=== PATIENT | male | born 1965 | race Caucasian/White ===

== ENCOUNTER 2018-10-17 11:41 | Inpatient (IN) | payer OTHER ==
[~2018-10-17] VITALS: Ht 185.4 cm; Wt 163.4 kg
[2018-10-17] VITALS (21 sets, daily range): BP systolic 96–132; BP diastolic 58–83; PULSE 70–87; RESP 13–27
[2018-10-17] MEDS ORDERED: ETOMIDATE 20 MG INJ IV STA (12:44)
[2018-10-17] MEDS ORDERED: SUCCINYLCHOLINE CHLORIDE 100 MG/5 ML SYG IV STA (12:44)
[2018-10-17] MEDS ORDERED: PROPOFOL 100 ML IV STA (12:44)
[2018-10-17] MEDS ORDERED: IPRATROPIUM (NEB) 0.5 MG/2.5 ML AMP INH STA (13:08)
[2018-10-17] MEDS ORDERED: ALBUTEROL 0.5% (NEB) 2.5 MG/0.5 ML AMP INH STA (13:08)
[2018-10-17] MEDS ORDERED: LISI-471 PO (13:10)
[2018-10-17] MEDS ORDERED: HYDR25TA6 PO (13:10)
--- NOTE | 2018-10-17 13:29 | ERD ---
ER Documentation Chief Complaint Chief Complaint sob, rash, bilat foot pain, bodyaches x 5 days HPI This is a 52-year-old male with a past medical history of hypertension. The patient lives in a group home house. EMS indicated that his sister had been visiting him and noticed the patient appeared very disheveled and was having some difficulty breathing with shortness of breath. Therefore she phoned 911. When EMS arrived they stated that the patient was alert and awake answering questions and mild dyspnea. The patient smokes tobacco. Indicates he does not have any underlying pulmonary disease. Indicates he has had a rash in the groin region and over his feet for the past 5 days. He had a productive cough with whitish sputum. The patient is morbidly obese and states he is able to ambulate with assistance. He denies any recent hospitalizations. He denies a headache. His sister arrived to the emergency department indicated that 7 years ago the patient was at all of the hospital and indicated he was a prediabetic. Since that time she indicates the patient goes to a free clinic to receive care but indicates the patient is noncompliant with all his medications. She also indicates that the patient takes Lasix. They have a family history as his father had congestive heart failure with a pacemaker ROS All systems reviewed and are negative except as per history of present illness. Medications Home Meds Reported Medications Hydrochlorothiazide* (Hydrochlorothiazide*) 25 Mg Tab, 25 MG PO DAILY, #30 TAB 10/17/18 Lisinopril* (Lisinopril*) 20 Mg Tablet, 20 MG PO DAILY, #30 TAB 10/17/18 Allergies Allergies: Coded Allergies: No Known Allergy (Unverified , 10/17/18) PMhx/Soc Medical and Surgical Hx: pt denies Medical Hx Hx Cardiac Disorders: Yes (htn) Hx Psychiatric Problems: No Hx Miscellaneous Medical Probl: Yes (dm, obese) Hx Alcohol Use: Yes Hx Substance Use: Yes Hx Tobacco Use: Yes Smoking Status: Current every day smoker Physical Exam Vitals Vital Signs Date Temp Pulse Resp B/P (MAP) Pulse Ox O2 O2 Flow FiO2 Time Delivery Rate 10/17/18 83 22 96 100 13:57 10/17/18 82 24 142/81 95 BIPAP 13:45 (101) 10/17/18 97 21 89 21 13:20 10/17/18 Nasal 4 13:14 Cannula 10/17/18 Nasal 3.0 11:55 Cannula 10/17/18 97.7 102 30 146/90 77 11:51 (108) 10/17/18 89 90 100 11:45 Physical Exam Constitutional:Well-developed. Well-nourished. Patient in severe respiratory distress HEENT:Normocephalic. Atraumatic.Pupils were equal round reactive to light. Moist mucous membranes.No tonsillar exudates. Neck: No nuchal rigidity. No lymphadenopathy. No posterior cervical spine tenderness or step-offs. Respiratory: Patient using accessory muscles of respiration. Unable to speak more than 2 or to the time before becoming short of breath. Wheezing on end auscultation bilaterally. With rhonchi heard in the bilateral lung bases. Cardiovascular: Regular rate regular rhythm.No murmurs. No rubs were appreciated.S1, S2 normal. Distal pulses are palpable 2+ bilaterally. GI: Abdomen was obese exam is limited due to body habitus. Nontender. Non Distended. No pulsatile abdominal masses or bruits. No rebound. No guarding. Bowel sounds were present and normal. Muscle skeletal: Full range of motion of both the upper and lower extremities bilaterally.Normal muscle tone.excoriation the bilateral lower extremities with loss of hair the bilateral lower extremities, unable to lift the bilateral lower extremities against gravity. 1+ pitting edema of the lower extremities : Significant scrotal edema. No evidence of Ozzy's gangrene as there is no necrosis, no pain out of proportion to physical exam and no fluctuance or induration Skin: No petechia, no purpura. No lesions on the palms or the soles of the feet. No maculopapular rash. Diffuse anasarca. Erythremia redness over the pannus of the abdomen and anterior third of the bilateral thighs. Pain not out of proportion to physical exam and no subcutaneous emphysema. NEURO: Patient was alert, awake, orientated x3.No facial droop. Gait not observed as patient is unable to ambulate without assistance. Patient followed verbal command. Result Diagram: 10/18/18 0430 10/18/18 7216 Results 24 hrs Laboratory Tests Test 10/17/18 11:47 10/17/18 11:52 10/17/18 12:44 10/17/18 13:28 Bedside Glucose 278 mg/dL White Blood 7.3 10^3/ul Count Red Blood Count 5.27 10^6/ul Hemoglobin 14.9 g/dl Hematocrit 49.2 % Mean 93.4 fl Corpuscular Volume Mean 28.3 pg Corpuscular Hemoglobin Mean 30.3 g/dl Corpuscular Hemoglobin Conc ent Red Cell 15.4 % Distribution Width Platelet Count 288 10^3/UL Mean Platelet 9.6 fl Volume Immature 1.200 % Granulocytes % Neutrophils % 67.1 % Lymphocytes % 15.5 % Monocytes % 13.7 % Eosinophils % 1.4 % Basophils % 1.1 % Nucleated Red 0.3 /100WBC Blood Cells % Immature 0.090 10^3/ul Granulocytes # Neutrophils # 4.9 10^3/ul Lymphocytes # 1.1 10^3/ul Monocytes # 1.0 10^3/ul Eosinophils # 0.1 10^3/ul Basophils # 0.1 10^3/ul Nucleated Red 0.0 10^3/ul Blood Cells # Prothrombin 15.3 Sec Time Prothrombin 1.2 Time Ratio INR 1.20 International Normalized Rati o Activated 31.9 Sec Partial Thrombo plast Time Sodium Level 134 mmol/L Potassium Level 4.3 mmol/L Chloride Level 90 mmol/L Carbon Dioxide 36 mmol/L Level Anion Gap 8 Blood Urea 16 mg/dl Nitrogen Creatinine 0.92 mg/dl Est Glomerular > 60 mL/min Filtrat Rate mL/min Glucose Level 301 mg/dl Hemoglobin A1c 10.4 % Calcium Level 8.8 mg/dl Total Bilirubin 0.6 mg/dl Direct 0.00 mg/dl Bilirubin Indirect 0.6 mg/dl Bilirubin Aspartate Amino 113 IU/L Transf (AST/SGO T) Alanine 52 IU/L Aminotransferas e (ALT/SGPT) Alkaline 143 IU/L Phosphatase Creatine Kinase 107 IU/L Creatine Kinase 3.2 Index Creatinine 3.43 ng/ml Kinase MB (Mass) Troponin I 0.013 ng/ml B-Type 1770 PG/ML Natriuretic Peptide Total Protein 6.9 g/dl Albumin 3.4 g/dl Globulin 3.50 g/dl Albumin/Globuli 0.97 n Ratio Free Thyroxine 2.46 ug/ml Index Thyroxine (T4) 6.2 ug/dl Triiodothyronin 39.7 % e (T3) Uptake Salicylates < 1.0 mg/dl Level Acetaminophen < 10.0 ug/ml Level Ethyl Alcohol < 10.0 mg/dl Level Blood Gas Blood arterial Specimen Source Arterial Blood 10/17/2018 1:37: Date Drawn 54 PM Arterial Blood 7.093 pH (Temp corrected ) Arterial Blood 126.3 mmhg pCO2 (Temp correct) Arterial Blood 87.5 mmHG pO2 (Temp corrected ) Arterial Blood 37.7 mmol/L HCO3 Arterial Blood 2.5 mmol/L Base Excess Arterial Blood 93.4 mmHG Oxygen Saturati on Danilo Test ACCEPTAB Arterial Blood Right Radial Gas Puncture Site Arterial 3.8 % Blood Carboxyhe moglobin Arterial Blood 0.4 % Methemoglobin Blood Gas A-a 499.2 mmHg O2 Differential Oxyhemoglobin 89.5 % Percent Blood Gas 37.0 C Temperature Blood Gas 18.0 Respiration Rate Blood Gas 21 Actual Respiration Rat e Blood Gas MASK - BIPAP Modality FiO2 100.0 % Blood Gas 12 Pressure Support Blood Gas 18/6 IPAP/EPAP Ratio Blood Gas CHERIE Peterson Critical Value Read Back Blood Gas MDA Notified Whom Blood Gas 10/17/2018 1:41: Notified Time 34 PM POC Venous 1.8 mmol/L Lactate Test 10/17/18 13:50 Urine Color NEELA Urine Clarity CLEAR Urine pH 5.0 Urine Specific 1.022 [place] Urine Ketones NEGATIVE mg/dL Urine Nitrite NEGATIVE mg/dL Urine Bilirubin NEGATIVE mg/dL Urine 2+ mg/dL Urobilinogen Urine Leukocyte NEGATIVE Aubrey/ul Esterase Urine 9 /HPF Microscopic RBC Urine 4 /HPF Microscopic WBC Urine NEGATIVE mg/dL Hemoglobin Urine Glucose 2+ mg/dL Urine Total 3+ mg/dl Protein Urine Opiates Negative Screen Urine Negative Barbiturates Urine Negative Amphetamines Screen Urine Negative Benzodiazepines Screen Urine Cocaine Negative Screen Urine Positive Cannabinoids Current Medications Medications Dose Sig/Efrain Start Time Status Last (Trade) Ordered Route PRN Stop Time Admin Dose Reason Admin 100 mg ONCE STAT 10/17/18 DC 10/17/18 Succinylcholi IV 12:44 12:44 ne Chloride 10/17/18 13:19 (Anectine Syringe) Etomidate 20 mg ONCE STAT 10/17/18 DC 10/17/18 (Amidate) IV 12:44 12:44 10/17/18 13:19 Propofol 100 ml @ ONCE STAT 10/17/18 DC 10/17/18 7.909 mls/ IV 12:44 14:18 hr 10/18/18 01:22 Furosemide 40 mg ONCE ONCE 10/17/18 DC 10/17/18 (Lasix) IV 13:30 13:16 10/17/18 13:31 Albuterol 10 mg ONCE STAT 10/17/18 DC 10/17/18 (Proventil INH 13:08 13:19 0.5% (Neb)) 10/17/18 13:09 Ipratropium 1 mg ONCE STAT 10/17/18 DC 10/17/18 Antonito INH 13:08 13:19 (Atrovent 10/17/18 13:09 0.02% (Neb)) Piperacillin 100 ml @ ONCE ONCE 10/17/18 DC 10/17/18 Sod/ 200 mls/hr IVPB 13:30 14:20 Tazobactam 10/17/18 13:59 Sod Vancomycin 250 ml @ ONCE ONCE 10/17/18 DC 10/17/18 HCl 125 mls/hr IVPB 13:30 16:26 10/17/18 15:29 125 mg ONCE ONCE 10/17/18 DC 10/17/18 Methylprednis IV 13:30 14:20 olone Sodium 10/17/18 13:51 Succinate (Solu-Medrol) Furosemide 40 mg ONCE ONCE 10/17/18 DC 10/17/18 (Lasix) IV 14:00 14:20 10/17/18 14:01 Procedures/MDM The patient presented to the emergency department with dyspnea. My differential diagnosis included but was not limited to upper airway obstruction, CHF, pulmonary embolism, cardiac ischemia, pneumonia, pneumothorax, anemia, drug overdose, pulmonary edema, COPD or asthma. Patient was immediately placed on a bus driver/monitor continuous pulse oximetry and IV access was established by nursing staff. Given that the patient was in severe respiratory distress with a heavy tobacco use history I could not rule out the possibility of new onset emphysematous disease or obstructive pulmonary disease. He was placed on noninvasive mechanical ventilation continuous nebulizer treatments of albuterol Atrovent given 125 mg of Solu-Medrol. 12 Lead EKG tracing ordered and reviewed by myself showed: Sinus tachycardia 103 bpm and no arrhythmia. IN interval normal. QRS duration normal. No ST segment elevation No ST segment depression. No changes consistent with acute ischemia. I obtained a 1 view chest radiograph were reviewed by myself which indicated the following : mild cardiomegaly with pulmonary vascular congestion. Slightly more focal right lower lobe consolidation, may represent associated pneumonia. The patient was high risk of aspiration pneumonia. Therefore blood cultures and urine culture was obtained. Placed a [place] catheter given that the patient is unable to ambulate he will be undergoing diuresis due to suspected new onset congestive heart failure. The patient hyperglycemic without ketosis. He states he has no history of underlying diabetes and therefore hemoglobin A1c will be obtained. Gentle IV fluids was given to the patient in order to prevent further respiratory distress. Arterial blood gas have been ordered and reviewed by myself patient the patient had severe respiratory acidosis. PH was 7.0. Patient's PCO2 was 126. The patient became more altered and therefore at this time I did feel the patient r equired emergent intubation due to impending airway failure. RSI was performed. The patient was given 10 mg of etomidate for sedation followed by 100 mg of succinylcholine. The patient is a very difficult intubation due to his morbid obesity and swelling of his anterior airway. The patient had very poor oral dentition, missing multiple teeth with avulsion of the frontal incisor. An 8 oh endotracheal tube is seen in past going to the cords by myself. The tube was confirmed to be in good placement with equal symmetrical breath sounds are bilaterally, condensation seen within the tube and good capnometry change x6. The tube was secured to the lip line of 26 cm. Repeat chest radiograph after intubation reviewed by myself and the radiologist indicated the followin. Interval intubation with the tube tip 3.5 cm superior to the viviana. 2. Persistent moderate cardiomegaly with pulmonary vascular congestion. 3. Streaky infiltrate or subsegmental atelectasis extends from the perihilar regions in the lower lung zones bilaterally, slightly worsened, and a small left pleural fluid accumulation cannot be excluded. No pneumothorax is evident. The patient had been placed on propofol for sedation. He will be going to the intensive care unit and admitted under the care of the hospitalist Dr. Villarreal. Critical Care: Time: 90 minutes Treatments/Evaluations: Close monitoring and treatment of unstable vital signs, cardiorespiratory, and neurologic status, while maintaining tight balance of fluid, respiratory, and cardiac interventions. Time does not include performing any of the above billable procedures. Departure Diagnosis: Primary Impression: CHF (congestive heart failure) Heart failure type: unspecified Heart failure chronicity: acute Qualified Codes: I50.9 - Heart failure, unspecified Additional Impressions: Aspiration pneumonia Aspiration pneumonia type: unspecified Laterality: right Lung location: lower lobe of lung Qualified Codes: J69.0 - Pneumonitis due to inhalation of food and vomit Hyperglycemia without ketosis Acute respiratory acidosis CO2 narcosis Condition: Serious TAVO CRESPO MD Oct 17, 2018 13:29
[2018-10-17] MEDS ORDERED: PIPER-TAZO 3.375 GM IV (PMX) 100 ML IVPB ONE (13:30)
[2018-10-17] MEDS ORDERED: VANCOMYCIN 1 GM (PMX) 250 ML IVPB ONE (13:30)
[2018-10-17] MEDS ORDERED: METHYLPREDNISOLONE 125 MG INJ IV ONE (13:30)
[2018-10-17] MEDS ORDERED: FUROSEMIDE 40 MG INJ IV ONE ×2 (13:30→14:00)
[2018-10-17] MEDS ORDERED: ONDANSETRON 4 MG INJ IV PRN (14:30)
[2018-10-17] MEDS ORDERED: ACETAMINOPHEN 325 MG TAB PO PRN (14:30)
[2018-10-17] MEDS ORDERED: NACL 0.9% 3 ML SYG IV SCH (15:30)
--- NOTE | 2018-10-17 15:56 | HP ---
Date/Time of Note Date/Time of Note DATE: 10/17/18 TIME: 15:41 Assessment/Plan VTE Prophylaxis SCD applied (from Nsg): Yes Pharmacological prophylaxis: heparin Lines/Catheters IV Catheter Type (from Nrsg): Saline Lock Urinary Cath still in place: Yes Reason Cath still needed: urinary retention Assessment/Plan Hospital Course 52 yo male with h/o morbid obesity, DMII who presents with acute hypercapneic and hypoxic respiratory failure PULM: Respiratory failure: - likely OHS, CHF both contributing. May have some COPD as well - Mechancal ventilation per pulmonary - Bronchodilators - no clear pneumonia but will treat with levaquin for now CV: CHF: - Lasix to euvolemia - TTE pending ENDO: DMII: - insulin drip To ICU Result Diagram: 10/17/18 1152 10/17/18 1152 Results 24hrs Laboratory Tests Test 10/17/18 11:47 10/17/18 11:52 10/17/18 12:44 10/17/18 13:28 Bedside Glucose 278 H White Blood Count 7.3 Red Blood Count 5.27 Hemoglobin 14.9 Hematocrit 49.2 Mean Corpuscular 93.4 Volume Mean Corpuscular 28.3 L Hemoglobin Mean Corpuscular 30.3 L Hemoglobin Concen t Red Cell 15.4 H Distribution Width Platelet Count 288 Mean Platelet 9.6 Volume Immature 1.200 H Granulocytes % Neutrophils % 67.1 Lymphocytes % 15.5 Monocytes % 13.7 H Eosinophils % 1.4 Basophils % 1.1 Nucleated Red 0.3 H Blood Cells % Immature 0.090 H Granulocytes # Neutrophils # 4.9 Lymphocytes # 1.1 Monocytes # 1.0 H Eosinophils # 0.1 Basophils # 0.1 Nucleated Red 0.0 Blood Cells # Prothrombin Time 15.3 H Prothrombin Time 1.2 Ratio INR International 1.20 Normalized Ratio Activated 31.9 Partial Thrombopl ast Time Sodium Level 134 L Potassium Level 4.3 Chloride Level 90 L Carbon Dioxide 36 H Level Anion Gap 8 Blood Urea 16 Nitrogen Creatinine 0.92 Est Glomerular > 60 Filtrat Rate mL/min Glucose Level 301 H Hemoglobin A1c 10.4 H Calcium Level 8.8 Total Bilirubin 0.6 Direct Bilirubin 0.00 Indirect 0.6 Bilirubin Aspartate Amino 113 H Transf (AST/SGOT) Alanine 52 Aminotransferase (ALT/SGPT) Alkaline 143 H Phosphatase Creatine Kinase 107 Creatine Kinase 3.2 Index Creatinine Kinase 3.43 H MB (Mass) Troponin I 0.013 B-Type 1770 H Natriuretic Peptide Total Protein 6.9 Albumin 3.4 Globulin 3.50 H Albumin/Globulin 0.97 Ratio Free Thyroxine 2.46 Index Thyroxine (T4) 6.2 Triiodothyronine 39.7 (T3) Uptake Salicylates Level < 1.0 L Acetaminophen < 10.0 L Level Ethyl Alcohol < 10.0 H Level Blood Gas Blood arterial Specimen Source Arterial Blood 10/17/2018 1:37:5 Date Drawn 4 PM Arterial Blood pH 7.093 *L (Temp corrected) Arterial Blood 126.3 *H pCO2 (Temp correct) Arterial Blood 87.5 pO2 (Temp corrected) Arterial Blood 37.7 H HCO3 Arterial Blood 2.5 Base Excess Arterial Blood 93.4 L Oxygen Saturation Danilo Test ACCEPTAB Arterial Blood Right Radial Gas Puncture Site Arterial 3.8 H Blood Carboxyhemo globin Arterial Blood 0.4 Methemoglobin Blood Gas A-a O2 499.2 H Differential Oxyhemoglobin 89.5 L Percent Blood Gas 37.0 Temperature Blood Gas 18.0 Respiration Rate Blood Gas Actual 21 Respiration Rate Blood Gas MASK - BIPAP Modality FiO2 100.0 Blood Gas 12 Pressure Support Blood Gas 18/6 IPAP/EPAP Ratio Blood Gas CHERIE Peterson Critical Value Read Back Blood Gas MDA Notified Whom Blood Gas 10/17/2018 1:41:3 Notified Time 4 PM POC Venous 1.8 Lactate Test 10/17/18 13:50 Urine Color NEELA Urine Clarity CLEAR Urine pH 5.0 Urine Specific 1.022 [place] Urine Ketones NEGATIVE Urine Nitrite NEGATIVE Urine Bilirubin NEGATIVE Urine 2+ H Urobilinogen Urine Leukocyte NEGATIVE Esterase Urine Microscopic 9 H RBC Urine Microscopic 4 WBC Urine Hemoglobin NEGATIVE Urine Glucose 2+ H Urine Total 3+ H Protein Urine Opiates Negative Screen Urine Negative Barbiturates Urine Negative Amphetamines Screen Urine Negative Benzodiazepines Screen Urine Cocaine Negative Screen Urine Positive Cannabinoids HPI/ROS Admit Date/Time Admit Date/Time Hx of Present Illness 52 yo male with h/o morbid obesity, DMII presented with respiratory distress Patient currently intubated and unable to provide a history. Sister at bedside. Says he does not care for himself at all. Drinks heavily. Smokes heavily. Doesn't see doctors. She has been checking in on him at home. Has been combative over previous weeks. Over past days has developed SOB. Sister went by today and found him in severe respiratory distress so called 911. Here found to be in marked hypercapneic respiratory failure. Urgently intubated. Appears comfortable now PMH/Family/Social Past Medical History Morbid obesity Medications Current Medications Propofol 100 ml @ 7.909 mls/ hr ONCE STAT IV Last administered on 10/17/18at 14:18; Admin Dose 15.818 MLS/HR; Start 10/17/18 at 12:44; Stop 10/18/18 at 01:22 Ondansetron HCl (Zofran Inj) 4 mg ER BRIDGE PRN IV NAUSEA AND/OR VOMITING; Start 10/17/18 at 14:30; Stop 10/18/18 at 14:29 Acetaminophen (Tylenol Tab) 650 mg ER BRIDGE PRN PO MILD PAIN(1-3)OR ELEVATED TEMP; Start 10/17/18 at 14:30; Stop 10/18/18 at 14:29 Furosemide (Lasix) 20 mg BID DIURETICS IV ; Start 10/17/18 at 18:00 IV Flush (NS 3 ml) 3 ml PER PROTOCOL IV ; Start 10/17/18 at 15:30 Hydromorphone HCl (Dilaudid) 0.5 mg Q4H PRN IV SEVERE PAIN LEVEL 7-10; Start 10/17/18 at 15:30 Famotidine (Pepcid Iv) 20 mg Q12 IV ; Start 10/17/18 at 21:00 Enoxaparin Sodium (Lovenox) 30 mg DAILY SC ; Start 10/18/18 at 09:00 Coded Allergies: No Known Allergy (Unverified , 10/17/18) Social History Smoking Status: Current every day smoker Exam/Review of Systems Vital Signs Vitals Vital Signs Date Temp Pulse Resp B/P (MAP) Pulse Ox O2 O2 Flow FiO2 Time Delivery Rate 10/17/18 97.7 81 24 107/75 96 15:06 (86) 10/17/18 Mechanical 14:38 Ventilator 10/17/18 21 13:20 10/17/18 4 13:14 Exam Exam Morbid obesity Unkept Sedated Intubated Distant heart sounds Clear lungs anteriorly Morbidly obese belly with signs of ansarca, some panniculitis present Legs with venous stasis changes, mild pitting edema MILGROM,LUCIE K MD Oct 17, 2018 15:53
[2018-10-17] MEDS ORDERED: DEXTROSE 50% 50 ML SYRINGE IV PRN (16:00)
[2018-10-17] MEDS: ACCU-CHEK XX SCH ×6 (18:12→23:00)
[2018-10-17] MEDS: FUROSEMIDE 20 MG INJ IV SCH (18:15)
[2018-10-17] MEDS: LEVOFLOXACIN 750MG/D5W (PMX) 150 ML IVPB SCH (18:39)
[2018-10-17] MEDS: INSULIN HUMAN REGULAR 100 UNIT in SOD CHLORIDE 0.9% 99 ML IV SCH ×4 (18:48→23:07)
[2018-10-17] MEDS ORDERED: PROPOFOL 100 ML IV SCH (19:45)
[2018-10-17] MEDS: PROPOFOL 100 ML IV SCH ×2 (20:19→22:16)
[2018-10-17] MEDS: ALBUTEROL/IPRATROPIUM (NEB) 3 ML AMP HHN SCH (22:01)
[2018-10-17] MEDS: FAMOTIDINE 20 MG INJ IV SCH (22:03)
[2018-10-18] VITALS (84 sets, daily range): BP systolic 102–141; BP diastolic 63–96; PULSE 65–83; RESP 0–26; Ht 185.4 cm; Wt 163.4 kg
[2018-10-18] MEDS: INSULIN HUMAN REGULAR 100 UNIT in SOD CHLORIDE 0.9% 99 ML IV SCH ×6 (00:11→23:07)
[2018-10-18] MEDS: PROPOFOL 100 ML IV SCH ×9 (00:50→23:04)
[2018-10-18] MEDS: ACCU-CHEK XX SCH ×23 (01:12→23:08)
[2018-10-18] MEDS: ALBUTEROL/IPRATROPIUM (NEB) 3 ML AMP HHN SCH ×3 (01:52→09:06)
[2018-10-18] MEDS: FUROSEMIDE 20 MG INJ IV SCH ×2 (06:01→18:25)
--- NOTE | 2018-10-18 09:19 | CONS ---
Date/Time of Note Date/Time of Note DATE: 10/18/18 TIME: 09:14 Assessment/Plan Assessment/Plan Assessment/Plan Chest x-ray showing cardiomegaly with bibasilar infiltrates likely due to CHF however difficult to rule out superimposed pneumonia. Ventilator setting; AC of 22, tidal volume 550, PEEP of 10, 100% FiO2. Assessment recommendations; 1. Patient with history of underlying morbid obesity and chronic type II re spiratory failure admitted for CHF exacerbation with pulmonary edema and severe hypercapnia. 2. Likely superimposed pneumonia as well. 3. History of diabetes and hypertension. Continue current supportive care. Wean down FiO2 as tolerated. Obtain follow- up chest x-ray 24 hours. I did have a detailed discussion with the patient's sister at bedside and answered all questions. 40 minutes of critical care time was spent evaluating the patient. Result Diagram: 10/18/18 0430 10/18/18 0425 Results 24hrs Laboratory Tests Test 10/17/18 11:47 10/17/18 11:52 10/17/18 12:44 10/17/18 13:28 Bedside Glucose 278 H White Blood 7.3 Count Red Blood Count 5.27 Hemoglobin 14.9 Hematocrit 49.2 Mean 93.4 Corpuscular Volume Mean 28.3 L Corpuscular Hemoglobin Mean 30.3 L Corpuscular Hemoglobin Conc ent Red Cell 15.4 H Distribution Width Platelet Count 288 Mean Platelet 9.6 Volume Immature 1.200 H Granulocytes % Neutrophils % 67.1 Lymphocytes % 15.5 Monocytes % 13.7 H Eosinophils % 1.4 Basophils % 1.1 Nucleated Red 0.3 H Blood Cells % Immature 0.090 H Granulocytes # Neutrophils # 4.9 Lymphocytes # 1.1 Monocytes # 1.0 H Eosinophils # 0.1 Basophils # 0.1 Nucleated Red 0.0 Blood Cells # Prothrombin 15.3 H Time Prothrombin 1.2 Time Ratio INR 1.20 International Normalized Rati o Activated 31.9 Partial Thrombo plast Time Sodium Level 134 L Potassium Level 4.3 Chloride Level 90 L Carbon Dioxide 36 H Level Anion Gap 8 Blood Urea 16 Nitrogen Creatinine 0.92 Est Glomerular > 60 Filtrat Rate mL/min Glucose Level 301 H Hemoglobin A1c 10.4 H Calcium Level 8.8 Total Bilirubin 0.6 Direct 0.00 Bilirubin Indirect 0.6 Bilirubin Aspartate Amino 113 H Transf (AST/SGO T) Alanine 52 Aminotransferas e (ALT/SGPT) Alkaline 143 H Phosphatase Creatine Kinase 107 Creatine Kinase 3.2 Index Creatinine 3.43 H Kinase MB (Mass) Troponin I 0.013 B-Type 1770 H Natriuretic Peptide Total Protein 6.9 Albumin 3.4 Globulin 3.50 H Albumin/Globuli 0.97 n Ratio Free Thyroxine 2.46 Index Thyroxine (T4) 6.2 Triiodothyronin 39.7 e (T3) Uptake Salicylates < 1.0 L Level Acetaminophen < 10.0 L Level Ethyl Alcohol < 10.0 H Level Blood Gas Blood Specimen arterial Source Arterial Blood 10/17/2018 1:37 Date Drawn :54 PM Arterial Blood 7.093 *L pH (Temp corrected ) Arterial Blood 126.3 *H pCO2 (Temp correct) Arterial Blood 87.5 pO2 (Temp corrected ) Arterial Blood 37.7 H HCO3 Arterial Blood 2.5 Base Excess Arterial Blood 93.4 L Oxygen Saturati on Danilo Test ACCEPTAB Arterial Blood Right Radial Gas Puncture Site Arterial 3.8 H Blood Carboxyhe moglobin Arterial Blood 0.4 Methemoglobin Blood Gas A-a 499.2 H O2 Differential Oxyhemoglobin 89.5 L Percent Blood Gas 37.0 Temperature Blood Gas 18.0 Respiration Rate Blood Gas 21 Actual Respiration Rat e Blood Gas MASK - BIPAP Modality FiO2 100.0 Blood Gas 12 Pressure Support Blood Gas 18/6 IPAP/EPAP Ratio Blood Gas CHERIE Peterson Critical Value Read Back Blood Gas MDA Notified Whom Blood Gas 10/17/2018 1:41 Notified Time :34 PM POC Venous 1.8 Lactate Test 10/17/18 13:50 10/17/18 15:03 10/17/18 16:13 10/17/18 16:41 Urine Color NEELA Urine Clarity CLEAR Urine pH 5.0 Urine Specific 1.022 [place] Urine Ketones NEGATIVE Urine Nitrite NEGATIVE Urine Bilirubin NEGATIVE Urine 2+ H Urobilinogen Urine Leukocyte NEGATIVE Esterase Urine 9 H Microscopic RBC Urine 4 Microscopic WBC Urine NEGATIVE Hemoglobin Urine Glucose 2+ H Urine Total 3+ H Protein Urine Opiates Negative Screen Urine Negative Barbiturates Urine Negative Amphetamines Screen Urine Negative Benzodiazepines Screen Urine Cocaine Negative Screen Urine Positive Cannabinoids Blood Gas Blood arterial Specimen Source Arterial Blood 10/17/2018 8:25: Date Drawn 39 PM Arterial Blood 7.336 L pH (Temp corrected ) Arterial Blood 61.3 H pCO2 (Temp correct) Arterial Blood 67.5 L pO2 (Temp corrected ) Arterial Blood 32.0 H HCO3 Arterial Blood 4.1 H Base Excess Arterial Blood 92.0 L Oxygen Saturati on Danilo Test ACCEPTAB Arterial Blood Right Radial Gas Puncture Site Arterial 2.1 Blood Carboxyhe moglobin Arterial Blood 0.3 Methemoglobin Blood Gas A-a 584.2 H O2 Differential Oxyhemoglobin 89.8 L Percent Blood Gas 37.0 Temperature Blood Gas 22.0 Respiration Rate Blood Gas 22 Actual Respiration Rat e Blood Gas VENT - AC Modality FiO2 100.0 Blood Gas Tidal 550.0 Volume Blood Gas Low 5.0 PEEP Setting Blood Gas 31.0 Inspiratory Pressure Blood Gas UP Notified Whom Blood Gas 10/17/2018 8:36: Notified Time 42 PM POC Venous 2.3 *H Lactate Bedside Glucose 233 H Test 10/17/18 18:11 10/17/18 19:01 10/17/18 20:01 10/17/18 21:01 Bedside Glucose 235 H 240 H 221 H 217 Test 10/17/18 22:02 10/17/18 22:58 10/17/18 23:59 10/18/18 00:53 Bedside Glucose 220 209 209 184 Test 10/18/18 02:05 10/18/18 03:34 10/18/18 04:25 10/18/18 04:30 Bedside Glucose 175 148 Sodium Level 136 Potassium Level 4.5 Chloride Level 92 L Carbon Dioxide 35 H Level Anion Gap 9 Blood Urea 20 Nitrogen Creatinine 0.90 Est Glomerular > 60 Filtrat Rate mL/min Glucose Level 174 # Calcium Level 8.5 Total Bilirubin 0.2 Direct 0.00 Bilirubin Indirect 0.2 Bilirubin Aspartate Amino 107 H Transf (AST/SGO T) Alanine 52 Aminotransferas e (ALT/SGPT) Alkaline 103 Phosphatase Total Protein 6.2 Albumin 3.0 L Globulin 3.20 Albumin/Globuli 0.93 n Ratio White Blood 7.1 Count Red Blood Count 4.95 Hemoglobin 14.0 Hematocrit 44.5 Mean 89.9 Corpuscular Volume Mean 28.3 L Corpuscular Hemoglobin Mean 31.5 L Corpuscular Hemoglobin Conc ent Red Cell 16.1 H Distribution Width Platelet Count 270 Mean Platelet 9.8 Volume Immature 0.700 H Granulocytes % Neutrophils % 71.8 Lymphocytes % 15.0 Monocytes % 12.4 H Eosinophils % 0.0 Basophils % 0.1 Nucleated Red 0.4 H Blood Cells % Immature 0.050 H Granulocytes # Neutrophils # 5.1 Lymphocytes # 1.1 Monocytes # 0.9 Eosinophils # 0.0 Basophils # 0.0 Nucleated Red 0.0 Blood Cells # Hemoglobin A1c 10.5 H Test 10/18/18 04:58 10/18/18 05:00 10/18/18 06:04 10/18/18 06:44 Bedside Glucose 147 154 154 Blood Gas Blood arterial Specimen Source Arterial Blood 10/18/2018 4:45: Date Drawn 04 AM Arterial Blood 7.369 pH (Temp corrected ) Arterial Blood 59.4 H pCO2 (Temp correct) Arterial Blood 77.9 L pO2 (Temp corrected ) Arterial Blood 33.5 H HCO3 Arterial Blood 6.1 H Base Excess Arterial Blood 95.1 Oxygen Saturati on Danilo Test ACCEPTAB Arterial Blood Right Radial Gas Puncture Site Arterial 1.0 Blood Carboxyhe moglobin Arterial Blood 0.4 Methemoglobin Blood Gas A-a 575.7 H O2 Differential Oxyhemoglobin 93.8 Percent Blood Gas 37.0 Temperature Blood Gas 22.0 Respiration Rate Blood Gas 22 Actual Respiration Rat e Blood Gas VENT - AC Modality FiO2 100.0 Blood Gas Tidal 550.0 Volume Blood Gas Low 10.0 PEEP Setting Blood Gas UP Notified Whom Blood Gas 10/18/2018 5:05: Notified Time 25 AM Test 10/18/18 07:00 Blood Gas Blood arterial Specimen Source Arterial Blood 10/18/2018 8:30: Date Drawn 12 AM Arterial Blood 7.409 pH (Temp corrected ) Arterial Blood 55.5 H pCO2 (Temp correct) Arterial Blood 73.8 L pO2 (Temp corrected ) Arterial Blood 34.3 H HCO3 Arterial Blood 7.7 H Base Excess Arterial Blood 94.5 L Oxygen Saturati on Danilo Test ACCEPTAB Arterial Blood Right Radial Gas Puncture Site Arterial 0.9 Blood Carboxyhe moglobin Arterial Blood 0.3 Methemoglobin Blood Gas A-a 583.7 H O2 Differential Oxyhemoglobin 93.4 Percent Blood Gas 37.0 Temperature Blood Gas 22.0 Respiration Rate Blood Gas 22 Actual Respiration Rat e Blood Gas VENT - AC Modality FiO2 100.0 Blood Gas Tidal 550.0 Volume Blood Gas Low 10.0 PEEP Setting Blood Gas DT Notified Whom Blood Gas 10/18/2018 8:48: Notified Time 56 AM Consultation Date/Type/Reason Admit Date/Time Date of Consultation: Oct 18, 2018 Type of Consult Pulmonary/critical care Patient is a 52-year-old male who was brought into the hospital because of shortness of breath. Patient was in respiratory failure and required intubation. ABG was done which showed severe hypercapnia. By the time I saw the patient, patient is orally intubated and sedated. History was obtained from medical record as well as from patient's sister who was present in the room. Past medical history; 1. Chronic renal insufficiency. 2. Morbid obesity. Likely underlying sleep apnea syndrome. 3. Diabetes. 4. Hypertension. Medications; reviewed. Patient is currently on insulin drip at 7 units/h, propofol 20 mics per kilogram per minute. Other medications were reviewed as well. Allergies; none. Social history; positive for alcohol abuse and smoking. Family history; he is single, has 3 children. Patient is with his sisters who take care of him. Occupational history; patient is on medical leave. Review of system; unable to be obtained. General exam; middle-aged male, morbidly obese, orally intubated, sedated, currently in no distress. Past Medical History Medications Current Medications Furosemide (Lasix) 20 mg BID DIURETICS IV Last administered on 10/18/18at 06:01; Admin Dose 20 MG; Start 10/17/18 at 18:00 IV Flush (NS 3 ml) 3 ml PER PROTOCOL IV ; Start 10/17/18 at 15:30 Hydromorphone HCl (Dilaudid) 0.5 mg Q4H PRN IV SEVERE PAIN LEVEL 7-10; Start 10/17/18 at 15:30 Famotidine (Pepcid Iv) 20 mg Q12 IV Last administered on 10/17/18at 22:03; Admin Dose 20 MG; Start 10/17/18 at 21:00 Enoxaparin Sodium (Lovenox) 30 mg DAILY SC ; Start 10/18/18 at 09:00 Diagnostic Test (Pha) (Accu-Chek) 1 ea Q1H XX Last administered on 10/18/18at 08:56; Admin Dose 1 EA; Start 10/17/18 at 18:00 Insulin Human Regular 100 unit/ Sodium Chloride 100 ml @ 0 mls/hr PER PROTOCOL IV Last administered on 10/18/18at 09:08; Admin Dose 5 MLS/HR; Start 10/17/18 at 18:00 Miscellaneous Information (* Miscellaneous Pharmacy Order) Treatment of Hypoglycemia: 1.BG 51... Per protocol XX ; Start 10/17/18 at 16:00 Dextrose (D50w Syringe) 25 ml Q15M PRN IV DECREASED GLUCOSE; Start 10/17/18 at 16:00 Levofloxacin/ Dextrose 150 ml @ 100 mls/hr Q24H IVPB Last administered on 10/17/18at 18:39; Admin Dose 100 MLS/HR; Start 10/17/18 at 18:00 Albuterol/ Ipratropium (Duoneb) 3 ml Q4H RESP THERAPY HHN Last administered on 10/18/18at 09:06; Admin Dose 3 ML; Start 10/17/18 at 21:00 Propofol 100 ml @ 7.909 mls/ hr Q12H IV Last administered on 10/18/18at 09:01; Admin Dose 31.637 MLS/HR; Start 10/17/18 at 20:00; Stop 10/24/18 at 19:59 Allergies: Coded Allergies: No Known Allergy (Unverified , 10/17/18) Social History Smoking Status: Current every day smoker Exam/Review of Systems Vital Signs Vitals Vital Signs Date Temp Pulse Resp B/P (MAP) Pulse Ox O2 O2 Flow FiO2 Time Delivery Rate 10/18/18 71 08:00 10/18/18 22 126/79 95 06:15 (95) 10/18/18 100 05:53 10/18/18 98.0 Mechanical 03:45 Ventilator 10/17/18 4 13:14 Intake and Output 10/17/18 10/17/18 10/18/18 1515:00 23:00 07:00 IntakeIntake Total 590 ml 160 ml OutputOutput Total 250 ml 500 ml BalanceBalance 340 ml -340 ml Exam H HEENT exam; supple neck, JVD difficult to see because of short neck. Patient has fair dentition. No neck masses. Orally intubated. Pupils are small bilaterally. Chest exam; diminished breath sounds throughout. S1-S2 audible, no murmurs. Regular rhythm. Abdomen exam; grossly protuberant. Organomegaly difficult to assess. Bowel sounds are sluggish. Extremity exam; chronic appearing lower extremity skin changes. With trace edema. [employer] exam; patient is sedated. Medications Medications Current Medications Furosemide (Lasix) 20 mg BID DIURETICS IV Last administered on 10/18/18at 06:01; Admin Dose 20 MG; Start 10/17/18 at 18:00 IV Flush (NS 3 ml) 3 ml PER PROTOCOL IV ; Start 10/17/18 at 15:30 Hydromorphone HCl (Dilaudid) 0.5 mg Q4H PRN IV SEVERE PAIN LEVEL 7-10; Start 10/17/18 at 15:30 Famotidine (Pepcid Iv) 20 mg Q12 IV Last administered on 10/17/18at 22:03; Admin Dose 20 MG; Start 10/17/18 at 21:00 Enoxaparin Sodium (Lovenox) 30 mg DAILY SC ; Start 10/18/18 at 09:00 Diagnostic Test (Pha) (Accu-Chek) 1 ea Q1H XX Last administered on 10/18/18at 08:56; Admin Dose 1 EA; Start 10/17/18 at 18:00 Insulin Human Regular 100 unit/ Sodium Chloride 100 ml @ 0 mls/hr PER PROTOCOL IV Last administered on 10/18/18 09:08; Admin Dose 5 MLS/HR; Start 10/17/18 at 18:00 Miscellaneous Information (* Miscellaneous Pharmacy Order) Treatment of Hypoglycemia: 1.BG 51... Per protocol XX ; Start 10/17/18 at 16:00 Dextrose (D50w Syringe) 25 ml Q15M PRN IV DECREASED GLUCOSE; Start 10/17/18 at 16:00 Levofloxacin/ Dextrose 150 ml @ 100 mls/hr Q24H IVPB Last administered on 10/17/18at 18:39; Admin Dose 100 MLS/HR; Start 10/17/18 at 18:00 Albuterol/ Ipratropium (Duoneb) 3 ml Q4H RESP THERAPY HHN Last administered on 10/18/18at 09:06; Admin Dose 3 ML; Start 10/17/18 at 21:00 Propofol 100 ml @ 7.909 mls/ hr Q12H IV Last administered on 10/18/18at 09:01; Admin Dose 31.637 MLS/HR; Start 10/17/18 at 20:00; Stop 10/24/18 at 19:59 ETTA BRANTLEY Oct 18, 2018 09:19
[2018-10-18] MEDS: FAMOTIDINE 20 MG INJ IV SCH ×2 (09:57→21:24)
[2018-10-18] MEDS: ENOXAPARIN 30 MG/0.3 ML SYG SC SCH (10:07)
[2018-10-18] MEDS: ALBUTEROL HFA 8 GM INHALER INH SCH ×3 (14:05→20:07)
[2018-10-18] MEDS: IPRATROPIUM (HFA) 12.9 GM INHALER INH SCH ×3 (14:05→20:08)
--- NOTE | 2018-10-18 16:32 | PN ---
Date/Time of Note Date/Time of Note DATE: 10/18/18 TIME: 16:31 Assessment/Plan VTE Prophylaxis Risk score (from Ns)>0 risk: 7 SCD applied (from Ns): No SCD contraindicated: low risk/ambulating Pharmacological prophylaxis: heparin Lines/Catheters IV Catheter Type (from Nrs): Peripheral IV Central line still needed: Yes Urinary Cath still in place: Yes Reason Cath still needed: urinary retention Assessment/Plan Hospital Course 52 yo male with h/o morbid obesity, DMII who presents with acute hypercapneic and hypoxic respiratory failure PULM: Respiratory failure: - likely OHS, CHF both contributing. May have some COPD as well - Mechancal ventilation per pulmonary - Bronchodilators - no clear pneumonia but will treat with levaquin for now CV: CHF: - Lasix to euvolemia - TTE pending ENDO: DMII: - insulin drip To ICU Result Diagram: 10/18/18 0430 10/18/18 0425 Results 24hrs Laboratory Tests Test 10/17/18 16:41 10/17/18 18:11 10/17/18 19:01 10/17/18 20:01 Bedside Glucose 233 H 235 H 240 H 221 H Test 10/17/18 21:01 10/17/18 22:02 10/17/18 22:58 10/17/18 23:59 Bedside Glucose 217 220 209 209 Test 10/18/18 00:53 10/18/18 02:05 10/18/18 03:34 10/18/18 04:25 Bedside Glucose 184 175 148 Sodium Level 136 Potassium Level 4.5 Chloride Level 92 L Carbon Dioxide 35 H Level Anion Gap 9 Blood Urea 20 Nitrogen Creatinine 0.90 Est Glomerular > 60 Filtrat Rate mL/min Glucose Level 174 # Calcium Level 8.5 Total Bilirubin 0.2 Direct Bilirubin 0.00 Indirect 0.2 Bilirubin Aspartate Amino 107 H Transf (AST/SGOT ) Alanine 52 Aminotransferase (ALT/SGPT) Alkaline 103 Phosphatase Total Protein 6.2 Albumin 3.0 L Globulin 3.20 Albumin/Globulin 0.93 Ratio Test 10/18/18 04:30 10/18/18 04:58 10/18/18 05:00 10/18/18 06:04 White Blood 7.1 Count Red Blood Count 4.95 Hemoglobin 14.0 Hematocrit 44.5 Mean Corpuscular 89.9 Volume Mean Corpuscular 28.3 L Hemoglobin Mean Corpuscular 31.5 L Hemoglobin Danni nt Red Cell 16.1 H Distribution Width Platelet Count 270 Mean Platelet 9.8 Volume Immature 0.700 H Granulocytes % Neutrophils % 71.8 Lymphocytes % 15.0 Monocytes % 12.4 H Eosinophils % 0.0 Basophils % 0.1 Nucleated Red 0.4 H Blood Cells % Immature 0.050 H Granulocytes # Neutrophils # 5.1 Lymphocytes # 1.1 Monocytes # 0.9 Eosinophils # 0.0 Basophils # 0.0 Nucleated Red 0.0 Blood Cells # Hemoglobin A1c 10.5 H Bedside Glucose 147 154 Blood Gas Blood arterial Specimen Source Arterial Blood 10/18/2018 4:45: Date Drawn 04 AM Arterial Blood 7.369 pH (Temp corrected) Arterial Blood 59.4 H pCO2 (Temp correct) Arterial Blood 77.9 L pO2 (Temp corrected) Arterial Blood 33.5 H HCO3 Arterial Blood 6.1 H Base Excess Arterial Blood 95.1 Oxygen Saturatio n Danilo Test ACCEPTAB Arterial Blood Right Radial Gas Puncture Site Arterial 1.0 Blood Carboxyhem oglobin Arterial Blood 0.4 Methemoglobin Blood Gas A-a O2 575.7 H Differential Oxyhemoglobin 93.8 Percent Blood Gas 37.0 Temperature Blood Gas 22.0 Respiration Rate Blood Gas Actual 22 Respiration Rate Blood Gas VENT - AC Modality FiO2 100.0 Blood Gas Tidal 550.0 Volume Blood Gas Low 10.0 PEEP Setting Blood Gas UP Notified Whom Blood Gas 10/18/2018 5:05: Notified Time 25 AM Test 10/18/18 06:44 10/18/18 07:00 10/18/18 08:59 10/18/18 10:13 Bedside Glucose 154 132 133 Blood Gas Blood arterial Specimen Source Arterial Blood 10/18/2018 8:30: Date Drawn 12 AM Arterial Blood 7.409 pH (Temp corrected) Arterial Blood 55.5 H pCO2 (Temp correct) Arterial Blood 73.8 L pO2 (Temp corrected) Arterial Blood 34.3 H HCO3 Arterial Blood 7.7 H Base Excess Arterial Blood 94.5 L Oxygen Saturatio n Danilo Test ACCEPTAB Arterial Blood Right Radial Gas Puncture Site Arterial 0.9 Blood Carboxyhem oglobin Arterial Blood 0.3 Methemoglobin Blood Gas A-a O2 583.7 H Differential Oxyhemoglobin 93.4 Percent Blood Gas 37.0 Temperature Blood Gas 22.0 Respiration Rate Blood Gas Actual 22 Respiration Rate Blood Gas VENT - AC Modality FiO2 100.0 Blood Gas Tidal 550.0 Volume Blood Gas Low 10.0 PEEP Setting Blood Gas DT Notified Whom Blood Gas 10/18/2018 8:48: Notified Time 56 AM Test 10/18/18 11:48 10/18/18 14:27 Bedside Glucose 136 134 Subjective 24 Hr Interval Summary Free Text/Dictation Requiring high FiO2 to 90% Remains intubated, sedated Exam/Review of Systems Vital Signs Vitals Vital Signs Date Temp Pulse Resp B/P (MAP) Pulse Ox O2 O2 Flow FiO2 Time Delivery Rate 10/18/18 69 16:00 10/18/18 23 96 12:45 10/18/18 134/96 Mechanical 12:30 (109) Ventilator 10/18/18 98.5 12:00 10/18/18 100 05:53 10/17/18 4 13:14 Intake and Output 10/17/18 10/17/18 10/18/18 1414:59 22:59 06:59 IntakeIntake Total 590 ml 160 ml OutputOutput Total 250 ml 500 ml BalanceBalance 340 ml -340 ml Exam Inbutaed Comfortable on sedation Lungs clear anteriorly without wheeze Morbid obesity Pannus of belly Legs iwth trace edema, venous stasis changes Medications Medications Current Medications Furosemide (Lasix) 20 mg BID DIURETICS IV Last administered on 10/18/18at 06:01; Admin Dose 20 MG; Start 10/17/18 at 18:00 IV Flush (NS 3 ml) 3 ml PER PROTOCOL IV ; Start 10/17/18 at 15:30 Hydromorphone HCl (Dilaudid) 0.5 mg Q4H PRN IV SEVERE PAIN LEVEL 7-10; Start 10/17/18 at 15:30 Famotidine (Pepcid Iv) 20 mg Q12 IV Last administered on 10/18/18at 09:57; Admin Dose 20 MG; Start 10/17/18 at 21:00 Enoxaparin Sodium (Lovenox) 30 mg DAILY SC Last administered on 10/18/18at 10:07; Admin Dose 30 MG; Start 10/18/18 at 09:00 Diagnostic Test (Pha) (Accu-Chek) 1 ea Q1H XX Last administered on 10/18/18at 14:31; Admin Dose 1 EA; Start 10/17/18 at 18:00 Insulin Human Regular 100 unit/ Sodium Chloride 100 ml @ 0 mls/hr PER PROTOCOL IV Last administered on 10/18/18at 09:08; Admin Dose 5 MLS/HR; Start 10/17/18 at 18:00 Miscellaneous Information (* Miscellaneous Pharmacy Order) Treatment of Hypoglycemia: 1.BG 51... Per protocol XX ; Start 10/17/18 at 16:00 Dextrose (D50w Syringe) 25 ml Q15M PRN IV DECREASED GLUCOSE; Start 10/17/18 at 16:00 Levofloxacin/ Dextrose 150 ml @ 100 mls/hr Q24H IVPB Last administered on 10/17/18at 18:39; Admin Dose 100 MLS/HR; Start 10/17/18 at 18:00 Propofol 100 ml @ 7.909 mls/ hr Q12H IV Last administered on 10/18/18at 14:28; Admin Dose 41.128 MLS/HR; Start 10/17/18 at 20:00; Stop 10/24/18 at 19:59 Albuterol (Ventolin Hfa) 4 puff Q4H RESP THERAPY INH Last administered on 10/18/18at 14:05; Admin Dose 4 PUFF; Start 10/18/18 at 13:00 Ipratropium Hortense (Atrovent Hfa) 4 puff Q4H RESP THERAPY INH Last administered on 10/18/18at 14:05; Admin Dose 4 PUFF; Start 10/18/18 at 13:00 LUCIE ELIZABETH MD Oct 18, 2018 16:32
--- NOTE | 2018-10-18 17:12 | RADRPT ---
Echocardiogram Report Patient Name: DUNIA TALLEY Gender: Male Date: 1965 Study Date: 18-Oct-2018 [place] Typist: Merari Melendez RDCS Location: [address] Physician: LUCIE ELIZABETH Quality: Adequate Procedures: Transthoracic echocardiogram with complete 2D, M-Mode, and doppler examination. Indications: Congestive Heart Failure. 2D/M Mode Doppler Measurement Value Normal Ranges Measurement Value Normal Ranges LVIDd 2D 4.6 3.5 - 5.6 cm AV Peak Enrike 1.3 m/sec LVIDs 2D 3.2 2.1 - 4.1 cm AV Peak PG 7.0 mmHg FS 2D 31.3 % LVOT Peak Enrike 0.8 m/sec LVPWd 2D 1.3 0.6 - 1.1 cm LVOT Peak PG 3.0 mmHg IVSd 2D 1.2 0.6 - 1.1 cm MV E Peak Enrike 0.7 m/sec IVS/LVPW 2D 0.9 MV A Peak Enrike 0.5 m/sec AoR Diam 2D 3.7 2.0 - 3.7 cm MV E/A 1.3 LA/Ao 2D 1 0 - 1 MV Decel Time 239 msec EDV 2D 99.3 cm3 MV E/A 1.3 ESV 2D 32.2 cm3 TR Peak Enrike 2.4 m/sec LA Dimen 2D 4.2 2.3 - 4.0 cm TR Peak PG 23.0 mmHg Findings Left Ventricle: Normal left ventricular systolic function. Normal left ventricular cavity size. Normal left ventricular wall thickness. Ejection fraction is visually estimated at 55 %. Right Ventricle: Normal right ventricular size. Normal right ventricular systolic function. Left Atrium: The left atrium is normal in size. Right Atrium: The right atrium is normal in size. Mitral Valve: Normal appearance of the mitral valve. Aortic Valve: Normal appearance of the aortic valve. No aortic regurgitation. Tricuspid Valve: Normal appearance of the tricuspid valve. Unable to obtain RVSP due to minimal presence of tricuspid regurgitation. No evidence of tricuspid regurgitation. Pericardium: Normal pericardium with no significant pericardial effusion. Aorta: Normal aortic root. IVC: The IVC is not well visualized. Conclusions Technically very difficult study with poor endocardial visualization and limited views. Normal left ventricular systolic function. Normal left ventricular cavity size. Normal left ventricular wall thickness. Ejection fraction is visually estimated at 55 %. No significant valvular stenosis or regurgitation seen. Unable to obtain RVSP due to minimal presence of tricuspid regurgitation. Electronically Signed By: Luis Porras 18-Oct-2018 17:11:01 -0800 Patient Name: DUNIA TALLEY Study Date: 18-Oct-2018 [id number]
[2018-10-18] MEDS: LEVOFLOXACIN 750MG/D5W (PMX) 150 ML IVPB SCH (18:24)
[2018-10-18] MEDS: HYDROmorphONE 0.5 MG/0.5 ML SYG IV PRN (20:50)
[2018-10-19] VITALS (49 sets, daily range): BP systolic 109–170; BP diastolic 71–126; PULSE 67–79; RESP 3–27
[2018-10-19] MEDS: ALBUTEROL HFA 8 GM INHALER INH SCH ×6 (00:17→20:00)
[2018-10-19] MEDS: IPRATROPIUM (HFA) 12.9 GM INHALER INH SCH ×6 (00:17→20:00)
[2018-10-19] MEDS: ACCU-CHEK XX SCH ×24 (00:55→23:00)
[2018-10-19] MEDS: PROPOFOL 100 ML IV SCH ×9 (01:31→21:53)
[2018-10-19] MEDS: HYDROmorphONE 0.5 MG/0.5 ML SYG IV PRN ×2 (01:31→12:53)
[2018-10-19] MEDS: INSULIN HUMAN REGULAR 100 UNIT in SOD CHLORIDE 0.9% 99 ML IV SCH ×2 (05:44→07:04)
[2018-10-19] MEDS: FUROSEMIDE 20 MG INJ IV SCH (06:43)
[2018-10-19] MEDS: FAMOTIDINE 20 MG INJ IV SCH ×2 (08:40→20:16)
[2018-10-19] MEDS: ENOXAPARIN 30 MG/0.3 ML SYG SC SCH (08:41)
--- NOTE | 2018-10-19 10:40 | CONS ---
Date/Time of Note Date/Time of Note DATE: 10/19/18 TIME: 10:37 Assessment/Plan Assessment/Plan Assessment/Plan Chest x-ray showing cardiomegaly with bilateral pulmonary edema. Rule out superimposed pneumonia. Ventilator setting; AC of 22, tidal volume 550, PEEP of 10, 100% FiO2. Patient is currently on propofol 25 mics per minute, insulin 1 unit/h. Assessment recommendations; 1. Patient admitted for acute on chronic severe hypercapnic respiratory failure requiring intubation. 2. CHF with possibly superimposed pneumonia. 3. History of diabetes and hypertension. Add cefepime 1 g every 12 hours. Lasix dose has been increased to 40 mg twice daily. Obtain follow-up chest x-ray 24 hours. Start tube feeding. Prognosis is guarded. I did have a detailed discussion with the patient's sister at bedside and an swered all questions. 35 minutes of critical care time was spent evaluating patient. Result Diagram: 10/19/18 0804 10/19/18 0804 Results 24hrs Laboratory Tests Test 10/18/18 11:48 10/18/18 14:27 10/18/18 16:41 10/18/18 18:34 Bedside Glucose 136 134 107 101 Test 10/18/18 20:25 10/18/18 22:59 10/19/18 00:54 10/19/18 03:24 Bedside Glucose 108 109 144 120 Test 10/19/18 05:03 10/19/18 06:41 10/19/18 08:03 10/19/18 08:04 Bedside Glucose 115 113 113 White Blood Count 9.2 # Red Blood Count 5.07 Hemoglobin 14.4 Hematocrit 45.7 Mean Corpuscular 90.1 Volume Mean Corpuscular 28.4 L Hemoglobin Mean Corpuscular 31.5 L Hemoglobin Concen t Red Cell 16.0 H Distribution Width Platelet Count 262 Mean Platelet 9.2 Volume Immature 0.400 Granulocytes % Neutrophils % 56.2 Lymphocytes % 32.0 Monocytes % 10.0 Eosinophils % 0.9 Basophils % 0.5 Nucleated Red 0.0 Blood Cells % Immature 0.040 H Granulocytes # Neutrophils # 5.2 Lymphocytes # 2.9 Monocytes # 0.9 Eosinophils # 0.1 Basophils # 0.1 Nucleated Red 0.0 Blood Cells # Sodium Level 138 Potassium Level 4.1 Chloride Level 92 L Carbon Dioxide 38 H Level Anion Gap 8 Blood Urea 22 H Nitrogen Creatinine 0.83 Est Glomerular > 60 Filtrat Rate mL/min Glucose Level 120 # Calcium Level 8.3 L Test 10/19/18 09:56 10/19/18 10:04 Blood Gas Blood arterial Specimen Source Arterial Blood 10/19/2018 10:20: Date Drawn 14 AM Arterial Blood pH 7.383 (Temp corrected) Arterial Blood 56.5 H pCO2 (Temp correct) Arterial Blood 85.6 pO2 (Temp corrected) Arterial Blood 32.9 H HCO3 Arterial Blood 6.0 H Base Excess Arterial Blood 95.9 Oxygen Saturation Danilo Test ACCEPTAB Arterial Blood Right Radial Gas Puncture Site Arterial 0.6 Blood Carboxyhemo globin Arterial Blood 0.3 Methemoglobin Blood Gas A-a O2 570.9 H Differential Oxyhemoglobin 95.0 Percent Blood Gas 37.0 Temperature Blood Gas 22.0 Respiration Rate Blood Gas Actual 22 Respiration Rate Blood Gas VENT - AC Modality FiO2 100.0 Blood Gas Tidal 550.0 Volume Blood Gas Low 10.0 PEEP Setting Blood Gas DT Notified Whom Blood Gas 10/19/2018 10:32: Notified Time 09 AM Bedside Glucose 125 Consultation Date/Type/Reason Admit Date/Time Oct 17, 2018 at 14:17 Initial Consult Date 10/18/18 Type of Consult Pulmonary/critical care Patient is a 52-year-old male who was brought into the hospital because of shortness of breath. Patient was in respiratory failure and required intubation. ABG was done which showed severe hypercapnia. By the time I saw the patient, patient is orally intubated and sedated. History was obtained from medical record as well as from patient's sister who was present in the room. Past medical history; 1. Chronic renal insufficiency. 2. Morbid obesity. Likely underlying sleep apnea syndrome. 3. Diabetes. 4. Hypertension. Medications; reviewed. Patient is currently on insulin drip at 7 units/h, prop ofol 20 mics per kilogram per minute. Other medications were reviewed as well. Allergies; none. Social history; positive for alcohol abuse and smoking. Family history; he is single, has 3 children. Patient is with his sisters who take care of him. Occupational history; patient is on medical leave. Review of system; unable to be obtained. General exam; middle-aged male, morbidly obese, orally intubated, sedated, currently in no distress. 24 HR Interval Summary Free Text/Dictation Patient's condition remains critical. Still requiring 100% FiO2 for hypoxemia. Patient however has remained hemodynamically stable. General exam; middle-aged male, morbidly obese, orally intubated and sedated. Currently no distress. Exam/Review of Systems Vital Signs Vitals Vital Signs Date Temp Pulse Resp B/P (MAP) Pulse Ox O2 O2 Flow FiO2 Time Delivery Rate 10/19/18 74 22 96 100 08:26 10/19/18 145/88 06:30 (107) 10/19/18 98.0 Mechanical 04:00 Ventilator 10/17/18 4 13:14 Intake and Output 10/18/18 10/18/18 10/19/18 1515:00 23:00 07:00 IntakeIntake Total 300.137 ml 447.284 ml 44.128 ml OutputOutput Total 870 ml 230 ml 675 ml BalanceBalance -569.863 ml 217.284 ml -630.872 ml Exam HEENT exam; supple neck, JVD difficult to see because of short neck. Patient has fair dentition. Orally intubated. Pupils are small bilaterally. No neck masses. Chest exam; diminished breath sounds throughout. S1-S2 audible, no murmurs. Regular rhythm. Abdomen exam; grossly protuberant. Organomegaly difficult to assess. Bowel sounds audible. Extremity exam; chronic appearing lower extremity skin changes with trace edema. 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 Medications Medications Current Medications IV Flush (NS 3 ml) 3 ml PER PROTOCOL IV ; Start 10/17/18 at 15:30 Hydromorphone HCl (Dilaudid) 0.5 mg Q4H PRN IV SEVERE PAIN LEVEL 7-10 Last administered on 10/19/18at 01:31; Admin Dose 0.5 MG; Start 10/17/18 at 15:30 Famotidine (Pepcid Iv) 20 mg Q12 IV Last administered on 10/19/18at 08:40; Admin Dose 20 MG; Start 10/17/18 at 21:00 Enoxaparin Sodium (Lovenox) 30 mg DAILY SC Last administered on 10/19/18at 08:41; Admin Dose 30 MG; Start 10/18/18 at 09:00 Diagnostic Test (Pha) (Accu-Chek) 1 ea Q1H XX Last administered on 10/19/18at 10:05; Admin Dose 1 EA; Start 10/17/18 at 18:00 Insulin Human Regular 100 unit/ Sodium Chloride 100 ml @ 0 mls/hr PER PROTOCOL IV Last administered on 10/19/18 07:04; Admin Dose 1 MLS/HR; Start 10/17/18 at 18:00 Miscellaneous Information (* Miscellaneous Pharmacy Order) Treatment of Hypoglycemia: 1.BG 51... Per protocol XX ; Start 10/17/18 at 16:00 Dextrose (D50w Syringe) 25 ml Q15M PRN IV DECREASED GLUCOSE; Start 10/17/18 at 16:00 Levofloxacin/ Dextrose 150 ml @ 100 mls/hr Q24H IVPB Last administered on 10/18/18 18:24; Admin Dose 100 MLS/HR; Start 10/17/18 at 18:00 Propofol 100 ml @ 7.909 mls/ hr Q12H IV Last administered on 10/19/18 10:00; Admin Dose 39.546 MLS/HR; Start 10/17/18 at 20:00; Stop 10/24/18 at 19:59 Albuterol (Ventolin Hfa) 4 puff Q4H RESP THERAPY INH Last administered on 10/19/18 08:26; Admin Dose 4 PUFF; Start 10/18/18 at 13:00 Ipratropium [place] (Atrovent Hfa) 4 puff Q4H RESP THERAPY INH Last admin istered on 10/19/18 08:26; Admin Dose 4 PUFF; Start 10/18/18 at 13:00 Furosemide (Lasix) 40 mg BID DIURETICS IV ; Start 10/19/18 at 10:30 ETTA BRANTLEY Oct 19, 2018 10:40
[2018-10-19] MEDS: FUROSEMIDE 40 MG INJ IV SCH ×2 (11:32→18:12)
[2018-10-19] MEDS: CEFEPIME 1GM/50 ML (PMX) 50 ML IVPB SCH ×2 (11:32→20:16)
--- NOTE | 2018-10-19 11:40 | PN ---
Date/Time of Note Date/Time of Note DATE: 10/19/18 TIME: 11:38 Assessment/Plan VTE Prophylaxis Risk score (from Ns)>0 risk: 6 SCD applied (from Ns): Yes Pharmacological prophylaxis: heparin Lines/Catheters IV Catheter Type (from Nrs): Peripheral IV Central line still needed: Yes Urinary Cath still in place: Yes Reason Cath still needed: urinary retention Assessment/Plan Hospital Course 52 yo male with h/o morbid obesity, DMII who presents with acute hypercapneic and hypoxic respiratory failure PULM: Respiratory failure: Very large A-a gradient and high FiO2 requiriement. Either CHF or pneumonia leading to hypoxia with OHS leading to hypercapnea - Mechancal ventilation per pulmonary - Bronchodilators - Empiric abx for pneumoina - Increase lasix to 40 BID CV: CHF: - Lasix to euvolemia - TTE wiht normal EF ENDO: DMII: - insulin drip Result Diagram: 10/19/18 0804 10/19/18 0804 Results 24hrs Laboratory Tests Test 10/18/18 11:48 10/18/18 14:27 10/18/18 16:41 10/18/18 18:34 Bedside Glucose 136 134 107 101 Test 10/18/18 20:25 10/18/18 22:59 10/19/18 00:54 10/19/18 03:24 Bedside Glucose 108 109 144 120 Test 10/19/18 05:03 10/19/18 06:41 10/19/18 08:03 10/19/18 08:04 Bedside Glucose 115 113 113 White Blood Count 9.2 # Red Blood Count 5.07 Hemoglobin 14.4 Hematocrit 45.7 Mean Corpuscular 90.1 Volume Mean Corpuscular 28.4 L Hemoglobin Mean Corpuscular 31.5 L Hemoglobin Concen t Red Cell 16.0 H Distribution Width Platelet Count 262 Mean Platelet 9.2 Volume Immature 0.400 Granulocytes % Neutrophils % 56.2 Lymphocytes % 32.0 Monocytes % 10.0 Eosinophils % 0.9 Basophils % 0.5 Nucleated Red 0.0 Blood Cells % Immature 0.040 H Granulocytes # Neutrophils # 5.2 Lymphocytes # 2.9 Monocytes # 0.9 Eosinophils # 0.1 Basophils # 0.1 Nucleated Red 0.0 Blood Cells # Sodium Level 138 Potassium Level 4.1 Chloride Level 92 L Carbon Dioxide 38 H Level Anion Gap 8 Blood Urea 22 H Nitrogen Creatinine 0.83 Est Glomerular > 60 Filtrat Rate mL/min Glucose Level 120 # Calcium Level 8.3 L Test 10/19/18 09:56 10/19/18 10:04 Blood Gas Blood arterial Specimen Source Arterial Blood 10/19/2018 10:20: Date Drawn 14 AM Arterial Blood pH 7.383 (Temp corrected) Arterial Blood 56.5 H pCO2 (Temp correct) Arterial Blood 85.6 pO2 (Temp corrected) Arterial Blood 32.9 H HCO3 Arterial Blood 6.0 H Base Excess Arterial Blood 95.9 Oxygen Saturation Danilo Test ACCEPTAB Arterial Blood Right Radial Gas Puncture Site Arterial 0.6 Blood Carboxyhemo globin Arterial Blood 0.3 Methemoglobin Blood Gas A-a O2 570.9 H Differential Oxyhemoglobin 95.0 Percent Blood Gas 37.0 Temperature Blood Gas 22.0 Respiration Rate Blood Gas Actual 22 Respiration Rate Blood Gas VENT - AC Modality FiO2 100.0 Blood Gas Tidal 550.0 Volume Blood Gas Low 10.0 PEEP Setting Blood Gas DT Notified Whom Blood Gas 10/19/2018 10:32: Notified Time 09 AM Bedside Glucose 125 Subjective 24 Hr Interval Summary Free Text/Dictation TTE with normal EF Remains intubated, sedated. Still requiring 100%FiO2 Exam/Review of Systems Vital Signs Vitals Vital Signs Date Temp Pulse Resp B/P (MAP) Pulse Ox O2 O2 Flow FiO2 Time Delivery Rate 10/19/18 77 22 146/93 93 Mechanical 11:00 (110) Ventilator 10/19/18 100 08:26 10/19/18 98.5 08:00 10/17/18 4 13:14 Intake and Output 10/18/18 10/18/18 10/19/18 1515:00 23:00 07:00 IntakeIntake Total 300.137 ml 447.284 ml 44.128 ml OutputOutput Total 870 ml 230 ml 675 ml BalanceBalance -569.863 ml 217.284 ml -630.872 ml Exam Intubated, sedated Comfortable Lungs clear anteriorly Morbid obesity Medications Medications Current Medications IV Flush (NS 3 ml) 3 ml PER PROTOCOL IV ; Start 10/17/18 at 15:30 Hydromorphone HCl (Dilaudid) 0.5 mg Q4H PRN IV SEVERE PAIN LEVEL 7-10 Last administered on 1/13/19at 01:31; Admin Dose 0.5 MG; Start 10/17/18 at 15:30 Famotidine (Pepcid Iv) 20 mg Q12 IV Last administered on 10/19/18 08:40; Admin Dose 20 MG; Start 10/17/18 at 21:00 Enoxaparin Sodium (Lovenox) 30 mg DAILY SC Last administered on 10/19/18 08:41; Admin Dose 30 MG; Start 10/18/18 at 09:00 Diagnostic Test (Pha) (Accu-Chek) 1 ea Q1H XX Last administered on 10/19/18 11:27; Admin Dose 1 EA; Start 10/17/18 at 18:00 Insulin Human Regular 100 unit/ Sodium Chloride 100 ml @ 0 mls/hr PER PROTOCOL IV Last administered on 10/19/18 07:04; Admin Dose 1 MLS/HR; Start 10/17/18 at 18:00 Miscellaneous Information (* Miscellaneous Pharmacy Order) Treatment of Hypoglycemia: 1.BG 51... Per protocol XX ; Start 10/17/18 at 16:00 Dextrose (D50w Syringe) 25 ml Q15M PRN IV DECREASED GLUCOSE; Start 10/17/18 at 16:00 Levofloxacin/ Dextrose 150 ml @ 100 mls/hr Q24H IVPB Last administered on 10/18/18 18:24; Admin Dose 100 MLS/HR; Start 10/17/18 at 18:00 Propofol 100 ml @ 7.909 mls/ hr Q12H IV Last administered on 10/19/18 10:00; Admin Dose 39.546 MLS/HR; Start 10/17/18 at 20:00; Stop 10/24/18 at 19:59 Albuterol (Ventolin Hfa) 4 puff Q4H RESP THERAPY INH Last administered on 10/19/18 08:26; Admin Dose 4 PUFF; Start 10/18/18 at 13:00 Ipratropium [place] (Atrovent Hfa) 4 puff Q4H RESP THERAPY INH Last administered on 10/19/18 08:26; Admin Dose 4 PUFF; Start 10/18/18 at 13:00 Furosemide (Lasix) 40 mg BID DIURETICS IV Last administered on 10/19/18 11:32; Admin Dose 40 MG; Start 10/19/18 at 10:30 Cefepime HCl 50 ml @ 100 mls/hr Q12 IVPB Last administered on 10/19/18at 11:32; Admin Dose 100 MLS/HR; Start 10/19/18 at 11:00 LUCIE ELIZABETH MD Oct 19, 2018 11:40
[2018-10-19] MEDS ORDERED: NYSTATIN 30 GM POWDER BTL TOP ONE (18:00)
[2018-10-19] MEDS: LEVOFLOXACIN 750MG/D5W (PMX) 150 ML IVPB SCH (18:12)
[2018-10-19] MEDS: NYSTATIN 30 GM POWDER BTL TOP SCH (21:23)
[2018-10-20] VITALS (47 sets, daily range): BP systolic 119–166; BP diastolic 67–107; PULSE 73–108; RESP 18–24
[2018-10-20] MEDS: IPRATROPIUM (HFA) 12.9 GM INHALER INH SCH ×5 (00:04→19:40)
[2018-10-20] MEDS: ALBUTEROL HFA 8 GM INHALER INH SCH ×5 (00:04→19:40)
[2018-10-20] MEDS: PROPOFOL 100 ML IV SCH ×12 (00:19→23:58)
[2018-10-20] MEDS: ACCU-CHEK XX SCH ×15 (01:00→14:53)
[2018-10-20] MEDS: FUROSEMIDE 40 MG INJ IV SCH ×2 (05:49→18:07)
[2018-10-20] MEDS: INSULIN HUMAN REGULAR 100 UNIT in SOD CHLORIDE 0.9% 99 ML IV SCH (05:55)
[2018-10-20] MEDS: CEFEPIME 1GM/50 ML (PMX) 50 ML IVPB SCH (08:23)
[2018-10-20] MEDS: FAMOTIDINE 20 MG INJ IV SCH ×2 (08:23→20:00)
[2018-10-20] MEDS: NYSTATIN 30 GM POWDER BTL TOP SCH ×2 (08:24→20:06)
[2018-10-20] MEDS: ENOXAPARIN 30 MG/0.3 ML SYG SC SCH (08:46)
--- NOTE | 2018-10-20 09:51 | CONS ---
Date/Time of Note Date/Time of Note DATE: 10/20/18 TIME: 09:48 Assessment/Plan Assessment/Plan Assessment/Plan Chest x-ray was reviewed from today which is showing cardiomegaly with changes of pulmonary edema Ventilator setting; AC of 22, tidal volume 550, PEEP of 10, 90% FiO2. Patient is currently on insulin 2.2 units/h, propofol 35 mics per kilogram per minute. Assessment and recommendations; 1. Patient admitted with respiratory failure due to underlying severe hypercapnia likely chronic type II respiratory failure with superimposed pulmonary edema as well as likely superimposed pneumonia as well. 2. Underlying morbid obesity. 3. History of diabetes. 4. History of hypertension. Continue current supportive care. Start tube feeding. Obtain follow-up chest x-ray 24 hours. I did have a detailed discussion with the patient's sisters at bedside and answered all their questions. Prognosis is guarded. Patient likely will need to have a tracheostomy performed. 35 minutes of critical care time was spent evaluating the patient. Result Diagram: 10/20/18 0510 10/20/18 0510 Results 24hrs Laboratory Tests Test 10/19/18 09:56 10/19/18 10:04 10/19/18 11:46 10/19/18 14:48 Blood Gas Blood arterial Specimen Source Arterial Blood 10/19/2018 10:20 Date Drawn :14 AM Arterial Blood 7.383 pH (Temp corrected) Arterial Blood 56.5 H pCO2 (Temp correct) Arterial Blood 85.6 pO2 (Temp corrected) Arterial Blood 32.9 H HCO3 Arterial Blood 6.0 H Base Excess Arterial Blood 95.9 Oxygen Saturatio n Danilo Test ACCEPTAB Arterial Blood Right Radial Gas Puncture Site Arterial 0.6 Blood Carboxyhem oglobin Arterial Blood 0.3 Methemoglobin Blood Gas A-a O2 570.9 H Differential Oxyhemoglobin 95.0 Percent Blood Gas 37.0 Temperature Blood Gas 22.0 Respiration Rate Blood Gas Actual 22 Respiration Rate Blood Gas VENT - AC Modality FiO2 100.0 Blood Gas Tidal 550.0 Volume Blood Gas Low 10.0 PEEP Setting Blood Gas DT Notified Whom Blood Gas 10/19/2018 10:32 Notified Time :09 AM Bedside Glucose 125 117 103 Test 10/19/18 16:46 10/19/18 18:17 10/19/18 19:56 10/19/18 21:26 Bedside Glucose 104 95 106 108 Test 10/19/18 23:31 10/20/18 01:58 10/20/18 04:12 10/20/18 05:10 Bedside Glucose 112 105 121 White Blood 7.5 Count Red Blood Count 5.06 Hemoglobin 14.2 Hematocrit 45.0 Mean Corpuscular 88.9 Volume Mean Corpuscular 28.1 L Hemoglobin Mean Corpuscular 31.6 L Hemoglobin Danni nt Red Cell 16.2 H Distribution Width Platelet Count 234 Mean Platelet 10.3 Volume Immature 0.400 Granulocytes % Neutrophils % 64.5 Lymphocytes % 23.1 Monocytes % 10.7 Eosinophils % 0.9 Basophils % 0.4 Nucleated Red 0.0 Blood Cells % Immature 0.030 Granulocytes # Neutrophils # 4.8 Lymphocytes # 1.7 Monocytes # 0.8 Eosinophils # 0.1 Basophils # 0.0 Nucleated Red 0.0 Blood Cells # Sodium Level 139 Potassium Level 4.4 Chloride Level 95 L Carbon Dioxide 37 H Level Anion Gap 7 Blood Urea 17 Nitrogen Creatinine 0.56 L Est Glomerular > 60 Filtrat Rate mL/min Glucose Level 111 Calcium Level 7.7 L Total Bilirubin 0.5 Direct Bilirubin 0.00 Indirect 0.5 Bilirubin Aspartate Amino 50 H Transf (AST/SGOT ) Alanine 32 Aminotransferase (ALT/SGPT) Alkaline 61 Phosphatase Total Protein 5.6 L Albumin 2.5 L Globulin 3.10 Albumin/Globulin 0.80 Ratio Test 10/20/18 05:51 10/20/18 07:00 10/20/18 08:22 Bedside Glucose 104 109 Blood Gas Blood arterial Specimen Source Arterial Blood 10/20/2018 7:15: Date Drawn 39 AM Arterial Blood 7.405 pH (Temp corrected) Arterial Blood 66.2 H pCO2 (Temp correct) Arterial Blood 77.4 L pO2 (Temp corrected) Arterial Blood 40.6 *H HCO3 Arterial Blood 12.5 H Base Excess Arterial Blood 94.6 L Oxygen Saturatio n Danilo Test ACCEPTAB Arterial Blood Right Radial Gas Puncture Site Arterial 0.6 Blood Carboxyhem oglobin Arterial Blood 0.3 Methemoglobin Blood Gas A-a O2 496.5 H Differential Oxyhemoglobin 93.7 Percent Blood Gas 37.0 Temperature Blood Gas 22.0 Respiration Rate Blood Gas Actual 22 Respiration Rate Blood Gas VENT - AC Modality FiO2 90.0 Blood Gas Tidal 550.0 Volume Blood Gas Low 10.0 PEEP Setting Blood Gas ASHISH CAMEJO Critical Value Read Back Blood Gas TM Notified Whom Blood Gas 10/20/2018 7:25: Notified Time 16 AM Consultation Date/Type/Reason Admit Date/Time Oct 17, 2018 at 14:17 Initial Consult Date 10/18/18 Type of Consult Pulmonary/critical care Patient is a 52-year-old male who was brought into the hospital because of shortness of breath. Patient was in respiratory failure and required intubation. ABG was done which showed severe hypercapnia. By the time I saw the patient, patient is orally intubated and sedated. History was obtained from medical record as well as from patient's sister who was present in the room. Past medical history; 1. Chronic renal insufficiency. 2. Morbid obesity. Likely underlying sleep apnea syndrome. 3. Diabetes. 4. Hypertension. Medications; reviewed. Patient is currently on insulin drip at 7 units/h, propofol 20 mics per kilogram per minute. Other medications were reviewed as well. Allergies; none. Social history; positive for alcohol abuse and smoking. Family history; he is single, has 3 children. Patient is with his sisters who take care of him. Occupational history; patient is on medical leave. Review of system; unable to be obtained. General exam; middle-aged male, morbidly obese, orally intubated, sedated, currently in no distress. 24 HR Interval Summary Free Text/Dictation Patient's condition remains very critical. Still requiring high FiO2 for hypoxemia. General exam; middle-aged male, morbidly obese. Orally intubated. Sedated. Currently in no distress. Exam/Review of Systems Vital Signs Vitals Vital Signs Date Temp Pulse Resp B/P (MAP) Pulse Ox O2 O2 Flow FiO2 Time Delivery Rate 10/20/18 86 08:00 10/20/18 22 128/81 98 Mechanical 06:00 (97) Ventilator 10/20/18 90 04:45 10/20/18 98.4 04:00 10/17/18 4 13:14 Intake and Output 10/19/18 10/19/18 10/20/18 1414:59 22:59 06:59 IntakeIntake Total 345.5 ml 550.210 ml 406.404 ml OutputOutput Total 4000 ml 1900 ml 1125 ml BalanceBalance -3654.5 ml -1349.790 ml -718.596 ml Exam H EENT exam; supple neck, JVD difficult to see because of short neck. Orally intubated. No neck masses. Pupils are small bilaterally. Chest exam; diminished breath sounds throughout. S1-S2 audible, no murmurs. Regular rhythm. Abdomen exam; grossly protuberant. Soft. Bowel sounds audible. Extremity exam; chronic appearing lower extremity skin changes with trace edema. 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 Medications Medications Current Medications IV Flush (NS 3 ml) 3 ml PER PROTOCOL IV ; Start 10/17/18 at 15:30 Hydromorphone HCl (Dilaudid) 0.5 mg Q4H PRN IV SEVERE PAIN LEVEL 7-10 Last administered on 10/19/18 12:53; Admin Dose 0.5 MG; Start 10/17/18 at 15:30 Famotidine (Pepcid Iv) 20 mg Q12 IV Last administered on 10/20/18 08:23; Admin Dose 20 MG; Start 10/17/18 at 21:00 Enoxaparin Sodium (Lovenox) 30 mg DAILY SC Last administered on 10/20/18 08:46; Admin Dose 30 MG; Start 10/18/18 at 09:00 Diagnostic Test (Pha) (Accu-Chek) 1 ea Q1H XX Last administered on 10/20/18 08:47; Admin Dose 1 EA; Start 10/17/18 at 18:00 Insulin Human Regular 100 unit/ Sodium Chloride 100 ml @ 0 mls/hr PER PROTOCOL IV Last administered on 10/20/18 05:55; Admin Dose 0.2 MLS/HR; Start 10/17/18 at 18:00 Miscellaneous Information (* Miscellaneous Pharmacy Order) Treatment of Hypoglycemia: 1.BG 51... Per protocol XX ; Start 10/17/18 at 16:00 Dextrose (D50w Syringe) 25 ml Q15M PRN IV DECREASED GLUCOSE; Start 10/17/18 at 16:00 Levofloxacin/ Dextrose 150 ml @ 100 mls/hr Q24H IVPB Last administered on 10/19/18 18:12; Admin Dose 100 MLS/HR; Start 10/17/18 at 18:00 Propofol 100 ml @ 7.909 mls/ hr Q12H IV Last administered on 10/20/18 08:24; Admin Dose 63.274 MLS/HR; Start 10/17/18 at 20:00; Stop 10/24/18 at 19:59 Albuterol (Ventolin Hfa) 4 puff Q4H RESP THERAPY INH Last administered on 10/20/18 07:37; Admin Dose 4 PUFF; Start 10/18/18 at 13:00 Ipratropium [place] (Atrovent Hfa) 4 puff Q4H RESP THERAPY INH Last administered on 10/20/18 07:38; Admin Dose 4 PUFF; Start 10/18/18 at 13:00 Furosemide (Lasix) 40 mg BID DIURETICS IV Last administered on 10/20/18 05:49; Admin Dose 40 MG; Start 10/19/18 at 10:30 Cefepime HCl 50 ml @ 100 mls/hr Q12 IVPB Last administered on 10/20/18 08:23; Admin Dose 100 MLS/HR; Start 10/19/18 at 11:00 Nystatin (Nystatin Powder) 1 applic BID TOP Last administered on 10/20/18 08:24; Admin Dose 1 APPLIC; Start 10/19/18 at 21:00 ETTA BRANTLEY Oct 20, 2018 09:51
[2018-10-20] MEDS ORDERED: ENOXAPARIN 30 MG/0.3 ML SYG SC SCH (11:10)
[2018-10-20] MEDS ORDERED: LIDOCAINE 1% (MPF) 5 ML VIAL SC ONE (13:30)
[2018-10-20] MEDS: HYDROmorphONE 0.5 MG/0.5 ML SYG IV PRN (15:29)
--- NOTE | 2018-10-20 16:15 | PN ---
Date/Time of Note Date/Time of Note DATE: 10/20/18 TIME: 16:10 Assessment/Plan VTE Prophylaxis Risk score (from Nsg)>0 risk: 7 Pharmacological prophylaxis: LMWH Lines/Catheters IV Catheter Type (from Nrsg): Peripheral IV Assessment/Plan Hospital Course 52 yo male with h/o morbid obesity, DMII who presents with acute hypercapnic and hypoxic respiratory failure 1. Acute hypercapnic and hypoxemic respiratory failure secondary to diastolic CHF and/or pneumonia with underlying OHS and hypercapnia Continue vent support Continue Lasix Continue Levaquin, DC cefepime Pulmonology managing mechanical ventilation Of note echo shows normal EF 2. Diabetes DC insulin drip and start subcu regimen 3. Super morbid obesity Lifestyle changes Prophylaxis: Lovenox Result Diagram: 10/20/18 0510 10/20/18 0510 Results 24hrs Laboratory Tests Test 10/19/18 16:46 10/19/18 18:17 10/19/18 19:56 10/19/18 21:26 Bedside Glucose 104 95 106 108 Test 10/19/18 23:31 10/20/18 01:58 10/20/18 04:12 10/20/18 05:10 Bedside Glucose 112 105 121 White Blood Count 7.5 Red Blood Count 5.06 Hemoglobin 14.2 Hematocrit 45.0 Mean Corpuscular 88.9 Volume Mean Corpuscular 28.1 L Hemoglobin Mean Corpuscular 31.6 L Hemoglobin Concen t Red Cell 16.2 H Distribution Width Platelet Count 234 Mean Platelet 10.3 Volume Immature 0.400 Granulocytes % Neutrophils % 64.5 Lymphocytes % 23.1 Monocytes % 10.7 Eosinophils % 0.9 Basophils % 0.4 Nucleated Red 0.0 Blood Cells % Immature 0.030 Granulocytes # Neutrophils # 4.8 Lymphocytes # 1.7 Monocytes # 0.8 Eosinophils # 0.1 Basophils # 0.0 Nucleated Red 0.0 Blood Cells # Sodium Level 139 Potassium Level 4.4 Chloride Level 95 L Carbon Dioxide 37 H Level Anion Gap 7 Blood Urea 17 Nitrogen Creatinine 0.56 L Est Glomerular > 60 Filtrat Rate mL/min Glucose Level 111 Calcium Level 7.7 L Total Bilirubin 0.5 Direct Bilirubin 0.00 Indirect 0.5 Bilirubin Aspartate Amino 50 H Transf (AST/SGOT) Alanine 32 Aminotransferase (ALT/SGPT) Alkaline 61 Phosphatase Total Protein 5.6 L Albumin 2.5 L Globulin 3.10 Albumin/Globulin 0.80 Ratio Test 10/20/18 05:51 10/20/18 07:00 10/20/18 08:22 10/20/18 09:56 Bedside Glucose 104 109 114 Blood Gas Blood arterial Specimen Source Arterial Blood 10/20/2018 7:15:3 Date Drawn 9 AM Arterial Blood pH 7.405 (Temp corrected) Arterial Blood 66.2 H pCO2 (Temp correct) Arterial Blood 77.4 L pO2 (Temp corrected) Arterial Blood 40.6 *H HCO3 Arterial Blood 12.5 H Base Excess Arterial Blood 94.6 L Oxygen Saturation Danilo Test ACCEPTAB Arterial Blood Right Radial Gas Puncture Site Arterial 0.6 Blood Carboxyhemo globin Arterial Blood 0.3 Methemoglobin Blood Gas A-a O2 496.5 H Differential Oxyhemoglobin 93.7 Percent Blood Gas 37.0 Temperature Blood Gas 22.0 Respiration Rate Blood Gas Actual 22 Respiration Rate Blood Gas VENT - AC Modality FiO2 90.0 Blood Gas Tidal 550.0 Volume Blood Gas Low 10.0 PEEP Setting Blood Gas M.TIM RN Critical Value Read Back Blood Gas TM Notified Whom Blood Gas 10/20/2018 7:25:1 Notified Time 6 AM Test 10/20/18 12:23 10/20/18 14:39 Bedside Glucose 98 107 Subjective 24 Hr Interval Summary Subjective hx not possible: pt non-verbal Exam/Review of Systems Vital Signs Vitals Vital Signs Date Temp Pulse Resp B/P (MAP) Pulse Ox O2 O2 Flow FiO2 Time Delivery Rate 10/20/18 93 22 92 80 15:40 10/20/18 132/84 Mechanical 14:30 (100) Ventilator 10/20/18 98.9 12:00 10/17/18 4 13:14 Intake and Output 10/19/18 10/19/18 10/20/18 1515:00 23:00 07:00 IntakeIntake Total 351.0 ml 592.365 ml 418.949 ml OutputOutput Total 4000 ml 1620 ml 1405 ml BalanceBalance -3649.0 ml -1027.635 ml -986.051 ml Exam Constitutional: non-verbal ENMT: intubated Respiratory: clear to auscultation Cardiovascular: regular rate and rhythm Gastrointestinal: soft; No distended Musculoskeletal: nl extremities to inspection Medications Medications Current Medications IV Flush (NS 3 ml) 3 ml PER PROTOCOL IV ; Start 10/17/18 at 15:30 Hydromorphone HCl (Dilaudid) 0.5 mg Q4H PRN IV SEVERE PAIN LEVEL 7-10 Last administered on 10/20/18at 15:29; Admin Dose 0.5 MG; Start 10/17/18 at 15:30 Famotidine (Pepcid Iv) 20 mg Q12 IV Last administered on 10/20/18 08:23; Admin Dose 20 MG; Start 10/17/18 at 21:00 Diagnostic Test (Pha) (Accu-Chek) 1 ea Q1H XX Last administered on 10/20/18 14:53; Admin Dose 1 EA; Start 10/17/18 at 18:00 Insulin Human Regular 100 unit/ Sodium Chloride 100 ml @ 0 mls/hr PER PROTOCOL IV Last administered on 10/20/18 05:55; Admin Dose 0.2 MLS/HR; Start 10/17/18 at 18:00 Miscellaneous Information (* Miscellaneous Pharmacy Order) Treatment of Hypoglycemia: 1.BG 51... Per protocol XX ; Start 10/17/18 at 16:00 Dextrose (D50w Syringe) 25 ml Q15M PRN IV DECREASED GLUCOSE; Start 10/17/18 at 16:00 Levofloxacin/ Dextrose 150 ml @ 100 mls/hr Q24H IVPB Last administered on 10/19/18at 18:12; Admin Dose 100 MLS/HR; Start 10/17/18 at 18:00 Propofol 100 ml @ 7.909 mls/ hr Q12H IV Last administered on 10/20/18at 15:08; Admin Dose 63.274 MLS/HR; Start 10/17/18 at 20:00; Stop 10/24/18 at 19:59 Furosemide (Lasix) 40 mg BID DIURETICS IV Last administered on 10/20/18 05:49; Admin Dose 40 MG; Start 10/19/18 at 10:30 Nystatin (Nystatin Powder) 1 applic BID TOP Last administered on 10/20/18at 08:24; Admin Dose 1 APPLIC; Start 10/19/18 at 21:00 Enoxaparin Sodium (Lovenox) 60 mg DAILY SC ; Start 10/21/18 at 09:00 Enoxaparin Sodium (Lovenox) 30 mg NOW SC Last administered on 10/20/18at 12:39; Admin Dose 30 MG; Start 10/20/18 at 11:10; Stop 10/20/18 at 19:00 Ipratropium [place] (Atrovent Hfa) 4 puff Q6H RESP THERAPY INH ; Start 10/20/18 at 20:00 Cefepime HCl 50 ml @ 100 mls/hr Q12 IVPB ; Start 10/20/18 at 21:00 Albuterol (Ventolin Hfa) 4 puff Q6H RESP THERAPY INH ; Start 10/20/18 at 20:[address] [place] Oct 20, 2018 16:15
[2018-10-20] MEDS ORDERED: DEXTROSE 50% 50 ML SYRINGE IV PRN ×2 (16:30)
[2018-10-20] MEDS ORDERED: GLUCOSE GEL 15 GRAM TUBE BUCCAL PRN (16:30)
[2018-10-20] MEDS ORDERED: GLUCOSE GEL 15 GRAM TUBE PO PRN ×2 (16:30)
[2018-10-20] MEDS ORDERED: GLUCAGON 1 MG INJ IM PRN (16:30)
[2018-10-20] MEDS: INSULIN ASPART [NOVOLOG] 3 ML PEN SC SCH ×2 (17:00→20:02)
[2018-10-20] MEDS ORDERED: ALBUTEROL HFA 8 GM INHALER INH SCH (18:00)
[2018-10-20] MEDS: LEVOFLOXACIN 750MG/D5W (PMX) 150 ML IVPB SCH (18:07)
[2018-10-20] MEDS: INSULIN GLARGINE [LANTus] (100 UNITS/ML) SYG SC SCH (20:03)
[2018-10-20] MEDS ORDERED: CEFEPIME 2GM/50 ML (PMX) 50 ML IVPB SCH (21:00)
[2018-10-21] VITALS (54 sets, daily range): BP systolic 98–156; BP diastolic 54–96; PULSE 77–87; RESP 9–29
[2018-10-21] MEDS: INSULIN ASPART [NOVOLOG] 3 ML PEN SC SCH ×6 (01:00→20:41)
[2018-10-21] MEDS: PROPOFOL 100 ML IV SCH ×13 (01:26→23:47)
[2018-10-21] MEDS: IPRATROPIUM (HFA) 12.9 GM INHALER INH SCH ×4 (01:27→19:22)
[2018-10-21] MEDS: ALBUTEROL HFA 8 GM INHALER INH SCH ×4 (01:27→19:22)
[2018-10-21] MEDS: ACCU-CHEK XX SCH (02:00)
[2018-10-21] MEDS: FUROSEMIDE 40 MG INJ IV SCH ×2 (04:49→17:08)
[2018-10-21] MEDS ORDERED: POTASSIUM CHLORIDE (SR) 20 MEQ TAB PO STA (08:34)
[2018-10-21] MEDS: ENOXAPARIN 60 MG/0.6 ML SYG SC SCH (08:58)
[2018-10-21] MEDS: FAMOTIDINE 20 MG INJ IV SCH ×2 (09:00→20:42)
[2018-10-21] MEDS ORDERED: POTASSIUM CHLORIDE 20 MEQ POWDER FOR ORAL SOLN PO ONE (09:00)
[2018-10-21] MEDS: NYSTATIN 30 GM POWDER BTL TOP SCH ×2 (09:00→20:57)
--- NOTE | 2018-10-21 09:06 | CONS ---
Date/Time of Note Date/Time of Note DATE: 10/21/18 TIME: 09:04 Assessment/Plan Assessment/Plan Assessment/Plan Ventilator setting; AC of 22, tidal volume 550, PEEP of 10, 85% FiO2. Patient is currently on propofol at 45 mics per kilogram per minute. Assessment and recommendations; 1. Patient with history of morbid obesity and apparent chronic type II respiratory failure admitted for hypercapnic respiratory failure requiring intubation. 2. Superimposed congestive heart failure with possibility of some element of pneumonia. 3. History of diabetes and hypertension. Continue current supportive care. Wean down FiO2 as tolerated. Prognosis is guarded. Patient possibly will require to have a tracheostomy performed. Result Diagram: 10/21/18 0330 10/21/18 0330 Results 24hrs Laboratory Tests Test 10/20/18 09:56 10/20/18 12:23 10/20/18 14:39 10/20/18 18:08 Bedside Glucose 114 98 107 108 Test 10/20/18 20:02 10/21/18 02:05 10/21/18 03:30 10/21/18 04:50 Bedside Glucose 115 107 114 White Blood Count 8.0 Red Blood Count 4.98 Hemoglobin 13.9 L Hematocrit 44.3 Mean Corpuscular 89.0 Volume Mean Corpuscular 27.9 L Hemoglobin Mean Corpuscular 31.4 L Hemoglobin Concent Red Cell 16.2 H Distribution Width Platelet Count 235 Mean Platelet Volume 9.5 Immature 0.400 Granulocytes % Neutrophils % 57.1 Lymphocytes % 27.6 Monocytes % 13.1 H Eosinophils % 1.2 Basophils % 0.6 Nucleated Red Blood 0.0 Cells % Immature 0.030 Granulocytes # Neutrophils # 4.6 Lymphocytes # 2.2 Monocytes # 1.1 H Eosinophils # 0.1 Basophils # 0.1 Nucleated Red Blood 0.0 Cells # Sodium Level 138 Potassium Level 3.3 L Chloride Level 92 L Carbon Dioxide Level 39 H Anion Gap 7 Blood Urea Nitrogen 13 Creatinine 0.63 Est Glomerular > 60 Filtrat Rate mL/min Glucose Level 114 Calcium Level 8.1 L Consultation Date/Type/Reason Admit Date/Time Oct 17, 2018 at 14:17 Initial Consult Date 10/18/18 Type of Consult Pulmonary/critical care Patient is a 52-year-old male who was brought into the hospital because of shortness of breath. Patient was in respiratory failure and required intubation. ABG was done which showed severe hypercapnia. By the time I saw the patient, patient is orally intubated and sedated. History was obtained from medical record as well as from patient's sister who was present in the room. Past medical history; 1. Chronic renal insufficiency. 2. Morbid obesity. Likely underlying sleep apnea syndrome. 3. Diabetes. 4. Hypertension. Medications; reviewed. Patient is currently on insulin drip at 7 units/h, propofol 20 mics per kilogram per minute. Other medications were reviewed as well. Allergies; none. Social history; positive for alcohol abuse and smoking. Family history; he is single, has 3 children. Patient is with his sisters who take care of him. Occupational history; patient is on medical leave. Review of system; unable to be obtained. General exam; middle-aged male, morbidly obese, orally intubated, sedated, currently in no distress. 24 HR Interval Summary Free Text/Dictation Patient's condition remains critical. Still requiring high FiO2 for hypoxemia. Patient however has remained hemodynamically stable. General exam; middle-aged male, morbidly obese, orally intubated and sedated. Currently no distress. Exam/Review of Systems Vital Signs Vitals Vital Signs Date Temp Pulse Resp B/P (MAP) Pulse Ox O2 O2 Flow FiO2 Time Delivery Rate 10/21/18 84 08:00 10/21/18 22 118/70 93 06:30 (86) 10/21/18 85 05:00 10/21/18 99.1 Mechanical 04:00 Ventilator 10/17/18 4 13:14 Intake and Output 10/20/18 10/20/18 10/21/18 1515:00 23:00 07:00 IntakeIntake Total 392.2 ml 786.096 ml 856.370 ml OutputOutput Total 2400 ml 2985 ml 395 ml BalanceBalance -2007.8 ml -2198.904 ml 461.370 ml Exam HEENT exam; supple neck, JVD difficult to see because of short neck. No neck masses. Orally intubated. Patient has fair dentition. Pupils are midsize. Chest exam; diminished breath sounds throughout. S1-S2 audible, no murmurs. Regular rhythm. Abdomen exam; soft, organomegaly difficult to assess. Bowel sounds audible. Extremity exam; trace edema with chronic appearing lower extremity skin changes. AUTO WINDER exam; patient is sedated. Medications Medications Current Medications IV Flush (NS 3 ml) 3 ml PER PROTOCOL IV ; Start 10/17/18 at 15:30 Hydromorphone HCl (Dilaudid) 0.5 mg Q4H PRN IV SEVERE PAIN LEVEL 7-10 Last administered on 10/20/18 15:29; Admin Dose 0.5 MG; Start 10/17/18 at 15:30 Famotidine (Pepcid Iv) 20 mg Q12 IV Last administered on 10/21/18 09:00; Admin Dose 20 MG; Start 10/17/18 at 21:00 Levofloxacin/ Dextrose 150 ml @ 100 mls/hr Q24H IVPB Last administered on 10/20/18 18:07; Admin Dose 100 MLS/HR; Start 10/17/18 at 18:00 Propofol 100 ml @ 7.909 mls/ hr Q12H IV Last administered on 10/21/18 08:55; Admin Dose 71.183 MLS/HR; Start 10/17/18 at 20:00; Stop 10/24/18 at 19:59 Furosemide (Lasix) 40 mg BID DIURETICS IV Last administered on 10/21/18 04:49 ; Admin Dose 40 MG; Start 10/19/18 at 10:30 Nystatin (Nystatin Powder) 1 applic BID TOP Last administered on 10/21/18 09:00; Admin Dose 1 APPLIC; Start 10/19/18 at 21:00 Enoxaparin Sodium (Lovenox) 60 mg DAILY SC Last administered on 10/21/18 08:58; Admin Dose 60 MG; Start 10/21/18 at 09:00 Ipratropium [place] (Atrovent Hfa) 4 puff Q6H RESP THERAPY INH Last administered on 10/21/18 08:14; Admin Dose 4 PUFF; Start 10/20/18 at 20:00 Albuterol (Ventolin Hfa) 4 puff Q6H RESP THERAPY INH Last administered on 10/21/18 08:14; Admin Dose 4 PUFF; Start 10/20/18 at 20:00 Diagnostic Test (Pha) (Accu-Chek) 1 ea 02 XX ; Start 10/21/18 at 02:00 Insulin Glargine (Lantus) 40 units DAILY@2000 SC Last administered on 10/20/18at 20:03; Admin Dose 40 UNITS; Start 10/20/18 at 20:00 Insulin Aspart (Novolog Insulin Pen) NOVOLOG *MILD* ALGORI... Q4 SC ; Start 10/20/18 at 17:00 Miscellaneous Information 1 ea NOTE XX ; Start 10/20/18 at 16:30 Glucose (Glutose) 15 gm Q15M PRN PO DECREASED GLUCOSE; Start 10/20/18 at 16:30 Glucose (Glutose) 22.5 gm Q15M PRN PO DECREASED GLUCOSE; Start 10/20/18 at 16: 30 Dextrose (D50w Syringe) 25 ml Q15M PRN IV DECREASED GLUCOSE; Start 10/20/18 at 16:30 Dextrose (D50w Syringe) 50 ml Q15M PRN IV DECREASED GLUCOSE; Start 10/20/18 at 16:30 Glucagon (Glucagen) 1 mg Q15M PRN IM DECREASED GLUCOSE; Start 10/20/18 at 16:30 Glucose (Glutose) 15 gm Q15M PRN BUCCAL DECREASED GLUCOSE; Start 10/20/18 at 16:30 IV Flush (NS 10 ml) 10 ml PRN PRN IV IV PROTOCOL; Start 10/20/18 at 16:30 ETTA BRANTLEY Oct 21, 2018 09:06
--- NOTE | 2018-10-21 14:41 | PN ---
Date/Time of Note Date/Time of Note DATE: 10/21/18 TIME: 14:32 Assessment/Plan VTE Prophylaxis Risk score (from Ns)>0 risk: 10 Pharmacological prophylaxis: LMWH Assessment/Plan Hospital Course 52 yo male with h/o morbid obesity, DMII who presents with acute hypercapnic and hypoxic respiratory failure 1. Acute hypercapnic and hypoxemic respiratory failure secondary to diastolic CHF and/or pneumonia with underlying OHS and hypercapnia Continue vent support Continue Lasix Continue Levaquin Pulmonology managing mechanical ventilation Of note echo shows normal EF 2. Diabetes Status post insulin drip, continue subcu regimen 3. Super morbid obesity Lifestyle changes Prophylaxis: Lovenox DC planning: Patient now requiring 100% FiO2, spoke to family and they want the patient to remain a full code and are agreeable to tracheostomy if need be Result Diagram: 10/21/18 0330 10/21/18 0330 Results 24hrs Laboratory Tests Test 10/20/18 14:39 10/20/18 18:08 10/20/18 20:02 10/21/18 02:05 Bedside Glucose 107 108 115 107 Test 10/21/18 03:30 10/21/18 04:50 10/21/18 08:53 10/21/18 14:09 White Blood Count 8.0 Red Blood Count 4.98 Hemoglobin 13.9 L Hematocrit 44.3 Mean Corpuscular 89.0 Volume Mean Corpuscular 27.9 L Hemoglobin Mean Corpuscular 31.4 L Hemoglobin Concent Red Cell 16.2 H Distribution Width Platelet Count 235 Mean Platelet Volume 9.5 Immature 0.400 Granulocytes % Neutrophils % 57.1 Lymphocytes % 27.6 Monocytes % 13.1 H Eosinophils % 1.2 Basophils % 0.6 Nucleated Red Blood 0.0 Cells % Immature 0.030 Granulocytes # Neutrophils # 4.6 Lymphocytes # 2.2 Monocytes # 1.1 H Eosinophils # 0.1 Basophils # 0.1 Nucleated Red Blood 0.0 Cells # Sodium Level 138 Potassium Level 3.3 L Chloride Level 92 L Carbon Dioxide Level 39 H Anion Gap 7 Blood Urea Nitrogen 13 Creatinine 0.63 Est Glomerular > 60 Filtrat Rate mL/min Glucose Level 114 Calcium Level 8.1 L Bedside Glucose 114 133 131 Subjective 24 Hr Interval Summary Subjective hx not possible: pt non-verbal Exam/Review of Systems Vital Signs Vitals Vital Signs Date Temp Pulse Resp B/P (MAP) Pulse Ox O2 O2 Flow FiO2 Time Delivery Rate 10/21/18 82 12:00 10/21/18 22 107/74 92 11:30 (85) 10/21/18 Mechanical 11:00 Ventilator 10/21/18 85 08:00 10/21/18 99.3 08:00 10/17/18 4 13:14 Intake and Output 10/20/18 10/20/18 10/21/18 1515:00 23:00 07:00 IntakeIntake Total 392.2 ml 786.096 ml 949.640 ml OutputOutput Total 2400 ml 2985 ml 435 ml BalanceBalance -2007.8 ml -2198.904 ml 514.640 ml Exam Constitutional: non-verbal ENMT: intubated Respiratory: clear to auscultation Cardiovascular: regular rate and rhythm Gastrointestinal: soft; No distended Musculoskeletal: nl extremities to inspection Medications Medications Current Medications IV Flush (NS 3 ml) 3 ml PER PROTOCOL IV ; Start 10/17/18 at 15:30 Hydromorphone HCl (Dilaudid) 0.5 mg Q4H PRN IV SEVERE PAIN LEVEL 7-10 Last administered on 10/20/18at 15:29; Admin Dose 0.5 MG; Start 10/17/18 at 15:30 Famotidine (Pepcid Iv) 20 mg Q12 IV Last administered on 10/21/18at 09:00; Admin Dose 20 MG; Start 10/17/18 at 21:00 Levofloxacin/ Dextrose 150 ml @ 100 mls/hr Q24H IVPB Last administered on 10/20/18at 18:07; Admin Dose 100 MLS/HR; Start 10/17/18 at 18:00 Propofol 100 ml @ 7.909 mls/ hr Q12H IV Last administered on 10/21/18at 13:35; Admin Dose 63.274 MLS/HR; Start 10/17/18 at 20:00; Stop 10/24/18 at 19:59 Furosemide (Lasix) 40 mg BID DIURETICS IV Last administered on 10/21/18at 04:49; Admin Dose 40 MG; Start 10/19/18 at 10:30 Nystatin (Nystatin Powder) 1 applic BID TOP Last administered on 10/21/18at 09:00; Admin Dose 1 APPLIC; Start 10/19/18 at 21:00 Enoxaparin Sodium (Lovenox) 60 mg DAILY SC Last administered on 10/21/18at 08:58; Admin Dose 60 MG; Start 10/21/18 at 09:00 Ipratropium [place] (Atrovent Hfa) 4 puff Q6H RESP THERAPY INH Last administered on 10/21/18at 13:19; Admin Dose 4 PUFF; Start 10/20/18 at 20:00 Albuterol (Ventolin Hfa) 4 puff Q6H RESP THERAPY INH Last administered on 10/21/18at 13:19; Admin Dose 4 PUFF; Start 10/20/18 at 20:00 Diagnostic Test (Pha) (Accu-Chek) 1 ea 02 XX ; Start 10/21/18 at 02:00 Insulin Glargine (Lantus) 40 units DAILY@2000 SC Last administered on 10/20/18at 20:03; Admin Dose 40 UNITS; Start 10/20/18 at 20:00 Insulin Aspart (Novolog Insulin Pen) NOVOLOG *MILD* ALGORI... Q4 SC ; Start 10/20/18 at 17:00 Miscellaneous Information 1 ea NOTE XX ; Start 10/20/18 at 16:30 Glucose (Glutose) 15 gm Q15M PRN PO DECREASED GLUCOSE; Start 10/20/18 at 16:30 Glucose (Glutose) 22.5 gm Q15M PRN PO DECREASED GLUCOSE; Start 10/20/18 at 16:30 Dextrose (D50w Syringe) 25 ml Q15M PRN IV DECREASED GLUCOSE; Start 10/20/18 at 16:30 Dextrose (D50w Syringe) 50 ml Q15M PRN IV DECREASED GLUCOSE; Start 10/20/18 at 16:30 Glucagon (Glucagen) 1 mg Q15M PRN IM DECREASED GLUCOSE; Start 10/20/18 at 16:30 Glucose (Glutose) 15 gm Q15M PRN BUCCAL DECREASED GLUCOSE; Start 10/20/18 at 16:30 IV Flush (NS 10 ml) 10 ml PRN PRN IV IV PROTOCOL; Start 10/20/18 at 16:30 [address] E[place] Oct 21, 2018 14:41
[2018-10-21] MEDS: LEVOFLOXACIN 750MG/D5W (PMX) 150 ML IVPB SCH (18:32)
[2018-10-21] MEDS: INSULIN GLARGINE [LANTus] (100 UNITS/ML) SYG SC SCH (20:48)
[2018-10-22] VITALS (56 sets, daily range): BP systolic 90–128; BP diastolic 56–82; PULSE 76–90; RESP 16–28
[2018-10-22] MEDS ORDERED: LORAZEPAM 4 MG/ML VIAL IV ONE
[2018-10-22] MEDS: INSULIN ASPART [NOVOLOG] 3 ML PEN SC SCH ×6 (00:59→21:00)
[2018-10-22] MEDS: PROPOFOL 100 ML IV SCH ×5 (01:27→10:48)
[2018-10-22] MEDS: ALBUTEROL HFA 8 GM INHALER INH SCH ×4 (01:56→19:47)
[2018-10-22] MEDS: IPRATROPIUM (HFA) 12.9 GM INHALER INH SCH ×4 (01:56→19:47)
[2018-10-22] MEDS: ACCU-CHEK XX SCH (02:15)
[2018-10-22] MEDS: MIDAZOLAM (DRIP) 50 mg/50 mL 50 ML IV SCH ×2 (03:24→11:15)
[2018-10-22] MEDS: FUROSEMIDE 40 MG INJ IV SCH ×2 (05:13→17:48)
[2018-10-22] MEDS ORDERED: POTASSIUM CHLORIDE 100 ML IVPB ONE (06:30)
[2018-10-22] MEDS ORDERED: MAGNESIUM SULFATE 4 GM/100 ML 100 ML IVPB ONE (07:30)
[2018-10-22] MEDS: NYSTATIN 30 GM POWDER BTL TOP SCH ×2 (08:40→20:54)
[2018-10-22] MEDS: FAMOTIDINE 20 MG INJ IV SCH ×2 (08:40→20:53)
[2018-10-22] MEDS: ENOXAPARIN 60 MG/0.6 ML SYG SC SCH (08:52)
--- NOTE | 2018-10-22 09:37 | CONS ---
Date/Time of Note Date/Time of Note DATE: 10/22/18 TIME: 09:34 Assessment/Plan Assessment/Plan Assessment/Plan Chest x-ray was reviewed from today which is again showing pulmonary vascular congestion with cardiomegaly. Ventilator setting; AC of 22, tidal volume 550, PEEP of 10, 100% FiO2. Patient is currently on propofol 25 mics per kilogram per minute, Versed 5 mg/h. Assessment and recommendations; 1. Patient with history of morbid obesity admitted for severe hypercapnic and hypoxemic respiratory failure compounded by underlying congestive heart failure. 2. Persistent hypoxemia and hypercapnia, requiring 100% FiO2. 3. History of diabetes. 4. Difficult to rule out some element of pneumonia. 5. Likely underlying sleep apnea. H cefepime 1 g every 12 hours. Continue other supportive measures. Obtain fo llow-up chest x-ray 24 hours. Patient likely will need to have a tracheostomy once FiO2 has been weaned down to an acceptable level. Prognosis is guarded. 35 minutes of critical care time was spent evaluating patient. Result Diagram: 10/22/18 0500 10/22/18 0500 Results 24hrs Laboratory Tests Test 10/21/18 14:09 10/21/18 17:24 10/21/18 20:39 10/22/18 00:59 Bedside Glucose 131 131 123 123 Test 10/22/18 01:13 10/22/18 05:00 10/22/18 05:13 10/22/18 07:00 Urine Color NEELA Urine Clarity SLIGHTLY CLOUDY A Urine pH 5.0 Urine Specific 1.031 H [place] Urine Ketones NEGATIVE Urine Nitrite NEGATIVE Urine Bilirubin NEGATIVE Urine 2+ H Urobilinogen Urine Leukocyte NEGATIVE Esterase Urine > 182 H Microscopic RBC Urine 9 H Microscopic WBC Urine Hemoglobin 1+ H Urine Glucose NEGATIVE Urine Total 1+ H Protein White Blood 9.1 Count Red Blood Count 5.02 Hemoglobin 13.9 L Hematocrit 44.8 Mean Corpuscular 89.2 Volume Mean Corpuscular 27.7 L Hemoglobin Mean Corpuscular 31.0 L Hemoglobin Danni nt Red Cell 16.4 H Distribution Width Platelet Count 230 Mean Platelet 9.4 Volume Immature 0.600 H Granulocytes % Neutrophils % 57.9 Lymphocytes % 24.5 Monocytes % 14.5 H Eosinophils % 2.1 Basophils % 0.4 Nucleated Red 0.0 Blood Cells % Immature 0.050 H Granulocytes # Neutrophils # 5.3 Lymphocytes # 2.2 Monocytes # 1.3 H Eosinophils # 0.2 Basophils # 0.0 Nucleated Red 0.0 Blood Cells # Sodium Level 141 Potassium Level 3.3 L Chloride Level 90 L Carbon Dioxide 40 H Level Anion Gap 11 Blood Urea 12 Nitrogen Creatinine 0.55 L Est Glomerular > 60 Filtrat Rate mL/min Glucose Level 127 Calcium Level 8.0 L Phosphorus Level 4.0 Magnesium Level 1.2 L Bedside Glucose 121 Blood Gas Blood arterial Specimen Source Arterial Blood 10/22/2018 8:30: Date Drawn 48 AM Arterial Blood 7.448 pH (Temp corrected) Arterial Blood 61.3 H pCO2 (Temp correct) Arterial Blood 64.4 L pO2 (Temp corrected) Arterial Blood 41.5 *H HCO3 Arterial Blood 14.3 H Base Excess Arterial Blood 91.8 L Oxygen Saturatio n Danilo Test ACCEPTAB Arterial Blood Right Radial Gas Puncture Site Arterial 1.0 Blood Carboxyhem oglobin Arterial Blood 0.3 Methemoglobin Blood Gas A-a O2 587.3 H Differential Oxyhemoglobin 90.6 L Percent Blood Gas 37.0 Temperature Blood Gas 22.0 Respiration Rate Blood Gas Actual 22 Respiration Rate Blood Gas VENT - AC Modality FiO2 100.0 Blood Gas Tidal 550.0 Volume Blood Gas Low 10.0 PEEP Setting Blood Gas Lashae MARTIN RN Critical Value Read Back Blood Gas Mahsa KOHLER Notified Whom Blood Gas 10/22/2018 8:52: Notified Time 55 AM Test 10/22/18 08:42 Bedside Glucose 129 Consultation Date/Type/Reason Admit Date/Time Oct 17, 2018 at 14:17 Initial Consult Date 10/18/18 Type of Consult Pulmonary/critical care Patient is a 52-year-old male who was brought into the hospital because of shortness of breath. Patient was in respiratory failure and required intubation. ABG was done which showed severe hypercapnia. By the time I saw the patient, patient is orally intubated and sedated. History was obtained from medical record as well as from patient's sister who was present in the room. Past medical history; 1. Chronic renal insufficiency. 2. Morbid obesity. Likely underlying sleep apnea syndrome. 3. Diabetes. 4. Hypertension. Medications; reviewed. Patient is currently on insulin drip at 7 units/h, propofol 20 mics per kilogram per minute. Other medications were reviewed as well. Allergies; none. Social history; positive for alcohol abuse and smoking. Family history; he is single, has 3 children. Patient is with his sisters who take care of him. Occupational history; patient is on medical leave. Review of system; unable to be obtained. General exam; middle-aged male, morbidly obese, orally intubated, sedated, currently in no distress. 24 HR Interval Summary Free Text/Dictation Patient's condition remains critical. Requiring 100% FiO2 for O2 saturation. General exam; Middle-aged male, morbidly obese, sedated, orally intubated. Currently in no distress. Exam/Review of Systems Vital Signs Vitals Vital Signs Date Temp Pulse Resp B/P (MAP) Pulse Ox O2 O2 Flow FiO2 Time Delivery Rate 10/22/18 80 22 105/70 92 08:30 (82) 10/22/18 99.7 Mechanical 08:00 Ventilator 10/22/18 100 05:30 Intake and Output 10/21/18 10/21/18 10/22/18 1515:00 23:00 07:00 IntakeIntake Total 910.82 ml 885.010 ml 1079.095 ml OutputOutput Total 405 ml 1690 ml 1130 ml BalanceBalance 505.82 ml -804.990 ml -50.905 ml Exam HEENT exam; supple neck, JVD difficult to see because of short neck. Patient has fair dentition. Orally intubated. No neck masses. Pupils are small bilaterally. Chest exam; diminished breath sounds throughout. S1-S2 audible, no murmurs. Regular rhythm. Abdomen exam; soft, grossly protuberant. Bowel sounds audible. Organomegaly difficult to assess. Extremity exam; trace edema with chronic appearing lower extremity skin changes bilaterally. POWER DISTRIBUTION ENGINEER exam; patient is sedated. Medications Medications Current Medications IV Flush (NS 3 ml) 3 ml PER PROTOCOL IV ; Start 10/17/18 at 15:30 Hydromorphone HCl (Dilaudid) 0.5 mg Q4H PRN IV SEVERE PAIN LEVEL 7-10 Last administered on 10/20/18at 15:29; Admin Dose 0.5 MG; Start 10/17/18 at 15:30 Famotidine (Pepcid Iv) 20 mg Q12 IV Last administered on 10/22/18at 08:40; Admin Dose 20 MG; Start 10/17/18 at 21:00 Levofloxacin/ Dextrose 150 ml @ 100 mls/hr Q24H IVPB Last administered on 10/21/18at 18:32; Admin Dose 100 MLS/HR; Start 10/17/18 at 18:00 Propofol 100 ml @ 7.909 mls/ hr Q12H IV Last administered on 10/22/18at 07:51; Admin Dose 39.546 MLS/HR; Start 10/17/18 at 20:00; Stop 10/24/18 at 19:59 Furosemide (Lasix) 40 mg BID DIURETICS IV Last administered on 10/22/18at 05:13; Admin Dose 40 MG; Start 10/19/18 at 10:30 Nystatin (Nystatin Powder) 1 applic BID TOP Last administered on 10/22/18at 08:40; Admin Dose 1 APPLIC; Start 10/19/18 at 21:00 Enoxaparin Sodium (Lovenox) 60 mg DAILY SC Last administered on 10/22/18at 08:52; Admin Dose 60 MG; Start 10/21/18 at 09:00 Ipratropium [place] (Atrovent Hfa) 4 puff Q6H RESP THERAPY INH Last administered on 10/22/18at 01:56; Admin Dose 4 PUFF; Start 10/20/18 at 20:00 Albuterol (Ventolin Hfa) 4 puff Q6H RESP THERAPY INH Last administered on 10/22/18at 01:56; Admin Dose 4 PUFF; Start 10/20/18 at 20:00 Diagnostic Test (Pha) (Accu-Chek) 1 ea 02 XX Last administered on 10/22/18at 02 :15; Admin Dose 1 EA; Start 10/21/18 at 02:00 Insulin Glargine (Lantus) 40 units DAILY@2000 SC Last administered on 10/21/18at 20:48; Admin Dose 40 UNITS; Start 10/20/18 at 20:00 Insulin Aspart (Novolog Insulin Pen) NOVOLOG *MILD* ALGORI... Q4 SC ; Start 10/20/18 at 17:00 Miscellaneous Information 1 ea NOTE XX ; Start 10/20/18 at 16:30 Glucose (Glutose) 15 gm Q15M PRN PO DECREASED GLUCOSE; Start 10/20/18 at 16:30 Glucose (Glutose) 22.5 gm Q15M PRN PO DECREASED GLUCOSE; Start 10/20/18 at 16:30 Dextrose (D50w Syringe) 25 ml Q15M PRN IV DECREASED GLUCOSE; Start 10/20/18 at 16:30 Dextrose (D50w Syringe) 50 ml Q15M PRN IV DECREASED GLUCOSE; Start 10/20/18 at 16:30 Glucagon (Glucagen) 1 mg Q15M PRN IM DECREASED GLUCOSE; Start 10/20/18 at 16:30 Glucose (Glutose) 15 gm Q15M PRN BUCCAL DECREASED GLUCOSE; Start 10/20/18 at 16:30 IV Flush (NS 10 ml) 10 ml PRN PRN IV IV PROTOCOL; Start 10/20/18 at 16:30 Midazolam HCl 50 ml @ 1 mls/hr TITRATE IV Last administered on 10/22/18at 03:24; Admin Dose 2 MLS/HR; Start 10/22/18 at 02:30 Magnesium Sulfate 100 ml @ 25 mls/hr ONCE ONCE IVPB Last administered on 10/22/18at 07:50; Admin Dose 25 MLS/HR; Start 10/22/18 at 07:30; Stop 10/22/18 at 11:29 ETTA BRANTLEY Oct 22, 2018 09:37
[2018-10-22] MEDS: FENTAnyl 1,000 MCG in SOD CHLORIDE 0.9% 80 ML IV SCH (11:30)
[2018-10-22] MEDS: CEFEPIME 2GM/50 ML (PMX) 50 ML IVPB SCH ×2 (12:45→21:06)
--- NOTE | 2018-10-22 14:08 | PN ---
Date/Time of Note Date/Time of Note DATE: 10/22/18 TIME: 14:08 Assessment/Plan VTE Prophylaxis Risk score (from Ns)>0 risk: 10 Pharmacological prophylaxis: LMWH Assessment/Plan Hospital Course 52 yo male with h/o morbid obesity, DMII who presents with acute hypercapnic and hypoxic respiratory failure 1. Acute hypercapnic and hypoxemic respiratory failure secondary to diastolic CHF and/or pneumonia with underlying OHS and hypercapnia Continue vent support Continue Lasix Continue Levaquin Pulmonology managing mechanical ventilation Of note echo shows normal EF 2. Diabetes Status post insulin drip, continue subcu regimen 3. Super morbid obesity Lifestyle changes Prophylaxis: Lovenox DC planning: Patient now requiring elevated FiO2, spoke to family and they want the patient to remain a full code and are agreeable to tracheostomy if need be Result Diagram: 10/22/18 0500 10/22/18 0500 Results 24hrs Laboratory Tests Test 10/21/18 14:09 10/21/18 17:24 10/21/18 20:39 10/22/18 00:59 Bedside Glucose 131 131 123 123 Test 10/22/18 01:13 10/22/18 05:00 10/22/18 05:13 10/22/18 07:00 Urine Color NEELA Urine Clarity SLIGHTLY CLOUDY A Urine pH 5.0 Urine Specific 1.031 H [place] Urine Ketones NEGATIVE Urine Nitrite NEGATIVE Urine Bilirubin NEGATIVE Urine 2+ H Urobilinogen Urine Leukocyte NEGATIVE Esterase Urine > 182 H Microscopic RBC Urine 9 H Microscopic WBC Urine Hemoglobin 1+ H Urine Glucose NEGATIVE Urine Total 1+ H Protein White Blood 9.1 Count Red Blood Count 5.02 Hemoglobin 13.9 L Hematocrit 44.8 Mean Corpuscular 89.2 Volume Mean Corpuscular 27.7 L Hemoglobin Mean Corpuscular 31.0 L Hemoglobin Danni nt Red Cell 16.4 H Distribution Width Platelet Count 230 Mean Platelet 9.4 Volume Immature 0.600 H Granulocytes % Neutrophils % 57.9 Lymphocytes % 24.5 Monocytes % 14.5 H Eosinophils % 2.1 Basophils % 0.4 Nucleated Red 0.0 Blood Cells % Immature 0.050 H Granulocytes # Neutrophils # 5.3 Lymphocytes # 2.2 Monocytes # 1.3 H Eosinophils # 0.2 Basophils # 0.0 Nucleated Red 0.0 Blood Cells # Sodium Level 141 Potassium Level 3.3 L Chloride Level 90 L Carbon Dioxide 40 H Level Anion Gap 11 Blood Urea 12 Nitrogen Creatinine 0.55 L Est Glomerular > 60 Filtrat Rate mL/min Glucose Level 127 Calcium Level 8.0 L Phosphorus Level 4.0 Magnesium Level 1.2 L Bedside Glucose 121 Blood Gas Blood arterial Specimen Source Arterial Blood 10/22/2018 8:30: Date Drawn 48 AM Arterial Blood 7.448 pH (Temp corrected) Arterial Blood 61.3 H pCO2 (Temp correct) Arterial Blood 64.4 L pO2 (Temp corrected) Arterial Blood 41.5 *H HCO3 Arterial Blood 14.3 H Base Excess Arterial Blood 91.8 L Oxygen Saturatio n Danilo Test ACCEPTAB Arterial Blood Right Radial Gas Puncture Site Arterial 1.0 Blood Carboxyhem oglobin Arterial Blood 0.3 Methemoglobin Blood Gas A-a O2 587.3 H Differential Oxyhemoglobin 90.6 L Percent Blood Gas 37.0 Temperature Blood Gas 22.0 Respiration Rate Blood Gas Actual 22 Respiration Rate Blood Gas VENT - AC Modality FiO2 100.0 Blood Gas Tidal 550.0 Volume Blood Gas Low 10.0 PEEP Setting Blood Gas Lashae MARTIN RN Critical Value Read Back Blood Gas Mahsa KOHLER Notified Whom Blood Gas 10/22/2018 8:52: Notified Time 55 AM Test 10/22/18 08:42 Bedside Glucose 129 Subjective 24 Hr Interval Summary Subjective hx not possible: pt non-verbal Exam/Review of Systems Vital Signs Vitals Vital Signs Date Temp Pulse Resp B/P (MAP) Pulse Ox O2 O2 Flow FiO2 Time Delivery Rate 10/22/18 79 22 117/75 91 Mechanical 10:00 (89) Ventilator 10/22/18 100 08:00 10/22/18 99.7 08:00 Intake and Output 10/21/18 10/21/18 10/22/18 1515:00 23:00 07:00 IntakeIntake Total 910.82 ml 885.010 ml 1079.095 ml OutputOutput Total 405 ml 1690 ml 1130 ml BalanceBalance 505.82 ml -804.990 ml -50.905 ml Exam Constitutional: non-verbal ENMT: intubated Respiratory: clear to auscultation Cardiovascular: regular rate and rhythm Gastrointestinal: soft; No distended Musculoskeletal: nl extremities to inspection Medications Medications Current Medications IV Flush (NS 3 ml) 3 ml PER PROTOCOL IV ; Start 10/17/18 at 15:30 Hydromorphone HCl (Dilaudid) 0.5 mg Q4H PRN IV SEVERE PAIN LEVEL 7-10 Last administered on 10/20/18 15:29; Admin Dose 0.5 MG; Start 10/17/18 at 15:30 Famotidine (Pepcid Iv) 20 mg Q12 IV Last administered on 10/22/18 08:40; Admin Dose 20 MG; Start 10/17/18 at 21:00 Levofloxacin/ Dextrose 150 ml @ 100 mls/hr Q24H IVPB Last administered on 10/21/18 18:32; Admin Dose 100 MLS/HR; Start 10/17/18 at 18:00 Propofol 100 ml @ 7.909 mls/ hr Q12H IV Last administered on 10/22/18 10:48; Admin Dose 31.637 MLS/HR; Start 10/17/18 at 20:00; Stop 10/24/18 at 19:59 Furosemide (Lasix) 40 mg BID DIURETICS IV Last administered on 10/22/18 05:13; Admin Dose 40 MG; Start 10/19/18 at 10:30 Nystatin (Nystatin Powder) 1 applic BID TOP Last administered on 10/22/18 08:40; Admin Dose 1 APPLIC; Start 10/19/18 at 21:00 Enoxaparin Sodium (Lovenox) 60 mg DAILY SC Last administered on 10/22/18 08:52; Admin Dose 60 MG; Start 10/21/18 at 09:00 Ipratropium [place] (Atrovent Hfa) 4 puff Q6H RESP THERAPY INH Last administered on 10/22/18 13:57; Admin Dose 4 PUFF; Start 10/20/18 at 20:00 Albuterol (Ventolin Hfa) 4 puff Q6H RESP THERAPY INH Last administered on 10/22/18 13:57; Admin Dose 4 PUFF; Start 10/20/18 at 20:00 Diagnostic Test (Pha) (Accu-Chek) 1 ea 02 XX Last administered on 10/22/18 02:15; Admin Dose 1 EA; Start 10/21/18 at 02:00 Insulin Glargine (Lantus) 40 units DAILY@2000 SC Last administered on 10/21/18 20:48; Admin Dose 40 UNITS; Start 10/20/18 at 20:00 Insulin Aspart (Novolog Insulin Pen) NOVOLOG *MILD* ALGORI... Q4 SC ; Start 10/20/18 at 17:00 Miscellaneous Information 1 ea NOTE XX ; Start 10/20/18 at 16:30 Glucose (Glutose) 15 gm Q15M PRN PO DECREASED GLUCOSE; Start 10/20/18 at 16:30 Glucose (Glutose) 22.5 gm Q15M PRN PO DECREASED GLUCOSE; Start 10/20/18 at 16:30 Dextrose (D50w Syringe) 25 ml Q15M PRN IV DECREASED GLUCOSE; Start 10/20/18 at 16:30 Dextrose (D50w Syringe) 50 ml Q15M PRN IV DECREASED GLUCOSE; Start 10/20/18 at 16:30 Glucagon (Glucagen) 1 mg Q15M PRN IM DECREASED GLUCOSE; Start 10/20/18 at 16:30 Glucose (Glutose) 15 gm Q15M PRN BUCCAL DECREASED GLUCOSE; Start 10/20/18 at 16:30 IV Flush (NS 10 ml) 10 ml PRN PRN IV IV PROTOCOL; Start 10/20/18 at 16:30 Midazolam HCl 50 ml @ 1 mls/hr TITRATE IV Last administered on 10/22/18at 11:15; Admin Dose 5 MLS/HR; Start 10/22/18 at 02:30 Cefepime HCl 50 ml @ 100 mls/hr Q12 IVPB Last administered on 10/22/18at 12:45; Admin Dose 100 MLS/HR; Start 10/22/18 at 11:00 Fentanyl 1000 mcg/ Sodium Chloride 100 ml @ 2.5 mls/hr TITRATE IV Last administered on 10/22/18at 11:30; Admin Dose 2.5 MLS/HR; Start 10/22/18 at 11:[address] [place] Oct 22, 2018 14:08
[2018-10-22] MEDS: LEVOFLOXACIN 750MG/D5W (PMX) 150 ML IVPB SCH (18:31)
[2018-10-22] MEDS: DOCUSATE SODIUM 10 MG/ML (10ML CUP) GTB SCH ×2 (20:53→21:00)
[2018-10-22] MEDS: INSULIN GLARGINE [LANTus] (100 UNITS/ML) SYG SC SCH (21:02)
[2018-10-23] VITALS (44 sets, daily range): BP systolic 97–124; BP diastolic 51–74; PULSE 84–102; RESP 12–32
[2018-10-23] MEDS: INSULIN ASPART [NOVOLOG] 3 ML PEN SC SCH ×6 (00:47→20:47)
[2018-10-23] MEDS: ALBUTEROL HFA 8 GM INHALER INH SCH ×4 (01:28→19:54)
[2018-10-23] MEDS: IPRATROPIUM (HFA) 12.9 GM INHALER INH SCH ×4 (01:28→19:54)
[2018-10-23] MEDS: ACCU-CHEK XX SCH (01:46)
[2018-10-23] MEDS: FENTAnyl 1,000 MCG in SOD CHLORIDE 0.9% 80 ML IV SCH ×2 (03:44→16:39)
[2018-10-23] MEDS: FUROSEMIDE 40 MG INJ IV SCH ×2 (05:11→18:04)
[2018-10-23] MEDS: MIDAZOLAM (DRIP) 50 mg/50 mL 50 ML IV SCH ×2 (05:18→16:25)
[2018-10-23] MEDS ORDERED: MAGNESIUM SULFATE 1 GM/D5W 100 ML IVPB ONE (08:00)
--- NOTE | 2018-10-23 08:16 | CONS ---
Date/Time of Note Date/Time of Note DATE: 10/23/18 TIME: 08:14 Assessment/Plan Assessment/Plan Assessment/Plan Chest x-ray showing bilateral pulmonary edema with patchy alveolar infiltrates. Ventilator setting; AC of 22, tidal volume 550, PEEP of 10, 100% FiO2. Patient is currently on fentanyl drip 75 mics per hour, Versed 5 mg/h. Assessment and recommendations; 1. Patient with history of morbid obesity and chronic type II respiratory failure admitted for severe acute decompensation with marked hypercapnic resp iratory failure. 2. Superimposed CHF. 3. Possibly some element of pneumonia as well. 4. History of diabetes. Continue current supportive care. Patient will need to have a tracheostomy performed. However currently the patient is too unstable for the procedure. Prognosis is guarded. Result Diagram: 10/23/18 0430 10/23/18 0437 Results 24hrs Laboratory Tests Test 10/22/18 08:42 10/22/18 14:29 10/22/18 16:45 10/22/18 20:59 Bedside Glucose 129 151 153 121 Test 10/23/18 00:46 10/23/18 04:21 10/23/18 04:30 10/23/18 04:37 Bedside Glucose 114 129 White Blood Count 10.4 Red Blood Count 4.93 Hemoglobin 13.6 L Hematocrit 44.5 Mean Corpuscular 90.3 Volume Mean Corpuscular 27.6 L Hemoglobin Mean Corpuscular 30.6 L Hemoglobin Concent Red Cell 16.6 H Distribution Width Platelet Count 236 Mean Platelet Volume 10.3 Immature 0.900 H Granulocytes % Neutrophils % 63.6 Lymphocytes % 17.1 Monocytes % 14.7 H Eosinophils % 3.2 Basophils % 0.5 Nucleated Red Blood 0.0 Cells % Immature 0.090 H Granulocytes # Neutrophils # 6.6 Lymphocytes # 1.8 Monocytes # 1.5 H Eosinophils # 0.3 Basophils # 0.1 Nucleated Red Blood 0.0 Cells # Sodium Level 139 Potassium Level 3.3 L Chloride Level 91 L Carbon Dioxide Level 40 H Anion Gap 8 Blood Urea Nitrogen 14 Creatinine 0.62 Est Glomerular > 60 Filtrat Rate mL/min Glucose Level 120 Calcium Level 8.1 L Magnesium Level 1.7 Consultation Date/Type/Reason Admit Date/Time Oct 17, 2018 at 14:17 Initial Consult Date 10/18/18 Type of Consult Pulmonary/critical care Patient is a 52-year-old male who was brought into the hospital because of shortness of breath. Patient was in respiratory failure and required intubation. ABG was done which showed severe hypercapnia. By the time I saw the patient, patient is orally intubated and sedated. History was obtained from medical record as well as from patient's sister who was present in the room. Past medical history; 1. Chronic renal insufficiency. 2. Morbid obesity. Likely underlying sleep apnea syndrome. 3. Diabetes. 4. Hypertension. Medications; reviewed. Patient is currently on insulin drip at 7 units/h, propofol 20 mics per kilogram per minute. Other medications were reviewed as well. Allergies; none. Social history; positive for alcohol abuse and smoking. Family history; he is single, has 3 children. Patient is with his sisters who take care of him. Occupational history; patient is on medical leave. Review of system; unable to be obtained. General exam; middle-aged male, morbidly obese, orally intubated, sedated, currently in no distress. 24 HR Interval Summary Free Text/Dictation Patient's condition remains critical. Still requiring 100% FiO2. Patient however has remained hemodynamically stable. General exam; middle-aged male, morbidly obese, orally intubated, sedated, cur rently in no distress. Exam/Review of Systems Vital Signs Vitals Vital Signs Date Temp Pulse Resp B/P (MAP) Pulse Ox O2 O2 Flow FiO2 Time Delivery Rate 10/23/18 86 23 111/60 91 06:30 (77) 10/23/18 Mechanical 06:00 Ventilator 10/23/18 100 05:33 10/23/18 99.8 04:00 Intake and Output 10/22/18 10/22/18 10/23/18 1515:00 23:00 07:00 IntakeIntake Total 1011.75 ml 307.5 ml 80.5 ml OutputOutput Total 360 ml 950 ml 740 ml BalanceBalance 651.75 ml -642.5 ml -659.5 ml Exam HEENT exam; supple neck, JVD difficult to see because of shortening. Orally intubated. Patient has fair dentition. No neck masses. Pupils are small bilaterally. Chest exam; diminished breath sounds throughout. S1-S2 audible, no murmurs. Regular rhythm. Abdomen exam; soft, protuberant. Bowel sounds audible. Organomegaly difficult to assess. Extremity exam; chronic appearing lower extremity skin changes with trace edema. PATTERN MAKER exam; patient is sedated. Medications Medications Current Medications IV Flush (NS 3 ml) 3 ml PER PROTOCOL IV ; Start 10/17/18 at 15:30 Hydromorphone HCl (Dilaudid) 0.5 mg Q4H PRN IV SEVERE PAIN LEVEL 7-10 Last administered on 10/20/18 15:29; Admin Dose 0.5 MG; Start 10/17/18 at 15:30 Famotidine (Pepcid Iv) 20 mg Q12 IV Last administered on 10/22/18 20:53; Admin Dose 20 MG; Start 10/17/18 at 21:00 Levofloxacin/ Dextrose 150 ml @ 100 mls/hr Q24H IVPB Last administered on 10/22/18 18:31; Admin Dose 100 MLS/HR; Start 10/17/18 at 18:00 Propofol 100 ml @ 7.909 mls/ hr Q12H IV Last administered on 10/22/18 10:48; Admin Dose 31.637 MLS/HR; Start 10/17/18 at 20:00; Stop 10/24/18 at 19:59 Furosemide (Lasix) 40 mg BID DIURETICS IV Last administered on 10/23/18 05:11; Admin Dose 40 MG; Start 10/19/18 at 10:30 Nystatin (Nystatin Powder) 1 applic BID TOP Last administered on 10/22/18 20:54; Admin Dose 1 APPLIC; Start 10/19/18 at 21:00 Enoxaparin Sodium (Lovenox) 60 mg DAILY SC Last administered on 10/22/18 08:52; Admin Dose 60 MG; Start 10/21/18 at 09:00 Ipratropium [place] (Atrovent Hfa) 4 puff Q6H RESP THERAPY INH Last administered on 10/23/18 01:28; Admin Dose 4 PUFF; Start 10/20/18 at 20:00 Albuterol (Ventolin Hfa) 4 puff Q6H RESP THERAPY INH Last administered on 10/23/18 01:28; Admin Dose 4 PUFF; Start 10/20/18 at 20:00 Diagnostic Test (Pha) (Accu-Chek) 1 ea 02 XX Last administered on 10/23/18at 01:46; Admin Dose 1 EA; Start 10/21/18 at 02:00 Insulin Glargine (Lantus) 40 units DAILY@2000 SC Last administered on 10/22/18at 21:02; Admin Dose 40 UNITS; Start 10/20/18 at 20:00 Insulin Aspart (Novolog Insulin Pen) NOVOLOG *MILD* ALGORI... Q4 SC Last administered on 10/22/18at 16:47; Admin Dose 1 UNIT; Start 10/20/18 at 17:00 Miscellaneous Information 1 ea NOTE XX ; Start 10/20/18 at 16:30 Glucose (Glutose) 15 gm Q15M PRN PO DECREASED GLUCOSE; Start 10/20/18 at 16:30 Glucose (Glutose) 22.5 gm Q15M PRN PO DECREASED GLUCOSE; Start 10/20/18 at 16:30 Dextrose (D50w Syringe) 25 ml Q15M PRN IV DECREASED GLUCOSE; Start 10/20/18 at 16:30 Dextrose (D50w Syringe) 50 ml Q15M PRN IV DECREASED GLUCOSE; Start 10/20/18 at 16:30 Glucagon (Glucagen) 1 mg Q15M PRN IM DECREASED GLUCOSE; Start 10/20/18 at 16:30 Glucose (Glutose) 15 gm Q15M PRN BUCCAL DECREASED GLUCOSE; Start 10/20/18 at 16:30 IV Flush (NS 10 ml) 10 ml PRN PRN IV IV PROTOCOL; Start 10/20/18 at 16:30 Midazolam HCl 50 ml @ 1 mls/hr TITRATE IV Last administered on 10/23/18at 05:18; Admin Dose 5 MLS/HR; Start 10/22/18 at 02:30 Cefepime HCl 50 ml @ 100 mls/hr Q12 IVPB Last administered on 10/22/18at 21:06; Admin Dose 100 MLS/HR; Start 10/22/18 at 11:00 Fentanyl 1000 mcg/ Sodium Chloride 100 ml @ 2.5 mls/hr TITRATE IV Last administered on 10/23/18at 03:44; Admin Dose 7.5 MLS/HR; Start 10/22/18 at 11:30 Docusate Sodium (Colace Liquid Cup) 100 mg BID GTB ; Start 10/22/18 at 21:00 Magnesium Sulfate/ Dextrose 100 ml @ 100 mls/hr ONCE ONCE IVPB ; Start 10/23/18 at 08:00; Stop 10/23/18 at 08:59 Potassium Chloride (Potassium Chloride Pwd/Soln) 40 meq ONCE ONCE NGT ; Start 10/23/18 at 08:30; Stop 10/23/18 at 08:31 ETTA BRANTLEY Oct 23, 2018 08:16
[2018-10-23] MEDS ORDERED: POTASSIUM CHLORIDE 20 MEQ POWDER FOR ORAL SOLN NGT ONE (08:30)
[2018-10-23] MEDS: DOCUSATE SODIUM 10 MG/ML (10ML CUP) GTB SCH ×2 (08:50→20:52)
[2018-10-23] MEDS: FAMOTIDINE 20 MG INJ IV SCH ×2 (08:50→20:52)
[2018-10-23] MEDS: NYSTATIN 30 GM POWDER BTL TOP SCH ×2 (08:51→20:53)
[2018-10-23] MEDS: ENOXAPARIN 60 MG/0.6 ML SYG SC SCH (09:10)
[2018-10-23] MEDS: CEFEPIME 2GM/50 ML (PMX) 50 ML IVPB SCH ×2 (09:28→20:52)
--- NOTE | 2018-10-23 14:48 | PN ---
Date/Time of Note Date/Time of Note DATE: 10/23/18 TIME: 14:47 Assessment/Plan VTE Prophylaxis Risk score (from Nsg)>0 risk: 7 Pharmacological prophylaxis: LMWH Assessment/Plan Hospital Course 52 yo male with h/o morbid obesity, DMII who presents with acute hypercapnic and hypoxic respiratory failure 1. Acute hypercapnic and hypoxemic respiratory failure secondary to diastolic CHF and/or pneumonia with underlying OHS and hypercapnia Continue vent support Continue Lasix Continue Levaquin Pulmonology managing mechanical ventilation Of note echo shows normal EF 2. Diabetes Status post insulin drip, continue subcu regimen 3. Super morbid obesity Lifestyle changes Prophylaxis: Lovenox DC planning: Patient now requiring elevated FiO2, spoke to family and they want the patient to remain a full code and are agreeable to tracheostomy if need be Result Diagram: 10/23/18 0430 10/23/18 0437 Results 24hrs Laboratory Tests Test 10/22/18 16:45 10/22/18 20:59 10/23/18 00:46 10/23/18 04:21 Bedside Glucose 153 121 114 129 Test 10/23/18 04:30 10/23/18 04:37 10/23/18 07:00 10/23/18 08:13 White Blood Count 10.4 Red Blood Count 4.93 Hemoglobin 13.6 L Hematocrit 44.5 Mean Corpuscular 90.3 Volume Mean Corpuscular 27.6 L Hemoglobin Mean Corpuscular 30.6 L Hemoglobin Concen t Red Cell 16.6 H Distribution Width Platelet Count 236 Mean Platelet 10.3 Volume Immature 0.900 H Granulocytes % Neutrophils % 63.6 Lymphocytes % 17.1 Monocytes % 14.7 H Eosinophils % 3.2 Basophils % 0.5 Nucleated Red 0.0 Blood Cells % Immature 0.090 H Granulocytes # Neutrophils # 6.6 Lymphocytes # 1.8 Monocytes # 1.5 H Eosinophils # 0.3 Basophils # 0.1 Nucleated Red 0.0 Blood Cells # Sodium Level 139 Potassium Level 3.3 L Chloride Level 91 L Carbon Dioxide 40 H Level Anion Gap 8 Blood Urea 14 Nitrogen Creatinine 0.62 Est Glomerular > 60 Filtrat Rate mL/min Glucose Level 120 Calcium Level 8.1 L Magnesium Level 1.7 Blood Gas Blood arterial Specimen Source Arterial Blood 10/23/2018 8:25:0 Date Drawn 1 AM Arterial Blood pH 7.418 (Temp corrected) Arterial Blood 70.6 H pCO2 (Temp correct) Arterial Blood 59.8 L pO2 (Temp corrected) Arterial Blood 44.6 *H HCO3 Arterial Blood 16.1 H Base Excess Arterial Blood 89.4 L Oxygen Saturation Danilo Test ACCEPTAB Arterial Blood Right Radial Gas Puncture Site Arterial 1.0 Blood Carboxyhemo globin Arterial Blood 0.2 Methemoglobin Blood Gas A-a O2 582.6 H Differential Oxyhemoglobin 88.3 L Percent Blood Gas 37.0 Temperature Blood Gas 22.0 Respiration Rate Blood Gas Actual 23 Respiration Rate Blood Gas VENT - AC Modality FiO2 100.0 Blood Gas Tidal 550.0 Volume Blood Gas Low 10.0 PEEP Setting Blood Gas DIOMEDES CAMEJO Critical Value Read Back Blood Gas TM Notified Whom Blood Gas 10/23/2018 8:32:4 Notified Time 5 AM Bedside Glucose 104 Subjective 24 Hr Interval Summary Subjective hx not possible: pt non-verbal Exam/Review of Systems Vital Signs Vitals Vital Signs Date Temp Pulse Resp B/P (MAP) Pulse Ox O2 O2 Flow FiO2 Time Delivery Rate 10/23/18 92 12:00 10/23/18 25 89 100 11:30 10/23/18 114/66 [place] 09:00 (82) l Ventilato r 10/23/18 100.0 08:00 Intake and Output 10/22/18 10/22/18 10/23/18 1515:00 23:00 07:00 IntakeIntake Total 1011.75 ml 307.5 ml 80.5 ml OutputOutput Total 360 ml 950 ml 740 ml BalanceBalance 651.75 ml -642.5 ml -659.5 ml Exam Constitutional: non-verbal Respiratory: clear to auscultation Cardiovascular: regular rate and rhythm Gastrointestinal: soft; No distended Musculoskeletal: nl extremities to inspection Medications Medications Current Medications IV Flush (NS 3 ml) 3 ml PER PROTOCOL IV ; Start 10/17/18 at 15:30 Hydromorphone HCl (Dilaudid) 0.5 mg Q4H PRN IV SEVERE PAIN LEVEL 7-10 Last administered on 10/20/18at 15:29; Admin Dose 0.5 MG; Start 10/17/18 at 15:30 Famotidine (Pepcid Iv) 20 mg Q12 IV Last administered on 10/23/18at 08:50; Admin Dose 20 MG; Start 10/17/18 at 21:00 Levofloxacin/ Dextrose 150 ml @ 100 mls/hr Q24H IVPB Last administered on 10/22/18at 18:31; Admin Dose 100 MLS/HR; Start 10/17/18 at 18:00 Propofol 100 ml @ 7.909 mls/ hr Q12H IV Last administered on 10/22/18at 10:48; Admin Dose 31.637 MLS/HR; Start 10/17/18 at 20:00; Stop 10/24/18 at 19:59 Furosemide (Lasix) 40 mg BID DIURETICS IV Last administered on 10/23/18at 05:11 ; Admin Dose 40 MG; Start 10/19/18 at 10:30 Nystatin (Nystatin Powder) 1 applic BID TOP Last administered on 10/23/18at 08:51; Admin Dose 1 APPLIC; Start 10/19/18 at 21:00 Enoxaparin Sodium (Lovenox) 60 mg DAILY SC Last administered on 10/23/18at 09:10; Admin Dose 60 MG; Start 10/21/18 at 09:00 Ipratropium [place] (Atrovent Hfa) 4 puff Q6H RESP THERAPY INH Last administered on 10/23/18 08:44; Admin Dose 4 PUFF; Start 10/20/18 at 20:00 Albuterol (Ventolin Hfa) 4 puff Q6H RESP THERAPY INH Last administered on 10/23/18at 08:44; Admin Dose 4 PUFF; Start 10/20/18 at 20:00 Diagnostic Test (Pha) (Accu-Chek) 1 ea 02 XX Last administered on 10/23/18at 01:46; Admin Dose 1 EA; Start 10/21/18 at 02:00 Insulin Glargine (Lantus) 40 units DAILY@2000 SC Last administered on 10/22/18at 21:02; Admin Dose 40 UNITS; Start 10/20/18 at 20:00 Insulin Aspart (Novolog Insulin Pen) NOVOLOG *MILD* ALGORI... Q4 SC Last administered on 10/22/18at 16:47; Admin Dose 1 UNIT; Start 10/20/18 at 17:00 Miscellaneous Information 1 ea NOTE XX ; Start 10/20/18 at 16:30 Glucose (Glutose) 15 gm Q15M PRN PO DECREASED GLUCOSE; Start 10/20/18 at 16:30 Glucose (Glutose) 22.5 gm Q15M PRN PO DECREASED GLUCOSE; Start 10/20/18 at 16:30 Dextrose (D50w Syringe) 25 ml Q15M PRN IV DECREASED GLUCOSE; Start 10/20/18 at 16:30 Dextrose (D50w Syringe) 50 ml Q15M PRN IV DECREASED GLUCOSE; Start 10/20/18 at 16:30 Glucagon (Glucagen) 1 mg Q15M PRN IM DECREASED GLUCOSE; Start 10/20/18 at 16:30 Glucose (Glutose) 15 gm Q15M PRN BUCCAL DECREASED GLUCOSE; Start 10/20/18 at 16:30 IV Flush (NS 10 ml) 10 ml PRN PRN IV IV PROTOCOL; Start 10/20/18 at 16:30 Midazolam HCl 50 ml @ 1 mls/hr TITRATE IV Last administered on 10/23/18at 05:18; Admin Dose 5 MLS/HR; Start 10/22/18 at 02:30 Cefepime HCl 50 ml @ 100 mls/hr Q12 IVPB Last administered on 10/23/18at 09:28; Admin Dose 100 MLS/HR; Start 10/22/18 at 11:00 Fentanyl 1000 mcg/ Sodium Chloride 100 ml @ 2.5 mls/hr TITRATE IV Last administered on 10/23/18at 03:44; Admin Dose 7.5 MLS/HR; Start 10/22/18 at 11:30 Docusate Sodium (Colace Liquid Cup) 100 mg BID GTB Last administered on 10/23/18at 08:50; Admin Dose 100 MG; Start 10/22/18 at 21:[address] [place] Oct 23, 2018 14:48
[2018-10-23] MEDS: LEVOFLOXACIN 750MG/D5W (PMX) 150 ML IVPB SCH (18:04)
[2018-10-23] MEDS: PROPOFOL 100 ML IV SCH (20:00)
[2018-10-23] MEDS ORDERED: VANCOMYCIN IV PER PHARMACY XX SCH (20:30)
[2018-10-23] MEDS: INSULIN GLARGINE [LANTus] (100 UNITS/ML) SYG SC SCH (20:54)
[2018-10-23] MEDS: ACETAMINOPHEN 325 MG TAB PO PRN (20:59)
[2018-10-23] MEDS: VANCOMYCIN HCL 2 GM in SOD CHLORIDE 0.9% 500 ML IVPB SCH (23:25)
[2018-10-24] VITALS (36 sets, daily range): BP systolic 108–130; BP diastolic 61–81; PULSE 91–104; RESP 13–26
[2018-10-24] MEDS: INSULIN ASPART [NOVOLOG] 3 ML PEN SC SCH ×6 (01:08→20:37)
[2018-10-24] MEDS: IPRATROPIUM (HFA) 12.9 GM INHALER INH SCH ×4 (01:18→19:32)
[2018-10-24] MEDS: ALBUTEROL HFA 8 GM INHALER INH SCH ×4 (01:18→19:32)
[2018-10-24] MEDS: ACCU-CHEK XX SCH (02:06)
[2018-10-24] MEDS: MIDAZOLAM (DRIP) 50 mg/50 mL 50 ML IV SCH ×3 (03:18→23:55)
[2018-10-24] MEDS: FUROSEMIDE 40 MG INJ IV SCH ×2 (06:39→17:59)
[2018-10-24] MEDS: FENTAnyl 1,000 MCG in SOD CHLORIDE 0.9% 80 ML IV SCH ×2 (06:40→20:40)
[2018-10-24] MEDS: PROPOFOL 100 ML IV SCH (08:00)
[2018-10-24] MEDS: CEFEPIME 2GM/50 ML (PMX) 50 ML IVPB SCH ×2 (08:29→20:35)
[2018-10-24] MEDS: VANCOMYCIN HCL 2 GM in SOD CHLORIDE 0.9% 500 ML IVPB SCH ×3 (08:32→22:49)
[2018-10-24] MEDS: FAMOTIDINE 20 MG INJ IV SCH ×2 (08:33→20:35)
[2018-10-24] MEDS: DOCUSATE SODIUM 10 MG/ML (10ML CUP) GTB SCH ×2 (08:33→20:35)
[2018-10-24] MEDS: NYSTATIN 30 GM POWDER BTL TOP SCH ×2 (08:33→20:36)
[2018-10-24] MEDS: ENOXAPARIN 60 MG/0.6 ML SYG SC SCH (08:45)
--- NOTE | 2018-10-24 09:48 | CONS ---
Date/Time of Note Date/Time of Note DATE: 10/24/18 TIME: 09:47 Assessment/Plan Assessment/Plan Assessment/Plan Ventilator setting; AC of 22, tidal volume 550, PEEP of 10, 100% FiO2. Patient is currently on fentanyl drip 75 mics per hour, Versed 5 mg/h. Assessment and recommendations; 1. Patient with history of morbid obesity admitted for hypoxemic and hypercapnic respiratory failure due to combination of CHF as well as possibly superimposed pneumonia. Still requiring 100% FiO2. 2. History of diabetes. Continue current supportive care. Obtain follow-up chest x-ray and ABG. Prognosis is poor. Once FiO2 is down to an acceptable level patient likely will need to have a tracheostomy performed. Result Diagram: 10/24/18 0430 10/24/18 0430 Results 24hrs Laboratory Tests Test 10/23/18 14:59 10/23/18 18:02 10/23/18 20:41 10/24/18 01:05 Bedside Glucose 109 130 130 153 Test 10/24/18 04:30 10/24/18 05:25 10/24/18 08:35 White Blood Count 10.7 Red Blood Count 4.78 Hemoglobin 13.1 L Hematocrit 43.3 Mean Corpuscular 90.6 Volume Mean Corpuscular 27.4 L Hemoglobin Mean Corpuscular 30.3 L Hemoglobin Concent Red Cell 16.7 H Distribution Width Platelet Count 231 Mean Platelet Volume 10.1 Immature 0.700 H Granulocytes % Neutrophils % 61.2 Lymphocytes % 18.4 Monocytes % 14.9 H Eosinophils % 4.0 Basophils % 0.8 Nucleated Red Blood 0.0 Cells % Immature 0.080 H Granulocytes # Neutrophils # 6.6 Lymphocytes # 2.0 Monocytes # 1.6 H Eosinophils # 0.4 Basophils # 0.1 Nucleated Red Blood 0.0 Cells # Sodium Level 139 Potassium Level 3.7 Chloride Level 91 L Carbon Dioxide Level 40 H Anion Gap 8 Blood Urea Nitrogen 20 Creatinine 0.66 Est Glomerular > 60 Filtrat Rate mL/min Glucose Level 152 Calcium Level 8.3 L Bedside Glucose 136 151 Consultation Date/Type/Reason Admit Date/Time Oct 17, 2018 at 14:17 Initial Consult Date 10/18/18 Type of Consult Pulmonary/critical care Patient is a 52-year-old male who was brought into the hospital because of shortness of breath. Patient was in respiratory failure and required intubation. ABG was done which showed severe hypercapnia. By the time I saw the patient, patient is orally intubated and sedated. History was obtained from medical record as well as from patient's sister who was present in the room. Past medical history; 1. Chronic renal insufficiency. 2. Morbid obesity. Likely underlying sleep apnea syndrome. 3. Diabetes. 4. Hypertension. Medications; reviewed. Patient is currently on insulin drip at 7 units/h, propofol 20 mics per kilogram per minute. Other medications were reviewed as well. Allergies; none. Social history; positive for alcohol abuse and smoking. Family history; he is single, has 3 children. Patient is with his sisters who take care of him. Occupational history; patient is on medical leave. Review of system; unable to be obtained. General exam; middle-aged male, morbidly obese, orally intubated, sedated, currently in no distress. 24 HR Interval Summary Free Text/Dictation Patient's condition remains critical. Still requiring 100% FiO2. Patient however has remained hemodynamically stable. General exam; middle-aged male, morbidly obese, orally intubated and sedated. Currently in no distress. Exam/Review of Systems Vital Signs Vitals Vital Signs Date Temp Pulse Resp B/P (MAP) Pulse Ox O2 O2 Flow FiO2 Time Delivery Rate 10/24/18 95 20 118/61 90 Mechanical 09:00 (80) Ventilator 10/24/18 99.5 08:00 10/24/18 100 05:34 Intake and Output 10/23/18 10/23/18 10/24/18 1414:59 22:59 06:59 IntakeIntake Total 500.0 ml 1005.0 ml 1478.0 ml OutputOutput Total 400 ml 790 ml 390 ml BalanceBalance 100.0 ml 215.0 ml 1088.0 ml Exam H EENT exam; supple neck, JVD difficult to see because of short neck. Patient has fair dentition. Orally intubated. No neck masses. Pupils are small bilaterally. Chest exam; diminished breath sounds throughout. S1-S2 audible, no murmurs. Regular rhythm. Abdomen exam; soft, grossly protuberant. Organomegaly difficult to assess. Bowel sounds audible. Extremity exam; trace edema lower extremities with chronic skin changes in lower extremities bilaterally. SANITARY INSPECTOR exam; patient is sedated. Medications Medications Current Medications IV Flush (NS 3 ml) 3 ml PER PROTOCOL IV ; Start 10/17/18 at 15:30 Hydromorphone HCl (Dilaudid) 0.5 mg Q4H PRN IV SEVERE PAIN LEVEL 7-10 Last administered on 10/20/18 15:29; Admin Dose 0.5 MG; Start 10/17/18 at 15:30 Famotidine (Pepcid Iv) 20 mg Q12 IV Last administered on 10/24/18 08:33; Admin Dose 20 MG; Start 10/17/18 at 21:00 Propofol 100 ml @ 7.909 mls/ hr Q12H IV Last administered on 10/22/18 10:48; Admin Dose 31.637 MLS/HR; Start 10/17/18 at 20:00; Stop 10/24/18 at 19:59 Furosemide (Lasix) 40 mg BID DIURETICS IV Last administered on 10/24/18 06:39; Admin Dose 40 MG; Start 10/19/18 at 10:30 Nystatin (Nystatin Powder) 1 applic BID TOP Last administered on 10/24/18 08:33; Admin Dose 1 APPLIC; Start 10/19/18 at 21:00 Enoxaparin Sodium (Lovenox) 60 mg DAILY SC Last administered on 10/24/18 08:45; Admin Dose 60 MG; Start 10/21/18 at 09:00 Ipratropium [place] (Atrovent Hfa) 4 puff Q6H RESP THERAPY INH Last administered on 10/24/18 08:56; Admin Dose 4 PUFF; Start 10/20/18 at 20:00 Albuterol (Ventolin Hfa) 4 puff Q6H RESP THERAPY INH Last administered on 10/24/18 08:56; Admin Dose 4 PUFF; Start 10/20/18 at 20:00 Diagnostic Test (Pha) (Accu-Chek) 1 ea 02 XX Last administered on 10/24/18 02:06; Admin Dose 1 EA; Start 10/21/18 at 02:00 Insulin Glargine (Lantus) 40 units DAILY@2000 SC Last administered on 10/23/18 20:54; Admin Dose 40 UNITS; Start 10/20/18 at 20:00 Insulin Aspart (Novolog Insulin Pen) NOVOLOG *MILD* ALGORI... Q4 SC Last administered on 10/24/18at 08:46; Admin Dose 1 UNIT; Start 10/20/18 at 17:00 Miscellaneous Information 1 ea NOTE XX ; Start 10/20/18 at 16:30 Glucose (Glutose) 15 gm Q15M PRN PO DECREASED GLUCOSE; Start 10/20/18 at 16:30 Glucose (Glutose) 22.5 gm Q15M PRN PO DECREASED GLUCOSE; Start 10/20/18 at 16:30 Dextrose (D50w Syringe) 25 ml Q15M PRN IV DECREASED GLUCOSE; Start 10/20/18 at 16:30 Dextrose (D50w Syringe) 50 ml Q15M PRN IV DECREASED GLUCOSE; Start 10/20/18 at 16:30 Glucagon (Glucagen) 1 mg Q15M PRN IM DECREASED GLUCOSE; Start 10/20/18 at 16:30 Glucose (Glutose) 15 gm Q15M PRN BUCCAL DECREASED GLUCOSE; Start 10/20/18 at 16:30 IV Flush (NS 10 ml) 10 ml PRN PRN IV IV PROTOCOL; Start 10/20/18 at 16:30 Midazolam HCl 50 ml @ 1 mls/hr TITRATE IV Last administered on 10/24/18at 03:18; Admin Dose 5 MLS/HR; Start 10/22/18 at 02:30 Cefepime HCl 50 ml @ 100 mls/hr Q12 IVPB Last administered on 10/24/18at 08:29; Admin Dose 100 MLS/HR; Start 10/22/18 at 11:00 Fentanyl 1000 mcg/ Sodium Chloride 100 ml @ 2.5 mls/hr TITRATE IV Last administered on 10/24/18at 06:40; Admin Dose 7.5 MLS/HR; Start 10/22/18 at 11:30 Docusate Sodium (Colace Liquid Cup) 100 mg BID GTB Last administered on 10/24/18at 08:33; Admin Dose 100 MG; Start 10/22/18 at 21:00 Vancomycin HCl (Vanco Iv Per Pharmacy) VANCOMYCIN PER PHARMACY PER PROTOCOL XX ; Start 10/23/18 at 20:30 Acetaminophen (Tylenol Tab) 650 mg Q6H PRN PO MILD PAIN(1-3)OR ELEVATED TEMP Last administered on 10/23/18at 20:59; Admin Dose 650 MG; Start 10/23/18 at 20:30 Vancomycin HCl 2 gm/Sodium Chloride 500 ml @ 125 mls/hr Q8H IVPB Last administered on 10/24/18at 08:32; Admin Dose 125 MLS/HR; Start 10/23/18 at 23:00 ETTA BRANTLEY Oct 24, 2018 09:48
[2018-10-24] MEDS ORDERED: LIDOCAINE 1% (MDV) 20 ML INJ SC STA (12:32)
--- NOTE | 2018-10-24 17:37 | PN ---
Date/Time of Note Date/Time of Note DATE: 10/24/18 TIME: 17:36 Assessment/Plan VTE Prophylaxis Risk score (from Ns)>0 risk: 12 Pharmacological prophylaxis: LMWH Assessment/Plan Hospital Course 52 yo male with h/o morbid obesity, DMII who presents with acute hypercapnic and hypoxic respiratory failure 1. Acute hypercapnic and hypoxemic respiratory failure secondary to diastolic CHF and/or pneumonia with underlying OHS and hypercapnia Continue vent support Continue Lasix Continue Levaquin Pulmonology managing mechanical ventilation Of note echo shows normal EF 2. Diabetes Status post insulin drip, continue subcu regimen 3. Super morbid obesity Lifestyle changes Prophylaxis: Lovenox DC planning: Patient now requiring elevated FiO2, spoke to family and they want the patient to remain a full code and are agreeable to tracheostomy if need be Result Diagram: 10/24/18 0430 10/24/18 0430 Results 24hrs Laboratory Tests Test 10/23/18 18:02 10/23/18 20:41 10/24/18 01:05 10/24/18 04:30 Bedside Glucose 130 130 153 White Blood Count 10.7 Red Blood Count 4.78 Hemoglobin 13.1 L Hematocrit 43.3 Mean Corpuscular 90.6 Volume Mean Corpuscular 27.4 L Hemoglobin Mean Corpuscular 30.3 L Hemoglobin Concent Red Cell 16.7 H Distribution Width Platelet Count 231 Mean Platelet Volume 10.1 Immature 0.700 H Granulocytes % Neutrophils % 61.2 Lymphocytes % 18.4 Monocytes % 14.9 H Eosinophils % 4.0 Basophils % 0.8 Nucleated Red Blood 0.0 Cells % Immature 0.080 H Granulocytes # Neutrophils # 6.6 Lymphocytes # 2.0 Monocytes # 1.6 H Eosinophils # 0.4 Basophils # 0.1 Nucleated Red Blood 0.0 Cells # Sodium Level 139 Potassium Level 3.7 Chloride Level 91 L Carbon Dioxide Level 40 H Anion Gap 8 Blood Urea Nitrogen 20 Creatinine 0.66 Est Glomerular > 60 Filtrat Rate mL/min Glucose Level 152 Calcium Level 8.3 L Test 10/24/18 05:25 10/24/18 08:35 10/24/18 13:53 10/24/18 17:17 Bedside Glucose 136 151 144 129 Subjective 24 Hr Interval Summary Subjective hx not possible: pt non-verbal Exam/Review of Systems Vital Signs Vitals Vital Signs Date Temp Pulse Resp B/P (MAP) Pulse Ox O2 O2 Flow FiO2 Time Delivery Rate 10/24/18 99 16:00 10/24/18 16 110/68 90 Mechanical 14:00 (82) Ventilator 10/24/18 100 13:40 10/24/18 98.5 12:00 Intake and Output 10/23/18 10/23/18 10/24/18 1515:00 23:00 07:00 IntakeIntake Total 560.0 ml 1030.0 ml 1478.0 ml OutputOutput Total 450 ml 780 ml 475 ml BalanceBalance 110.0 ml 250.0 ml 1003.0 ml Exam Constitutional: non-verbal ENMT: intubated Respiratory: clear to auscultation Cardiovascular: regular rate and rhythm Gastrointestinal: soft; No distended Musculoskeletal: nl extremities to inspection Medications Medications Current Medications IV Flush (NS 3 ml) 3 ml PER PROTOCOL IV ; Start 10/17/18 at 15:30 Hydromorphone HCl (Dilaudid) 0.5 mg Q4H PRN IV SEVERE PAIN LEVEL 7-10 Last administered on 10/20/18at 15:29; Admin Dose 0.5 MG; Start 10/17/18 at 15:30 Famotidine (Pepcid Iv) 20 mg Q12 IV Last administered on 10/24/18at 08:33; Admin Dose 20 MG; Start 10/17/18 at 21:00 Propofol 100 ml @ 7.909 mls/ hr Q12H IV Last administered on 10/22/18at 10:48; Admin Dose 31.637 MLS/HR; Start 10/17/18 at 20:00; Stop 10/24/18 at 19:59 Furosemide (Lasix) 40 mg BID DIURETICS IV Last administered on 10/24/18at 06:39; Admin Dose 40 MG; Start 10/19/18 at 10:30 Nystatin (Nystatin Powder) 1 applic BID TOP Last administered on 10/24/18at 08:33; Admin Dose 1 APPLIC; Start 10/19/18 at 21:00 Enoxaparin Sodium (Lovenox) 60 mg DAILY SC Last administered on 10/24/18at 08:45; Admin Dose 60 MG; Start 10/21/18 at 09:00 Ipratropium [place] (Atrovent Hfa) 4 puff Q6H RESP THERAPY INH Last administered on 10/24/18at 14:28; Admin Dose 4 PUFF; Start 10/20/18 at 20:00 Albuterol (Ventolin Hfa) 4 puff Q6H RESP THERAPY INH Last administered on 10/24/18at 14:28; Admin Dose 4 PUFF; Start 10/20/18 at 20:00 Diagnostic Test (Pha) (Accu-Chek) 1 ea 02 XX Last administered on 10/24/18at 02:06; Admin Dose 1 EA; Start 10/21/18 at 02:00 Insulin Glargine (Lantus) 40 units DAILY@2000 SC Last administered on 10/23/18at 20:54; Admin Dose 40 UNITS; Start 10/20/18 at 20:00 Insulin Aspart (Novolog Insulin Pen) NOVOLOG *MILD* ALGORI... Q4 SC Last administered on 10/24/18at 13:57; Admin Dose 1 UNIT; Start 10/20/18 at 17:00 Miscellaneous Information 1 ea NOTE XX ; Start 10/20/18 at 16:30 Glucose (Glutose) 15 gm Q15M PRN PO DECREASED GLUCOSE; Start 10/20/18 at 16:30 Glucose (Glutose) 22.5 gm Q15M PRN PO DECREASED GLUCOSE; Start 10/20/18 at 16:30 Dextrose (D50w Syringe) 25 ml Q15M PRN IV DECREASED GLUCOSE; Start 10/20/18 at 16:30 Dextrose (D50w Syringe) 50 ml Q15M PRN IV DECREASED GLUCOSE; Start 10/20/18 at 16:30 Glucagon (Glucagen) 1 mg Q15M PRN IM DECREASED GLUCOSE; Start 10/20/18 at 16:30 Glucose (Glutose) 15 gm Q15M PRN BUCCAL DECREASED GLUCOSE; Start 10/20/18 at 16:30 IV Flush (NS 10 ml) 10 ml PRN PRN IV IV PROTOCOL; Start 10/20/18 at 16:30 Midazolam HCl 50 ml @ 1 mls/hr TITRATE IV Last administered on 10/24/18at 13:55; Admin Dose 5 MLS/HR; Start 10/22/18 at 02:30 Cefepime HCl 50 ml @ 100 mls/hr Q12 IVPB Last administered on 10/24/18at 08:29; Admin Dose 100 MLS/HR; Start 10/22/18 at 11:00 Fentanyl 1000 mcg/ Sodium Chloride 100 ml @ 2.5 mls/hr TITRATE IV Last adm inistered on 10/24/18at 06:40; Admin Dose 7.5 MLS/HR; Start 10/22/18 at 11:30 Docusate Sodium (Colace Liquid Cup) 100 mg BID GTB Last administered on 10/24/18at 08:33; Admin Dose 100 MG; Start 10/22/18 at 21:00 Vancomycin HCl (Vanco Iv Per Pharmacy) VANCOMYCIN PER PHARMACY PER PROTOCOL XX ; Start 10/23/18 at 20:30 Acetaminophen (Tylenol Tab) 650 mg Q6H PRN PO MILD PAIN(1-3)OR ELEVATED TEMP Last administered on 10/23/18at 20:59; Admin Dose 650 MG; Start 10/23/18 at 20:30 Vancomycin HCl 2 gm/Sodium Chloride 500 ml @ 125 mls/hr Q8H IVPB Last administered on 10/24/18at 15:46; Admin Dose 125 MLS/HR; Start 10/23/18 at 23:00 Miscellaneous Information (*Rx Drug Level Order Reminder*) VANCO TROUGH @ 0,600 ONCE ONCE XX ; Start 10/25/18 at 06:00; Stop 10/25/18 at 06:[address] [place] Oct 24, 2018 17:37
[2018-10-24] MEDS: INSULIN GLARGINE [LANTus] (100 UNITS/ML) SYG SC SCH (20:37)
[2018-10-25] VITALS (47 sets, daily range): BP systolic 102–132; BP diastolic 59–85; PULSE 79–140; RESP 0–28
[2018-10-25] MEDS: INSULIN ASPART [NOVOLOG] 3 ML PEN SC SCH ×6 (01:00→20:19)
[2018-10-25] MEDS: ALBUTEROL HFA 8 GM INHALER INH SCH ×4 (02:48→19:51)
[2018-10-25] MEDS: IPRATROPIUM (HFA) 12.9 GM INHALER INH SCH ×4 (02:48→19:51)
[2018-10-25] MEDS: ACCU-CHEK XX SCH (02:51)
[2018-10-25] MEDS: FUROSEMIDE 40 MG INJ IV SCH ×2 (06:32→17:17)
[2018-10-25] MEDS: MIDAZOLAM (DRIP) 50 mg/50 mL 50 ML IV SCH ×2 (06:33→16:19)
[2018-10-25] MEDS: ACETAMINOPHEN 325 MG TAB PO PRN (06:33)
[2018-10-25] MEDS: DOCUSATE SODIUM 10 MG/ML (10ML CUP) GTB SCH ×2 (08:12→20:15)
[2018-10-25] MEDS: FAMOTIDINE 20 MG INJ IV SCH ×2 (08:12→20:15)
[2018-10-25] MEDS: FENTAnyl 1,000 MCG in SOD CHLORIDE 0.9% 80 ML IV SCH ×2 (08:14→17:20)
[2018-10-25] MEDS: ENOXAPARIN 60 MG/0.6 ML SYG SC SCH (08:14)
[2018-10-25] MEDS: CEFEPIME 2GM/50 ML (PMX) 50 ML IVPB SCH ×2 (08:52→20:15)
[2018-10-25] MEDS: NYSTATIN 30 GM POWDER BTL TOP SCH ×2 (08:55→20:19)
--- NOTE | 2018-10-25 11:14 | CONS ---
Date/Time of Note Date/Time of Note DATE: 10/25/18 TIME: 11:02 Consult Date/Type/Reason Admit Date/Time Oct 17, 2018 at 14:17 Initial Consult Date 10/18/18 Type of Consultation: Pulm/CCM Subjective On 100% FiO2 and PAC with high peak pressures. Sedated on the vent. Objective Vital Signs Date Temp Pulse Resp B/P (MAP) Pulse Ox O2 O2 Flow FiO2 Time Delivery Rate 10/25/18 101 08:00 10/25/18 100.3 07:30 10/25/18 28 129/85 91 [place] 06:00 (100) l Ventilato r 10/25/18 100 05:25 Intake and Output 10/24/18 10/24/18 10/25/18 1414:59 22:59 06:59 IntakeIntake Total 1247.0 ml 1205.0 ml 1483.5 ml OutputOutput Total 780 ml 745 ml 415 ml BalanceBalance 467.0 ml 460.0 ml 1068.5 ml Exam HEENT: Neck supple; no JVD; no LAD; + Et tube CVS: RRR, S1 and S2 CHEST: Distant ABD: Obese, NT, + BS EXT: No c/c: + edema NEURO: Sedated on the vent Results/Medications Result Diagram: 10/25/1842710/25/18427 Results 24 hrs Laboratory Tests Test 10/24/18 13:53 10/24/18 17:17 10/24/18 17:58 10/24/18 20:15 Bedside Glucose 144 129 125 143 Test 10/25/18 01:26 10/25/18 02:30 10/25/18 04:06 10/25/18 04:28 Bedside Glucose 129 179 Blood Gas Blood arterial Specimen Source Arterial Blood 10/25/2018 2:30:2 Date Drawn 7 AM Arterial Blood pH 7.391 (Temp corrected) Arterial Blood 74.6 H pCO2 (Temp correct) Arterial Blood 70.4 L pO2 (Temp corrected) Arterial Blood 44.2 *H HCO3 Arterial Blood 15.4 H Base Excess Arterial Blood 93.3 L Oxygen Saturation Danilo Test ACCEPTAB Arterial Blood Right Radial Gas Puncture Site Arterial 0.8 Blood Carboxyhemo globin Arterial Blood 0.4 Methemoglobin Blood Gas A-a O2 568.0 H Differential Oxyhemoglobin 92.2 L Percent Blood Gas 37.0 Temperature Blood Gas 28.0 Respiration Rate Blood Gas Actual 28 Respiration Rate Blood Gas VENT - PC Modality FiO2 100.0 Blood Gas 1 Inspiratory Time Blood Gas Low 10.0 PEEP Setting Blood Gas 45.0 Inspiratory Pressure Blood Gas A IZABEL CAMEJO Critical Value Read Back Blood Gas UP Notified Whom Blood Gas 10/25/2018 2:42:0 Notified Time 2 AM White Blood Count 10.7 Red Blood Count 4.68 L Hemoglobin 12.7 L Hematocrit 42.4 Mean Corpuscular 90.6 Volume Mean Corpuscular 27.1 L Hemoglobin Mean Corpuscular 30.0 L Hemoglobin Concen t Red Cell 17.0 H Distribution Width Platelet Count 266 Mean Platelet 10.5 H Volume Immature 0.800 H Granulocytes % Neutrophils % 62.7 Lymphocytes % 17.8 Monocytes % 13.3 H Eosinophils % 4.9 Basophils % 0.5 Nucleated Red 0.0 Blood Cells % Immature 0.090 H Granulocytes # Neutrophils # 6.7 Lymphocytes # 1.9 Monocytes # 1.4 H Eosinophils # 0.5 Basophils # 0.1 Nucleated Red 0.0 Blood Cells # Sodium Level 139 Potassium Level 3.8 Chloride Level 93 L Carbon Dioxide 39 H Level Anion Gap 7 Blood Urea 26 H Nitrogen Creatinine 0.70 Est Glomerular > 60 Filtrat Rate mL/min Glucose Level 180 Calcium Level 8.8 Vancomycin Level 24.8 *H Trough Test 10/25/18 08:06 Bedside Glucose 181 Medications Current Medications IV Flush (NS 3 ml) 3 ml PER PROTOCOL IV ; Start 10/17/18 at 15:30 Hydromorphone HCl (Dilaudid) 0.5 mg Q4H PRN IV SEVERE PAIN LEVEL 7-10 Last administered on 10/20/18at 15:29; Admin Dose 0.5 MG; Start 10/17/18 at 15:30 Famotidine (Pepcid Iv) 20 mg Q12 IV Last administered on 10/25/18at 08:12; Admin Dose 20 MG; Start 10/17/18 at 21:00 Furosemide (Lasix) 40 mg BID DIURETICS IV Last administered on 10/25/18at 06:32; Admin Dose 40 MG; Start 10/19/18 at 10:30 Nystatin (Nystatin Powder) 1 applic BID TOP Last administered on 10/25/18at 08:55; Admin Dose 1 APPLIC; Start 10/19/18 at 21:00 Enoxaparin Sodium (Lovenox) 60 mg DAILY SC Last administered on 10/25/18at 08:14; Admin Dose 60 MG; Start 10/21/18 at 09:00 Ipratropium [place] (Atrovent Hfa) 4 puff Q6H RESP THERAPY INH Last administe red on 10/25/18at 02:48; Admin Dose 4 PUFF; Start 10/20/18 at 20:00 Albuterol (Ventolin Hfa) 4 puff Q6H RESP THERAPY INH Last administered on 10/25/18at 02:48; Admin Dose 4 PUFF; Start 10/20/18 at 20:00 Diagnostic Test (Pha) (Accu-Chek) 1 ea 02 XX Last administered on 10/25/18at 02:51; Admin Dose 1 EA; Start 10/21/18 at 02:00 Insulin Glargine (Lantus) 40 units DAILY@2000 SC Last administered on 10/24/18at 20:37; Admin Dose 40 UNITS; Start 10/20/18 at 20:00 Insulin Aspart (Novolog Insulin Pen) NOVOLOG *MILD* ALGORI... Q4 SC Last administered on 10/25/18at 08:19; Admin Dose 1 UNIT; Start 10/20/18 at 17:00 Miscellaneous Information 1 ea NOTE XX ; Start 10/20/18 at 16:30 Glucose (Glutose) 15 gm Q15M PRN PO DECREASED GLUCOSE; Start 10/20/18 at 16:30 Glucose (Glutose) 22.5 gm Q15M PRN PO DECREASED GLUCOSE; Start 10/20/18 at 16:30 Dextrose (D50w Syringe) 25 ml Q15M PRN IV DECREASED GLUCOSE; Start 10/20/18 at 16:30 Dextrose (D50w Syringe) 50 ml Q15M PRN IV DECREASED GLUCOSE; Start 10/20/18 at 16:30 Glucagon (Glucagen) 1 mg Q15M PRN IM DECREASED GLUCOSE; Start 10/20/18 at 16:30 Glucose (Glutose) 15 gm Q15M PRN BUCCAL DECREASED GLUCOSE; Start 10/20/18 at 16:30 IV Flush (NS 10 ml) 10 ml PRN PRN IV IV PROTOCOL; Start 10/20/18 at 16:30 Midazolam HCl 50 ml @ 1 mls/hr TITRATE IV Last administered on 10/25/18 06:33; Admin Dose 6 MLS/HR; Start 10/22/18 at 02:30 Cefepime HCl 50 ml @ 100 mls/hr Q12 IVPB Last administered on 10/25/18 08:52; Admin Dose 100 MLS/HR; Start 10/22/18 at 11:00 Fentanyl 1000 mcg/ Sodium Chloride 100 ml @ 2.5 mls/hr TITRATE IV Last administered on 10/25/18 08:14; Admin Dose 10 MLS/HR; Start 10/22/18 at 11:30 Docusate Sodium (Colace Liquid Cup) 100 mg BID GTB Last administered on 10/25/18 08:12; Admin Dose 100 MG; Start 10/22/18 at 21:00 Vancomycin HCl (Vanco Iv Per Pharmacy) VANCOMYCIN PER PHARMACY PER PROTOCOL XX ; Start 10/23/18 at 20:30 Acetaminophen (Tylenol Tab) 650 mg Q6H PRN PO MILD PAIN(1-3)OR ELEVATED TEMP Last administered on 10/25/18 06:33; Admin Dose 650 MG; Start 10/23/18 at 20:30 Vancomycin HCl 2 gm/Sodium Chloride 500 ml @ 125 mls/hr Q8H IVPB Last administered on 10/24/18 22:49; Admin Dose 125 MLS/HR; Start 10/23/18 at 23:00; Status Hold Assessment/Plan Additional Assessment/Plan IMP: 1. Severe Hypoxemic Resp Failure--findings consistent with ARDS 2. Acute on chronic Resp Failure 3. Morbid obesity 4. DM 5. FEN RECS: 1. Vent support--> change to V-AC +; targ Vt 450; PEEP 18 cm H20 2. Titrate FiO2; follow ARDSnet guidelines with PEEP titration 3. Continue lasix 4. Follow I/O's 5. Not a good candidate for proning given morbid obesity 40 min cc time Case D/W ANGEL PANDYA MD Oct 25, 2018 11:14
--- NOTE | 2018-10-25 11:37 | PN ---
Date/Time of Note Date/Time of Note DATE: 10/25/18 TIME: 11:36 Assessment/Plan VTE Prophylaxis Risk score (from Ns)>0 risk: 10 Pharmacological prophylaxis: LMWH Assessment/Plan Hospital Course 52 yo male with h/o morbid obesity, DMII who presents with acute hypercapnic and hypoxic respiratory failure 1. Acute hypercapnic and hypoxemic respiratory failure secondary to diastolic CHF and/or pneumonia with underlying OHS and hypercapnia Continue vent support Continue Lasix Continue Levaquin Pulmonology managing mechanical ventilation Of note echo shows normal EF 2. Diabetes Status post insulin drip, continue subcu regimen 3. Super morbid obesity Lifestyle changes Prophylaxis: Lovenox DC planning: Patient continues to require 100% FiO2, patient has poor prognosis and have spoken to family and they want the patient to remain a full code and continue aggressive care and would like tracheostomy if need be, continue to discuss goals of care Result Diagram: 10/25/18 0428 10/25/18 0428 Results 24hrs Laboratory Tests Test 10/24/18 13:53 10/24/18 17:17 10/24/18 17:58 10/24/18 20:15 Bedside Glucose 144 129 125 143 Test 10/25/18 01:26 10/25/18 02:30 10/25/18 04:06 10/25/18 04:28 Bedside Glucose 129 179 Blood Gas Blood arterial Specimen Source Arterial Blood 10/25/2018 2:30:2 Date Drawn 7 AM Arterial Blood pH 7.391 (Temp corrected) Arterial Blood 74.6 H pCO2 (Temp correct) Arterial Blood 70.4 L pO2 (Temp corrected) Arterial Blood 44.2 *H HCO3 Arterial Blood 15.4 H Base Excess Arterial Blood 93.3 L Oxygen Saturation Danilo Test ACCEPTAB Arterial Blood Right Radial Gas Puncture Site Arterial 0.8 Blood Carboxyhemo globin Arterial Blood 0.4 Methemoglobin Blood Gas A-a O2 568.0 H Differential Oxyhemoglobin 92.2 L Percent Blood Gas 37.0 Temperature Blood Gas 28.0 Respiration Rate Blood Gas Actual 28 Respiration Rate Blood Gas VENT - PC Modality FiO2 100.0 Blood Gas 1 Inspiratory Time Blood Gas Low 10.0 PEEP Setting Blood Gas 45.0 Inspiratory Pressure Blood Gas Jose PAIZ RN Critical Value Read Back Blood Gas UP Notified Whom Blood Gas 10/25/2018 2:42:0 Notified Time 2 AM White Blood Count 10.7 Red Blood Count 4.68 L Hemoglobin 12.7 L Hematocrit 42.4 Mean Corpuscular 90.6 Volume Mean Corpuscular 27.1 L Hemoglobin Mean Corpuscular 30.0 L Hemoglobin Concen t Red Cell 17.0 H Distribution Width Platelet Count 266 Mean Platelet 10.5 H Volume Immature 0.800 H Granulocytes % Neutrophils % 62.7 Lymphocytes % 17.8 Monocytes % 13.3 H Eosinophils % 4.9 Basophils % 0.5 Nucleated Red 0.0 Blood Cells % Immature 0.090 H Granulocytes # Neutrophils # 6.7 Lymphocytes # 1.9 Monocytes # 1.4 H Eosinophils # 0.5 Basophils # 0.1 Nucleated Red 0.0 Blood Cells # Sodium Level 139 Potassium Level 3.8 Chloride Level 93 L Carbon Dioxide 39 H Level Anion Gap 7 Blood Urea 26 H Nitrogen Creatinine 0.70 Est Glomerular > 60 Filtrat Rate mL/min Glucose Level 180 Calcium Level 8.8 Vancomycin Level 24.8 *H Trough Test 10/25/18 08:06 Bedside Glucose 181 Subjective 24 Hr Interval Summary Subjective hx not possible: pt non-verbal Exam/Review of Systems Vital Signs Vitals Vital Signs Date Temp Pulse Resp B/P (MAP) Pulse Ox O2 O2 Flow FiO2 Time Delivery Rate 10/25/18 81 9 112/69 93 [place] 11:00 (83) l Ventilato r 10/25/18 100.3 08:00 10/25/18 100 05:25 Intake and Output 10/24/18 10/24/18 10/25/18 1515:00 23:00 07:00 IntakeIntake Total 1162.0 ml 1790.0 ml 886.0 ml OutputOutput Total 710 ml 765 ml 340 ml BalanceBalance 452.0 ml 1025.0 ml 546.0 ml Exam Constitutional: non-verbal ENMT: intubated Respiratory: clear to auscultation Cardiovascular: regular rate and rhythm Gastrointestinal: soft; No distended Musculoskeletal: nl extremities to inspection Medications Medications Current Medications IV Flush (NS 3 ml) 3 ml PER PROTOCOL IV ; Start 10/17/18 at 15:30 Hydromorphone HCl (Dilaudid) 0.5 mg Q4H PRN IV SEVERE PAIN LEVEL 7-10 Last administered on 10/20/18at 15:29; Admin Dose 0.5 MG; Start 10/17/18 at 15:30 Famotidine (Pepcid Iv) 20 mg Q12 IV Last administered on 10/25/18 08:12; Admin Dose 20 MG; Start 10/17/18 at 21:00 Furosemide (Lasix) 40 mg BID DIURETICS IV Last administered on 10/25/18 06:32; Admin Dose 40 MG; Start 10/19/18 at 10:30 Nystatin (Nystatin Powder) 1 applic BID TOP Last administered on 10/25/18at 08:55; Admin Dose 1 APPLIC; Start 10/19/18 at 21:00 Enoxaparin Sodium (Lovenox) 60 mg DAILY SC Last administered on 10/25/18 08:14; Admin Dose 60 MG; Start 10/21/18 at 09:00 Ipratropium [place] (Atrovent Hfa) 4 puff Q6H RESP THERAPY INH Last a dministered on 10/25/18 02:48; Admin Dose 4 PUFF; Start 10/20/18 at 20:00 Albuterol (Ventolin Hfa) 4 puff Q6H RESP THERAPY INH Last administered on 10/25/18 02:48; Admin Dose 4 PUFF; Start 10/20/18 at 20:00 Diagnostic Test (Pha) (Accu-Chek) 1 ea 02 XX Last administered on 10/25/18at 02:51; Admin Dose 1 EA; Start 10/21/18 at 02:00 Insulin Glargine (Lantus) 40 units DAILY@2000 SC Last administered on 10/24/18at 20:37; Admin Dose 40 UNITS; Start 10/20/18 at 20:00 Insulin Aspart (Novolog Insulin Pen) NOVOLOG *MILD* ALGORI... Q4 SC Last administered on 10/25/18 08:19; Admin Dose 1 UNIT; Start 10/20/18 at 17:00 Miscellaneous Information 1 ea NOTE XX ; Start 10/20/18 at 16:30 Glucose (Glutose) 15 gm Q15M PRN PO DECREASED GLUCOSE; Start 10/20/18 at 16:30 Glucose (Glutose) 22.5 gm Q15M PRN PO DECREASED GLUCOSE; Start 10/20/18 at 16:30 Dextrose (D50w Syringe) 25 ml Q15M PRN IV DECREASED GLUCOSE; Start 10/20/18 at 16:30 Dextrose (D50w Syringe) 50 ml Q15M PRN IV DECREASED GLUCOSE; Start 10/20/18 at 16:30 Glucagon (Glucagen) 1 mg Q15M PRN IM DECREASED GLUCOSE; Start 10/20/18 at 16:30 Glucose (Glutose) 15 gm Q15M PRN BUCCAL DECREASED GLUCOSE; Start 10/20/18 at 16:30 IV Flush (NS 10 ml) 10 ml PRN PRN IV IV PROTOCOL; Start 10/20/18 at 16:30 Midazolam HCl 50 ml @ 1 mls/hr TITRATE IV Last administered on 10/25/18 06:33; Admin Dose 6 MLS/HR; Start 10/22/18 at 02:30 Cefepime HCl 50 ml @ 100 mls/hr Q12 IVPB Last administered on 10/25/18at 08:52; Admin Dose 100 MLS/HR; Start 10/22/18 at 11:00 Fentanyl 1000 mcg/ Sodium Chloride 100 ml @ 2.5 mls/hr TITRATE IV Last administered on 10/25/18at 08:14; Admin Dose 10 MLS/HR; Start 10/22/18 at 11:30 Docusate Sodium (Colace Liquid Cup) 100 mg BID GTB Last administered on 10/25/18 08:12; Admin Dose 100 MG; Start 10/22/18 at 21:00 Vancomycin HCl (Vanco Iv Per Pharmacy) VANCOMYCIN PER PHARMACY PER PROTOCOL XX ; Start 10/23/18 at 20:30 Acetaminophen (Tylenol Tab) 650 mg Q6H PRN PO MILD PAIN(1-3)OR ELEVATED TEMP Last administered on 10/25/18at 06:33; Admin Dose 650 MG; Start 10/23/18 at 20:30 Vancomycin HCl 2 gm/Sodium Chloride 500 ml @ 125 mls/hr Q8H IVPB Last administered on 10/24/18at 22:49; Admin Dose 125 MLS/HR; Start 10/23/18 at 23:00; Status Hold COURT E[place] Oct 25, 2018 11:37
[2018-10-25] MEDS: VANCOMYCIN HCL 2 GM in SOD CHLORIDE 0.9% 500 ML IVPB SCH (16:20)
[2018-10-25] MEDS: INSULIN GLARGINE [LANTus] (100 UNITS/ML) SYG SC SCH (20:16)
[2018-10-26] VITALS (35 sets, daily range): BP systolic 104–122; BP diastolic 58–90; PULSE 85–101; RESP 28
[2018-10-26] MEDS: MIDAZOLAM (DRIP) 50 mg/50 mL 50 ML IV SCH ×3 (00:55→18:44)
[2018-10-26] MEDS: INSULIN ASPART [NOVOLOG] 3 ML PEN SC SCH ×6 (00:55→20:48)
[2018-10-26] MEDS: IPRATROPIUM (HFA) 12.9 GM INHALER INH SCH ×4 (02:08→20:25)
[2018-10-26] MEDS: ALBUTEROL HFA 8 GM INHALER INH SCH ×4 (02:08→20:25)
[2018-10-26] MEDS: ACCU-CHEK XX SCH (02:31)
[2018-10-26] MEDS: FENTAnyl 1,000 MCG in SOD CHLORIDE 0.9% 80 ML IV SCH ×2 (03:24→14:06)
[2018-10-26] MEDS: VANCOMYCIN HCL 2 GM in SOD CHLORIDE 0.9% 500 ML IVPB SCH ×2 (04:27→16:31)
[2018-10-26] MEDS: FUROSEMIDE 40 MG INJ IV SCH ×2 (05:40→17:41)
[2018-10-26] MEDS: DOCUSATE SODIUM 10 MG/ML (10ML CUP) GTB SCH ×2 (09:37→20:46)
[2018-10-26] MEDS: FAMOTIDINE 20 MG INJ IV SCH ×2 (09:37→20:46)
[2018-10-26] MEDS: CEFEPIME 2GM/50 ML (PMX) 50 ML IVPB SCH ×2 (09:37→20:47)
[2018-10-26] MEDS: ENOXAPARIN 60 MG/0.6 ML SYG SC SCH (09:40)
[2018-10-26] MEDS: NYSTATIN 30 GM POWDER BTL TOP SCH ×2 (09:54→20:46)
--- NOTE | 2018-10-26 11:52 | CONS ---
Date/Time of Note Date/Time of Note DATE: 10/26/18 TIME: 11:48 Consult Date/Type/Reason Admit Date/Time Oct 17, 2018 at 14:17 Initial Consult Date 10/18/18 Type of Consultation: Pulm/CCM Subjective Mildly improved gas exchange on new vent settings. Remains sedated on vent. Objective Vital Signs Date Temp Pulse Resp B/P (MAP) Pulse Ox O2 O2 Flow FiO2 Time Delivery Rate 10/26/18 93 28 116/70 96 Mechanical 11:00 (85) Ventilator 10/26/18 98.9 08:00 10/26/18 90 05:38 Intake and Output 10/25/18 10/25/18 10/26/18 1414:59 22:59 06:59 IntakeIntake Total 1892 ml 1333 ml 1500.0 ml OutputOutput Total 380 ml 425 ml 830 ml BalanceBalance 1512 ml 908 ml 670.0 ml Exam HEENT: Neck supple; no JVD; no LAD; + Et tube CVS: RRR, S1 and S2 CHEST: Distant breath sounds. ABD: Obese, NT, + BS EXT: No c/c: + edema NEURO: Sedated on the vent Results/Medications Result Diagram: 10/26/18 0430 10/26/18 0430 Results 24 hrs Laboratory Tests Test 10/25/18 13:23 10/25/18 14:09 10/25/18 17:13 10/25/18 19:57 Bedside Glucose 151 129 144 Blood Gas Blood arterial Specimen Source Arterial Blood 10/25/2018 2:15: Date Drawn 59 PM Arterial Blood 7.391 pH (Temp corrected) Arterial Blood 74.0 H pCO2 (Temp correct) Arterial Blood 89.7 pO2 (Temp corrected) Arterial Blood 43.9 *H HCO3 Arterial Blood 15.1 H Base Excess Arterial Blood 96.3 Oxygen Saturatio n Danilo Test ACCEPTAB Arterial Blood Left Radial Gas Puncture Site Arterial 0.8 Blood Carboxyhem oglobin Arterial Blood 0.3 Methemoglobin Blood Gas A-a O2 549.3 H Differential Oxyhemoglobin 95.2 Percent Blood Gas 37.0 Temperature Blood Gas 28.0 Respiration Rate Blood Gas Actual 28 Respiration Rate Blood Gas VENT - AC Modality FiO2 100.0 Blood Gas Tidal 450.0 Volume Blood Gas Low 18.0 PEEP Setting Blood Gas NELL MENA Critical Value Read Back Blood Gas ROSEMARY QUINONEZ Notified Whom Blood Gas 10/25/2018 2:27: Notified Time 05 PM Test 10/26/18 00:41 10/26/18 04:27 10/26/18 04:30 10/26/18 05:00 Bedside Glucose 138 143 White Blood 10.7 Count Red Blood Count 4.67 L Hemoglobin 12.7 L Hematocrit 43.0 Mean Corpuscular 92.1 Volume Mean Corpuscular 27.2 L Hemoglobin Mean Corpuscular 29.5 L Hemoglobin Danni nt Red Cell 17.2 H Distribution Width Platelet Count 274 Mean Platelet 10.7 H Volume Immature 0.600 H Granulocytes % Neutrophils % 56.2 Segmented 63 Neutrophils % (Manual) Band Neutrophils 2 % (Manual) Lymphocytes % 18.2 Lymphocytes % 11 L (Manual) Monocytes % 17.0 H Monocytes % 13 H (Manual) Eosinophils % 7.2 H Eosinophils % 11 H (Manual) Basophils % 0.8 Nucleated Red 0.0 Blood Cells % Immature 0.060 H Granulocytes # Neutrophils # 6.0 Neutrophils # 6.8 (Manual) Band Neutrophils 0.2 # Lymphocytes 1.1 (Manual) Lymphocytes # 1.9 Monocytes # 1.8 H Monocytes # 1.3 H (Manual) Eosinophils # 0.8 H Basophils # 0.1 Nucleated Red 0.0 Blood Cells # Platelet NORMAL Estimate Giant Platelets 3 H Polychromasia 3+ Poikilocytosis 1+ Anisocytosis 1+ Target Cells 1+ Sodium Level 141 Potassium Level 4.1 Chloride Level 93 L Carbon Dioxide 39 H Level Anion Gap 9 Blood Urea 32 H Nitrogen Creatinine 0.65 Est Glomerular > 60 Filtrat Rate mL/min Glucose Level 156 Lactic Acid 1.4 Level Calcium Level 9.1 Blood Gas Blood arterial Specimen Source Arterial Blood 10/26/2018 4:42: Date Drawn 31 AM Arterial Blood 7.350 pH (Temp corrected) Arterial Blood 82.9 *H pCO2 (Temp correct) Arterial Blood 88.8 pO2 (Temp corrected) Arterial Blood 44.7 *H HCO3 Arterial Blood 14.9 H Base Excess Arterial Blood 96.2 Oxygen Saturatio n Danilo Test ACCEPTAB Arterial Blood Right Radial Gas Puncture Site Arterial 1.3 Blood Carboxyhem oglobin Arterial Blood 0.4 Methemoglobin Blood Gas A-a O2 467.9 H Differential Oxyhemoglobin 94.6 Percent Blood Gas 37.0 Temperature Blood Gas 28.0 Respiration Rate Blood Gas Actual 28 Respiration Rate Blood Gas VENT - AC Modality FiO2 90.0 Blood Gas Tidal 450.0 Volume Blood Gas Low 18.0 PEEP Setting Blood Gas 45.0 Inspiratory Pressure Blood Gas Jose PAIZ RN Critical Value Read Back Blood Gas KM Notified Whom Blood Gas 10/26/2018 4:56: Notified Time 10 AM Test 10/26/18 09:51 Bedside Glucose 161 Medications Current Medications IV Flush (NS 3 ml) 3 ml PER PROTOCOL IV ; Start 10/17/18 at 15:30 Hydromorphone HCl (Dilaudid) 0.5 mg Q4H PRN IV SEVERE PAIN LEVEL 7-10 Last administered on 10/20/18 15:29; Admin Dose 0.5 MG; Start 10/17/18 at 15:30 Famotidine (Pepcid Iv) 20 mg Q12 IV Last administered on 10/26/18 09:37; Admin Dose 20 MG; Start 10/17/18 at 21:00 Furosemide (Lasix) 40 mg BID DIURETICS IV Last administered on 10/26/18 05:40; Admin Dose 40 MG; Start 10/19/18 at 10:30 Nystatin (Nystatin Powder) 1 applic BID TOP Last administered on 10/26/18 09:54; Admin Dose 1 APPLIC; Start 10/19/18 at 21:00 Enoxaparin Sodium (Lovenox) 60 mg DAILY SC Last administered on 10/26/18 09:40; Admin Dose 60 MG; Start 10/21/18 at 09:00 Ipratropium [place] (Atrovent Hfa) 4 puff Q6H RESP THERAPY INH Last administered on 10/26/18 08:08; Admin Dose 4 PUFF; Start 10/20/18 at 20:00 Albuterol (Ventolin Hfa) 4 puff Q6H RESP THERAPY INH Last administered on 10/26/18 08:07; Admin Dose 4 PUFF; Start 10/20/18 at 20:00 Diagnostic Test (Pha) (Accu-Chek) 1 ea 02 XX Last administered on 10/26/18 02:31; Admin Dose 1 EA; Start 10/21/18 at 02:00 Insulin Glargine (Lantus) 40 units DAILY@2000 SC Last administered on 1/19/19at 20:16; Admin Dose 40 UNITS; Start 10/20/18 at 20:00 Insulin Aspart (Novolog Insulin Pen) NOVOLOG *MILD* ALGORI... Q4 SC Last administered on 10/26/18at 09:58; Admin Dose 1 UNIT; Start 10/20/18 at 17:00 Miscellaneous Information 1 ea NOTE XX ; Start 10/20/18 at 16:30 Glucose (Glutose) 15 gm Q15M PRN PO DECREASED GLUCOSE; Start 10/20/18 at 16:30 Glucose (Glutose) 22.5 gm Q15M PRN PO DECREASED GLUCOSE; Start 10/20/18 at 16:30 Dextrose (D50w Syringe) 25 ml Q15M PRN IV DECREASED GLUCOSE; Start 10/20/18 at 16:30 Dextrose (D50w Syringe) 50 ml Q15M PRN IV DECREASED GLUCOSE; Start 10/20/18 at 16:30 Glucagon (Glucagen) 1 mg Q15M PRN IM DECREASED GLUCOSE; Start 10/20/18 at 16:30 Glucose (Glutose) 15 gm Q15M PRN BUCCAL DECREASED GLUCOSE; Start 10/20/18 at 16:30 IV Flush (NS 10 ml) 10 ml PRN PRN IV IV PROTOCOL; Start 10/20/18 at 16:30 Midazolam HCl 50 ml @ 1 mls/hr TITRATE IV Last administered on 10/26/18at 09:41; Admin Dose 6 MLS/HR; Start 10/22/18 at 02:30 Cefepime HCl 50 ml @ 100 mls/hr Q12 IVPB Last administered on 10/26/18at 09:37; Admin Dose 100 MLS/HR; Start 10/22/18 at 11:00 Fentanyl 1000 mcg/ Sodium Chloride 100 ml @ 2.5 mls/hr TITRATE IV Last administered on 10/26/18at 03:24; Admin Dose 10 MLS/HR; Start 10/22/18 at 11:30 Docusate Sodium (Colace Liquid Cup) 100 mg BID GTB Last administered on 10/26/18at 09:37; Admin Dose 100 MG; Start 10/22/18 at 21:00 Vancomycin HCl (Vanco Iv Per Pharmacy) VANCOMYCIN PER PHARMACY PER PROTOCOL XX ; Start 10/23/18 at 20:30 Acetaminophen (Tylenol Tab) 650 mg Q6H PRN PO MILD PAIN(1-3)OR ELEVATED TEMP Last administered on 10/25/18at 06:33; Admin Dose 650 MG; Start 10/23/18 at 20:30 Vancomycin HCl 2 gm/Sodium Chloride 500 ml @ 125 mls/hr Q12H IVPB Last administered on 10/26/18at 04:27; Admin Dose 125 MLS/HR; Start 10/25/18 at 16:00 Assessment/Plan Additional Assessment/Plan IMP: 1. Severe Hypoxemic Resp Failure--findings consistent with ARDS 2. Acute on chronic Hypoxemic and Hypercapnic Resp Failure 3. Morbid obesity with OHS 4. DM 5. FEN RECS: 1. Continue lung protective/open lung strategy with PEEP 18; lower FiO2 2. Follow ARDSnet guidelines with PEEP titration 3. Continue lasix IV 4. Follow I/O's 5. Daily sedation lowering 40 min cc time Case D/W ANGEL PANDYA MD Oct 26, 2018 11:52
--- NOTE | 2018-10-26 18:24 | PN ---
Date/Time of Note Date/Time of Note DATE: 10/26/18 TIME: 18:17 Assessment/Plan VTE Prophylaxis Risk score (from Ns)>0 risk: 10 Pharmacological prophylaxis: LMWH Assessment/Plan Hospital Course 52 yo male with h/o morbid obesity, DMII who presents with acute hypercapnic and hypoxic respiratory failure 1. Acute hypercapnic and hypoxemic respiratory failure secondary to diastolic CHF and/or pneumonia with underlying OHS and hypercapnia Continue vent support, pulmonology has been able to wean down FiO2 to 90% by increasing the PEEP Continue cefepime, DC vancomycin Continue Lasix Pulmonology managing mechanical ventilation Of note echo shows normal EF 2. Sepsis with fevers and tachycardia likely secondary to pneumonia Continue cefepime, DC Vanco Single blood culture is positive for coag negative staph but is likely a contaminant 3. Super morbid obesity Lifestyle changes 4. Diabetes Status post insulin drip, continue subcu regimen Prophylaxis: Lovenox DC planning: Continues to require aggressive vent support but FiO2 was titrated down today, patient has poor prognosis and have spoken to family and they want the patient to remain a full code and continue aggressive care and would like tracheostomy if need be, continue to discuss goals of care Result Diagram: 10/26/18 0430 10/26/18 0430 Results 24hrs Laboratory Tests Test 10/25/18 19:57 10/26/18 00:41 10/26/18 04:27 10/26/18 04:30 Bedside Glucose 144 138 143 White Blood Count 10.7 Red Blood Count 4.67 L Hemoglobin 12.7 L Hematocrit 43.0 Mean Corpuscular 92.1 Volume Mean Corpuscular 27.2 L Hemoglobin Mean Corpuscular 29.5 L Hemoglobin Concen t Red Cell 17.2 H Distribution Width Platelet Count 274 Mean Platelet 10.7 H Volume Immature 0.600 H Granulocytes % Neutrophils % 56.2 Segmented 63 Neutrophils % (Manual) Band Neutrophils 2 % (Manual) Lymphocytes % 18.2 Lymphocytes % 11 L (Manual) Monocytes % 17.0 H Monocytes % 13 H (Manual) Eosinophils % 7.2 H Eosinophils % 11 H (Manual) Basophils % 0.8 Nucleated Red 0.0 Blood Cells % Immature 0.060 H Granulocytes # Neutrophils # 6.0 Neutrophils # 6.8 (Manual) Band Neutrophils 0.2 # Lymphocytes 1.1 (Manual) Lymphocytes # 1.9 Monocytes # 1.8 H Monocytes # 1.3 H (Manual) Eosinophils # 0.8 H Basophils # 0.1 Nucleated Red 0.0 Blood Cells # Platelet Estimate NORMAL Giant Platelets 3 H Polychromasia 3+ Poikilocytosis 1+ Anisocytosis 1+ Target Cells 1+ Sodium Level 141 Potassium Level 4.1 Chloride Level 93 L Carbon Dioxide 39 H Level Anion Gap 9 Blood Urea 32 H Nitrogen Creatinine 0.65 Est Glomerular > 60 Filtrat Rate mL/min Glucose Level 156 Lactic Acid Level 1.4 Calcium Level 9.1 Test 10/26/18 05:00 10/26/18 09:51 10/26/18 13:43 10/26/18 16:37 Blood Gas Blood arterial Specimen Source Arterial Blood 10/26/2018 4:42:3 Date Drawn 1 AM Arterial Blood pH 7.350 (Temp corrected) Arterial Blood 82.9 *H pCO2 (Temp correct) Arterial Blood 88.8 pO2 (Temp corrected) Arterial Blood 44.7 *H HCO3 Arterial Blood 14.9 H Base Excess Arterial Blood 96.2 Oxygen Saturation Danilo Test ACCEPTAB Arterial Blood Right Radial Gas Puncture Site Arterial 1.3 Blood Carboxyhemo globin Arterial Blood 0.4 Methemoglobin Blood Gas A-a O2 467.9 H Differential Oxyhemoglobin 94.6 Percent Blood Gas 37.0 Temperature Blood Gas 28.0 Respiration Rate Blood Gas Actual 28 Respiration Rate Blood Gas VENT - AC Modality FiO2 90.0 Blood Gas Tidal 450.0 Volume Blood Gas Low 18.0 PEEP Setting Blood Gas 45.0 Inspiratory Pressure Blood Gas Jose PAIZ RN Critical Value Read Back Blood Gas Notified Whom Blood Gas 10/26/2018 4:56:1 Notified Time 0 AM Bedside Glucose 161 163 150 Subjective 24 Hr Interval Summary Subjective hx not possible: pt non-verbal Exam/Review of Systems Vital Signs Vitals Vital Signs Date Temp Pulse Resp B/P (MAP) Pulse Ox O2 O2 Flow FiO2 Time Delivery Rate 10/26/18 101 28 122/78 95 Mechanical 18:00 (93) Ventilator 10/26/18 80 17:05 10/26/18 99.0 16:00 Intake and Output 10/25/18 10/25/18 10/26/18 1515:00 23:00 07:00 IntakeIntake Total 1908 ml 1333 ml 1500.0 ml OutputOutput Total 390 ml 460 ml 850 ml BalanceBalance 1518 ml 873 ml 650.0 ml Exam Constitutional: non-verbal Respiratory: clear to auscultation Cardiovascular: regular rate and rhythm Gastrointestinal: soft; No distended Musculoskeletal: nl extremities to inspection Medications Medications Current Medications IV Flush (NS 3 ml) 3 ml PER PROTOCOL IV ; Start 10/17/18 at 15:30 Hydromorphone HCl (Dilaudid) 0.5 mg Q4H PRN IV SEVERE PAIN LEVEL 7-10 Last administered on 10/20/18 15:29; Admin Dose 0.5 MG; Start 10/17/18 at 15:30 Famotidine (Pepcid Iv) 20 mg Q12 IV Last administered on 10/26/18 09:37; Admin Dose 20 MG; Start 10/17/18 at 21:00 Furosemide (Lasix) 40 mg BID DIURETICS IV Last administered on 10/26/18 17: 41; Admin Dose 40 MG; Start 10/19/18 at 10:30 Nystatin (Nystatin Powder) 1 applic BID TOP Last administered on 10/26/18 09:54; Admin Dose 1 APPLIC; Start 10/19/18 at 21:00 Enoxaparin Sodium (Lovenox) 60 mg DAILY SC Last administered on 10/26/18 09:40; Admin Dose 60 MG; Start 10/21/18 at 09:00 Ipratropium [place] (Atrovent Hfa) 4 puff Q6H RESP THERAPY INH Last administered on 10/26/18 13:27; Admin Dose 4 PUFF; Start 10/20/18 at 20:00 Albuterol (Ventolin Hfa) 4 puff Q6H RESP THERAPY INH Last administered on 10/26/18 13:27; Admin Dose 4 PUFF; Start 10/20/18 at 20:00 Diagnostic Test (Pha) (Accu-Chek) 1 ea 02 XX Last administered on 10/26/18 02:31; Admin Dose 1 EA; Start 10/21/18 at 02:00 Insulin Glargine (Lantus) 40 units DAILY@2000 SC Last administered on 10/25/18 20:16; Admin Dose 40 UNITS; Start 10/20/18 at 20:00 Insulin Aspart (Novolog Insulin Pen) NOVOLOG *MILD* ALGORI... Q4 SC Last administered on 10/26/18at 16:43; Admin Dose 1 UNIT; Start 10/20/18 at 17:00 Miscellaneous Information 1 ea NOTE XX ; Start 10/20/18 at 16:30 Glucose (Glutose) 15 gm Q15M PRN PO DECREASED GLUCOSE; Start 10/20/18 at 16:30 Glucose (Glutose) 22.5 gm Q15M PRN PO DECREASED GLUCOSE; Start 10/20/18 at 16:30 Dextrose (D50w Syringe) 25 ml Q15M PRN IV DECREASED GLUCOSE; Start 10/20/18 at 16:30 Dextrose (D50w Syringe) 50 ml Q15M PRN IV DECREASED GLUCOSE; Start 10/20/18 at 16:30 Glucagon (Glucagen) 1 mg Q15M PRN IM DECREASED GLUCOSE; Start 10/20/18 at 16:30 Glucose (Glutose) 15 gm Q15M PRN BUCCAL DECREASED GLUCOSE; Start 10/20/18 at 16:30 IV Flush (NS 10 ml) 10 ml PRN PRN IV IV PROTOCOL; Start 10/20/18 at 16:30 Midazolam HCl 50 ml @ 1 mls/hr TITRATE IV Last administered on 10/26/18at 09:41; Admin Dose 6 MLS/HR; Start 10/22/18 at 02:30 Cefepime HCl 50 ml @ 100 mls/hr Q12 IVPB Last administered on 10/26/18at 09:37; Admin Dose 100 MLS/HR; Start 10/22/18 at 11:00 Fentanyl 1000 mcg/ Sodium Chloride 100 ml @ 2.5 mls/hr TITRATE IV Last administered on 10/26/18at 14:06; Admin Dose 10 MLS/HR; Start 10/22/18 at 11:30 Docusate Sodium (Colace Liquid Cup) 100 mg BID GTB Last administered on 10/26/18at 09:37; Admin Dose 100 MG; Start 10/22/18 at 21:00 Vancomycin HCl (Vanco Iv Per Pharmacy) VANCOMYCIN PER PHARMACY PER PROTOCOL XX ; Start 10/23/18 at 20:30 Acetaminophen (Tylenol Tab) 650 mg Q6H PRN PO MILD PAIN(1-3)OR ELEVATED TEMP Last administered on 10/25/18at 06:33; Admin Dose 650 MG; Start 10/23/18 at 20:30 Vancomycin HCl 2 gm/Sodium Chloride 500 ml @ 125 mls/hr Q12H IVPB Last administered on 10/26/18at 16:31; Admin Dose 125 MLS/HR; Start 10/25/18 at 16:00 Miscellaneous Information (*Rx Drug Level Order Reminder*) VANCO TROUGH @ 0,300 ON... ONCE ONCE XX ; Start 10/27/18 at 03:00; Stop 10/27/18 at 03:[address] [place] Oct 26, 2018 18:24
[2018-10-26] MEDS: INSULIN GLARGINE [LANTus] (100 UNITS/ML) SYG SC SCH (20:47)
[2018-10-27] VITALS (36 sets, daily range): BP systolic 106–137; BP diastolic 65–90; PULSE 86–117; RESP 12–31
[2018-10-27] MEDS: INSULIN ASPART [NOVOLOG] 3 ML PEN SC SCH ×6 (00:48→20:38)
[2018-10-27] MEDS: FENTAnyl 1,000 MCG in SOD CHLORIDE 0.9% 80 ML IV SCH ×3 (01:08→20:46)
[2018-10-27] MEDS: ALBUTEROL HFA 8 GM INHALER INH SCH ×4 (01:39→19:20)
[2018-10-27] MEDS: IPRATROPIUM (HFA) 12.9 GM INHALER INH SCH ×4 (01:39→19:20)
[2018-10-27] MEDS: ACCU-CHEK XX SCH (02:22)
[2018-10-27] MEDS: MIDAZOLAM (DRIP) 50 mg/50 mL 50 ML IV SCH ×3 (03:27→20:46)
[2018-10-27] MEDS: FUROSEMIDE 40 MG INJ IV SCH ×2 (05:46→18:10)
--- NOTE | 2018-10-27 08:58 | PN ---
Date/Time of Note Date/Time of Note DATE: 10/27/18 TIME: 08:58 Assessment/Plan VTE Prophylaxis Risk score (from Ns)>0 risk: 12 SCD applied (from [facility]): No SCD contraindicated: other Pharmacological prophylaxis: LMWH Lines/Catheters IV Catheter Type (from Nrsg): PICC Line Central line still needed: Yes Urinary Cath still in place: Yes Reason Cath still needed: skin wounds contaminated by urine Assessment/Plan Assessment/Plan 1. Acute hypercapnic and hypoxemic respiratory failure secondary to diastolic CHF and/or pneumonia with underlying OHS and hypercapnia - Pulmonology on board and appreciate consultation. Continue vent support with ARDS protocol - ABG noted with elevated in PCO2 levels - Continue on Cefepime - Continue Lasix 2. Sepsis with fevers and tachycardia likely secondary to pneumonia - Continue cefepime, DC Vanco - Single blood culture is positive for coag negative staph but is likely a con taminant 3. Severe morbid obesity - Lifestyle changes 4. Diabetes - Will continue Lantus and ISS. Adjust as needed for glucose control 5. Disposition - Continue current management of vent settings per Pulmonology recommendations. Discussed with sister need to trach in the near future >35 minutes of critical care time spent with patient and family at bedside Result Diagram: 10/27/18 0436 10/27/18 0436 Results 24hrs Laboratory Tests Test 10/26/18 09:51 10/26/18 13:43 10/26/18 16:37 10/26/18 20:43 Bedside Glucose 161 163 150 152 Test 10/27/18 00:46 10/27/18 04:36 10/27/18 04:40 10/27/18 05:00 Bedside Glucose 140 White Blood Count 10.8 Red Blood Count 4.63 L Hemoglobin 12.6 L Hematocrit 42.8 Mean Corpuscular 92.4 Volume Mean Corpuscular 27.2 L Hemoglobin Mean Corpuscular 29.4 L Hemoglobin Concen t Red Cell 17.4 H Distribution Width Platelet Count 296 Mean Platelet 11.0 H Volume Immature 0.400 Granulocytes % Neutrophils % 58.3 Lymphocytes % 17.8 Monocytes % 15.8 H Eosinophils % 6.8 Basophils % 0.9 Nucleated Red 0.0 Blood Cells % Immature 0.040 H Granulocytes # Neutrophils # 6.3 Lymphocytes # 1.9 Monocytes # 1.7 H Eosinophils # 0.7 H Basophils # 0.1 Nucleated Red 0.0 Blood Cells # Sodium Level 141 Potassium Level 4.5 Chloride Level 94 L Carbon Dioxide 41 *H Level Anion Gap 6 Blood Urea 30 H Nitrogen Creatinine 0.57 L Est Glomerular > 60 Filtrat Rate mL/min Glucose Level 150 Calcium Level 9.2 Lactic Acid Level 1.4 Blood Gas Blood arterial Specimen Source Arterial Blood 10/27/2018 4:30:0 Date Drawn 0 AM Arterial Blood pH 7.350 (Temp corrected) Arterial Blood 85.0 *H pCO2 (Temp correct) Arterial Blood 79.8 L pO2 (Temp corrected) Arterial Blood 45.9 *H HCO3 Arterial Blood 15.8 H Base Excess Arterial Blood 94.9 L Oxygen Saturation Danilo Test ACCEPTAB Arterial Blood Right Radial Gas Puncture Site Arterial 0.6 Blood Carboxyhemo globin Arterial Blood 0.3 Methemoglobin Blood Gas A-a O2 401.4 H Differential Oxyhemoglobin 94.0 Percent Blood Gas 37.0 Temperature Blood Gas 28.0 Respiration Rate Blood Gas Actual 28 Respiration Rate Blood Gas VENT - AC Modality FiO2 80.0 Blood Gas Tidal 450.0 Volume Blood Gas Low 18.0 PEEP Setting Blood Gas 52.0 Inspiratory Pressure Blood Gas GAVINO CAMEJO Critical Value Read Back Blood Gas MR Notified Whom Blood Gas 10/27/2018 4:42:0 Notified Time 0 AM Test 10/27/18 05:14 Bedside Glucose 144 Subjective 24 Hr Interval Summary Free Text/Dictation Patient remains intubated and on fentanyl. Sister at bedside and states patient does follow commands at time. no acute overnight events. Exam/Review of Systems Vital Signs Vitals Vital Signs Date Temp Pulse Resp B/P (MAP) Pulse Ox O2 O2 Flow FiO2 Time Delivery Rate 10/27/18 97 28 128/88 96 Mechanical 06:00 (101) Ventilator 10/27/18 80 05:53 10/27/18 98.4 04:00 Intake and Output 10/26/18 10/26/18 10/27/18 1515:00 23:00 07:00 IntakeIntake Total 1018 ml 954 ml 903 ml OutputOutput Total 640 ml 895 ml 735 ml BalanceBalance 378 ml 59 ml 168 ml Exam General: Remains intubated and sedated. no acute distress. trying to open eyes to commands Head: Normocephalic atraumatic Eyes: EOMI, pupils reactive to light Neck: Supple, nontender, midline Respiratory: Clear to auscultation bilaterally. diminished air entry. no wheezing or rhonchi Cardiovascular: regular rate and rhythm. no obvious murmurs Gastrointestinal: soft, non-tender to palpation, obese, bowel sounds heard. Medications Medications Current Medications IV Flush (NS 3 ml) 3 ml PER PROTOCOL IV ; Start 10/17/18 at 15:30 Hydromorphone HCl (Dilaudid) 0.5 mg Q4H PRN IV SEVERE PAIN LEVEL 7-10 Last administered on 10/20/18 15:29; Admin Dose 0.5 MG; Start 10/17/18 at 15:30 Famotidine (Pepcid Iv) 20 mg Q12 IV Last administered on 10/26/18 20:46; Admin Dose 20 MG; Start 10/17/18 at 21:00 Furosemide (Lasix) 40 mg BID DIURETICS IV Last administered on 10/27/18 05:46; Admin Dose 40 MG; Start 10/19/18 at 10:30 Nystatin (Nystatin Powder) 1 applic BID TOP Last administered on 10/26/18 20:46; Admin Dose 1 APPLIC; Start 10/19/18 at 21:00 Enoxaparin Sodium (Lovenox) 60 mg DAILY SC Last administered on 10/26/18 09:40; Admin Dose 60 MG; Start 10/21/18 at 09:00 Ipratropium [place] (Atrovent Hfa) 4 puff Q6H RESP THERAPY INH Last admini stered on 10/27/18 01:39; Admin Dose 4 PUFF; Start 10/20/18 at 20:00 Albuterol (Ventolin Hfa) 4 puff Q6H RESP THERAPY INH Last administered on 10/27/18 01:39; Admin Dose 4 PUFF; Start 10/20/18 at 20:00 Diagnostic Test (Pha) (Accu-Chek) 1 ea 02 XX Last administered on 10/27/18 02:22; Admin Dose 1 EA; Start 10/21/18 at 02:00 Insulin Glargine (Lantus) 40 units DAILY@2000 SC Last administered on 10/26/18 20:47; Admin Dose 40 UNITS; Start 10/20/18 at 20:00 Insulin Aspart (Novolog Insulin Pen) NOVOLOG *MILD* ALGORI... Q4 SC Last administered on 10/27/18at 05:50; Admin Dose 1 UNIT; Start 10/20/18 at 17:00 Miscellaneous Information 1 ea NOTE XX ; Start 10/20/18 at 16:30 Glucose (Glutose) 15 gm Q15M PRN PO DECREASED GLUCOSE; Start 10/20/18 at 16:30 Glucose (Glutose) 22.5 gm Q15M PRN PO DECREASED GLUCOSE; Start 10/20/18 at 16:30 Dextrose (D50w Syringe) 25 ml Q15M PRN IV DECREASED GLUCOSE; Start 10/20/18 at 16:30 Dextrose (D50w Syringe) 50 ml Q15M PRN IV DECREASED GLUCOSE; Start 10/20/18 at 16:30 Glucagon (Glucagen) 1 mg Q15M PRN IM DECREASED GLUCOSE; Start 10/20/18 at 16:30 Glucose (Glutose) 15 gm Q15M PRN BUCCAL DECREASED GLUCOSE; Start 10/20/18 at 16:30 IV Flush (NS 10 ml) 10 ml PRN PRN IV IV PROTOCOL; Start 10/20/18 at 16:30 Midazolam HCl 50 ml @ 1 mls/hr TITRATE IV Last administered on 10/27/18at 03:27; Admin Dose 6 MLS/HR; Start 10/22/18 at 02:30 Cefepime HCl 50 ml @ 100 mls/hr Q12 IVPB Last administered on 10/26/18at 20:47; Admin Dose 100 MLS/HR; Start 10/22/18 at 11:00 Fentanyl 1000 mcg/ Sodium Chloride 100 ml @ 2.5 mls/hr TITRATE IV Last administered on 10/27/18at 01:08; Admin Dose 10 MLS/HR; Start 10/22/18 at 11:30 Docusate Sodium (Colace Liquid Cup) 100 mg BID GTB Last administered on 10/26/18at 20:46; Admin Dose 100 MG; Start 10/22/18 at 21:00 Acetaminophen (Tylenol Tab) 650 mg Q6H PRN PO MILD PAIN(1-3)OR ELEVATED TEMP Last administered on 10/25/18at 06:33; Admin Dose 650 MG; Start 10/23/18 at 20:30 CLAUDIA TIDWELL MD Oct 27, 2018 08:58
[2018-10-27] MEDS: NYSTATIN 30 GM POWDER BTL TOP SCH ×2 (09:00→20:35)
--- NOTE | 2018-10-27 09:54 | CONS ---
Date/Time of Note Date/Time of Note DATE: 10/27/18 TIME: 09:52 Consult Date/Type/Reason Admit Date/Time Oct 17, 2018 at 14:17 Initial Consult Date 10/18/18 Type of Consultation: Pulm/CCM Subjective Patient remains on mechanical ventilation FiO2 of 80% PEEP of 18. Currently intubated sedated tube feeding as tolerated. Family at bedside. Chest x-ray shows ongoing ARDS/pulmonary edema. Objective Vital Signs Date Temp Pulse Resp B/P (MAP) Pulse Ox O2 O2 Flow FiO2 Time Delivery Rate 10/27/18 93 08:00 10/27/18 28 128/88 96 Mechanical 06:00 (101) Ventilator 10/27/18 80 05:53 10/27/18 98.4 04:00 Intake and Output 10/26/18 10/26/18 10/27/18 1515:00 23:00 07:00 IntakeIntake Total 1018 ml 954 ml 903 ml OutputOutput Total 640 ml 895 ml 735 ml BalanceBalance 378 ml 59 ml 168 ml Exam GENERAL: Morbidly obese gentleman orally intubated on mechanical ventilation. VITAL SIGNS: per chart NECK: Supple. No JVD or lymphadenopathy. CARDIAC EXAM: S1, S2. No added sounds or murmurs. CHEST: diminished air entry bilaterally ABDOMEN: Soft, nontender. No guarding or rebound. EXTREMITIES: No cyanosis, clubbing, edema +1 NEUROLOGIC: Generalized weakness. Results/Medications Result Diagram: 10/27/18 0436 10/27/18 0436 Results 24 hrs Laboratory Tests Test 10/26/18 13:43 10/26/18 16:37 10/26/18 20:43 10/27/18 00:46 Bedside Glucose 163 150 152 140 Test 10/27/18 04:36 10/27/18 04:40 10/27/18 05:00 10/27/18 05:14 White Blood Count 10.8 Red Blood Count 4.63 L Hemoglobin 12.6 L Hematocrit 42.8 Mean Corpuscular 92.4 Volume Mean Corpuscular 27.2 L Hemoglobin Mean Corpuscular 29.4 L Hemoglobin Concen t Red Cell 17.4 H Distribution Width Platelet Count 296 Mean Platelet 11.0 H Volume Immature 0.400 Granulocytes % Neutrophils % 58.3 Lymphocytes % 17.8 Monocytes % 15.8 H Eosinophils % 6.8 Basophils % 0.9 Nucleated Red 0.0 Blood Cells % Immature 0.040 H Granulocytes # Neutrophils # 6.3 Lymphocytes # 1.9 Monocytes # 1.7 H Eosinophils # 0.7 H Basophils # 0.1 Nucleated Red 0.0 Blood Cells # Sodium Level 141 Potassium Level 4.5 Chloride Level 94 L Carbon Dioxide 41 *H Level Anion Gap 6 Blood Urea 30 H Nitrogen Creatinine 0.57 L Est Glomerular > 60 Filtrat Rate mL/min Glucose Level 150 Calcium Level 9.2 Lactic Acid Level 1.4 Blood Gas Blood arterial Specimen Source Arterial Blood 10/27/2018 4:30:0 Date Drawn 0 AM Arterial Blood pH 7.350 (Temp corrected) Arterial Blood 85.0 *H pCO2 (Temp correct) Arterial Blood 79.8 L pO2 (Temp corrected) Arterial Blood 45.9 *H HCO3 Arterial Blood 15.8 H Base Excess Arterial Blood 94.9 L Oxygen Saturation Danilo Test ACCEPTAB Arterial Blood Right Radial Gas Puncture Site Arterial 0.6 Blood Carboxyhemo globin Arterial Blood 0.3 Methemoglobin Blood Gas A-a O2 401.4 H Differential Oxyhemoglobin 94.0 Percent Blood Gas 37.0 Temperature Blood Gas 28.0 Respiration Rate Blood Gas Actual 28 Respiration Rate Blood Gas VENT - AC Modality FiO2 80.0 Blood Gas Tidal 450.0 Volume Blood Gas Low 18.0 PEEP Setting Blood Gas 52.0 Inspiratory Pressure Blood Gas GAVINO CAMEJO Critical Value Read Back Blood Gas MR Notified Whom Blood Gas 10/27/2018 4:42:0 Notified Time 0 AM Bedside Glucose 144 Medications Current Medications IV Flush (NS 3 ml) 3 ml PER PROTOCOL IV ; Start 10/17/18 at 15:30 Hydromorphone HCl (Dilaudid) 0.5 mg Q4H PRN IV SEVERE PAIN LEVEL 7-10 Last administered on 10/20/18at 15:29; Admin Dose 0.5 MG; Start 10/17/18 at 15:30 Famotidine (Pepcid Iv) 20 mg Q12 IV Last administered on 10/26/18at 20:46; Admin Dose 20 MG; Start 10/17/18 at 21:00 Furosemide (Lasix) 40 mg BID DIURETICS IV Last administered on 10/27/18at 05:46; Admin Dose 40 MG; Start 10/19/18 at 10:30 Nystatin (Nystatin Powder) 1 applic BID TOP Last administered on 10/26/18at 20:46; Admin Dose 1 APPLIC; Start 10/19/18 at 21:00 Enoxaparin Sodium (Lovenox) 60 mg DAILY SC Last administered on 10/26/18at 09:40; Admin Dose 60 MG; Start 10/21/18 at 09:00 Ipratropium [place] (Atrovent Hfa) 4 puff Q6H RESP THERAPY INH Last administered on 10/27/18at 01:39; Admin Dose 4 PUFF; Start 10/20/18 at 20:00 Albuterol (Ventolin Hfa) 4 puff Q6H RESP THERAPY INH Last administered on at 01:39; Admin Dose 4 PUFF; Start 10/20/18 at 20:00 Diagnostic Test (Pha) (Accu-Chek) 1 ea 02 XX Last administered on 10/27/18at 02:22; Admin Dose 1 EA; Start 10/21/18 at 02:00 Insulin Glargine (Lantus) 40 units DAILY@2000 SC Last administered on 10/26/18at 20:47; Admin Dose 40 UNITS; Start 10/20/18 at 20:00 Insulin Aspart (Novolog Insulin Pen) NOVOLOG *MILD* ALGORI... Q4 SC Last administered on 10/27/18at 05:50; Admin Dose 1 UNIT; Start 10/20/18 at 17:00 Miscellaneous Information 1 ea NOTE XX ; Start 10/20/18 at 16:30 Glucose (Glutose) 15 gm Q15M PRN PO DECREASED GLUCOSE; Start 10/20/18 at 16:30 Glucose (Glutose) 22.5 gm Q15M PRN PO DECREASED GLUCOSE; Start 10/20/18 at 16:30 Dextrose (D50w Syringe) 25 ml Q15M PRN IV DECREASED GLUCOSE; Start 10/20/18 at 16:30 Dextrose (D50w Syringe) 50 ml Q15M PRN IV DECREASED GLUCOSE; Start 10/20/18 at 16:30 Glucagon (Glucagen) 1 mg Q15M PRN IM DECREASED GLUCOSE; Start 10/20/18 at 16:30 Glucose (Glutose) 15 gm Q15M PRN BUCCAL DECREASED GLUCOSE; Start 10/20/18 at 16:30 IV Flush (NS 10 ml) 10 ml PRN PRN IV IV PROTOCOL; Start 10/20/18 at 16:30 Midazolam HCl 50 ml @ 1 mls/hr TITRATE IV Last administered on 10/27/18at 03:27; Admin Dose 6 MLS/HR; Start 10/22/18 at 02:30 Cefepime HCl 50 ml @ 100 mls/hr Q12 IVPB Last administered on 10/26/18at 20:47; Admin Dose 100 MLS/HR; Start 10/22/18 at 11:00 Fentanyl 1000 mcg/ Sodium Chloride 100 ml @ 2.5 mls/hr TITRATE IV Last administered on 10/27/18at 01:08; Admin Dose 10 MLS/HR; Start 10/22/18 at 11:30 Docusate Sodium (Colace Liquid Cup) 100 mg BID GTB Last administered on 10/26/18at 20:46; Admin Dose 100 MG; Start 10/22/18 at 21:00 Acetaminophen (Tylenol Tab) 650 mg Q6H PRN PO MILD PAIN(1-3)OR ELEVATED TEMP Last administered on 10/25/18at 06:33; Admin Dose 650 MG; Start 10/23/18 at 20:30 Assessment/Plan Chief Complaint/Hosp Course Additional Assessment/Plan IMP: 1. Severe Hypoxemic Resp Failure--findings consistent with ARDS 2. Acute on chronic Hypoxemic and Hypercapnic Resp Failure 3. Morbid obesity with OHS 4. DM 5. FEN RECS: 1. Continue lung protective/open lung strategy with PEEP 18; lower FiO2 2. Follow ARDSnet guidelines with PEEP titration 3. Continue lasix IV 4. Follow I/O's 5. Daily sedation lowering 6. Steroid trial. 40 min cc time Case D/W RENAT[facility] BROWNING [facility] Oct 27, 2018 09:54
[2018-10-27] MEDS: DOCUSATE SODIUM 10 MG/ML (10ML CUP) GTB SCH ×2 (09:56→20:34)
[2018-10-27] MEDS: FAMOTIDINE 20 MG INJ IV SCH ×2 (09:56→20:34)
[2018-10-27] MEDS: CEFEPIME 2GM/50 ML (PMX) 50 ML IVPB SCH ×2 (09:57→20:35)
[2018-10-27] MEDS: ENOXAPARIN 60 MG/0.6 ML SYG SC SCH (10:14)
[2018-10-27] MEDS: METHYLPREDNISOLONE 40 MG INJ IV SCH ×2 (12:58→18:10)
[2018-10-27] MEDS ORDERED: INSULIN GLARGINE [LANTus] (100 UNITS/ML) SYG SC SCH (20:00)
[2018-10-28] VITALS (34 sets, daily range): BP systolic 113–140; BP diastolic 65–90; PULSE 77–105; RESP 0–33
[2018-10-28] MEDS: METHYLPREDNISOLONE 40 MG INJ IV SCH ×4 (01:07→17:26)
[2018-10-28] MEDS: INSULIN ASPART [NOVOLOG] 3 ML PEN SC SCH ×6 (01:09→20:38)
[2018-10-28] MEDS: IPRATROPIUM (HFA) 12.9 GM INHALER INH SCH ×4 (01:29→19:43)
[2018-10-28] MEDS: ALBUTEROL HFA 8 GM INHALER INH SCH ×4 (01:29→19:43)
[2018-10-28] MEDS: ACCU-CHEK XX SCH (01:57)
[2018-10-28] MEDS: MIDAZOLAM (DRIP) 50 mg/50 mL 50 ML IV SCH ×3 (04:09→18:28)
[2018-10-28] MEDS: FUROSEMIDE 40 MG INJ IV SCH ×2 (05:59→17:25)
[2018-10-28] MEDS: FENTAnyl 1,000 MCG in SOD CHLORIDE 0.9% 80 ML IV SCH ×2 (06:02→18:27)
[2018-10-28] MEDS: DOCUSATE SODIUM 10 MG/ML (10ML CUP) GTB SCH ×2 (08:50→20:37)
[2018-10-28] MEDS: CEFEPIME 2GM/50 ML (PMX) 50 ML IVPB SCH ×2 (08:50→20:36)
[2018-10-28] MEDS: ENOXAPARIN 60 MG/0.6 ML SYG SC SCH (08:54)
[2018-10-28] MEDS: NYSTATIN 30 GM POWDER BTL TOP SCH ×2 (08:55→20:37)
--- NOTE | 2018-10-28 09:03 | CONS ---
Date/Time of Note Date/Time of Note DATE: 10/28/18 TIME: 09:00 Assessment/Plan Assessment/Plan Assessment/Plan Ventilator setting; AC of 28, tidal volume 450, PEEP of 18, 70% FiO2. Patient is currently on fentanyl 100 mics per hour, Versed 6 mg/h. Chest x-ray showing bilateral pulmonary vascular congestion with cardiomegaly. Assessment and recommendations; 1 patient with history of morbid obesity admitted for respiratory failure with severe hypercapnia as well as CHF and bilateral pneumonia. Currently on appropr iate antimicrobial regimen as well as diuretic regimen. 2. Persistent hypoxemia, however FiO2 has been lowered to 70% with high PEEP requirement. 3. Likely chronic type II respiratory failure due to underlying obesity/hypoventilation syndrome. 4. History of diabetes. Decrease PEEP to 16. Obtain follow-up chest x-ray as well as ABG in 24 hours. Continue with supportive care. Prognosis is guarded. Once FiO2 has been down to an acceptable range, patient will require to have a tracheostomy performed. 35 minutes of critical care time was spent evaluating the patient. Result Diagram: 10/28/18 0400 10/28/18 0400 Results 24hrs Laboratory Tests Test 10/27/18 10:18 10/27/18 13:57 10/27/18 18:16 10/27/18 20:30 Bedside Glucose 142 237 H 210 233 H Test 10/27/18 23:51 10/28/18 04:00 10/28/18 04:09 10/28/18 07:00 Bedside Glucose 254 H 261 H White Blood Count 9.2 Red Blood Count 4.90 Hemoglobin 13.1 L Hematocrit 44.9 Mean Corpuscular 91.6 Volume Mean Corpuscular 26.7 L Hemoglobin Mean Corpuscular 29.2 L Hemoglobin Concen t Red Cell 17.5 H Distribution Width Platelet Count 333 Mean Platelet 11.2 H Volume Immature 0.500 H Granulocytes % Neutrophils % 76.2 Lymphocytes % 13.0 L Monocytes % 9.1 Eosinophils % 0.1 Basophils % 1.1 Nucleated Red 0.0 Blood Cells % Immature 0.050 H Granulocytes # Neutrophils # 7.0 Lymphocytes # 1.2 Monocytes # 0.8 Eosinophils # 0.0 Basophils # 0.1 Nucleated Red 0.0 Blood Cells # Sodium Level 143 Potassium Level 4.8 Chloride Level 94 L Carbon Dioxide 41 *H Level Anion Gap 8 Blood Urea 33 H Nitrogen Creatinine 0.63 Est Glomerular > 60 Filtrat Rate mL/min Glucose Level 292 #H Calcium Level 9.6 Phosphorus Level 4.7 Magnesium Level 2.3 Blood Gas Blood arterial Specimen Source Arterial Blood 10/28/2018 7:58:2 Date Drawn 1 AM Arterial Blood pH 7.347 L (Temp corrected) Arterial Blood 55.4 H pCO2 (Temp correct) Arterial Blood 69.9 L pO2 (Temp corrected) Arterial Blood 29.7 H HCO3 Arterial Blood 2.7 Base Excess Arterial Blood 92.0 L Oxygen Saturation Danilo Test ACCEPTAB Arterial Blood Right Radial Gas Puncture Site Arterial 0.9 Blood Carboxyhemo globin Arterial Blood 0.3 Methemoglobin Blood Gas A-a O2 369.7 H Differential Oxyhemoglobin 90.9 L Percent Blood Gas 37.0 Temperature Blood Gas 28.0 Respiration Rate Blood Gas Actual 28 Respiration Rate Blood Gas VENT - AC Modality FiO2 70.0 Blood Gas Tidal 450.0 Volume Blood Gas Low 18.0 PEEP Setting Blood Gas TM Notified Whom Blood Gas 10/28/2018 8:06:5 Notified Time 6 AM Test 10/28/18 08:56 Bedside Glucose 278 H Consultation Date/Type/Reason Admit Date/Time Oct 17, 2018 at 14:17 Initial Consult Date 10/18/18 Type of Consult Pulmonary/critical care Patient is a 52-year-old male who was brought into the hospital because of shor tness of breath. Patient was in respiratory failure and required intubation. ABG was done which showed severe hypercapnia. By the time I saw the patient, patient is orally intubated and sedated. History was obtained from medical record as well as from patient's sister who was present in the room. Past medical history; 1. Chronic renal insufficiency. 2. Morbid obesity. Likely underlying sleep apnea syndrome. 3. Diabetes. 4. Hypertension. Medications; reviewed. Patient is currently on insulin drip at 7 units/h, propofol 20 mics per kilogram per minute. Other medications were reviewed as well. Allergies; none. Social history; positive for alcohol abuse and smoking. Family history; he is single, has 3 children. Patient is with his sisters who take care of him. Occupational history; patient is on medical leave. Review of system; unable to be obtained. General exam; middle-aged male, morbidly obese, orally intubated, sedated, currently in no distress. 24 HR Interval Summary Free Text/Dictation Patient's condition remains critical. Still requiring high FiO2 for hypoxemia. Patient however has remained hemodynamically stable. General exam; middle-aged male, morbidly obese, orally intubated, sedated, currently in no distress. Exam/Review of Systems Vital Signs Vitals Vital Signs Date Temp Pulse Resp B/P (MAP) Pulse Ox O2 O2 Flow FiO2 Time Delivery Rate 10/28/18 89 0 128/81 83 Mechanical 08:00 (97) Ventilator 10/28/18 70 07:30 10/28/18 98.9 07:00 Intake and Output 10/27/18 10/27/18 10/28/18 1515:00 23:00 07:00 IntakeIntake Total 958 ml 871.0 ml 1015 ml OutputOutput Total 1050 ml 1310 ml 1020 ml BalanceBalance -92 ml -439.0 ml -5 ml Exam H EENT exam; supple neck, JVD difficult to see because of short neck. Orally intubated. Patient has fair dentition. No neck masses. Pupils are small michelle aterally. Chest exam; diminished breath sounds throughout. S1-S2 audible, no murmurs. Regular rhythm. Abdomen exam; soft, protuberant. Bowel sounds audible. Organomegaly difficult to assess. Extremity exam; chronic lower extremity changes bilaterally. Trace edema. COMBINATION MAN exam; patient is sedated. Medications Medications Current Medications IV Flush (NS 3 ml) 3 ml PER PROTOCOL IV ; Start 10/17/18 at 15:30 Hydromorphone HCl (Dilaudid) 0.5 mg Q4H PRN IV SEVERE PAIN LEVEL 7-10 Last administered on 10/20/18at 15:29; Admin Dose 0.5 MG; Start 10/17/18 at 15:30 Famotidine (Pepcid Iv) 20 mg Q12 IV Last administered on 10/27/18at 20:34; Admin Dose 20 MG; Start 10/17/18 at 21:00 Furosemide (Lasix) 40 mg BID DIURETICS IV Last administered on 10/28/18at 05:59; Admin Dose 40 MG; Start 10/19/18 at 10:30 Nystatin (Nystatin Powder) 1 applic BID TOP Last administered on 10/27/18at 20:35; Admin Dose 1 APPLIC; Start 10/19/18 at 21:00 Enoxaparin Sodium (Lovenox) 60 mg DAILY SC Last administered on 10/27/18at 10:14; Admin Dose 60 MG; Start 10/21/18 at 09:00 Ipratropium [place] (Atrovent Hfa) 4 puff Q6H RESP THERAPY INH Last administered on 10/28/18at 08:15; Admin Dose 4 PUFF; Start 10/20/18 at 20:00 Albuterol (Ventolin Hfa) 4 puff Q6H RESP THERAPY INH Last administered on 10/28/18at 08:15; Admin Dose 4 PUFF; Start 10/20/18 at 20:00 Diagnostic Test (Pha) (Accu-Chek) 1 ea 02 XX Last administered on 10/28/18at 01:57; Admin Dose 1 EA; Start 10/21/18 at 02:00 Miscellaneous Information 1 ea NOTE XX ; Start 10/20/18 at 16:30 Glucose (Glutose) 15 gm Q15M PRN PO DECREASED GLUCOSE; Start 10/20/18 at 16:30 Glucose (Glutose) 22.5 gm Q15M PRN PO DECREASED GLUCOSE; Start 10/20/18 at 16:30 Dextrose (D50w Syringe) 25 ml Q15M PRN IV DECREASED GLUCOSE; Start 10/20/18 at 16:30 Dextrose (D50w Syringe) 50 ml Q15M PRN IV DECREASED GLUCOSE; Start 10/20/18 at 16:30 Glucagon (Glucagen) 1 mg Q15M PRN IM DECREASED GLUCOSE; Start 10/20/18 at 16:30 Glucose (Glutose) 15 gm Q15M PRN BUCCAL DECREASED GLUCOSE; Start 10/20/18 at 16:30 IV Flush (NS 10 ml) 10 ml PRN PRN IV IV PROTOCOL; Start 10/20/18 at 16:30 Midazolam HCl 50 ml @ 1 mls/hr TITRATE IV Last administered on 10/28/18at 04:09; Admin Dose 6 MLS/HR; Start 10/22/18 at 02:30 Cefepime HCl 50 ml @ 100 mls/hr Q12 IVPB Last administered on 10/27/18at 20:35; Admin Dose 100 MLS/HR; Start 10/22/18 at 11:00 Fentanyl 1000 mcg/ Sodium Chloride 100 ml @ 2.5 mls/hr TITRATE IV Last administered on 10/28/18 06:02; Admin Dose 10 MLS/HR; Start 10/22/18 at 11:30 Docusate Sodium (Colace Liquid Cup) 100 mg BID GTB Last administered on 10/27/18at 20:34; Admin Dose 100 MG; Start 10/22/18 at 21:00 Acetaminophen (Tylenol Tab) 650 mg Q6H PRN PO MILD PAIN(1-3)OR ELEVATED TEMP Last administered on 10/25/18at 06:33; Admin Dose 650 MG; Start 10/23/18 at 20:30 Methylprednisolone Sodium Succinate (Solu-Medrol) 40 mg Q6 IV Last administered on 10/28/18at 05:59; Admin Dose 40 MG; Start 10/27/18 at 12:00 Insulin Glargine (Lantus) 43 units DAILY@2000 SC Last administered on 10/27/18at 20:36; Admin Dose 43 UNITS; Start 10/27/18 at 20:00 Insulin Aspart (Novolog Insulin Pen) NOVOLOG *MODERATE* ALGORI... Q4 SC Last administered on 10/28/18at 04:13; Admin Dose 8 UNIT; Start 10/27/18 at 21:00 ETTA BRANTLEY Oct 28, 2018 09:03
--- NOTE | 2018-10-28 09:14 | PN ---
Date/Time of Note Date/Time of Note DATE: 10/28/18 TIME: 09:14 Assessment/Plan VTE Prophylaxis Risk score (from Ns)>0 risk: 11 [place] [facility] [place] SCD contraindicated: other Pharmacological prophylaxis: LMWH Lines/Catheters IV Catheter Type (from Nrs): PICC Line Central line still needed: Yes Urinary Cath still in place: Yes Reason Cath still needed: skin wounds contaminated by urine Assessment/Plan Assessment/Plan 1. Acute hypercapnic and hypoxemic respiratory failure secondary to diastolic CHF and/or pneumonia with underlying OHS and hypercapnia - Pulmonology on board and appreciate consultation. Continue vent support with ARDS protocol. Weaning down PEEP and FIO2. Still with high FIO2 requirement and when more optimal, will proceed with trach placement - ABG noted with improvement in CO2 level - Continue on Cefepime - Continue Lasix 2. Sepsis with fevers and tachycardia likely secondary to pneumonia - Continue cefepime - Single blood culture is positive for coag negative staph but is likely a contaminant 3. Severe morbid obesity - Lifestyle changes 4. Diabetes - Will continue Lantus and ISS. Adjust as needed for glucose control 5. Disposition - Continue current management of vent settings per Pulmonology recommendations When FIO2 more optimal, will need trach placement Result Diagram: 10/28/18 0400 10/28/18 0400 Results 24hrs Laboratory Tests Test 10/27/18 10:18 10/27/18 13:57 10/27/18 18:16 10/27/18 20:30 Bedside Glucose 142 237 H 210 233 H Test 10/27/18 23:51 10/28/18 04:00 10/28/18 04:09 10/28/18 07:00 Bedside Glucose 254 H 261 H White Blood Count 9.2 Red Blood Count 4.90 Hemoglobin 13.1 L Hematocrit 44.9 Mean Corpuscular 91.6 Volume Mean Corpuscular 26.7 L Hemoglobin Mean Corpuscular 29.2 L Hemoglobin Concen t Red Cell 17.5 H Distribution Width Platelet Count 333 Mean Platelet 11.2 H Volume Immature 0.500 H Granulocytes % Neutrophils % 76.2 Lymphocytes % 13.0 L Monocytes % 9.1 Eosinophils % 0.1 Basophils % 1.1 Nucleated Red 0.0 Blood Cells % Immature 0.050 H Granulocytes # Neutrophils # 7.0 Lymphocytes # 1.2 Monocytes # 0.8 Eosinophils # 0.0 Basophils # 0.1 Nucleated Red 0.0 Blood Cells # Sodium Level 143 Potassium Level 4.8 Chloride Level 94 L Carbon Dioxide 41 *H Level Anion Gap 8 Blood Urea 33 H Nitrogen Creatinine 0.63 Est Glomerular > 60 Filtrat Rate mL/min Glucose Level 292 #H Calcium Level 9.6 Phosphorus Level 4.7 Magnesium Level 2.3 Blood Gas Blood arterial Specimen Source Arterial Blood 10/28/2018 7:58:2 Date Drawn 1 AM Arterial Blood pH 7.347 L (Temp corrected) Arterial Blood 55.4 H pCO2 (Temp correct) Arterial Blood 69.9 L pO2 (Temp corrected) Arterial Blood 29.7 H HCO3 Arterial Blood 2.7 Base Excess Arterial Blood 92.0 L Oxygen Saturation Danilo Test ACCEPTAB Arterial Blood Right Radial Gas Puncture Site Arterial 0.9 Blood Carboxyhemo globin Arterial Blood 0.3 Methemoglobin Blood Gas A-a O2 369.7 H Differential Oxyhemoglobin 90.9 L Percent Blood Gas 37.0 Temperature Blood Gas 28.0 Respiration Rate Blood Gas Actual 28 Respiration Rate Blood Gas VENT - AC Modality FiO2 70.0 Blood Gas Tidal 450.0 Volume Blood Gas Low 18.0 PEEP Setting Blood Gas TM Notified Whom Blood Gas 10/28/2018 8:06:5 Notified Time 6 AM Test 10/28/18 08:56 Bedside Glucose 278 H Subjective 24 Hr Interval Summary Free Text/Dictation Patient remains intubated and sedated. No acute overnight events. PEEP decreased this am. still with high FIO2 requirement Exam/Review of Systems Vital Signs Vitals Vital Signs Date Temp Pulse Resp B/P (MAP) Pulse Ox O2 O2 Flow FiO2 Time Delivery Rate 10/28/18 86 0 134/81 76 Mechanical 09:00 (98) Ventilator 10/28/18 70 07:30 10/28/18 98.9 07:00 Intake and Output 10/27/18 10/27/18 10/28/18 1515:00 23:00 07:00 IntakeIntake Total 958 ml 871.0 ml 1015 ml OutputOutput Total 1050 ml 1310 ml 1020 ml BalanceBalance -92 ml -439.0 ml -5 ml Exam General: Remains intubated and sedated. no acute distress Head: Normocephalic atraumatic Eyes: EOMI, pupils reactive to light Neck: Supple, nontender, midline Respiratory: Clear to auscultation bilaterally. diminished air entry. no wheezing or rhonchi Cardiovascular: regular rate and rhythm. no obvious murmurs Gastrointestinal: soft, non-tender to palpation, obese, bowel sounds heard. Skin: dryness to LE bilaterally with chronic skin changes Medications Medications Current Medications IV Flush (NS 3 ml) 3 ml PER PROTOCOL IV ; Start 10/17/18 at 15:30 Hydromorphone HCl (Dilaudid) 0.5 mg Q4H PRN IV SEVERE PAIN LEVEL 7-10 Last administered on 10/20/18 15:29; Admin Dose 0.5 MG; Start 10/17/18 at 15:30 Famotidine (Pepcid Iv) 20 mg Q12 IV Last administered on 10/27/18 20:34; Admin Dose 20 MG; Start 10/17/18 at 21:00 Furosemide (Lasix) 40 mg BID DIURETICS IV Last administered on 10/28/18 05:59; Admin Dose 40 MG; Start 10/19/18 at 10:30 Nystatin (Nystatin Powder) 1 applic BID TOP Last administered on 10/28/18 08:55; Admin Dose 1 APPLIC; Start 10/19/18 at 21:00 Enoxaparin Sodium (Lovenox) 60 mg DAILY SC Last administered on 10/28/18 08:54; Admin Dose 60 MG; Start 10/21/18 at 09:00 Ipratropium [place] (Atrovent Hfa) 4 puff Q6H RESP THERAPY INH Last administered on 10/28/18 08:15; Admin Dose 4 PUFF; Start 10/20/18 at 20:00 Albuterol (Ventolin Hfa) 4 puff Q6H RESP THERAPY INH Last administered on 10/28/18 08:15; Admin Dose 4 PUFF; Start 10/20/18 at 20:00 Diagnostic Test (Pha) (Accu-Chek) 1 ea 02 XX Last administered on 10/28/18 01:57; Admin Dose 1 EA; Start 10/21/18 at 02:00 Miscellaneous Information 1 ea NOTE XX ; Start 10/20/18 at 16:30 Glucose (Glutose) 15 gm Q15M PRN PO DECREASED GLUCOSE; Start 10/20/18 at 16:30 Glucose (Glutose) 22.5 gm Q15M PRN PO DECREASED GLUCOSE; Start 10/20/18 at 16:30 Dextrose (D50w Syringe) 25 ml Q15M PRN IV DECREASED GLUCOSE; Start 10/20/18 at 16:30 Dextrose (D50w Syringe) 50 ml Q15M PRN IV DECREASED GLUCOSE; Start 10/20/18 at 16:30 Glucagon (Glucagen) 1 mg Q15M PRN IM DECREASED GLUCOSE; Start 10/20/18 at 16:30 Glucose (Glutose) 15 gm Q15M PRN BUCCAL DECREASED GLUCOSE; Start 10/20/18 at 16:30 IV Flush (NS 10 ml) 10 ml PRN PRN IV IV PROTOCOL; Start 10/20/18 at 16:30 Midazolam HCl 50 ml @ 1 mls/hr TITRATE IV Last administered on 10/28/18at 04:09; Admin Dose 6 MLS/HR; Start 10/22/18 at 02:30 Cefepime HCl 50 ml @ 100 mls/hr Q12 IVPB Last administered on 10/28/18at 08:50; Admin Dose 100 MLS/HR; Start 10/22/18 at 11:00 Fentanyl 1000 mcg/ Sodium Chloride 100 ml @ 2.5 mls/hr TITRATE IV Last administered on 10/28/18at 06:02; Admin Dose 10 MLS/HR; Start 10/22/18 at 11:30 Docusate Sodium (Colace Liquid Cup) 100 mg BID GTB Last administered on 10/28/18at 08:50; Admin Dose 100 MG; Start 10/22/18 at 21:00 Acetaminophen (Tylenol Tab) 650 mg Q6H PRN PO MILD PAIN(1-3)OR ELEVATED TEMP Last administered on 10/25/18at 06:33; Admin Dose 650 MG; Start 10/23/18 at 20:30 Methylprednisolone Sodium Succinate (Solu-Medrol) 40 mg Q6 IV Last administered on 10/28/18at 05:59; Admin Dose 40 MG; Start 10/27/18 at 12:00 Insulin Glargine (Lantus) 43 units DAILY@2000 SC Last administered on 10/27/18at 20:36; Admin Dose 43 UNITS; Start 10/27/18 at 20:00 Insulin Aspart (Novolog Insulin Pen) NOVOLOG *MODERATE* ALGORI... Q4 SC Last administered on 10/28/18at 08:57; Admin Dose 8 UNIT; Start 10/27/18 at 21:00 CLAUDIA TIDWELL MD Oct 28, 2018 09:14
[2018-10-28] MEDS: FAMOTIDINE 20 MG INJ IV SCH ×2 (13:28→20:37)
[2018-10-28] MEDS ORDERED: INSULIN GLARGINE [LANTus] (100 UNITS/ML) SYG SC SCH (20:00)
[2018-10-28] MEDS ORDERED: METOCLOPRAMIDE 10 MG INJ IV ONE (22:00)
[2018-10-28] MEDS ORDERED: LORAZEPAM 2 MG INJ IV STA (23:21)
[2018-10-29] VITALS (39 sets, daily range): BP systolic 125–151; BP diastolic 74–100; PULSE 61–174; RESP 0–28
[2018-10-29] MEDS: METHYLPREDNISOLONE 40 MG INJ IV SCH ×5 (00:05→23:50)
[2018-10-29] MEDS: MIDAZOLAM (DRIP) 50 mg/50 mL 50 ML IV SCH ×5 (00:05→20:57)
[2018-10-29] MEDS: INSULIN ASPART [NOVOLOG] 3 ML PEN SC SCH ×6 (00:09→21:42)
[2018-10-29] MEDS ORDERED: LORAZEPAM 2 MG INJ IV STA (00:22)
[2018-10-29] MEDS: ACCU-CHEK XX SCH (02:54)
[2018-10-29] MEDS: IPRATROPIUM (HFA) 12.9 GM INHALER INH SCH ×4 (03:12→19:45)
[2018-10-29] MEDS: ALBUTEROL HFA 8 GM INHALER INH SCH ×4 (03:12→19:44)
[2018-10-29] MEDS: FENTAnyl 1,000 MCG in SOD CHLORIDE 0.9% 80 ML IV SCH ×2 (04:27→17:14)
[2018-10-29] MEDS: FUROSEMIDE 40 MG INJ IV SCH ×2 (05:24→18:07)
[2018-10-29] MEDS: DOCUSATE SODIUM 10 MG/ML (10ML CUP) GTB SCH ×2 (09:25→21:39)
[2018-10-29] MEDS: FAMOTIDINE 20 MG INJ IV SCH ×2 (09:25→21:40)
[2018-10-29] MEDS: CEFEPIME 2GM/50 ML (PMX) 50 ML IVPB SCH ×2 (09:25→21:40)
[2018-10-29] MEDS: ENOXAPARIN 60 MG/0.6 ML SYG SC SCH (09:30)
[2018-10-29] MEDS: NYSTATIN 30 GM POWDER BTL TOP SCH ×2 (09:32→21:39)
--- NOTE | 2018-10-29 09:42 | CONS ---
Assessment/Plan Assessment/Plan Assessment/Plan Chest x-ray was reviewed from today which again showing bilateral infiltrative changes with pulmonary edema. Difficult to rule out superimposed pneumonia. Ventilator setting; AC of 28, tidal volume 450, PEEP of 14, 70% FiO2. Patient is currently on fentanyl at 100 mics per hour, Versed 10 mg/h. Assessment and recommendations; 1. Patient admitted with acute on chronic hypoxemic and hypercapnic respiratory failure due to underlying morbid obesity with likely underlying sleep apnea. 2. CHF with superimposed pneumonia. Still requiring fairly high FiO2 and high PEEP. PEEP however has been weaned down from 18-14. 3. History of diabetes. 4. Persistent hypercapnia despite maximal ventilation. Continue current supportive care. Resume tube feeding at a lower rate. Patient will need to have a tracheostomy performed once clinically stable, currently on high PEEP and high FiO2 to facilitate tracheostomy. Overall prognosis though is still guarded. 35 minutes of critical care time was spent evaluating the patient. Result Diagram: 10/28/18 0400 10/28/18 0400 Results 24hrs Laboratory Tests Test 10/28/18 14:24 10/28/18 17:14 10/28/18 20:32 10/28/18 23:49 Bedside Glucose 273 H 262 H 289 H 307 H Test 10/29/18 02:00 10/29/18 04:23 10/29/18 07:00 10/29/18 09:29 Blood Gas Blood arterial Blood arterial Specimen Source Arterial Blood 10/29/2018 2:10: 10/29/2018 7:05: Date Drawn 51 AM 00 AM Arterial Blood 7.276 *L 7.406 pH (Temp corrected) Arterial Blood 101.2 *H 72.7 H pCO2 (Temp correct) Arterial Blood 173.7 H 73.7 L pO2 (Temp corrected) Arterial Blood 46.1 *H 44.6 *H HCO3 Arterial Blood 14.0 H 16.0 H Base Excess Arterial Blood 98.9 H 94.3 L Oxygen Saturatio n Danilo Test ACCEPTAB ACCEPTAB Arterial Blood Right Radial Left Radial Gas Puncture Site Arterial 0.6 0.5 Blood Carboxyhem oglobin Arterial Blood 0.4 0.2 Methemoglobin Blood Gas A-a O2 438.1 H 347.3 H Differential Oxyhemoglobin 97.9 93.6 Percent Blood Gas 37.0 37.0 Temperature Blood Gas 28.0 28.0 Respiration Rate Blood Gas Actual 28 28 Respiration Rate Blood Gas VENT - PC VENT - AC Modality FiO2 100.0 70.0 Blood Gas 1.0 Inspiratory Time Blood Gas Low 14.0 14.0 PEEP Setting Blood Gas 49.0 Inspiratory Pressure Blood Gas Jose PAIZ RN, RN Critical Value Read Back Blood Gas D ROB RILEY TM Notified Whom Blood Gas 10/29/2018 2:21: 10/29/2018 7:33: Notified Time 45 AM 00 AM Bedside Glucose 240 H 217 Blood Gas Tidal 450.0 Volume Consultation Date/Type/Reason Admit Date/Time Oct 17, 2018 at 14:17 Initial Consult Date 10/18/18 Type of Consult Pulmonary/critical care Patient is a 52-year-old male who was brought into the hospital because of shortness of breath. Patient was in respiratory failure and required intubation. ABG was done which showed severe hypercapnia. By the time I saw the patient, patient is orally intubated and sedated. History was obtained from medical record as well as from patient's sister who was present in the room. Past medical history; 1. Chronic renal insufficiency. 2. Morbid obesity. Likely underlying sleep apnea syndrome. 3. Diabetes. 4. Hypertension. Medications; reviewed. Patient is currently on insulin drip at 7 units/h, pro pofol 20 mics per kilogram per minute. Other medications were reviewed as well. Allergies; none. Social history; positive for alcohol abuse and smoking. Family history; he is single, has 3 children. Patient is with his sisters who take care of him. Occupational history; patient is on medical leave. Review of system; unable to be obtained. General exam; middle-aged male, morbidly obese, orally intubated, sedated, currently in no distress. 24 HR Interval Summary Free Text/Dictation Patient's condition remains critical. Still requiring high FiO2 at 70%. Patien t however has remained hemodynamically stable. General exam; middle-aged male, morbidly obese, orally intubated, sedated, currently in no distress. Exam/Review of Systems Vital Signs Vitals Vital Signs Date Temp Pulse Resp B/P (MAP) Pulse Ox O2 O2 Flow FiO2 Time Delivery Rate 10/29/18 76 08:00 10/29/18 0 131/83 90 Mechanical 06:00 (99) Ventilator 10/29/18 70 05:40 10/29/18 98.7 04:00 Intake and Output 10/28/18 10/28/18 10/29/18 1515:00 23:00 07:00 IntakeIntake Total 910 ml 666.5 ml 129 ml OutputOutput Total 1025 ml 870 ml 1180 ml BalanceBalance -115 ml -203.5 ml -1051 ml Exam HEENT exam; supple neck, JVD difficult to see because of short neck. Patient has fair dentition. Orally intubated. No neck masses. Pupils are small bilaterally. Chest exam; diminished breath sounds throughout. S1-S2 audible, no murmurs. Regular rhythm. Abdomen exam; soft, protuberant. No organomegaly. Bowel sounds audible. Extremity exam; chronic lower extremity skin changes with trace edema. DEPUTY SHERIFF CHIEF exam; patient is sedated. Medications Medications Current Medications IV Flush (NS 3 ml) 3 ml PER PROTOCOL IV ; Start 10/17/18 at 15:30 Hydromorphone HCl (Dilaudid) 0.5 mg Q4H PRN IV SEVERE PAIN LEVEL 7-10 Last administered on 10/20/18at 15:29; Admin Dose 0.5 MG; Start 10/17/18 at 15:30 Famotidine (Pepcid Iv) 20 mg Q12 IV Last administered on 10/29/18at 09:25; Admin Dose 20 MG; Start 10/17/18 at 21:00 Furosemide (Lasix) 40 mg BID DIURETICS IV Last administered on 10/29/18at 05:24; Admin Dose 40 MG; Start 10/19/18 at 10:30 Nystatin (Nystatin Powder) 1 applic BID TOP Last administered on 10/29/18at 0 9:32; Admin Dose 1 APPLIC; Start 10/19/18 at 21:00 Enoxaparin Sodium (Lovenox) 60 mg DAILY SC Last administered on 10/29/18 09:30; Admin Dose 60 MG; Start 10/21/18 at 09:00 Ipratropium [place] (Atrovent Hfa) 4 puff Q6H RESP THERAPY INH Last administered on 10/29/18 08:18; Admin Dose 4 PUFF; Start 10/20/18 at 20:00 Albuterol (Ventolin Hfa) 4 puff Q6H RESP THERAPY INH Last administered on 10/08 08:18; Admin Dose 4 PUFF; Start 10/20/18 at 20:00 Diagnostic Test (Pha) (Accu-Chek) 1 ea 02 XX Last administered on 10/29/18at 02:54; Admin Dose 1 EA; Start 10/21/18 at 02:00 Miscellaneous Information 1 ea NOTE XX ; Start 10/20/18 at 16:30 Glucose (Glutose) 15 gm Q15M PRN PO DECREASED GLUCOSE; Start 10/20/18 at 16:30 Glucose (Glutose) 22.5 gm Q15M PRN PO DECREASED GLUCOSE; Start 10/20/18 at 16:30 Dextrose (D50w Syringe) 25 ml Q15M PRN IV DECREASED GLUCOSE; Start 10/20/18 at 16:30 Dextrose (D50w Syringe) 50 ml Q15M PRN IV DECREASED GLUCOSE; Start 10/20/18 at 16:30 Glucagon (Glucagen) 1 mg Q15M PRN IM DECREASED GLUCOSE; Start 10/20/18 at 16:30 Glucose (Glutose) 15 gm Q15M PRN BUCCAL DECREASED GLUCOSE; Start 10/20/18 at 16:30 IV Flush (NS 10 ml) 10 ml PRN PRN IV IV PROTOCOL; Start 10/20/18 at 16:30 Midazolam HCl 50 ml @ 1 mls/hr TITRATE IV Last administered on 10/29/18at 05:24; Admin Dose 10 MLS/HR; Start 10/22/18 at 02:30 Cefepime HCl 50 ml @ 100 mls/hr Q12 IVPB Last administered on 10/29/18 09:25; Admin Dose 100 MLS/HR; Start 10/22/18 at 11:00 Fentanyl 1000 mcg/ Sodium Chloride 100 ml @ 2.5 mls/hr TITRATE IV Last administered on 10/29/18 04:27; Admin Dose 10 MLS/HR; Start 10/22/18 at 11:30 Docusate Sodium (Colace Liquid Cup) 100 mg BID GTB Last administered on 10/29/18at 09:25; Admin Dose 100 MG; Start 10/22/18 at 21:00 Acetaminophen (Tylenol Tab) 650 mg Q6H PRN PO MILD PAIN(1-3)OR ELEVATED TEMP Last administered on 10/25/18at 06:33; Admin Dose 650 MG; Start 10/23/18 at 20:30 Methylprednisolone Sodium Succinate (Solu-Medrol) 40 mg Q6 IV Last administered on 10/29/18at 05:24; Admin Dose 40 MG; Start 10/27/18 at 12:00 Insulin Aspart (Novolog Insulin Pen) NOVOLOG *MODERATE* ALGORI... Q4 SC Last administered on 10/29/18at 09:31; Admin Dose 4 UNIT; Start 10/27/18 at 21:00 Insulin Glargine (Lantus) 60 units DAILY@2000 SC ; Start 10/29/18 at 20:00 Date/Time of Note Date/Time of Note DATE: 10/29/18 TIME: 09:39 ETTA BRANTLEY Oct 29, 2018 09:42
--- NOTE | 2018-10-29 15:06 | PN ---
Date/Time of Note Date/Time of Note DATE: 10/29/18 TIME: 15:01 Assessment/Plan VTE Prophylaxis Risk score (from Nsg)>0 risk: 12 SCD applied (from Nsg): Yes Pharmacological prophylaxis: LMWH Lines/Catheters IV Catheter Type (from Nrsg): PICC Line Central line still needed: Yes Urinary Cath still in place: Yes Reason Cath still needed: skin wounds contaminated by urine Assessment/Plan Assessment/Plan 1. Acute hypercapnic and hypoxemic respiratory failure secondary to diastolic CHF and/or pneumonia with underlying OHS and hypercapnia - Patient still on too high PEEP and O2 requirement for transition to trach - Pulmonology on board and appreciate consultation. Continue vent support with ARDS protocol. Weaning down PEEP and FIO2 - ABG noted - Continue on Cefepime - Continue Lasix 2. Sepsis with fevers and tachycardia likely secondary to pneumonia - Continue cefepime - Single blood culture is positive for coag negative staph but is likely a contaminant 3. Severe morbid obesity - Lifestyle changes 4. Diabetes - Adjusted Lantus for better control 5. Disposition - Continue current management of vent settings per Pulmonology recommendations When FIO2 more optimal, will need trach/PEG placement Result Diagram: 10/28/18 0400 10/28/18 0400 Results 24hrs Laboratory Tests Test 10/28/18 17:14 10/28/18 20:32 10/28/18 23:49 10/29/18 02:00 Bedside Glucose 262 H 289 H 307 H Blood Gas Blood arterial Specimen Source Arterial Blood 10/29/2018 2:10: Date Drawn 51 AM Arterial Blood 7.276 *L pH (Temp corrected) Arterial Blood 101.2 *H pCO2 (Temp correct) Arterial Blood 173.7 H pO2 (Temp corrected) Arterial Blood 46.1 *H HCO3 Arterial Blood 14.0 H Base Excess Arterial Blood 98.9 H Oxygen Saturatio n Danilo Test ACCEPTAB Arterial Blood Right Radial Gas Puncture Site Arterial 0.6 Blood Carboxyhem oglobin Arterial Blood 0.4 Methemoglobin Blood Gas A-a O2 438.1 H Differential Oxyhemoglobin 97.9 Percent Blood Gas 37.0 Temperature Blood Gas 28.0 Respiration Rate Blood Gas Actual 28 Respiration Rate Blood Gas VENT - PC Modality FiO2 100.0 Blood Gas 1.0 Inspiratory Time Blood Gas Low 14.0 PEEP Setting Blood Gas 49.0 Inspiratory Pressure Blood Gas Jose PAIZ RN Critical Value Read Back Blood Gas D 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 Whom Blood Gas 10/29/2018 2:21: Notified Time 45 AM Test 10/29/18 04:23 10/29/18 07:00 10/29/18 09:29 Bedside Glucose 240 H 217 Blood Gas Blood arterial Specimen Source Arterial Blood 10/29/2018 7:05: Date Drawn 00 AM Arterial Blood 7.406 pH (Temp corrected) Arterial Blood 72.7 H pCO2 (Temp correct) Arterial Blood 73.7 L pO2 (Temp corrected) Arterial Blood 44.6 *H HCO3 Arterial Blood 16.0 H Base Excess Arterial Blood 94.3 L Oxygen Saturatio n Danilo Test ACCEPTAB Arterial Blood Left Radial Gas Puncture Site Arterial 0.5 Blood Carboxyhem oglobin Arterial Blood 0.2 Methemoglobin Blood Gas A-a O2 347.3 H Differential Oxyhemoglobin 93.6 Percent Blood Gas 37.0 Temperature Blood Gas 28.0 Respiration Rate Blood Gas Actual 28 Respiration Rate Blood Gas VENT - AC Modality FiO2 70.0 Blood Gas Tidal 450.0 Volume Blood Gas Low 14.0 PEEP Setting Blood Gas KAT CAMEJO Critical Value Read Back Blood Gas TM Notified Whom Blood Gas 10/29/2018 7:33: Notified Time 00 AM Subjective 24 Hr Interval Summary Free Text/Dictation Patient still remains intubated and sedated with high PEEP and O2 requirements. Consent already obtained for PEG/Trach when vent setting more optimal. Exam/Review of Systems Vital Signs Vitals Vital Signs Date Temp Pulse Resp B/P (MAP) Pulse Ox O2 O2 Flow FiO2 Time Delivery Rate 10/29/18 99.2 75 27 139/89 90 Mechanical 12:00 (106) Ventilator 10/29/18 70 11:20 Intake and Output 10/28/18 10/28/18 10/29/18 1515:00 23:00 07:00 IntakeIntake Total 910 ml 666.5 ml 144 ml OutputOutput Total 1025 ml 870 ml 1305 ml BalanceBalance -115 ml -203.5 ml -1161 ml Exam General: Remains intubated and sedated. no acute distress Eyes: EOMI, pupils reactive to light Neck: Supple Respiratory: Clear to auscultation bilaterally. diminished air entry. no wheezing or rhonchi Cardiovascular: regular rate and rhythm. no obvious murmurs Gastrointestinal: soft, non-tender to palpation, morbdily obese, bowel sounds heard. Skin: dryness to LE bilaterally with chronic skin changes Medications Medications Current Medications IV Flush (NS 3 ml) 3 ml PER PROTOCOL IV ; Start 10/17/18 at 15:30 Hydromorphone HCl (Dilaudid) 0.5 mg Q4H PRN IV SEVERE PAIN LEVEL 7-10 Last administered on 10/20/18at 15:29; Admin Dose 0.5 MG; Start 10/17/18 at 15:30 Famotidine (Pepcid Iv) 20 mg Q12 IV Last administered on 10/29/18 09:25; Admin Dose 20 MG; Start 10/17/18 at 21:00 Furosemide (Lasix) 40 mg BID DIURETICS IV Last administered on 10/29/18 05:24; Admin Dose 40 MG; Start 10/19/18 at 10:30 Nystatin (Nystatin Powder) 1 applic BID TOP Last administered on 10/29/18 09:32; Admin Dose 1 APPLIC; Start 10/19/18 at 21:00 Enoxaparin Sodium (Lovenox) 60 mg DAILY SC Last administered on 10/29/18at 0 9:30; Admin Dose 60 MG; Start 10/21/18 at 09:00 Ipratropium [place] (Atrovent Hfa) 4 puff Q6H RESP THERAPY INH Last administered on 10/29/18at 14:59; Admin Dose 4 PUFF; Start 10/20/18 at 20:00 Albuterol (Ventolin Hfa) 4 puff Q6H RESP THERAPY INH Last administered on 10/29/18at 15:00; Admin Dose 4 PUFF; Start 10/20/18 at 20:00 Diagnostic Test (Pha) (Accu-Chek) 1 ea 02 XX Last administered on 10/29/18at 02:54; Admin Dose 1 EA; Start 10/21/18 at 02:00 Miscellaneous Information 1 ea NOTE XX ; Start 10/20/18 at 16:30 Glucose (Glutose) 15 gm Q15M PRN PO DECREASED GLUCOSE; Start 10/20/18 at 16:30 Glucose (Glutose) 22.5 gm Q15M PRN PO DECREASED GLUCOSE; Start 10/20/18 at 16:30 Dextrose (D50w Syringe) 25 ml Q15M PRN IV DECREASED GLUCOSE; Start 10/20/18 at 16:30 Dextrose (D50w Syringe) 50 ml Q15M PRN IV DECREASED GLUCOSE; Start 10/20/18 at 16:30 Glucagon (Glucagen) 1 mg Q15M PRN IM DECREASED GLUCOSE; Start 10/20/18 at 16:30 Glucose (Glutose) 15 gm Q15M PRN BUCCAL DECREASED GLUCOSE; Start 10/20/18 at 16:30 IV Flush (NS 10 ml) 10 ml PRN PRN IV IV PROTOCOL; Start 10/20/18 at 16:30 Midazolam HCl 50 ml @ 1 mls/hr TITRATE IV Last administered on 10/29/18 11:29; Admin Dose 10 MLS/HR; Start 10/22/18 at 02:30 Cefepime HCl 50 ml @ 100 mls/hr Q12 IVPB Last administered on 10/29/18 09:25; Admin Dose 100 MLS/HR; Start 10/22/18 at 11:00 Fentanyl 1000 mcg/ Sodium Chloride 100 ml @ 2.5 mls/hr TITRATE IV Last administered on 10/29/18 04:27; Admin Dose 10 MLS/HR; Start 10/22/18 at 11:30 Docusate Sodium (Colace Liquid Cup) 100 mg BID GTB Last administered on 10/29/18 09:25; Admin Dose 100 MG; Start 10/22/18 at 21:00 Acetaminophen (Tylenol Tab) 650 mg Q6H PRN PO MILD PAIN(1-3)OR ELEVATED TEMP Last administered on 10/25/18 06:33; Admin Dose 650 MG; Start 10/23/18 at 20:30 Methylprednisolone Sodium Succinate (Solu-Medrol) 40 mg Q6 IV Last administered on 10/29/18 11:37; Admin Dose 40 MG; Start 10/27/18 at 12:00 Insulin Aspart (Novolog Insulin Pen) NOVOLOG *MODERATE* ALGORI... Q4 SC Last administered on 10/29/18 09:31; Admin Dose 4 UNIT; Start 10/27/18 at 21:00 Insulin Glargine (Lantus) 60 units DAILY@2000 SC ; Start 10/29/18 at 20:00 CLAUDIA TIDWELL MD Oct 29, 2018 15:06
[2018-10-29] MEDS: INSULIN GLARGINE [LANTus] (100 UNITS/ML) SYG SC SCH (20:28)
[2018-10-30] VITALS (33 sets, daily range): BP systolic 115–163; BP diastolic 66–98; PULSE 59–110; RESP 0–28
[2018-10-30] MEDS: FENTAnyl 1,000 MCG in SOD CHLORIDE 0.9% 80 ML IV SCH ×3 (00:47→21:22)
[2018-10-30] MEDS: INSULIN ASPART [NOVOLOG] 3 ML PEN SC SCH ×6 (01:10→21:21)
[2018-10-30] MEDS: IPRATROPIUM (HFA) 12.9 GM INHALER INH SCH ×5 (01:27→20:45)
[2018-10-30] MEDS: ALBUTEROL HFA 8 GM INHALER INH SCH ×5 (01:27→20:45)
[2018-10-30] MEDS: MIDAZOLAM (DRIP) 50 mg/50 mL 50 ML IV SCH ×5 (01:44→23:03)
[2018-10-30] MEDS: ACCU-CHEK XX SCH (02:00)
[2018-10-30] MEDS: METHYLPREDNISOLONE 40 MG INJ IV SCH ×4 (05:59→23:46)
[2018-10-30] MEDS: FUROSEMIDE 40 MG INJ IV SCH ×2 (05:59→17:08)
[2018-10-30] MEDS: DOCUSATE SODIUM 10 MG/ML (10ML CUP) GTB SCH ×2 (08:01→21:18)
[2018-10-30] MEDS: NYSTATIN 30 GM POWDER BTL TOP SCH ×2 (08:04→21:20)
[2018-10-30] MEDS: FAMOTIDINE 20 MG INJ IV SCH ×2 (08:04→21:18)
[2018-10-30] MEDS: ENOXAPARIN 60 MG/0.6 ML SYG SC SCH (08:06)
[2018-10-30] MEDS: CEFEPIME 2GM/50 ML (PMX) 50 ML IVPB SCH ×2 (08:07→21:18)
--- NOTE | 2018-10-30 08:46 | CONS ---
Assessment/Plan Assessment/Plan Assessment/Plan Ventilator setting; AC of 28, tidal volume 450, PEEP of 14, 70% FiO2. Chest x-ray showing chronic appearing interstitial changes. With very minimal pulmonary vascular congestion. Patient is currently on Versed 10 mg/h. Fentanyl 100 mics per hour. Assessment and recommendations; 1. Patient admitted with recurrent hypoxemic and hypercapnic respiratory failure due to underlying morbid obesity with likely underlying sleep apnea/obesity hypoventilation syndrome. 2. CHF with likely superimposed pneumonia. 3. History of diabetes. Continue current supportive care. Patient will need to have a tracheostomy performed once FiO2 is down to an acceptable range. Obtain follow-up chest x- ray 24 hours. Prognosis is guarded. Result Diagram: 10/30/18 0459 10/30/18 0459 Results 24hrs Laboratory Tests Test 10/29/18 09:29 10/29/18 15:20 10/29/18 17:18 10/29/18 18:03 Bedside Glucose 217 216 227 H Sodium Level 144 Potassium Level 4.6 Chloride Level 94 L Carbon Dioxide Level 44 *H Anion Gap 6 Blood Urea Nitrogen 40 H Creatinine 0.63 Est Glomerular > 60 Filtrat Rate mL/min Glucose Level 233 H Calcium Level 9.9 Magnesium Level 2.2 Test 10/29/18 20:26 10/29/18 21:38 10/30/18 01:07 10/30/18 04:53 Bedside Glucose 196 214 232 H 207 Test 10/30/18 04:59 10/30/18 08:03 White Blood Count 10.6 Red Blood Count 5.13 Hemoglobin 13.9 L Hematocrit 45.7 Mean Corpuscular 89.1 Volume Mean Corpuscular 27.1 L Hemoglobin Mean Corpuscular 30.4 L Hemoglobin Concent Red Cell 17.5 H Distribution Width Platelet Count 261 # Mean Platelet Volume 12.3 H Immature 0.700 H Granulocytes % Neutrophils % 77.6 H Lymphocytes % 12.7 L Monocytes % 8.3 Eosinophils % 0.2 Basophils % 0.5 Nucleated Red Blood 0.0 Cells % Immature 0.070 H Granulocytes # Neutrophils # 8.2 H Lymphocytes # 1.3 Monocytes # 0.9 Eosinophils # 0.0 Basophils # 0.1 Nucleated Red Blood 0.0 Cells # Sodium Level 146 H Potassium Level 4.7 Chloride Level 95 L Carbon Dioxide Level 39 H Anion Gap 12 Blood Urea Nitrogen 43 H Creatinine 0.57 L Glucose Level 236 H Calcium Level 9.9 Phosphorus Level 5.9 H Magnesium Level 2.2 Albumin 3.3 Bedside Glucose 238 H Consultation Date/Type/Reason Admit Date/Time Oct 17, 2018 at 14:17 Initial Consult Date 10/18/18 Type of Consult Pulmonary/critical care Patient is a 52-year-old male who was brought into the hospital because of shortness of breath. Patient was in respiratory failure and required intubation. ABG was done which showed severe hypercapnia. By the time I saw the patient, patient is orally intubated and sedated. History was obtained from medical record as well as from patient's sister who was present in the room. Past medical history; 1. Chronic renal insufficiency. 2. Morbid obesity. Likely underlying sleep apnea syndrome. 3. Diabetes. 4. Hypertension. Medications; reviewed. Patient is currently on insulin drip at 7 units/h, propofol 20 mics per kilogram per minute. Other medications were reviewed as well. Allergies; none. Social history; positive for alcohol abuse and smoking. Family history; he is single, has 3 children. Patient is with his sisters who take care of him. Occupational history; patient is on medical leave. Review of system; unable to be obtained. General exam; middle-aged male, morbidly obese, orally intubated, sedated, currently in no distress. 24 HR Interval Summary Free Text/Dictation Patient's condition remains critical. Still requiring fairly high FiO2. Pat ient however has remained hemodynamically stable. General exam; middle-aged male, morbidly obese, orally intubated, sedated, currently in no distress. Exam/Review of Systems Vital Signs Vitals Vital Signs Date Temp Pulse Resp B/P (MAP) Pulse Ox O2 O2 Flow FiO2 Time Delivery Rate 10/30/18 99.2 62 28 163/98 93 Mechanical 08:00 (119) Ventilator 10/30/18 70 05:04 Intake and Output 10/29/18 10/29/18 10/30/18 1515:00 23:00 07:00 IntakeIntake Total 150 ml 210 ml 200 ml OutputOutput Total 825 ml 2315 ml 625 ml BalanceBalance -675 ml -2105 ml -425 ml Exam H EENT exam; supple neck, JVD difficult to see because of short neck. Orally intubated. Patient has fair dentition. No neck masses. Pupils are small bilaterally. Chest exam; diminished breath sounds throughout. S1-S2 audible, no murmurs. Regular rhythm. Abdomen exam; soft, no organomegaly. Bowel sounds audible. Organomegaly difficult to assess. Extremity exam; neck lower extremity skin changes. No peripheral edema. Pulses 1+. PUFFER TENDER exam; patient is sedated. Medications Medications Current Medications IV Flush (NS 3 ml) 3 ml PER PROTOCOL IV ; Start 10/17/18 at 15:30 Hydromorphone HCl (Dilaudid) 0.5 mg Q4H PRN IV SEVERE PAIN LEVEL 7-10 Last admi nistered on 10/20/18at 15:29; Admin Dose 0.5 MG; Start 10/17/18 at 15:30 Famotidine (Pepcid Iv) 20 mg Q12 IV Last administered on 10/30/18 08:04; Admin Dose 20 MG; Start 10/17/18 at 21:00 Furosemide (Lasix) 40 mg BID DIURETICS IV Last administered on 10/30/18 05:59; Admin Dose 40 MG; Start 10/19/18 at 10:30 Nystatin (Nystatin Powder) 1 applic BID TOP Last administered on 10/30/18 08:04; Admin Dose 1 APPLIC; Start 10/19/18 at 21:00 Enoxaparin Sodium (Lovenox) 60 mg DAILY SC Last administered on 10/30/18 08:06; Admin Dose 60 MG; Start 10/21/18 at 09:00 Ipratropium [place] (Atrovent Hfa) 4 puff Q6H RESP THERAPY INH Last administered on 10/30/18 01:27; Admin Dose 4 PUFF; Start 10/20/18 at 20:00 Albuterol (Ventolin Hfa) 4 puff Q6H RESP THERAPY INH Last administered on 10/30/18 01:27; Admin Dose 4 PUFF; Start 10/20/18 at 20:00 Diagnostic Test (Pha) (Accu-Chek) 1 ea 02 XX Last administered on 10/29/18at 02:54; Admin Dose 1 EA; Start 10/21/18 at 02:00 Miscellaneous Information 1 ea NOTE XX ; Start 10/20/18 at 16:30 Glucose (Glutose) 15 gm Q15M PRN PO DECREASED GLUCOSE; Start 10/20/18 at 16:30 Glucose (Glutose) 22.5 gm Q15M PRN PO DECREASED GLUCOSE; Start 10/20/18 at 16:30 Dextrose (D50w Syringe) 25 ml Q15M PRN IV DECREASED GLUCOSE; Start 10/20/18 at 16:30 Dextrose (D50w Syringe) 50 ml Q15M PRN IV DECREASED GLUCOSE; Start 10/20/18 at 16:30 Glucagon (Glucagen) 1 mg Q15M PRN IM DECREASED GLUCOSE; Start 10/20/18 at 16:30 Glucose (Glutose) 15 gm Q15M PRN BUCCAL DECREASED GLUCOSE; Start 10/20/18 at 16:30 IV Flush (NS 10 ml) 10 ml PRN PRN IV IV PROTOCOL; Start 10/20/18 at 16:30 Midazolam HCl 50 ml @ 1 mls/hr TITRATE IV Last administered on 10/30/18 06:58; Admin Dose 10 MLS/HR; Start 10/22/18 at 02:30 Cefepime HCl 50 ml @ 100 mls/hr Q12 IVPB Last administered on 10/30/18 08:07; Admin Dose 100 MLS/HR; Start 10/22/18 at 11:00 Fentanyl 1000 mcg/ Sodium Chloride 100 ml @ 2.5 mls/hr TITRATE IV Last administered on 10/30/18 00:47; Admin Dose 10 MLS/HR; Start 10/22/18 at 11:30 Docusate Sodium (Colace Liquid Cup) 100 mg BID GTB Last administered on 10/30/18 08:01; Admin Dose 100 MG; Start 10/22/18 at 21:00 Acetaminophen (Tylenol Tab) 650 mg Q6H PRN PO MILD PAIN(1-3)OR ELEVATED TEMP Last administered on 10/25/18 06:33; Admin Dose 650 MG; Start 10/23/18 at 20:30 Methylprednisolone Sodium Succinate (Solu-Medrol) 40 mg Q6 IV Last administered on 10/30/18 05:59; Admin Dose 40 MG; Start 10/27/18 at 12:00 Insulin Aspart (Novolog Insulin Pen) NOVOLOG *MODERATE* ALGORI... Q4 SC Last administered on 10/30/18 08:07; Admin Dose 6 UNIT; Start 10/27/18 at 21:00 Insulin Glargine (Lantus) 60 units DAILY@2000 SC Last administered on 10/29/18at 20:28; Admin Dose 60 UNITS; Start 10/29/18 at 20:00 Date/Time of Note Date/Time of Note DATE: 10/30/18 TIME: 08:44 ETTA BRANTLEY Oct 30, 2018 08:46
--- NOTE | 2018-10-30 09:10 | PN ---
Date/Time of Note Date/Time of Note DATE: 10/30/18 TIME: 09:10 Assessment/Plan VTE Prophylaxis Risk score (from Ns)>0 risk: 9 SCD applied (from Ns): No SCD contraindicated: other Pharmacological prophylaxis: LMWH Lines/Catheters IV Catheter Type (from Nrsg): PICC Line Central line still needed: Yes Urinary Cath still in place: Yes Reason Cath still needed: skin wounds contaminated by urine Assessment/Plan Assessment/Plan 1. Acute hypercapnic and hypoxemic respiratory failure secondary to diastolic CHF and/or pneumonia with underlying OHS and hypercapnia - Continue weaning PEEP and O2. Currently PEEP at 14 and O2 at 70% this am - Pulmonology on board and appreciate consultation. Continue vent support with ARDS protocol. Weaning down PEEP and FIO2 - ABG noted - Continue on Cefepime - Continue Lasix 2. Sepsis with fevers and tachycardia likely secondary to pneumonia - Continue cefepime - Single blood culture is positive for coag negative staph but is likely a contaminant 3. Severe morbid obesity - Lifestyle changes 4. Diabetes - Adjusted Lantus for better control - will change tube feeds to diabetic for better glucose control 5. Disposition - Continue current management of vent settings per Pulmonology recommendations When FIO2 more optimal, will need trach/PEG and SNF placement Result Diagram: 10/30/18 0459 10/30/18 0459 Results 24hrs Laboratory Tests Test 10/29/18 09:29 10/29/18 15:20 10/29/18 17:18 10/29/18 18:03 Bedside Glucose 217 216 227 H Sodium Level 144 Potassium Level 4.6 Chloride Level 94 L Carbon Dioxide Level 44 *H Anion Gap 6 Blood Urea Nitrogen 40 H Creatinine 0.63 Est Glomerular > 60 Filtrat Rate mL/min Glucose Level 233 H Calcium Level 9.9 Magnesium Level 2.2 Test 10/29/18 20:26 10/29/18 21:38 10/30/18 01:07 10/30/18 04:53 Bedside Glucose 196 214 232 H 207 Test 10/30/18 04:59 10/30/18 08:03 White Blood Count 10.6 Red Blood Count 5.13 Hemoglobin 13.9 L Hematocrit 45.7 Mean Corpuscular 89.1 Volume Mean Corpuscular 27.1 L Hemoglobin Mean Corpuscular 30.4 L Hemoglobin Concent Red Cell 17.5 H Distribution Width Platelet Count 261 # Mean Platelet Volume 12.3 H Immature 0.700 H Granulocytes % Neutrophils % 77.6 H Lymphocytes % 12.7 L Monocytes % 8.3 Eosinophils % 0.2 Basophils % 0.5 Nucleated Red Blood 0.0 Cells % Immature 0.070 H Granulocytes # Neutrophils # 8.2 H Lymphocytes # 1.3 Monocytes # 0.9 Eosinophils # 0.0 Basophils # 0.1 Nucleated Red Blood 0.0 Cells # Sodium Level 146 H Potassium Level 4.7 Chloride Level 95 L Carbon Dioxide Level 39 H Anion Gap 12 Blood Urea Nitrogen 43 H Creatinine 0.57 L Glucose Level 236 H Calcium Level 9.9 Phosphorus Level 5.9 H Magnesium Level 2.2 Albumin 3.3 Bedside Glucose 238 H Subjective 24 Hr Interval Summary Free Text/Dictation Patient remains intubated and sedated. BP slightly elevated but no acute distress appreciated. Glucose still running high as well. Exam/Review of Systems Vital Signs Vitals Vital Signs Date Temp Pulse Resp B/P (MAP) Pulse Ox O2 O2 Flow FiO2 Time Delivery Rate 10/30/18 99.2 62 28 163/98 93 Mechanical 08:00 (119) Ventilator 10/30/18 70 08:00 Intake and Output 10/29/18 10/29/18 10/30/18 1515:00 23:00 07:00 IntakeIntake Total 150 ml 210 ml 220 ml OutputOutput Total 825 ml 2315 ml 625 ml BalanceBalance -675 ml -2105 ml -405 ml Exam General: Remains intubated and sedated. no acute distress Eyes: EOMI, pupils reactive to light Neck: Supple Respiratory: Clear to auscultation bilaterally. diminished air entry. no wheezing or rhonchi Cardiovascular: regular rate and rhythm. no obvious murmurs Gastrointestinal: soft, non-tender to palpation, morbidly obese, bowel sounds heard but diminished. Skin: dryness to LE bilaterally with chronic skin changes Medications Medications Current Medications IV Flush (NS 3 ml) 3 ml PER PROTOCOL IV ; Start 10/17/18 at 15:30 Hydromorphone HCl (Dilaudid) 0.5 mg Q4H PRN IV SEVERE PAIN LEVEL 7-10 Last administered on 10/20/18at 15:29; Admin Dose 0.5 MG; Start 10/17/18 at 15:30 Famotidine (Pepcid Iv) 20 mg Q12 IV Last administered on 10/30/18 08:04; Admin Dose 20 MG; Start 10/17/18 at 21:00 Furosemide (Lasix) 40 mg BID DIURETICS IV Last administered on 10/30/18at 05:59; Admin Dose 40 MG; Start 10/19/18 at 10:30 Nystatin (Nystatin Powder) 1 applic BID TOP Last administered on 10/30/18 08:04; Admin Dose 1 APPLIC; Start 10/19/18 at 21:00 Enoxaparin Sodium (Lovenox) 60 mg DAILY SC Last administered on 10/30/18 08:06; Admin Dose 60 MG; Start 10/21/18 at 09:00 Ipratropium [place] (Atrovent Hfa) 4 puff Q6H RESP THERAPY INH Last administered on 10/30/18 09:03; Admin Dose 4 PUFF; Start 10/20/18 at 20:00 Albuterol (Ventolin Hfa) 4 puff Q6H RESP THERAPY INH Last administered on 10/30/18at 09:02; Admin Dose 4 PUFF; Start 10/20/18 at 20:00 Diagnostic Test (Pha) (Accu-Chek) 1 ea 02 XX Last administered on 10/29/18at 02:54; Admin Dose 1 EA; Start 10/21/18 at 02:00 Miscellaneous Information 1 ea NOTE XX ; Start 10/20/18 at 16:30 Glucose (Glutose) 15 gm Q15M PRN PO DECREASED GLUCOSE; Start 10/20/18 at 16:30 Glucose (Glutose) 22.5 gm Q15M PRN PO DECREASED GLUCOSE; Start 10/20/18 at 16:30 Dextrose (D50w Syringe) 25 ml Q15M PRN IV DECREASED GLUCOSE; Start 10/20/18 at 16:30 Dextrose (D50w Syringe) 50 ml Q15M PRN IV DECREASED GLUCOSE; Start 10/20/18 at 16:30 Glucagon (Glucagen) 1 mg Q15M PRN IM DECREASED GLUCOSE; Start 10/20/18 at 16:30 Glucose (Glutose) 15 gm Q15M PRN BUCCAL DECREASED GLUCOSE; Start 10/20/18 at 16:30 IV Flush (NS 10 ml) 10 ml PRN PRN IV IV PROTOCOL; Start 10/20/18 at 16:30 Midazolam HCl 50 ml @ 1 mls/hr TITRATE IV Last administered on 10/30/18 06:58; Admin Dose 10 MLS/HR; Start 10/22/18 at 02:30 Cefepime HCl 50 ml @ 100 mls/hr Q12 IVPB Last administered on 10/30/18 08:07; Admin Dose 100 MLS/HR; Start 10/22/18 at 11:00 Fentanyl 1000 mcg/ Sodium Chloride 100 ml @ 2.5 mls/hr TITRATE IV Last administered on 10/30/18 00:47; Admin Dose 10 MLS/HR; Start 10/22/18 at 11:30 Docusate Sodium (Colace Liquid Cup) 100 mg BID GTB Last administered on 10/30/18 08:01; Admin Dose 100 MG; Start 10/22/18 at 21:00 Acetaminophen (Tylenol Tab) 650 mg Q6H PRN PO MILD PAIN(1-3)OR ELEVATED TEMP Last administered on 10/25/18 06:33; Admin Dose 650 MG; Start 10/23/18 at 20:30 Methylprednisolone Sodium Succinate (Solu-Medrol) 40 mg Q6 IV Last administered on 10/30/18 05:59; Admin Dose 40 MG; Start 10/27/18 at 12:00 Insulin Aspart (Novolog Insulin Pen) NOVOLOG *MODERATE* ALGORI... Q4 SC Last administered on 10/30/18 08:07; Admin Dose 6 UNIT; Start 10/27/18 at 21:00 Insulin Glargine (Lantus) 60 units DAILY@2000 SC Last administered on 10/29/18 20:28; Admin Dose 60 UNITS; Start 10/29/18 at 20:00 CLAUDIA TIDWELL MD Oct 30, 2018 09:10
[2018-10-30] MEDS: LISINOPRIL 20 MG TAB NGT SCH (10:21)
[2018-10-30] MEDS: HYDROmorphONE 0.5 MG/0.5 ML SYG IV PRN (15:27)
[2018-10-30] MEDS: INSULIN GLARGINE [LANTus] (100 UNITS/ML) SYG SC SCH (20:20)
[2018-10-30] MEDS: LORAZEPAM 2 MG INJ IV PRN (23:46)
[2018-10-31] VITALS (40 sets, daily range): BP systolic 112–162; BP diastolic 68–106; PULSE 62–124; RESP 9–28
[2018-10-31] MEDS: INSULIN ASPART [NOVOLOG] 3 ML PEN SC SCH ×6 (01:28→21:08)
[2018-10-31] MEDS: ACCU-CHEK XX SCH (02:00)
[2018-10-31] MEDS: IPRATROPIUM (HFA) 12.9 GM INHALER INH SCH ×4 (02:23→20:21)
[2018-10-31] MEDS: ALBUTEROL HFA 8 GM INHALER INH SCH ×4 (02:23→20:20)
[2018-10-31] MEDS: LORAZEPAM 2 MG INJ IV PRN (03:53)
[2018-10-31] MEDS: MIDAZOLAM (DRIP) 50 mg/50 mL 50 ML IV SCH ×4 (04:19→21:56)
[2018-10-31] MEDS: FUROSEMIDE 40 MG INJ IV SCH ×2 (05:30→17:57)
[2018-10-31] MEDS: METHYLPREDNISOLONE 40 MG INJ IV SCH ×3 (05:30→17:56)
[2018-10-31] MEDS: FENTAnyl 1,000 MCG in SOD CHLORIDE 0.9% 80 ML IV SCH ×2 (09:01→20:48)
[2018-10-31] MEDS: CEFEPIME 2GM/50 ML (PMX) 50 ML IVPB SCH ×2 (09:07→20:59)
[2018-10-31] MEDS: DOCUSATE SODIUM 10 MG/ML (10ML CUP) GTB SCH ×2 (09:07→20:58)
[2018-10-31] MEDS: FAMOTIDINE 20 MG INJ IV SCH (09:07)
[2018-10-31] MEDS: NYSTATIN 30 GM POWDER BTL TOP SCH ×2 (09:08→21:06)
[2018-10-31] MEDS: LISINOPRIL 20 MG TAB NGT SCH (09:08)
[2018-10-31] MEDS: ENOXAPARIN 60 MG/0.6 ML SYG SC SCH (09:09)
--- NOTE | 2018-10-31 09:27 | CONS ---
Consult Date/Type/Reason Admit Date/Time Oct 17, 2018 at 14:17 Initial Consult Date 10/18/18 Type of Consultation: Pulm/CCM Date/Time of Note DATE: 10/31/18 TIME: 09:25 Subjective Patient remains on mechanical ventilation 75% with a PEEP of 14. Continues fentanyl and Versed. Tube feedings are tolerated however only 20 cc an hour. Objective Vitals Vital Signs Date Temp Pulse Resp B/P (MAP) Pulse Ox O2 O2 Flow FiO2 Time Delivery Rate 10/31/18 68 08:00 10/31/18 28 125/75 94 Mechanical 07:00 (92) Ventilator 10/31/18 70 05:22 10/31/18 98.8 04:00 Intake and Output 10/30/18 10/30/18 10/31/18 1515:00 23:00 07:00 IntakeIntake Total 780 ml 520 ml 680 ml OutputOutput Total 1850 ml 2500 ml 2250 ml BalanceBalance -1070 ml -1980 ml -1570 ml Exam GENERAL: Morbidly obese gentleman orally intubated on mechanical ventilation VITAL SIGNS: per chart NECK: Supple. No JVD or lymphadenopathy. CARDIAC EXAM: S1, S2. No added sounds or murmurs. CHEST: Diminished air entry bilaterally ABDOMEN: Soft, nontender. No guarding or rebound. EXTREMITIES: No cyanosis, clubbing or edema. NEUROLOGIC: Generalized weakness. No focal deficits. Results/Medications Result Diagram: 10/30/18 0459 10/31/18 0430 Results 24 hrs Laboratory Tests Test 10/30/18 12:06 10/30/18 17:08 10/30/18 20:17 10/30/18 21:20 Bedside Glucose 199 204 204 232 H Test 10/31/18 01:27 10/31/18 04:30 10/31/18 05:14 Bedside Glucose 223 H 190 Sodium Level 146 H Potassium Level 4.2 Chloride Level 96 L Carbon Dioxide Level 43 *H Anion Gap 7 Blood Urea Nitrogen 39 H Creatinine 0.61 Glucose Level 234 H Calcium Level 9.6 Phosphorus Level 4.7 Magnesium Level 2.3 Albumin 3.1 L Home Meds Reported Medications Hydrochlorothiazide* (Hydrochlorothiazide*) 25 Mg Tab, 25 MG PO DAILY, #30 TAB 10/17/18 Lisinopril* (Lisinopril*) 20 Mg Tablet, 20 MG PO DAILY, #30 TAB 10/17/18 Medications Current Medications IV Flush (NS 3 ml) 3 ml PER PROTOCOL IV ; Start 10/17/18 at 15:30 Hydromorphone HCl (Dilaudid) 0.5 mg Q4H PRN IV SEVERE PAIN LEVEL 7-10 Last administered on 10/30/18 15:27; Admin Dose 0.5 MG; Start 10/17/18 at 15:30 Famotidine (Pepcid Iv) 20 mg Q12 IV Last administered on 10/31/18 09:07; Admin Dose 20 MG; Start 10/17/18 at 21:00 Furosemide (Lasix) 40 mg BID DIURETICS IV Last administered on 10/31/18 05:30; Admin Dose 40 MG; Start 10/19/18 at 10:30 Nystatin (Nystatin Powder) 1 applic BID TOP Last administered on 10/31/18 09:08; Admin Dose 1 APPLIC; Start 10/19/18 at 21:00 Enoxaparin Sodium (Lovenox) 60 mg DAILY SC Last administered on 10/31/18 09:09; Admin Dose 60 MG; Start 10/21/18 at 09:00 Ipratropium [place] (Atrovent Hfa) 4 puff Q6H RESP THERAPY INH Last administered on 10/31/18 07:36; Admin Dose 4 PUFF; Start 10/20/18 at 20:00 Albuterol (Ventolin Hfa) 4 puff Q6H RESP THERAPY INH Last administered on 10/31/18 07:37; Admin Dose 4 PUFF; Start 10/20/18 at 20:00 Diagnostic Test (Pha) (Accu-Chek) 1 ea 02 XX Last administered on 10/29/18at 02:54; Admin Dose 1 EA; Start 10/21/18 at 02:00 Miscellaneous Information 1 ea NOTE XX ; Start 10/20/18 at 16:30 Glucose (Glutose) 15 gm Q15M PRN PO DECREASED GLUCOSE; Start 10/20/18 at 16:30 Glucose (Glutose) 22.5 gm Q15M PRN PO DECREASED GLUCOSE; Start 10/20/18 at 16:30 Dextrose (D50w Syringe) 25 ml Q15M PRN IV DECREASED GLUCOSE; Start 10/20/18 at 16:30 Dextrose (D50w Syringe) 50 ml Q15M PRN IV DECREASED GLUCOSE; Start 10/20/18 at 16:30 Glucagon (Glucagen) 1 mg Q15M PRN IM DECREASED GLUCOSE; Start 10/20/18 at 16:30 Glucose (Glutose) 15 gm Q15M PRN BUCCAL DECREASED GLUCOSE; Start 10/20/18 at 16:30 IV Flush (NS 10 ml) 10 ml PRN PRN IV IV PROTOCOL; Start 10/20/18 at 16:30 Midazolam HCl 50 ml @ 1 mls/hr TITRATE IV Last administered on 10/31/18 04:19; Admin Dose 10 MLS/HR; Start 10/22/18 at 02:30 Cefepime HCl 50 ml @ 100 mls/hr Q12 IVPB Last administered on 10/31/18 09:07; Admin Dose 100 MLS/HR; Start 10/22/18 at 11:00 Fentanyl 1000 mcg/ Sodium Chloride 100 ml @ 2.5 mls/hr TITRATE IV Last administered on 10/31/18 09:01; Admin Dose 10 MLS/HR; Start 10/22/18 at 11:30 Docusate Sodium (Colace Liquid Cup) 100 mg BID GTB Last administered on 10/31/18 09:07; Admin Dose 100 MG; Start 10/22/18 at 21:00 Acetaminophen (Tylenol Tab) 650 mg Q6H PRN PO MILD PAIN(1-3)OR ELEVATED TEMP Last administered on 10/25/18 06:33; Admin Dose 650 MG; Start 10/23/18 at 20:30 Methylprednisolone Sodium Succinate (Solu-Medrol) 40 mg Q6 IV Last administered on 10/31/18 05:30; Admin Dose 40 MG; Start 10/27/18 at 12:00 Insulin Aspart (Novolog Insulin Pen) NOVOLOG *MODERATE* ALGORI... Q4 SC Last administered on 10/31/18 05:17; Admin Dose 4 UNIT; Start 10/27/18 at 21:00 Insulin Glargine (Lantus) 60 units DAILY@2000 SC Last administered on 10/30/18 20:20; Admin Dose 60 UNITS; Start 10/29/18 at 20:00 Lisinopril (Zestril) 20 mg DAILY NGT Last administered on 1/25/19at 09:08; Admin Dose 20 MG; Start 10/30/18 at 10:00 Lorazepam (Ativan) 2 mg Q4 PRN IV ANXIETY Last administered on 10/31/18at 03:53; Admin Dose 2 MG; Start 10/30/18 at 23:30 Assessment/Plan Hospital Course (Demo Recall) Assessment 1. Acute hypoxemic respiratory failure possible component of ARDS. 2. Likely component of pulmonary edema with diastolic dysfunction 3. Obesity hypoventilation syndrome with chronic hypercapnia 4. Dysphagia currently with nasogastric tube feeding Plan 1. Decrease FiO2 and PEEP as tolerated once stable patient can proceed for tracheostomy and PEG tube placement as discussed with family 2. Continue tube feeding as tolerated 3. Consider increasing free water 4. DVT and GI prophylaxis Overall prognosis remains guarded Critical care time 40 minutes RENATO JAVIER MD, [facility] Oct 31, 2018 09:27
--- NOTE | 2018-10-31 09:33 | PN ---
Date/Time of Note Date/Time of Note DATE: 10/31/18 TIME: 09:33 Assessment/Plan VTE Prophylaxis Risk score (from Ns)>0 risk: 9 SCD applied (from Ns): No SCD contraindicated: other Pharmacological prophylaxis: LMWH Lines/Catheters IV Catheter Type (from Nrsg): PICC Line Central line still needed: Yes Urinary Cath still in place: Yes Reason Cath still needed: skin wounds contaminated by urine Assessment/Plan Assessment/Plan 1. Acute hypercapnic and hypoxemic respiratory failure secondary to diastolic CHF and/or pneumonia with underlying OHS and hypercapnia - Continue weaning PEEP and O2. PEEP at 14 and O2 at 70% - Pulmonology on board and appreciate consultation. Continue vent support with ARDS protocol. Weaning down PEEP and FIO2 as tolerated - ABG noted - Continue on Cefepime - Continue Lasix 2. Sepsis with fevers and tachycardia likely secondary to pneumonia - Continue cefepime - Single blood culture is positive for coag negative staph but is likely a contaminant 3. Severe morbid obesity - Lifestyle changes 4. Diabetes - Adjusted Lantus for better control 5. Disposition - Continue current management of vent settings per Pulmonology recommendations When FIO2 more optimal, will need trach/PEG and SNF placement Result Diagram: 10/30/18 0459 10/31/18 0430 Results 24hrs Laboratory Tests Test 10/30/18 12:06 10/30/18 17:08 10/30/18 20:17 10/30/18 21:20 Bedside Glucose 199 204 204 232 H Test 10/31/18 01:27 10/31/18 04:30 10/31/18 05:14 10/31/18 09:27 Bedside Glucose 223 H 190 190 Sodium Level 146 H Potassium Level 4.2 Chloride Level 96 L Carbon Dioxide Level 43 *H Anion Gap 7 Blood Urea Nitrogen 39 H Creatinine 0.61 Glucose Level 234 H Calcium Level 9.6 Phosphorus Level 4.7 Magnesium Level 2.3 Albumin 3.1 L Subjective 24 Hr Interval Summary Free Text/Dictation Patient awake and following commands this am. Denies any issues but does appear restless. No acute overnight events. Exam/Review of Systems Exam Vitals Vital Signs Date Temp Pulse Resp B/P (MAP) Pulse Ox O2 O2 Flow FiO2 Time Delivery Rate 10/31/18 68 08:00 10/31/18 28 125/75 94 Mechanical 07:00 (92) Ventilator 10/31/18 70 05:22 10/31/18 98.8 04:00 Intake and Output 10/30/18 10/30/18 10/31/18 1515:00 23:00 07:00 IntakeIntake Total 780 ml 520 ml 680 ml OutputOutput Total 1850 ml 2500 ml 2250 ml BalanceBalance -1070 ml -1980 ml -1570 ml physical exam General: Remains intubated and sedated. no acute distress Eyes: EOMI, pupils reactive to light Neck: Supple Respiratory: Clear to auscultation bilaterally. diminished air entry. no wheezing or rhonchi Cardiovascular: regular rate and rhythm. no obvious murmurs Gastrointestinal: soft, non-tender to palpation, morbidly obese, bowel sounds heard but diminished. Skin: dryness to LE bilaterally with chronic skin changes Results Results 24hrs Laboratory Tests Test 10/30/18 12:06 10/30/18 17:08 10/30/18 20:17 10/30/18 21:20 Bedside Glucose 199 204 204 232 H Test 10/31/18 01:27 10/31/18 04:30 10/31/18 05:14 10/31/18 09:27 Bedside Glucose 223 H 190 190 Sodium Level 146 H Potassium Level 4.2 Chloride Level 96 L Carbon Dioxide Level 43 *H Anion Gap 7 Blood Urea Nitrogen 39 H Creatinine 0.61 Glucose Level 234 H Calcium Level 9.6 Phosphorus Level 4.7 Magnesium Level 2.3 Albumin 3.1 L CLAUDIA TIDWELL MD Oct 31, 2018 09:33
[2018-10-31] MEDS ORDERED: NA PHOSPHATE/BIPHOS 133 ML ENEMA PR PRN (11:30)
[2018-10-31] MEDS: INSULIN GLARGINE [LANTus] (100 UNITS/ML) SYG SC SCH ×2 (13:38→22:25)
[2018-10-31] MEDS: BISACODYL 10 MG SUPP PR PRN (13:52)
[2018-10-31] MEDS: LORAZEPAM 1 MG TAB GTB PRN (14:52)
[2018-10-31] MEDS: HYDROmorphONE 0.5 MG/0.5 ML SYG IV PRN ×2 (15:07→21:14)
[2018-10-31] MEDS: FAMOTIDINE 20 MG TAB GTB SCH (20:58)
[2018-11-01] VITALS (47 sets, daily range): BP systolic 111–179; BP diastolic 71–132; PULSE 54–124; RESP 10–38
[2018-11-01] MEDS: METHYLPREDNISOLONE 40 MG INJ IV SCH ×4 (00:37→17:25)
[2018-11-01] MEDS: HYDROmorphONE 0.5 MG/0.5 ML SYG IV PRN (01:27)
[2018-11-01] MEDS: INSULIN ASPART [NOVOLOG] 3 ML PEN SC SCH ×6 (01:56→19:59)
[2018-11-01] MEDS: ALBUTEROL HFA 8 GM INHALER INH SCH ×4 (02:19→19:38)
[2018-11-01] MEDS: IPRATROPIUM (HFA) 12.9 GM INHALER INH SCH ×4 (02:19→19:38)
[2018-11-01] MEDS: ACCU-CHEK XX SCH (02:49)
[2018-11-01] MEDS: MIDAZOLAM (DRIP) 50 mg/50 mL 50 ML IV SCH ×4 (03:00→20:01)
[2018-11-01] MEDS: FUROSEMIDE 40 MG INJ IV SCH ×2 (05:37→17:25)
[2018-11-01] MEDS: FENTAnyl 1,000 MCG in SOD CHLORIDE 0.9% 80 ML IV SCH ×2 (07:22→23:49)
[2018-11-01] MEDS: LISINOPRIL 20 MG TAB NGT SCH (08:54)
[2018-11-01] MEDS: INSULIN GLARGINE [LANTus] (100 UNITS/ML) SYG SC SCH ×2 (08:54→20:00)
[2018-11-01] MEDS: FAMOTIDINE 20 MG TAB GTB SCH ×2 (08:54→20:54)
[2018-11-01] MEDS: CEFEPIME 2GM/50 ML (PMX) 50 ML IVPB SCH ×2 (08:54→21:52)
[2018-11-01] MEDS: ENOXAPARIN 60 MG/0.6 ML SYG SC SCH (08:55)
[2018-11-01] MEDS: NYSTATIN 30 GM POWDER BTL TOP SCH ×2 (08:55→21:02)
[2018-11-01] MEDS: DOCUSATE SODIUM 10 MG/ML (10ML CUP) GTB SCH ×2 (08:55→20:54)
[2018-11-01] MEDS: PROPOFOL 100 ML IV SCH ×3 (08:57→20:57)
--- NOTE | 2018-11-01 09:18 | PN ---
Date/Time of Note Date/Time of Note DATE: 11/01/18 TIME: 09:18 Assessment/Plan VTE Prophylaxis Risk score (from Ns)>0 risk: 10 SCD applied (from Ns): No SCD contraindicated: other Pharmacological prophylaxis: LMWH Lines/Catheters IV Catheter Type (from Nrsg): PICC Line Central line still needed: Yes Urinary Cath still in place: Yes Reason Cath still needed: skin wounds contaminated by urine Assessment/Plan Assessment/Plan 1. Acute hypercapnic and hypoxemic respiratory failure secondary to diastolic CHF and/or pneumonia with underlying OHS and hypercapnia - Patient very agitated this am and had to add propofol to help calm him down. Was on fentanyl and versed but still thrashing around room - Continue weaning PEEP and O2. PEEP at 14 and O2 at 60% - Pulmonology on board and appreciate consultation. Continue vent support with ARDS protocol. Weaning down PEEP and FIO2 as tolerated - ABG noted - Continue on Cefepime - Continue Lasix 2. Sepsis with fevers and tachycardia likely secondary to pneumonia - Continue cefepime - Single blood culture is positive for coag negative staph but is likely a contaminant 3. Severe morbid obesity - Lifestyle changes 4. Diabetes - Adjusted Lantus for better control 5. Disposition - Continue current management of vent settings per Pulmonology recommendations When FIO2 more optimal, will need trach/PEG and SNF placement Result Diagram: 11/01/18 0410 11/01/18 0410 Results 24hrs Laboratory Tests Test 10/31/18 09:27 10/31/18 11:49 10/31/18 17:55 10/31/18 20:53 Bedside Glucose 190 179 200 182 Test 11/01/18 01:46 11/01/18 04:10 11/01/18 05:30 11/01/18 07:00 Bedside Glucose 174 187 White Blood Count 10.4 Red Blood Count 5.07 Hemoglobin 13.6 L Hematocrit 44.8 Mean Corpuscular 88.4 Volume Mean Corpuscular 26.8 L Hemoglobin Mean Corpuscular 30.4 L Hemoglobin Concen t Red Cell 18.1 H Distribution Width Platelet Count 357 # Mean Platelet 11.8 H Volume Immature 0.600 H Granulocytes % Neutrophils % 77.5 H Lymphocytes % 13.1 L Monocytes % 8.1 Eosinophils % 0.5 Basophils % 0.2 Nucleated Red 0.0 Blood Cells % Immature 0.060 H Granulocytes # Neutrophils # 8.1 H Lymphocytes # 1.4 Monocytes # 0.8 Eosinophils # 0.1 Basophils # 0.0 Nucleated Red 0.0 Blood Cells # Sodium Level 145 H Potassium Level 3.9 Chloride Level 93 L Carbon Dioxide 41 *H Level Anion Gap 11 Blood Urea 35 H Nitrogen Creatinine 0.66 Est Glomerular > 60 Filtrat Rate mL/min Glucose Level 206 Calcium Level 9.5 Phosphorus Level 4.3 Magnesium Level 2.3 Blood Gas Blood arterial Specimen Source Arterial Blood 11/01/2018 8:10:0 Date Drawn 0 AM Arterial Blood pH 7.468 H (Temp corrected) Arterial Blood 64.2 H pCO2 (Temp correct) Arterial Blood 68.0 L pO2 (Temp corrected) Arterial Blood 45.5 *H HCO3 Arterial Blood 17.8 H Base Excess Arterial Blood 93.0 L Oxygen Saturation Danilo Test ACCEPTAB Arterial Blood Right Radial Gas Puncture Site Arterial 1.3 Blood Carboxyhemo globin Arterial Blood 0.1 Methemoglobin Blood Gas A-a O2 289.2 H Differential Oxyhemoglobin 91.7 L Percent Blood Gas 37.0 Temperature Blood Gas 28.0 Respiration Rate Blood Gas Actual 28 Respiration Rate Blood Gas VENT - AC Modality FiO2 60.0 Blood Gas Tidal 450.0 Volume Blood Gas Low 14.0 PEEP Setting Blood Gas L CAPRI RN Critical Value Read Back Blood Gas DT Notified Whom Blood Gas 11/01/2018 8:21:0 Notified Time 0 AM Test 11/01/18 08:26 Bedside Glucose 217 Subjective 24 Hr Interval Summary Free Text/Dictation Patient was very agitated this am despite high dose of fentanyl and versed. Unstable for trach placement. Exam/Review of Systems Exam Vitals Vital Signs Date Temp Pulse Resp B/P (MAP) Pulse Ox O2 O2 Flow FiO2 Time Delivery Rate 11/01/18 68 08:00 11/01/18 28 164/94 06:30 (117) 11/01/18 95 06:00 11/01/18 60 05:19 10/31/18 98.8 Mechanical 20:00 Ventilator Intake and Output 10/31/18 10/31/18 11/01/18 1515:00 23:00 07:00 IntakeIntake Total 530 ml 650 ml 240 ml OutputOutput Total 1175 ml 2775 ml 1400 ml BalanceBalance -645 ml -2125 ml -1160 ml Exam General: Remains intubated and sedated. no acute distress Eyes: EOMI, pupils reactive to light Neck: Supple Respiratory: Clear to auscultation bilaterally. diminished air entry. no wheezing or rhonchi Cardiovascular: regular rate and rhythm. no obvious murmurs Gastrointestinal: soft, non-tender to palpation, morbidly obese, bowel sounds heard but diminished. Skin: dryness to LE bilaterally with chronic skin changes Results Results 24hrs Laboratory Tests Test 10/31/18 09:27 10/31/18 11:49 10/31/18 17:55 10/31/18 20:53 Bedside Glucose 190 179 200 182 Test 11/01/18 01:46 11/01/18 04:10 11/01/18 05:30 11/01/18 07:00 Bedside Glucose 174 187 White Blood Count 10.4 Red Blood Count 5.07 Hemoglobin 13.6 L Hematocrit 44.8 Mean Corpuscular 88.4 Volume Mean Corpuscular 26.8 L Hemoglobin Mean Corpuscular 30.4 L Hemoglobin Concen t Red Cell 18.1 H Distribution Width Platelet Count 357 # Mean Platelet 11.8 H Volume Immature 0.600 H Granulocytes % Neutrophils % 77.5 H Lymphocytes % 13.1 L Monocytes % 8.1 Eosinophils % 0.5 Basophils % 0.2 Nucleated Red 0.0 Blood Cells % Immature 0.060 H Granulocytes # Neutrophils # 8.1 H Lymphocytes # 1.4 Monocytes # 0.8 Eosinophils # 0.1 Basophils # 0.0 Nucleated Red 0.0 Blood Cells # Sodium Level 145 H Potassium Level 3.9 Chloride Level 93 L Carbon Dioxide 41 *H Level Anion Gap 11 Blood Urea 35 H Nitrogen Creatinine 0.66 Est Glomerular > 60 Filtrat Rate mL/min Glucose Level 206 Calcium Level 9.5 Phosphorus Level 4.3 Magnesium Level 2.3 Blood Gas Blood arterial Specimen Source Arterial Blood 11/01/2018 8:10:0 Date Drawn 0 AM Arterial Blood pH 7.468 H (Temp corrected) Arterial Blood 64.2 H pCO2 (Temp correct) Arterial Blood 68.0 L pO2 (Temp corrected) Arterial Blood 45.5 *H HCO3 Arterial Blood 17.8 H Base Excess Arterial Blood 93.0 L Oxygen Saturation Danilo Test ACCEPTAB Arterial Blood Right Radial Gas Puncture Site Arterial 1.3 Blood Carboxyhemo globin Arterial Blood 0.1 Methemoglobin Blood Gas A-a O2 289.2 H Differential Oxyhemoglobin 91.7 L Percent Blood Gas 37.0 Temperature Blood Gas 28.0 Respiration Rate Blood Gas Actual 28 Respiration Rate Blood Gas VENT - AC Modality FiO2 60.0 Blood Gas Tidal 450.0 Volume Blood Gas Low 14.0 PEEP Setting Blood Gas L CAPRI RN Critical Value Read Back Blood Gas DT Notified Whom Blood Gas 11/01/2018 8:21:0 Notified Time 0 AM Test 11/01/18 08:26 Bedside Glucose 217 Medications Medication Current Medications IV Flush (NS 3 ml) 3 ml PER PROTOCOL IV ; Start 10/17/18 at 15:30 Hydromorphone HCl (Dilaudid) 0.5 mg Q4H PRN IV SEVERE PAIN LEVEL 7-10 Last administered on 11/01/18 01:27; Admin Dose 0.5 MG; Start 10/17/18 at 15:30 Furosemide (Lasix) 40 mg BID DIURETICS IV Last administered on 11/01/18 05:37; Admin Dose 40 MG; Start 10/19/18 at 10:30 Nystatin (Nystatin Powder) 1 applic BID TOP Last administered on 11/01/18at 0 8:55; Admin Dose 1 APPLIC; Start 10/19/18 at 21:00 Enoxaparin Sodium (Lovenox) 60 mg DAILY SC Last administered on 11/01/18 08:55; Admin Dose 60 MG; Start 10/21/18 at 09:00 Ipratropium [place] (Atrovent Hfa) 4 puff Q6H RESP THERAPY INH Last administered on 11/01/18 08:25; Admin Dose 4 PUFF; Start 10/20/18 at 20:00 Albuterol (Ventolin Hfa) 4 puff Q6H RESP THERAPY INH Last administered on 10/08 08:25; Admin Dose 4 PUFF; Start 10/20/18 at 20:00 Diagnostic Test (Pha) (Accu-Chek) 1 ea 02 XX Last administered on 11/01/18at 02:49; Admin Dose 1 EA; Start 10/21/18 at 02:00 Miscellaneous Information 1 ea NOTE XX ; Start 10/20/18 at 16:30 Glucose (Glutose) 15 gm Q15M PRN PO DECREASED GLUCOSE; Start 10/20/18 at 16:30 Glucose (Glutose) 22.5 gm Q15M PRN PO DECREASED GLUCOSE; Start 10/20/18 at 16:30 Dextrose (D50w Syringe) 25 ml Q15M PRN IV DECREASED GLUCOSE; Start 10/20/18 at 16:30 Dextrose (D50w Syringe) 50 ml Q15M PRN IV DECREASED GLUCOSE; Start 10/20/18 at 16:30 Glucagon (Glucagen) 1 mg Q15M PRN IM DECREASED GLUCOSE; Start 10/20/18 at 16:30 Glucose (Glutose) 15 gm Q15M PRN BUCCAL DECREASED GLUCOSE; Start 10/20/18 at 16:30 IV Flush (NS 10 ml) 10 ml PRN PRN IV IV PROTOCOL; Start 10/20/18 at 16:30 Midazolam HCl 50 ml @ 1 mls/hr TITRATE IV Last administered on 11/01/18at 08:57; Admin Dose 10 MLS/HR; Start 10/22/18 at 02:30 Cefepime HCl 50 ml @ 100 mls/hr Q12 IVPB Last administered on 11/01/18at 08:54; Admin Dose 100 MLS/HR; Start 10/22/18 at 11:00 Fentanyl 1000 mcg/ Sodium Chloride 100 ml @ 2.5 mls/hr TITRATE IV Last administered on 11/01/18at 07:22; Admin Dose 10 MLS/HR; Start 10/22/18 at 11:30 Docusate Sodium (Colace Liquid Cup) 100 mg BID GTB Last administered on 11/01/18at 08:55; Admin Dose 100 MG; Start 10/22/18 at 21:00 Acetaminophen (Tylenol Tab) 650 mg Q6H PRN PO MILD PAIN(1-3)OR ELEVATED TEMP Last administered on 10/25/18at 06:33; Admin Dose 650 MG; Start 10/23/18 at 20:30 Methylprednisolone Sodium Succinate (Solu-Medrol) 40 mg Q6 IV Last administered on 11/01/18at 05:37; Admin Dose 40 MG; Start 10/27/18 at 12:00 Insulin Aspart (Novolog Insulin Pen) NOVOLOG *MODERATE* ALGORI... Q4 SC Last administered on 11/01/18at 08:56; Admin Dose 4 UNIT; Start 10/27/18 at 21:00 Lisinopril (Zestril) 20 mg DAILY NGT Last administered on 11/01/18 08:54; Admin Dose 20 MG; Start 10/30/18 at 10:00 Famotidine (Pepcid) 20 mg Q12 GTB Last administered on 11/01/18 08:54; Admin Dose 20 MG; Start 10/31/18 at 21:00 Bisacodyl (Dulcolax Supp) 10 mg Q24H PRN [place] CONSTIPATION Last administered on 10/31/18 13:52; Admin Dose 10 MG; Start 10/31/18 at 11:30 Sodium Biphosphate/ Sodium Phosphate (Fleet Enema) 133 ml Q24H PRN [place] CONSTIPATION; Start 10/31/18 at 11:30 Lorazepam (Ativan) 2 mg Q4H PRN GTB ANXIETY Last administered on 10/31/18 14:52; Admin Dose 2 MG; Start 10/31/18 at 12:00 Insulin Glargine (Lantus) 30 units BID@0800,2000 SC Last administered on 08:54; Admin Dose 30 UNITS; Start 10/31/18 at 13:00 Propofol 100 ml @ 7.909 mls/ hr Q12H IV Last administered on 11/01/18 08:57; Admin Dose 23.728 MLS/HR; Start 11/01/18 at 09:00 CLAUDIA TIDWELL MD Nov 01, 2018 09:18
--- NOTE | 2018-11-01 09:21 | CONS ---
Assessment/Plan Assessment/Plan Assessment/Plan (Daily) Ventilator setting; AC of 28, tidal volume 450, PEEP of 14, 60% FiO2. Chest x-ray showing bilateral pulmonary edema. Patient is currently on fentanyl 100 mics per hour, propofol 20 mics per kilogram per minute. Assessment and recommendations; 1. Patient with history of chronic type II respiratory. Readmitted because of pulmonary edema and pneumonia. Patient exhibiting persistent hypoxemia with some interval improvement. FiO2 now weaned down to 60%. 2. Chronic type II respiratory failure due to obesity/hypoventilation syndrome. 3. Diabetes and hypertension. Continue current supportive care. Wean down FiO2 as tolerated. Patient currently is too unstable for tracheostomy placement. Consultation Date/Type/Reason Admit Date/Time Oct 17, 2018 at 14:17 Initial Consult Date 10/18/18 Type of Consult Pulmonary/critical care Patient is a 52-year-old male who was brought into the hospital because of shortness of breath. Patient was in respiratory failure and required intubation. ABG was done which showed severe hypercapnia. By the time I saw the patient, patient is orally intubated and sedated. History was obtained from medical record as well as from patient's sister who was present in the room. Past medical history; 1. Chronic renal insufficiency. 2. Morbid obesity. Likely underlying sleep apnea syndrome. 3. Diabetes. 4. Hypertension. Medications; reviewed. Patient is currently on insulin drip at 7 units/h, propofol 20 mics per kilogram per minute. Other medications were reviewed as we ll. Allergies; none. Social history; positive for alcohol abuse and smoking. Family history; he is single, has 3 children. Patient is with his sisters who take care of him. Occupational history; patient is on medical leave. Review of system; unable to be obtained. General exam; middle-aged male, morbidly obese, orally intubated, sedated, currently in no distress. Date/Time of Note DATE: 11/01/18 TIME: 09:18 24 HR Interval Summary Free Text/Dictation Patient's condition remains critical. Still requiring fairly high FiO2 although it is much lower concentration. Patient has remained hemodynamically stable. General exam; middle-aged male, morbidly obese, orally intubated, sedated, currently in no distress. Exam/Review of Systems Exam Vitals Vital Signs Date Temp Pulse Resp B/P (MAP) Pulse Ox O2 O2 Flow FiO2 Time Delivery Rate 11/01/18 68 08:00 11/01/18 28 164/94 06:30 (117) 11/01/18 95 06:00 11/01/18 60 05:19 10/31/18 98.8 Mechanical 20:00 Ventilator Intake and Output 10/31/18 10/31/18 11/01/18 1515:00 23:00 07:00 IntakeIntake Total 530 ml 650 ml 240 ml OutputOutput Total 1175 ml 2775 ml 1400 ml BalanceBalance -645 ml -2125 ml -1160 ml Exam H EENT exam; supple neck, JVD difficult to see because of short neck. No thyromegaly. Orally intubated. Patient has fair dentition. Pupils are small bilaterally. Orogastric tube in place. Chest exam; diminished breath sounds bilaterally. S1-S2 audible, no murmurs. Regular rhythm. Abdomen exam; soft, protuberant. Organomegaly difficult to assess. Bowel sounds audible. Extremity exam; trace edema with chronic appearing lower extremity skin changes bilaterally. [employer]ISH[employer] exam; patient is sedated. Results Result Diagram: 11/01/18 0410 11/01/18 0410 Results 24hrs Laboratory Tests Test 10/31/18 09:27 10/31/18 11:49 10/31/18 17:55 10/31/18 20:53 Bedside Glucose 190 179 200 182 Test 11/01/18 01:46 11/01/18 04:10 11/01/18 05:30 11/01/18 07:00 Bedside Glucose 174 187 White Blood Count 10.4 Red Blood Count 5.07 Hemoglobin 13.6 L Hematocrit 44.8 Mean Corpuscular 88.4 Volume Mean Corpuscular 26.8 L Hemoglobin Mean Corpuscular 30.4 L Hemoglobin Concen t Red Cell 18.1 H Distribution Width Platelet Count 357 # Mean Platelet 11.8 H Volume Immature 0.600 H Granulocytes % Neutrophils % 77.5 H Lymphocytes % 13.1 L Monocytes % 8.1 Eosinophils % 0.5 Basophils % 0.2 Nucleated Red 0.0 Blood Cells % Immature 0.060 H Granulocytes # Neutrophils # 8.1 H Lymphocytes # 1.4 Monocytes # 0.8 Eosinophils # 0.1 Basophils # 0.0 Nucleated Red 0.0 Blood Cells # Sodium Level 145 H Potassium Level 3.9 Chloride Level 93 L Carbon Dioxide 41 *H Level Anion Gap 11 Blood Urea 35 H Nitrogen Creatinine 0.66 Est Glomerular > 60 Filtrat Rate mL/min Glucose Level 206 Calcium Level 9.5 Phosphorus Level 4.3 Magnesium Level 2.3 Blood Gas Blood arterial Specimen Source Arterial Blood 11/01/2018 8:10:0 Date Drawn 0 AM Arterial Blood pH 7.468 H (Temp corrected) Arterial Blood 64.2 H pCO2 (Temp correct) Arterial Blood 68.0 L pO2 (Temp corrected) Arterial Blood 45.5 *H HCO3 Arterial Blood 17.8 H Base Excess Arterial Blood 93.0 L Oxygen Saturation Danilo Test ACCEPTAB Arterial Blood Right Radial Gas Puncture Site Arterial 1.3 Blood Carboxyhemo globin Arterial Blood 0.1 Methemoglobin Blood Gas A-a O2 289.2 H Differential Oxyhemoglobin 91.7 L Percent Blood Gas 37.0 Temperature Blood Gas 28.0 Respiration Rate Blood Gas Actual 28 Respiration Rate Blood Gas VENT - AC Modality FiO2 60.0 Blood Gas Tidal 450.0 Volume Blood Gas Low 14.0 PEEP Setting Blood Gas L CAPRI RN Critical Value Read Back Blood Gas DT Notified Whom Blood Gas 11/01/2018 8:21:0 Notified Time 0 AM Test 11/01/18 08:26 Bedside Glucose 217 Medications Medication Current Medications IV Flush (NS 3 ml) 3 ml PER PROTOCOL IV ; Start 10/17/18 at 15:30 Hydromorphone HCl (Dilaudid) 0.5 mg Q4H PRN IV SEVERE PAIN LEVEL 7-10 Last administered on 11/01/18at 01:27; Admin Dose 0.5 MG; Start 10/17/18 at 15:30 Furosemide (Lasix) 40 mg BID DIURETICS IV Last administered on 11/01/18at 05:37; Admin Dose 40 MG; Start 10/19/18 at 10:30 Nystatin (Nystatin Powder) 1 applic BID TOP Last administered on 11/01/18at 0 8:55; Admin Dose 1 APPLIC; Start 10/19/18 at 21:00 Enoxaparin Sodium (Lovenox) 60 mg DAILY SC Last administered on 11/01/18 08:55; Admin Dose 60 MG; Start 10/21/18 at 09:00 Ipratropium Russell (Atrovent Hfa) 4 puff Q6H RESP THERAPY INH Last administered on 11/01/18 08:25; Admin Dose 4 PUFF; Start 10/20/18 at 20:00 Albuterol (Ventolin Hfa) 4 puff Q6H RESP THERAPY INH Last administered on 10/08 08:25; Admin Dose 4 PUFF; Start 10/20/18 at 20:00 Diagnostic Test (Pha) (Accu-Chek) 1 ea 02 XX Last administered on 11/01/18at 02:49; Admin Dose 1 EA; Start 10/21/18 at 02:00 Miscellaneous Information 1 ea NOTE XX ; Start 10/20/18 at 16:30 Glucose (Glutose) 15 gm Q15M PRN PO DECREASED GLUCOSE; Start 10/20/18 at 16:30 Glucose (Glutose) 22.5 gm Q15M PRN PO DECREASED GLUCOSE; Start 10/20/18 at 16:30 Dextrose (D50w Syringe) 25 ml Q15M PRN IV DECREASED GLUCOSE; Start 10/20/18 at 16:30 Dextrose (D50w Syringe) 50 ml Q15M PRN IV DECREASED GLUCOSE; Start 10/20/18 at 16:30 Glucagon (Glucagen) 1 mg Q15M PRN IM DECREASED GLUCOSE; Start 10/20/18 at 16:30 Glucose (Glutose) 15 gm Q15M PRN BUCCAL DECREASED GLUCOSE; Start 10/20/18 at 16:30 IV Flush (NS 10 ml) 10 ml PRN PRN IV IV PROTOCOL; Start 10/20/18 at 16:30 Midazolam HCl 50 ml @ 1 mls/hr TITRATE IV Last administered on 11/01/18at 08:57; Admin Dose 10 MLS/HR; Start 10/22/18 at 02:30 Cefepime HCl 50 ml @ 100 mls/hr Q12 IVPB Last administered on 11/01/18 08:54; Admin Dose 100 MLS/HR; Start 10/22/18 at 11:00 Fentanyl 1000 mcg/ Sodium Chloride 100 ml @ 2.5 mls/hr TITRATE IV Last administered on 11/01/18at 07:22; Admin Dose 10 MLS/HR; Start 10/22/18 at 11:30 Docusate Sodium (Colace Liquid Cup) 100 mg BID GTB Last administered on 11/01/18 08:55; Admin Dose 100 MG; Start 10/22/18 at 21:00 Acetaminophen (Tylenol Tab) 650 mg Q6H PRN PO MILD PAIN(1-3)OR ELEVATED TEMP Last administered on 10/25/18 06:33; Admin Dose 650 MG; Start 10/23/18 at 20:30 Methylprednisolone Sodium Succinate (Solu-Medrol) 40 mg Q6 IV Last administered on 11/01/18 05:37; Admin Dose 40 MG; Start 10/27/18 at 12:00 Insulin Aspart (Novolog Insulin Pen) NOVOLOG *MODERATE* ALGORI... Q4 SC Last administered on 11/01/18 08:56; Admin Dose 4 UNIT; Start 10/27/18 at 21:00 Lisinopril (Zestril) 20 mg DAILY NGT Last administered on 11/01/18 08:54; Admin Dose 20 MG; Start 10/30/18 at 10:00 Famotidine (Pepcid) 20 mg Q12 GTB Last administered on 11/01/18 08:54; Admin Dose 20 MG; Start 10/31/18 at 21:00 Bisacodyl (Dulcolax Supp) 10 mg Q24H PRN [place] CONSTIPATION Last administered on 10/31/18 13:52; Admin Dose 10 MG; Start 10/31/18 at 11:30 Sodium Biphosphate/ Sodium Phosphate (Fleet Enema) 133 ml Q24H PRN IN CONSTIPATION; Start 10/31/18 at 11:30 Lorazepam (Ativan) 2 mg Q4H PRN GTB ANXIETY Last administered on 10/31/18 14:52; Admin Dose 2 MG; Start 10/31/18 at 12:00 Insulin Glargine (Lantus) 30 units BID@0800,2000 SC Last administered on 08:54; Admin Dose 30 UNITS; Start 10/31/18 at 13:00 Propofol 100 ml @ 7.909 mls/ hr Q12H IV Last administered on 11/01/18 08:57; Admin Dose 23.728 MLS/HR; Start 11/01/18 at 09:00 ETTA BRANTLEY Nov 01, 2018 09:21
[2018-11-02] VITALS (72 sets, daily range): BP systolic 109–181; BP diastolic 67–116; PULSE 43–100; RESP 8–30
[2018-11-02] MEDS: METHYLPREDNISOLONE 40 MG INJ IV SCH ×4 (00:19→18:17)
[2018-11-02] MEDS: PROPOFOL 100 ML IV SCH ×5 (00:20→22:13)
[2018-11-02] MEDS: hydrALAzine 20 MG INJ IV PRN ×2 (00:21→13:30)
[2018-11-02] MEDS: INSULIN ASPART [NOVOLOG] 3 ML PEN SC SCH ×6 (00:26→20:23)
[2018-11-02] MEDS: ALBUTEROL HFA 8 GM INHALER INH SCH ×4 (01:07→19:39)
[2018-11-02] MEDS: IPRATROPIUM (HFA) 12.9 GM INHALER INH SCH ×4 (01:07→19:38)
[2018-11-02] MEDS: ACCU-CHEK XX SCH (02:00)
[2018-11-02] MEDS: ACETYLCYSTEINE 20% 4 ML VIAL NEB PRN (02:43)
[2018-11-02] MEDS: FUROSEMIDE 40 MG INJ IV SCH ×2 (05:08→18:17)
[2018-11-02] MEDS: MIDAZOLAM (DRIP) 50 mg/50 mL 50 ML IV SCH ×2 (05:19→14:00)
--- NOTE | 2018-11-02 08:26 | PN ---
Date/Time of Note Date/Time of Note DATE: 11/02/18 TIME: 08:26 Assessment/Plan VTE Prophylaxis Risk score (from Ns)>0 risk: 9 [place] [facility] [place] No SCD contraindicated: other Pharmacological prophylaxis: LMWH Lines/Catheters IV Catheter Type (from Nrsg): PICC Line Central line still needed: Yes Urinary Cath still in place: Yes Reason Cath still needed: skin wounds contaminated by urine Assessment/Plan Assessment/Plan 1. Bradycardia - most likely sedation induced. Will wean propofol and transition to Precedex if needed. Will continue versed and fentanyl as BP/HR tolerate 2. Acute hypercapnic and hypoxemic respiratory failure secondary to diastolic CHF and/or pneumonia with underlying OHS and hypercapnia - Continue weaning PEEP and O2. PEEP at 14 and O2 at 70% - Pulmonology on board and appreciate consultation. Continue vent support with ARDS protocol. Weaning down PEEP and FIO2 as tolerated - ABG noted - Continue on Cefepime - Continue Lasix 3. Sepsis with fevers and tachycardia likely secondary to pneumonia - Continue cefepime - Single blood culture is positive for coag negative staph but is likely a contaminant 4. Severe morbid obesity - Lifestyle changes 5. Diabetes - Adjusted Lantus for better control 6. Disposition - Continue vent management per Pulm recommendations. Not safe for trach placement at time given high requirement PEEP and FIO2 Result Diagram: 11/01/18 0410 11/02/18 0315 Results 24hrs Laboratory Tests Test 11/01/18 12:23 11/01/18 17:24 11/01/18 19:57 11/01/18 20:42 Bedside Glucose 191 173 188 Blood Gas Blood arterial Specimen Source Arterial Blood 11/01/2018 9:55:1 Date Drawn 5 PM Arterial Blood pH 7.367 (Temp corrected) Arterial Blood 82.8 *H pCO2 (Temp correct) Arterial Blood 83.0 pO2 (Temp corrected) Arterial Blood 46.5 *H HCO3 Arterial Blood 16.4 H Base Excess Arterial Blood 95.2 Oxygen Saturation Danilo Test ACCEPTAB Arterial Blood Right Radial Gas Puncture Site Arterial 0.8 Blood Carboxyhemo globin Arterial Blood 0.2 Methemoglobin Blood Gas A-a O2 180.4 H Differential Oxyhemoglobin 94.2 Percent Blood Gas 37.0 Temperature Blood Gas 28.0 Respiration Rate Blood Gas Actual 29 Respiration Rate Blood Gas VENT - PC Modality FiO2 50.0 Blood Gas 0.8 Inspiratory Time Blood Gas Low 14.0 PEEP Setting Blood Gas N SERINA RN Critical Value Read Back Blood Gas D ROB [facility] Notified Whom Blood Gas 11/01/2018 10:06: Notified Time 47 PM Test 11/02/18 00:22 11/02/18 01:49 11/02/18 03:15 11/02/18 05:10 Bedside Glucose 186 236 H 183 Sodium Level 147 H Potassium Level 3.7 Chloride Level 93 L Carbon Dioxide 42 *H Level Anion Gap 12 Blood Urea 30 H Nitrogen Creatinine 0.51 L Est Glomerular > 60 Filtrat Rate mL/min Glucose Level 217 Calcium Level 9.7 Subjective 24 Hr Interval Summary Free Text/Dictation Patient more comfortable this am but bradycardic. Per nursing patient following commands and will wean sedation as tolerated. Exam/Review of Systems Exam Vitals Vital Signs Date Temp Pulse Resp B/P (MAP) Pulse Ox O2 O2 Flow FiO2 Time Delivery Rate 11/02/18 56 28 109/70 94 Mechanical 07:30 (83) Ventilator 11/02/18 70 05:06 11/02/18 98.2 04:00 Intake and Output 11/01/18 11/01/18 11/02/18 1515:00 23:00 07:00 IntakeIntake Total 622.528 ml 656.820 ml 719.185 ml OutputOutput Total 655 ml 1970 ml 1590 ml BalanceBalance -32.472 ml -1313.180 ml -870.815 ml Exam General: Remains intubated and sedated. no acute distress Eyes: EOMI, pupils reactive to light Neck: Supple Respiratory: Clear to auscultation bilaterally. diminished air entry. no wheezing or rhonchi Cardiovascular: regular rate and rhythm. no obvious murmurs Gastrointestinal: soft, non-tender to palpation, morbidly obese, bowel sounds heard but diminished. Skin: dryness to LE bilaterally with chronic skin changes Results Results 24hrs Laboratory Tests Test 11/01/18 08:26 11/01/18 12:23 11/01/18 17:24 11/01/18 19:57 Bedside Glucose 217 191 173 188 Test 11/01/18 20:42 11/02/18 00:22 11/02/18 01:49 11/02/18 03:15 Blood Gas Blood arterial Specimen Source Arterial Blood 11/01/2018 9:55:1 Date Drawn 5 PM Arterial Blood pH 7.367 (Temp corrected) Arterial Blood 82.8 *H pCO2 (Temp correct) Arterial Blood 83.0 pO2 (Temp corrected) Arterial Blood 46.5 *H HCO3 Arterial Blood 16.4 H Base Excess Arterial Blood 95.2 Oxygen Saturation Danilo Test ACCEPTAB Arterial Blood Right Radial Gas Puncture Site Arterial 0.8 Blood Carboxyhemo globin Arterial Blood 0.2 Methemoglobin Blood Gas A-a O2 180.4 H Differential Oxyhemoglobin 94.2 Percent Blood Gas 37.0 Temperature Blood Gas 28.0 Respiration Rate Blood Gas Actual 29 Respiration Rate Blood Gas VENT - PC Modality FiO2 50.0 Blood Gas 0.8 Inspiratory Time Blood Gas Low 14.0 PEEP Setting Blood Gas Jerod SMALLS RN Critical Value Read Back Blood Gas Clari [employer] Notified Whom Blood Gas 11/01/2018 10:06: Notified Time 47 PM Bedside Glucose 186 236 H Sodium Level 147 H Potassium Level 3.7 Chloride Level 93 L Carbon Dioxide 42 *H Level Anion Gap 12 Blood Urea 30 H Nitrogen Creatinine 0.51 L Est Glomerular > 60 Filtrat Rate mL/min Glucose Level 217 Calcium Level 9.7 Test 11/02/18 05:10 Bedside Glucose 183 Medications Medication Current Medications IV Flush (NS 3 ml) 3 ml PER PROTOCOL IV ; Start 10/17/18 at 15:30 Hydromorphone HCl (Dilaudid) 0.5 mg Q4H PRN IV SEVERE PAIN LEVEL 7-10 Last adm inistered on 11/01/18 01:27; Admin Dose 0.5 MG; Start 10/17/18 at 15:30 Furosemide (Lasix) 40 mg BID DIURETICS IV Last administered on 11/02/18 05:08; Admin Dose 40 MG; Start 10/19/18 at 10:30 Nystatin (Nystatin Powder) 1 applic BID TOP Last administered on 11/01/18 21:02; Admin Dose 1 APPLIC; Start 10/19/18 at 21:00 Enoxaparin Sodium (Lovenox) 60 mg DAILY SC Last administered on 11/01/18 08:55; Admin Dose 60 MG; Start 10/21/18 at 09:00 Ipratropium Carpenter (Atrovent Hfa) 4 puff Q6H RESP THERAPY INH Last administered on 1/27/19at 01:07; Admin Dose 4 PUFF; Start 10/20/18 at 20:00 Albuterol (Ventolin Hfa) 4 puff Q6H RESP THERAPY INH Last administered on 11/02/18at 01:07; Admin Dose 4 PUFF; Start 10/20/18 at 20:00 Diagnostic Test (Pha) (Accu-Chek) 1 ea 02 XX Last administered on 11/02/18at 02:00; Admin Dose 1 EA; Start 10/21/18 at 02:00 Miscellaneous Information 1 ea NOTE XX ; Start 10/20/18 at 16:30 Glucose (Glutose) 15 gm Q15M PRN PO DECREASED GLUCOSE; Start 10/20/18 at 16:30 Glucose (Glutose) 22.5 gm Q15M PRN PO DECREASED GLUCOSE; Start 10/20/18 at 16:30 Dextrose (D50w Syringe) 25 ml Q15M PRN IV DECREASED GLUCOSE; Start 10/20/18 at 16:30 Dextrose (D50w Syringe) 50 ml Q15M PRN IV DECREASED GLUCOSE; Start 10/20/18 at 16:30 Glucagon (Glucagen) 1 mg Q15M PRN IM DECREASED GLUCOSE; Start 10/20/18 at 16:30 Glucose (Glutose) 15 gm Q15M PRN BUCCAL DECREASED GLUCOSE; Start 10/20/18 at 16:30 IV Flush (NS 10 ml) 10 ml PRN PRN IV IV PROTOCOL; Start 10/20/18 at 16:30 Midazolam HCl 50 ml @ 1 mls/hr TITRATE IV Last administered on 11/02/18at 05:19; Admin Dose 4 MLS/HR; Start 10/22/18 at 02:30 Cefepime HCl 50 ml @ 100 mls/hr Q12 IVPB Last administered on 11/01/18at 21:52; Admin Dose 100 MLS/HR; Start 10/22/18 at 11:00 Fentanyl 1000 mcg/ Sodium Chloride 100 ml @ 2.5 mls/hr TITRATE IV Last administered on 11/01/18at 23:49; Admin Dose 5 MLS/HR; Start 10/22/18 at 11:30 Docusate Sodium (Colace Liquid Cup) 100 mg BID GTB Last administered on 11/01/18at 20:54; Admin Dose 100 MG; Start 10/22/18 at 21:00 Acetaminophen (Tylenol Tab) 650 mg Q6H PRN PO MILD PAIN(1-3)OR ELEVATED TEMP Last administered on 10/25/18 06:33; Admin Dose 650 MG; Start 10/23/18 at 20:30 Methylprednisolone Sodium Succinate (Solu-Medrol) 40 mg Q6 IV Last administered on 11/02/18 05:08; Admin Dose 40 MG; Start 10/27/18 at 12:00 Insulin Aspart (Novolog Insulin Pen) NOVOLOG *MODERATE* ALGORI... Q4 SC Last administered on 11/02/18 05:12; Admin Dose 4 UNIT; Start 10/27/18 at 21:00 Lisinopril (Zestril) 20 mg DAILY NGT Last administered on 11/01/18 08:54; Admin Dose 20 MG; Start 10/30/18 at 10:00 Famotidine (Pepcid) 20 mg Q12 GTB Last administered on 11/01/18 20:54; Admin Dose 20 MG; Start 10/31/18 at 21:00 Bisacodyl (Dulcolax Supp) 10 mg Q24H PRN [place] CONSTIPATION Last administered on 10/31/18 13:52; Admin Dose 10 MG; Start 10/31/18 at 11:30 Sodium Biphosphate/ Sodium Phosphate (Fleet Enema) 133 ml Q24H PRN [place] CONSTIPATION; Start 10/31/18 at 11:30 Lorazepam (Ativan) 2 mg Q4H PRN GTB ANXIETY Last administered on 10/31/18 14:52; Admin Dose 2 MG; Start 10/31/18 at 12:00 Insulin Glargine (Lantus) 30 units BID@0800,2000 SC Last administered on 11/01/18 20:00; Admin Dose 30 UNITS; Start 10/31/18 at 13:00 Propofol 100 ml @ 7.909 mls/ hr Q12H IV Last administered on 11/02/18 05:08; Admin Dose 15.818 MLS/HR; Start 11/01/18 at 09:00 Acetylcysteine (Mucomyst) 3 ml Q6H RESP THERAPY PRN NEB WHEEZING AND RESP DISTRESS Last administered on 11/02/18 02:43; Admin Dose 3 ML; Start 11/01/18 at 23:00 Hydralazine HCl (Apresoline) 10 mg Q4H PRN IV ELEVATED SYSTOLIC BP Last admin istered on 11/02/18at 00:21; Admin Dose 10 MG; Start 11/02/18 at 00:30 Acetylcysteine (Mucomyst) 1 ml Q6H RESP THERAPY NEB ; Start 11/02/18 at 08:00 CLAUDIA TIDWELL MD Nov 02, 2018 08:26
[2018-11-02] MEDS: DOCUSATE SODIUM 10 MG/ML (10ML CUP) GTB SCH ×2 (09:20→20:24)
[2018-11-02] MEDS: ENOXAPARIN 60 MG/0.6 ML SYG SC SCH (09:21)
[2018-11-02] MEDS: LISINOPRIL 20 MG TAB NGT SCH (09:22)
[2018-11-02] MEDS: FAMOTIDINE 20 MG TAB GTB SCH ×2 (09:22→20:24)
[2018-11-02] MEDS: BISACODYL 10 MG SUPP PR PRN (09:28)
[2018-11-02] MEDS: CEFEPIME 2GM/50 ML (PMX) 50 ML IVPB SCH ×2 (09:28→20:28)
[2018-11-02] MEDS: NYSTATIN 30 GM POWDER BTL TOP SCH ×2 (09:30→20:28)
[2018-11-02] MEDS: INSULIN GLARGINE [LANTus] (100 UNITS/ML) SYG SC SCH ×2 (09:30→20:21)
--- NOTE | 2018-11-02 09:46 | CONS ---
Assessment/Plan Assessment/Plan Assessment/Plan (Daily) Chest x-ray showing improving bilateral pulmonary edema as well as pneumonia. Ventilator setting; AC of 28, pressure control mode of ventilation. 70% FiO2 14 of PEEP. Patient is currently on propofol 20 mics per kilogram per minute, Versed 5 mg/h. Assessment and recommendations; 1. Patient admitted for recurrent hypoxemic and hypercapnic respiratory failure from pneumonia as well as CHF. Chest x-ray from today showing significant improvement. Patient's oxygenation also has improved. 2. Underlying morbid obesity with obesity/hypoventilation syndrome. 3. History of diabetes and hypertension. Continue on supportive care. Obtain ABG. Further recommendations once ABG is performed. Once FiO2 is safely wean down to 50% then patient can undergo tracheostomy. Overall prognosis remains guarded though. 35 minutes of critical care time was spent evaluating the patient. Consultation Date/Type/Reason Admit Date/Time Oct 17, 2018 at 14:17 Initial Consult Date 10/18/18 Type of Consult Pulmonary/critical care Patient is a 52-year-old male who was brought into the hospital because of shortness of breath. Patient was in respiratory failure and required intubation. ABG was done which showed severe hypercapnia. By the time I saw the patient, patient is orally intubated and sedated. History was obtained from medical record as well as from patient's sister who was present in the room. Past medical history; 1. Chronic renal insufficiency. 2. Morbid obesity. Likely underlying sleep apnea syndrome. 3. Diabetes. 4. Hypertension. Medications; reviewed. Patient is currently on insulin drip at 7 units/h, propofol 20 mics per kilogram per minute. Other medications were reviewed as well. Allergies; none. Social history; positive for alcohol abuse and smoking. Family history; he is single, has 3 children. Patient is with his sisters who take care of him. Occupational history; patient is on medical leave. Review of system; unable to be obtained. General exam; middle-aged male, morbidly obese, orally intubated, sedated, currently in no distress. Date/Time of Note DATE: 11/02/18 TIME: 09:44 24 HR Interval Summary Free Text/Dictation Patient's condition is critical. Currently on pressure control mode of ventilation because of high airway pressures. Patient however has remained hemodynamically stable. General exam; middle-aged male, morbidly obese, on ventilator via endotracheal tube. Sedated. Currently in no distress. Exam/Review of Systems Exam Vitals Vital Signs Date Temp Pulse Resp B/P (MAP) Pulse Ox O2 O2 Flow FiO2 Time Delivery Rate 11/02/18 46 28 139/96 96 Mechanical 08:30 (110) Ventilator 11/02/18 98.0 08:00 11/02/18 70 05:06 Intake and Output 11/01/18 11/01/18 11/02/18 1515:00 23:00 07:00 IntakeIntake Total 622.528 ml 656.820 ml 719.185 ml OutputOutput Total 655 ml 1970 ml 1590 ml BalanceBalance -32.472 ml -1313.180 ml -870.815 ml Exam HEENT exam; supple neck, orally intubated. Patient has fair dentition. No neck masses. JVD difficult to see because of short neck. Pupils are small bilaterally. Chest exam; diminished breath sounds bilaterally. S1-S2 audible, no murmurs. Regular rhythm. Abdomen exam; soft, protuberant. Organomegaly difficult to assess. Bowel sounds audible. Extremity exam; trace edema with chronic lower extremity skin changes. CUPOLA PATCHER exam; patient is sedated. Results Result Diagram: 11/01/18 0410 11/02/18 0315 Results 24hrs Laboratory Tests Test 11/01/18 12:23 11/01/18 17:24 11/01/18 19:57 11/01/18 20:42 Bedside Glucose 191 173 188 Blood Gas Blood arterial Specimen Source Arterial Blood 11/01/2018 9:55:1 Date Drawn 5 PM Arterial Blood pH 7.367 (Temp corrected) Arterial Blood 82.8 *H pCO2 (Temp correct) Arterial Blood 83.0 pO2 (Temp corrected) Arterial Blood 46.5 *H HCO3 Arterial Blood 16.4 H Base Excess Arterial Blood 95.2 Oxygen Saturation Danilo Test ACCEPTAB Arterial Blood Right Radial Gas Puncture Site Arterial 0.8 Blood Carboxyhemo globin Arterial Blood 0.2 Methemoglobin Blood Gas A-a O2 180.4 H Differential Oxyhemoglobin 94.2 Percent Blood Gas 37.0 Temperature Blood Gas 28.0 Respiration Rate Blood Gas Actual 29 Respiration Rate Blood Gas VENT - PC Modality FiO2 50.0 Blood Gas 0.8 Inspiratory Time Blood Gas Low 14.0 PEEP Setting Blood Gas N WEST RN Critical Value Read Back Blood Gas D ROB FISHING ACCESSORIES MAKER Notified Whom Blood Gas 11/01/2018 10:06: Notified Time 47 PM Test 11/02/18 00:22 11/02/18 01:49 11/02/18 03:15 11/02/18 05:10 Bedside Glucose 186 236 H 183 Sodium Level 147 H Potassium Level 3.7 Chloride Level 93 L Carbon Dioxide 42 *H Level Anion Gap 12 Blood Urea 30 H Nitrogen Creatinine 0.51 L Est Glomerular > 60 Filtrat Rate mL/min Glucose Level 217 Calcium Level 9.7 Medications Medication Current Medications IV Flush (NS 3 ml) 3 ml PER PROTOCOL IV ; Start 10/17/18 at 15:30 Hydromorphone HCl (Dilaudid) 0.5 mg Q4H PRN IV SEVERE PAIN LEVEL 7-10 Last administered on 11/01/18at 01:27; Admin Dose 0.5 MG; Start 10/17/18 at 15:30 Furosemide (Lasix) 40 mg BID DIURETICS IV Last administered on 11/02/18 05:08; Admin Dose 40 MG; Start 10/19/18 at 10:30 Nystatin (Nystatin Powder) 1 applic BID TOP Last administered on 11/02/18at 0 9:30; Admin Dose 1 APPLIC; Start 10/19/18 at 21:00 Enoxaparin Sodium (Lovenox) 60 mg DAILY SC Last administered on 11/02/18at 09:21; Admin Dose 60 MG; Start 10/21/18 at 09:00 Ipratropium [place] (Atrovent Hfa) 4 puff Q6H RESP THERAPY INH Last administered on 11/02/18 01:07; Admin Dose 4 PUFF; Start 10/20/18 at 20:00 Albuterol (Ventolin Hfa) 4 puff Q6H RESP THERAPY INH Last administered on 10/08 01:07; Admin Dose 4 PUFF; Start 10/20/18 at 20:00 Diagnostic Test (Pha) (Accu-Chek) 1 ea 02 XX Last administered on 11/02/18at 02:00; Admin Dose 1 EA; Start 10/21/18 at 02:00 Miscellaneous Information 1 ea NOTE XX ; Start 10/20/18 at 16:30 Glucose (Glutose) 15 gm Q15M PRN PO DECREASED GLUCOSE; Start 10/20/18 at 16:30 Glucose (Glutose) 22.5 gm Q15M PRN PO DECREASED GLUCOSE; Start 10/20/18 at 16:30 Dextrose (D50w Syringe) 25 ml Q15M PRN IV DECREASED GLUCOSE; Start 10/20/18 at 16:30 Dextrose (D50w Syringe) 50 ml Q15M PRN IV DECREASED GLUCOSE; Start 10/20/18 at 16:30 Glucagon (Glucagen) 1 mg Q15M PRN IM DECREASED GLUCOSE; Start 10/20/18 at 16:30 Glucose (Glutose) 15 gm Q15M PRN BUCCAL DECREASED GLUCOSE; Start 10/20/18 at 16:30 IV Flush (NS 10 ml) 10 ml PRN PRN IV IV PROTOCOL; Start 10/20/18 at 16:30 Midazolam HCl 50 ml @ 1 mls/hr TITRATE IV Last administered on 11/02/18 05:19; Admin Dose 4 MLS/HR; Start 10/22/18 at 02:30 Cefepime HCl 50 ml @ 100 mls/hr Q12 IVPB Last administered on 11/02/18at 09:28; Admin Dose 100 MLS/HR; Start 10/22/18 at 11:00 Fentanyl 1000 mcg/ Sodium Chloride 100 ml @ 2.5 mls/hr TITRATE IV Last administered on 11/01/18at 23:49; Admin Dose 5 MLS/HR; Start 10/22/18 at 11:30 Docusate Sodium (Colace Liquid Cup) 100 mg BID GTB Last administered on at 09:20; Admin Dose 100 MG; Start 10/22/18 at 21:00 Acetaminophen (Tylenol Tab) 650 mg Q6H PRN PO MILD PAIN(1-3)OR ELEVATED TEMP Last administered on 10/25/18 06:33; Admin Dose 650 MG; Start 10/23/18 at 20:30 Methylprednisolone Sodium Succinate (Solu-Medrol) 40 mg Q6 IV Last administered on 11/02/18at 05:08; Admin Dose 40 MG; Start 10/27/18 at 12:00 Insulin Aspart (Novolog Insulin Pen) NOVOLOG *MODERATE* ALGORI... Q4 SC Last administered on 11/02/18at 09:33; Admin Dose 2 UNIT; Start 10/27/18 at 21:00 Lisinopril (Zestril) 20 mg DAILY NGT Last administered on 11/02/18 09:22; Admin Dose 20 MG; Start 10/30/18 at 10:00 Famotidine (Pepcid) 20 mg Q12 GTB Last administered on 11/02/18 09:22; Admin Dose 20 MG; Start 10/31/18 at 21:00 Bisacodyl (Dulcolax Supp) 10 mg Q24H PRN [place] CONSTIPATION Last administered on 11/02/18 09:28; Admin Dose 10 MG; Start 10/31/18 at 11:30 Sodium Biphosphate/ Sodium Phosphate (Fleet Enema) 133 ml Q24H PRN [place] CONSTIPATION Last administered on 11/02/18 09:28; Admin Dose 133 ML; Start 10/31/18 at 11:30 Lorazepam (Ativan) 2 mg Q4H PRN GTB ANXIETY Last administered on 10/31/18 14:52; Admin Dose 2 MG; Start 10/31/18 at 12:00 Insulin Glargine (Lantus) 30 units BID@0800,2000 SC Last administered on 11/02/18 09:30; Admin Dose 30 UNITS; Start 10/31/18 at 13:00 Propofol 100 ml @ 7.909 mls/ hr Q12H IV Last administered on 11/02/18 05:08; Admin Dose 15.818 MLS/HR; Start 11/01/18 at 09:00 Acetylcysteine (Mucomyst) 3 ml Q6H RESP THERAPY PRN NEB WHEEZING AND RESP DISTRESS Last administered on 11/02/18 02:43; Admin Dose 3 ML; Start 11/01/18 at 23:00 Hydralazine HCl (Apresoline) 10 mg Q4H PRN IV ELEVATED SYSTOLIC BP Last administered on 11/02/18 00:21; Admin Dose 10 MG; Start 11/02/18 at 00:30 Acetylcysteine (Mucomyst) 1 ml Q6H RESP THERAPY NEB ; Start 11/02/18 at 08:00 Dexmedetomidine HCl 200 mcg/ Sodium Chloride 50 ml @ 13.18 mls/ hr TITRATE IV ; Start 11/02/18 at 10:00 ETTA BRANTLEY Nov 02, 2018 09:46
[2018-11-02] MEDS ORDERED: DEXMEDETOMIDINE HCL 200 MCG in SOD CHLORIDE 0.9% 48 ML IV SCH (10:00)
[2018-11-02] MEDS: ACETYLCYSTEINE 20% 4 ML VIAL NEB SCH ×3 (12:00→19:39)
[2018-11-02] MEDS: LORAZEPAM 1 MG TAB GTB PRN ×2 (13:00→20:26)
[2018-11-02] MEDS: FENTAnyl 1,000 MCG in SOD CHLORIDE 0.9% 80 ML IV SCH ×2 (14:00→23:25)
[2018-11-03] VITALS (44 sets, daily range): BP systolic 104–168; BP diastolic 65–103; PULSE 49–110; RESP 0–33
[2018-11-03] MEDS: PROPOFOL 100 ML IV SCH ×13 (00:46→23:41)
[2018-11-03] MEDS: METHYLPREDNISOLONE 40 MG INJ IV SCH ×5 (00:46→23:40)
[2018-11-03] MEDS: INSULIN ASPART [NOVOLOG] 3 ML PEN SC SCH ×6 (01:21→20:15)
[2018-11-03] MEDS: ACETYLCYSTEINE 20% 4 ML VIAL NEB SCH ×4 (01:27→19:23)
[2018-11-03] MEDS: IPRATROPIUM (HFA) 12.9 GM INHALER INH SCH ×4 (01:27→19:23)
[2018-11-03] MEDS: ALBUTEROL HFA 8 GM INHALER INH SCH ×4 (01:27→19:23)
[2018-11-03] MEDS: ACCU-CHEK XX SCH (02:00)
[2018-11-03] MEDS: FUROSEMIDE 40 MG INJ IV SCH ×2 (05:15→17:41)
--- NOTE | 2018-11-03 07:46 | CONS ---
Assessment/Plan Assessment/Plan Assessment/Plan (Daily) Chest x-ray from today is pending. Ventilator setting; assist control of 28, pressure-controlled. PEEP of 14, 70% FiO2. Patient is currently on fentanyl 100 mics per hour. Propofol 40 mics per kilogram per minute. Assessment and recommendations; 1. Patient admitted for recurrent respiratory failure because underlying chronic hypercapnic respiratory failure due to obesity/hypoventilation syndrome. 2. Possibly pneumonia with interval improvement. 3. CHF. With interval improvement as well. 4. History of diabetes and hypertension. Discontinue cefepime. Obtain ABG. Obtain CBC and CMP panel as well. Further recommendations once ABG is performed. Patient likely will need to have a trac heostomy performed. Currently on fairly high PEEP and FiO2 to facilitate safe tracheostomy procedure. Consultation Date/Type/Reason Admit Date/Time Oct 17, 2018 at 14:17 Initial Consult Date 10/18/18 Type of Consult Pulmonary/critical care Patient is a 52-year-old male who was brought into the hospital because of shortness of breath. Patient was in respiratory failure and required intubation. ABG was done which showed severe hypercapnia. By the time I saw the patient, patient is orally intubated and sedated. History was obtained from medical record as well as from patient's sister who was present in the room. Past medical history; 1. Chronic renal insufficiency. 2. Morbid obesity. Likely underlying sleep apnea syndrome. 3. Diabetes. 4. Hypertension. Medications; reviewed. Patient is currently on insulin drip at 7 units/h, propofol 20 mics per kilogram per minute. Other medications were reviewed as well. Allergies; none. Social history; positive for alcohol abuse and smoking. Family history; he is single, has 3 children. Patient is with his sisters who take care of him. Occupational history; patient is on medical leave. Review of system; unable to be obtained. General exam; middle-aged male, morbidly obese, orally intubated, sedated, currently in no distress. Date/Time of Note DATE: 11/03/18 TIME: 07:42 24 HR Interval Summary Free Text/Dictation Patient's condition remains critical. However oxygenation is improving. Patient has remained hemodynamically stable. Also exhibiting stable mental status off sedation. General exam; middle-aged male, morbidly obese, orally intubated and sedated. Currently in no distress. Exam/Review of Systems Exam Vitals Vital Signs Date Temp Pulse Resp B/P (MAP) Pulse Ox O2 O2 Flow FiO2 Time Delivery Rate 11/03/18 63 28 141/90 100 06:00 (107) 11/03/18 70 05:16 11/03/18 Mechanical 05:00 Ventilator 11/03/18 98.5 04:00 Intake and Output 11/02/18 11/02/18 11/03/18 1515:00 23:00 07:00 IntakeIntake Total 587.5 ml 792.866 ml 732.094 ml OutputOutput Total 1110 ml 1160 ml 580 ml BalanceBalance -522.5 ml -367.134 ml 152.094 ml Exam HEENT exam; supple neck, JVD difficult to see because of short neck. Patient has fair dentition. Orally intubated. Pupils are small bilaterally. No neck masses. Chest exam; diminished but clear breath sounds. S1-S2 audible, no murmurs. Regular rhythm. Abdomen exam; protuberant. Bowel sounds audible. Organomegaly difficult to assess because of body habitus. Extremity exam; no peripheral edema. Chronic lower extremity skin changes. 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 Results Result Diagram: 11/01/18 0410 11/02/18 0315 Results 24hrs Laboratory Tests Test 11/02/18 09:26 11/02/18 09:42 11/02/18 13:21 11/02/18 18:17 Bedside Glucose 158 149 173 Blood Gas Blood arterial Specimen Source Arterial Blood 11/02/2018 10:30: Date Drawn 00 AM Arterial Blood pH 7.447 (Temp corrected) Arterial Blood 63.6 H pCO2 (Temp correct) Arterial Blood 87.8 pO2 (Temp corrected) Arterial Blood 42.9 *H HCO3 Arterial Blood 15.3 H Base Excess Arterial Blood 96.7 Oxygen Saturation Danilo Test ACCEPTAB Arterial Blood Right Radial Gas Puncture Site Arterial 0.8 Blood Carboxyhemo globin Arterial Blood 0.2 Methemoglobin Blood Gas A-a O2 342.9 H Differential Oxyhemoglobin 95.7 Percent Blood Gas 37.0 Temperature Blood Gas 28.0 Respiration Rate Blood Gas Actual 28 Respiration Rate Blood Gas VENT - PC Modality FiO2 70.0 Blood Gas 0.80 Inspiratory Time Blood Gas Low 14.0 PEEP Setting Blood Gas 45.0 Inspiratory Pressure Blood Gas Y GARY RN Critical Value Read Back Blood Gas DT Notified Whom Blood Gas 11/02/2018 10:53: Notified Time 00 AM Test 11/02/18 20:18 11/03/18 01:17 11/03/18 04:35 Bedside Glucose 165 152 145 Medications Medication Current Medications IV Flush (NS 3 ml) 3 ml PER PROTOCOL IV ; Start 10/17/18 at 15:30 Hydromorphone HCl (Dilaudid) 0.5 mg Q4H PRN IV SEVERE PAIN LEVEL 7-10 Last administered on 11/01/18at 01:27; Admin Dose 0.5 MG; Start 10/17/18 at 15:30 Furosemide (Lasix) 40 mg BID DIURETICS IV Last administered on 11/03/18 05:15; Admin Dose 40 MG; Start 10/19/18 at 10:30 Nystatin (Nystatin Powder) 1 applic BID TOP Last administered on 11/02/18at 20:28; Admin Dose 1 APPLIC; Start 10/19/18 at 21:00 Enoxaparin Sodium (Lovenox) 60 mg DAILY SC Last administered on 11/02/18at 09:21; Admin Dose 60 MG; Start 10/21/18 at 09:00 Ipratropium [place] (Atrovent Hfa) 4 puff Q6H RESP THERAPY INH Last administered on 11/03/18 01:27; Admin Dose 4 PUFF; Start 10/20/18 at 20:00 Albuterol (Ventolin Hfa) 4 puff Q6H RESP THERAPY INH Last administered on 11/03/18 01:27; Admin Dose 4 PUFF; Start 10/20/18 at 20:00 Diagnostic Test (Pha) (Accu-Chek) 1 ea 02 XX Last administered on 11/02/18at 02:00; Admin Dose 1 EA; Start 10/21/18 at 02:00 Miscellaneous Information 1 ea NOTE XX ; Start 10/20/18 at 16:30 Glucose (Glutose) 15 gm Q15M PRN PO DECREASED GLUCOSE; Start 10/20/18 at 16:30 Glucose (Glutose) 22.5 gm Q15M PRN PO DECREASED GLUCOSE; Start 10/20/18 at 16:30 Dextrose (D50w Syringe) 25 ml Q15M PRN IV DECREASED GLUCOSE; Start 10/20/18 at 16:30 Dextrose (D50w Syringe) 50 ml Q15M PRN IV DECREASED GLUCOSE; Start 10/20/18 at 16:30 Glucagon (Glucagen) 1 mg Q15M PRN IM DECREASED GLUCOSE; Start 10/20/18 at 16:30 Glucose (Glutose) 15 gm Q15M PRN BUCCAL DECREASED GLUCOSE; Start 10/20/18 at 16:30 IV Flush (NS 10 ml) 10 ml PRN PRN IV IV PROTOCOL; Start 10/20/18 at 16:30 Midazolam HCl 50 ml @ 1 mls/hr TITRATE IV Last administered on 11/02/18at 14:00; Admin Dose 5 MLS/HR; Start 10/22/18 at 02:30 Cefepime HCl 50 ml @ 100 mls/hr Q12 IVPB Last administered on 11/02/18at 20:28; Admin Dose 100 MLS/HR; Start 10/22/18 at 11:00 Fentanyl 1000 mcg/ Sodium Chloride 100 ml @ 2.5 mls/hr TITRATE IV Last administered on 11/02/18at 23:25; Admin Dose 10 MLS/HR; Start 10/22/18 at 11:30 Docusate Sodium (Colace Liquid Cup) 100 mg BID GTB Last administered on 11/02/18at 20:24; Admin Dose 100 MG; Start 10/22/18 at 21:00 Acetaminophen (Tylenol Tab) 650 mg Q6H PRN PO MILD PAIN(1-3)OR ELEVATED TEMP Last administered on 10/25/18at 06:33; Admin Dose 650 MG; Start 10/23/18 at 20:30 Methylprednisolone Sodium Succinate (Solu-Medrol) 40 mg Q6 IV Last administered on 11/03/18at 05:15; Admin Dose 40 MG; Start 10/27/18 at 12:00 Insulin Aspart (Novolog Insulin Pen) NOVOLOG *MODERATE* [place]GORI... Q4 SC Last administered on 11/03/18at 04:52; Admin Dose 2 UNIT; Start 10/27/18 at 21:00 Lisinopril (Zestril) 20 mg DAILY NGT Last administered on 11/02/18at 09:22; Admin Dose 20 MG; Start 10/30/18 at 10:00 Famotidine (Pepcid) 20 mg Q12 GTB Last administered on 11/02/18 20:24; Admin Dose 20 MG; Start 10/31/18 at 21:00 Bisacodyl (Dulcolax Supp) 10 mg Q24H PRN [place] CONSTIPATION Last administered on 11/02/18 09:28; Admin Dose 10 MG; Start 10/31/18 at 11:30 Sodium Biphosphate/ Sodium Phosphate (Fleet Enema) 133 ml Q24H PRN [place] CONSTIPATION Last administered on 11/02/18 09:28; Admin Dose 133 ML; Start 10/31/18 at 11:30 Lorazepam (Ativan) 2 mg Q4H PRN GTB ANXIETY Last administered on 11/02/18 20:26; Admin Dose 2 MG; Start 10/31/18 at 12:00 Insulin Glargine (Lantus) 30 units BID@0800,2000 SC Last administered on 11/02/18 20:21; Admin Dose 30 UNITS; Start 10/31/18 at 13:00 Propofol 100 ml @ 7.909 mls/ hr Q12H IV Last administered on 11/03/18 06:49; Admin Dose 63.274 MLS/HR; Start 11/01/18 at 09:00 Acetylcysteine (Mucomyst) 3 ml Q6H RESP THERAPY PRN NEB WHEEZING AND RESP DIS TRESS Last administered on 11/02/18 02:43; Admin Dose 3 ML; Start 11/01/18 at 23:00 Hydralazine HCl (Apresoline) 10 mg Q4H PRN IV ELEVATED SYSTOLIC BP Last administered on 11/02/18 13:30; Admin Dose 10 MG; Start 11/02/18 at 00:30 Acetylcysteine (Mucomyst) 1 ml Q6H RESP THERAPY NEB Last administered on 11/03/18 01:27; Admin Dose 1 ML; Start 11/02/18 at 08:00 Dexmedetomidine HCl 200 mcg/ Sodium Chloride 50 ml @ 13.18 mls/ hr TITRATE IV ; Start 11/02/18 at 10:00 ETTA BRANTLEY Nov 03, 2018 07:46
[2018-11-03] MEDS: DOCUSATE SODIUM 10 MG/ML (10ML CUP) GTB SCH ×2 (08:22→20:13)
[2018-11-03] MEDS: FAMOTIDINE 20 MG TAB GTB SCH ×2 (08:22→20:13)
[2018-11-03] MEDS: LISINOPRIL 20 MG TAB NGT SCH (08:22)
[2018-11-03] MEDS: NYSTATIN 30 GM POWDER BTL TOP SCH ×2 (08:23→20:13)
[2018-11-03] MEDS: INSULIN GLARGINE [LANTus] (100 UNITS/ML) SYG SC SCH ×2 (08:25→20:15)
[2018-11-03] MEDS: ENOXAPARIN 60 MG/0.6 ML SYG SC SCH (08:27)
[2018-11-03] MEDS: FENTAnyl 1,000 MCG in SOD CHLORIDE 0.9% 80 ML IV SCH ×2 (09:10→19:13)
--- NOTE | 2018-11-03 16:06 | PN ---
Date/Time of Note Date/Time of Note DATE: 11/03/18 TIME: 16:04 Assessment/Plan VTE Prophylaxis Risk score (from Ns)>0 risk: 11 Pharmacological prophylaxis: LMWH Assessment/Plan Hospital Course 1. Bradycardia - most likely sedation induced. Will wean propofol and transition to Precedex if needed. Will continue versed and fentanyl as BP/HR tolerate 2. Acute hypercapnic and hypoxemic respiratory failure secondary to diastolic CHF and/or pneumonia with underlying OHS and hypercapnia - Continue weaning PEEP and O2 - Pulmonology on board and appreciate consultation. Continue vent support with ARDS protocol. Weaning down PEEP and FIO2 as tolerated - ABG noted - Continue on Cefepime - Continue Lasix 3. Sepsis with fevers and tachycardia likely secondary to pneumonia - Continue cefepime - Single blood culture is positive for coag negative staph but is likely a contaminant 4. Severe morbid obesity - Lifestyle changes 5. Diabetes - Adjusted Lantus for better control Prophylaxis: Lovenox Disposition - Continue vent management per Pulm recommendations. Not safe for trach placement at time given high requirement PEEP and FIO2 Result Diagram: 11/03/18 0809 11/03/18 0808 Results 24hrs Laboratory Tests Test 11/02/18 18:17 11/02/18 20:18 11/03/18 01:17 11/03/18 04:35 Bedside Glucose 173 165 152 145 Test 11/03/18 07:39 11/03/18 08:08 11/03/18 08:09 11/03/18 08:24 Blood Gas Blood arterial Specimen Source Arterial Blood 11/03/2018 8:02:0 Date Drawn 0 AM Arterial Blood pH 7.433 (Temp corrected) Arterial Blood 66.6 H pCO2 (Temp correct) Arterial Blood 143.7 H pO2 (Temp corrected) Arterial Blood 43.5 *H HCO3 Arterial Blood 15.5 H Base Excess Arterial Blood 98.4 H Oxygen Saturation Danilo Test ACCEPTAB Arterial Blood Left Radial Gas Puncture Site Arterial 0.9 Blood Carboxyhemo globin Arterial Blood 0.1 Methemoglobin Blood Gas A-a O2 283.8 H Differential Oxyhemoglobin 97.4 Percent Blood Gas 37.0 Temperature Blood Gas 28.0 Respiration Rate Blood Gas Actual 28 Respiration Rate Blood Gas VENT - PC Modality FiO2 70.0 Blood Gas Low 14.0 PEEP Setting Blood Gas ANDREW CAMEJO Critical Value Read Back Blood Gas TM Notified Whom Blood Gas 11/03/2018 8:18:0 Notified Time 0 AM Sodium Level 143 Potassium Level 3.8 Chloride Level 93 L Carbon Dioxide 43 *H Level Anion Gap 7 Blood Urea 26 H Nitrogen Creatinine 0.50 L Est Glomerular > 60 Filtrat Rate mL/min Glucose Level 179 Calcium Level 9.2 Total Bilirubin 0.5 Direct Bilirubin 0.00 Indirect 0.5 Bilirubin Aspartate Amino 18 Transf (AST/SGOT) Alanine 26 Aminotransferase (ALT/SGPT) Alkaline 96 Phosphatase Total Protein 6.5 Albumin 3.2 L Globulin 3.30 H Albumin/Globulin 0.96 Ratio White Blood Count 11.3 H Red Blood Count 5.15 Hemoglobin 13.6 L Hematocrit 45.8 Mean Corpuscular 88.9 Volume Mean Corpuscular 26.4 L Hemoglobin Mean Corpuscular 29.7 L Hemoglobin Concen t Red Cell 17.8 H Distribution Width Platelet Count 356 Mean Platelet 11.7 H Volume Immature 0.500 H Granulocytes % Neutrophils % 85.9 H Lymphocytes % 8.4 L Monocytes % 5.0 Eosinophils % 0.1 Basophils % 0.1 Nucleated Red 0.0 Blood Cells % Immature 0.060 H Granulocytes # Neutrophils # 9.7 H Lymphocytes # 1.0 Monocytes # 0.6 Eosinophils # 0.0 Basophils # 0.0 Nucleated Red 0.0 Blood Cells # Bedside Glucose 153 Test 11/03/18 12:45 Bedside Glucose 174 Subjective 24 Hr Interval Summary Subjective hx not possible: pt non-verbal Exam/Review of Systems Exam Vitals Vital Signs Date Temp Pulse Resp B/P (MAP) Pulse Ox O2 O2 Flow FiO2 Time Delivery Rate 11/03/18 101 28 97 60 15:00 11/03/18 137/88 Mechanical 13:00 (104) Ventilator 11/03/18 98.5 12:00 Intake and Output 11/02/18 11/02/18 11/03/18 1515:00 23:00 07:00 IntakeIntake Total 587.5 ml 792.866 ml 832.694 ml OutputOutput Total 1110 ml 1160 ml 1180 ml BalanceBalance -522.5 ml -367.134 ml -347.306 ml Constitutional: non-verbal ENMT: intubated Respiratory: clear to auscultation Cardiovascular: regular rate and rhythm Gastrointestinal: soft; No distended Musculoskeletal: nl extremities to inspection Results Results 24hrs Laboratory Tests Test 11/02/18 18:17 11/02/18 20:18 11/03/18 01:17 11/03/18 04:35 Bedside Glucose 173 165 152 145 Test 11/03/18 07:39 11/03/18 08:08 11/03/18 08:09 11/03/18 08:24 Blood Gas Blood arterial Specimen Source Arterial Blood 11/03/2018 8:02:0 Date Drawn 0 AM Arterial Blood pH 7.433 (Temp corrected) Arterial Blood 66.6 H pCO2 (Temp correct) Arterial Blood 143.7 H pO2 (Temp corrected) Arterial Blood 43.5 *H HCO3 Arterial Blood 15.5 H Base Excess Arterial Blood 98.4 H Oxygen Saturation Danilo Test ACCEPTAB Arterial Blood Left Radial Gas Puncture Site Arterial 0.9 Blood Carboxyhemo globin Arterial Blood 0.1 Methemoglobin Blood Gas A-a O2 283.8 H Differential Oxyhemoglobin 97.4 Percent Blood Gas 37.0 Temperature Blood Gas 28.0 Respiration Rate Blood Gas Actual 28 Respiration Rate Blood Gas VENT - PC Modality FiO2 70.0 Blood Gas Low 14.0 PEEP Setting Blood Gas ANDREW CAMEJO Critical Value Read Back Blood Gas TM Notified Whom Blood Gas 11/03/2018 8:18:0 Notified Time 0 AM Sodium Level 143 Potassium Level 3.8 Chloride Level 93 L Carbon Dioxide 43 *H Level Anion Gap 7 Blood Urea 26 H Nitrogen Creatinine 0.50 L Est Glomerular > 60 Filtrat Rate mL/min Glucose Level 179 Calcium Level 9.2 Total Bilirubin 0.5 Direct Bilirubin 0.00 Indirect 0.5 Bilirubin Aspartate Amino 18 Transf (AST/SGOT) Alanine 26 Aminotransferase (ALT/SGPT) Alkaline 96 Phosphatase Total Protein 6.5 Albumin 3.2 L Globulin 3.30 H Albumin/Globulin 0.96 Ratio White Blood Count 11.3 H Red Blood Count 5.15 Hemoglobin 13.6 L Hematocrit 45.8 Mean Corpuscular 88.9 Volume Mean Corpuscular 26.4 L Hemoglobin Mean Corpuscular 29.7 L Hemoglobin Concen t Red Cell 17.8 H Distribution Width Platelet Count 356 Mean Platelet 11.7 H Volume Immature 0.500 H Granulocytes % Neutrophils % 85.9 H Lymphocytes % 8.4 L Monocytes % 5.0 Eosinophils % 0.1 Basophils % 0.1 Nucleated Red 0.0 Blood Cells % Immature 0.060 H Granulocytes # Neutrophils # 9.7 H Lymphocytes # 1.0 Monocytes # 0.6 Eosinophils # 0.0 Basophils # 0.0 Nucleated Red 0.0 Blood Cells # Bedside Glucose 153 Test 11/03/18 12:45 Bedside Glucose 174 Medications Medication Current Medications IV Flush (NS 3 ml) 3 ml PER PROTOCOL IV ; Start 10/17/18 at 15:30 Hydromorphone HCl (Dilaudid) 0.5 mg Q4H PRN IV SEVERE PAIN LEVEL 7-10 Last administered on 11/01/18at 01:27; Admin Dose 0.5 MG; Start 10/17/18 at 15:30 Furosemide (Lasix) 40 mg BID DIURETICS IV Last administered on 11/03/18at 05:15; Admin Dose 40 MG; Start 10/19/18 at 10:30 Nystatin (Nystatin Powder) 1 applic BID TOP Last administered on 11/03/18 08 :23; Admin Dose 1 APPLIC; Start 10/19/18 at 21:00 Enoxaparin Sodium (Lovenox) 60 mg DAILY SC Last administered on 11/03/18at 08:27; Admin Dose 60 MG; Start 10/21/18 at 09:00 Ipratropium [place] (Atrovent Hfa) 4 puff Q6H RESP THERAPY INH Last administered on 11/03/18at 14:08; Admin Dose 4 PUFF; Start 10/20/18 at 20:00 Albuterol (Ventolin Hfa) 4 puff Q6H RESP THERAPY INH Last administered on 11/03at 14:08; Admin Dose 4 PUFF; Start 10/20/18 at 20:00 Diagnostic Test (Pha) (Accu-Chek) 1 ea 02 XX Last administered on 11/02/18at 02:00; Admin Dose 1 EA; Start 10/21/18 at 02:00 Miscellaneous Information 1 ea NOTE XX ; Start 10/20/18 at 16:30 Glucose (Glutose) 15 gm Q15M PRN PO DECREASED GLUCOSE; Start 10/20/18 at 16:30 Glucose (Glutose) 22.5 gm Q15M PRN PO DECREASED GLUCOSE; Start 10/20/18 at 16:30 Dextrose (D50w Syringe) 25 ml Q15M PRN IV DECREASED GLUCOSE; Start 10/20/18 at 16:30 Dextrose (D50w Syringe) 50 ml Q15M PRN IV DECREASED GLUCOSE; Start 10/20/18 at 16:30 Glucagon (Glucagen) 1 mg Q15M PRN IM DECREASED GLUCOSE; Start 10/20/18 at 16:30 Glucose (Glutose) 15 gm Q15M PRN BUCCAL DECREASED GLUCOSE; Start 10/20/18 at 16:30 IV Flush (NS 10 ml) 10 ml PRN PRN IV IV PROTOCOL; Start 10/20/18 at 16:30 Midazolam HCl 50 ml @ 1 mls/hr TITRATE IV Last administered on 11/02/18at 14:00; Admin Dose 5 MLS/HR; Start 10/22/18 at 02:30 Fentanyl 1000 mcg/ Sodium Chloride 100 ml @ 2.5 mls/hr TITRATE IV Last administered on 11/03/18at 09:10; Admin Dose 2.5 MLS/HR; Start 10/22/18 at 11:30 Docusate Sodium (Colace Liquid Cup) 100 mg BID GTB Last administered on 11/03/18 08:22; Admin Dose 100 MG; Start 10/22/18 at 21:00 Acetaminophen (Tylenol Tab) 650 mg Q6H PRN PO MILD PAIN(1-3)OR ELEVATED TEMP Last administered on 10/25/18 06:33; Admin Dose 650 MG; Start 10/23/18 at 20:30 Methylprednisolone Sodium Succinate (Solu-Medrol) 40 mg Q6 IV Last administered on 11/03/18 12:37; Admin Dose 40 MG; Start 10/27/18 at 12:00 Insulin Aspart (Novolog Insulin Pen) NOVOLOG *MODERATE* ALGORI... Q4 SC Last administered on 11/03/18 12:47; Admin Dose 2 UNIT; Start 10/27/18 at 21:00 Lisinopril (Zestril) 20 mg DAILY NGT Last administered on 11/03/18 08:22; Admin Dose 20 MG; Start 10/30/18 at 10:00 Famotidine (Pepcid) 20 mg Q12 GTB Last administered on 11/03/18 08:22; Admin Dose 20 MG; Start 10/31/18 at 21:00 Bisacodyl (Dulcolax Supp) 10 mg Q24H PRN NM CONSTIPATION Last administered on 11/02/18 09:28; Admin Dose 10 MG; Start 10/31/18 at 11:30 Sodium Biphosphate/ Sodium Phosphate (Fleet Enema) 133 ml Q24H PRN NM CONSTIPATION Last administered on 11/02/18 09:28; Admin Dose 133 ML; Start 10/31/18 at 11:30 Lorazepam (Ativan) 2 mg Q4H PRN GTB ANXIETY Last administered on 11/02/18 20:26; Admin Dose 2 MG; Start 10/31/18 at 12:00 Insulin Glargine (Lantus) 30 units BID@0800,2000 SC Last administered on 11/03/18 08:25; Admin Dose 30 UNITS; Start 10/31/18 at 13:00 Propofol 100 ml @ 7.909 mls/ hr Q12H IV Last administered on 11/03/18 14:52; Admin Dose 63.274 MLS/HR; Start 11/01/18 at 09:00 Acetylcysteine (Mucomyst) 3 ml Q6H RESP THERAPY PRN NEB WHEEZING AND RESP DISTRESS Last administered on 11/02/18 02:43; Admin Dose 3 ML; Start 11/01/18 at 23:00 Hydralazine HCl (Apresoline) 10 mg Q4H PRN IV ELEVATED SYSTOLIC BP Last administered on 11/02/18 13:30; Admin Dose 10 MG; Start 11/02/18 at 00:30 Acetylcysteine (Mucomyst) 1 ml Q6H RESP THERAPY NEB Last administered on 11/03/18 14:09; Admin Dose 1 ML; Start 11/02/18 at 08:00 Dexmedetomidine HCl 200 mcg/ Sodium Chloride 50 ml @ 13.18 mls/ hr TITRATE IV ; Start 11/02/18 at 10:[address] [place] Nov 03, 2018 16:05
[2018-11-04] VITALS (35 sets, daily range): BP systolic 101–172; BP diastolic 58–105; PULSE 47–125; RESP 19–34
[2018-11-04] MEDS: INSULIN ASPART [NOVOLOG] 3 ML PEN SC SCH ×6 (00:18→20:36)
[2018-11-04] MEDS: IPRATROPIUM (HFA) 12.9 GM INHALER INH SCH ×4 (01:20→19:32)
[2018-11-04] MEDS: ALBUTEROL HFA 8 GM INHALER INH SCH ×4 (01:20→19:32)
[2018-11-04] MEDS: ACETYLCYSTEINE 20% 4 ML VIAL NEB SCH ×4 (01:20→19:32)
[2018-11-04] MEDS: ACCU-CHEK XX SCH (02:00)
[2018-11-04] MEDS: PROPOFOL 100 ML IV SCH ×9 (02:57→22:15)
[2018-11-04] MEDS: hydrALAzine 20 MG INJ IV PRN (04:22)
[2018-11-04] MEDS: METHYLPREDNISOLONE 40 MG INJ IV SCH ×4 (05:19→23:37)
[2018-11-04] MEDS: FUROSEMIDE 40 MG INJ IV SCH ×2 (05:21→17:59)
--- NOTE | 2018-11-04 08:31 | CONS ---
Assessment/Plan Assessment/Plan Assessment/Plan (Daily) Ventilator setting; AC of 28, pressure control. 60% FiO2. PEEP of 10. Patient is currently on propofol 30 mics per kilogram per minute, Versed 6 mg/h, fentanyl 100 mics per hour. Assessment recommendations; 1. Patient with history of chronic type II respiratory failure admitted for recurrent respiratory failure requiring intubation with persistent hypercapnia, however hypoxemia has markedly improved with significant reduction in PEEP. 2. Chest x-ray showing persistent pulmonary edema though improved in the interval. 3. History of diabetes and hypertension. 4. Status post treatment for presumed pneumonia. Patient now off antibiotics. Obtain follow-up ABG. Further recommendation once ABG is performed. Patient currently is now cleared to have a tracheostomy performed. Overall prognosis remains guarded. Consultation Date/Type/Reason Admit Date/Time Oct 17, 2018 at 14:17 Initial Consult Date 10/18/18 Type of Consult Pulmonary/critical care Patient is a 52-year-old male who was brought into the hospital because of shortness of breath. Patient was in respiratory failure and required intubation. ABG was done which showed severe hypercapnia. By the time I saw the patient, patient is orally intubated and sedated. History was obtained from medical record as well as from patient's sister who was present in the room. Past medical history; 1. Chronic renal insufficiency. 2. Morbid obesity. Likely underlying sleep apnea syndrome. 3. Diabetes. 4. Hypertension. Medications; reviewed. Patient is currently on insulin drip at 7 units/h, propofol 20 mics per kilogram per minute. Other medications were reviewed as well. Allergies; none. Social history; positive for alcohol abuse and smoking. Family history; he is single, has 3 children. Patient is with his sisters who take care of him. Occupational history; patient is on medical leave. Review of system; unable to be obtained. General exam; middle-aged male, morbidly obese, orally intubated, sedated, currently in no distress. Date/Time of Note DATE: 11/04/18 TIME: 08:28 24 HR Interval Summary Free Text/Dictation Patient's condition is critical. Oxygenation is continually improving. Patient has remained hemodynamically stable. General exam; middle-aged male, morbidly obese, orally intubated, sedated, currently in no distress. Exam/Review of Systems Exam Vitals Vital Signs Date Temp Pulse Resp B/P (MAP) Pulse Ox O2 O2 Flow FiO2 Time Delivery Rate 11/04/18 117 08:00 11/04/18 24 129/82 100 Mechanical 06:00 (98) Ventilator 11/04/18 60 05:31 11/04/18 98.3 04:00 Intake and Output 11/03/18 11/03/18 11/04/18 1515:00 23:00 07:00 IntakeIntake Total 1091.295 ml 1080.479 ml 779.237 ml OutputOutput Total 1600 ml 1900 ml 595 ml BalanceBalance -508.705 ml -819.521 ml 184.237 ml Exam HEENT exam; supple neck, JVD difficult to see because of short neck. Patient has fair dentition. Orally intubated. Pupils are small bilaterally. No neck masses. Chest exam; diminished breath sounds throughout. S1-S2 audible, no murmurs. Regular rhythm. Abdomen exam; protuberant. Bowel sounds audible. Organomegaly difficult to assess. Extremity exam; no peripheral edema. Patient does have chronic lower extremity skin changes. MACHINE SHORTHAND REPORTER exam; patient is sedated. Results Result Diagram: 11/04/18 0441 11/04/18 0441 Results 24hrs Laboratory Tests Test 11/03/18 12:45 11/03/18 17:39 11/03/18 20:11 11/04/18 00:15 Bedside Glucose 174 196 194 214 Test 11/04/18 04:21 11/04/18 04:41 Bedside Glucose 171 White Blood Count 13.6 #H Red Blood Count 5.46 Hemoglobin 14.4 Hematocrit 48.7 Mean Corpuscular 89.2 Volume Mean Corpuscular 26.4 L Hemoglobin Mean Corpuscular 29.6 L Hemoglobin Concent Red Cell 17.5 H Distribution Width Platelet Count 398 Mean Platelet Volume 12.0 H Immature 0.600 H Granulocytes % Neutrophils % 75.3 Lymphocytes % 15.6 Monocytes % 8.3 Eosinophils % 0.1 Basophils % 0.1 Nucleated Red Blood 0.0 Cells % Immature 0.080 H Granulocytes # Neutrophils # 10.3 H Lymphocytes # 2.1 Monocytes # 1.1 H Eosinophils # 0.0 Basophils # 0.0 Nucleated Red Blood 0.0 Cells # Sodium Level 144 Potassium Level 3.6 Chloride Level 90 L Carbon Dioxide Level 45 *H Anion Gap 9 Blood Urea Nitrogen 23 H Creatinine 0.49 L Est Glomerular > 60 Filtrat Rate mL/min Glucose Level 184 Calcium Level 9.2 Medications Medication Current Medications IV Flush (NS 3 ml) 3 ml PER PROTOCOL IV ; Start 10/17/18 at 15:30 Hydromorphone HCl (Dilaudid) 0.5 mg Q4H PRN IV SEVERE PAIN LEVEL 7-10 Last ad ministered on 11/01/18at 01:27; Admin Dose 0.5 MG; Start 10/17/18 at 15:30 Furosemide (Lasix) 40 mg BID DIURETICS IV Last administered on 11/04/18 05:21; Admin Dose 40 MG; Start 10/19/18 at 10:30 Nystatin (Nystatin Powder) 1 applic BID TOP Last administered on 11/03/18at 20:13; Admin Dose 1 APPLIC; Start 10/19/18 at 21:00 Enoxaparin Sodium (Lovenox) 60 mg DAILY SC Last administered on 11/03/18at 08:27; Admin Dose 60 MG; Start 10/21/18 at 09:00 Ipratropium [place] (Atrovent Hfa) 4 puff Q6H RESP THERAPY INH Last administered on 11/04/18 01:20; Admin Dose 4 PUFF; Start 10/20/18 at 20:00 Albuterol (Ventolin Hfa) 4 puff Q6H RESP THERAPY INH Last administered on 11/04/18 01:20; Admin Dose 4 PUFF; Start 10/20/18 at 20:00 Diagnostic Test (Pha) (Accu-Chek) 1 ea 02 XX Last administered on 11/02/18at 02:00; Admin Dose 1 EA; Start 10/21/18 at 02:00 Miscellaneous Information 1 ea NOTE XX ; Start 10/20/18 at 16:30 Glucose (Glutose) 15 gm Q15M PRN PO DECREASED GLUCOSE; Start 10/20/18 at 16:30 Glucose (Glutose) 22.5 gm Q15M PRN PO DECREASED GLUCOSE; Start 10/20/18 at 16:30 Dextrose (D50w Syringe) 25 ml Q15M PRN IV DECREASED GLUCOSE; Start 10/20/18 at 16:30 Dextrose (D50w Syringe) 50 ml Q15M PRN IV DECREASED GLUCOSE; Start 10/20/18 at 16:30 Glucagon (Glucagen) 1 mg Q15M PRN IM DECREASED GLUCOSE; Start 10/20/18 at 16:30 Glucose (Glutose) 15 gm Q15M PRN BUCCAL DECREASED GLUCOSE; Start 10/20/18 at 16:30 IV Flush (NS 10 ml) 10 ml PRN PRN IV IV PROTOCOL; Start 10/20/18 at 16:30 Midazolam HCl 50 ml @ 1 mls/hr TITRATE IV Last administered on 11/02/18at 14:00; Admin Dose 5 MLS/HR; Start 10/22/18 at 02:30 Fentanyl 1000 mcg/ Sodium Chloride 100 ml @ 2.5 mls/hr TITRATE IV Last admin istered on 11/03/18 19:13; Admin Dose 10 MLS/HR; Start 10/22/18 at 11:30 Docusate Sodium (Colace Liquid Cup) 100 mg BID GTB Last administered on 11/03/18 20:13; Admin Dose 100 MG; Start 10/22/18 at 21:00 Acetaminophen (Tylenol Tab) 650 mg Q6H PRN PO MILD PAIN(1-3)OR ELEVATED TEMP Last administered on 10/25/18at 06:33; Admin Dose 650 MG; Start 10/23/18 at 20:30 Methylprednisolone Sodium Succinate (Solu-Medrol) 40 mg Q6 IV Last administered on 11/04/18 05:19; Admin Dose 40 MG; Start 10/27/18 at 12:00 Insulin Aspart (Novolog Insulin Pen) NOVOLOG *MODERATE* ALGORI... Q4 SC Last administered on 11/04/18 04:26; Admin Dose 2 UNIT; Start 10/27/18 at 21:00 Lisinopril (Zestril) 20 mg DAILY NGT Last administered on 11/03/18 08:22; Admin Dose 20 MG; Start 10/30/18 at 10:00 Famotidine (Pepcid) 20 mg Q12 GTB Last administered on 11/03/18 20:13; Admin Dose 20 MG; Start 10/31/18 at 21:00 Bisacodyl (Dulcolax Supp) 10 mg Q24H PRN IN CONSTIPATION Last administered on 11/02/18at 09:28; Admin Dose 10 MG; Start 10/31/18 at 11:30 Sodium Biphosphate/ Sodium Phosphate (Fleet Enema) 133 ml Q24H PRN IN CONSTIPATION Last administered on 11/02/18 09:28; Admin Dose 133 ML; Start 10/31/18 at 11:30 Lorazepam (Ativan) 2 mg Q4H PRN GTB ANXIETY Last administered on 11/02/18 20:26; Admin Dose 2 MG; Start 10/31/18 at 12:00 Insulin Glargine (Lantus) 30 units BID@0800,2000 SC Last administered on 10/08 20:15; Admin Dose 30 UNITS; Start 10/31/18 at 13:00 Propofol 100 ml @ 7.909 mls/ hr Q12H IV Last administered on 11/04/18 05:45; Admin Dose 47.455 MLS/HR; Start 11/01/18 at 09:00 Acetylcysteine (Mucomyst) 3 ml Q6H RESP THERAPY PRN NEB WHEEZING AND RESP DISTRESS Last administered on 11/02/18 02:43; Admin Dose 3 ML; Start 11/01/18 at 23:00 Hydralazine HCl (Apresoline) 10 mg Q4H PRN IV ELEVATED SYSTOLIC BP Last administered on 11/04/18 04:22; Admin Dose 10 MG; Start 11/02/18 at 00:30 Acetylcysteine (Mucomyst) 1 ml Q6H RESP THERAPY NEB Last administered on 11/04/18 01:20; Admin Dose 1 ML; Start 11/02/18 at 08:00 Dexmedetomidine HCl 200 mcg/ Sodium Chloride 50 ml @ 13.18 mls/ hr TITRATE IV ; Start 11/02/18 at 10:00 ETTA BRANTLEY Nov 04, 2018 08:31
[2018-11-04] MEDS: DOCUSATE SODIUM 10 MG/ML (10ML CUP) GTB SCH ×2 (08:48→20:37)
[2018-11-04] MEDS: LISINOPRIL 20 MG TAB NGT SCH (08:49)
[2018-11-04] MEDS: MIDAZOLAM (DRIP) 50 mg/50 mL 50 ML IV SCH ×3 (08:49→20:13)
[2018-11-04] MEDS: FAMOTIDINE 20 MG TAB GTB SCH ×2 (08:49→20:38)
[2018-11-04] MEDS: NYSTATIN 30 GM POWDER BTL TOP SCH ×2 (08:50→20:38)
[2018-11-04] MEDS: ENOXAPARIN 60 MG/0.6 ML SYG SC SCH (08:53)
[2018-11-04] MEDS: FENTAnyl 1,000 MCG in SOD CHLORIDE 0.9% 80 ML IV SCH ×2 (08:53→20:59)
[2018-11-04] MEDS: INSULIN GLARGINE [LANTus] (100 UNITS/ML) SYG SC SCH ×2 (08:54→20:35)
[2018-11-04] MEDS ORDERED: LIDOCAINE 1% (MDV) 20 ML INJ SC STA (10:21)
--- NOTE | 2018-11-04 10:37 | OPR ---
Date/Time of Note Date/Time of Note DATE: 11/04/18 TIME: 10:34 Operative Report Procedure Date: Nov 04, 2018 Preoperative Diagnosis Possible right or left mainstem mucous plugging Postoperative Diagnosis Essentially normal bronchoscopy Operation/Procedure Performed Bronchoscopy Surgeon see signature line Sizing Machine Tender RN as well as respiratory therapist. Anesthesia Type: moderate sedation Estimated Blood Loss: none Transfusion none Specimen None Grafts/Implants none Complications none Indications Patient with high peak airway pressure copy is to rule out mucous plugging. Procedure Description Patient already was on ventilator. Patient was on propofol for sedation. Informed consent was obtained earlier over the phone with the patient's next of kin. Patient was given 5 mL of 1% lidocaine through the endotracheal tube for topical anesthesia. Bronchoscope was introduced via endotracheal tube. Distal trachea was normal. Nasima was sharp and well defined. The scope was then introduced into the right mainstem bronchus with evaluation of the right upper lobe, bronchus intermedius, middle lobe, superior segment of the lower lobe as well as lower lobes there were all normal. The scope was introduced into the left mainstem bronchus with evaluation of left upper lobe, lingula, superior segment of the lower lobe and lower lobes there were all patent with very minimal mucus which was suctioned out readily. The scope was then withdrawn. Start time was 10:30 AM, finish time was 10:34 AM. Patient maintained stable vital signs, O2 saturation as well as airway pressures. ETTA BRANTLEY Nov 04, 2018 10:37
[2018-11-04] MEDS: LACTULOSE 30ML CUP PO SCH ×2 (13:36→20:37)
--- NOTE | 2018-11-04 15:49 | PN ---
Date/Time of Note Date/Time of Note DATE: 11/04/18 TIME: 15:47 Assessment/Plan VTE Prophylaxis Risk score (from Ns)>0 risk: 10 Pharmacological prophylaxis: LMWH Assessment/Plan Hospital Course 1. Bradycardia - most likely sedation induced. Will wean propofol and transition to Precedex if needed. Will continue versed and fentanyl as BP/HR tolerate 2. Acute hypercapnic and hypoxemic respiratory failure secondary to diastolic CHF and/or pneumonia with underlying OHS and hypercapnia - Continue weaning PEEP and O2 - Pulmonology on board and appreciate consultation. Continue vent support with ARDS protocol. Weaning down PEEP and FIO2 as tolerated - ABG noted - Continue on Cefepime - Continue Lasix 3. Sepsis with fevers and tachycardia likely secondary to pneumonia - Continue cefepime - Single blood culture is positive for coag negative staph but is likely a contaminant 4. Severe morbid obesity - Lifestyle changes 5. Diabetes - Adjusted Lantus for better control Prophylaxis: Lovenox Disposition - Continue vent management per Pulm recommendations. Not safe for trach placement at time given high requirement PEEP and FIO2 Result Diagram: 11/04/18 0441 11/04/18 0441 Results 24hrs Laboratory Tests Test 11/03/18 17:39 11/03/18 20:11 11/04/18 00:15 11/04/18 04:21 Bedside Glucose 196 194 214 171 Test 11/04/18 04:41 11/04/18 07:58 11/04/18 08:29 11/04/18 13:35 White Blood Count 13.6 #H Red Blood Count 5.46 Hemoglobin 14.4 Hematocrit 48.7 Mean Corpuscular 89.2 Volume Mean Corpuscular 26.4 L Hemoglobin Mean Corpuscular 29.6 L Hemoglobin Concen t Red Cell 17.5 H Distribution Width Platelet Count 398 Mean Platelet 12.0 H Volume Immature 0.600 H Granulocytes % Neutrophils % 75.3 Lymphocytes % 15.6 Monocytes % 8.3 Eosinophils % 0.1 Basophils % 0.1 Nucleated Red 0.0 Blood Cells % Immature 0.080 H Granulocytes # Neutrophils # 10.3 H Lymphocytes # 2.1 Monocytes # 1.1 H Eosinophils # 0.0 Basophils # 0.0 Nucleated Red 0.0 Blood Cells # Sodium Level 144 Potassium Level 3.6 Chloride Level 90 L Carbon Dioxide 45 *H Level Anion Gap 9 Blood Urea 23 H Nitrogen Creatinine 0.49 L Est Glomerular > 60 Filtrat Rate mL/min Glucose Level 184 Calcium Level 9.2 Blood Gas Blood arterial Specimen Source Arterial Blood 11/04/2018 8:35:5 Date Drawn 4 AM Arterial Blood pH 7.341 L (Temp corrected) Arterial Blood 85.4 *H pCO2 (Temp correct) Arterial Blood 99.9 pO2 (Temp corrected) Arterial Blood 45.1 *H HCO3 Arterial Blood 14.4 H Base Excess Arterial Blood 97.0 Oxygen Saturation Danilo Test ACCEPTAB Arterial Blood Left Radial Gas Puncture Site Arterial 0.8 Blood Carboxyhemo globin Arterial Blood 0.3 Methemoglobin Blood Gas A-a O2 234.0 H Differential Oxyhemoglobin 95.9 Percent Blood Gas 37.0 Temperature Blood Gas 42.0 Respiration Rate Blood Gas VENT - PC Modality FiO2 60.0 Blood Gas Low 10.0 PEEP Setting Blood Gas 28.0 Inspiratory Pressure Blood Gas ASHISH RN Critical Value Read Back Blood Gas TM Notified Whom Blood Gas 11/04/2018 8:51:1 Notified Time 5 AM Bedside Glucose 172 165 Subjective 24 Hr Interval Summary Subjective hx not possible: pt non-verbal Exam/Review of Systems Exam Vitals Vital Signs Date Temp Pulse Resp B/P (MAP) Pulse Ox O2 O2 Flow FiO2 Time Delivery Rate 11/04/18 52 28 136/87 91 Mechanical 15:00 (103) Ventilator 11/04/18 98.5 12:00 11/04/18 100 10:00 Intake and Output 11/03/18 11/03/18 11/04/18 1515:00 23:00 07:00 IntakeIntake Total 1091.295 ml 1080.479 ml 829.237 ml OutputOutput Total 1600 ml 1900 ml 795 ml BalanceBalance -508.705 ml -819.521 ml 34.237 ml Constitutional: non-verbal Respiratory: clear to auscultation Cardiovascular: regular rate and rhythm Gastrointestinal: soft; No distended Musculoskeletal: nl extremities to inspection Results Results 24hrs Laboratory Tests Test 11/03/18 17:39 11/03/18 20:11 11/04/18 00:15 11/04/18 04:21 Bedside Glucose 196 194 214 171 Test 11/04/18 04:41 11/04/18 07:58 11/04/18 08:29 11/04/18 13:35 White Blood Count 13.6 #H Red Blood Count 5.46 Hemoglobin 14.4 Hematocrit 48.7 Mean Corpuscular 89.2 Volume Mean Corpuscular 26.4 L Hemoglobin Mean Corpuscular 29.6 L Hemoglobin Concen t Red Cell 17.5 H Distribution Width Platelet Count 398 Mean Platelet 12.0 H Volume Immature 0.600 H Granulocytes % Neutrophils % 75.3 Lymphocytes % 15.6 Monocytes % 8.3 Eosinophils % 0.1 Basophils % 0.1 Nucleated Red 0.0 Blood Cells % Immature 0.080 H Granulocytes # Neutrophils # 10.3 H Lymphocytes # 2.1 Monocytes # 1.1 H Eosinophils # 0.0 Basophils # 0.0 Nucleated Red 0.0 Blood Cells # Sodium Level 144 Potassium Level 3.6 Chloride Level 90 L Carbon Dioxide 45 *H Level Anion Gap 9 Blood Urea 23 H Nitrogen Creatinine 0.49 L Est Glomerular > 60 Filtrat Rate mL/min Glucose Level 184 Calcium Level 9.2 Blood Gas Blood arterial Specimen Source Arterial Blood 11/04/2018 8:35:5 Date Drawn 4 AM Arterial Blood pH 7.341 L (Temp corrected) Arterial Blood 85.4 *H pCO2 (Temp correct) Arterial Blood 99.9 pO2 (Temp corrected) Arterial Blood 45.1 *H HCO3 Arterial Blood 14.4 H Base Excess Arterial Blood 97.0 Oxygen Saturation Danilo Test ACCEPTAB Arterial Blood Left Radial Gas Puncture Site Arterial 0.8 Blood Carboxyhemo globin Arterial Blood 0.3 Methemoglobin Blood Gas A-a O2 234.0 H Differential Oxyhemoglobin 95.9 Percent Blood Gas 37.0 Temperature Blood Gas 42.0 Respiration Rate Blood Gas VENT - PC Modality FiO2 60.0 Blood Gas Low 10.0 PEEP Setting Blood Gas 28.0 Inspiratory Pressure Blood Gas M.TIM RN Critical Value Read Back Blood Gas TM Notified Whom Blood Gas 11/04/2018 8:51:1 Notified Time 5 AM Bedside Glucose 172 165 Medications Medication Current Medications IV Flush (NS 3 ml) 3 ml PER PROTOCOL IV ; Start 10/17/18 at 15:30 Hydromorphone HCl (Dilaudid) 0.5 mg Q4H PRN IV SEVERE PAIN LEVEL 7-10 Last administered on 11/01/18at 01:27; Admin Dose 0.5 MG; Start 10/17/18 at 15:30 Furosemide (Lasix) 40 mg BID DIURETICS IV Last administered on 11/04/18at 05:21; Admin Dose 40 MG; Start 10/19/18 at 10:30 Nystatin (Nystatin Powder) 1 applic BID TOP Last administered on 11/04/18at 08:50; Admin Dose 1 APPLIC; Start 10/19/18 at 21:00 Enoxaparin Sodium (Lovenox) 60 mg DAILY SC Last administered on 11/04/18at 08:53; Admin Dose 60 MG; Start 10/21/18 at 09:00 Ipratropium [place] (Atrovent Hfa) 4 puff Q6H RESP THERAPY INH Last administered on 11/04/18at 13:27; Admin Dose 4 PUFF; Start 10/20/18 at 20:00 Albuterol (Ventolin Hfa) 4 puff Q6H RESP THERAPY INH Last administered on 11/04/18at 13:27; Admin Dose 4 PUFF; Start 10/20/18 at 20:00 Diagnostic Test (Pha) (Accu-Chek) 1 ea 02 XX Last administered on 11/02/18at 02:00; Admin Dose 1 EA; Start 10/21/18 at 02:00 Miscellaneous Information 1 ea NOTE XX ; Start 10/20/18 at 16:30 Glucose (Glutose) 15 gm Q15M PRN PO DECREASED GLUCOSE; Start 10/20/18 at 16:30 Glucose (Glutose) 22.5 gm Q15M PRN PO DECREASED GLUCOSE; Start 10/20/18 at 16:30 Dextrose (D50w Syringe) 25 ml Q15M PRN IV DECREASED GLUCOSE; Start 10/20/18 at 16:30 Dextrose (D50w Syringe) 50 ml Q15M PRN IV DECREASED GLUCOSE; Start 10/20/18 at 16:30 Glucagon (Glucagen) 1 mg Q15M PRN IM DECREASED GLUCOSE; Start 10/20/18 at 16:30 Glucose (Glutose) 15 gm Q15M PRN BUCCAL DECREASED GLUCOSE; Start 10/20/18 at 16:30 IV Flush (NS 10 ml) 10 ml PRN PRN IV IV PROTOCOL; Start 10/20/18 at 16:30 Midazolam HCl 50 ml @ 1 mls/hr TITRATE IV Last administered on 11/04/18at 15:25; Admin Dose 6 MLS/HR; Start 10/22/18 at 02:30 Fentanyl 1000 mcg/ Sodium Chloride 100 ml @ 2.5 mls/hr TITRATE IV Last administered on 11/04/18 08:53; Admin Dose 2.5 MLS/HR; Start 10/22/18 at 11:30 Docusate Sodium (Colace Liquid Cup) 100 mg BID GTB Last administered on 11/04/18 08:48; Admin Dose 100 MG; Start 10/22/18 at 21:00 Acetaminophen (Tylenol Tab) 650 mg Q6H PRN PO MILD PAIN(1-3)OR ELEVATED TEMP Last administered on 10/25/18 06:33; Admin Dose 650 MG; Start 10/23/18 at 20:30 Methylprednisolone Sodium Succinate (Solu-Medrol) 40 mg Q6 IV Last administered on 11/04/18 13:36; Admin Dose 40 MG; Start 10/27/18 at 12:00 Insulin Aspart (Novolog Insulin Pen) NOVOLOG *MODERATE* ALGORI... Q4 SC Last administered on 11/04/18 14:10; Admin Dose 2 UNIT; Start 10/27/18 at 21:00 Lisinopril (Zestril) 20 mg DAILY NGT Last administered on 11/04/18 08:49; Admin Dose 20 MG; Start 10/30/18 at 10:00 Famotidine (Pepcid) 20 mg Q12 GTB Last administered on 11/04/18 08:49; Admin Dose 20 MG; Start 10/31/18 at 21:00 Bisacodyl (Dulcolax Supp) 10 mg Q24H PRN [place]ATION Last administered on 11/02/18 09:28; Admin Dose 10 MG; Start 10/31/18 at 11:30 Sodium Biphosphate/ Sodium Phosphate (Fleet Enema) 133 ml Q24H PRN [place] Last administered on 11/02/18 09:28; Admin Dose 133 ML; Start 10/31/18 at 11:30 Lorazepam (Ativan) 2 mg Q4H PRN GTB ANXIETY Last administered on 11/02/18 20:26; Admin Dose 2 MG; Start 10/31/18 at 12:00 Insulin Glargine (Lantus) 30 units BID@0800,2000 SC Last administered on 11/04/18 08:54; Admin Dose 30 UNITS; Start 10/31/18 at 13:00 Propofol 100 ml @ 7.909 mls/ hr Q12H IV Last administered on 11/04/18 13:36; Admin Dose 47.455 MLS/HR; Start 11/01/18 at 09:00 Acetylcysteine (Mucomyst) 3 ml Q6H RESP THERAPY PRN NEB WHEEZING AND RESP DISTRESS Last administered on 11/02/18 02:43; Admin Dose 3 ML; Start 11/01/18 at 23:00 Hydralazine HCl (Apresoline) 10 mg Q4H PRN IV ELEVATED SYSTOLIC BP Last administered on 11/04/18 04:22; Admin Dose 10 MG; Start 11/02/18 at 00:30 Acetylcysteine (Mucomyst) 1 ml Q6H RESP THERAPY NEB Last administered on 11/04/18 13:27; Admin Dose 1 ML; Start 11/02/18 at 08:00 Dexmedetomidine HCl 200 mcg/ Sodium Chloride 50 ml @ 13.18 mls/ hr TITRATE IV ; Start 11/02/18 at 10:00 Lactulose (Enulose) 30 gm BID PO Last administered on 11/04/18 13:36; Admin Dose 30 GM; Start 11/04/18 at 13:[address] E[place] Nov 04, 2018 15:49
[2018-11-05] VITALS (35 sets, daily range): BP systolic 99–169; BP diastolic 53–122; PULSE 49–115; RESP 15–31
[2018-11-05] MEDS: INSULIN ASPART [NOVOLOG] 3 ML PEN SC SCH ×6 (01:01→20:57)
[2018-11-05] MEDS: ACCU-CHEK XX SCH (01:03)
[2018-11-05] MEDS: ALBUTEROL HFA 8 GM INHALER INH SCH ×4 (01:21→20:34)
[2018-11-05] MEDS: ACETYLCYSTEINE 20% 4 ML VIAL NEB SCH ×4 (01:21→20:34)
[2018-11-05] MEDS: IPRATROPIUM (HFA) 12.9 GM INHALER INH SCH ×4 (01:21→20:34)
[2018-11-05] MEDS: PROPOFOL 100 ML IV SCH ×8 (01:35→21:31)
[2018-11-05] MEDS: MIDAZOLAM (DRIP) 50 mg/50 mL 50 ML IV SCH ×3 (04:41→18:16)
[2018-11-05] MEDS: FENTAnyl 1,000 MCG in SOD CHLORIDE 0.9% 80 ML IV SCH ×2 (04:59→14:04)
[2018-11-05] MEDS: FUROSEMIDE 40 MG INJ IV SCH ×2 (05:30→18:14)
[2018-11-05] MEDS: METHYLPREDNISOLONE 40 MG INJ IV SCH ×3 (05:30→18:14)
[2018-11-05] MEDS: FAMOTIDINE 20 MG TAB GTB SCH ×2 (08:36→20:54)
[2018-11-05] MEDS: LISINOPRIL 20 MG TAB NGT SCH (08:36)
[2018-11-05] MEDS: DOCUSATE SODIUM 10 MG/ML (10ML CUP) GTB SCH ×2 (08:36→20:53)
[2018-11-05] MEDS: LACTULOSE 30ML CUP PO SCH ×2 (08:37→18:15)
[2018-11-05] MEDS: NYSTATIN 30 GM POWDER BTL TOP SCH ×2 (08:38→20:54)
[2018-11-05] MEDS: ENOXAPARIN 60 MG/0.6 ML SYG SC SCH (08:38)
[2018-11-05] MEDS: INSULIN GLARGINE [LANTus] (100 UNITS/ML) SYG SC SCH ×2 (08:43→20:25)
--- NOTE | 2018-11-05 08:58 | CONS ---
Assessment/Plan Assessment/Plan Assessment/Plan (Daily) Chest x-ray from today showing cardiomegaly with significant improvement in vascular congestion. Ventilator setting; AC of 20, pressure control. PEEP of 10, 60% FiO2. Patient is currently on propofol 20 mics per kilogram per minute, fentanyl 100 mics per hour, Versed 5 mg/h. Assessment recommendations; 1. Patient with history of morbid obesity and chronic type II respiratory failure admitted for severe hypoxemic and hypercapnic respiratory failure requiring intubation. Patient currently on pressure controlled mode of ventilation due to high airway pressures however there has been significant improvement in oxygenation status. Patient however still showing significant hypercapnia. 2. Status post bronchoscopy yesterday for evaluation of possible mucous plug, bronchoscopy was unremarkable. 3. Significant radiological improvement in pulmonary edema and pulmonary vascular congestion. 4. History of diabetes and hypertension. 5. Status post treatment for presumed pneumonia. Patient off antibiotics. Change ventilator settings, SIMV of 16, pressure support of 15, tidal volume 40 0, PEEP of 10. Obtain ABG in 1 hour. Patient likely will need to have a tracheostomy performed. Clinically patient now is stable to undergo the procedure. Overall prognosis remains guarded. 35 minutes of critical care time was spent evaluating the patient. Consultation Date/Type/Reason Admit Date/Time Oct 17, 2018 at 14:17 Initial Consult Date 10/18/18 Type of Consult Pulmonary/critical care Patient is a 52-year-old male who was brought into the hospital because of shortness of breath. Patient was in respiratory failure and required intubation. ABG was done which showed severe hypercapnia. By the time I saw the patient, patient is orally intubated and sedated. History was obtained from medical record as well as from patient's sister who was present in the room. Past medical history; 1. Chronic renal insufficiency. 2. Morbid obesity. Likely underlying sleep apnea syndrome. 3. Diabetes. 4. Hypertension. Medications; reviewed. Patient is currently on insulin drip at 7 units/h, propofol 20 mics per kilogram per minute. Other medications were reviewed as well. Allergies; none. Social history; positive for alcohol abuse and smoking. Family history; he is single, has 3 children. Patient is with his sisters who take care of him. Occupational history; patient is on medical leave. Review of system; unable to be obtained. General exam; middle-aged male, morbidly obese, orally intubated, sedated, currently in no distress. Date/Time of Note DATE: 11/05/18 TIME: 08:54 24 HR Interval Summary Free Text/Dictation Patient's condition remains critical. Patient however has remained hemodynamically stable. General exam; middle-aged male, morbidly obese, despite being on sedation patient is arousable. Currently no distress. Orally intubated. Exam/Review of Systems Exam Vitals Vital Signs Date Temp Pulse Resp B/P (MAP) Pulse Ox O2 O2 Flow FiO2 Time Delivery Rate 11/05/18 97 22 150/98 99 Mechanical 06:00 (115) Ventilator 11/05/18 60 05:10 11/05/18 98.6 05:00 Intake and Output 11/04/18 11/04/18 11/05/18 1515:00 23:00 07:00 IntakeIntake Total 966 ml 933.729 ml 897.185 ml OutputOutput Total 900 ml 2050 ml 350 ml BalanceBalance 66 ml -1116.271 ml 547.185 ml Exam H HEENT exam; supple neck, JVD difficult to see because of short neck. No thyromegaly. Orally intubated. Patient has fair dentition. Pupils are small bilaterally. No neck masses. Chest exam; diminished breath sounds throughout. S1-S2 audible, no murmurs. Regular rhythm. Abdomen exam; soft, protuberant. Organomegaly difficult to assess. Bowel sounds audible. Extremity exam; no peripheral edema. Patient does have chronic lower extremity skin changes. [employer] exam; patient is sedated but arousable. Results Result Diagram: 11/05/18 0503 11/05/18 0503 Results 24hrs Laboratory Tests Test 11/04/18 13:35 11/04/18 17:56 11/04/18 20:33 11/05/18 00:59 Bedside Glucose 165 157 162 207 Test 11/05/18 05:03 11/05/18 05:29 11/05/18 08:35 White Blood Count 10.9 H Red Blood Count 5.39 Hemoglobin 14.3 Hematocrit 47.6 Mean Corpuscular 88.3 Volume Mean Corpuscular 26.5 L Hemoglobin Mean Corpuscular 30.0 L Hemoglobin Concent Red Cell 18.3 H Distribution Width Platelet Count 373 Mean Platelet Volume 12.7 H Immature 0.500 H Granulocytes % Neutrophils % 73.8 Lymphocytes % 17.0 Monocytes % 8.4 Eosinophils % 0.2 Basophils % 0.1 Nucleated Red Blood 0.0 Cells % Immature 0.060 H Granulocytes # Neutrophils # 8.0 H Lymphocytes # 1.9 Monocytes # 0.9 Eosinophils # 0.0 Basophils # 0.0 Nucleated Red Blood 0.0 Cells # Sodium Level 141 Potassium Level 3.9 Chloride Level 92 L Carbon Dioxide Level 38 H Anion Gap 11 Blood Urea Nitrogen 25 H Creatinine 0.42 L Est Glomerular > 60 Filtrat Rate mL/min Glucose Level 233 H Calcium Level 9.0 Triglycerides Level 167 H Bedside Glucose 265 H 186 Medications Medication Current Medications IV Flush (NS 3 ml) 3 ml PER PROTOCOL IV ; Start 10/17/18 at 15:30 Hydromorphone HCl (Dilaudid) 0.5 mg Q4H PRN IV SEVERE PAIN LEVEL 7-10 Last admi nistered on 11/01/18 01:27; Admin Dose 0.5 MG; Start 10/17/18 at 15:30 Furosemide (Lasix) 40 mg BID DIURETICS IV Last administered on 11/05/18 05:30; Admin Dose 40 MG; Start 10/19/18 at 10:30 Nystatin (Nystatin Powder) 1 applic BID TOP Last administered on 11/05/18 08:38; Admin Dose 1 APPLIC; Start 10/19/18 at 21:00 Enoxaparin Sodium (Lovenox) 60 mg DAILY SC Last administered on 11/05/18at 0 8:38; Admin Dose 60 MG; Start 10/21/18 at 09:00 Ipratropium [place] (Atrovent Hfa) 4 puff Q6H RESP THERAPY INH Last administered on 11/05/18 01:21; Admin Dose 4 PUFF; Start 10/20/18 at 20:00 Albuterol (Ventolin Hfa) 4 puff Q6H RESP THERAPY INH Last administered on 11/05/18 01:21; Admin Dose 4 PUFF; Start 10/20/18 at 20:00 Diagnostic Test (Pha) (Accu-Chek) 1 ea 02 XX Last administered on 11/05/18 01:03; Admin Dose 1 EA; Start 10/21/18 at 02:00 Miscellaneous Information 1 ea NOTE XX ; Start 10/20/18 at 16:30 Glucose (Glutose) 15 gm Q15M PRN PO DECREASED GLUCOSE; Start 10/20/18 at 16:30 Glucose (Glutose) 22.5 gm Q15M PRN PO DECREASED GLUCOSE; Start 10/20/18 at 16:30 Dextrose (D50w Syringe) 25 ml Q15M PRN IV DECREASED GLUCOSE; Start 10/20/18 at 16:30 Dextrose (D50w Syringe) 50 ml Q15M PRN IV DECREASED GLUCOSE; Start 10/20/18 at 16:30 Glucagon (Glucagen) 1 mg Q15M PRN IM DECREASED GLUCOSE; Start 10/20/18 at 16:30 Glucose (Glutose) 15 gm Q15M PRN BUCCAL DECREASED GLUCOSE; Start 10/20/18 at 16:30 IV Flush (NS 10 ml) 10 ml PRN PRN IV IV PROTOCOL; Start 10/20/18 at 16:30 Midazolam HCl 50 ml @ 1 mls/hr TITRATE IV Last administered on 11/05/18at 04:41; Admin Dose 5 MLS/HR; Start 10/22/18 at 02:30 Fentanyl 1000 mcg/ Sodium Chloride 100 ml @ 2.5 mls/hr TITRATE IV Last adminis tered on 11/05/18at 04:59; Admin Dose 10 MLS/HR; Start 10/22/18 at 11:30 Docusate Sodium (Colace Liquid Cup) 100 mg BID GTB Last administered on 11/05/18 08:36; Admin Dose 100 MG; Start 10/22/18 at 21:00 Acetaminophen (Tylenol Tab) 650 mg Q6H PRN PO MILD PAIN(1-3)OR ELEVATED TEMP Last administered on 10/25/18at 06:33; Admin Dose 650 MG; Start 10/23/18 at 20:30 Methylprednisolone Sodium Succinate (Solu-Medrol) 40 mg Q6 IV Last administered on 11/05/18 05:30; Admin Dose 40 MG; Start 10/27/18 at 12:00 Insulin Aspart (Novolog Insulin Pen) NOVOLOG *MODERATE* ALGORI... Q4 SC Last administered on 11/05/18 08:42; Admin Dose 4 UNIT; Start 10/27/18 at 21:00 Lisinopril (Zestril) 20 mg DAILY NGT Last administered on 11/05/18 08:36; Admin Dose 20 MG; Start 10/30/18 at 10:00 Famotidine (Pepcid) 20 mg Q12 GTB Last administered on 11/05/18 08:36; Admin Dose 20 MG; Start 10/31/18 at 21:00 Bisacodyl (Dulcolax Supp) 10 mg Q24H PRN [place] CON[employer]ATION Last administered on 11/02/18 09:28; Admin Dose 10 MG; Start 10/31/18 at 11:30 Sodium Biphosphate/ Sodium Phosphate (Fleet Enema) 133 ml Q24H PRN [place] Last administered on 11/02/18 09:28; Admin Dose 133 ML; Start 10/31/18 at 11:30 Lorazepam (Ativan) 2 mg Q4H PRN GTB ANXIETY Last administered on 11/02/18 20:26; Admin Dose 2 MG; Start 10/31/18 at 12:00 Insulin Glargine (Lantus) 30 units BID@0800,2000 SC Last administered on 08:43; Admin Dose 30 UNITS; Start 10/31/18 at 13:00 Propofol 100 ml @ 7.909 mls/ hr Q12H IV Last administered on 11/05/18 08:48; Admin Dose 39.546 MLS/HR; Start 11/01/18 at 09:00 Acetylcysteine (Mucomyst) 3 ml Q6H RESP THERAPY PRN NEB WHEEZING AND RESP DISTRESS Last administered on 11/02/18 02:43; Admin Dose 3 ML; Start 11/01/18 at 23:00 Hydralazine HCl (Apresoline) 10 mg Q4H PRN IV ELEVATED SYSTOLIC BP Last administered on 11/04/18 04:22; Admin Dose 10 MG; Start 11/02/18 at 00:30 Acetylcysteine (Mucomyst) 1 ml Q6H RESP THERAPY NEB Last administered on 11/05/18 01:21; Admin Dose 1 ML; Start 11/02/18 at 08:00 Dexmedetomidine HCl 200 mcg/ Sodium Chloride 50 ml @ 13.18 mls/ hr TITRATE IV ; Start 11/02/18 at 10:00 Lactulose (Enulose) 30 gm BID PO Last administered on 11/05/18 08:37; Admin Dose 30 GM; Start 11/04/18 at 13:00 ETTA BRANTLEY Nov 05, 2018 08:58
--- NOTE | 2018-11-05 16:08 | PN ---
Date/Time of Note Date/Time of Note DATE: 11/05/18 TIME: 16:07 Assessment/Plan VTE Prophylaxis Risk score (from Nsg)>0 risk: 10 Pharmacological prophylaxis: LMWH Assessment/Plan Hospital Course 1. Bradycardia - most likely sedation induced. Will wean propofol and transition to Precedex if needed. Will continue versed and fentanyl as BP/HR tolerate 2. Acute hypercapnic and hypoxemic respiratory failure secondary to diastolic CHF and/or pneumonia with underlying OHS and hypercapnia - Continue weaning PEEP and O2 - Pulmonology on board and appreciate consultation. Continue vent support with ARDS protocol. Weaning down PEEP and FIO2 as tolerated - ABG noted - Continue on Cefepime - Continue Lasix 3. Sepsis with fevers and tachycardia likely secondary to pneumonia - Continue cefepime - Single blood culture is positive for coag negative staph but is likely a contaminant 4. Severe morbid obesity - Lifestyle changes 5. Diabetes - Adjusted Lantus for better control Prophylaxis: Lovenox Disposition - Continue vent management per Pulm recommendations. Not safe for trach placement at time given high requirement PEEP and FIO2 Result Diagram: 11/05/18 0503 11/05/18 0503 Results 24hrs Laboratory Tests Test 11/04/18 17:56 11/04/18 20:33 11/05/18 00:59 11/05/18 05:03 Bedside Glucose 157 162 207 White Blood Count 10.9 H Red Blood Count 5.39 Hemoglobin 14.3 Hematocrit 47.6 Mean Corpuscular 88.3 Volume Mean Corpuscular 26.5 L Hemoglobin Mean Corpuscular 30.0 L Hemoglobin Concen t Red Cell 18.3 H Distribution Width Platelet Count 373 Mean Platelet 12.7 H Volume Immature 0.500 H Granulocytes % Neutrophils % 73.8 Lymphocytes % 17.0 Monocytes % 8.4 Eosinophils % 0.2 Basophils % 0.1 Nucleated Red 0.0 Blood Cells % Immature 0.060 H Granulocytes # Neutrophils # 8.0 H Lymphocytes # 1.9 Monocytes # 0.9 Eosinophils # 0.0 Basophils # 0.0 Nucleated Red 0.0 Blood Cells # Sodium Level 141 Potassium Level 3.9 Chloride Level 92 L Carbon Dioxide 38 H Level Anion Gap 11 Blood Urea 25 H Nitrogen Creatinine 0.42 L Est Glomerular > 60 Filtrat Rate mL/min Glucose Level 233 H Calcium Level 9.0 Triglycerides 167 H Level Test 11/05/18 05:29 11/05/18 08:35 11/05/18 09:30 11/05/18 13:27 Bedside Glucose 265 H 186 170 Blood Gas Blood arterial Specimen Source Arterial Blood 11/05/2018 10:02: Date Drawn 57 AM Arterial Blood pH 7.360 (Temp corrected) Arterial Blood 81.0 *H pCO2 (Temp correct) Arterial Blood 66.1 L pO2 (Temp corrected) Arterial Blood 44.7 *H HCO3 Arterial Blood 14.9 H Base Excess Arterial Blood 91.0 L Oxygen Saturation Danilo Test ACCEPTAB Arterial Blood Left Radial Gas Puncture Site Arterial 0.7 Blood Carboxyhemo globin Arterial Blood 0.2 Methemoglobin Blood Gas A-a O2 199.3 H Differential Oxyhemoglobin 90.2 L Percent Blood Gas 37.0 Temperature Blood Gas 16.0 Respiration Rate Blood Gas Actual 20 Respiration Rate Blood Gas VENT - SIMV Modality FiO2 50.0 Blood Gas Low 10.0 PEEP Setting Blood Gas 15 Pressure Support Blood Gas MRYAN RN Critical Value Read Back Blood Gas TM Notified Whom Blood Gas 11/05/2018 10:21: Notified Time 15 AM Subjective 24 Hr Interval Summary Subjective hx not possible: pt non-verbal Exam/Review of Systems Exam Vitals Vital Signs Date Temp Pulse Resp B/P (MAP) Pulse Ox O2 O2 Flow FiO2 Time Delivery Rate 11/05/18 61 18 99 50 15:41 11/05/18 105/69 Mechanical 14:00 (81) Ventilator 11/05/18 97.9 12:00 Intake and Output 11/04/18 11/04/18 11/05/18 1515:00 23:00 07:00 IntakeIntake Total 966 ml 933.729 ml 1114.185 ml OutputOutput Total 900 ml 2050 ml 550 ml BalanceBalance 66 ml -1116.271 ml 564.185 ml Constitutional: non-verbal Respiratory: clear to auscultation Cardiovascular: regular rate and rhythm Gastrointestinal: soft; No distended Musculoskeletal: nl extremities to inspection Results Results 24hrs Laboratory Tests Test 11/04/18 17:56 11/04/18 20:33 11/05/18 00:59 11/05/18 05:03 Bedside Glucose 157 162 207 White Blood Count 10.9 H Red Blood Count 5.39 Hemoglobin 14.3 Hematocrit 47.6 Mean Corpuscular 88.3 Volume Mean Corpuscular 26.5 L Hemoglobin Mean Corpuscular 30.0 L Hemoglobin Concen t Red Cell 18.3 H Distribution Width Platelet Count 373 Mean Platelet 12.7 H Volume Immature 0.500 H Granulocytes % Neutrophils % 73.8 Lymphocytes % 17.0 Monocytes % 8.4 Eosinophils % 0.2 Basophils % 0.1 Nucleated Red 0.0 Blood Cells % Immature 0.060 H Granulocytes # Neutrophils # 8.0 H Lymphocytes # 1.9 Monocytes # 0.9 Eosinophils # 0.0 Basophils # 0.0 Nucleated Red 0.0 Blood Cells # Sodium Level 141 Potassium Level 3.9 Chloride Level 92 L Carbon Dioxide 38 H Level Anion Gap 11 Blood Urea 25 H Nitrogen Creatinine 0.42 L Est Glomerular > 60 Filtrat Rate mL/min Glucose Level 233 H Calcium Level 9.0 Triglycerides 167 H Level Test 11/05/18 05:29 11/05/18 08:35 11/05/18 09:30 11/05/18 13:27 Bedside Glucose 265 H 186 170 Blood Gas Blood arterial Specimen Source Arterial Blood 11/05/2018 10:02: Date Drawn 57 AM Arterial Blood pH 7.360 (Temp corrected) Arterial Blood 81.0 *H pCO2 (Temp correct) Arterial Blood 66.1 L pO2 (Temp corrected) Arterial Blood 44.7 *H HCO3 Arterial Blood 14.9 H Base Excess Arterial Blood 91.0 L Oxygen Saturation Danilo Test ACCEPTAB Arterial Blood Left Radial Gas Puncture Site Arterial 0.7 Blood Carboxyhemo globin Arterial Blood 0.2 Methemoglobin Blood Gas A-a O2 199.3 H Differential Oxyhemoglobin 90.2 L Percent Blood Gas 37.0 Temperature Blood Gas 16.0 Respiration Rate Blood Gas Actual 20 Respiration Rate Blood Gas VENT - SIMV Modality FiO2 50.0 Blood Gas Low 10.0 PEEP Setting Blood Gas 15 Pressure Support Blood Gas MRYAN RN Critical Value Read Back Blood Gas TM Notified Whom Blood Gas 11/05/2018 10:21: Notified Time 15 AM Medications Medication Current Medications IV Flush (NS 3 ml) 3 ml PER PROTOCOL IV ; Start 10/17/18 at 15:30 Hydromorphone HCl (Dilaudid) 0.5 mg Q4H PRN IV SEVERE PAIN LEVEL 7-10 Last administered on 11/01/18at 01:27; Admin Dose 0.5 MG; Start 10/17/18 at 15:30 Furosemide (Lasix) 40 mg BID DIURETICS IV Last administered on 11/05/18at 05:30; Admin Dose 40 MG; Start 10/19/18 at 10:30 Nystatin (Nystatin Powder) 1 applic BID TOP Last administered on 11/05/18 08:38; Admin Dose 1 APPLIC; Start 10/19/18 at 21:00 Enoxaparin Sodium (Lovenox) 60 mg DAILY SC Last administered on 11/05/18 08:38; Admin Dose 60 MG; Start 10/21/18 at 09:00 Ipratropium [place] (Atrovent Hfa) 4 puff Q6H RESP THERAPY INH Last administered on 11/05/18 14:11; Admin Dose 4 PUFF; Start 10/20/18 at 20:00 Albuterol (Ventolin Hfa) 4 puff Q6H RESP THERAPY INH Last administered on 11/05/18 14:11; Admin Dose 4 PUFF; Start 10/20/18 at 20:00 Diagnostic Test (Pha) (Accu-Chek) 1 ea 02 XX Last administered on 11/05/18at 01:03; Admin Dose 1 EA; Start 10/21/18 at 02:00 Miscellaneous Information 1 ea NOTE XX ; Start 10/20/18 at 16:30 Glucose (Glutose) 15 gm Q15M PRN PO DECREASED GLUCOSE; Start 10/20/18 at 16:30 Glucose (Glutose) 22.5 gm Q15M PRN PO DECREASED GLUCOSE; Start 10/20/18 at 16:30 Dextrose (D50w Syringe) 25 ml Q15M PRN IV DECREASED GLUCOSE; Start 10/20/18 at 16:30 Dextrose (D50w Syringe) 50 ml Q15M PRN IV DECREASED GLUCOSE; Start 10/20/18 at 16:30 Glucagon (Glucagen) 1 mg Q15M PRN IM DECREASED GLUCOSE; Start 10/20/18 at 16:30 Glucose (Glutose) 15 gm Q15M PRN BUCCAL DECREASED GLUCOSE; Start 10/20/18 at 16:30 IV Flush (NS 10 ml) 10 ml PRN PRN IV IV PROTOCOL; Start 10/20/18 at 16:30 Midazolam HCl 50 ml @ 1 mls/hr TITRATE IV Last administered on 11/05/18at 13:28; Admin Dose 8 MLS/HR; Start 10/22/18 at 02:30 Fentanyl 1000 mcg/ Sodium Chloride 100 ml @ 2.5 mls/hr TITRATE IV Last administered on 11/05/18 14:04; Admin Dose 10 MLS/HR; Start 10/22/18 at 11:30 Docusate Sodium (Colace Liquid Cup) 100 mg BID GTB Last administered on 11/05/18 08:36; Admin Dose 100 MG; Start 10/22/18 at 21:00 Acetaminophen (Tylenol Tab) 650 mg Q6H PRN PO MILD PAIN(1-3)OR ELEVATED TEMP Last administered on 10/25/18 06:33; Admin Dose 650 MG; Start 10/23/18 at 20:30 Methylprednisolone Sodium Succinate (Solu-Medrol) 40 mg Q6 IV Last administered on 11/05/18 13:29; Admin Dose 40 MG; Start 10/27/18 at 12:00 Insulin Aspart (Novolog Insulin Pen) NOVOLOG *MODERATE* ALGORI... Q4 SC Last administered on 11/05/18 13:46; Admin Dose 2 UNIT; Start 10/27/18 at 21:00 Lisinopril (Zestril) 20 mg DAILY NGT Last administered on 11/05/18 08:36; Admin Dose 20 MG; Start 10/30/18 at 10:00 Famotidine (Pepcid) 20 mg Q12 GTB Last administered on 11/05/18 08:36; Admin Dose 20 MG; Start 10/31/18 at 21:00 Bisacodyl (Dulcolax Supp) 10 mg Q24H PRN [place] CONSTIPATION Last administered on 11/02/18 09:28; Admin Dose 10 MG; Start 10/31/18 at 11:30 Sodium Biphosphate/ Sodium Phosphate (Fleet Enema) 133 ml Q24H PRN [place] CONSTIPATION Last administered on 11/02/18 09:28; Admin Dose 133 ML; Start 10/31/18 at 11:30 Lorazepam (Ativan) 2 mg Q4H PRN GTB ANXIETY Last administered on 11/02/18 20:26; Admin Dose 2 MG; Start 10/31/18 at 12:00 Propofol 100 ml @ 7.909 mls/ hr Q12H IV Last administered on 1/30/19at 16:05; Admin Dose 55.364 MLS/HR; Start 11/01/18 at 09:00 Acetylcysteine (Mucomyst) 3 ml Q6H RESP THERAPY PRN NEB WHEEZING AND RESP DISTRESS Last administered on 11/02/18at 02:43; Admin Dose 3 ML; Start 11/01/18 at 23:00 Hydralazine HCl (Apresoline) 10 mg Q4H PRN IV ELEVATED SYSTOLIC BP Last administered on 11/04/18at 04:22; Admin Dose 10 MG; Start 11/02/18 at 00:30 Acetylcysteine (Mucomyst) 1 ml Q6H RESP THERAPY NEB Last administered on 11/05/18at 14:11; Admin Dose 1 ML; Start 11/02/18 at 08:00 Dexmedetomidine HCl 200 mcg/ Sodium Chloride 50 ml @ 13.18 mls/ hr TITRATE IV ; Start 11/02/18 at 10:00 Insulin Glargine (Lantus) 35 units BID@0800,2000 SC ; Start 11/05/18 at 20:00 Lactulose (Enulose) 30 gm Q6 PO ; Start 11/05/18 at 18:[address] E[place] Nov 05, 2018 16:08
--- NOTE | 2018-11-05 20:48 | CONS ---
DATE OF ADMISSION: 10/17/2018 DATE OF CONSULTATION: REASON FOR CONSULTATION: Evaluation for possible tracheostomy. HISTORY OF PRESENT ILLNESS: This is a 52-year-old male with a history of hypertension, hyperlipidemi a, COPD, obesity, congestive heart failure, admitted and had to be intubated, currently unable to com e off the ventilator secondary to multiple medical problems including obesity, COPD, multiple comorbi dities. PAST MEDICAL HISTORY: Significant for hypertension, hyperlipidemia, obesity, COPD, respiratory failu re, sepsis, diabetes. PAST SURGICAL HISTORY: None. ALLERGIES: NONE. SOCIAL HISTORY: No smoking, drinking or drug use. MEDICATIONS: List reviewed. REVIEW OF SYSTEMS: Unable to be obtained. The patient is intubated. PHYSICAL EXAMINATION: VITAL SIGNS: Blood pressure is 143/90, pulse is 60, respirations 18. HEENT: Normocephalic, atraumatic. PERRLA. GENERAL: The patient was morbidly obese. CARDIOVASCULAR: Regular rate and rhythm. LUNGS: Clear. ABDOMEN: Soft. EXTREMITIES: Warm. LABORATORY VALUES: Significant for a hemoglobin of 14.3, white count 10.9, platelet count 373, cristina l coagulation factors. IMPRESSION: Respiratory failure, unable to come off the ventilator. RECOMMENDATIONS: We will proceed with a tracheostomy. Discussed with the nursing staff. We will di scuss with the referring physicians. Dictated By: KARINA VALADEZ MD FM/NTS Conf#: [id number] DID#: [id number] CC: LUCIE ELIZABETH MD;*EndCC*
[2018-11-06] VITALS (57 sets, daily range): BP systolic 91–163; BP diastolic 53–106; PULSE 53–90; RESP 16–25
[2018-11-06] MEDS: MIDAZOLAM (DRIP) 50 mg/50 mL 50 ML IV SCH ×3 (00:16→19:15)
[2018-11-06] MEDS: PROPOFOL 100 ML IV SCH ×10 (00:18→21:52)
[2018-11-06] MEDS: METHYLPREDNISOLONE 40 MG INJ IV SCH ×4 (00:20→18:05)
[2018-11-06] MEDS: LACTULOSE 30ML CUP PO SCH ×4 (00:22→18:07)
[2018-11-06] MEDS: ALBUTEROL HFA 8 GM INHALER INH SCH ×4 (01:23→20:13)
[2018-11-06] MEDS: IPRATROPIUM (HFA) 12.9 GM INHALER INH SCH ×4 (01:23→20:13)
[2018-11-06] MEDS: ACETYLCYSTEINE 20% 4 ML VIAL NEB SCH ×4 (01:24→20:16)
[2018-11-06] MEDS: INSULIN ASPART [NOVOLOG] 3 ML PEN SC SCH ×6 (01:50→21:21)
[2018-11-06] MEDS: FENTAnyl 1,000 MCG in SOD CHLORIDE 0.9% 80 ML IV SCH ×2 (01:54→15:05)
[2018-11-06] MEDS: ACCU-CHEK XX SCH (02:00)
[2018-11-06] MEDS: DEXTROSE 5%-0.45% NACL 1,000 ML IV SCH ×2 (05:39→18:07)
[2018-11-06] MEDS: FUROSEMIDE 40 MG INJ IV SCH (05:39)
--- NOTE | 2018-11-06 08:18 | CONS ---
Assessment/Plan Assessment/Plan Assessment/Plan (Daily) Ventilator setting; SIMV of 16, pressure support 15, tidal volume 400, PEEP of 10, 40% FiO2. Patient is currently on Versed 6 mg/h, propofol 30 mics per kilogram per minute. Assessment recommendations; 1. Patient admitted for CHF and pneumonia with significant improvement in oxygenation. 2. Likely underlying chronic type II respiratory failure due to obesity/hypoventilation syndrome. 3. History of diabetes and hypertension. 4. Possible underlying COPD as well. Continue current supportive care. Patient scheduled for tracheostomy placement today. Hold further Lasix. Prognosis is guarded. Consultation Date/Type/Reason Admit Date/Time Oct 17, 2018 at 14:17 Initial Consult Date 10/18/18 Type of Consult Pulmonary/critical care Patient is a 52-year-old male who was brought into the hospital because of shortness of breath. Patient was in respiratory failure and required intubation. ABG was done which showed severe hypercapnia. By the time I saw the patient, patient is orally intubated and sedated. History was obtained from medical record as well as from patient's sister who was present in the room. Past medical history; 1. Chronic renal insufficiency. 2. Morbid obesity. Likely underlying sleep apnea syndrome. 3. Diabetes. 4. Hypertension. Medications; reviewed. Patient is currently on insulin drip at 7 units/h, propofol 20 mics per kilogram per minute. Other medications were reviewed as well. Allergies; none. Social history; positive for alcohol abuse and smoking. Family history; he is single, has 3 children. Patient is with his sisters who take care of him. Occupational history; patient is on medical leave. Review of system; unable to be obtained. General exam; middle-aged male, morbidly obese, orally intubated, sedated, currently in no distress. Date/Time of Note DATE: 11/06/18 TIME: 08:16 24 HR Interval Summary Free Text/Dictation Patient's condition is critical but stable. Patient scheduled for tracheostomy placement today. Has remained hemodynamically stable. General exam; middle-aged male, morbidly obese, orally intubated and sedated. Currently in no distress. Exam/Review of Systems Exam Vitals Vital Signs Date Temp Pulse Resp B/P (MAP) Pulse Ox O2 O2 Flow FiO2 Time Delivery Rate 11/06/18 61 18 116/72 98 06:30 (87) 11/06/18 Mechanical 06:00 Ventilator 11/06/18 40 05:15 11/06/18 98.5 04:00 Intake and Output 11/05/18 11/05/18 11/06/18 1515:00 23:00 07:00 IntakeIntake Total 596.363 ml 1082.8 ml 464.11 ml OutputOutput Total 1225 ml 1140 ml 535 ml BalanceBalance -628.637 ml -57.2 ml -70.89 ml Exam HEENT exam; supple neck, orally intubated. Patient has fair dentition. No neck masses. JVD difficult to see because of short neck. Pupils are small bilat erally. Chest exam; diminished breath sounds bilaterally. S1-S2 audible, no murmurs. Regular rhythm. Abdomen exam; soft, nondistended. Bowel sounds audible. Organomegaly difficult to assess. Extremity exam; no peripheral edema. Patient does have chronic lower extremity skin changes. [employer] exam; patient is sedated. Results Result Diagram: 11/06/18 0400 11/06/18 0400 Results 24hrs Laboratory Tests Test 11/05/18 08:35 11/05/18 09:30 11/05/18 13:27 11/05/18 18:13 Bedside Glucose 186 170 131 Blood Gas Blood arterial Specimen Source Arterial Blood 11/05/2018 10:02: Date Drawn 57 AM Arterial Blood pH 7.360 (Temp corrected) Arterial Blood 81.0 *H pCO2 (Temp correct) Arterial Blood 66.1 L pO2 (Temp corrected) Arterial Blood 44.7 *H HCO3 Arterial Blood 14.9 H Base Excess Arterial Blood 91.0 L Oxygen Saturation Danilo Test ACCEPTAB Arterial Blood Left Radial Gas Puncture Site Arterial 0.7 Blood Carboxyhemo globin Arterial Blood 0.2 Methemoglobin Blood Gas A-a O2 199.3 H Differential Oxyhemoglobin 90.2 L Percent Blood Gas 37.0 Temperature Blood Gas 16.0 Respiration Rate Blood Gas Actual 20 Respiration Rate Blood Gas VENT - SIMV Modality FiO2 50.0 Blood Gas Low 10.0 PEEP Setting Blood Gas 15 Pressure Support Blood Gas ASHISH CAMEJO Critical Value Read Back Blood Gas TM Notified Whom Blood Gas 11/05/2018 10:21: Notified Time 15 AM Test 11/05/18 20:23 11/05/18 20:56 11/06/18 01:48 11/06/18 02:42 Bedside Glucose 150 142 186 178 Test 11/06/18 04:00 11/06/18 05:37 White Blood Count 12.6 H Red Blood Count 5.53 Hemoglobin 14.6 Hematocrit 49.3 Mean Corpuscular 89.2 Volume Mean Corpuscular 26.4 L Hemoglobin Mean Corpuscular 29.6 L Hemoglobin Concen t Red Cell 18.1 H Distribution Width Platelet Count 367 Mean Platelet 12.3 H Volume Immature 0.600 H Granulocytes % Neutrophils % 81.4 H Lymphocytes % 12.0 L Monocytes % 5.7 Eosinophils % 0.1 Basophils % 0.2 Nucleated Red 0.0 Blood Cells % Immature 0.080 H Granulocytes # Neutrophils # 10.2 H Lymphocytes # 1.5 Monocytes # 0.7 Eosinophils # 0.0 Basophils # 0.0 Nucleated Red 0.0 Blood Cells # Prothrombin Time 12.8 Prothrombin Time 1.0 Ratio INR International 0.95 Normalized Ratio Activated 27.5 Partial Thrombopl ast Time Sodium Level 139 Potassium Level 3.9 Chloride Level 90 L Carbon Dioxide 43 *H Level Anion Gap 6 Blood Urea 23 H Nitrogen Creatinine 0.43 L Est Glomerular > 60 Filtrat Rate mL/min Glucose Level 199 Calcium Level 8.9 Bedside Glucose 169 Medications Medication Current Medications IV Flush (NS 3 ml) 3 ml PER PROTOCOL IV ; Start 10/17/18 at 15:30 Hydromorphone HCl (Dilaudid) 0.5 mg Q4H PRN IV SEVERE PAIN LEVEL 7-10 Last administered on 11/01/18at 01:27; Admin Dose 0.5 MG; Start 10/17/18 at 15:30 Furosemide (Lasix) 40 mg BID DIURETICS IV Last administered on 11/06/18at 05:39; Admin Dose 40 MG; Start 10/19/18 at 10:30; Status Hold Nystatin (Nystatin Powder) 1 applic BID TOP Last administered on 11/05/18at 20:54; Admin Dose 1 APPLIC; Start 10/19/18 at 21:00 Enoxaparin Sodium (Lovenox) 60 mg DAILY SC Last administered on 11/05/18at 08:38; Admin Dose 60 MG; Start 10/21/18 at 09:00 Ipratropium [place] (Atrovent Hfa) 4 puff Q6H RESP THERAPY INH Last administered on 11/06/18 08:14; Admin Dose 4 PUFF; Start 10/20/18 at 20:00 Albuterol (Ventolin Hfa) 4 puff Q6H RESP THERAPY INH Last administered on 11/06/18at 08:14; Admin Dose 4 PUFF; Start 10/20/18 at 20:00 Diagnostic Test (Pha) (Accu-Chek) 1 ea 02 XX Last administered on 11/05/18at 01:03; Admin Dose 1 EA; Start 10/21/18 at 02:00 Miscellaneous Information 1 ea NOTE XX ; Start 10/20/18 at 16:30 Glucose (Glutose) 15 gm Q15M PRN PO DECREASED GLUCOSE; Start 10/20/18 at 16:30 Glucose (Glutose) 22.5 gm Q15M PRN PO DECREASED GLUCOSE; Start 10/20/18 at 16:30 Dextrose (D50w Syringe) 25 ml Q15M PRN IV DECREASED GLUCOSE; Start 10/20/18 at 16:30 Dextrose (D50w Syringe) 50 ml Q15M PRN IV DECREASED GLUCOSE; Start 10/20/18 at 16:30 Glucagon (Glucagen) 1 mg Q15M PRN IM DECREASED GLUCOSE; Start 10/20/18 at 16:30 Glucose (Glutose) 15 gm Q15M PRN BUCCAL DECREASED GLUCOSE; Start 10/20/18 at 16:30 IV Flush (NS 10 ml) 10 ml PRN PRN IV IV PROTOCOL; Start 10/20/18 at 16:30 Midazolam HCl 50 ml @ 1 mls/hr TITRATE IV Last administered on 11/06/18at 00:16; Admin Dose 6 MLS/HR; Start 10/22/18 at 02:30 Fentanyl 1000 mcg/ Sodium Chloride 100 ml @ 2.5 mls/hr TITRATE IV Last administered on 11/06/18at 01:54; Admin Dose 8 MLS/HR; Start 10/22/18 at 11:30 Docusate Sodium (Colace Liquid Cup) 100 mg BID GTB Last administered on 11/05/18at 20:53; Admin Dose 100 MG; Start 10/22/18 at 21:00 Acetaminophen (Tylenol Tab) 650 mg Q6H PRN PO MILD PAIN(1-3)OR ELEVATED TEMP Last administered on 10/25/18 06:33; Admin Dose 650 MG; Start 10/23/18 at 20:30 Methylprednisolone Sodium Succinate (Solu-Medrol) 40 mg Q6 IV Last administered on 11/06/18 05:38; Admin Dose 40 MG; Start 10/27/18 at 12:00 Insulin Aspart (Novolog Insulin Pen) NOVOLOG *MODERATE* ALGORI... Q4 SC Last administered on 11/06/18 05:41; Admin Dose 2 UNIT; Start 10/27/18 at 21:00 Lisinopril (Zestril) 20 mg DAILY NGT Last administered on 11/05/18 08:36; Admin Dose 20 MG; Start 10/30/18 at 10:00 Famotidine (Pepcid) 20 mg Q12 GTB Last administered on 11/05/18 20:54; Admin Dose 20 MG; Start 10/31/18 at 21:00 Bisacodyl (Dulcolax Supp) 10 mg Q24H PRN [place] CONSTIPATION Last administered on 11/02/18 09:28; Admin Dose 10 MG; Start 10/31/18 at 11:30 Sodium Biphosphate/ Sodium Phosphate (Fleet Enema) 133 ml Q24H PRN [place] CONSTIPATION Last administered on 11/02/18 09:28; Admin Dose 133 ML; Start at 11:30 Lorazepam (Ativan) 2 mg Q4H PRN GTB ANXIETY Last administered on 11/02/18 20:26; Admin Dose 2 MG; Start 10/31/18 at 12:00 Propofol 100 ml @ 7.909 mls/ hr Q12H IV Last administered on 11/06/18 04:32; Admin Dose 39.546 MLS/HR; Start 11/01/18 at 09:00 Acetylcysteine (Mucomyst) 3 ml Q6H RESP THERAPY PRN NEB WHEEZING AND RESP DISTRESS Last administered on 11/02/18 02:43; Admin Dose 3 ML; Start 11/01/18 at 23:00 Hydralazine HCl (Apresoline) 10 mg Q4H PRN IV ELEVATED SYSTOLIC BP Last administered on 11/04/18 04:22; Admin Dose 10 MG; Start 11/02/18 at 00:30 Acetylcysteine (Mucomyst) 1 ml Q6H RESP THERAPY NEB Last administered on 11/06/18at 08:15; Admin Dose 1 ML; Start 11/02/18 at 08:00 Dexmedetomidine HCl 200 mcg/ Sodium Chloride 50 ml @ 13.18 mls/ hr TITRATE IV ; Start 11/02/18 at 10:00 Insulin Glargine (Lantus) 35 units BID@0800,2000 SC Last administered on 11/05/18at 20:25; Admin Dose 35 UNITS; Start 11/05/18 at 20:00 Lactulose (Enulose) 30 gm Q6 PO Last administered on 11/06/18at 05:38; Admin Dose 30 GM; Start 11/05/18 at 18:00 Dextrose/Sodium Chloride 1,000 ml @ 75 mls/hr [id number] IV Last administered on 11/06/18at 05:39; Admin Dose 75 MLS/HR; Start 11/06/18 at 05:00 ETTA BRANTLEY Nov 06, 2018 08:18
[2018-11-06] MEDS: DOCUSATE SODIUM 10 MG/ML (10ML CUP) GTB SCH ×2 (08:33→21:13)
[2018-11-06] MEDS: FAMOTIDINE 20 MG TAB GTB SCH ×2 (08:34→21:13)
[2018-11-06] MEDS: LISINOPRIL 20 MG TAB NGT SCH (08:34)
[2018-11-06] MEDS: INSULIN GLARGINE [LANTus] (100 UNITS/ML) SYG SC SCH ×2 (08:36→20:19)
[2018-11-06] MEDS: ENOXAPARIN 60 MG/0.6 ML SYG SC SCH (08:37)
[2018-11-06] MEDS: NYSTATIN 30 GM POWDER BTL TOP SCH ×2 (08:43→21:14)
--- NOTE | 2018-11-06 11:19 | PN ---
Date/Time of Note Date/Time of Note DATE: 11/06/18 TIME: 11:18 Assessment/Plan Lines/Catheters IV Catheter Type (from Nrsg): PICC Line [place] in Place (from Nrsg): Yes Assessment/Plan Assessment/Plan Respiratory failure patient with multiple comorbidities unable to come off the ventilator secondary to comorbidities Plan for tracheostomy Considering patient's size will need extra large tracheostomy tube available in case it is needed We will proceed with tracheostomy when extra-large tube is available Subjective 24 Hr Interval Summary Constitutional: improved Pain Control: mild Exam/Review of Systems Vital Signs Vitals Vital Signs Date Temp Pulse Resp B/P (MAP) Pulse Ox O2 O2 Flow FiO2 Time Delivery Rate 11/06/18 58 23 110/63 95 Mechanical 10:00 (79) Ventilator 11/06/18 98.7 08:00 11/06/18 40 05:15 Intake and Output 11/05/18 11/05/18 11/06/18 1515:00 23:00 07:00 IntakeIntake Total 596.363 ml 1082.8 ml 600.565 ml OutputOutput Total 1225 ml 1140 ml 535 ml BalanceBalance -628.637 ml -57.2 ml 65.565 ml Exam Eyes: nl conjunctiva, EOMI, nl lids, nl sclera ENMT: nl external ears & nose, nl lips & teeth, nl nasal mucosa & septum, mucosa pink and moist Neck: supple, non-tender Respiratory: clear to auscultation, normal air movement Cardiovascular: regular rate and rhythm, nl pulses Gastrointestinal: soft, nl liver, spleen, non-tender Musculoskeletal: nl extremities to inspection, nl gait and stance Results Result Diagram: 11/06/1839911/06/18399 KARINA VALADEZ MD Nov 06, 2018 11:19
--- NOTE | 2018-11-06 14:05 | PN ---
Date/Time of Note Date/Time of Note DATE: 11/06/18 TIME: 13:58 Assessment/Plan VTE Prophylaxis Risk score (from Ns)>0 risk: 11 Pharmacological prophylaxis: LMWH Assessment/Plan Hospital Course 1. Bradycardia - most likely sedation induced. Will wean propofol and transition to Precedex if needed. Will continue versed and fentanyl as BP/HR tolerate 2. Acute hypercapnic and hypoxemic respiratory failure secondary to diastolic CHF and/or pneumonia with underlying OHS and hypercapnia - Continue weaning PEEP and O2 -Status post cefepime and Lasix -Trach planned for today 3. Sepsis with fevers and tachycardia likely secondary to pneumonia-resolved -Status post cefepime - Single blood culture is positive for coag negative staph but is likely a contaminant 4. Severe morbid obesity - Lifestyle changes -Patient has lost a significant amount of weight during this hospital stay 5. Diabetes - Adjusted Lantus for better control Prophylaxis: Lovenox Disposition -Trach planned for today Result Diagram: 11/06/18 0400 11/06/18 0400 Results 24hrs Laboratory Tests Test 11/05/18 18:13 11/05/18 20:23 11/05/18 20:56 11/06/18 01:48 Bedside Glucose 131 150 142 186 Test 11/06/18 02:42 11/06/18 04:00 11/06/18 05:37 11/06/18 08:33 Bedside Glucose 178 169 182 White Blood Count 12.6 H Red Blood Count 5.53 Hemoglobin 14.6 Hematocrit 49.3 Mean Corpuscular 89.2 Volume Mean Corpuscular 26.4 L Hemoglobin Mean Corpuscular 29.6 L Hemoglobin Concent Red Cell 18.1 H Distribution Width Platelet Count 367 Mean Platelet Volume 12.3 H Immature 0.600 H Granulocytes % Neutrophils % 81.4 H Lymphocytes % 12.0 L Monocytes % 5.7 Eosinophils % 0.1 Basophils % 0.2 Nucleated Red Blood 0.0 Cells % Immature 0.080 H Granulocytes # Neutrophils # 10.2 H Lymphocytes # 1.5 Monocytes # 0.7 Eosinophils # 0.0 Basophils # 0.0 Nucleated Red Blood 0.0 Cells # Prothrombin Time 12.8 Prothrombin Time 1.0 Ratio INR International 0.95 Normalized Ratio Activated 27.5 Partial Thromboplast Time Sodium Level 139 Potassium Level 3.9 Chloride Level 90 L Carbon Dioxide Level 43 *H Anion Gap 6 Blood Urea Nitrogen 23 H Creatinine 0.43 L Est Glomerular > 60 Filtrat Rate mL/min Glucose Level 199 Calcium Level 8.9 Test 11/06/18 13:19 Bedside Glucose 179 Subjective 24 Hr Interval Summary Subjective hx not possible: pt non-verbal Exam/Review of Systems Exam Vitals Vital Signs Date Temp Pulse Resp B/P (MAP) Pulse Ox O2 O2 Flow FiO2 Time Delivery Rate 11/06/18 57 12:00 11/06/18 21 97 40 11:30 11/06/18 110/63 Mechanical 10:00 (79) Ventilator 11/06/18 98.7 08:00 Intake and Output 11/05/18 11/05/18 11/06/18 1515:00 23:00 07:00 IntakeIntake Total 596.363 ml 1082.8 ml 600.565 ml OutputOutput Total 1225 ml 1140 ml 535 ml BalanceBalance -628.637 ml -57.2 ml 65.565 ml Constitutional: non-verbal Respiratory: clear to auscultation Cardiovascular: regular rate and rhythm Gastrointestinal: soft; No distended Musculoskeletal: nl extremities to inspection Results Results 24hrs Laboratory Tests Test 11/05/18 18:13 11/05/18 20:23 11/05/18 20:56 11/06/18 01:48 Bedside Glucose 131 150 142 186 Test 11/06/18 02:42 11/06/18 04:00 11/06/18 05:37 11/06/18 08:33 Bedside Glucose 178 169 182 White Blood Count 12.6 H Red Blood Count 5.53 Hemoglobin 14.6 Hematocrit 49.3 Mean Corpuscular 89.2 Volume Mean Corpuscular 26.4 L Hemoglobin Mean Corpuscular 29.6 L Hemoglobin Concent Red Cell 18.1 H Distribution Width Platelet Count 367 Mean Platelet Volume 12.3 H Immature 0.600 H Granulocytes % Neutrophils % 81.4 H Lymphocytes % 12.0 L Monocytes % 5.7 Eosinophils % 0.1 Basophils % 0.2 Nucleated Red Blood 0.0 Cells % Immature 0.080 H Granulocytes # Neutrophils # 10.2 H Lymphocytes # 1.5 Monocytes # 0.7 Eosinophils # 0.0 Basophils # 0.0 Nucleated Red Blood 0.0 Cells # Prothrombin Time 12.8 Prothrombin Time 1.0 Ratio INR International 0.95 Normalized Ratio Activated 27.5 Partial Thromboplast Time Sodium Level 139 Potassium Level 3.9 Chloride Level 90 L Carbon Dioxide Level 43 *H Anion Gap 6 Blood Urea Nitrogen 23 H Creatinine 0.43 L Est Glomerular > 60 Filtrat Rate mL/min Glucose Level 199 Calcium Level 8.9 Test 11/06/18 13:19 Bedside Glucose 179 Medications Medication Current Medications IV Flush (NS 3 ml) 3 ml PER PROTOCOL IV ; Start 10/17/18 at 15:30 Hydromorphone HCl (Dilaudid) 0.5 mg Q4H PRN IV SEVERE PAIN LEVEL 7-10 Last administered on 11/01/18 01:27; Admin Dose 0.5 MG; Start 10/17/18 at 15:30 Furosemide (Lasix) 40 mg BID DIURETICS IV Last administered on 11/06/18at 05:39; Admin Dose 40 MG; Start 10/19/18 at 10:30; Status Hold Nystatin (Nystatin Powder) 1 applic BID TOP Last administered on 11/06/18at 08:43; Admin Dose 1 APPLIC; Start 10/19/18 at 21:00 Enoxaparin Sodium (Lovenox) 60 mg DAILY SC Last administered on 11/06/18at 08:37 ; Admin Dose 60 MG; Start 10/21/18 at 09:00 Ipratropium [place] (Atrovent Hfa) 4 puff Q6H RESP THERAPY INH Last administered on 11/06/18 08:14; Admin Dose 4 PUFF; Start 10/20/18 at 20:00 Albuterol (Ventolin Hfa) 4 puff Q6H RESP THERAPY INH Last administered on 11/06/18 08:14; Admin Dose 4 PUFF; Start 10/20/18 at 20:00 Diagnostic Test (Pha) (Accu-Chek) 1 ea 02 XX Last administered on 11/05/18at 01:03; Admin Dose 1 EA; Start 10/21/18 at 02:00 Miscellaneous Information 1 ea NOTE XX ; Start 10/20/18 at 16:30 Glucose (Glutose) 15 gm Q15M PRN PO DECREASED GLUCOSE; Start 10/20/18 at 16:30 Glucose (Glutose) 22.5 gm Q15M PRN PO DECREASED GLUCOSE; Start 10/20/18 at 16:30 Dextrose (D50w Syringe) 25 ml Q15M PRN IV DECREASED GLUCOSE; Start 10/20/18 at 16:30 Dextrose (D50w Syringe) 50 ml Q15M PRN IV DECREASED GLUCOSE; Start 10/20/18 at 16:30 Glucagon (Glucagen) 1 mg Q15M PRN IM DECREASED GLUCOSE; Start 10/20/18 at 16:30 Glucose (Glutose) 15 gm Q15M PRN BUCCAL DECREASED GLUCOSE; Start 10/20/18 at 16:30 IV Flush (NS 10 ml) 10 ml PRN PRN IV IV PROTOCOL; Start 10/20/18 at 16:30 Midazolam HCl 50 ml @ 1 mls/hr TITRATE IV Last administered on 11/06/18at 10:10; Admin Dose 6 MLS/HR; Start 10/22/18 at 02:30 Fentanyl 1000 mcg/ Sodium Chloride 100 ml @ 2.5 mls/hr TITRATE IV Last administered on 11/06/18at 01:54; Admin Dose 8 MLS/HR; Start 10/22/18 at 11:30 Docusate Sodium (Colace Liquid Cup) 100 mg BID GTB Last administered on 11/06/18at 08:33; Admin Dose 100 MG; Start 10/22/18 at 21:00 Acetaminophen (Tylenol Tab) 650 mg Q6H PRN PO MILD PAIN(1-3)OR ELEVATED TEMP Last administered on 10/25/18at 06:33; Admin Dose 650 MG; Start 10/23/18 at 20:30 Methylprednisolone Sodium Succinate (Solu-Medrol) 40 mg Q6 IV Last administered on 11/06/18at 13:12; Admin Dose 40 MG; Start 10/27/18 at 12:00 Insulin Aspart (Novolog Insulin Pen) NOVOLOG *MODERATE* ALGORI... Q4 SC Last administered on 11/06/18 13:20; Admin Dose 2 UNIT; Start 10/27/18 at 21:00 Lisinopril (Zestril) 20 mg DAILY NGT Last administered on 11/06/18 08:34; Admin Dose 20 MG; Start 10/30/18 at 10:00 Famotidine (Pepcid) 20 mg Q12 GTB Last administered on 11/06/18 08:34; Admin Dose 20 MG; Start 10/31/18 at 21:00 Bisacodyl (Dulcolax Supp) 10 mg Q24H PRN [place] CONSTIPATION Last administered on 11/02/18 09:28; Admin Dose 10 MG; Start 10/31/18 at 11:30 Sodium Biphosphate/ Sodium Phosphate (Fleet Enema) 133 ml Q24H PRN [place] NSTIPATION Last administered on 11/02/18 09:28; Admin Dose 133 ML; Start 10/31/18 at 11:30 Lorazepam (Ativan) 2 mg Q4H PRN GTB ANXIETY Last administered on 11/02/18 20:26; Admin Dose 2 MG; Start 10/31/18 at 12:00 Propofol 100 ml @ 7.909 mls/ hr Q12H IV Last administered on 11/06/18 13:12; Admin Dose 39.546 MLS/HR; Start 11/01/18 at 09:00 Acetylcysteine (Mucomyst) 3 ml Q6H RESP THERAPY PRN NEB WHEEZING AND RESP DISTRESS Last administered on 11/02/18 02:43; Admin Dose 3 ML; Start 11/01/18 at 23:00 Hydralazine HCl (Apresoline) 10 mg Q4H PRN IV ELEVATED SYSTOLIC BP Last administered on 11/04/18 04:22; Admin Dose 10 MG; Start 11/02/18 at 00:30 Acetylcysteine (Mucomyst) 1 ml Q6H RESP THERAPY NEB Last administered on 11/06/18 08:15; Admin Dose 1 ML; Start 11/02/18 at 08:00 Dexmedetomidine HCl 200 mcg/ Sodium Chloride 50 ml @ 13.18 mls/ hr TITRATE IV ; Start 11/02/18 at 10:00 Insulin Glargine (Lantus) 35 units BID@0800,2000 SC Last administered on 11/06/18 08:36; Admin Dose 35 UNITS; Start 11/05/18 at 20:00 Lactulose (Enulose) 30 gm Q6 PO Last administered on 11/06/18 13:15; Admin Dose 30 GM; Start 11/05/18 at 18:00 Dextrose/Sodium Chloride 1,000 ml @ 75 mls/hr [id number] IV Last administered on 11/06/18 05:39; Admin Dose 75 MLS/HR; Start 11/06/18 at 05:[address] ESTR[place] 31, 2019 14:05
[2018-11-07] VITALS (55 sets, daily range): BP systolic 94–158; BP diastolic 54–113; PULSE 55–100; RESP 3–25
[2018-11-07] MEDS: PROPOFOL 100 ML IV SCH ×7 (00:07→21:02)
[2018-11-07] MEDS: METHYLPREDNISOLONE 40 MG INJ IV SCH ×4 (00:07→17:31)
[2018-11-07] MEDS: LACTULOSE 30ML CUP PO SCH ×4 (00:08→17:31)
[2018-11-07] MEDS: INSULIN ASPART [NOVOLOG] 3 ML PEN SC SCH ×6 (01:21→20:59)
[2018-11-07] MEDS: IPRATROPIUM (HFA) 12.9 GM INHALER INH SCH ×4 (01:30→20:43)
[2018-11-07] MEDS: ACETYLCYSTEINE 20% 4 ML VIAL NEB SCH ×4 (01:30→20:43)
[2018-11-07] MEDS: ALBUTEROL HFA 8 GM INHALER INH SCH ×4 (01:30→20:43)
[2018-11-07] MEDS: MIDAZOLAM (DRIP) 50 mg/50 mL 50 ML IV SCH ×3 (01:41→17:37)
[2018-11-07] MEDS: ACCU-CHEK XX SCH (02:00)
[2018-11-07] MEDS: FENTAnyl 1,000 MCG in SOD CHLORIDE 0.9% 80 ML IV SCH ×2 (04:34→21:31)
[2018-11-07] MEDS: DEXTROSE 5%-0.45% NACL 1,000 ML IV SCH ×2 (05:32→19:41)
--- NOTE | 2018-11-07 08:14 | CONS ---
Assessment/Plan Assessment/Plan Assessment/Plan (Daily) Ventilator settings; SIMV of 16, pressure support 15, tidal volume 400, PEEP of 10, 40% FiO2. Patient is currently on propofol at 25 mics per kilogram per minute. Assessment recommendations; 1. Patient admitted respiratory failure due to severe CHF as well as underlying sleep apnea with chronic type II respiratory failure. There has been marked overall improvement in clinical status. With marked reduction in FiO2 requirement. 2. History of diabetes and hypertension. 3. Status post treatment for presumed pneumonia. Hold sedation. Patient to be given another weaning trial before scheduled for tracheostomy possibly avert it possible. Once on CPAP mode ABG will be performed. 35 minutes of critical care time was spent evaluating the patient. Consultation Date/Type/Reason Admit Date/Time Oct 17, 2018 at 14:17 Initial Consult Date 10/18/18 Type of Consult Pulmonary/critical care Patient is a 52-year-old male who was brought into the hospital because of shortness of breath. Patient was in respiratory failure and required intubation. ABG was done which showed severe hypercapnia. By the time I saw the patient, patient is orally intubated and sedated. History was obtained from medical record as well as from patient's sister who was present in the room. Past medical history; 1. Chronic renal insufficiency. 2. Morbid obesity. Likely underlying sleep apnea syndrome. 3. Diabetes. 4. Hypertension. Medications; reviewed. Patient is currently on insulin drip at 7 units/h, propofol 20 mics per kilogram per minute. Other medications were reviewed as well. Allergies; none. Social history; positive for alcohol abuse and smoking. Family history; he is single, has 3 children. Patient is with his sisters who take care of him. Occupational history; patient is on medical leave. Review of system; unable to be obtained. General exam; middle-aged male, morbidly obese, orally intubated, sedated, currently in no distress. Date/Time of Note DATE: 11/07/18 TIME: 08:11 24 HR Interval Summary Free Text/Dictation Patient condition is critical. Scheduled for tracheostomy today. General exam; middle-aged male, morbidly obese, orally intubated, sedated, currently no distress. Exam/Review of Systems Exam Vitals Vital Signs Date Temp Pulse Resp B/P (MAP) Pulse Ox O2 O2 Flow FiO2 Time Delivery Rate 11/07/18 98.7 77 21 150/98 90 Mechanical 08:00 (115) Ventilator 11/07/18 40 04:30 Intake and Output 11/06/18 11/06/18 11/07/18 1515:00 23:00 07:00 IntakeIntake Total 1137.913 ml 1437.520 ml 887.8 ml OutputOutput Total 1220 ml 670 ml 405 ml BalanceBalance -82.087 ml 767.520 ml 482.8 ml Exam HEENT exam; supple neck, JVD difficult to see because of short neck. No thyromegaly. Patient has fair dentition. No neck masses. Orally intubated. Pupils are midsize and reactive to light. Chest exam; diminished breath sounds throughout. S1-S2 audible, no murmurs. Regular rhythm. Abdomen exam; soft, protuberant. Bowel sounds audible. Extremity exam; peripheral edema. Patient does have chronic lower extremity skin changes. [employer] exam; patient is sedated. Results Result Diagram: 11/07/18 0500 11/07/18 0500 Results 24hrs Laboratory Tests Test 11/06/18 08:33 11/06/18 13:19 11/06/18 17:18 11/06/18 20:14 Bedside Glucose 182 179 176 190 Test 11/06/18 21:15 11/07/18 01:17 11/07/18 02:47 11/07/18 05:00 Bedside Glucose 205 216 198 White Blood Count 12.1 H Red Blood Count 5.22 Hemoglobin 14.0 Hematocrit 46.3 Mean Corpuscular 88.7 Volume Mean Corpuscular 26.8 L Hemoglobin Mean Corpuscular 30.2 L Hemoglobin Concent Red Cell 17.9 H Distribution Width Platelet Count 372 Mean Platelet Volume 11.9 H Immature 0.700 H Granulocytes % Neutrophils % 77.2 H Lymphocytes % 13.3 L Monocytes % 8.4 Eosinophils % 0.2 Basophils % 0.2 Nucleated Red Blood 0.0 Cells % Immature 0.080 H Granulocytes # Neutrophils # 9.3 H Lymphocytes # 1.6 Monocytes # 1.0 H Eosinophils # 0.0 Basophils # 0.0 Nucleated Red Blood 0.0 Cells # Sodium Level 138 Potassium Level 3.9 Chloride Level 94 L Carbon Dioxide Level 41 *H Anion Gap 3 L Blood Urea Nitrogen 18 Creatinine 0.42 L Est Glomerular > 60 Filtrat Rate mL/min Glucose Level 205 Calcium Level 8.6 Test 11/07/18 05:34 Bedside Glucose 181 Medications Medication Current Medications IV Flush (NS 3 ml) 3 ml PER PROTOCOL IV ; Start 10/17/18 at 15:30 Hydromorphone HCl (Dilaudid) 0.5 mg Q4H PRN IV SEVERE PAIN LEVEL 7-10 Last ad ministered on 11/01/18at 01:27; Admin Dose 0.5 MG; Start 10/17/18 at 15:30 Furosemide (Lasix) 40 mg BID DIURETICS IV Last administered on 11/06/18at 05:39; Admin Dose 40 MG; Start 10/19/18 at 10:30; Status Hold Nystatin (Nystatin Powder) 1 applic BID TOP Last administered on 11/06/18at 21:14; Admin Dose 1 APPLIC; Start 10/19/18 at 21:00 Enoxaparin Sodium (Lovenox) 60 mg DAILY SC Last administered on 11/06/18at 08:37; Admin Dose 60 MG; Start 10/21/18 at 09:00 Ipratropium [place] (Atrovent Hfa) 4 puff Q6H RESP THERAPY INH Last administered on 11/07/18 01:30; Admin Dose 4 PUFF; Start 10/20/18 at 20:00 Albuterol (Ventolin Hfa) 4 puff Q6H RESP THERAPY INH Last administered on 11/07/18 01:30; Admin Dose 4 PUFF; Start 10/20/18 at 20:00 Diagnostic Test (Pha) (Accu-Chek) 1 ea 02 XX Last administered on 11/05/18at 01:03; Admin Dose 1 EA; Start 10/21/18 at 02:00 Miscellaneous Information 1 ea NOTE XX ; Start 10/20/18 at 16:30 Glucose (Glutose) 15 gm Q15M PRN PO DECREASED GLUCOSE; Start 10/20/18 at 16:30 Glucose (Glutose) 22.5 gm Q15M PRN PO DECREASED GLUCOSE; Start 10/20/18 at 16:30 Dextrose (D50w Syringe) 25 ml Q15M PRN IV DECREASED GLUCOSE; Start 10/20/18 at 16:30 Dextrose (D50w Syringe) 50 ml Q15M PRN IV DECREASED GLUCOSE; Start 10/20/18 at 16:30 Glucagon (Glucagen) 1 mg Q15M PRN IM DECREASED GLUCOSE; Start 10/20/18 at 16:30 Glucose (Glutose) 15 gm Q15M PRN BUCCAL DECREASED GLUCOSE; Start 10/20/18 at 16:30 IV Flush (NS 10 ml) 10 ml PRN PRN IV IV PROTOCOL; Start 10/20/18 at 16:30 Midazolam HCl 50 ml @ 1 mls/hr TITRATE IV Last administered on 11/07/18at 01:41; Admin Dose 10 MLS/HR; Start 10/22/18 at 02:30 Fentanyl 1000 mcg/ Sodium Chloride 100 ml @ 2.5 mls/hr TITRATE IV Last administered on 11/07/18 04:34; Admin Dose 8 MLS/HR; Start 10/22/18 at 11:30 Docusate Sodium (Colace Liquid Cup) 100 mg BID GTB Last administered on 11/06/18at 21:13; Admin Dose 100 MG; Start 10/22/18 at 21:00 Acetaminophen (Tylenol Tab) 650 mg Q6H PRN PO MILD PAIN(1-3)OR ELEVATED TEMP Last administered on 10/25/18at 06:33; Admin Dose 650 MG; Start 10/23/18 at 20:30 Methylprednisolone Sodium Succinate (Solu-Medrol) 40 mg Q6 IV Last administered on 11/07/18 05:33; Admin Dose 40 MG; Start 10/27/18 at 12:00 Insulin Aspart (Novolog Insulin Pen) NOVOLOG *MODERATE* [place]I... Q4 SC Last administered on 11/07/18at 05:49; Admin Dose 4 UNIT; Start 10/27/18 at 21:00 Lisinopril (Zestril) 20 mg DAILY NGT Last administered on 11/06/18at 08:34; Admin Dose 20 MG; Start 10/30/18 at 10:00 Famotidine (Pepcid) 20 mg Q12 GTB Last administered on 11/06/18at 21:13; Admin Dose 20 MG; Start 10/31/18 at 21:00 Bisacodyl (Dulcolax Supp) 10 mg Q24H PRN [place] CONSTIPATION Last administered on 11/02/18at 09:28; Admin Dose 10 MG; Start 10/31/18 at 11:30 Sodium Biphosphate/ Sodium Phosphate (Fleet Enema) 133 ml Q24H PRN [place] CONSTIPATION Last administered on 11/02/18 09:28; Admin Dose 133 ML; Start 10/31/18 at 11:30 Lorazepam (Ativan) 2 mg Q4H PRN GTB ANXIETY Last administered on 11/02/18 20:26; Admin Dose 2 MG; Start 10/31/18 at 12:00 Propofol 100 ml @ 7.909 mls/ hr Q12H IV Last administered on 11/07/18 05:23; Admin Dose 31.637 MLS/HR; Start 11/01/18 at 09:00 Acetylcysteine (Mucomyst) 3 ml Q6H RESP THERAPY PRN NEB WHEEZING AND RESP DISTRESS Last administered on 11/02/18 02:43; Admin Dose 3 ML; Start 11/01/18 at 23:00 Hydralazine HCl (Apresoline) 10 mg Q4H PRN IV ELEVATED SYSTOLIC BP Last admi nistered on 11/04/18 04:22; Admin Dose 10 MG; Start 11/02/18 at 00:30 Acetylcysteine (Mucomyst) 1 ml Q6H RESP THERAPY NEB Last administered on 11/07/18 01:30; Admin Dose 1 ML; Start 11/02/18 at 08:00 Dexmedetomidine HCl 200 mcg/ Sodium Chloride 50 ml @ 13.18 mls/ hr TITRATE IV ; Start 11/02/18 at 10:00 Insulin Glargine (Lantus) 35 units BID@0800,2000 SC Last administered on 11/06/18 20:19; Admin Dose 35 UNITS; Start 11/05/18 at 20:00 Lactulose (Enulose) 30 gm Q6 PO Last administered on 11/07/18 05:32; Admin Dose 30 GM; Start 11/05/18 at 18:00 Dextrose/Sodium Chloride 1,000 ml @ 75 mls/hr [id number] IV Last administered on 11/07/18 05:32; Admin Dose 75 MLS/HR; Start 11/06/18 at 05:00 ETTA BRANTLEY Nov 07, 2018 08:14
[2018-11-07] MEDS: DOCUSATE SODIUM 10 MG/ML (10ML CUP) GTB SCH ×2 (08:49→20:57)
[2018-11-07] MEDS: FAMOTIDINE 20 MG TAB GTB SCH ×2 (08:49→20:57)
[2018-11-07] MEDS: ENOXAPARIN 60 MG/0.6 ML SYG SC SCH (08:49)
[2018-11-07] MEDS: LISINOPRIL 20 MG TAB NGT SCH (08:49)
[2018-11-07] MEDS: NYSTATIN 30 GM POWDER BTL TOP SCH ×2 (08:50→21:01)
[2018-11-07] MEDS: INSULIN GLARGINE [LANTus] (100 UNITS/ML) SYG SC SCH ×2 (08:51→21:01)
--- NOTE | 2018-11-07 16:45 | PN ---
Date/Time of Note Date/Time of Note DATE: 11/07/18 TIME: 16:44 Assessment/Plan VTE Prophylaxis Risk score (from Nsg)>0 risk: 12 Pharmacological prophylaxis: LMWH Assessment/Plan Hospital Course 1. Bradycardia - most likely sedation induced. Will wean propofol and transition to Precedex if needed. Will continue versed and fentanyl as BP/HR tolerate 2. Acute hypercapnic and hypoxemic respiratory failure secondary to diastolic CHF and/or pneumonia with underlying OHS and hypercapnia - Continue weaning PEEP and O2 -Status post cefepime and Lasix -Trach planned for next week 3. Sepsis with fevers and tachycardia likely secondary to pneumonia-resolved -Status post cefepime - Single blood culture is positive for coag negative staph but is likely a contaminant 4. Severe morbid obesity - Lifestyle changes -Patient has lost a significant amount of weight during this hospital stay 5. Diabetes - Adjusted Lantus for better control Prophylaxis: Lovenox Disposition -Trach planned for next week Result Diagram: 11/07/18 0500 11/07/18 0500 Results 24hrs Laboratory Tests Test 11/06/18 17:18 11/06/18 20:14 11/06/18 21:15 11/07/18 01:17 Bedside Glucose 176 190 205 216 Test 11/07/18 02:47 11/07/18 05:00 11/07/18 05:34 11/07/18 08:48 Bedside Glucose 198 181 169 White Blood Count 12.1 H Red Blood Count 5.22 Hemoglobin 14.0 Hematocrit 46.3 Mean Corpuscular 88.7 Volume Mean Corpuscular 26.8 L Hemoglobin Mean Corpuscular 30.2 L Hemoglobin Concen t Red Cell 17.9 H Distribution Width Platelet Count 372 Mean Platelet 11.9 H Volume Immature 0.700 H Granulocytes % Neutrophils % 77.2 H Lymphocytes % 13.3 L Monocytes % 8.4 Eosinophils % 0.2 Basophils % 0.2 Nucleated Red 0.0 Blood Cells % Immature 0.080 H Granulocytes # Neutrophils # 9.3 H Lymphocytes # 1.6 Monocytes # 1.0 H Eosinophils # 0.0 Basophils # 0.0 Nucleated Red 0.0 Blood Cells # Sodium Level 138 Potassium Level 3.9 Chloride Level 94 L Carbon Dioxide 41 *H Level Anion Gap 3 L Blood Urea 18 Nitrogen Creatinine 0.42 L Est Glomerular > 60 Filtrat Rate mL/min Glucose Level 205 Calcium Level 8.6 Test 11/07/18 09:00 11/07/18 12:35 Blood Gas Blood arterial Specimen Source Arterial Blood 11/07/2018 8:26:44 Date Drawn AM Arterial Blood pH 7.459 H (Temp corrected) Arterial Blood 59.2 H pCO2 (Temp correct) Arterial Blood 54.8 *L pO2 (Temp corrected) Arterial Blood 41.1 *H HCO3 Arterial Blood 14.0 H Base Excess Arterial Blood 88.8 L Oxygen Saturation Danilo Test ACCEPTAB Arterial Blood Left Radial Gas Puncture Site Arterial 1.6 Blood Carboxyhemo globin Arterial Blood 0.1 Methemoglobin Blood Gas A-a O2 125.9 H Differential Oxyhemoglobin 87.3 L Percent Blood Gas 37.0 Temperature Blood Gas Actual 22 Respiration Rate Blood Gas VENT - PSV Modality FiO2 35.0 Blood Gas Low 5.0 PEEP Setting Blood Gas 12 Pressure Support Blood Gas ANDREW CAMEJO Critical Value Read Back Blood Gas TM Notified Whom Blood Gas 11/07/2018 8:41:32 Notified Time AM Bedside Glucose 149 Subjective 24 Hr Interval Summary Subjective hx not possible: pt non-verbal Exam/Review of Systems Exam Vitals Vital Signs Date Temp Pulse Resp B/P (MAP) Pulse Ox O2 O2 Flow FiO2 Time Delivery Rate 11/07/18 70 17 122/70 92 13:30 (87) 11/07/18 Mechanical 13:00 Ventilator 11/07/18 99.3 12:00 11/07/18 35 11:40 Intake and Output 11/06/18 11/06/18 11/07/18 1515:00 23:00 07:00 IntakeIntake Total 1137.913 ml 1437.520 ml 887.8 ml OutputOutput Total 1220 ml 670 ml 405 ml BalanceBalance -82.087 ml 767.520 ml 482.8 ml Constitutional: non-verbal Respiratory: clear to auscultation Cardiovascular: regular rate and rhythm Gastrointestinal: soft; No distended Musculoskeletal: nl extremities to inspection Results Results 24hrs Laboratory Tests Test 11/06/18 17:18 11/06/18 20:14 11/06/18 21:15 11/07/18 01:17 Bedside Glucose 176 190 205 216 Test 11/07/18 02:47 11/07/18 05:00 11/07/18 05:34 11/07/18 08:48 Bedside Glucose 198 181 169 White Blood Count 12.1 H Red Blood Count 5.22 Hemoglobin 14.0 Hematocrit 46.3 Mean Corpuscular 88.7 Volume Mean Corpuscular 26.8 L Hemoglobin Mean Corpuscular 30.2 L Hemoglobin Concen t Red Cell 17.9 H Distribution Width Platelet Count 372 Mean Platelet 11.9 H Volume Immature 0.700 H Granulocytes % Neutrophils % 77.2 H Lymphocytes % 13.3 L Monocytes % 8.4 Eosinophils % 0.2 Basophils % 0.2 Nucleated Red 0.0 Blood Cells % Immature 0.080 H Granulocytes # Neutrophils # 9.3 H Lymphocytes # 1.6 Monocytes # 1.0 H Eosinophils # 0.0 Basophils # 0.0 Nucleated Red 0.0 Blood Cells # Sodium Level 138 Potassium Level 3.9 Chloride Level 94 L Carbon Dioxide 41 *H Level Anion Gap 3 L Blood Urea 18 Nitrogen Creatinine 0.42 L Est Glomerular > 60 Filtrat Rate mL/min Glucose Level 205 Calcium Level 8.6 Test 11/07/18 09:00 11/07/18 12:35 Blood Gas Blood arterial Specimen Source Arterial Blood 11/07/2018 8:26:44 Date Drawn AM Arterial Blood pH 7.459 H (Temp corrected) Arterial Blood 59.2 H pCO2 (Temp correct) Arterial Blood 54.8 *L pO2 (Temp corrected) Arterial Blood 41.1 *H HCO3 Arterial Blood 14.0 H Base Excess Arterial Blood 88.8 L Oxygen Saturation Danilo Test ACCEPTAB Arterial Blood Left Radial Gas Puncture Site Arterial 1.6 Blood Carboxyhemo globin Arterial Blood 0.1 Methemoglobin Blood Gas A-a O2 125.9 H Differential Oxyhemoglobin 87.3 L Percent Blood Gas 37.0 Temperature Blood Gas Actual 22 Respiration Rate Blood Gas VENT - PSV Modality FiO2 35.0 Blood Gas Low 5.0 PEEP Setting Blood Gas 12 Pressure Support Blood Gas ANDREW CAMEJO Critical Value Read Back Blood Gas TM Notified Whom Blood Gas 11/07/2018 8:41:32 Notified Time AM Bedside Glucose 149 Medications Medication Current Medications IV Flush (NS 3 ml) 3 ml PER PROTOCOL IV ; Start 10/17/18 at 15:30 Hydromorphone HCl (Dilaudid) 0.5 mg Q4H PRN IV SEVERE PAIN LEVEL 7-10 Last administered on 11/01/18at 01:27; Admin Dose 0.5 MG; Start 10/17/18 at 15:30 Furosemide (Lasix) 40 mg BID DIURETICS IV Last administered on 11/06/18at 05: 39; Admin Dose 40 MG; Start 10/19/18 at 10:30; Status Hold Nystatin (Nystatin Powder) 1 applic BID TOP Last administered on 11/07/18at 08:50; Admin Dose 1 APPLIC; Start 10/19/18 at 21:00 Enoxaparin Sodium (Lovenox) 60 mg DAILY SC Last administered on 11/06/18at 08:37; Admin Dose 60 MG; Start 10/21/18 at 09:00 Ipratropium [place] (Atrovent Hfa) 4 puff Q6H RESP THERAPY INH Last administered on 11/07/18at 14:23; Admin Dose 4 PUFF; Start 10/20/18 at 20:00 Albuterol (Ventolin Hfa) 4 puff Q6H RESP THERAPY INH Last administered on 11/07/18at 14:23; Admin Dose 4 PUFF; Start 10/20/18 at 20:00 Diagnostic Test (Pha) (Accu-Chek) 1 ea 02 XX Last administered on 11/05/18at 01:03; Admin Dose 1 EA; Start 10/21/18 at 02:00 Miscellaneous Information 1 ea NOTE XX ; Start 10/20/18 at 16:30 Glucose (Glutose) 15 gm Q15M PRN PO DECREASED GLUCOSE; Start 10/20/18 at 16:30 Glucose (Glutose) 22.5 gm Q15M PRN PO DECREASED GLUCOSE; Start 10/20/18 at 16:30 Dextrose (D50w Syringe) 25 ml Q15M PRN IV DECREASED GLUCOSE; Start 10/20/18 at 16:30 Dextrose (D50w Syringe) 50 ml Q15M PRN IV DECREASED GLUCOSE; Start 10/20/18 at 16:30 Glucagon (Glucagen) 1 mg Q15M PRN IM DECREASED GLUCOSE; Start 10/20/18 at 16:30 Glucose (Glutose) 15 gm Q15M PRN BUCCAL DECREASED GLUCOSE; Start 10/20/18 at 16:30 IV Flush (NS 10 ml) 10 ml PRN PRN IV IV PROTOCOL; Start 10/20/18 at 16:30 Midazolam HCl 50 ml @ 1 mls/hr TITRATE IV Last administered on 11/07/18 10:07; Admin Dose 8 MLS/HR; Start 10/22/18 at 02:30 Fentanyl 1000 mcg/ Sodium Chloride 100 ml @ 2.5 mls/hr TITRATE IV Last administered on 11/07/18 04:34; Admin Dose 8 MLS/HR; Start 10/22/18 at 11:30 Docusate Sodium (Colace Liquid Cup) 100 mg BID GTB Last administered on 11/07/18 08:49; Admin Dose 100 MG; Start 10/22/18 at 21:00 Acetaminophen (Tylenol Tab) 650 mg Q6H PRN PO MILD PAIN(1-3)OR ELEVATED TEMP Last administered on 10/25/18 06:33; Admin Dose 650 MG; Start 10/23/18 at 20:30 Methylprednisolone Sodium Succinate (Solu-Medrol) 40 mg Q6 IV Last administered on 11/07/18 12:30; Admin Dose 40 MG; Start 10/27/18 at 12:00 Insulin Aspart (Novolog Insulin Pen) NOVOLOG *MODERATE* ALGORI... Q4 SC Last administered on 11/07/18 12:37; Admin Dose 2 UNIT; Start 10/27/18 at 21:00 Lisinopril (Zestril) 20 mg DAILY NGT Last administered on 11/07/18 08:49; Admin Dose 20 MG; Start 10/30/18 at 10:00 Famotidine (Pepcid) 20 mg Q12 GTB Last administered on 11/07/18 08:49; Admin Dose 20 MG; Start 10/31/18 at 21:00 Bisacodyl (Dulcolax Supp) 10 mg Q24H PRN SD CONSTIPATION Last administered on 11/02/18 09:28; Admin Dose 10 MG; Start 10/31/18 at 11:30 Sodium Biphosphate/ Sodium Phosphate (Fleet Enema) 133 ml Q24H PRN SD CONSTIPATION Last administered on 11/02/18 09:28; Admin Dose 133 ML; Start 10/31/18 at 11:30 Lorazepam (Ativan) 2 mg Q4H PRN GTB ANXIETY Last administered on 11/02/18 20:26; Admin Dose 2 MG; Start 10/31/18 at 12:00 Propofol 100 ml @ 7.909 mls/ hr Q12H IV Last administered on 11/07/18 12:31; Admin Dose 31.637 MLS/HR; Start 11/01/18 at 09:00 Acetylcysteine (Mucomyst) 3 ml Q6H RESP THERAPY PRN NEB WHEEZING AND RESP DISTRESS Last administered on 11/02/18 02:43; Admin Dose 3 ML; Start 11/01/18 at 23:00 Hydralazine HCl (Apresoline) 10 mg Q4H PRN IV ELEVATED SYSTOLIC BP Last administered on 11/04/18 04:22; Admin Dose 10 MG; Start 11/02/18 at 00:30 Acetylcysteine (Mucomyst) 1 ml Q6H RESP THERAPY NEB Last administered on 11/07/18 14:26; Admin Dose 1 ML; Start 11/02/18 at 08:00 Dexmedetomidine HCl 200 mcg/ Sodium Chloride 50 ml @ 13.18 mls/ hr TITRATE IV ; Start 11/02/18 at 10:00 Insulin Glargine (Lantus) 35 units BID@0800,2000 SC Last administered on 11/07/18 08:51; Admin Dose 35 UNITS; Start 11/05/18 at 20:00 Lactulose (Enulose) 30 gm Q6 PO Last administered on 11/07/18 12:31; Admin Dose 30 GM; Start 11/05/18 at 18:00 Dextrose/Sodium Chloride 1,000 ml @ 75 mls/hr [id number] IV Last administered on 11/07/18 05:32; Admin Dose 75 MLS/HR; Start 11/06/18 at 05:[address] E[place] Nov 07, 2018 16:45
--- NOTE | 2018-11-07 19:22 | PN ---
Date/Time of Note Date/Time of Note DATE: 11/07/18 TIME: :19 Assessment/Plan Assessment/Plan Assessment/Plan Respiratory failure Patient will need tracheostomy Considering his size he would benefit from a long extra long tracheostomy tube Patient refused surgery today we will proceed with tracheostomy when the patient is agreeable Subjective 24 Hr Interval Summary Constitutional: improved Pain Control: mild Exam/Review of Systems Vital Signs Vitals Vital Signs Date Temp Pulse Resp B/P (MAP) Pulse Ox O2 O2 Flow FiO2 Time Delivery Rate 11/07/18 59 18 110/65 94 18:30 (80) 11/07/18 Mechanical 18:00 Ventilator 11/07/18 35 17:40 11/07/18 98.7 16:00 Intake and Output 11/06/18 11/06/18 11/07/18 1515:00 23:00 07:00 IntakeIntake Total 1137.913 ml 1437.520 ml 887.8 ml OutputOutput Total 1220 ml 670 ml 470 ml BalanceBalance -82.087 ml 767.520 ml 417.8 ml Exam Eyes: nl conjunctiva, EOMI, nl lids, nl sclera ENMT: nl external ears & nose, nl lips & teeth, nl nasal mucosa & septum, muc tc pink and moist Neck: supple, non-tender Respiratory: clear to auscultation, normal air movement Gastrointestinal: soft, nl liver, spleen, non-tender Musculoskeletal: nl extremities to inspection, nl gait and stance Results Result Diagram: 11/07/18 0500 11/07/18 0500 KARINA VALADEZ MD Nov 07, 2018 19:22
[2018-11-08] VITALS (55 sets, daily range): BP systolic 76–179; BP diastolic 43–136; PULSE 55–118; RESP 9–33
[2018-11-08] MEDS: LACTULOSE 30ML CUP PO SCH ×5 (00:06→23:47)
[2018-11-08] MEDS: METHYLPREDNISOLONE 40 MG INJ IV SCH ×5 (00:06→23:46)
[2018-11-08] MEDS: PROPOFOL 100 ML IV SCH ×10 (00:08→23:07)
[2018-11-08] MEDS: MIDAZOLAM (DRIP) 50 mg/50 mL 50 ML IV SCH ×4 (00:34→23:41)
[2018-11-08] MEDS: INSULIN ASPART [NOVOLOG] 3 ML PEN SC SCH ×6 (01:14→21:06)
[2018-11-08] MEDS: ALBUTEROL HFA 8 GM INHALER INH SCH ×4 (01:25→19:49)
[2018-11-08] MEDS: IPRATROPIUM (HFA) 12.9 GM INHALER INH SCH ×4 (01:25→19:49)
[2018-11-08] MEDS: ACETYLCYSTEINE 20% 4 ML VIAL NEB SCH ×4 (01:26→19:51)
[2018-11-08] MEDS: ACCU-CHEK XX SCH (02:52)
[2018-11-08] MEDS: hydrALAzine 20 MG INJ IV PRN (03:21)
[2018-11-08] MEDS ORDERED: ALTEPLASE (CATHFLO) 2 MG INJ CATHETER ONE (06:30)
--- NOTE | 2018-11-08 08:38 | CONS ---
Assessment/Plan Assessment/Plan Assessment/Plan (Daily) Ventilator setting; SIMV of 16, tidal volume 400, PEEP of 10, 40% FiO2, pressure support of 15. Patient is currently on Versed 7 mg/h, fentanyl 50 mics per hour, propofol 3 mics per kilogram per minute. Assessment recommendations; 1. Patient admitted with severe hypercapnic and hypoxemic respiratory failure due to underlying severe CHF patient also was massively edematous with significant overall clinical improvement. However patient has failed CPAP trial with persistent hypoxemia and hypercapnia. Was scheduled for tracheostomy yesterday but the family rescinded that. 2. Underlying sleep apnea. 3. Status post treatment for presumed pneumonia. 4. History of diabetes and hypertension. Perform another CPAP trial with pressure support of 12, SIMV rate of 12. ABG will be performed if the patient does well on CPAP mode after holding sedation. Prognosis is guarded. Consultation Date/Type/Reason Admit Date/Time Oct 17, 2018 at 14:17 Initial Consult Date 10/18/18 Type of Consult Pulmonary/critical care Patient is a 52-year-old male who was brought into the hospital because of shortness of breath. Patient was in respiratory failure and required intubation. ABG was done which showed severe hypercapnia. By the time I saw the patient, patient is orally intubated and sedated. History was obtained from medical record as well as from patient's sister who was present in the room. Past medical history; 1. Chronic renal insufficiency. 2. Morbid obesity. Likely underlying sleep apnea syndrome. 3. Diabetes. 4. Hypertension. Medications; reviewed. Patient is currently on insulin drip at 7 units/h, propofol 20 mics per kilogram per minute. Other medications were reviewed as well. Allergies; none. Social history; positive for alcohol abuse and smoking. Family history; he is single, has 3 children. Patient is with his sisters who take care of him. Occupational history; patient is on medical leave. Review of system; unable to be obtained. General exam; middle-aged male, morbidly obese, orally intubated, sedated, currently in no distress. Date/Time of Note DATE: 11/08/18 TIME: 08:35 24 HR Interval Summary Free Text/Dictation Patient's condition is critical. Patient was scheduled for tracheostomy yesterday but apparently the family refused and wanted another CPAP trial. I did have a very lengthy discussion with the patient's 2 sisters yesterday apprised them of the need for tracheostomy as the patient is at very high risk of recurrent respiratory failure based upon his underlying comorbid conditions. The family initially had agreed but later on rescinded tracheostomy placement order. Patient however has remained hemodynamically stable. General exam; middle-aged male, morbidly obese, orally intubated, sedated, currently no distress. Exam/Review of Systems Exam Vitals Vital Signs Date Temp Pulse Resp B/P (MAP) Pulse Ox O2 O2 Flow FiO2 Time Delivery Rate 11/08/18 87 20 148/91 93 Mechanical 06:00 (110) Ventilator 11/08/18 35 04:47 11/08/18 98.8 04:00 Intake and Output 11/07/18 11/07/18 11/08/18 1515:00 23:00 07:00 IntakeIntake Total 965.095 ml 896.277 ml 947.264 ml OutputOutput Total 720 ml 720 ml 910 ml BalanceBalance 245.095 ml 176.277 ml 37.264 ml Exam HEENT exam; supple neck, orally intubated. JVD difficult to see because of short neck. No neck masses. Patient has fair dentition. Chest exam; diminished breath sounds throughout. S1-S2 audible, no murmurs. Regular rhythm. Abdomen exam; soft, protuberant. Bowel sounds audible. Organomegaly difficult to assess. Extremity exam; no peripheral edema. Patient does have chronic lower extremity skin changes. SEROLOGY TECHNICIAN exam; patient is sedated. Results Result Diagram: 11/08/18 0506 11/08/18 0506 Results 24hrs Laboratory Tests Test 11/07/18 08:48 11/07/18 09:00 11/07/18 12:35 11/07/18 17:33 Bedside Glucose 169 149 151 Blood Gas Specimen Blood arterial Source Arterial Blood 11/07/2018 8:26:44 Date Drawn AM Arterial Blood pH 7.459 H (Temp corrected) Arterial Blood 59.2 H pCO2 (Temp correct) Arterial Blood pO2 54.8 *L (Temp corrected) Arterial Blood 41.1 *H HCO3 Arterial Blood 14.0 H Base Excess Arterial Blood 88.8 L Oxygen Saturation Danilo Test ACCEPTAB Arterial Blood Gas Left Radial Puncture Site Arterial 1.6 Blood Carboxyhemog lobin Arterial Blood 0.1 Methemoglobin Blood Gas A-a O2 125.9 H Differential Oxyhemoglobin 87.3 L Percent Blood Gas 37.0 Temperature Blood Gas Actual 22 Respiration Rate Blood Gas Modality VENT - PSV FiO2 35.0 Blood Gas Low PEEP 5.0 Setting Blood Gas Pressure 12 Support Blood Gas Critical ANDREW CAMEJO Value Read Back Blood Gas Notified TM Whom Blood Gas Notified 11/07/2018 8:41:32 Time AM Test 11/07/18 20:32 11/08/18 01:11 11/08/18 02:02 11/08/18 05:05 Bedside Glucose 174 158 166 169 Test 11/08/18 05:06 White Blood Count 13.7 H Red Blood Count 5.46 Hemoglobin 14.5 Hematocrit 47.0 Mean Corpuscular 86.1 Volume Mean Corpuscular 26.6 L Hemoglobin Mean Corpuscular 30.9 L Hemoglobin Concent Red Cell 18.6 H Distribution Width Platelet Count 368 Mean Platelet 11.6 H Volume Immature 1.000 H Granulocytes % Neutrophils % 77.3 H Lymphocytes % 12.5 L Monocytes % 9.0 Eosinophils % 0.1 Basophils % 0.1 Nucleated Red 0.0 Blood Cells % Immature 0.130 H Granulocytes # Neutrophils # 10.6 H Lymphocytes # 1.7 Monocytes # 1.2 H Eosinophils # 0.0 Basophils # 0.0 Nucleated Red 0.0 Blood Cells # Sodium Level 137 Potassium Level 4.0 Chloride Level 94 L Carbon Dioxide 40 H Level Anion Gap 3 L Blood Urea 16 Nitrogen Creatinine 0.38 L Est Glomerular > 60 Filtrat Rate mL/min Glucose Level 194 Calcium Level 9.1 Medications Medication Current Medications IV Flush (NS 3 ml) 3 ml PER PROTOCOL IV ; Start 10/17/18 at 15:30 Hydromorphone HCl (Dilaudid) 0.5 mg Q4H PRN IV SEVERE PAIN LEVEL 7-10 Last administered on 11/01/18at 01:27; Admin Dose 0.5 MG; Start 10/17/18 at 15:30 Furosemide (Lasix) 40 mg BID DIURETICS IV Last administered on 11/06/18at 05:39; Admin Dose 40 MG; Start 10/19/18 at 10:30; Status Hold Nystatin (Nystatin Powder) 1 applic BID TOP Last administered on 11/07/18at 21:01; Admin Dose 1 APPLIC; Start 10/19/18 at 21:00 Enoxaparin Sodium (Lovenox) 60 mg DAILY SC Last administered on 11/06/18at 08:37; Admin Dose 60 MG; Start 10/21/18 at 09:00 Ipratropium [place] (Atrovent Hfa) 4 puff Q6H RESP THERAPY INH Last administered on 11/08/18at 07:36; Admin Dose 4 PUFF; Start 10/20/18 at 20:00 Albuterol (Ventolin Hfa) 4 puff Q6H RESP THERAPY INH Last administered on 11/08/18at 07:36; Admin Dose 4 PUFF; Start 10/20/18 at 20:00 Diagnostic Test (Pha) (Accu-Chek) 1 ea 02 XX Last administered on 11/08/18at 02:52; Admin Dose 1 EA; Start 10/21/18 at 02:00 Miscellaneous Information 1 ea NOTE XX ; Start 10/20/18 at 16:30 Glucose (Glutose) 15 gm Q15M PRN PO DECREASED GLUCOSE; Start 10/20/18 at 16:30 Glucose (Glutose) 22.5 gm Q15M PRN PO DECREASED GLUCOSE; Start 10/20/18 at 16:30 Dextrose (D50w Syringe) 25 ml Q15M PRN IV DECREASED GLUCOSE; Start 10/20/18 at 16:30 Dextrose (D50w Syringe) 50 ml Q15M PRN IV DECREASED GLUCOSE; Start 10/20/18 at 16:30 Glucagon (Glucagen) 1 mg Q15M PRN IM DECREASED GLUCOSE; Start 10/20/18 at 16:30 Glucose (Glutose) 15 gm Q15M PRN BUCCAL DECREASED GLUCOSE; Start 10/20/18 at 16:30 IV Flush (NS 10 ml) 10 ml PRN PRN IV IV PROTOCOL; Start 10/20/18 at 16:30 Midazolam HCl 50 ml @ 1 mls/hr TITRATE IV Last administered on 11/08/18at 00:34; Admin Dose 6 MLS/HR; Start 10/22/18 at 02:30 Fentanyl 1000 mcg/ Sodium Chloride 100 ml @ 2.5 mls/hr TITRATE IV Last administered on 11/07/18at 21:31; Admin Dose 8 MLS/HR; Start 10/22/18 at 11:30 Docusate Sodium (Colace Liquid Cup) 100 mg BID GTB Last administered on 9at 20:57; Admin Dose 100 MG; Start 10/22/18 at 21:00 Acetaminophen (Tylenol Tab) 650 mg Q6H PRN PO MILD PAIN(1-3)OR ELEVATED TEMP Last administered on 10/25/18 06:33; Admin Dose 650 MG; Start 10/23/18 at 20:30 Methylprednisolone Sodium Succinate (Solu-Medrol) 40 mg Q6 IV Last administered on 11/08/18 05:11; Admin Dose 40 MG; Start 10/27/18 at 12:00 Insulin Aspart (Novolog Insulin Pen) NOVOLOG *MODERATE* ALGORI... Q4 SC Last administered on 11/08/18 05:09; Admin Dose 2 UNIT; Start 10/27/18 at 21:00 Lisinopril (Zestril) 20 mg DAILY NGT Last administered on 11/07/18 08:49; Admin Dose 20 MG; Start 10/30/18 at 10:00 Famotidine (Pepcid) 20 mg Q12 GTB Last administered on 11/07/18 20:57; Admin Dose 20 MG; Start 10/31/18 at 21:00 Bisacodyl (Dulcolax Supp) 10 mg Q24H PRN SC CONSTIPATION Last administered on 11/02/18 09:28; Admin Dose 10 MG; Start 10/31/18 at 11:30 Sodium Biphosphate/ Sodium Phosphate (Fleet Enema) 133 ml Q24H PRN SC CONSTIPATION Last administered on 11/02/18 09:28; Admin Dose 133 ML; Start 10/31/18 at 11:30 Lorazepam (Ativan) 2 mg Q4H PRN GTB ANXIETY Last administered on 11/02/18 20:26; Admin Dose 2 MG; Start 10/31/18 at 12:00 Propofol 100 ml @ 7.909 mls/ hr Q12H IV Last administered on 11/08/18 06:11; Admin Dose 39.546 MLS/HR; Start 11/01/18 at 09:00 Acetylcysteine (Mucomyst) 3 ml Q6H RESP THERAPY PRN NEB WHEEZING AND RESP DISTRESS Last administered on 11/02/18 02:43; Admin Dose 3 ML; Start 11/01/18 at 23:00 Hydralazine HCl (Apresoline) 10 mg Q4H PRN IV ELEVATED SYSTOLIC BP Last administered on 11/08/18 03:21; Admin Dose 10 MG; Start 11/02/18 at 00:30 Acetylcysteine (Mucomyst) 1 ml Q6H RESP THERAPY NEB Last administered on 11/08/18 07:37; Admin Dose 1 ML; Start 11/02/18 at 08:00 Dexmedetomidine HCl 200 mcg/ Sodium Chloride 50 ml @ 13.18 mls/ hr TITRATE IV ; Start 11/02/18 at 10:00 Insulin Glargine (Lantus) 35 units BID@0800,2000 SC Last administered on 11/07/18 21:01; Admin Dose 35 UNITS; Start 11/05/18 at 20:00 Lactulose (Enulose) 30 gm Q6 PO Last administered on 11/08/18 05:11; Admin Dose 30 GM; Start 11/05/18 at 18:00 Dextrose/Sodium Chloride 1,000 ml @ 75 mls/hr [id number] IV Last administered on 11/07/18 19:41; Admin Dose 75 MLS/HR; Start 11/06/18 at 05:00 ETTA BRANTLEY Nov 08, 2018 08:38
[2018-11-08] MEDS: INSULIN GLARGINE [LANTus] (100 UNITS/ML) SYG SC SCH ×2 (09:30→20:14)
[2018-11-08] MEDS: ENOXAPARIN 60 MG/0.6 ML SYG SC SCH (09:30)
[2018-11-08] MEDS: NYSTATIN 30 GM POWDER BTL TOP SCH ×2 (09:33→20:57)
[2018-11-08] MEDS: FAMOTIDINE 20 MG TAB GTB SCH ×2 (09:33→20:56)
[2018-11-08] MEDS: DOCUSATE SODIUM 10 MG/ML (10ML CUP) GTB SCH ×2 (09:33→20:56)
[2018-11-08] MEDS: DEXTROSE 5%-0.45% NACL 1,000 ML IV SCH ×2 (09:34→20:41)
[2018-11-08] MEDS: LISINOPRIL 20 MG TAB NGT SCH (09:34)
[2018-11-08] MEDS: FENTAnyl 1,000 MCG in SOD CHLORIDE 0.9% 80 ML IV SCH ×2 (10:15→22:31)
--- NOTE | 2018-11-08 10:40 | PN ---
Date/Time of Note Date/Time of Note DATE: 11/08/18 TIME: 10:39 Assessment/Plan VTE Prophylaxis Risk score (from Nsg)>0 risk: 11 SCD applied (from Nsg): Yes Pharmacological prophylaxis: LMWH Lines/Catheters IV Catheter Type (from Nrsg): Saline Lock Assessment/Plan Hospital Course 1. Bradycardia - most likely sedation induced. Will wean propofol and transition to Precedex if needed. Will continue versed and fentanyl as BP/HR tolerate 2. Acute hypercapnic and hypoxemic respiratory failure secondary to diastolic CHF and/or pneumonia with underlying OHS and hypercapnia - Continue weaning PEEP and O2 -Status post cefepime and Lasix -Trach planned for next week 3. Sepsis with fevers and tachycardia likely secondary to pneumonia-resolved -Status post cefepime - Single blood culture is positive for coag negative staph but is likely a contaminant 4. Severe morbid obesity - Lifestyle changes -Patient has lost a significant amount of weight during this hospital stay 5. Diabetes - Adjusted Lantus for better control Prophylaxis: Lovenox Disposition -Trach planned for next week Result Diagram: 11/08/18 0506 11/08/18 0506 Results 24hrs Laboratory Tests Test 11/07/18 12:35 11/07/18 17:33 11/07/18 20:32 11/08/18 01:11 Bedside Glucose 149 151 174 158 Test 11/08/18 02:02 11/08/18 05:05 11/08/18 05:06 11/08/18 09:23 Bedside Glucose 166 169 160 White Blood Count 13.7 H Red Blood Count 5.46 Hemoglobin 14.5 Hematocrit 47.0 Mean Corpuscular Volume 86.1 Mean Corpuscular 26.6 L Hemoglobin Mean Corpuscular 30.9 L Hemoglobin Concent Red Cell Distribution 18.6 H Width Platelet Count 368 Mean Platelet Volume 11.6 H Immature Granulocytes % 1.000 H Neutrophils % 77.3 H Lymphocytes % 12.5 L Monocytes % 9.0 Eosinophils % 0.1 Basophils % 0.1 Nucleated Red Blood 0.0 Cells % Immature Granulocytes # 0.130 H Neutrophils # 10.6 H Lymphocytes # 1.7 Monocytes # 1.2 H Eosinophils # 0.0 Basophils # 0.0 Nucleated Red Blood 0.0 Cells # Sodium Level 137 Potassium Level 4.0 Chloride Level 94 L Carbon Dioxide Level 40 H Anion Gap 3 L Blood Urea Nitrogen 16 Creatinine 0.38 L Est Glomerular Filtrat > 60 Rate mL/min Glucose Level 194 Calcium Level 9.1 Subjective 24 Hr Interval Summary Subjective hx not possible: pt non-verbal Exam/Review of Systems Exam Vitals Vital Signs Date Temp Pulse Resp B/P (MAP) Pulse Ox O2 O2 Flow FiO2 Time Delivery Rate 11/08/18 88 08:00 11/08/18 20 148/91 93 Mechanical 06:00 (110) Ventilator 11/08/18 35 04:47 11/08/18 98.8 04:00 Intake and Output 11/07/18 11/07/18 11/08/18 1515:00 23:00 07:00 IntakeIntake Total 965.095 ml 896.277 ml 947.264 ml OutputOutput Total 720 ml 720 ml 910 ml BalanceBalance 245.095 ml 176.277 ml 37.264 ml Constitutional: non-verbal ENMT: intubated Respiratory: clear to auscultation Cardiovascular: regular rate and rhythm Gastrointestinal: soft; No distended Musculoskeletal: nl extremities to inspection Results Results 24hrs Laboratory Tests Test 11/07/18 12:35 11/07/18 17:33 11/07/18 20:32 11/08/18 01:11 Bedside Glucose 149 151 174 158 Test 11/08/18 02:02 11/08/18 05:05 11/08/18 05:06 11/08/18 09:23 Bedside Glucose 166 169 160 White Blood Count 13.7 H Red Blood Count 5.46 Hemoglobin 14.5 Hematocrit 47.0 Mean Corpuscular Volume 86.1 Mean Corpuscular 26.6 L Hemoglobin Mean Corpuscular 30.9 L Hemoglobin Concent Red Cell Distribution 18.6 H Width Platelet Count 368 Mean Platelet Volume 11.6 H Immature Granulocytes % 1.000 H Neutrophils % 77.3 H Lymphocytes % 12.5 L Monocytes % 9.0 Eosinophils % 0.1 Basophils % 0.1 Nucleated Red Blood 0.0 Cells % Immature Granulocytes # 0.130 H Neutrophils # 10.6 H Lymphocytes # 1.7 Monocytes # 1.2 H Eosinophils # 0.0 Basophils # 0.0 Nucleated Red Blood 0.0 Cells # Sodium Level 137 Potassium Level 4.0 Chloride Level 94 L Carbon Dioxide Level 40 H Anion Gap 3 L Blood Urea Nitrogen 16 Creatinine 0.38 L Est Glomerular Filtrat > 60 Rate mL/min Glucose Level 194 Calcium Level 9.1 Medications Medication Current Medications IV Flush (NS 3 ml) 3 ml PER PROTOCOL IV ; Start 10/17/18 at 15:30 Hydromorphone HCl (Dilaudid) 0.5 mg Q4H PRN IV SEVERE PAIN LEVEL 7-10 Last a dministered on 11/01/18at 01:27; Admin Dose 0.5 MG; Start 10/17/18 at 15:30 Furosemide (Lasix) 40 mg BID DIURETICS IV Last administered on 11/06/18at 05:39; Admin Dose 40 MG; Start 10/19/18 at 10:30; Status Hold Nystatin (Nystatin Powder) 1 applic BID TOP Last administered on 11/08/18 09:33; Admin Dose 1 APPLIC; Start 10/19/18 at 21:00 Enoxaparin Sodium (Lovenox) 60 mg DAILY SC Last administered on 11/08/18 09:30; Admin Dose 60 MG; Start 10/21/18 at 09:00 Ipratropium [place] (Atrovent Hfa) 4 puff Q6H RESP THERAPY INH Last administered on 11/08/18 07:36; Admin Dose 4 PUFF; Start 10/20/18 at 20:00 Albuterol (Ventolin Hfa) 4 puff Q6H RESP THERAPY INH Last administered on 11/08/18 07:36; Admin Dose 4 PUFF; Start 10/20/18 at 20:00 Diagnostic Test (Pha) (Accu-Chek) 1 ea 02 XX Last administered on 11/08/18at 02:52; Admin Dose 1 EA; Start 10/21/18 at 02:00 Miscellaneous Information 1 ea NOTE XX ; Start 10/20/18 at 16:30 Glucose (Glutose) 15 gm Q15M PRN PO DECREASED GLUCOSE; Start 10/20/18 at 16:30 Glucose (Glutose) 22.5 gm Q15M PRN PO DECREASED GLUCOSE; Start 10/20/18 at 16:30 Dextrose (D50w Syringe) 25 ml Q15M PRN IV DECREASED GLUCOSE; Start 10/20/18 at 16:30 Dextrose (D50w Syringe) 50 ml Q15M PRN IV DECREASED GLUCOSE; Start 10/20/18 at 16:30 Glucagon (Glucagen) 1 mg Q15M PRN IM DECREASED GLUCOSE; Start 10/20/18 at 16:30 Glucose (Glutose) 15 gm Q15M PRN BUCCAL DECREASED GLUCOSE; Start 10/20/18 at 16:30 IV Flush (NS 10 ml) 10 ml PRN PRN IV IV PROTOCOL; Start 10/20/18 at 16:30 Midazolam HCl 50 ml @ 1 mls/hr TITRATE IV Last administered on 11/08/18 10:10; Admin Dose 8 MLS/HR; Start 10/22/18 at 02:30 Fentanyl 1000 mcg/ Sodium Chloride 100 ml @ 2.5 mls/hr TITRATE IV Last administered on 11/08/18 10:15; Admin Dose 8 MLS/HR; Start 10/22/18 at 11:30 Docusate Sodium (Colace Liquid Cup) 100 mg BID GTB Last administered on 11/08/18 09:33; Admin Dose 100 MG; Start 10/22/18 at 21:00 Acetaminophen (Tylenol Tab) 650 mg Q6H PRN PO MILD PAIN(1-3)OR ELEVATED TEMP Last administered on 10/25/18 06:33; Admin Dose 650 MG; Start 10/23/18 at 20:30 Methylprednisolone Sodium Succinate (Solu-Medrol) 40 mg Q6 IV Last administered on 11/08/18 05:11; Admin Dose 40 MG; Start 10/27/18 at 12:00 Insulin Aspart (Novolog Insulin Pen) NOVOLOG *MODERATE* ALGORI... Q4 SC Last administered on 11/08/18 09:32; Admin Dose 2 UNIT; Start 10/27/18 at 21:00 Lisinopril (Zestril) 20 mg DAILY NGT Last administered on 11/08/18 09:34; Admin Dose 20 MG; Start 10/30/18 at 10:00 Famotidine (Pepcid) 20 mg Q12 GTB Last administered on 11/08/18 09:33; Admin Dose 20 MG; Start 10/31/18 at 21:00 Bisacodyl (Dulcolax Supp) 10 mg Q24H PRN [place] CONSTIPATION Last administered on 11/02/18 09:28; Admin Dose 10 MG; Start 10/31/18 at 11:30 Sodium Biphosphate/ Sodium Phosphate (Fleet Enema) 133 ml Q24H PRN [place] CONSTIPATION Last administered on 11/02/18 09:28; Admin Dose 133 ML; Start 10/31/18 at 11:30 Lorazepam (Ativan) 2 mg Q4H PRN GTB ANXIETY Last administered on 11/02/18 20:26; Admin Dose 2 MG; Start 10/31/18 at 12:00 Propofol 100 ml @ 7.909 mls/ hr Q12H IV Last administered on 11/08/18 09:49; Admin Dose 39.546 MLS/HR; Start 11/01/18 at 09:00 Acetylcysteine (Mucomyst) 3 ml Q6H RESP THERAPY PRN NEB WHEEZING AND RESP DISTRESS Last administered on 11/02/18 02:43; Admin Dose 3 ML; Start 11/01/18 at 23:00 Hydralazine HCl (Apresoline) 10 mg Q4H PRN IV ELEVATED SYSTOLIC BP Last administered on 11/08/18 03:21; Admin Dose 10 MG; Start 11/02/18 at 00:30 Acetylcysteine (Mucomyst) 1 ml Q6H RESP THERAPY NEB Last administered on 11/08/18 07:37; Admin Dose 1 ML; Start 11/02/18 at 08:00 Dexmedetomidine HCl 200 mcg/ Sodium Chloride 50 ml @ 13.18 mls/ hr TITRATE IV ; Start 11/02/18 at 10:00 Insulin Glargine (Lantus) 35 units BID@0800,2000 SC Last administered on 11/08/18 09:30; Admin Dose 35 UNITS; Start 11/05/18 at 20:00 Lactulose (Enulose) 30 gm Q6 PO Last administered on 11/08/18 05:11; Admin Dose 30 GM; Start 11/05/18 at 18:00 Dextrose/Sodium Chloride 1,000 ml @ 75 mls/hr [id number] IV Last administered on 11/08/18 09:34; Admin Dose 75 MLS/HR; Start 11/06/18 at 05:[address] [place] Nov 08, 2018 10:40
--- NOTE | 2018-11-08 13:16 | PN ---
Date/Time of Note Date/Time of Note DATE: 11/08/18 TIME: 13:15 Assessment/Plan Lines/Catheters IV Catheter Type (from Nrsg): PICC Line Assessment/Plan Assessment/Plan Respiratory failure Patient will need tracheostomy Considering his size he would benefit from a long extra long tracheostomy tube Patient refused surgery today we will proceed with tracheostomy when the patient is agreeable Subjective 24 Hr Interval Summary Constitutional: improved Pain Control: mild Exam/Review of Systems Vital Signs Vitals Vital Signs Date Temp Pulse Resp B/P (MAP) Pulse Ox O2 O2 Flow FiO2 Time Delivery Rate 11/08/18 25 151/86 79 10:00 (107) 11/08/18 117 09:00 11/08/18 40 08:00 11/08/18 98.8 08:00 11/08/18 Mechanical 07:00 Ventilator Intake and Output 11/07/18 11/07/18 11/08/18 1515:00 23:00 07:00 IntakeIntake Total 965.095 ml 896.277 ml 1076.810 ml OutputOutput Total 720 ml 720 ml 910 ml BalanceBalance 245.095 ml 176.277 ml 166.810 ml Exam Eyes: nl conjunctiva, EOMI, nl lids, nl sclera ENMT: nl external ears & nose, nl lips & teeth, nl nasal mucosa & septum, mucosa pink and moist Neck: supple, non-tender Respiratory: clear to auscultation, normal air movement Cardiovascular: regular rate and rhythm, nl pulses Gastrointestinal: soft, nl liver, spleen, non-tender Musculoskeletal: nl extremities to inspection, nl gait and stance Results Result Diagram: 11/08/18 0506 11/08/18 0506 KARINA VALADEZ MD Nov 08, 2018 13:16
[2018-11-09] VITALS (49 sets, daily range): BP systolic 97–160; BP diastolic 58–104; PULSE 53–90; RESP 15–25
[2018-11-09] MEDS: INSULIN ASPART [NOVOLOG] 3 ML PEN SC SCH ×6 (00:59→21:10)
[2018-11-09] MEDS: IPRATROPIUM (HFA) 12.9 GM INHALER INH SCH ×4 (01:37→20:10)
[2018-11-09] MEDS: ALBUTEROL HFA 8 GM INHALER INH SCH ×4 (01:38→20:10)
[2018-11-09] MEDS: ACETYLCYSTEINE 20% 4 ML VIAL NEB SCH ×4 (01:38→20:10)
[2018-11-09] MEDS: PROPOFOL 100 ML IV SCH ×9 (01:43→22:30)
[2018-11-09] MEDS: ACCU-CHEK XX SCH (02:09)
[2018-11-09] MEDS: METHYLPREDNISOLONE 40 MG INJ IV SCH (05:31)
[2018-11-09] MEDS: LACTULOSE 30ML CUP PO SCH ×3 (05:31→17:23)
[2018-11-09] MEDS: MIDAZOLAM (DRIP) 50 mg/50 mL 50 ML IV SCH ×3 (05:33→17:34)
--- NOTE | 2018-11-09 08:19 | CONS ---
Assessment/Plan Assessment/Plan Assessment/Plan (Daily) Ventilator settings have been adjusted, patient has been reverted back to assist control mode with rate of 16, tidal volume increased to 500, PEEP is 5 with 35% FiO2. Patient is currently on propofol at 20 mics per kilogram per minute. Also getting enteral feeding via OG tube. Assessment and recommendations; 1. Patient admitted with severe respiratory failure due to underlying sleep apnea/obesity hypoventilation syndrome with superimposed congestive heart failure with massive edema. 2. History of diabetes. 3. Failure to be weaned from ventilator despite multiple times. Continue current supportive care. Patient will need to have a tracheostomy performed. The patient's family has refused tracheostomy in an attempt to see if the patient can be weaned off from invasive mechanical ventilation which in the current scenario is highly unlikely. Even if the patient is extubated he would be at extremely high risk for recurrent respiratory failure and possibly cardiac arrest event. Consultation Date/Type/Reason Admit Date/Time Oct 17, 2018 at 14:17 Initial Consult Date 10/18/18 Type of Consult Pulmonary/critical care Patient is a 52-year-old male who was brought into the hospital because of shortness of breath. Patient was in respiratory failure and required intubation. ABG was done which showed severe hypercapnia. By the time I saw the patient, patient is orally intubated and sedated. History was obtained from medical record as well as from patient's sister who was present in the room. Past medical history; 1. Chronic renal insufficiency. 2. Morbid obesity. Likely underlying sleep apnea syndrome. 3. Diabetes. 4. Hypertension. Medications; reviewed. Patient is currently on insulin drip at 7 units/h, propofol 20 mics per kilogram per minute. Other medications were reviewed as well. Allergies; none. Social history; positive for alcohol abuse and smoking. Family history; he is single, has 3 children. Patient is with his sisters who take care of him. Occupational history; patient is on medical leave. Review of system; unable to be obtained. General exam; middle-aged male, morbidly obese, orally intubated, sedated, currently in no distress. Date/Time of Note DATE: 11/09/18 TIME: 08:16 24 HR Interval Summary Free Text/Dictation Patient's condition remains critical. Has failed multiple weaning trials from ventilator. Patient however has remained hemodynamically stable. General exam; middle-aged male, morbidly obese, orally intubated, sedated, currently in no distress. Exam/Review of Systems Exam Vitals Vital Signs Date Temp Pulse Resp B/P (MAP) Pulse Ox O2 O2 Flow FiO2 Time Delivery Rate 11/09/18 81 20 134/77 91 Mechanical 06:30 (96) Ventilator 11/09/18 45 04:50 11/09/18 98.5 04:00 Intake and Output 11/08/18 11/08/18 11/09/18 1515:00 23:00 07:00 IntakeIntake Total 1348.0 ml 1632.60 ml 1745.16 ml OutputOutput Total 1610 ml 740 ml 730 ml BalanceBalance -262.0 ml 892.60 ml 1015.16 ml Exam H EENT exam; supple neck, JVD difficult to see because of short neck. Orally intubated. Patient has fair dentition. Pupils are small bilaterally. No neck masses. Chest exam; diminished breath sounds throughout. S1-S2 audible, no murmurs. Regular rhythm. Abdomen exam; soft, protuberant. Bowel sounds audible. Organomegaly difficult to assess. Extremity exam; trace lower extremity edema with chronic lower extremity skin changes. TIN POURER exam; patient is sedated. Results Result Diagram: 11/08/18 0506 11/08/18 0506 Results 24hrs Laboratory Tests Test 11/08/18 09:23 11/08/18 12:25 11/08/18 17:14 11/08/18 21:00 Bedside Glucose 160 155 177 204 Test 11/09/18 00:50 11/09/18 01:45 11/09/18 04:48 Bedside Glucose 191 200 168 Medications Medication Current Medications IV Flush (NS 3 ml) 3 ml PER PROTOCOL IV ; Start 10/17/18 at 15:30 Hydromorphone HCl (Dilaudid) 0.5 mg Q4H PRN IV SEVERE PAIN LEVEL 7-10 Last administered on 11/01/18at 01:27; Admin Dose 0.5 MG; Start 10/17/18 at 15:30 Furosemide (Lasix) 40 mg BID DIURETICS IV Last administered on 11/06/18at 05: 39; Admin Dose 40 MG; Start 10/19/18 at 10:30; Status Hold Nystatin (Nystatin Powder) 1 applic BID TOP Last administered on 11/08/18 20:57; Admin Dose 1 APPLIC; Start 10/19/18 at 21:00 Enoxaparin Sodium (Lovenox) 60 mg DAILY SC Last administered on 11/08/18 09:30; Admin Dose 60 MG; Start 10/21/18 at 09:00 Ipratropium [place] (Atrovent Hfa) 4 puff Q6H RESP THERAPY INH Last administered on 11/09/18 07:21; Admin Dose 4 PUFF; Start 10/20/18 at 20:00 Albuterol (Ventolin Hfa) 4 puff Q6H RESP THERAPY INH Last administered on 11/09/18 07:22; Admin Dose 4 PUFF; Start 10/20/18 at 20:00 Diagnostic Test (Pha) (Accu-Chek) 1 ea 02 XX Last administered on 11/09/18 02:09; Admin Dose 1 EA; Start 10/21/18 at 02:00 Miscellaneous Information 1 ea NOTE XX ; Start 10/20/18 at 16:30 Glucose (Glutose) 15 gm Q15M PRN PO DECREASED GLUCOSE; Start 10/20/18 at 16:30 Glucose (Glutose) 22.5 gm Q15M PRN PO DECREASED GLUCOSE; Start 10/20/18 at 16:30 Dextrose (D50w Syringe) 25 ml Q15M PRN IV DECREASED GLUCOSE; Start 10/20/18 at 16:30 Dextrose (D50w Syringe) 50 ml Q15M PRN IV DECREASED GLUCOSE; Start 10/20/18 at 16:30 Glucagon (Glucagen) 1 mg Q15M PRN IM DECREASED GLUCOSE; Start 10/20/18 at 16:30 Glucose (Glutose) 15 gm Q15M PRN BUCCAL DECREASED GLUCOSE; Start 10/20/18 at 16:30 IV Flush (NS 10 ml) 10 ml PRN PRN IV IV PROTOCOL; Start 10/20/18 at 16:30 Midazolam HCl 50 ml @ 1 mls/hr TITRATE IV Last administered on 11/09/18 06:46; Admin Dose 7 MLS/HR; Start 10/22/18 at 02:30 Fentanyl 1000 mcg/ Sodium Chloride 100 ml @ 2.5 mls/hr TITRATE IV Last administered on 11/08/18 22:31; Admin Dose 8 MLS/HR; Start 10/22/18 at 11:30 Docusate Sodium (Colace Liquid Cup) 100 mg BID GTB Last administered on 11/08/18 20:56; Admin Dose 100 MG; Start 10/22/18 at 21:00 Acetaminophen (Tylenol Tab) 650 mg Q6H PRN PO MILD PAIN(1-3)OR ELEVATED TEMP Last administered on 10/25/18 06:33; Admin Dose 650 MG; Start 10/23/18 at 20:30 Methylprednisolone Sodium Succinate (Solu-Medrol) 40 mg Q6 IV Last administered on 11/09/18 05:31; Admin Dose 40 MG; Start 10/27/18 at 12:00 Insulin Aspart (Novolog Insulin Pen) NOVOLOG *MODERATE* [place]GORI... Q4 SC Last administered on 11/09/18 04:57; Admin Dose 2 UNIT; Start 10/27/18 at 21:00 Lisinopril (Zestril) 20 mg DAILY NGT Last administered on 11/08/18 09:34; Admin Dose 20 MG; Start 10/30/18 at 10:00 Famotidine (Pepcid) 20 mg Q12 GTB Last administered on 11/08/18 20:56; Admin Dose 20 MG; Start 10/31/18 at 21:00 Bisacodyl (Dulcolax Supp) 10 mg Q24H PRN [place] CONSTIPATION Last administered on 11/02/18 09:28; Admin Dose 10 MG; Start 10/31/18 at 11:30 Sodium Biphosphate/ Sodium Phosphate (Fleet Enema) 133 ml Q24H PRN [place] CONSTIPATION Last administered on 11/02/18 09:28; Admin Dose 133 ML; Start 10/31/18 at 11:30 Lorazepam (Ativan) 2 mg Q4H PRN GTB ANXIETY Last administered on 11/02/18 20:26; Admin Dose 2 MG; Start 10/31/18 at 12:00 Propofol 100 ml @ 7.909 mls/ hr Q12H IV Last administered on 11/09/18 06:43; Admin Dose 39.52 MLS/HR; Start 11/01/18 at 09:00 Acetylcysteine (Mucomyst) 3 ml Q6H RESP THERAPY PRN NEB WHEEZING AND RESP DISTRESS Last administered on 11/02/18 02:43; Admin Dose 3 ML; Start 11/01/18 at 23:00 Hydralazine HCl (Apresoline) 10 mg Q4H PRN IV ELEVATED SYSTOLIC BP Last administered on 11/08/18 03:21; Admin Dose 10 MG; Start 11/02/18 at 00:30 Acetylcysteine (Mucomyst) 1 ml Q6H RESP THERAPY NEB Last administered on 11/09/18 07:22; Admin Dose 1 ML; Start 11/02/18 at 08:00 Dexmedetomidine HCl 200 mcg/ Sodium Chloride 50 ml @ 13.18 mls/ hr TITRATE IV ; Start 11/02/18 at 10:00 Insulin Glargine (Lantus) 35 units BID@0800,2000 SC Last administered on 11/08/18 20:14; Admin Dose 35 UNITS; Start 11/05/18 at 20:00 Lactulose (Enulose) 30 gm Q6 PO Last administered on 11/09/18 05:31; Admin Dose 30 GM; Start 11/05/18 at 18:00 Dextrose/Sodium Chloride 1,000 ml @ 75 mls/hr [id number] IV Last administered on 11/08/18 20:41; Admin Dose 75 MLS/HR; Start 11/06/18 at 05:00 ETTA BRANTLEY Nov 09, 2018 08:19
[2018-11-09] MEDS: INSULIN GLARGINE [LANTus] (100 UNITS/ML) SYG SC SCH ×2 (08:57→21:08)
[2018-11-09] MEDS: DOCUSATE SODIUM 10 MG/ML (10ML CUP) GTB SCH ×2 (08:59→21:07)
[2018-11-09] MEDS: ENOXAPARIN 60 MG/0.6 ML SYG SC SCH (08:59)
[2018-11-09] MEDS: FAMOTIDINE 20 MG TAB GTB SCH ×2 (08:59→21:07)
[2018-11-09] MEDS: LISINOPRIL 20 MG TAB NGT SCH (09:00)
[2018-11-09] MEDS: NYSTATIN 30 GM POWDER BTL TOP SCH ×2 (09:00→21:07)
[2018-11-09] MEDS: DEXTROSE 5%-0.45% NACL 1,000 ML IV SCH (11:41)
--- NOTE | 2018-11-09 11:56 | PN ---
Date/Time of Note Date/Time of Note DATE: 11/09/18 TIME: 11:56 Assessment/Plan Lines/Catheters IV Catheter Type (from Nrsg): PICC Line [place] in Place (from Nrsg): Yes Assessment/Plan Assessment/Plan Respiratory failure Patient will need tracheostomy Considering his size he would benefit from a long extra long tracheostomy tube Patient refused surgery today we will proceed with tracheostomy when the patient is agreeable Will wean for extubation Subjective 24 Hr Interval Summary Constitutional: improved Pain Control: mild Exam/Review of Systems Vital Signs Vitals Vital Signs Date Temp Pulse Resp B/P (MAP) Pulse Ox O2 O2 Flow FiO2 Time Delivery Rate 11/09/18 64 21 102/59 90 Mechanical 10:00 (73) Ventilator 11/09/18 98.7 08:00 11/09/18 45 04:50 Intake and Output 11/08/18 11/08/18 11/09/18 1515:00 23:00 07:00 IntakeIntake Total 1348.0 ml 1632.60 ml 1745.16 ml OutputOutput Total 1610 ml 740 ml 730 ml BalanceBalance -262.0 ml 892.60 ml 1015.16 ml Exam Eyes: nl conjunctiva, EOMI, nl lids, nl sclera ENMT: nl external ears & nose, nl lips & teeth, nl nasal mucosa & septum, mucosa pink and moist Neck: supple, non-tender Respiratory: clear to auscultation, normal air movement Cardiovascular: regular rate and rhythm, nl pulses Gastrointestinal: soft, nl liver, spleen, non-tender Results Result Diagram: 11/08/18 0506 11/08/18 0506 KARINA VALADEZ MD Nov 09, 2018 11:56
--- NOTE | 2018-11-09 11:57 | PN ---
Date/Time of Note Date/Time of Note DATE: 11/09/18 TIME: 11:56 Assessment/Plan VTE Prophylaxis Risk score (from Nsg)>0 risk: 8 Pharmacological prophylaxis: LMWH Assessment/Plan Hospital Course 1. Bradycardia-stable - most likely sedation induced 2. Acute hypercapnic and hypoxemic respiratory failure secondary to diastolic CHF and/or pneumonia with underlying OHS and hypercapnia - Continue weaning PEEP and O2 -Status post cefepime and Lasix -Patient does require a trach but family is refusing 3. Sepsis with fevers and tachycardia likely secondary to pneumonia-resolved -Status post cefepime - Single blood culture is positive for coag negative staph but is likely a contaminant 4. Severe morbid obesity - Lifestyle changes -Patient has lost a significant amount of weight during this hospital stay 5. Diabetes - Adjusted Lantus for better control Prophylaxis: Lovenox Disposition -Family is refusing trach placement, continue to wean off vent as able Result Diagram: 11/08/18 0506 11/08/18 0506 Results 24hrs Laboratory Tests Test 11/08/18 12:25 11/08/18 17:14 11/08/18 21:00 11/09/18 00:50 Bedside Glucose 155 177 204 191 Test 11/09/18 01:45 11/09/18 04:48 11/09/18 08:54 Bedside Glucose 200 168 182 Subjective 24 Hr Interval Summary Subjective hx not possible: pt non-verbal Exam/Review of Systems Exam Vitals Vital Signs Date Temp Pulse Resp B/P (MAP) Pulse Ox O2 O2 Flow FiO2 Time Delivery Rate 11/09/18 64 21 102/59 90 Mechanical 10:00 (73) Ventilator 11/09/18 98.7 08:00 11/09/18 45 04:50 Intake and Output 11/08/18 11/08/18 11/09/18 1515:00 23:00 07:00 IntakeIntake Total 1348.0 ml 1632.60 ml 1745.16 ml OutputOutput Total 1610 ml 740 ml 730 ml BalanceBalance -262.0 ml 892.60 ml 1015.16 ml Constitutional: non-verbal ENMT: intubated Respiratory: clear to auscultation Cardiovascular: regular rate and rhythm Gastrointestinal: soft; No distended Musculoskeletal: nl extremities to inspection Results Results 24hrs Laboratory Tests Test 11/08/18 12:25 11/08/18 17:14 11/08/18 21:00 11/09/18 00:50 Bedside Glucose 155 177 204 191 Test 11/09/18 01:45 11/09/18 04:48 11/09/18 08:54 Bedside Glucose 200 168 182 Medications Medication Current Medications IV Flush (NS 3 ml) 3 ml PER PROTOCOL IV ; Start 10/17/18 at 15:30 Hydromorphone HCl (Dilaudid) 0.5 mg Q4H PRN IV SEVERE PAIN LEVEL 7-10 Last administered on 11/01/18 01:27; Admin Dose 0.5 MG; Start 10/17/18 at 15:30 Furosemide (Lasix) 40 mg BID DIURETICS IV Last administered on 11/06/18 05:39; Admin Dose 40 MG; Start 10/19/18 at 10:30; Status Hold Nystatin (Nystatin Powder) 1 applic BID TOP Last administered on 11/09/18 09:00; Admin Dose 1 APPLIC; Start 10/19/18 at 21:00 Enoxaparin Sodium (Lovenox) 60 mg DAILY SC Last administered on 11/09/18 08:59; Admin Dose 60 MG; Start 10/21/18 at 09:00 Ipratropium [place] (Atrovent Hfa) 4 puff Q6H RESP THERAPY INH Last administered on 11/09/18 07:21; Admin Dose 4 PUFF; Start 10/20/18 at 20:00 Albuterol (Ventolin Hfa) 4 puff Q6H RESP THERAPY INH Last administered on 11/09/18 07:22; Admin Dose 4 PUFF; Start 10/20/18 at 20:00 Diagnostic Test (Pha) (Accu-Chek) 1 ea 02 XX Last administered on 11/09/18 02:09; Admin Dose 1 EA; Start 10/21/18 at 02:00 Miscellaneous Information 1 ea NOTE XX ; Start 10/20/18 at 16:30 Glucose (Glutose) 15 gm Q15M PRN PO DECREASED GLUCOSE; Start 10/20/18 at 16:30 Glucose (Glutose) 22.5 gm Q15M PRN PO DECREASED GLUCOSE; Start 10/20/18 at 16:30 Dextrose (D50w Syringe) 25 ml Q15M PRN IV DECREASED GLUCOSE; Start 10/20/18 at 16:30 Dextrose (D50w Syringe) 50 ml Q15M PRN IV DECREASED GLUCOSE; Start 10/20/18 at 16:30 Glucagon (Glucagen) 1 mg Q15M PRN IM DECREASED GLUCOSE; Start 10/20/18 at 16:30 Glucose (Glutose) 15 gm Q15M PRN BUCCAL DECREASED GLUCOSE; Start 10/20/18 at 16:30 IV Flush (NS 10 ml) 10 ml PRN PRN IV IV PROTOCOL; Start 10/20/18 at 16:30 Midazolam HCl 50 ml @ 1 mls/hr TITRATE IV Last administered on 11/09/18 06:46; Admin Dose 7 MLS/HR; Start 10/22/18 at 02:30 Fentanyl 1000 mcg/ Sodium Chloride 100 ml @ 2.5 mls/hr TITRATE IV Last administered on 11/08/18 22:31; Admin Dose 8 MLS/HR; Start 10/22/18 at 11:30 Docusate Sodium (Colace Liquid Cup) 100 mg BID GTB Last administered on 11/09/18 08:59; Admin Dose 100 MG; Start 10/22/18 at 21:00 Acetaminophen (Tylenol Tab) 650 mg Q6H PRN PO MILD PAIN(1-3)OR ELEVATED TEMP Last administered on 10/25/18 06:33; Admin Dose 650 MG; Start 10/23/18 at 20:30 Insulin Aspart (Novolog Insulin Pen) NOVOLOG *MODERATE* ALGORI... Q4 SC Last administered on 11/09/18 08:58; Admin Dose 4 UNIT; Start 10/27/18 at 21:00 Lisinopril (Zestril) 20 mg DAILY NGT Last administered on 11/09/18 09:00; Admin Dose 20 MG; Start 10/30/18 at 10:00 Famotidine (Pepcid) 20 mg Q12 GTB Last administered on 11/09/18 08:59; Admin Dose 20 MG; Start 10/31/18 at 21:00 Bisacodyl (Dulcolax Supp) 10 mg Q24H PRN [place] CONSTIPATION Last administered on 11/02/18 09:28; Admin Dose 10 MG; Start 10/31/18 at 11:30 Sodium Biphosphate/ Sodium Phosphate (Fleet Enema) 133 ml Q24H PRN [place] CONSTIPATION Last administered on 11/02/18 09:28; Admin Dose 133 ML; Start 10/31/18 at 11:30 Lorazepam (Ativan) 2 mg Q4H PRN GTB ANXIETY Last administered on 11/02/18 20:26; Admin Dose 2 MG; Start 10/31/18 at 12:00 Propofol 100 ml @ 7.909 mls/ hr Q12H IV Last administered on 11/09/18 09:39; Admin Dose 39.546 MLS/HR; Start 11/01/18 at 09:00 Acetylcysteine (Mucomyst) 3 ml Q6H RESP THERAPY PRN NEB WHEEZING AND RESP DISTRESS Last administered on 11/02/18 02:43; Admin Dose 3 ML; Start 11/01/18 at 23:00 Hydralazine HCl (Apresoline) 10 mg Q4H PRN IV ELEVATED SYSTOLIC BP Last administered on 11/08/18 03:21; Admin Dose 10 MG; Start 11/02/18 at 00:30 Acetylcysteine (Mucomyst) 1 ml Q6H RESP THERAPY NEB Last administered on 11/09/18 07:22; Admin Dose 1 ML; Start 11/02/18 at 08:00 Dexmedetomidine HCl 200 mcg/ Sodium Chloride 50 ml @ 13.18 mls/ hr TITRATE IV ; Start 11/02/18 at 10:00 Insulin Glargine (Lantus) 35 units BID@0800,2000 SC Last administered on 11/09/18 08:57; Admin Dose 35 UNITS; Start 11/05/18 at 20:00 Lactulose (Enulose) 30 gm Q6 PO Last administered on 11/09/18 05:31; Admin Dose 30 GM; Start 11/05/18 at 18:00 Dextrose/Sodium Chloride 1,000 ml @ 75 mls/hr [id number] IV Last administered on 11/09/18 11:41; Admin Dose 75 MLS/HR; Start 11/06/18 at 05:00 Senna (Senokot) 2 tab BID PO ; Start 11/09/18 at 21:[address] [place] Nov 09, 2018 11:57
[2018-11-09] MEDS: FENTAnyl 1,000 MCG in SOD CHLORIDE 0.9% 80 ML IV SCH (12:32)
[2018-11-09] MEDS: SENNA TAB PO SCH (21:07)
[2018-11-10] VITALS (37 sets, daily range): BP systolic 67–150; BP diastolic 30–124; PULSE 69–190; RESP 16–28
[2018-11-10] MEDS: PROPOFOL 100 ML IV SCH ×4 (00:15→07:43)
[2018-11-10] MEDS: INSULIN ASPART [NOVOLOG] 3 ML PEN SC SCH ×6 (01:00→20:37)
[2018-11-10] MEDS: LACTULOSE 30ML CUP PO SCH ×6 (01:16→21:53)
[2018-11-10] MEDS: IPRATROPIUM (HFA) 12.9 GM INHALER INH SCH ×2 (01:46→07:30)
[2018-11-10] MEDS: ACETYLCYSTEINE 20% 4 ML VIAL NEB SCH ×3 (01:46→20:57)
[2018-11-10] MEDS: ALBUTEROL HFA 8 GM INHALER INH SCH ×2 (01:46→07:30)
[2018-11-10] MEDS: ACCU-CHEK XX SCH ×2 (02:00→21:53)
[2018-11-10] MEDS: MIDAZOLAM (DRIP) 50 mg/50 mL 50 ML IV SCH ×2 (02:09→09:21)
[2018-11-10] MEDS: FENTAnyl 1,000 MCG in SOD CHLORIDE 0.9% 80 ML IV SCH (02:11)
[2018-11-10] MEDS: DEXTROSE 5%-0.45% NACL 1,000 ML IV SCH ×2 (02:20→20:52)
[2018-11-10] MEDS: ENOXAPARIN 60 MG/0.6 ML SYG SC SCH (08:55)
[2018-11-10] MEDS: INSULIN GLARGINE [LANTus] (100 UNITS/ML) SYG SC SCH ×2 (08:55→20:00)
[2018-11-10] MEDS: NYSTATIN 30 GM POWDER BTL TOP SCH ×2 (08:56→20:37)
[2018-11-10] MEDS: SENNA TAB PO SCH ×2 (08:56→20:37)
[2018-11-10] MEDS: DOCUSATE SODIUM 10 MG/ML (10ML CUP) GTB SCH ×2 (08:56→20:36)
[2018-11-10] MEDS: LISINOPRIL 20 MG TAB NGT SCH (08:56)
[2018-11-10] MEDS: FAMOTIDINE 20 MG TAB GTB SCH ×2 (08:56→20:36)
--- NOTE | 2018-11-10 09:36 | CONS ---
Assessment/Plan Assessment/Plan Assessment/Plan (Daily) Ventilator setting; AC of 16, tidal volume 500, PEEP of 10, 45% FiO2. Patient is currently on propofol 20 mics per kilogram per minute, Versed 6 mg/h, fentanyl 50 mics per hour. Assessment recommendations; 1. Patient admitted with respiratory failure due to severe hypoxemia and hypercapnia due to CHF. Patient has diuresed well with massive edema at presentation. 2. History of diabetes and hypertension. 3. Obesity/hypoventilation syndrome. 4. Patient has failed multiple weaning trials from ventilator. Continue current supportive care. Perform another CPAP trial per family's wishes. The patient's family has refused tracheostomy. Consultation Date/Type/Reason Admit Date/Time Oct 17, 2018 at 14:17 Initial Consult Date 10/18/18 Type of Consult Pulmonary/critical care Patient is a 52-year-old male who was brought into the hospital because of shortness of breath. Patient was in respiratory failure and required intubation. ABG was done which showed severe hypercapnia. By the time I saw the patient, patient is orally intubated and sedated. History was obtained from medical record as well as from patient's sister who was present in the room. Past medical history; 1. Chronic renal insufficiency. 2. Morbid obesity. Likely underlying sleep apnea syndrome. 3. Diabetes. 4. Hypertension. Medications; reviewed. Patient is currently on insulin drip at 7 units/h, propofol 20 mics per kilogram per minute. Other medications were reviewed as well. Allergies; none. Social history; positive for alcohol abuse and smoking. Family history; he is single, has 3 children. Patient is with his sisters who take care of him. Occupational history; patient is on medical leave. Review of system; unable to be obtained. General exam; middle-aged male, morbidly obese, orally intubated, sedated, currently in no distress. Date/Time of Note DATE: 11/10/18 TIME: 09:34 24 HR Interval Summary Free Text/Dictation Patient's condition remains critical. Has failed multiple CPAP trials. Patient however has remained hemodynamically stable. General exam; middle-aged male, morbidly obese, orally intubated, sedated, currently in no distress. Exam/Review of Systems Exam Vitals Vital Signs Date Temp Pulse Resp B/P (MAP) Pulse Ox O2 O2 Flow FiO2 Time Delivery Rate 11/10/18 79 23 108/59 92 Mechanical 09:00 (75) Ventilator 11/10/18 99.0 08:00 11/10/18 40 08:00 Intake and Output 11/09/18 11/09/18 11/10/18 1515:00 23:00 07:00 IntakeIntake Total 1676.368 ml 1267.604 ml 1003.459 ml OutputOutput Total 555 ml 570 ml 340 ml BalanceBalance 1121.368 ml 697.604 ml 663.459 ml Exam H EENT exam; supple neck, JVD difficult to see because of short neck. No neck masses. Orally intubated. Patient has fair dentition. Pupils are small b ilaterally. Chest exam; diminished breath sounds throughout. S1-S2 audible, no murmurs. Regular rhythm. Abdomen exam; soft, protuberant. Bowel sounds audible. Organomegaly difficult to assess. Extremity exam; no peripheral edema. Patient does have chronic lower extremity skin changes. [employer] IN[employer] exam; patient is sedated. Results Result Diagram: 11/10/1842911/10/18 043 Results 24hrs Laboratory Tests Test 11/09/18 13:08 11/09/18 17:22 11/09/18 21:06 11/10/18 01:15 Bedside Glucose 172 151 146 105 Test 11/10/18 04:30 11/10/18 05:42 11/10/18 08:53 White Blood Count 13.6 H Red Blood Count 5.17 Hemoglobin 13.7 L Hematocrit 45.4 Mean Corpuscular Volume 87.8 Mean Corpuscular 26.5 L Hemoglobin Mean Corpuscular 30.2 L Hemoglobin Concent Red Cell Distribution 19.4 H Width Platelet Count 324 Mean Platelet Volume 11.2 H Immature Granulocytes % 1.500 H Neutrophils % 57.9 Lymphocytes % 25.5 Monocytes % 13.2 H Eosinophils % 1.5 Basophils % 0.4 Nucleated Red Blood 0.0 Cells % Immature Granulocytes # 0.200 H Neutrophils # 7.9 H Lymphocytes # 3.5 H Monocytes # 1.8 H Eosinophils # 0.2 Basophils # 0.1 Nucleated Red Blood 0.0 Cells # Sodium Level 140 Potassium Level 3.4 L Chloride Level 98 Carbon Dioxide Level 39 H Anion Gap 3 L Blood Urea Nitrogen 23 H Creatinine 0.55 L Est Glomerular Filtrat > 60 Rate mL/min Glucose Level 106 # Calcium Level 8.8 Bedside Glucose 100 85 Medications Medication Current Medications IV Flush (NS 3 ml) 3 ml PER PROTOCOL IV ; Start 10/17/18 at 15:30 Hydromorphone HCl (Dilaudid) 0.5 mg Q4H PRN IV SEVERE PAIN LEVEL 7-10 Last administered on 11/01/18 01:27; Admin Dose 0.5 MG; Start 10/17/18 at 15:30 Furosemide (Lasix) 40 mg BID DIURETICS IV Last administered on 11/06/18at 05:39; Admin Dose 40 MG; Start 10/19/18 at 10:30; Status Hold Nystatin (Nystatin Powder) 1 applic BID TOP Last administered on 11/10/18 08: 56; Admin Dose 1 APPLIC; Start 10/19/18 at 21:00 Enoxaparin Sodium (Lovenox) 60 mg DAILY SC Last administered on 11/10/18 08:55; Admin Dose 60 MG; Start 10/21/18 at 09:00 Ipratropium [place] (Atrovent Hfa) 4 puff Q6H RESP THERAPY INH Last administered on 11/10/18 07:30; Admin Dose 4 PUFF; Start 10/20/18 at 20:00 Albuterol (Ventolin Hfa) 4 puff Q6H RESP THERAPY INH Last administered on 11/10/18 07:30; Admin Dose 4 PUFF; Start 10/20/18 at 20:00 Diagnostic Test (Pha) (Accu-Chek) 1 ea 02 XX Last administered on 11/09/18 02:09; Admin Dose 1 EA; Start 10/21/18 at 02:00 Miscellaneous Information 1 ea NOTE XX ; Start 10/20/18 at 16:30 Glucose (Glutose) 15 gm Q15M PRN PO DECREASED GLUCOSE; Start 10/20/18 at 16:30 Glucose (Glutose) 22.5 gm Q15M PRN PO DECREASED GLUCOSE; Start 10/20/18 at 16: 30 Dextrose (D50w Syringe) 25 ml Q15M PRN IV DECREASED GLUCOSE; Start 10/20/18 at 16:30 Dextrose (D50w Syringe) 50 ml Q15M PRN IV DECREASED GLUCOSE; Start 10/20/18 at 16:30 Glucagon (Glucagen) 1 mg Q15M PRN IM DECREASED GLUCOSE; Start 10/20/18 at 16:30 Glucose (Glutose) 15 gm Q15M PRN BUCCAL DECREASED GLUCOSE; Start 10/20/18 at 16:30 IV Flush (NS 10 ml) 10 ml PRN PRN IV IV PROTOCOL; Start 10/20/18 at 16:30 Midazolam HCl 50 ml @ 1 mls/hr TITRATE IV Last administered on 11/10/18 09:21; Admin Dose 6 MLS/HR; Start 10/22/18 at 02:30 Fentanyl 1000 mcg/ Sodium Chloride 100 ml @ 2.5 mls/hr TITRATE IV Last administered on 11/10/18 02:11; Admin Dose 8 MLS/HR; Start 10/22/18 at 11:30 Docusate Sodium (Colace Liquid Cup) 100 mg BID GTB Last administered on 11/10/18 08:56; Admin Dose 100 MG; Start 10/22/18 at 21:00 Acetaminophen (Tylenol Tab) 650 mg Q6H PRN PO MILD PAIN(1-3)OR ELEVATED TEMP Last administered on 10/25/18 06:33; Admin Dose 650 MG; Start 10/23/18 at 20:30 Insulin Aspart (Novolog Insulin Pen) NOVOLOG *MODERATE* ALGORI... Q4 SC Last administered on 11/09/18 21:10; Admin Dose 2 UNIT; Start 10/27/18 at 21:00 Lisinopril (Zestril) 20 mg DAILY NGT Last administered on 11/10/18 08:56; Admin Dose 20 MG; Start 10/30/18 at 10:00 Famotidine (Pepcid) 20 mg Q12 GTB Last administered on 11/10/18 08:56; Admin Dose 20 MG; Start 10/31/18 at 21:00 Bisacodyl (Dulcolax Supp) 10 mg Q24H PRN [place] CONSTIPATION Last administered on 11/02/18 09:28; Admin Dose 10 MG; Start 10/31/18 at 11:30 Sodium Biphosphate/ Sodium Phosphate (Fleet Enema) 133 ml Q24H PRN [place] CONSTIPATION Last administered on 11/02/18 09:28; Admin Dose 133 ML; Start 10/31/18 at 11:30 Lorazepam (Ativan) 2 mg Q4H PRN GTB ANXIETY Last administered on 11/02/18 20:26; Admin Dose 2 MG; Start 10/31/18 at 12:00 Propofol 100 ml @ 7.909 mls/ hr Q12H IV Last administered on 11/10/18 07:43; Admin Dose 31.637 MLS/HR; Start 11/01/18 at 09:00 Acetylcysteine (Mucomyst) 3 ml Q6H RESP THERAPY PRN NEB WHEEZING AND RESP DIST RESS Last administered on 11/02/18 02:43; Admin Dose 3 ML; Start 11/01/18 at 23:00 Hydralazine HCl (Apresoline) 10 mg Q4H PRN IV ELEVATED SYSTOLIC BP Last administered on 11/08/18 03:21; Admin Dose 10 MG; Start 11/02/18 at 00:30 Acetylcysteine (Mucomyst) 1 ml Q6H RESP THERAPY NEB Last administered on 11/10/18 07:47; Admin Dose 1 ML; Start 11/02/18 at 08:00 Dexmedetomidine HCl 200 mcg/ Sodium Chloride 50 ml @ 13.18 mls/ hr TITRATE IV ; Start 11/02/18 at 10:00 Insulin Glargine (Lantus) 35 units BID@0800,2000 SC Last administered on 11/10/18 08:55; Admin Dose 35 UNITS; Start 11/05/18 at 20:00 Lactulose (Enulose) 30 gm Q6 PO Last administered on 11/10/18 05:43; Admin Dose 30 GM; Start 11/05/18 at 18:00 Dextrose/Sodium Chloride 1,000 ml @ 75 mls/hr [id number] IV Last administered on 11/09/18 11:41; Admin Dose 75 MLS/HR; Start 11/06/18 at 05:00 Senna (Senokot) 2 tab BID PO Last administered on 11/10/18 08:56; Admin Dose 2 TAB; Start 11/09/18 at 21:00 ETTA BRANTLEY Nov 10, 2018 09:36
--- NOTE | 2018-11-10 12:30 | PN ---
Date/Time of Note Date/Time of Note DATE: 11/10/18 TIME: 12:29 Assessment/Plan Lines/Catheters IV Catheter Type (from Nrsg): PICC Line [place] in Place (from Nrsg): Yes Assessment/Plan Assessment/Plan Respiratory failure Patient will need tracheostomy Considering his size he would benefit from a long extra long tracheostomy tube Patient refused surgery today we will proceed with tracheostomy when the patient is agreeable Will wean for possible extubation Subjective 24 Hr Interval Summary Constitutional: improved Pain Control: mild Exam/Review of Systems Vital Signs Vitals Vital Signs Date Temp Pulse Resp B/P (MAP) Pulse Ox O2 O2 Flow FiO2 Time Delivery Rate 11/10/18 100 12:00 11/10/18 23 108/59 92 Mechanical 09:00 (75) Ventilator 11/10/18 99.0 08:00 11/10/18 40 08:00 Intake and Output 11/09/18 11/09/18 11/10/18 1515:00 23:00 07:00 IntakeIntake Total 1676.368 ml 1267.604 ml 1049.096 ml OutputOutput Total 555 ml 570 ml 340 ml BalanceBalance 1121.368 ml 697.604 ml 709.096 ml Exam Eyes: nl conjunctiva, EOMI, nl lids, nl sclera ENMT: nl external ears & nose, nl lips & teeth, nl nasal mucosa & septum, mucosa pink and moist Neck: supple, non-tender Respiratory: clear to auscultation, normal air movement Cardiovascular: regular rate and rhythm, nl pulses Gastrointestinal: soft, nl liver, spleen, non-tender Musculoskeletal: nl extremities to inspection, nl gait and stance Results Result Diagram: 11/10/1842911/10/18429 KARINA VALADEZ MD Nov 10, 2018 12:30
--- NOTE | 2018-11-10 14:22 | PN ---
Date/Time of Note Date/Time of Note DATE: 11/10/18 TIME: 14:18 Assessment/Plan VTE Prophylaxis Risk score (from Ns)>0 risk: 11 SCD applied (from Ns): Yes Pharmacological prophylaxis: heparin Lines/Catheters IV Catheter Type (from Nrsg): PICC Line Central line still needed: Yes Urinary Cath still in place: Yes Reason Cath still needed: urinary retention Assessment/Plan Hospital Course 52 yo male with h/o morbid obesity, DMII who presents with acute hypercapneic and hypoxic respiratory failure PULM: Respiratory failure: Very large A-a gradient and high FiO2 requiriement. Either CHF or pneumonia leading to hypoxia with OHS leading to hypercapnea - Mechancal ventilation per pulmonary - Bronchodilators - Likley needs trach CV: CHF: - Lasix to euvolemia - TTE wiht normal EF ENDO: DMII: - insulin Result Diagram: 11/10/18 04311/10/18 0430 Results 24hrs Laboratory Tests Test 11/09/18 17:22 11/09/18 21:06 11/10/18 01:15 11/10/18 04:30 Bedside Glucose 151 146 105 White Blood Count 13.6 H Red Blood Count 5.17 Hemoglobin 13.7 L Hematocrit 45.4 Mean Corpuscular Volume 87.8 Mean Corpuscular 26.5 L Hemoglobin Mean Corpuscular 30.2 L Hemoglobin Concent Red Cell Distribution 19.4 H Width Platelet Count 324 Mean Platelet Volume 11.2 H Immature Granulocytes % 1.500 H Neutrophils % 57.9 Lymphocytes % 25.5 Monocytes % 13.2 H Eosinophils % 1.5 Basophils % 0.4 Nucleated Red Blood 0.0 Cells % Immature Granulocytes # 0.200 H Neutrophils # 7.9 H Lymphocytes # 3.5 H Monocytes # 1.8 H Eosinophils # 0.2 Basophils # 0.1 Nucleated Red Blood 0.0 Cells # Sodium Level 140 Potassium Level 3.4 L Chloride Level 98 Carbon Dioxide Level 39 H Anion Gap 3 L Blood Urea Nitrogen 23 H Creatinine 0.55 L Est Glomerular Filtrat > 60 Rate mL/min Glucose Level 106 # Calcium Level 8.8 Test 11/10/18 05:42 11/10/18 08:53 11/10/18 13:18 Bedside Glucose 100 85 82 Subjective 24 Hr Interval Summary Free Text/Dictation On CPAP trial today Family reluctant for trach Exam/Review of Systems Exam Vitals Vital Signs Date Temp Pulse Resp B/P (MAP) Pulse Ox O2 O2 Flow FiO2 Time Delivery Rate 11/10/18 104 93 12:15 11/10/18 23 45 11:15 11/10/18 108/59 Mechanical 09:00 (75) Ventilator 11/10/18 99.0 08:00 Intake and Output 11/09/18 11/09/18 11/10/18 1515:00 23:00 07:00 IntakeIntake Total 1676.368 ml 1267.604 ml 1049.096 ml OutputOutput Total 555 ml 570 ml 340 ml BalanceBalance 1121.368 ml 697.604 ml 709.096 ml Results Results 24hrs Laboratory Tests Test 11/09/18 17:22 11/09/18 21:06 11/10/18 01:15 11/10/18 04:30 Bedside Glucose 151 146 105 White Blood Count 13.6 H Red Blood Count 5.17 Hemoglobin 13.7 L Hematocrit 45.4 Mean Corpuscular Volume 87.8 Mean Corpuscular 26.5 L Hemoglobin Mean Corpuscular 30.2 L Hemoglobin Concent Red Cell Distribution 19.4 H Width Platelet Count 324 Mean Platelet Volume 11.2 H Immature Granulocytes % 1.500 H Neutrophils % 57.9 Lymphocytes % 25.5 Monocytes % 13.2 H Eosinophils % 1.5 Basophils % 0.4 Nucleated Red Blood 0.0 Cells % Immature Granulocytes # 0.200 H Neutrophils # 7.9 H Lymphocytes # 3.5 H Monocytes # 1.8 H Eosinophils # 0.2 Basophils # 0.1 Nucleated Red Blood 0.0 Cells # Sodium Level 140 Potassium Level 3.4 L Chloride Level 98 Carbon Dioxide Level 39 H Anion Gap 3 L Blood Urea Nitrogen 23 H Creatinine 0.55 L Est Glomerular Filtrat > 60 Rate mL/min Glucose Level 106 # Calcium Level 8.8 Test 11/10/18 05:42 11/10/18 08:53 11/10/18 13:18 Bedside Glucose 100 85 82 Medications Medication Current Medications IV Flush (NS 3 ml) 3 ml PER PROTOCOL IV ; Start 10/17/18 at 15:30 Hydromorphone HCl (Dilaudid) 0.5 mg Q4H PRN IV SEVERE PAIN LEVEL 7-10 Last administered on 11/01/18at 01:27; Admin Dose 0.5 MG; Start 10/17/18 at 15:30 Furosemide (Lasix) 40 mg BID DIURETICS IV Last administered on 11/06/18at 05:39; Admin Dose 40 MG; Start 10/19/18 at 10:30; Status Hold Nystatin (Nystatin Powder) 1 applic BID TOP Last administered on 11/10/18 08:56; Admin Dose 1 APPLIC; Start 10/19/18 at 21:00 Enoxaparin Sodium (Lovenox) 60 mg DAILY SC Last administered on 11/10/18 08:55; Admin Dose 60 MG; Start 10/21/18 at 09:00 Ipratropium [place] (Atrovent Hfa) 4 puff Q6H RESP THERAPY INH Last administered on 11/10/18 07:30; Admin Dose 4 PUFF; Start 10/20/18 at 20:00 Albuterol (Ventolin Hfa) 4 puff Q6H RESP THERAPY INH Last administered on 11/10/18 07:30; Admin Dose 4 PUFF; Start 10/20/18 at 20:00 Diagnostic Test (Pha) (Accu-Chek) 1 ea 02 XX Last administered on 11/09/18at 02:09; Admin Dose 1 EA; Start 10/21/18 at 02:00 Miscellaneous Information 1 ea NOTE XX ; Start 10/20/18 at 16:30 Glucose (Glutose) 15 gm Q15M PRN PO DECREASED GLUCOSE; Start 10/20/18 at 16:30 Glucose (Glutose) 22.5 gm Q15M PRN PO DECREASED GLUCOSE; Start 10/20/18 at 16:30 Dextrose (D50w Syringe) 25 ml Q15M PRN IV DECREASED GLUCOSE; Start 10/20/18 at 16:30 Dextrose (D50w Syringe) 50 ml Q15M PRN IV DECREASED GLUCOSE; Start 10/20/18 at 16:30 Glucagon (Glucagen) 1 mg Q15M PRN IM DECREASED GLUCOSE; Start 10/20/18 at 16:30 Glucose (Glutose) 15 gm Q15M PRN BUCCAL DECREASED GLUCOSE; Start 10/20/18 at 16:30 IV Flush (NS 10 ml) 10 ml PRN PRN IV IV PROTOCOL; Start 10/20/18 at 16:30 Midazolam HCl 50 ml @ 1 mls/hr TITRATE IV Last administered on 11/10/18 09:21; Admin Dose 6 MLS/HR; Start 10/22/18 at 02:30 Fentanyl 1000 mcg/ Sodium Chloride 100 ml @ 2.5 mls/hr TITRATE IV Last administered on 11/10/18 02:11; Admin Dose 8 MLS/HR; Start 10/22/18 at 11:30 Docusate Sodium (Colace Liquid Cup) 100 mg BID GTB Last administered on 11/10 08:56; Admin Dose 100 MG; Start 10/22/18 at 21:00 Acetaminophen (Tylenol Tab) 650 mg Q6H PRN PO MILD PAIN(1-3)OR ELEVATED TEMP Last administered on 10/25/18 06:33; Admin Dose 650 MG; Start 10/23/18 at 20:30 Insulin Aspart (Novolog Insulin Pen) NOVOLOG *MODERATE* ALGORI... Q4 SC Last administered on 11/09/18 21:10; Admin Dose 2 UNIT; Start 10/27/18 at 21:00 Lisinopril (Zestril) 20 mg DAILY NGT Last administered on 11/10/18 08:56; Admin Dose 20 MG; Start 10/30/18 at 10:00 Famotidine (Pepcid) 20 mg Q12 GTB Last administered on 11/10/18 08:56; Admin Dose 20 MG; Start 10/31/18 at 21:00 Bisacodyl (Dulcolax Supp) 10 mg Q24H PRN [place] CONSTIPATION Last administered on 11/02/18 09:28; Admin Dose 10 MG; Start 10/31/18 at 11:30 Sodium Biphosphate/ Sodium Phosphate (Fleet Enema) 133 ml Q24H PRN [place] CONSTIPATION Last administered on 11/02/18 09:28; Admin Dose 133 ML; Start 10/31/18 at 11:30 Lorazepam (Ativan) 2 mg Q4H PRN GTB ANXIETY Last administered on 11/02/18 20:26; Admin Dose 2 MG; Start 10/31/18 at 12:00 Propofol 100 ml @ 7.909 mls/ hr Q12H IV Last administered on 11/10/18 07:43; Admin Dose 31.637 MLS/HR; Start 11/01/18 at 09:00 Acetylcysteine (Mucomyst) 3 ml Q6H RESP THERAPY PRN NEB WHEEZING AND RESP DISTRESS Last administered on 11/02/18 02:43; Admin Dose 3 ML; Start 11/01/18 at 23:00 Hydralazine HCl (Apresoline) 10 mg Q4H PRN IV ELEVATED SYSTOLIC BP Last administered on 11/08/18 03:21; Admin Dose 10 MG; Start 11/02/18 at 00:30 Acetylcysteine (Mucomyst) 1 ml Q6H RESP THERAPY NEB Last administered on 11/10/18 07:47; Admin Dose 1 ML; Start 11/02/18 at 08:00 Dexmedetomidine HCl 200 mcg/ Sodium Chloride 50 ml @ 13.18 mls/ hr TITRATE IV ; Start 11/02/18 at 10:00 Insulin Glargine (Lantus) 35 units BID@0800,2000 SC Last administered on 11/10/18 08:55; Admin Dose 35 UNITS; Start 11/05/18 at 20:00 Lactulose (Enulose) 30 gm Q6 PO Last administered on 11/10/18 05:43; Admin Dose 30 GM; Start 11/05/18 at 18:00 Dextrose/Sodium Chloride 1,000 ml @ 75 mls/hr [id number] IV Last administered on 11/09/18 11:41; Admin Dose 75 MLS/HR; Start 11/06/18 at 05:00 Senna (Senokot) 2 tab BID PO Last administered on 11/10/18 08:56; Admin Dose 2 TAB; Start 11/09/18 at 21:00 LUCIE ELIZABETH MD Nov 10, 2018 14:22
[2018-11-10] MEDS ORDERED: POTASSIUM CHLORIDE 100 ML ONE (16:09)
[2018-11-10] MEDS: POTASSIUM CHLORIDE 50 ML IVPB SCH ×2 (16:26→18:43)
[2018-11-10] MEDS: METOPROLOL 25 MG TAB PO SCH ×2 (16:30→21:52)
[2018-11-10] MEDS ORDERED: METOPROLOL 5 MG INJ IV PRN (16:30)
[2018-11-10] MEDS ORDERED: IPRATROPIUM (HFA) 12.9 GM INHALER INH PRN (17:30)
[2018-11-10] MEDS ORDERED: ALBUTEROL HFA 8 GM INHALER INH PRN (17:30)
[2018-11-10] MEDS ORDERED: METOPROLOL 5 MG INJ IV ONE (20:30)
[2018-11-10] MEDS ORDERED: LORAZEPAM 2 MG INJ IV PRN (20:30)
[2018-11-10] MEDS: ALBUTEROL/IPRATROPIUM (NEB) 3 ML AMP HHN SCH (20:57)
[2018-11-10] MEDS ORDERED: DIPHENHYDRAMINE 50 MG INJ IV ONE (23:30)
[2018-11-10] MEDS ORDERED: MAGNESIUM SULFATE 2 GM/50 ML 50 ML IVPB ONE (23:30)
[2018-11-10] MEDS: METOPROLOL 5 MG INJ IV SCH (23:40)
[2018-11-10] MEDS: POTASSIUM CHLORIDE 100 ML IVPB SCH (23:47)
[2018-11-11] VITALS (29 sets, daily range): BP systolic 121–173; BP diastolic 69–108; PULSE 88–117; RESP 13–27
[2018-11-11] MEDS: INSULIN ASPART [NOVOLOG] 3 ML PEN SC SCH ×6 (01:00→20:25)
[2018-11-11] MEDS: LORAZEPAM 2 MG INJ IV PRN ×4 (01:09→22:25)
[2018-11-11] MEDS: ALBUTEROL/IPRATROPIUM (NEB) 3 ML AMP HHN SCH ×4 (01:19→19:44)
[2018-11-11] MEDS: ACETYLCYSTEINE 20% 4 ML VIAL NEB SCH ×4 (01:19→19:44)
[2018-11-11] MEDS: POTASSIUM CHLORIDE 100 ML IVPB SCH (01:30)
[2018-11-11] MEDS: METOPROLOL 5 MG INJ IV SCH ×3 (05:02→17:53)
[2018-11-11] MEDS ORDERED: ACETAMINOPHEN 650 MG SUPP PR PRN (06:30)
[2018-11-11] MEDS: ENOXAPARIN 60 MG/0.6 ML SYG SC SCH (08:35)
[2018-11-11] MEDS: INSULIN GLARGINE [LANTus] (100 UNITS/ML) SYG SC SCH ×2 (08:35→20:24)
[2018-11-11] MEDS: NYSTATIN 30 GM POWDER BTL TOP SCH ×2 (08:43→20:25)
--- NOTE | 2018-11-11 08:56 | CONS ---
Assessment/Plan Assessment/Plan Assessment/Plan (Daily) Chest x-ray from today showing increasing pulmonary vascular congestion. ABG showing improvement in PCO2 with persistent hypoxemia on 50% Ventimask. Assessment and recommendations; 1. Patient admitted with respiratory failure due to underlying severe CHF with massive generalized edema with significant overall clinical improvement. However chest x-ray from today showing worsening pulmonary edema with persistent hypoxemia. 2. History of diabetes and hypertension. 3. History of sleep apnea with chronic type II respiratory failure. 4. Obesity/hypoventilation syndrome. Continue current supportive care. Resume Lasix 40 mg IV every 12 hours. Continue BiPAP with Vapotherm intermittently. Prognosis is still guarded. Would recommend keeping the patient in ICU. Patient's family refused tracheostomy. Consultation Date/Type/Reason Admit Date/Time Oct 17, 2018 at 14:17 Initial Consult Date 10/18/18 Type of Consult Pulmonary/critical care Patient is a 52-year-old male who was brought into the hospital because of shortness of breath. Patient was in respiratory failure and required intubation. ABG was done which showed severe hypercapnia. By the time I saw the patient, patient is orally intubated and sedated. History was obtained from medical record as well as from patient's sister who was present in the room. Past medical history; 1. Chronic renal insufficiency. 2. Morbid obesity. Likely underlying sleep apnea syndrome. 3. Diabetes. 4. Hypertension. Medications; reviewed. Patient is currently on insulin drip at 7 units/h, propofol 20 mics per kilogram per minute. Other medications were reviewed as well. Allergies; none. Social history; positive for alcohol abuse and smoking. Family history; he is single, has 3 children. Patient is with his sisters who take care of him. Occupational history; patient is on medical leave. Review of system; unable to be obtained. General exam; middle-aged male, morbidly obese, orally intubated, sedated, currently in no distress. Date/Time of Note DATE: 11/11/18 TIME: 08:53 24 HR Interval Summary Free Text/Dictation Patient's condition is tenuous at best. Was extubated yesterday afternoon. Patient required BiPAP and also developed an episode of SVT. Currently the patient is on Ventimask and is awake and appropriately responsive. Patient does not appear to be in any significant distress. General exam; middle-aged male, morbidly obese, awake and alert. Currently in no distress. Exam/Review of Systems Exam Vitals Vital Signs Date Temp Pulse Resp B/P (MAP) Pulse Ox O2 O2 Flow FiO2 Time Delivery Rate 11/11/18 23 92 50 08:18 11/11/18 90 163/105 BIPAP 06:00 (124) 11/11/18 99.7 04:00 11/10/18 15.0 15:20 Intake and Output 11/10/18 11/10/18 11/11/18 1515:00 23:00 07:00 IntakeIntake Total 497.911 ml 250 ml 650 ml OutputOutput Total 660 ml 775 ml 680 ml BalanceBalance -162.089 ml -525 ml -30 ml Exam H HEENT exam; supple neck, JVD difficult to see because of short neck. Patient has fair dentition. No neck masses. Pupils are small bilaterally. Chest exam; diminished breath sounds bilaterally. S1-S2 audible, no murmurs. Regular rhythm. Abdomen exam; soft, protuberant. Nontender. Organomegaly difficult to assess. Bowel sounds audible. Extremity exam; no peripheral edema. Patient does have chronic lower extremity skin changes. BRIM PRESSER exam; no focal motor deficit. Results Result Diagram: 11/11/18 0400 11/11/18 0400 Results 24hrs Laboratory Tests Test 11/10/18 13:18 11/10/18 14:30 11/10/18 14:38 11/10/18 17:00 Bedside Glucose 82 96 Blood Gas Blood arterial Specimen Source Arterial Blood 11/10/2018 2:15:28 Date Drawn PM Arterial Blood 7.385 pH (Temp corrected) Arterial Blood 61.3 H pCO2 (Temp correct) Arterial Blood 59.5 L pO2 (Temp corrected) Arterial Blood 35.9 H HCO3 Arterial Blood 8.3 H Base Excess Arterial Blood 90.0 L Oxygen Saturatio n Danilo Test ACCEPTAB Arterial Blood Left Radial Gas Puncture Site Arterial 1.1 Blood Carboxyhem oglobin Arterial Blood 0.2 Methemoglobin Blood Gas A-a O2 191.6 H Differential Oxyhemoglobin 88.8 L Percent Blood Gas 37.0 Temperature Blood Gas VENT - AC Modality FiO2 45.0 Blood Gas Low 5.0 PEEP Setting Blood Gas 10 Pressure Support Blood Gas TM Notified Whom Blood Gas 11/10/2018 2:23:59 Notified Time PM Sodium Level 137 Potassium Level 3.4 L Chloride Level 96 L Carbon Dioxide 35 H Level Anion Gap 6 Blood Urea 23 H Nitrogen Creatinine 0.44 L Est Glomerular > 60 Filtrat Rate mL/min Glucose Level 97 Calcium Level 8.9 Magnesium Level 2.0 Test 11/10/18 20:24 11/10/18 21:00 11/10/18 23:07 11/11/18 01:10 Bedside Glucose 108 114 Sodium Level 140 Potassium Level 3.7 Chloride Level 99 Carbon Dioxide 38 H Level Anion Gap 3 L Blood Urea 19 Nitrogen Creatinine 0.47 L Est Glomerular > 60 Filtrat Rate mL/min Glucose Level 113 Calcium Level 8.7 Phosphorus Level 3.3 Magnesium Level 1.8 Blood Gas Blood arterial Specimen Source Arterial Blood 11/10/2018 11:40:2 Date Drawn 4 PM Arterial Blood 7.436 pH (Temp corrected) Arterial Blood 56.7 H pCO2 (Temp correct) Arterial Blood 78.8 L pO2 (Temp corrected) Arterial Blood 37.3 H HCO3 Arterial Blood 10.7 H Base Excess Arterial Blood 95.6 Oxygen Saturatio n Danilo Test ACCEPTAB Arterial Blood Right Radial Gas Puncture Site Arterial 0.9 Blood Carboxyhem oglobin Arterial Blood 0.3 Methemoglobin Blood Gas A-a O2 213.9 H Differential Oxyhemoglobin 94.5 Percent Blood Gas 37.0 Temperature Blood Gas 16.0 Respiration Rate Blood Gas Actual 21 Respiration Rate Blood Gas MASK - BIPAP Modality FiO2 50.0 Blood Gas 20/8 IPAP/EPAP Ratio Blood Gas MR Notified Whom Blood Gas 11/10/2018 11:47:1 Notified Time 3 PM Test 11/11/18 04:00 11/11/18 04:56 11/11/18 07:00 11/11/18 08:44 White Blood 13.1 H Count Red Blood Count 5.23 Hemoglobin 14.0 Hematocrit 45.3 Mean Corpuscular 86.6 Volume Mean Corpuscular 26.8 L Hemoglobin Mean Corpuscular 30.9 L Hemoglobin Danni nt Red Cell 19.4 H Distribution Width Platelet Count 307 Mean Platelet 11.7 H Volume Immature 1.500 H Granulocytes % Neutrophils % 67.0 Lymphocytes % 16.3 Monocytes % 13.5 H Eosinophils % 1.1 Basophils % 0.6 Nucleated Red 0.0 Blood Cells % Immature 0.190 H Granulocytes # Neutrophils # 8.8 H Lymphocytes # 2.1 Monocytes # 1.8 H Eosinophils # 0.1 Basophils # 0.1 Nucleated Red 0.0 Blood Cells # Sodium Level 139 Potassium Level 3.9 Chloride Level 100 Carbon Dioxide 38 H Level Anion Gap 1 L Blood Urea 16 Nitrogen Creatinine 0.42 L Est Glomerular > 60 Filtrat Rate mL/min Glucose Level 121 Calcium Level 8.7 Magnesium Level 2.1 Bedside Glucose 122 131 Blood Gas Blood arterial Specimen Source Arterial Blood 11/11/2018 7:34:27 Date Drawn AM Arterial Blood 7.438 pH (Temp corrected) Arterial Blood 46.5 H pCO2 (Temp correct) Arterial Blood 64.6 L pO2 (Temp corrected) Arterial Blood 30.7 H HCO3 Arterial Blood 5.6 H Base Excess Arterial Blood 92.6 L Oxygen Saturatio n Danilo Test ACCEPTAB Arterial Blood Left Radial Gas Puncture Site Arterial 1.0 Blood Carboxyhem oglobin Arterial Blood 0.3 Methemoglobin Blood Gas A-a O2 239.6 H Differential Oxyhemoglobin 91.4 L Percent Blood Gas 37.0 Temperature Blood Gas MASK - VENTI Modality FiO2 50.0 Blood Gas TM Notified Whom Blood Gas 11/11/2018 8:03:03 Notified Time AM Medications Medication Current Medications IV Flush (NS 3 ml) 3 ml PER PROTOCOL IV ; Start 10/17/18 at 15:30 Hydromorphone HCl (Dilaudid) 0.5 mg Q4H PRN IV SEVERE PAIN LEVEL 7-10 Last administered on 11/01/18 01:27; Admin Dose 0.5 MG; Start 10/17/18 at 15:30 Furosemide (Lasix) 40 mg BID DIURETICS IV Last administered on 11/06/18 05:39; Admin Dose 40 MG; Start 10/19/18 at 10:30; Status Hold Nystatin (Nystatin Powder) 1 applic BID TOP Last administered on 11/11/18 08:43; Admin Dose 1 APPLIC; Start 10/19/18 at 21:00 Enoxaparin Sodium (Lovenox) 60 mg DAILY SC Last administered on 11/11/18 08:35; Admin Dose 60 MG; Start 10/21/18 at 09:00 Diagnostic Test (Pha) (Accu-Chek) 1 ea 02 XX Last administered on 11/09/18 02:09; Admin Dose 1 EA; Start 10/21/18 at 02:00 Miscellaneous Information 1 ea NOTE XX ; Start 10/20/18 at 16:30 Glucose (Glutose) 15 gm Q15M PRN PO DECREASED GLUCOSE; Start 10/20/18 at 16:30 Glucose (Glutose) 22.5 gm Q15M PRN PO DECREASED GLUCOSE; Start 10/20/18 at 16:30 Dextrose (D50w Syringe) 25 ml Q15M PRN IV DECREASED GLUCOSE; Start 10/20/18 at 16:30 Dextrose (D50w Syringe) 50 ml Q15M PRN IV DECREASED GLUCOSE; Start 10/20/18 at 16:30 Glucagon (Glucagen) 1 mg Q15M PRN IM DECREASED GLUCOSE; Start 10/20/18 at 16:30 Glucose (Glutose) 15 gm Q15M PRN BUCCAL DECREASED GLUCOSE; Start 10/20/18 at 16:30 IV Flush (NS 10 ml) 10 ml PRN PRN IV IV PROTOCOL; Start 10/20/18 at 16:30 Docusate Sodium (Colace Liquid Cup) 100 mg BID GTB Last administered on 11/10/18at 08:56; Admin Dose 100 MG; Start 10/22/18 at 21:00 Acetaminophen (Tylenol Tab) 650 mg Q6H PRN PO MILD PAIN(1-3)OR ELEVATED TEMP Last administered on 10/25/18at 06:33; Admin Dose 650 MG; Start 10/23/18 at 20:30 Insulin Aspart (Novolog Insulin Pen) NOVOLOG *MODERATE* ALGORI... Q4 SC Last administered on 11/09/18at 21:10; Admin Dose 2 UNIT; Start 10/27/18 at 21:00 Lisinopril (Zestril) 20 mg DAILY NGT Last administered on 11/10/18 08:56; Admin Dose 20 MG; Start 10/30/18 at 10:00 Famotidine (Pepcid) 20 mg Q12 GTB Last administered on 11/10/18 08:56; Admin Dose 20 MG; Start 10/31/18 at 21:00 Bisacodyl (Dulcolax Supp) 10 mg Q24H PRN LA CONSTIPATION Last administered on 11/02/18at 09:28; Admin Dose 10 MG; Start 10/31/18 at 11:30 Sodium Biphosphate/ Sodium Phosphate (Fleet Enema) 133 ml Q24H PRN LA CONSTIPATION Last administered on 11/02/18 09:28; Admin Dose 133 ML; Start 10/31/18 at 11:30 Lorazepam (Ativan) 2 mg Q4H PRN GTB ANXIETY Last administered on 11/02/18 20:26; Admin Dose 2 MG; Start 10/31/18 at 12:00 Acetylcysteine (Mucomyst) 3 ml Q6H RESP THERAPY PRN NEB WHEEZING AND RESP DISTRESS Last administered on 11/02/18 02:43; Admin Dose 3 ML; Start 11/01/18 at 23:00 Hydralazine HCl (Apresoline) 10 mg Q4H PRN IV ELEVATED SYSTOLIC BP Last administered on 11/08/18 03:21; Admin Dose 10 MG; Start 11/02/18 at 00:30 Acetylcysteine (Mucomyst) 1 ml Q6H RESP THERAPY NEB Last administered on 11/11/18 08:18; Admin Dose 1 ML; Start 11/02/18 at 08:00 Insulin Glargine (Lantus) 35 units BID@0800,2000 SC Last administered on 11/11/18 08:35; Admin Dose 35 UNITS; Start 11/05/18 at 20:00 Lactulose (Enulose) 30 gm Q6 PO Last administered on 11/10/18 05:43; Admin Dose 30 GM; Start 11/05/18 at 18:00 Senna (Senokot) 2 tab BID PO Last administered on 11/10/18 08:56; Admin Dose 2 TAB; Start 11/09/18 at 21:00 Metoprolol Tartrate (Lopressor) 25 mg BID PO ; Start 11/10/18 at 16:30 Metoprolol Tartrate (Lopressor) 5 mg Q6H PRN IV SVT Last administered on 11/10/18 18:44; Admin Dose 5 MG; Start 11/10/18 at 16:30 Albuterol (Ventolin Hfa) 4 puff Q6H RESP THERAPY PRN INH SHORTNESS OF BREATH; Start 11/10/18 at 17:30 Ipratropium [place] (Atrovent Hfa) 4 puff Q6H RESP THERAPY PRN INH SHORTNESS OF BREATH; Start 11/10/18 at 17:30 Dextrose/Sodium Chloride 1,000 ml @ 50 mls/hr Q20H IV Last administered on 11/10/18at 20:52; Admin Dose 50 MLS/HR; Start 11/10/18 at 19:30 Albuterol/ Ipratropium (Duoneb) 3 ml Q6H RESP THERAPY HHN Last administered on 11/11/18at 08:17; Admin Dose 3 ML; Start 11/10/18 at 20:30 Metoprolol Tartrate (Lopressor) 5 mg Q6 IV Last administered on 11/11/18at 05:02; Admin Dose 5 MG; Start 11/11/18 at 00:00 Lorazepam (Ativan) 1 mg Q4 PRN IV agitation, anxiety Last administered on 11/11/18at 04:59; Admin Dose 1 MG; Start 11/11/18 at 00:30 Acetaminophen (Tylenol Supp) 650 mg Q6H PRN [place] fever; Start 11/11/18 at 06:30 Furosemide (Lasix) 40 mg BID DIURETICS IV ; Start 11/11/18 at 09:00; Status ETTA GONZALEZ Nov 11, 2018 08:56
[2018-11-11] MEDS: DOCUSATE SODIUM 10 MG/ML (10ML CUP) GTB SCH ×2 (09:00→20:24)
[2018-11-11] MEDS: SENNA TAB PO SCH ×2 (09:00→20:25)
[2018-11-11] MEDS: METOPROLOL 25 MG TAB PO SCH ×2 (09:00→14:33)
[2018-11-11] MEDS: FAMOTIDINE 20 MG TAB GTB SCH ×2 (09:00→20:25)
[2018-11-11] MEDS: LISINOPRIL 20 MG TAB NGT SCH (09:00)
[2018-11-11] MEDS: HYDROmorphONE 0.5 MG/0.5 ML SYG IV PRN ×3 (09:08→22:27)
[2018-11-11] MEDS: LACTULOSE 30ML CUP PO SCH ×2 (11:57→17:53)
[2018-11-11] MEDS: FUROSEMIDE 40 MG INJ IV SCH ×2 (12:02→17:52)
--- NOTE | 2018-11-11 12:15 | PN ---
Date/Time of Note Date/Time of Note DATE: 11/11/18 TIME: 12:14 Assessment/Plan Lines/Catheters IV Catheter Type (from Nrsg): PICC Line [place] in Place (from Nrsg): Yes Assessment/Plan Assessment/Plan Respiratory failure Patient will need tracheostomy Considering his size he would benefit from a long extra long tracheostomy tube Patient refused surgery today we will proceed with tracheostomy when the patient is agreeable Will wean for possible extubation Subjective 24 Hr Interval Summary Constitutional: improved Pain Control: mild Exam/Review of Systems Vital Signs Vitals Vital Signs Date Temp Pulse Resp B/P (MAP) Pulse Ox O2 O2 Flow FiO2 Time Delivery Rate 11/11/18 113 17 166/95 91 10:00 (118) 11/11/18 50 08:18 11/11/18 99.5 08:00 11/11/18 Venturi 07:00 Mask 11/10/18 15.0 15:20 Intake and Output 11/10/18 11/10/18 11/11/18 1515:00 23:00 07:00 IntakeIntake Total 497.911 ml 250 ml 700 ml OutputOutput Total 660 ml 775 ml 680 ml BalanceBalance -162.089 ml -525 ml 20 ml Exam ENMT: nl external ears & nose, nl lips & teeth, nl nasal mucosa & septum, mucosa pink and moist Neck: supple, non-tender Respiratory: clear to auscultation, normal air movement Cardiovascular: regular rate and rhythm, nl pulses Musculoskeletal: nl extremities to inspection, nl gait and stance Results Result Diagram: 11/11/1839911/11/18399 KARINA VALADEZ MD Nov 11, 2018 12:15
--- NOTE | 2018-11-11 14:13 | PN ---
Date/Time of Note Date/Time of Note DATE: 11/11/18 TIME: 14:06 Assessment/Plan VTE Prophylaxis Risk score (from Ns)>0 risk: 11 SCD applied (from Ns): Yes Pharmacological prophylaxis: heparin Lines/Catheters IV Catheter Type (from Nrsg): PICC Line Central line still needed: Yes Urinary Cath still in place: Yes Reason Cath still needed: urinary retention Assessment/Plan Hospital Course 52 yo male with h/o morbid obesity, OHS, DMII who presents with acute hypercapneic and hypoxic respiratory failure 2/2 pneumonia/ARDS as well as acute diastolic CHF PULM: Acute on chronic hypoxic/hypercapneic respiratory failure: Very large A-a gradient and high FiO2 requirement. Volume status now normalized, suspect continued infiltrates on CXR are 2/2 pneuomnia/ARDS - s/p extubation - O2 by HFNC as needed CV: CHF: - Lasix to euvolemia - TTE wiht normal EF ENDO: DMII: - insulin Continue ICU care PT/OT Result Diagram: 11/11/18 0400 11/11/18 0400 Results 24hrs Laboratory Tests Test 11/10/18 14:30 11/10/18 14:38 11/10/18 17:00 11/10/18 20:24 Blood Gas Blood arterial Specimen Source Arterial Blood 11/10/2018 2:15:28 Date Drawn PM Arterial Blood 7.385 pH (Temp corrected) Arterial Blood 61.3 H pCO2 (Temp correct) Arterial Blood 59.5 L pO2 (Temp corrected) Arterial Blood 35.9 H HCO3 Arterial Blood 8.3 H Base Excess Arterial Blood 90.0 L Oxygen Saturatio n Danilo Test ACCEPTAB Arterial Blood Left Radial Gas Puncture Site Arterial 1.1 Blood Carboxyhem oglobin Arterial Blood 0.2 Methemoglobin Blood Gas A-a O2 191.6 H Differential Oxyhemoglobin 88.8 L Percent Blood Gas 37.0 Temperature Blood Gas VENT - AC Modality FiO2 45.0 Blood Gas Low 5.0 PEEP Setting Blood Gas 10 Pressure Support Blood Gas TM Notified Whom Blood Gas 11/10/2018 2:23:59 Notified Time PM Sodium Level 137 Potassium Level 3.4 L Chloride Level 96 L Carbon Dioxide 35 H Level Anion Gap 6 Blood Urea 23 H Nitrogen Creatinine 0.44 L Est Glomerular > 60 Filtrat Rate mL/min Glucose Level 97 Calcium Level 8.9 Magnesium Level 2.0 Bedside Glucose 96 108 Test 11/10/18 21:00 11/10/18 23:07 11/11/18 01:10 11/11/18 04:00 Sodium Level 140 139 Potassium Level 3.7 3.9 Chloride Level 99 100 Carbon Dioxide 38 H 38 H Level Anion Gap 3 L 1 L Blood Urea 19 16 Nitrogen Creatinine 0.47 L 0.42 L Est Glomerular > 60 > 60 Filtrat Rate mL/min Glucose Level 113 121 Calcium Level 8.7 8.7 Phosphorus Level 3.3 Magnesium Level 1.8 2.1 Blood Gas Blood arterial Specimen Source Arterial Blood 11/10/2018 11:40:2 Date Drawn 4 PM Arterial Blood 7.436 pH (Temp corrected) Arterial Blood 56.7 H pCO2 (Temp correct) Arterial Blood 78.8 L pO2 (Temp corrected) Arterial Blood 37.3 H HCO3 Arterial Blood 10.7 H Base Excess Arterial Blood 95.6 Oxygen Saturatio n Danilo Test ACCEPTAB Arterial Blood Right Radial Gas Puncture Site Arterial 0.9 Blood Carboxyhem oglobin Arterial Blood 0.3 Methemoglobin Blood Gas A-a O2 213.9 H Differential Oxyhemoglobin 94.5 Percent Blood Gas 37.0 Temperature Blood Gas 16.0 Respiration Rate Blood Gas Actual 21 Respiration Rate Blood Gas MASK - BIPAP Modality FiO2 50.0 Blood Gas 20/8 IPAP/EPAP Ratio Blood Gas MR Notified Whom Blood Gas 11/10/2018 11:47:1 Notified Time 3 PM Bedside Glucose 114 White Blood 13.1 H Count Red Blood Count 5.23 Hemoglobin 14.0 Hematocrit 45.3 Mean Corpuscular 86.6 Volume Mean Corpuscular 26.8 L Hemoglobin Mean Corpuscular 30.9 L Hemoglobin Danni nt Red Cell 19.4 H Distribution Width Platelet Count 307 Mean Platelet 11.7 H Volume Immature 1.500 H Granulocytes % Neutrophils % 67.0 Lymphocytes % 16.3 Monocytes % 13.5 H Eosinophils % 1.1 Basophils % 0.6 Nucleated Red 0.0 Blood Cells % Immature 0.190 H Granulocytes # Neutrophils # 8.8 H Lymphocytes # 2.1 Monocytes # 1.8 H Eosinophils # 0.1 Basophils # 0.1 Nucleated Red 0.0 Blood Cells # Test 11/11/18 04:56 11/11/18 07:00 11/11/18 08:44 11/11/18 13:51 Bedside Glucose 122 131 107 Blood Gas Blood arterial Specimen Source Arterial Blood 11/11/2018 7:34:27 Date Drawn AM Arterial Blood 7.438 pH (Temp corrected) Arterial Blood 46.5 H pCO2 (Temp correct) Arterial Blood 64.6 L pO2 (Temp corrected) Arterial Blood 30.7 H HCO3 Arterial Blood 5.6 H Base Excess Arterial Blood 92.6 L Oxygen Saturatio n Danilo Test ACCEPTAB Arterial Blood Left Radial Gas Puncture Site Arterial 1.0 Blood Carboxyhem oglobin Arterial Blood 0.3 Methemoglobin Blood Gas A-a O2 239.6 H Differential Oxyhemoglobin 91.4 L Percent Blood Gas 37.0 Temperature Blood Gas MASK - VENTI Modality FiO2 50.0 Blood Gas TM Notified Whom Blood Gas 11/11/2018 8:03:03 Notified Time AM Subjective 24 Hr Interval Summary Free Text/Dictation Patinet is stable s/p exutbation, still requiring HFLC Saturating about 91% Stable respiratory status Exam/Review of Systems Exam Vitals Vital Signs Date Temp Pulse Resp B/P (MAP) Pulse Ox O2 O2 Flow FiO2 Time Delivery Rate 11/11/18 96 50 12:15 11/11/18 92 12:00 11/11/18 17 166/95 10:00 (118) 11/11/18 99.5 08:00 11/11/18 Venturi 07:00 Mask 11/10/18 15.0 15:20 Intake and Output 11/10/18 11/10/18 11/11/18 1414:59 22:59 06:59 IntakeIntake Total 613.548 ml 200 ml 700 ml OutputOutput Total 675 ml 760 ml 770 ml BalanceBalance -61.452 ml -560 ml -70 ml Exam Breathign comfortably Morbidly obese DIfficult to assess JVP Lungs clear Very large belly, soft nt Legs with resolved edema Results Results 24hrs Laboratory Tests Test 11/10/18 14:30 11/10/18 14:38 11/10/18 17:00 11/10/18 20:24 Blood Gas Blood arterial Specimen Source Arterial Blood 11/10/2018 2:15:28 Date Drawn PM Arterial Blood 7.385 pH (Temp corrected) Arterial Blood 61.3 H pCO2 (Temp correct) Arterial Blood 59.5 L pO2 (Temp corrected) Arterial Blood 35.9 H HCO3 Arterial Blood 8.3 H Base Excess Arterial Blood 90.0 L Oxygen Saturatio n Danilo Test ACCEPTAB Arterial Blood Left Radial Gas Puncture Site Arterial 1.1 Blood Carboxyhem oglobin Arterial Blood 0.2 Methemoglobin Blood Gas A-a O2 191.6 H Differential Oxyhemoglobin 88.8 L Percent Blood Gas 37.0 Temperature Blood Gas VENT - AC Modality FiO2 45.0 Blood Gas Low 5.0 PEEP Setting Blood Gas 10 Pressure Support Blood Gas TM Notified Whom Blood Gas 11/10/2018 2:23:59 Notified Time PM Sodium Level 137 Potassium Level 3.4 L Chloride Level 96 L Carbon Dioxide 35 H Level Anion Gap 6 Blood Urea 23 H Nitrogen Creatinine 0.44 L Est Glomerular > 60 Filtrat Rate mL/min Glucose Level 97 Calcium Level 8.9 Magnesium Level 2.0 Bedside Glucose 96 108 Test 11/10/18 21:00 11/10/18 23:07 11/11/18 01:10 11/11/18 04:00 Sodium Level 140 139 Potassium Level 3.7 3.9 Chloride Level 99 100 Carbon Dioxide 38 H 38 H Level Anion Gap 3 L 1 L Blood Urea 19 16 Nitrogen Creatinine 0.47 L 0.42 L Est Glomerular > 60 > 60 Filtrat Rate mL/min Glucose Level 113 121 Calcium Level 8.7 8.7 Phosphorus Level 3.3 Magnesium Level 1.8 2.1 Blood Gas Blood arterial Specimen Source Arterial Blood 11/10/2018 11:40:2 Date Drawn 4 PM Arterial Blood 7.436 pH (Temp corrected) Arterial Blood 56.7 H pCO2 (Temp correct) Arterial Blood 78.8 L pO2 (Temp corrected) Arterial Blood 37.3 H HCO3 Arterial Blood 10.7 H Base Excess Arterial Blood 95.6 Oxygen Saturatio n Danilo Test ACCEPTAB Arterial Blood Right Radial Gas Puncture Site Arterial 0.9 Blood Carboxyhem oglobin Arterial Blood 0.3 Methemoglobin Blood Gas A-a O2 213.9 H Differential Oxyhemoglobin 94.5 Percent Blood Gas 37.0 Temperature Blood Gas 16.0 Respiration Rate Blood Gas Actual 21 Respiration Rate Blood Gas MASK - BIPAP Modality FiO2 50.0 Blood Gas 20/8 IPAP/EPAP Ratio Blood Gas MR Notified Whom Blood Gas 11/10/2018 11:47:1 Notified Time 3 PM Bedside Glucose 114 White Blood 13.1 H Count Red Blood Count 5.23 Hemoglobin 14.0 Hematocrit 45.3 Mean Corpuscular 86.6 Volume Mean Corpuscular 26.8 L Hemoglobin Mean Corpuscular 30.9 L Hemoglobin Danni nt Red Cell 19.4 H Distribution Width Platelet Count 307 Mean Platelet 11.7 H Volume Immature 1.500 H Granulocytes % Neutrophils % 67.0 Lymphocytes % 16.3 Monocytes % 13.5 H Eosinophils % 1.1 Basophils % 0.6 Nucleated Red 0.0 Blood Cells % Immature 0.190 H Granulocytes # Neutrophils # 8.8 H Lymphocytes # 2.1 Monocytes # 1.8 H Eosinophils # 0.1 Basophils # 0.1 Nucleated Red 0.0 Blood Cells # Test 11/11/18 04:56 11/11/18 07:00 11/11/18 08:44 11/11/18 13:51 Bedside Glucose 122 131 107 Blood Gas Blood arterial Specimen Source Arterial Blood 11/11/2018 7:34:27 Date Drawn AM Arterial Blood 7.438 pH (Temp corrected) Arterial Blood 46.5 H pCO2 (Temp correct) Arterial Blood 64.6 L pO2 (Temp corrected) Arterial Blood 30.7 H HCO3 Arterial Blood 5.6 H Base Excess Arterial Blood 92.6 L Oxygen Saturatio n Danilo Test ACCEPTAB Arterial Blood Left Radial Gas Puncture Site Arterial 1.0 Blood Carboxyhem oglobin Arterial Blood 0.3 Methemoglobin Blood Gas A-a O2 239.6 H Differential Oxyhemoglobin 91.4 L Percent Blood Gas 37.0 Temperature Blood Gas MASK - VENTI Modality FiO2 50.0 Blood Gas TM Notified Whom Blood Gas 11/11/2018 8:03:03 Notified Time AM Medications Medication Current Medications IV Flush (NS 3 ml) 3 ml PER PROTOCOL IV ; Start 10/17/18 at 15:30 Hydromorphone HCl (Dilaudid) 0.5 mg Q4H PRN IV SEVERE PAIN LEVEL 7-10 Last administered on 11/11/18 09:08; Admin Dose 0.5 MG; Start 10/17/18 at 15:30 Nystatin (Nystatin Powder) 1 applic BID TOP Last administered on 11/11/18 08:43; Admin Dose 1 APPLIC; Start 10/19/18 at 21:00 Enoxaparin Sodium (Lovenox) 60 mg DAILY SC Last administered on 2/5/19at 08:35; Admin Dose 60 MG; Start 10/21/18 at 09:00 Diagnostic Test (Pha) (Accu-Chek) 1 ea 02 XX Last administered on 11/09/18at 02:09; Admin Dose 1 EA; Start 10/21/18 at 02:00 Miscellaneous Information 1 ea NOTE XX ; Start 10/20/18 at 16:30 Glucose (Glutose) 15 gm Q15M PRN PO DECREASED GLUCOSE; Start 10/20/18 at 16:30 Glucose (Glutose) 22.5 gm Q15M PRN PO DECREASED GLUCOSE; Start 10/20/18 at 16:30 Dextrose (D50w Syringe) 25 ml Q15M PRN IV DECREASED GLUCOSE; Start 10/20/18 at 16:30 Dextrose (D50w Syringe) 50 ml Q15M PRN IV DECREASED GLUCOSE; Start 10/20/18 at 16:30 Glucagon (Glucagen) 1 mg Q15M PRN IM DECREASED GLUCOSE; Start 10/20/18 at 16:30 Glucose (Glutose) 15 gm Q15M PRN BUCCAL DECREASED GLUCOSE; Start 10/20/18 at 16:30 IV Flush (NS 10 ml) 10 ml PRN PRN IV IV PROTOCOL; Start 10/20/18 at 16:30 Docusate Sodium (Colace Liquid Cup) 100 mg BID GTB Last administered on 11/10/18at 08:56; Admin Dose 100 MG; Start 10/22/18 at 21:00 Acetaminophen (Tylenol Tab) 650 mg Q6H PRN PO MILD PAIN(1-3)OR ELEVATED TEMP Last administered on 10/25/18at 06:33; Admin Dose 650 MG; Start 10/23/18 at 20:30 Insulin Aspart (Novolog Insulin Pen) NOVOLOG *MODERATE* ALGORI... Q4 SC Last administered on 11/09/18at 21:10; Admin Dose 2 UNIT; Start 10/27/18 at 21:00 Lisinopril (Zestril) 20 mg DAILY NGT Last administered on 11/10/18at 08:56; Admin Dose 20 MG; Start 10/30/18 at 10:00 Famotidine (Pepcid) 20 mg Q12 GTB Last administered on 11/10/18at 08:56; Admin Dose 20 MG; Start 10/31/18 at 21:00 Bisacodyl (Dulcolax Supp) 10 mg Q24H PRN [place] CONSTIPATION Last administered on 11/02/18 09:28; Admin Dose 10 MG; Start 10/31/18 at 11:30 Sodium Biphosphate/ Sodium Phosphate (Fleet Enema) 133 ml Q24H PRN [place] CONSTIPATION Last administered on 11/02/18 09:28; Admin Dose 133 ML; Start 10/31/18 at 11:30 Acetylcysteine (Mucomyst) 3 ml Q6H RESP THERAPY PRN NEB WHEEZING AND RESP DIS TRESS Last administered on 11/02/18 02:43; Admin Dose 3 ML; Start 11/01/18 at 23:00 Hydralazine HCl (Apresoline) 10 mg Q4H PRN IV ELEVATED SYSTOLIC BP Last administered on 11/08/18 03:21; Admin Dose 10 MG; Start 11/02/18 at 00:30 Acetylcysteine (Mucomyst) 1 ml Q6H RESP THERAPY NEB Last administered on 11/11/18 08:18; Admin Dose 1 ML; Start 11/02/18 at 08:00 Insulin Glargine (Lantus) 35 units BID@0800,2000 SC Last administered on 11/11/18 08:35; Admin Dose 35 UNITS; Start 11/05/18 at 20:00 Lactulose (Enulose) 30 gm Q6 PO Last administered on 11/10/18 05:43; Admin Dose 30 GM; Start 11/05/18 at 18:00 Senna (Senokot) 2 tab BID PO Last administered on 11/10/18 08:56; Admin Dose 2 TAB; Start 11/09/18 at 21:00 Metoprolol Tartrate (Lopressor) 25 mg BID PO ; Start 11/10/18 at 16:30 Metoprolol Tartrate (Lopressor) 5 mg Q6H PRN IV SVT Last administered on 11/10/18 18:44; Admin Dose 5 MG; Start 11/10/18 at 16:30 Albuterol (Ventolin Hfa) 4 puff Q6H RESP THERAPY PRN INH SHORTNESS OF BREATH; Start 11/10/18 at 17:30 Ipratropium [place] (Atrovent Hfa) 4 puff Q6H RESP THERAPY PRN INH SHORTNESS OF BREATH; Start 11/10/18 at 17:30 Dextrose/Sodium Chloride 1,000 ml @ 50 mls/hr Q20H IV Last administered on 11/10/18 20:52; Admin Dose 50 MLS/HR; Start 11/10/18 at 19:30 Albuterol/ Ipratropium (Duoneb) 3 ml Q6H RESP THERAPY HHN Last administered on 11/11/18 08:17; Admin Dose 3 ML; Start 11/10/18 at 20:30 Metoprolol Tartrate (Lopressor) 5 mg Q6 IV Last administered on 11/11/18 11:45; Admin Dose 5 MG; Start 11/11/18 at 00:00 Lorazepam (Ativan) 1 mg Q4 PRN IV agitation, anxiety Last administered on 11/11/18 04:59; Admin Dose 1 MG; Start 11/11/18 at 00:30 Acetaminophen (Tylenol Supp) 650 mg Q6H PRN [place] fever; Start 11/11/18 at 06:30 Furosemide (Lasix) 40 mg BID DIURETICS IV Last administered on 11/11/18at 12:02; Admin Dose 40 MG; Start 11/11/18 at 09:00 LUCIE ELIZABETH MD Nov 11, 2018 14:13
[2018-11-11] MEDS: DEXTROSE 5%-0.45% NACL 1,000 ML IV SCH ×2 (15:30→19:24)
[2018-11-12] VITALS (28 sets, daily range): BP systolic 108–179; BP diastolic 69–98; PULSE 81–123; RESP 14–26
[2018-11-12] MEDS: INSULIN ASPART [NOVOLOG] 3 ML PEN SC SCH ×6 (00:47→20:31)
[2018-11-12] MEDS: METOPROLOL 5 MG INJ IV SCH ×4 (00:47→18:43)
[2018-11-12] MEDS: ACETYLCYSTEINE 20% 4 ML VIAL NEB SCH ×4 (01:16→20:01)
[2018-11-12] MEDS: ALBUTEROL/IPRATROPIUM (NEB) 3 ML AMP HHN SCH ×4 (01:16→20:01)
[2018-11-12] MEDS: ACCU-CHEK XX SCH (01:19)
[2018-11-12] MEDS: LACTULOSE 30ML CUP PO SCH ×4 (05:31→18:00)
[2018-11-12] MEDS: FUROSEMIDE 40 MG INJ IV SCH ×2 (05:33→18:43)
[2018-11-12] MEDS: DOCUSATE SODIUM 10 MG/ML (10ML CUP) GTB SCH (08:42)
[2018-11-12] MEDS: SENNA TAB PO SCH ×2 (08:43→20:05)
[2018-11-12] MEDS: METOPROLOL 25 MG TAB PO SCH ×2 (08:43→20:31)
[2018-11-12] MEDS: FAMOTIDINE 20 MG TAB GTB SCH ×2 (08:43→20:31)
[2018-11-12] MEDS: LISINOPRIL 20 MG TAB NGT SCH (08:43)
[2018-11-12] MEDS: INSULIN GLARGINE [LANTus] (100 UNITS/ML) SYG SC SCH ×2 (08:56→20:33)
[2018-11-12] MEDS: ENOXAPARIN 60 MG/0.6 ML SYG SC SCH (08:57)
[2018-11-12] MEDS: NYSTATIN 30 GM POWDER BTL TOP SCH ×2 (09:04→20:31)
--- NOTE | 2018-11-12 09:12 | CONS ---
Consult Date/Type/Reason Admit Date/Time Oct 17, 2018 at 14:17 Initial Consult Date 10/18/18 Type of Consult Pulmonary Date/Time of Note DATE: 11/12/18 TIME: 09:09 Subjective Remains stable on high flow O2 post extubation. Awake alert mild confusion. Objective Vital Signs Date Temp Pulse Resp B/P (MAP) Pulse Ox O2 O2 Flow FiO2 Time Delivery Rate 11/12/18 93 20 120/78 92 High Flow 07:00 (92) 11/12/18 60 04:40 11/12/18 99.1 04:00 11/11/18 15.0 17:45 Intake and Output 11/11/18 11/11/18 11/12/18 1515:00 23:00 07:00 IntakeIntake Total 200 ml 225 ml 350 ml OutputOutput Total 2650 ml 3775 ml 450 ml BalanceBalance -2450 ml -3550 ml -100 ml Exam GENERAL: Obese gentleman comfortable on high flow O2 VITAL SIGNS: per chart NECK: Supple. No JVD or lymphadenopathy. CARDIAC EXAM: S1, S2. No added sounds or murmurs. CHEST: Diminished air entry bilaterally ABDOMEN: Soft, nontender. No guarding or rebound. EXTREMITIES: No cyanosis, clubbing NEUROLOGIC: Generalized weakness. Vent Setting Ventilator Support Mode: CPAP Fraction of Inspired Oxygen pe: 60 Positive End Expiratory Pressu: 5.0 Results/Medications Result Diagram: 11/12/18 0400 11/12/18 0400 Results 24 hrs Laboratory Tests Test 11/11/18 13:51 11/11/18 17:50 11/11/18 20:23 11/12/18 00:46 Bedside Glucose 107 112 120 118 Test 11/12/18 04:00 11/12/18 05:32 11/12/18 08:00 11/12/18 08:53 White Blood Count 11.9 H Red Blood Count 5.25 Hemoglobin 14.2 Hematocrit 44.6 Mean Corpuscular 85.0 Volume Mean Corpuscular 27.0 L Hemoglobin Mean Corpuscular 31.8 L Hemoglobin Concent Red Cell 19.3 H Distribution Width Platelet Count 282 Mean Platelet 11.4 H Volume Immature 1.100 H Granulocytes % Neutrophils % 64.2 Lymphocytes % 19.3 Monocytes % 13.3 H Eosinophils % 1.8 Basophils % 0.3 Nucleated Red 0.0 Blood Cells % Immature 0.130 H Granulocytes # Neutrophils # 7.7 H Lymphocytes # 2.3 Monocytes # 1.6 H Eosinophils # 0.2 Basophils # 0.0 Nucleated Red 0.0 Blood Cells # Sodium Level 138 Potassium Level 3.2 L Chloride Level 96 L Carbon Dioxide 40 H Level Anion Gap 2 L Blood Urea 11 Nitrogen Creatinine 0.43 L Est Glomerular > 60 Filtrat Rate mL/min Glucose Level 118 Calcium Level 8.7 Total Bilirubin 1.5 H Direct Bilirubin 0.00 Indirect Bilirubin 1.5 H Aspartate Amino 21 Transf (AST/SGOT) Alanine 22 Aminotransferase ( ALT/SGPT) Alkaline 77 Phosphatase Total Protein 6.3 Albumin 3.2 L Globulin 3.10 Albumin/Globulin 1.03 Ratio Bedside Glucose 124 130 Blood Gas Specimen Blood arterial Source Arterial Blood 11/12/2018 8:25:23 Date Drawn AM Arterial Blood pH 7.478 H (Temp corrected) Arterial Blood 51.5 H pCO2 (Temp correct) Arterial Blood pO2 55.8 L (Temp corrected) Arterial Blood 37.3 H HCO3 Arterial Blood 11.7 H Base Excess Arterial Blood 89.6 L Oxygen Saturation Danilo Test ACCEPTAB Arterial Blood Gas Left Radial Puncture Site Arterial 1.6 Blood Carboxyhemog lobin Arterial Blood 0.3 Methemoglobin Blood Gas A-a O2 242.8 H Differential Oxyhemoglobin 87.9 L Percent Blood Gas 37.0 Temperature Blood Gas Modality HFNC FiO2 50.0 Blood Gas Notified TM Whom Blood Gas Notified 11/12/2018 8:32:54 Time AM Medications Current Medications IV Flush (NS 3 ml) 3 ml PER PROTOCOL IV ; Start 10/17/18 at 15:30 Hydromorphone HCl (Dilaudid) 0.5 mg Q4H PRN IV SEVERE PAIN LEVEL 7-10 Last administered on 11/11/18at 22:27; Admin Dose 0.5 MG; Start 10/17/18 at 15:30 Nystatin (Nystatin Powder) 1 applic BID TOP Last administered on 11/12/18at 09:04; Admin Dose 1 APPLIC; Start 10/19/18 at 21:00 Enoxaparin Sodium (Lovenox) 60 mg DAILY SC Last administered on 11/12/18at 08:57; Admin Dose 60 MG; Start 10/21/18 at 09:00 Diagnostic Test (Pha) (Accu-Chek) 1 ea 02 XX Last administered on 11/09/18at 02:09; Admin Dose 1 EA; Start 10/21/18 at 02:00 Miscellaneous Information 1 ea NOTE XX ; Start 10/20/18 at 16:30 Glucose (Glutose) 15 gm Q15M PRN PO DECREASED GLUCOSE; Start 10/20/18 at 16:30 Glucose (Glutose) 22.5 gm Q15M PRN PO DECREASED GLUCOSE; Start 10/20/18 at 16:30 Dextrose (D50w Syringe) 25 ml Q15M PRN IV DECREASED GLUCOSE; Start 10/20/18 at 16:30 Dextrose (D50w Syringe) 50 ml Q15M PRN IV DECREASED GLUCOSE; Start 10/20/18 at 16:30 Glucagon (Glucagen) 1 mg Q15M PRN IM DECREASED GLUCOSE; Start 10/20/18 at 16:30 Glucose (Glutose) 15 gm Q15M PRN BUCCAL DECREASED GLUCOSE; Start 10/20/18 at 16:30 IV Flush (NS 10 ml) 10 ml PRN PRN IV IV PROTOCOL; Start 10/20/18 at 16:30 Docusate Sodium (Colace Liquid Cup) 100 mg BID GTB Last administered on 11/10/18 08:56; Admin Dose 100 MG; Start 10/22/18 at 21:00 Acetaminophen (Tylenol Tab) 650 mg Q6H PRN PO MILD PAIN(1-3)OR ELEVATED TEMP Last administered on 10/25/18at 06:33; Admin Dose 650 MG; Start 10/23/18 at 20:30 Insulin Aspart (Novolog Insulin Pen) NOVOLOG *MODERATE* ALGORI... Q4 SC Last administered on 11/09/18at 21:10; Admin Dose 2 UNIT; Start 10/27/18 at 21:00 Lisinopril (Zestril) 20 mg DAILY NGT Last administered on 11/10/18 08:56; Admin Dose 20 MG; Start 10/30/18 at 10:00 Famotidine (Pepcid) 20 mg Q12 GTB Last administered on 11/10/18 08:56; Admin Dose 20 MG; Start 10/31/18 at 21:00 Bisacodyl (Dulcolax Supp) 10 mg Q24H PRN [place]STIPATION Last administered on 11/02/18at 09:28; Admin Dose 10 MG; Start 10/31/18 at 11:30 Sodium Biphosphate/ Sodium Phosphate (Fleet Enema) 133 ml Q24H PRN [place] Last administered on 11/02/18 09:28; Admin Dose 133 ML; Start 10/31/18 at 11:30 Acetylcysteine (Mucomyst) 3 ml Q6H RESP THERAPY PRN NEB WHEEZING AND RESP DISTRESS Last administered on 11/02/18 02:43; Admin Dose 3 ML; Start 11/01/18 at 23:00 Hydralazine HCl (Apresoline) 10 mg Q4H PRN IV ELEVATED SYSTOLIC BP Last administered on 11/08/18 03:21; Admin Dose 10 MG; Start 11/02/18 at 00:30 Acetylcysteine (Mucomyst) 1 ml Q6H RESP THERAPY NEB Last administered on 11/12/18 08:45; Admin Dose 1 ML; Start 11/02/18 at 08:00 Insulin Glargine (Lantus) 35 units BID@0800,2000 SC Last administered on 08:56; Admin Dose 35 UNITS; Start 11/05/18 at 20:00 Lactulose (Enulose) 30 gm Q6 PO Last administered on 11/10/18 05:43; Admin Dose 30 GM; Start 11/05/18 at 18:00 Senna (Senokot) 2 tab BID PO Last administered on 11/10/18 08:56; Admin Dose 2 TAB; Start 11/09/18 at 21:00 Metoprolol Tartrate (Lopressor) 25 mg BID PO Last administered on 11/11/18 14:33; Admin Dose 25 MG; Start 11/10/18 at 16:30 Metoprolol Tartrate (Lopressor) 5 mg Q6H PRN IV SVT Last administered on 11/10/18 18:44; Admin Dose 5 MG; Start 11/10/18 at 16:30 Albuterol (Ventolin Hfa) 4 puff Q6H RESP THERAPY PRN INH SHORTNESS OF BREATH; Start 11/10/18 at 17:30 Ipratropium [place] (Atrovent Hfa) 4 puff Q6H RESP THERAPY PRN INH SHORTNESS OF BREATH; Start 11/10/18 at 17:30 Dextrose/Sodium Chloride 1,000 ml @ 50 mls/hr Q20H IV Last administered on 11/11/18 19:24; Admin Dose 50 MLS/HR; Start 11/10/18 at 19:30 Albuterol/ Ipratropium (Duoneb) 3 ml Q6H RESP THERAPY HHN Last administered on 11/12/18 08:44; Admin Dose 3 ML; Start 11/10/18 at 20:30 Metoprolol Tartrate (Lopressor) 5 mg Q6 IV Last administered on 11/12/18 05:34; Admin Dose 5 MG; Start 11/11/18 at 00:00 Lorazepam (Ativan) 1 mg Q4 PRN IV agitation, anxiety Last administered on 11/11/18 22:25; Admin Dose 1 MG; Start 11/11/18 at 00:30 Acetaminophen (Tylenol Supp) 650 mg Q6H PRN [place] fever; Start 11/11/18 at 06:30 Furosemide (Lasix) 40 mg BID DIURETICS IV Last administered on 11/12/18 05:33; Admin Dose 40 MG; Start 11/11/18 at 09:00 Assessment/Plan Hospital Course (Demo Recall) Assessment 1. Status post acute on chronic hypoxemic respiratory failure 2. Likely obesity hypoventilation syndrome with chronic hypercapnia 3. Status post congestive cardiac failure ongoing significant pulmonary edema 4. History of diabetes mellitus Plan 1. Aspiration precautions speech therapy recommendations 2. Continue diuretics if tolerated 3. Physical therapy encourage out of bed 4. Continue DVT GI prophylaxis 5. Decrease O2 as tolerated and for O2 sat of 88%, nocturnal bilevel ventilation. Critical care time 40 minutes RENATO JAVIER MD, [facility] Nov 12, 2018 09:12
--- NOTE | 2018-11-12 12:28 | PN ---
Date/Time of Note Date/Time of Note DATE: 11/12/18 TIME: 12:27 Assessment/Plan Lines/Catheters IV Catheter Type (from Nrsg): Peripheral IV [place] in Place (from Nrsg): Yes Assessment/Plan Assessment/Plan Respiratory failure Patient extubated Will monitor respiratory status Subjective 24 Hr Interval Summary Constitutional: improved Pain Control: mild Exam/Review of Systems Vital Signs Vitals Vital Signs Date Temp Pulse Resp B/P (MAP) Pulse Ox O2 O2 Flow FiO2 Time Delivery Rate 11/12/18 102 11:42 11/12/18 95 60 09:20 11/12/18 23 123/91 High Flow 09:00 (102) 11/12/18 98.9 08:00 11/11/18 15.0 17:45 Intake and Output 11/11/18 11/11/18 11/12/18 1515:00 23:00 07:00 IntakeIntake Total 200 ml 225 ml 350 ml OutputOutput Total 2650 ml 3775 ml 700 ml BalanceBalance -2450 ml -3550 ml -350 ml Exam Eyes: nl conjunctiva, EOMI, nl lids, nl sclera ENMT: nl external ears & nose, nl lips & teeth, nl nasal mucosa & septum, mucosa pink and moist Neck: supple, non-tender Respiratory: clear to auscultation, normal air movement Cardiovascular: regular rate and rhythm, nl pulses Gastrointestinal: soft, nl liver, spleen, non-tender Musculoskeletal: nl extremities to inspection, nl gait and stance Results Result Diagram: 11/12/18 0400 11/12/18 040 KARINA VALADEZ MD Nov 12, 2018 12:28
--- NOTE | 2018-11-12 15:41 | PN ---
Date/Time of Note Date/Time of Note DATE: 11/12/18 TIME: 15:39 Assessment/Plan VTE Prophylaxis Risk score (from Ns)>0 risk: 10 SCD applied (from Ns): No SCD contraindicated: low risk/ambulating Pharmacological prophylaxis: heparin Lines/Catheters IV Catheter Type (from Nrsg): Peripheral IV Urinary Cath still in place: Yes Reason Cath still needed: urinary retention Assessment/Plan Hospital Course 52 yo male with h/o morbid obesity, OHS, DMII who presents with acute hypercapneic and hypoxic respiratory failure 2/2 pneumonia/ARDS as well as acute diastolic CHF PULM: Acute on chronic hypoxic/hypercapneic respiratory failure: - Continue diuretics. Very difficult to assess central volume status but given no evidence of pneumonia will presume infiltrates on CXR are pulmonary edema - HFNC o2 as needed - Nocturnal bipap for hypercapnea - Hold sedatives Acute encephelopathy: - Likely delirium from sedation, hopstialization etc. Continue to monitor CV: CHF: - Lasix to euvolemia - TTE wiht normal EF ENDO: DMII: - insulin Continue ICU care PT/OT Result Diagram: 11/12/18 0400 11/12/18 0400 Results 24hrs Laboratory Tests Test 11/11/18 17:50 11/11/18 20:23 11/12/18 00:46 11/12/18 04:00 Bedside Glucose 112 120 118 White Blood Count 11.9 H Red Blood Count 5.25 Hemoglobin 14.2 Hematocrit 44.6 Mean Corpuscular 85.0 Volume Mean Corpuscular 27.0 L Hemoglobin Mean Corpuscular 31.8 L Hemoglobin Concent Red Cell 19.3 H Distribution Width Platelet Count 282 Mean Platelet 11.4 H Volume Immature 1.100 H Granulocytes % Neutrophils % 64.2 Lymphocytes % 19.3 Monocytes % 13.3 H Eosinophils % 1.8 Basophils % 0.3 Nucleated Red 0.0 Blood Cells % Immature 0.130 H Granulocytes # Neutrophils # 7.7 H Lymphocytes # 2.3 Monocytes # 1.6 H Eosinophils # 0.2 Basophils # 0.0 Nucleated Red 0.0 Blood Cells # Sodium Level 138 Potassium Level 3.2 L Chloride Level 96 L Carbon Dioxide 40 H Level Anion Gap 2 L Blood Urea 11 Nitrogen Creatinine 0.43 L Est Glomerular > 60 Filtrat Rate mL/min Glucose Level 118 Calcium Level 8.7 Total Bilirubin 1.5 H Direct Bilirubin 0.00 Indirect Bilirubin 1.5 H Aspartate Amino 21 Transf (AST/SGOT) Alanine 22 Aminotransferase ( ALT/SGPT) Alkaline 77 Phosphatase Total Protein 6.3 Albumin 3.2 L Globulin 3.10 Albumin/Globulin 1.03 Ratio Test 11/12/18 05:32 11/12/18 08:00 11/12/18 08:53 11/12/18 13:47 Bedside Glucose 124 130 132 Blood Gas Specimen Blood arterial Source Arterial Blood 11/12/2018 8:25:23 Date Drawn AM Arterial Blood pH 7.478 H (Temp corrected) Arterial Blood 51.5 H pCO2 (Temp correct) Arterial Blood pO2 55.8 L (Temp corrected) Arterial Blood 37.3 H HCO3 Arterial Blood 11.7 H Base Excess Arterial Blood 89.6 L Oxygen Saturation Danilo Test ACCEPTAB Arterial Blood Gas Left Radial Puncture Site Arterial 1.6 Blood Carboxyhemog lobin Arterial Blood 0.3 Methemoglobin Blood Gas A-a O2 242.8 H Differential Oxyhemoglobin 87.9 L Percent Blood Gas 37.0 Temperature Blood Gas Modality HFNC FiO2 50.0 Blood Gas Notified TM Whom Blood Gas Notified 11/12/2018 8:32:54 Time AM Subjective 24 Hr Interval Summary Free Text/Dictation Very confused this AM, a bit deliriuous but no physical complaints Exam/Review of Systems Exam Vitals Vital Signs Date Temp Pulse Resp B/P (MAP) Pulse Ox O2 O2 Flow FiO2 Time Delivery Rate 11/12/18 17 96 50 14:16 11/12/18 102 134/86 High Flow 13:00 (102) 11/12/18 98.0 12:00 11/11/18 15.0 17:45 Intake and Output 11/11/18 11/11/18 11/12/18 1414:59 22:59 06:59 IntakeIntake Total 250 ml 175 ml 400 ml OutputOutput Total 2300 ml 4025 ml 650 ml BalanceBalance -2050 ml -3850 ml -250 ml Exam Morbid obesity Breathing comfortably Encephelopahtic resolved peripheral edema Results Results 24hrs Laboratory Tests Test 11/11/18 17:50 11/11/18 20:23 11/12/18 00:46 11/12/18 04:00 Bedside Glucose 112 120 118 White Blood Count 11.9 H Red Blood Count 5.25 Hemoglobin 14.2 Hematocrit 44.6 Mean Corpuscular 85.0 Volume Mean Corpuscular 27.0 L Hemoglobin Mean Corpuscular 31.8 L Hemoglobin Concent Red Cell 19.3 H Distribution Width Platelet Count 282 Mean Platelet 11.4 H Volume Immature 1.100 H Granulocytes % Neutrophils % 64.2 Lymphocytes % 19.3 Monocytes % 13.3 H Eosinophils % 1.8 Basophils % 0.3 Nucleated Red 0.0 Blood Cells % Immature 0.130 H Granulocytes # Neutrophils # 7.7 H Lymphocytes # 2.3 Monocytes # 1.6 H Eosinophils # 0.2 Basophils # 0.0 Nucleated Red 0.0 Blood Cells # Sodium Level 138 Potassium Level 3.2 L Chloride Level 96 L Carbon Dioxide 40 H Level Anion Gap 2 L Blood Urea 11 Nitrogen Creatinine 0.43 L Est Glomerular > 60 Filtrat Rate mL/min Glucose Level 118 Calcium Level 8.7 Total Bilirubin 1.5 H Direct Bilirubin 0.00 Indirect Bilirubin 1.5 H Aspartate Amino 21 Transf (AST/SGOT) Alanine 22 Aminotransferase ( ALT/SGPT) Alkaline 77 Phosphatase Total Protein 6.3 Albumin 3.2 L Globulin 3.10 Albumin/Globulin 1.03 Ratio Test 11/12/18 05:32 11/12/18 08:00 11/12/18 08:53 11/12/18 13:47 Bedside Glucose 124 130 132 Blood Gas Specimen Blood arterial Source Arterial Blood 11/12/2018 8:25:23 Date Drawn AM Arterial Blood pH 7.478 H (Temp corrected) Arterial Blood 51.5 H pCO2 (Temp correct) Arterial Blood pO2 55.8 L (Temp corrected) Arterial Blood 37.3 H HCO3 Arterial Blood 11.7 H Base Excess Arterial Blood 89.6 L Oxygen Saturation Danilo Test ACCEPTAB Arterial Blood Gas Left Radial Puncture Site Arterial 1.6 Blood Carboxyhemog lobin Arterial Blood 0.3 Methemoglobin Blood Gas A-a O2 242.8 H Differential Oxyhemoglobin 87.9 L Percent Blood Gas 37.0 Temperature Blood Gas Modality HFNC FiO2 50.0 Blood Gas Notified TM Whom Blood Gas Notified 11/12/2018 8:32:54 Time AM Medications Medication Current Medications IV Flush (NS 3 ml) 3 ml PER PROTOCOL IV ; Start 10/17/18 at 15:30 Nystatin (Nystatin Powder) 1 applic BID TOP Last administered on 11/12/18at 09:04; Admin Dose 1 APPLIC; Start 10/19/18 at 21:00 Enoxaparin Sodium (Lovenox) 60 mg DAILY SC Last administered on 11/12/18at 08:57; Admin Dose 60 MG; Start 10/21/18 at 09:00 Diagnostic Test (Pha) (Accu-Chek) 1 ea 02 XX Last administered on 11/09/18at 02:09; Admin Dose 1 EA; Start 10/21/18 at 02:00 Miscellaneous Information 1 ea NOTE XX ; Start 10/20/18 at 16:30 Glucose (Glutose) 15 gm Q15M PRN PO DECREASED GLUCOSE; Start 10/20/18 at 16:30 Glucose (Glutose) 22.5 gm Q15M PRN PO DECREASED GLUCOSE; Start 10/20/18 at 16:30 Dextrose (D50w Syringe) 25 ml Q15M PRN IV DECREASED GLUCOSE; Start 10/20/18 at 16:30 Dextrose (D50w Syringe) 50 ml Q15M PRN IV DECREASED GLUCOSE; Start 10/20/18 at 16:30 Glucagon (Glucagen) 1 mg Q15M PRN IM DECREASED GLUCOSE; Start 10/20/18 at 16:30 Glucose (Glutose) 15 gm Q15M PRN BUCCAL DECREASED GLUCOSE; Start 10/20/18 at 16:30 IV Flush (NS 10 ml) 10 ml PRN PRN IV IV PROTOCOL; Start 10/20/18 at 16:30 Acetaminophen (Tylenol Tab) 650 mg Q6H PRN PO MILD PAIN(1-3)OR ELEVATED TEMP Last administered on 10/25/18at 06:33; Admin Dose 650 MG; Start 10/23/18 at 20:30 Insulin Aspart (Novolog Insulin Pen) NOVOLOG *MODERATE* ALGORI... Q4 SC Last administered on 11/09/18at 21:10; Admin Dose 2 UNIT; Start 10/27/18 at 21:00 Lisinopril (Zestril) 20 mg DAILY NGT Last administered on 11/10/18 08:56; Admin Dose 20 MG; Start 10/30/18 at 10:00 Famotidine (Pepcid) 20 mg Q12 GTB Last administered on 11/10/18 08:56; Admin Dose 20 MG; Start 10/31/18 at 21:00 Bisacodyl (Dulcolax Supp) 10 mg Q24H PRN [place] CONSTIPATION Last administered on 11/02/18 09:28; Admin Dose 10 MG; Start 10/31/18 at 11:30 Sodium Biphosphate/ Sodium Phosphate (Fleet Enema) 133 ml Q24H PRN [place] CONSTIPATION Last administered on 11/02/18 09:28; Admin Dose 133 ML; Start 10/31/18 at 11:30 Acetylcysteine (Mucomyst) 3 ml Q6H RESP THERAPY PRN NEB WHEEZING AND RESP DISTRESS Last administered on 11/02/18 02:43; Admin Dose 3 ML; Start 11/01/18 at 23:00 Hydralazine HCl (Apresoline) 10 mg Q4H PRN IV ELEVATED SYSTOLIC BP Last administered on 11/08/18 03:21; Admin Dose 10 MG; Start 11/02/18 at 00:30 Acetylcysteine (Mucomyst) 1 ml Q6H RESP THERAPY NEB Last administered on 11/12/18 14:15; Admin Dose 1 ML; Start 11/02/18 at 08:00 Insulin Glargine (Lantus) 35 units BID@0800,2000 SC Last administered on 11/12/18 08:56; Admin Dose 35 UNITS; Start 11/05/18 at 20:00 Lactulose (Enulose) 30 gm Q6 PO Last administered on 11/10/18 05:43; Admin Dose 30 GM; Start 11/05/18 at 18:00 Senna (Senokot) 2 tab BID PO Last administered on 11/10/18 08:56; Admin Dose 2 TAB; Start 11/09/18 at 21:00 Metoprolol Tartrate (Lopressor) 25 mg BID PO Last administered on 11/11/18 14:33; Admin Dose 25 MG; Start 11/10/18 at 16:30 Metoprolol Tartrate (Lopressor) 5 mg Q6H PRN IV SVT Last administered on 11/10/18 18:44; Admin Dose 5 MG; Start 11/10/18 at 16:30 Albuterol (Ventolin Hfa) 4 puff Q6H RESP THERAPY PRN INH SHORTNESS OF BREATH; Start 11/10/18 at 17:30 Ipratropium Gulliver (Atrovent Hfa) 4 puff Q6H RESP THERAPY PRN INH SHORTNESS OF BREATH; Start 11/10/18 at 17:30 Albuterol/ Ipratropium (Duoneb) 3 ml Q6H RESP THERAPY HHN Last administered on 11/12/18at 14:16; Admin Dose 3 ML; Start 11/10/18 at 20:30 Metoprolol Tartrate (Lopressor) 5 mg Q6 IV Last administered on 11/12/18at 13:48; Admin Dose 5 MG; Start 11/11/18 at 00:00 Lorazepam (Ativan) 1 mg Q4 PRN IV agitation, anxiety Last administered on 11/11/18 22:25; Admin Dose 1 MG; Start 11/11/18 at 00:30 Acetaminophen (Tylenol Supp) 650 mg Q6H PRN [place] fever; Start 11/11/18 at 06:30 Furosemide (Lasix) 40 mg BID DIURETICS IV Last administered on 11/12/18 05:33; Admin Dose 40 MG; Start 11/11/18 at 09:00 Potassium Chloride (Klor-Con 20) 40 meq DAILY PO ; Start 11/12/18 at 16:00 LUCIE ELIZABETH MD Nov 12, 2018 15:41
[2018-11-12] MEDS ORDERED: POTASSIUM CHLORIDE (SR) 20 MEQ TAB PO SCH (16:00)
[2018-11-12] MEDS: POTASSIUM CHLORIDE 20 MEQ POWDER FOR ORAL SOLN PO SCH (17:03)
[2018-11-13] VITALS (19 sets, daily range): BP systolic 108–165; BP diastolic 75–122; PULSE 86–97; RESP 16–25
[2018-11-13] MEDS: METOPROLOL 5 MG INJ IV SCH ×4 (00:39→17:56)
[2018-11-13] MEDS: INSULIN ASPART [NOVOLOG] 3 ML PEN SC SCH ×6 (00:39→22:31)
[2018-11-13] MEDS: ALBUTEROL/IPRATROPIUM (NEB) 3 ML AMP HHN SCH ×4 (01:16→19:48)
[2018-11-13] MEDS: ACETYLCYSTEINE 20% 4 ML VIAL NEB SCH ×4 (01:16→19:49)
[2018-11-13] MEDS: ACCU-CHEK XX SCH (01:36)
[2018-11-13] MEDS: LACTULOSE 30ML CUP PO SCH ×4 (05:10→17:50)
[2018-11-13] MEDS: FUROSEMIDE 40 MG INJ IV SCH ×2 (06:05→18:02)
[2018-11-13] MEDS: POTASSIUM CHLORIDE 100 ML IVPB SCH ×3 (06:20→13:39)
[2018-11-13] MEDS ORDERED: MAGNESIUM SULFATE 3 GM in DEXTROSE 5% 100 ML IVPB ONE (06:40)
[2018-11-13] MEDS: SENNA TAB PO SCH ×2 (09:00→22:26)
[2018-11-13] MEDS: LISINOPRIL 20 MG TAB NGT SCH (09:15)
[2018-11-13] MEDS: POTASSIUM CHLORIDE 20 MEQ POWDER FOR ORAL SOLN PO SCH ×2 (09:15→22:27)
[2018-11-13] MEDS: FAMOTIDINE 20 MG TAB GTB SCH ×2 (09:15→22:27)
[2018-11-13] MEDS: NYSTATIN 30 GM POWDER BTL TOP SCH ×2 (09:16→22:29)
[2018-11-13] MEDS: METOPROLOL 25 MG TAB PO SCH ×2 (09:16→22:29)
[2018-11-13] MEDS: ENOXAPARIN 60 MG/0.6 ML SYG SC SCH (09:46)
[2018-11-13] MEDS: INSULIN GLARGINE [LANTus] (100 UNITS/ML) SYG SC SCH ×2 (09:46→22:35)
--- NOTE | 2018-11-13 10:30 | CONS ---
Consult Date/Type/Reason Admit Date/Time Oct 17, 2018 at 14:17 Initial Consult Date 10/18/18 Type of Consult Pulmonary Date/Time of Note DATE: 11/13/18 TIME: 10:29 Subjective Awake alert oriented this morning. No respiratory distress. Declined bilevel ventilation continues high flow FiO2 being decreased. Objective Vital Signs Date Temp Pulse Resp B/P (MAP) Pulse Ox O2 O2 Flow FiO2 Time Delivery Rate 11/13/18 90 55 09:50 11/13/18 93 22 08:38 11/13/18 165/104 High Flow 06:00 (124) 11/13/18 99.2 04:00 11/11/18 15.0 17:45 Intake and Output 11/12/18 11/12/18 11/13/18 1515:00 23:00 07:00 IntakeIntake Total 350 ml 125 ml OutputOutput Total 2150 ml 2750 ml 650 ml BalanceBalance -1800 ml -2625 ml -650 ml Exam GENERAL: Obese gentleman comfortable on high flow O2 VITAL SIGNS: per chart NECK: Supple. No JVD or lymphadenopathy. CARDIAC EXAM: S1, S2. No added sounds or murmurs. CHEST: Diminished air entry bilaterally ABDOMEN: Soft, nontender. No guarding or rebound. EXTREMITIES: No cyanosis, clubbing NEUROLOGIC: Generalized weakness. Vent Setting Ventilator Support Mode: CPAP Fraction of Inspired Oxygen pe: 55 Positive End Expiratory Pressu: 5.0 Results/Medications Result Diagram: 11/13/18 0459 11/13/18 0459 Results 24 hrs Laboratory Tests Test 11/12/18 13:47 11/12/18 17:09 11/12/18 20:26 11/13/18 00:38 Bedside Glucose 132 90 88 80 Test 11/13/18 04:59 11/13/18 06:03 11/13/18 07:00 11/13/18 09:42 White Blood Count 10.8 Red Blood Count 5.27 Hemoglobin 14.2 Hematocrit 44.2 Mean Corpuscular 83.9 Volume Mean Corpuscular 26.9 L Hemoglobin Mean Corpuscular 32.1 Hemoglobin Concent Red Cell 19.1 H Distribution Width Platelet Count 247 Mean Platelet 10.7 H Volume Immature 0.800 H Granulocytes % Neutrophils % 58.8 Lymphocytes % 22.4 Monocytes % 14.7 H Eosinophils % 2.7 Basophils % 0.6 Nucleated Red 0.0 Blood Cells % Immature 0.090 H Granulocytes # Neutrophils # 6.4 Lymphocytes # 2.4 Monocytes # 1.6 H Eosinophils # 0.3 Basophils # 0.1 Nucleated Red 0.0 Blood Cells # Sodium Level 139 Potassium Level 3.0 L Chloride Level 93 L Carbon Dioxide Level Anion Gap 12 # Blood Urea 12 Nitrogen Creatinine 0.38 L Est Glomerular > 60 Filtrat Rate mL/min Glucose Level 81 Calcium Level 8.7 Phosphorus Level 4.6 Magnesium Level 1.5 L Bedside Glucose 71 86 Blood Gas Specimen Blood arterial Source Arterial Blood 11/13/2018 7:10:07 Date Drawn AM Arterial Blood pH 7.474 H (Temp corrected) Arterial Blood 54.3 H pCO2 (Temp correct) Arterial Blood pO2 58.4 L (Temp corrected) Arterial Blood 39.0 H HCO3 Arterial Blood 12.8 H Base Excess Arterial Blood 91.3 L Oxygen Saturation Danilo Test ACCEPTAB Arterial Blood Gas Left Radial Puncture Site Arterial 1.8 Blood Carboxyhemog lobin Arterial Blood 0.3 Methemoglobin Blood Gas A-a O2 273.3 H Differential Oxyhemoglobin 89.4 L Percent Blood Gas 37.0 Temperature Blood Gas Modality HFNC FiO2 55.0 Blood Gas Notified TM Whom Blood Gas Notified 11/13/2018 7:40:37 Time AM Medications Current Medications IV Flush (NS 3 ml) 3 ml PER PROTOCOL IV ; Start 10/17/18 at 15:30 Nystatin (Nystatin Powder) 1 applic BID TOP Last administered on 11/13/18at 09:16; Admin Dose 1 APPLIC; Start 10/19/18 at 21:00 Enoxaparin Sodium (Lovenox) 60 mg DAILY SC Last administered on 11/13/18at 09:46; Admin Dose 60 MG; Start 10/21/18 at 09:00 Diagnostic Test (Pha) (Accu-Chek) 1 ea 02 XX Last administered on 11/09/18at 02:09; Admin Dose 1 EA; Start 10/21/18 at 02:00 Miscellaneous Information 1 ea NOTE XX ; Start 10/20/18 at 16:30 Glucose (Glutose) 15 gm Q15M PRN PO DECREASED GLUCOSE; Start 10/20/18 at 16:30 Glucose (Glutose) 22.5 gm Q15M PRN PO DECREASED GLUCOSE; Start 10/20/18 at 16:30 Dextrose (D50w Syringe) 25 ml Q15M PRN IV DECREASED GLUCOSE; Start 10/20/18 at 16:30 Dextrose (D50w Syringe) 50 ml Q15M PRN IV DECREASED GLUCOSE; Start 10/20/18 at 16:30 Glucagon (Glucagen) 1 mg Q15M PRN IM DECREASED GLUCOSE; Start 10/20/18 at 16:30 Glucose (Glutose) 15 gm Q15M PRN BUCCAL DECREASED GLUCOSE; Start 10/20/18 at 16:30 IV Flush (NS 10 ml) 10 ml PRN PRN IV IV PROTOCOL; Start 10/20/18 at 16:30 Acetaminophen (Tylenol Tab) 650 mg Q6H PRN PO MILD PAIN(1-3)OR ELEVATED TEMP Last administered on 10/25/18 06:33; Admin Dose 650 MG; Start 10/23/18 at 20:30 Insulin Aspart (Novolog Insulin Pen) NOVOLOG *MODERATE* ALGORI... Q4 SC Last administered on 11/09/18 21:10; Admin Dose 2 UNIT; Start 10/27/18 at 21:00 Lisinopril (Zestril) 20 mg DAILY NGT Last administered on 11/13/18 09:15; Admin Dose 20 MG; Start 10/30/18 at 10:00 Famotidine (Pepcid) 20 mg Q12 GTB Last administered on 11/13/18 09:15; Admin Dose 20 MG; Start 10/31/18 at 21:00 Bisacodyl (Dulcolax Supp) 10 mg Q24H PRN [place] CONSTIPATION Last administered on 11/02/18 09:28; Admin Dose 10 MG; Start 10/31/18 at 11:30 Sodium Biphosphate/ Sodium Phosphate (Fleet Enema) 133 ml Q24H PRN [place] CONSTIPATION Last administered on 11/02/18 09:28; Admin Dose 133 ML; Start 10/31/18 at 11:30 Acetylcysteine (Mucomyst) 3 ml Q6H RESP THERAPY PRN NEB WHEEZING AND RESP DISTRESS Last administered on 11/02/18 02:43; Admin Dose 3 ML; Start 11/01/18 at 23:00 Hydralazine HCl (Apresoline) 10 mg Q4H PRN IV ELEVATED SYSTOLIC BP Last administered on 11/08/18 03:21; Admin Dose 10 MG; Start 11/02/18 at 00:30 Acetylcysteine (Mucomyst) 1 ml Q6H RESP THERAPY NEB Last administered on 11/13/18 08:36; Admin Dose 1 ML; Start 11/02/18 at 08:00 Insulin Glargine (Lantus) 35 units BID@0800,2000 SC Last administered on 11/13/18 09:46; Admin Dose 35 UNITS; Start 11/05/18 at 20:00 Lactulose (Enulose) 30 gm Q6 PO Last administered on 11/10/18 05:43; Admin Dose 30 GM; Start 11/05/18 at 18:00 Senna (Senokot) 2 tab BID PO Last administered on 11/10/18 08:56; Admin Dose 2 TAB; Start 11/09/18 at 21:00 Metoprolol Tartrate (Lopressor) 25 mg BID PO Last administered on 11/13/18 09:16; Admin Dose 25 MG; Start 11/10/18 at 16:30 Metoprolol Tartrate (Lopressor) 5 mg Q6H PRN IV SVT Last administered on 18:44; Admin Dose 5 MG; Start 11/10/18 at 16:30 Albuterol (Ventolin Hfa) 4 puff Q6H RESP THERAPY PRN INH SHORTNESS OF BREATH; Start 11/10/18 at 17:30 Ipratropium Lindsay (Atrovent Hfa) 4 puff Q6H RESP THERAPY PRN INH SHORTNESS OF BREATH; Start 11/10/18 at 17:30 Albuterol/ Ipratropium (Duoneb) 3 ml Q6H RESP THERAPY HHN Last administered on 11/13/18 08:36; Admin Dose 3 ML; Start 11/10/18 at 20:30 Metoprolol Tartrate (Lopressor) 5 mg Q6 IV Last administered on 11/13/18 06:04; Admin Dose 5 MG; Start 11/11/18 at 00:00 Lorazepam (Ativan) 1 mg Q4 PRN IV agitation, anxiety Last administered on 22:25; Admin Dose 1 MG; Start 11/11/18 at 00:30 Acetaminophen (Tylenol Supp) 650 mg Q6H PRN [place] fever; Start 11/11/18 at 06:30 Furosemide (Lasix) 40 mg BID DIURETICS IV Last administered on 11/13/18at 06:05; Admin Dose 40 MG; Start 11/11/18 at 09:00 Potassium Chloride (Potassium Chloride Pwd/Soln) 40 meq DAILY PO Last administered on 11/13/18at 09:15; Admin Dose 40 MEQ; Start 11/12/18 at 16:00 Potassium Chloride 100 ml @ 50 mls/hr Q2H IVPB Last administered on 11/13/18at 10:05; Admin Dose 50 MLS/HR; Start 11/13/18 at 06:30; Stop 11/13/18 at 12:29 Nystatin (Nystatin Susp) 5 ml QHS PO ; Start 11/13/18 at 21:00 Assessment/Plan Hospital Course (Demo Recall) Assessment 1. Status post acute on chronic hypoxemic respiratory failure 2. Likely obesity hypoventilation syndrome with chronic hypercapnia 3. Status post congestive cardiac failure ongoing significant pulmonary edema 4. History of diabetes mellitus Plan 1. Aspiration precautions speech therapy recommendations 2. Continue diuretics if tolerated 3. Physical therapy encourage out of bed 4. Continue DVT GI prophylaxis 5. Decrease O2 as tolerated and for O2 sat of 88%, nocturnal bilevel v entilation As tolerated Critical care time 40 minutes Transfer to telemetry RENATO JAVIER MD, FCCP Nov 13, 2018 10:30
--- NOTE | 2018-11-13 16:51 | PN ---
Date/Time of Note Date/Time of Note DATE: 11/13/18 TIME: 16:50 Assessment/Plan VTE Prophylaxis Risk score (from Ns)>0 risk: 9 SCD applied (from Nsg): Yes Pharmacological prophylaxis: heparin Lines/Catheters IV Catheter Type (from Nrsg): Mid Line Urinary Cath still in place: Yes Reason Cath still needed: urinary retention Assessment/Plan Hospital Course 52 yo male with h/o morbid obesity, OHS, DMII who presents with acute hypercapneic and hypoxic respiratory failure 2/2 pneumonia/ARDS as well as acute diastolic CHF PULM: Acute on chronic hypoxic/hypercapneic respiratory failure: - Continue diuretics. Very difficult to assess central volume status but given no evidence of pneumonia will presume infiltrates on CXR are pulmonary edema - HFNC o2 as needed - Nocturnal bipap for hypercapnea - Hold sedatives Metabolic alkalosis from volume contraction: - Aggressive KCl repletion Acute encephelopathy: - Likely delirium from sedation, hopstialization etc. Continue to monitor CV: CHF: - Lasix to euvolemia - TTE wiht normal EF ENDO: DMII: - insulin Continue ICU care PT/OT Result Diagram: 11/13/1845811/13/189 Results 24hrs Laboratory Tests Test 11/12/18 17:09 11/12/18 20:26 11/13/18 00:38 11/13/18 04:59 Bedside Glucose 90 88 80 White Blood Count 10.8 Red Blood Count 5.27 Hemoglobin 14.2 Hematocrit 44.2 Mean Corpuscular 83.9 Volume Mean Corpuscular 26.9 L Hemoglobin Mean Corpuscular 32.1 Hemoglobin Concent Red Cell 19.1 H Distribution Width Platelet Count 247 Mean Platelet 10.7 H Volume Immature 0.800 H Granulocytes % Neutrophils % 58.8 Lymphocytes % 22.4 Monocytes % 14.7 H Eosinophils % 2.7 Basophils % 0.6 Nucleated Red 0.0 Blood Cells % Immature 0.090 H Granulocytes # Neutrophils # 6.4 Lymphocytes # 2.4 Monocytes # 1.6 H Eosinophils # 0.3 Basophils # 0.1 Nucleated Red 0.0 Blood Cells # Sodium Level 139 Potassium Level 3.0 L Chloride Level 93 L Carbon Dioxide Level Anion Gap 12 # Blood Urea 12 Nitrogen Creatinine 0.38 L Est Glomerular > 60 Filtrat Rate mL/min Glucose Level 81 Calcium Level 8.7 Phosphorus Level 4.6 Magnesium Level 1.5 L Test 11/13/18 06:03 11/13/18 07:00 11/13/18 09:42 11/13/18 13:38 Bedside Glucose 71 86 100 Blood Gas Specimen Blood arterial Source Arterial Blood 11/13/2018 7:10:07 Date Drawn AM Arterial Blood pH 7.474 H (Temp corrected) Arterial Blood 54.3 H pCO2 (Temp correct) Arterial Blood pO2 58.4 L (Temp corrected) Arterial Blood 39.0 H HCO3 Arterial Blood 12.8 H Base Excess Arterial Blood 91.3 L Oxygen Saturation Danilo Test ACCEPTAB Arterial Blood Gas Left Radial Puncture Site Arterial 1.8 Blood Carboxyhemog lobin Arterial Blood 0.3 Methemoglobin Blood Gas A-a O2 273.3 H Differential Oxyhemoglobin 89.4 L Percent Blood Gas 37.0 Temperature Blood Gas Modality HFNC FiO2 55.0 Blood Gas Notified TM Whom Blood Gas Notified 11/13/2018 7:40:37 Time AM Subjective 24 Hr Interval Summary Free Text/Dictation Continues to improve Denies complaints Exam/Review of Systems Exam Vitals Vital Signs Date Temp Pulse Resp B/P (MAP) Pulse Ox O2 O2 Flow FiO2 Time Delivery Rate 11/13/18 96 16:33 11/13/18 93 55 16:32 11/13/18 98.7 22 115/77 High Flow 16:15 (90) 11/11/18 15.0 17:45 Intake and Output 11/12/18 11/12/18 11/13/18 1414:59 22:59 06:59 IntakeIntake Total 350 ml 125 ml OutputOutput Total 2200 ml 2750 ml 850 ml BalanceBalance -1850 ml -2625 ml -850 ml Exam Breathing comfortably on HFNC Clear lungs No distress Obese belly, pannus Peripheral edema resolved, venous stasis changes Results Results 24hrs Laboratory Tests Test 11/12/18 17:09 11/12/18 20:26 11/13/18 00:38 11/13/18 04:59 Bedside Glucose 90 88 80 White Blood Count 10.8 Red Blood Count 5.27 Hemoglobin 14.2 Hematocrit 44.2 Mean Corpuscular 83.9 Volume Mean Corpuscular 26.9 L Hemoglobin Mean Corpuscular 32.1 Hemoglobin Concent Red Cell 19.1 H Distribution Width Platelet Count 247 Mean Platelet 10.7 H Volume Immature 0.800 H Granulocytes % Neutrophils % 58.8 Lymphocytes % 22.4 Monocytes % 14.7 H Eosinophils % 2.7 Basophils % 0.6 Nucleated Red 0.0 Blood Cells % Immature 0.090 H Granulocytes # Neutrophils # 6.4 Lymphocytes # 2.4 Monocytes # 1.6 H Eosinophils # 0.3 Basophils # 0.1 Nucleated Red 0.0 Blood Cells # Sodium Level 139 Potassium Level 3.0 L Chloride Level 93 L Carbon Dioxide Level Anion Gap 12 # Blood Urea 12 Nitrogen Creatinine 0.38 L Est Glomerular > 60 Filtrat Rate mL/min Glucose Level 81 Calcium Level 8.7 Phosphorus Level 4.6 Magnesium Level 1.5 L Test 11/13/18 06:03 11/13/18 07:00 11/13/18 09:42 11/13/18 13:38 Bedside Glucose 71 86 100 Blood Gas Specimen Blood arterial Source Arterial Blood 11/13/2018 7:10:07 Date Drawn AM Arterial Blood pH 7.474 H (Temp corrected) Arterial Blood 54.3 H pCO2 (Temp correct) Arterial Blood pO2 58.4 L (Temp corrected) Arterial Blood 39.0 H HCO3 Arterial Blood 12.8 H Base Excess Arterial Blood 91.3 L Oxygen Saturation Danilo Test ACCEPTAB Arterial Blood Gas Left Radial Puncture Site Arterial 1.8 Blood Carboxyhemog lobin Arterial Blood 0.3 Methemoglobin Blood Gas A-a O2 273.3 H Differential Oxyhemoglobin 89.4 L Percent Blood Gas 37.0 Temperature Blood Gas Modality HFNC FiO2 55.0 Blood Gas Notified TM Whom Blood Gas Notified 11/13/2018 7:40:37 Time AM Medications Medication Current Medications IV Flush (NS 3 ml) 3 ml PER PROTOCOL IV ; Start 10/17/18 at 15:30 Nystatin (Nystatin Powder) 1 applic BID TOP Last administered on 11/13/18at 09:16; Admin Dose 1 APPLIC; Start 10/19/18 at 21:00 Enoxaparin Sodium (Lovenox) 60 mg DAILY SC Last administered on 11/13/18at 09:46; Admin Dose 60 MG; Start 10/21/18 at 09:00 Diagnostic Test (Pha) (Accu-Chek) 1 ea 02 XX Last administered on 11/09/18at 02:09; Admin Dose 1 EA; Start 10/21/18 at 02:00 Miscellaneous Information 1 ea NOTE XX ; Start 10/20/18 at 16:30 Glucose (Glutose) 15 gm Q15M PRN PO DECREASED GLUCOSE; Start 10/20/18 at 16:30 Glucose (Glutose) 22.5 gm Q15M PRN PO DECREASED GLUCOSE; Start 10/20/18 at 16:30 Dextrose (D50w Syringe) 25 ml Q15M PRN IV DECREASED GLUCOSE; Start 10/20/18 at 16:30 Dextrose (D50w Syringe) 50 ml Q15M PRN IV DECREASED GLUCOSE; Start 10/20/18 at 16:30 Glucagon (Glucagen) 1 mg Q15M PRN IM DECREASED GLUCOSE; Start 10/20/18 at 16:30 Glucose (Glutose) 15 gm Q15M PRN BUCCAL DECREASED GLUCOSE; Start 10/20/18 at 16:30 IV Flush (NS 10 ml) 10 ml PRN PRN IV IV PROTOCOL; Start 10/20/18 at 16:30 Acetaminophen (Tylenol Tab) 650 mg Q6H PRN PO MILD PAIN(1-3)OR ELEVATED TEMP Last administered on 10/25/18at 06:33; Admin Dose 650 MG; Start 10/23/18 at 20:30 Insulin Aspart (Novolog Insulin Pen) NOVOLOG *MODERATE* ALGORI... Q4 SC Last administered on 11/09/18at 21:10; Admin Dose 2 UNIT; Start 10/27/18 at 21:00 Lisinopril (Zestril) 20 mg DAILY NGT Last administered on 11/13/18at 09:15; Admin Dose 20 MG; Start 10/30/18 at 10:00 Famotidine (Pepcid) 20 mg Q12 GTB Last administered on 11/13/18 09:15; Admin Dose 20 MG; Start 10/31/18 at 21:00 Bisacodyl (Dulcolax Supp) 10 mg Q24H PRN [place] CONSTIPATION Last administered on 11/02/18at 09:28; Admin Dose 10 MG; Start 10/31/18 at 11:30 Sodium Biphosphate/ Sodium Phosphate (Fleet Enema) 133 ml Q24H PRN RI CONSTIPATION Last administered on 11/02/18at 09:28; Admin Dose 133 ML; Start 10/31/18 at 11:30 Acetylcysteine (Mucomyst) 3 ml Q6H RESP THERAPY PRN NEB WHEEZING AND RESP DISTRESS Last administered on 11/02/18 02:43; Admin Dose 3 ML; Start 11/01/18 at 23:00 Hydralazine HCl (Apresoline) 10 mg Q4H PRN IV ELEVATED SYSTOLIC BP Last administered on 11/08/18 03:21; Admin Dose 10 MG; Start 11/02/18 at 00:30 Acetylcysteine (Mucomyst) 1 ml Q6H RESP THERAPY NEB Last administered on 11/13/18 08:36; Admin Dose 1 ML; Start 11/02/18 at 08:00 Insulin Glargine (Lantus) 35 units BID@0800,2000 SC Last administered on 11/13/18 09:46; Admin Dose 35 UNITS; Start 11/05/18 at 20:00 Lactulose (Enulose) 30 gm Q6 PO Last administered on 11/10/18 05:43; Admin Dose 30 GM; Start 11/05/18 at 18:00 Senna (Senokot) 2 tab BID PO Last administered on 11/10/18 08:56; Admin Dose 2 TAB; Start 11/09/18 at 21:00 Metoprolol Tartrate (Lopressor) 25 mg BID PO Last administered on 11/13/18 09:16; Admin Dose 25 MG; Start 11/10/18 at 16:30 Metoprolol Tartrate (Lopressor) 5 mg Q6H PRN IV SVT Last administered on 11/10/18 18:44; Admin Dose 5 MG; Start 11/10/18 at 16:30 Albuterol (Ventolin Hfa) 4 puff Q6H RESP THERAPY PRN INH SHORTNESS OF BREATH; Start 11/10/18 at 17:30 Ipratropium [place] (Atrovent Hfa) 4 puff Q6H RESP THERAPY PRN INH SHORTNESS OF BREATH; Start 11/10/18 at 17:30 Albuterol/ Ipratropium (Duoneb) 3 ml Q6H RESP THERAPY HHN Last administered on 11/13/18 08:36; Admin Dose 3 ML; Start 11/10/18 at 20:30 Metoprolol Tartrate (Lopressor) 5 mg Q6 IV Last administered on 11/13/18 13:41; Admin Dose 5 MG; Start 11/11/18 at 00:00 Lorazepam (Ativan) 1 mg Q4 PRN IV agitation, anxiety Last administered on 11/11/18 22:25; Admin Dose 1 MG; Start 11/11/18 at 00:30 Acetaminophen (Tylenol Supp) 650 mg Q6H PRN RI fever; Start 11/11/18 at 06:30 Furosemide (Lasix) 40 mg BID DIURETICS IV Last administered on 11/13/18 06:05; Admin Dose 40 MG; Start 11/11/18 at 09:00 Potassium Chloride (Potassium Chloride Pwd/Soln) 40 meq DAILY PO Last administered on 11/13/18 09:15; Admin Dose 40 MEQ; Start 11/12/18 at 16:00 Nystatin (Nystatin Susp) 5 ml QHS PO ; Start 11/13/18 at 21:00 LUCIE ELIZABETH MD Nov 13, 2018 16:51
[2018-11-13] MEDS: NYSTATIN SUSP 5 ML CUP PO SCH (21:00)
[2018-11-14] VITALS (12 sets, daily range): BP systolic 123–140; BP diastolic 71–89; PULSE 78–95; RESP 18–22
[2018-11-14] MEDS: INSULIN ASPART [NOVOLOG] 3 ML PEN SC SCH ×6 (01:00→21:00)
[2018-11-14] MEDS: ACETYLCYSTEINE 20% 4 ML VIAL NEB SCH ×4 (01:00→19:38)
[2018-11-14] MEDS: ALBUTEROL/IPRATROPIUM (NEB) 3 ML AMP HHN SCH ×4 (01:00→19:38)
[2018-11-14] MEDS: ACCU-CHEK XX SCH (02:00)
[2018-11-14] MEDS: LACTULOSE 30ML CUP PO SCH ×4 (06:22→17:30)
[2018-11-14] MEDS: FUROSEMIDE 40 MG INJ IV SCH ×2 (06:23→17:31)
[2018-11-14] MEDS: METOPROLOL 5 MG INJ IV SCH ×4 (06:23→17:32)
[2018-11-14] MEDS: METOPROLOL 25 MG TAB PO SCH ×2 (09:05→21:02)
[2018-11-14] MEDS: SENNA TAB PO SCH ×2 (09:06→21:03)
[2018-11-14] MEDS: FAMOTIDINE 20 MG TAB GTB SCH ×2 (09:06→21:02)
[2018-11-14] MEDS: LISINOPRIL 20 MG TAB NGT SCH (09:06)
[2018-11-14] MEDS: POTASSIUM CHLORIDE 20 MEQ POWDER FOR ORAL SOLN PO SCH ×2 (09:07→21:03)
[2018-11-14] MEDS: ENOXAPARIN 60 MG/0.6 ML SYG SC SCH (09:18)
[2018-11-14] MEDS: INSULIN GLARGINE [LANTus] (100 UNITS/ML) SYG SC SCH ×2 (09:19→20:00)
[2018-11-14] MEDS: NYSTATIN 30 GM POWDER BTL TOP SCH ×2 (09:20→21:05)
[2018-11-14] MEDS ORDERED: POTASSIUM CHLORIDE (SR) 20 MEQ TAB PO STA (10:23)
--- NOTE | 2018-11-14 14:33 | PN ---
Date/Time of Note Date/Time of Note DATE: 11/14/18 TIME: 14:31 Assessment/Plan VTE Prophylaxis Risk score (from Ns)>0 risk: 3 SCD applied (from Nsg): Yes Pharmacological prophylaxis: heparin Lines/Catheters IV Catheter Type (from Nrsg): Mid Line Urinary Cath still in place: Yes Reason Cath still needed: urinary retention Assessment/Plan Hospital Course 52 yo male with h/o morbid obesity, OHS, DMII who presents with acute hypercapneic and hypoxic respiratory failure 2/2 pneumonia/ARDS as well as acute diastolic CHF Acute on chronic hypoxic/hypercapneic respiratory failure 2/2 OHS and acute diastolic CHF: - Continue diuretics. Will add spironolactone for potassium sparin - HFNC o2 as needed OHS: - Nocturnal bipap for hypercapnea - Hold sedatives Metabolic alkalosis from volume contraction: - Aggressive KCl repletion Acute encephelopathy: - Likely delirium from sedation, hopstialization etc. Continue to monitor DMII: - basal/bolus insulin Continue ICU care PT/OT Result Diagram: 11/14/1810 11/14/18 0910 Results 24hrs Laboratory Tests Test 11/13/18 17:47 11/13/18 20:27 11/14/18 02:51 11/14/18 06:36 Bedside Glucose 135 218 164 86 Test 11/14/18 09:04 11/14/18 09:10 11/14/18 13:17 Bedside Glucose 103 136 White Blood Count 9.4 Red Blood Count 5.69 Hemoglobin 15.2 Hematocrit 47.7 Mean Corpuscular Volume 83.8 Mean Corpuscular 26.7 L Hemoglobin Mean Corpuscular 31.9 L Hemoglobin Concent Red Cell Distribution 19.9 H Width Platelet Count 221 Mean Platelet Volume 10.0 Immature Granulocytes % 0.600 H Neutrophils % 53.3 Lymphocytes % 27.7 Monocytes % 14.1 H Eosinophils % 3.7 Basophils % 0.6 Nucleated Red Blood 0.0 Cells % Immature Granulocytes # 0.060 H Neutrophils # 5.0 Lymphocytes # 2.6 Monocytes # 1.3 H Eosinophils # 0.4 Basophils # 0.1 Nucleated Red Blood 0.0 Cells # Sodium Level 138 Potassium Level 3.1 L Chloride Level 91 L Carbon Dioxide Level 38 H Anion Gap 9 Blood Urea Nitrogen 12 Creatinine 0.45 L Est Glomerular Filtrat > 60 Rate mL/min Glucose Level 123 # Calcium Level 9.2 Total Bilirubin 1.6 H Direct Bilirubin 0.00 Indirect Bilirubin 1.6 H Aspartate Amino 21 Transf (AST/SGOT) Alanine 18 Aminotransferase (ALT/SG PT) Alkaline Phosphatase 91 Total Protein 6.8 Albumin 3.6 Globulin 3.20 Albumin/Globulin Ratio 1.12 Subjective 24 Hr Interval Summary Free Text/Dictation Patinet remains a bit delirious/encephelopahtic but improving Denies complaints Breathign comfortably Exam/Review of Systems Exam Vitals Vital Signs Date Temp Pulse Resp B/P (MAP) Pulse Ox O2 O2 Flow FiO2 Time Delivery Rate 11/14/18 60 13:53 11/14/18 93 13:42 11/14/18 92 20 13:39 11/14/18 98.2 140/80 11:25 (100) 11/14/18 Nasal 07:40 Cannula 11/11/18 15.0 17:45 Intake and Output 11/13/18 11/13/18 11/14/18 1515:00 23:00 07:00 IntakeIntake Total 501 ml 100 ml OutputOutput Total 2050 ml 1000 ml 700 ml BalanceBalance -1549 ml -900 ml -700 ml Exam + JVD Breathign comfortably on HFNC RRR Clear lungs + HJR No perihperal edema remaining Results Results 24hrs Laboratory Tests Test 11/13/18 17:47 11/13/18 20:27 11/14/18 02:51 11/14/18 06:36 Bedside Glucose 135 218 164 86 Test 11/14/18 09:04 11/14/18 09:10 11/14/18 13:17 Bedside Glucose 103 136 White Blood Count 9.4 Red Blood Count 5.69 Hemoglobin 15.2 Hematocrit 47.7 Mean Corpuscular Volume 83.8 Mean Corpuscular 26.7 L Hemoglobin Mean Corpuscular 31.9 L Hemoglobin Concent Red Cell Distribution 19.9 H Width Platelet Count 221 Mean Platelet Volume 10.0 Immature Granulocytes % 0.600 H Neutrophils % 53.3 Lymphocytes % 27.7 Monocytes % 14.1 H Eosinophils % 3.7 Basophils % 0.6 Nucleated Red Blood 0.0 Cells % Immature Granulocytes # 0.060 H Neutrophils # 5.0 Lymphocytes # 2.6 Monocytes # 1.3 H Eosinophils # 0.4 Basophils # 0.1 Nucleated Red Blood 0.0 Cells # Sodium Level 138 Potassium Level 3.1 L Chloride Level 91 L Carbon Dioxide Level 38 H Anion Gap 9 Blood Urea Nitrogen 12 Creatinine 0.45 L Est Glomerular Filtrat > 60 Rate mL/min Glucose Level 123 # Calcium Level 9.2 Total Bilirubin 1.6 H Direct Bilirubin 0.00 Indirect Bilirubin 1.6 H Aspartate Amino 21 Transf (AST/SGOT) Alanine 18 Aminotransferase (ALT/SG PT) Alkaline Phosphatase 91 Total Protein 6.8 Albumin 3.6 Globulin 3.20 Albumin/Globulin Ratio 1.12 Medications Medication Current Medications IV Flush (NS 3 ml) 3 ml PER PROTOCOL IV ; Start 10/17/18 at 15:30 Nystatin (Nystatin Powder) 1 applic BID TOP Last administered on 11/14/18at 0 9:20; Admin Dose 1 APPLIC; Start 10/19/18 at 21:00 Enoxaparin Sodium (Lovenox) 60 mg DAILY SC Last administered on 11/14/18at 09:18; Admin Dose 60 MG; Start 10/21/18 at 09:00 Diagnostic Test (Pha) (Accu-Chek) 1 ea 02 XX Last administered on 11/14/18at 02:00; Admin Dose 1 EA; Start 10/21/18 at 02:00 Miscellaneous Information 1 ea NOTE XX ; Start 10/20/18 at 16:30 Glucose (Glutose) 15 gm Q15M PRN PO DECREASED GLUCOSE; Start 10/20/18 at 16:30 Glucose (Glutose) 22.5 gm Q15M PRN PO DECREASED GLUCOSE; Start 10/20/18 at 16:30 Dextrose (D50w Syringe) 25 ml Q15M PRN IV DECREASED GLUCOSE; Start 10/20/18 at 16:30 Dextrose (D50w Syringe) 50 ml Q15M PRN IV DECREASED GLUCOSE; Start 10/20/18 at 16:30 Glucagon (Glucagen) 1 mg Q15M PRN IM DECREASED GLUCOSE; Start 10/20/18 at 16:30 Glucose (Glutose) 15 gm Q15M PRN BUCCAL DECREASED GLUCOSE; Start 10/20/18 at 16:30 IV Flush (NS 10 ml) 10 ml PRN PRN IV IV PROTOCOL; Start 10/20/18 at 16:30 Acetaminophen (Tylenol Tab) 650 mg Q6H PRN PO MILD PAIN(1-3)OR ELEVATED TEMP Last administered on 10/25/18 06:33; Admin Dose 650 MG; Start 10/23/18 at 20:30 Insulin Aspart (Novolog Insulin Pen) NOVOLOG *MODERATE* ALGORI... Q4 SC Last administered on 11/13/18 22:31; Admin Dose 2 UNIT; Start 10/27/18 at 21:00 Lisinopril (Zestril) 20 mg DAILY NGT Last administered on 11/14/18 09:06; Admin Dose 20 MG; Start 10/30/18 at 10:00 Famotidine (Pepcid) 20 mg Q12 GTB Last administered on 11/14/18 09:06; Admin Dose 20 MG; Start 10/31/18 at 21:00 Bisacodyl (Dulcolax Supp) 10 mg Q24H PRN [place] CONSTIPATION Last administered on 11/02/18 09:28; Admin Dose 10 MG; Start 10/31/18 at 11:30 Sodium Biphosphate/ Sodium Phosphate (Fleet Enema) 133 ml Q24H PRN [place] CONSTIPATION Last administered on 11/02/18 09:28; Admin Dose 133 ML; Start 10/31/18 at 11:30 Acetylcysteine (Mucomyst) 3 ml Q6H RESP THERAPY PRN NEB WHEEZING AND RESP DISTRESS Last administered on 11/02/18 02:43; Admin Dose 3 ML; Start 11/01/18 at 23:00 Hydralazine HCl (Apresoline) 10 mg Q4H PRN IV ELEVATED SYSTOLIC BP Last administered on 11/08/18 03:21; Admin Dose 10 MG; Start 11/02/18 at 00:30 Acetylcysteine (Mucomyst) 1 ml Q6H RESP THERAPY NEB Last administered on 11/14/18 13:37; Admin Dose 1 ML; Start 11/02/18 at 08:00 Insulin Glargine (Lantus) 35 units BID@0800,2000 SC Last administered on 09:19; Admin Dose 35 UNITS; Start 11/05/18 at 20:00 Lactulose (Enulose) 30 gm Q6 PO Last administered on 11/14/18 11:37; Admin Dose 30 GM; Start 11/05/18 at 18:00 Senna (Senokot) 2 tab BID PO Last administered on 11/14/18 09:06; Admin Dose 2 TAB; Start 11/09/18 at 21:00 Metoprolol Tartrate (Lopressor) 25 mg BID PO Last administered on 11/14/18 09:05; Admin Dose 25 MG; Start 11/10/18 at 16:30 Metoprolol Tartrate (Lopressor) 5 mg Q6H PRN IV SVT Last administered on 11/10/18 18:44; Admin Dose 5 MG; Start 11/10/18 at 16:30 Albuterol (Ventolin Hfa) 4 puff Q6H RESP THERAPY PRN INH SHORTNESS OF BREATH; Start 11/10/18 at 17:30 Ipratropium [place] (Atrovent Hfa) 4 puff Q6H RESP THERAPY PRN INH SHORTNESS OF BREATH; Start 11/10/18 at 17:30 Albuterol/ Ipratropium (Duoneb) 3 ml Q6H RESP THERAPY HHN Last administered on 11/14/18 13:37; Admin Dose 3 ML; Start 11/10/18 at 20:30 Metoprolol Tartrate (Lopressor) 5 mg Q6 IV Last administered on 11/14/18 11:37; Admin Dose 5 MG; Start 11/11/18 at 00:00 Lorazepam (Ativan) 1 mg Q4 PRN IV agitation, anxiety Last administered on 11/11/18 22:25; Admin Dose 1 MG; Start 11/11/18 at 00:30 Acetaminophen (Tylenol Supp) 650 mg Q6H PRN [place] fever; Start 11/11/18 at 06:30 Furosemide (Lasix) 40 mg BID DIURETICS IV Last administered on 11/14/18 06:23; Admin Dose 40 MG; Start 11/11/18 at 09:00 Nystatin (Nystatin Susp) 5 ml QHS PO Last administered on 11/13/18 21:00; Admin Dose 5 ML; Start 11/13/18 at 21:00 Potassium Chloride (Potassium Chloride Pwd/Soln) 40 meq BID PO Last administered on 11/14/18 09:07; Admin Dose 40 MEQ; Start 11/13/18 at 21:00 Spironolactone (Aldactone) 50 mg DAILY PO ; Start 11/14/18 at 14:30 LUCIE ELIZABETH MD Nov 14, 2018 14:33
[2018-11-14] MEDS: SPIRONOLACTONE 50 MG TAB PO SCH (14:47)
--- NOTE | 2018-11-14 16:05 | CONS ---
Consult Date/Type/Reason Admit Date/Time Oct 17, 2018 at 14:17 Initial Consult Date 10/18/18 Type of Consult Pulmonary Date/Time of Note DATE: 11/14/18 TIME: 15:36 Subjective Significant improvement. Less shortness of breath today. Awake alert oriented. Objective Vital Signs Date Temp Pulse Resp B/P (MAP) Pulse Ox O2 O2 Flow FiO2 Time Delivery Rate 11/14/18 98.3 88 18 139/77 96 15:33 (97) 11/14/18 60 13:53 11/14/18 Nasal 07:40 Cannula 11/11/18 15.0 17:45 Intake and Output 11/13/18 11/13/18 11/14/18 1515:00 23:00 07:00 IntakeIntake Total 501 ml 100 ml OutputOutput Total 2050 ml 1000 ml 700 ml BalanceBalance -1549 ml -900 ml -700 ml Exam GENERAL: Obese gentleman comfortable on high flow O2 VITAL SIGNS: per chart NECK: Supple. No JVD or lymphadenopathy. CARDIAC EXAM: S1, S2. No added sounds or murmurs. CHEST: Diminished air entry bilaterally ABDOMEN: Soft, nontender. No guarding or rebound. EXTREMITIES: No cyanosis, clubbing NEUROLOGIC: Generalized weakness. Vent Setting Ventilator Support Mode: CPAP Fraction of Inspired Oxygen pe: 60 Positive End Expiratory Pressu: 5.0 Results/Medications Result Diagram: 11/14/18 0910 11/14/18 0910 Results 24 hrs Laboratory Tests Test 11/13/18 17:47 11/13/18 20:27 11/14/18 02:51 11/14/18 06:36 Bedside Glucose 135 218 164 86 Test 11/14/18 09:04 11/14/18 09:10 11/14/18 13:17 Bedside Glucose 103 136 White Blood Count 9.4 Red Blood Count 5.69 Hemoglobin 15.2 Hematocrit 47.7 Mean Corpuscular Volume 83.8 Mean Corpuscular 26.7 L Hemoglobin Mean Corpuscular 31.9 L Hemoglobin Concent Red Cell Distribution 19.9 H Width Platelet Count 221 Mean Platelet Volume 10.0 Immature Granulocytes % 0.600 H Neutrophils % 53.3 Lymphocytes % 27.7 Monocytes % 14.1 H Eosinophils % 3.7 Basophils % 0.6 Nucleated Red Blood 0.0 Cells % Immature Granulocytes # 0.060 H Neutrophils # 5.0 Lymphocytes # 2.6 Monocytes # 1.3 H Eosinophils # 0.4 Basophils # 0.1 Nucleated Red Blood 0.0 Cells # Sodium Level 138 Potassium Level 3.1 L Chloride Level 91 L Carbon Dioxide Level 38 H Anion Gap 9 Blood Urea Nitrogen 12 Creatinine 0.45 L Est Glomerular Filtrat > 60 Rate mL/min Glucose Level 123 # Calcium Level 9.2 Total Bilirubin 1.6 H Direct Bilirubin 0.00 Indirect Bilirubin 1.6 H Aspartate Amino 21 Transf (AST/SGOT) Alanine 18 Aminotransferase (ALT/SG PT) Alkaline Phosphatase 91 Total Protein 6.8 Albumin 3.6 Globulin 3.20 Albumin/Globulin Ratio 1.12 Medications Current Medications IV Flush (NS 3 ml) 3 ml PER PROTOCOL IV ; Start 10/17/18 at 15:30 Nystatin (Nystatin Powder) 1 applic BID TOP Last administered on 11/14/18at 09:20; Admin Dose 1 APPLIC; Start 10/19/18 at 21:00 Enoxaparin Sodium (Lovenox) 60 mg DAILY SC Last administered on 11/14/18at 09:18; Admin Dose 60 MG; Start 10/21/18 at 09:00 Diagnostic Test (Pha) (Accu-Chek) 1 ea 02 XX Last administered on 11/14/18at 02:00; Admin Dose 1 EA; Start 10/21/18 at 02:00 Miscellaneous Information 1 ea NOTE XX ; Start 10/20/18 at 16:30 Glucose (Glutose) 15 gm Q15M PRN PO DECREASED GLUCOSE; Start 10/20/18 at 16:30 Glucose (Glutose) 22.5 gm Q15M PRN PO DECREASED GLUCOSE; Start 10/20/18 at 16:30 Dextrose (D50w Syringe) 25 ml Q15M PRN IV DECREASED GLUCOSE; Start 10/20/18 at 16:30 Dextrose (D50w Syringe) 50 ml Q15M PRN IV DECREASED GLUCOSE; Start 10/20/18 at 16:30 Glucagon (Glucagen) 1 mg Q15M PRN IM DECREASED GLUCOSE; Start 10/20/18 at 16:30 Glucose (Glutose) 15 gm Q15M PRN BUCCAL DECREASED GLUCOSE; Start 10/20/18 at 16:30 IV Flush (NS 10 ml) 10 ml PRN PRN IV IV PROTOCOL; Start 10/20/18 at 16:30 Acetaminophen (Tylenol Tab) 650 mg Q6H PRN PO MILD PAIN(1-3)OR ELEVATED TEMP Last administered on 10/25/18 06:33; Admin Dose 650 MG; Start 10/23/18 at 20:30 Insulin Aspart (Novolog Insulin Pen) NOVOLOG *MODERATE* ALGORI... Q4 SC Last administered on 11/13/18 22:31; Admin Dose 2 UNIT; Start 10/27/18 at 21:00 Lisinopril (Zestril) 20 mg DAILY NGT Last administered on 11/14/18 09:06; Admin Dose 20 MG; Start 10/30/18 at 10:00 Famotidine (Pepcid) 20 mg Q12 GTB Last administered on 11/14/18 09:06; Admin Dose 20 MG; Start 10/31/18 at 21:00 Bisacodyl (Dulcolax Supp) 10 mg Q24H PRN [place] CONSTIPATION Last administered on 11/02/18 09:28; Admin Dose 10 MG; Start 10/31/18 at 11:30 Sodium Biphosphate/ Sodium Phosphate (Fleet Enema) 133 ml Q24H PRN [place] CONSTIPATION Last administered on 11/02/18 09:28; Admin Dose 133 ML; Start 10/31/18 at 11:30 Acetylcysteine (Mucomyst) 3 ml Q6H RESP THERAPY PRN NEB WHEEZING AND RESP DISTRESS Last administered on 11/02/18 02:43; Admin Dose 3 ML; Start 11/01/18 at 23:00 Hydralazine HCl (Apresoline) 10 mg Q4H PRN IV ELEVATED SYSTOLIC BP Last administered on 11/08/18 03:21; Admin Dose 10 MG; Start 11/02/18 at 00:30 Acetylcysteine (Mucomyst) 1 ml Q6H RESP THERAPY NEB Last administered on 11/14/18 13:37; Admin Dose 1 ML; Start 11/02/18 at 08:00 Insulin Glargine (Lantus) 35 units BID@0800,2000 SC Last administered on 11/14/18 09:19; Admin Dose 35 UNITS; Start 11/05/18 at 20:00 Lactulose (Enulose) 30 gm Q6 PO Last administered on 11/14/18 11:37; Admin Dose 30 GM; Start 11/05/18 at 18:00 Senna (Senokot) 2 tab BID PO Last administered on 11/14/18 09:06; Admin Dose 2 TAB; Start 11/09/18 at 21:00 Metoprolol Tartrate (Lopressor) 25 mg BID PO Last administered on 11/14/18 09:05; Admin Dose 25 MG; Start 11/10/18 at 16:30 Metoprolol Tartrate (Lopressor) 5 mg Q6H PRN IV SVT Last administered on 11/10/18 18:44; Admin Dose 5 MG; Start 11/10/18 at 16:30 Albuterol (Ventolin Hfa) 4 puff Q6H RESP THERAPY PRN INH SHORTNESS OF BREATH; Start 11/10/18 at 17:30 Ipratropium [place] (Atrovent Hfa) 4 puff Q6H RESP THERAPY PRN INH SHORTNESS OF BREATH; Start 11/10/18 at 17:30 Albuterol/ Ipratropium (Duoneb) 3 ml Q6H RESP THERAPY HHN Last administered on 11/14/18 13:37; Admin Dose 3 ML; Start 11/10/18 at 20:30 Metoprolol Tartrate (Lopressor) 5 mg Q6 IV Last administered on 11/14/18 11:37; Admin Dose 5 MG; Start 11/11/18 at 00:00 Lorazepam (Ativan) 1 mg Q4 PRN IV agitation, anxiety Last administered on 11/11/18 22:25; Admin Dose 1 MG; Start 11/11/18 at 00:30 Acetaminophen (Tylenol Supp) 650 mg Q6H PRN [place] fever; Start 11/11/18 at 06:30 Furosemide (Lasix) 40 mg BID DIURETICS IV Last administered on 11/14/18 06:23; Admin Dose 40 MG; Start 11/11/18 at 09:00 Nystatin (Nystatin Susp) 5 ml QHS PO Last administered on 11/13/18 21:00; Admin Dose 5 ML; Start 11/13/18 at 21:00 Potassium Chloride (Potassium Chloride Pwd/Soln) 40 meq BID PO Last administered on 11/14/18 09:07; Admin Dose 40 MEQ; Start 11/13/18 at 21:00 Spironolactone (Aldactone) 50 mg DAILY PO Last administered on 11/14/18at 14:47; Admin Dose 50 MG; Start 11/14/18 at 14:30 Assessment/Plan Hospital Course (Demo Recall) Assessment 1. Status post acute on chronic hypoxemic respiratory failure continues high flow O2 2. Likely obesity hypoventilation syndrome with chronic hypercapnia 3. Status post congestive cardiac failure ongoing significant pulmonary edema 4. History of diabetes mellitus Plan 1. Aspiration precautions speech therapy recommendations 2. Continue diuretics if tolerated 3. Physical therapy encourage out of bed 4. Continue DVT GI prophylaxis 5. Decrease O2 as tolerated and for O2 sat of 88%, nocturnal bilevel ventilation As tolerated RENATO JAVIER MD, FCCP Nov 14, 2018 16:05
[2018-11-14] MEDS: NYSTATIN SUSP 5 ML CUP PO SCH (21:04)
[2018-11-15] VITALS (11 sets, daily range): BP systolic 91–116; BP diastolic 55–75; PULSE 82–105; RESP 18–26
[2018-11-15] MEDS: INSULIN ASPART [NOVOLOG] 3 ML PEN SC SCH ×5 (01:00→17:25)
[2018-11-15] MEDS: ALBUTEROL/IPRATROPIUM (NEB) 3 ML AMP HHN SCH ×4 (01:19→19:15)
[2018-11-15] MEDS: ACETYLCYSTEINE 20% 4 ML VIAL NEB SCH ×2 (01:19→09:46)
[2018-11-15] MEDS: ACCU-CHEK XX SCH (02:00)
[2018-11-15] MEDS: METOPROLOL 5 MG INJ IV SCH ×2 (05:59)
[2018-11-15] MEDS: LACTULOSE 30ML CUP PO SCH ×2 (06:00)
[2018-11-15] MEDS: FUROSEMIDE 40 MG INJ IV SCH ×2 (06:00→17:29)
[2018-11-15] MEDS: INSULIN GLARGINE [LANTus] (100 UNITS/ML) SYG SC SCH ×2 (08:33→20:29)
[2018-11-15] MEDS: FAMOTIDINE 20 MG TAB GTB SCH (08:48)
[2018-11-15] MEDS: METOPROLOL 25 MG TAB PO SCH (08:48)
[2018-11-15] MEDS: POTASSIUM CHLORIDE 20 MEQ POWDER FOR ORAL SOLN PO SCH ×2 (08:48→20:21)
[2018-11-15] MEDS: LISINOPRIL 20 MG TAB NGT SCH (08:49)
[2018-11-15] MEDS: SENNA TAB PO SCH ×2 (08:49→20:21)
[2018-11-15] MEDS: SPIRONOLACTONE 50 MG TAB PO SCH (08:49)
[2018-11-15] MEDS: NYSTATIN 30 GM POWDER BTL TOP SCH ×2 (08:52→21:24)
[2018-11-15] MEDS: ENOXAPARIN 60 MG/0.6 ML SYG SC SCH (08:55)
[2018-11-15] MEDS: MAGNESIUM OXIDE 400 MG TAB PO SCH ×2 (12:20→20:21)
--- NOTE | 2018-11-15 13:19 | CONS ---
Consult Date/Type/Reason Admit Date/Time Oct 17, 2018 at 14:17 Initial Consult Date 10/18/18 Type of Consultation: Pulm/CCM Date/Time of Note DATE: 11/15/18 TIME: 13:09 Subjective No events. Remains on high-flow FiO2 Objective Vitals Vital Signs Date Temp Pulse Resp B/P (MAP) Pulse Ox O2 O2 Flow FiO2 Time Delivery Rate 11/15/18 105 12:21 11/15/18 98.6 19 106/75 96 11:25 (85) 11/15/18 65 11:10 11/15/18 Nasal 08:00 Cannula 11/11/18 15.0 17:45 Intake and Output 11/14/18 11/14/18 11/15/18 1515:00 23:00 07:00 IntakeIntake Total 700 ml OutputOutput Total 1500 ml BalanceBalance -800 ml Exam HEENT: Neck supple; no JVD; no LAD CVS: RRR, S1 and S2 CHEST: Coarse rhonchi b/l ABD: Obese, soft, NT, + BS EXT: No c/c; + edema Results/Medications Result Diagram: 11/14/18 0910 11/15/18 0752 Results 24 hrs Laboratory Tests Test 11/14/18 13:17 11/14/18 17:42 11/14/18 19:57 11/15/18 02:19 Bedside Glucose 136 103 93 107 Test 11/15/18 05:19 11/15/18 07:52 11/15/18 08:26 11/15/18 12:22 Bedside Glucose 106 141 125 Sodium Level 140 Potassium Level 3.7 Chloride Level 95 L Carbon Dioxide Level 39 H Anion Gap 6 Blood Urea Nitrogen 12 Creatinine 0.46 L Est Glomerular Filtrat > 60 Rate mL/min Glucose Level 111 Calcium Level 9.3 Magnesium Level 1.6 L Home Meds Reported Medications Hydrochlorothiazide* (Hydrochlorothiazide*) 25 Mg Tab, 25 MG PO DAILY, #30 TAB 10/17/18 Lisinopril* (Lisinopril*) 20 Mg Tablet, 20 MG PO DAILY, #30 TAB 10/17/18 Medications Current Medications IV Flush (NS 3 ml) 3 ml PER PROTOCOL IV ; Start 10/17/18 at 15:30 Nystatin (Nystatin Powder) 1 applic BID TOP Last administered on 11/15/18at 08:52; Admin Dose 1 APPLIC; Start 10/19/18 at 21:00 Enoxaparin Sodium (Lovenox) 60 mg DAILY SC Last administered on 11/15/18 08:55; Admin Dose 60 MG; Start 10/21/18 at 09:00 Diagnostic Test (Pha) (Accu-Chek) 1 ea 02 XX Last administered on 11/14/18at 02:00; Admin Dose 1 EA; Start 10/21/18 at 02:00 Miscellaneous Information 1 ea NOTE XX ; Start 10/20/18 at 16:30 Glucose (Glutose) 15 gm Q15M PRN PO DECREASED GLUCOSE; Start 10/20/18 at 16:30 Glucose (Glutose) 22.5 gm Q15M PRN PO DECREASED GLUCOSE; Start 10/20/18 at 16:30 Dextrose (D50w Syringe) 25 ml Q15M PRN IV DECREASED GLUCOSE; Start 10/20/18 at 16:30 Dextrose (D50w Syringe) 50 ml Q15M PRN IV DECREASED GLUCOSE; Start 10/20/18 at 16:30 Glucagon (Glucagen) 1 mg Q15M PRN IM DECREASED GLUCOSE; Start 10/20/18 at 16:30 Glucose (Glutose) 15 gm Q15M PRN BUCCAL DECREASED GLUCOSE; Start 10/20/18 at 16:30 IV Flush (NS 10 ml) 10 ml PRN PRN IV IV PROTOCOL; Start 10/20/18 at 16:30 Acetaminophen (Tylenol Tab) 650 mg Q6H PRN PO MILD PAIN(1-3)OR ELEVATED TEMP Last administered on 10/25/18at 06:33; Admin Dose 650 MG; Start 10/23/18 at 20:30 Lisinopril (Zestril) 20 mg DAILY NGT Last administered on 11/15/18 08:49; Admin Dose 20 MG; Start 10/30/18 at 10:00 Famotidine (Pepcid) 20 mg Q12 GTB Last administered on 11/15/18 08:48; Admin Dose 20 MG; Start 10/31/18 at 21:00 Bisacodyl (Dulcolax Supp) 10 mg Q24H PRN [place] CONSTIPATION Last administered on 11/02/18at 09:28; Admin Dose 10 MG; Start 10/31/18 at 11:30 Sodium Biphosphate/ Sodium Phosphate (Fleet Enema) 133 ml Q24H PRN [place] CONSTIPATION Last administered on 11/02/18 09:28; Admin Dose 133 ML; Start 10/31/18 at 11:30 Acetylcysteine (Mucomyst) 3 ml Q6H RESP THERAPY PRN NEB WHEEZING AND RESP DIS TRESS Last administered on 11/02/18 02:43; Admin Dose 3 ML; Start 11/01/18 at 23:00 Hydralazine HCl (Apresoline) 10 mg Q4H PRN IV ELEVATED SYSTOLIC BP Last administered on 11/08/18 03:21; Admin Dose 10 MG; Start 11/02/18 at 00:30 Acetylcysteine (Mucomyst) 1 ml Q6H RESP THERAPY NEB Last administered on 11/15/18 09:46; Admin Dose 1 ML; Start 11/02/18 at 08:00 Insulin Glargine (Lantus) 35 units BID@0800,2000 SC Last administered on 11/15/18 08:33; Admin Dose 35 UNITS; Start 11/05/18 at 20:00 Senna (Senokot) 2 tab BID PO Last administered on 11/15/18 08:49; Admin Dose 2 TAB; Start 11/09/18 at 21:00 Albuterol (Ventolin Hfa) 4 puff Q6H RESP THERAPY PRN INH SHORTNESS OF BREATH; Start 11/10/18 at 17:30 Ipratropium [place] (Atrovent Hfa) 4 puff Q6H RESP THERAPY PRN INH SHORTNESS OF BREATH; Start 11/10/18 at 17:30 Albuterol/ Ipratropium (Duoneb) 3 ml Q6H RESP THERAPY HHN Last administered on 11/15/18 09:45; Admin Dose 3 ML; Start 11/10/18 at 20:30 Lorazepam (Ativan) 1 mg Q4 PRN IV agitation, anxiety Last administered on 11/11/18 22:25; Admin Dose 1 MG; Start 11/11/18 at 00:30 Acetaminophen (Tylenol Supp) 650 mg Q6H PRN [place] fever; Start 11/11/18 at 06:30 Furosemide (Lasix) 40 mg BID DIURETICS IV Last administered on 11/15/18 06:00; Admin Dose 40 MG; Start 11/11/18 at 09:00 Nystatin (Nystatin Susp) 5 ml QHS PO Last administered on 11/14/18at 21:04; Admin Dose 5 ML; Start 11/13/18 at 21:00 Potassium Chloride (Potassium Chloride Pwd/Soln) 40 meq BID PO Last administered on 11/15/18at 08:48; Admin Dose 40 MEQ; Start 11/13/18 at 21:00 Spironolactone (Aldactone) 50 mg DAILY PO Last administered on 11/15/18at 08:49; Admin Dose 50 MG; Start 11/14/18 at 14:30 Magnesium Oxide (Mag-Ox 400) 400 mg BID PO Last administered on 11/15/18at 12:20; Admin Dose 400 MG; Start 11/15/18 at 11:00; Stop 11/17/18 at 21:01 Metoprolol Succinate (Toprol Xl) 50 mg DAILY PO ; Start 11/16/18 at 09:00 Insulin Aspart (Novolog Insulin Pen) NOVOLOG *MODERATE* ALGORI... AC LUNCH DINNER [place] ; Start 11/15/18 at 12:30 Assessment/Plan Assessment/Plan (Daily) IMP: 1. Status post acute on chronic hypoxemic respiratory failure 2/2 ARDS 2. Likely obesity hypoventilation syndrome with chronic hypercapnia 3. Status post congestive cardiac failure ongoing significant pulmonary edema 4. History of diabetes mellitus RECS: 1. Nocturnal BiPAP 2. Keep I<O's 3. Physical therapy encourage out of bed 4. Continue DVT GI prophylaxis 5. Decrease O2 as tolerated and for O2 sat of 88%-92% ANGEL MO MD Nov 15, 2018 13:19
--- NOTE | 2018-11-15 14:07 | PN ---
Date/Time of Note Date/Time of Note DATE: 11/15/18 TIME: 18:07 Assessment/Plan Lines/Catheters IV Catheter Type (from Nrsg): Mid Line [place] in Place (from Nrsg): No Assessment/Plan Assessment/Plan Respiratory failure Patient extubated Will monitor respiratory status Subjective 24 Hr Interval Summary Constitutional: no complaints, improved, ambulates, BM, flatus, urine output Pain Control: mild Exam/Review of Systems Vital Signs Vitals Vital Signs Date Temp Pulse Resp B/P (MAP) Pulse Ox O2 O2 Flow FiO2 Time Delivery Rate 11/15/18 105 12:21 11/15/18 98.6 19 106/75 96 11:25 (85) 11/15/18 65 11:10 11/15/18 Nasal 08:00 Cannula 11/11/18 15.0 17:45 Intake and Output 11/14/18 11/14/18 11/15/18 1515:00 23:00 07:00 IntakeIntake Total 700 ml OutputOutput Total 1500 ml BalanceBalance -800 ml Exam Eyes: nl conjunctiva, EOMI, nl lids, nl sclera ENMT: nl external ears & nose, nl lips & teeth, nl nasal mucosa & septum, mu cosa pink and moist Neck: supple, non-tender Respiratory: clear to auscultation, normal air movement Cardiovascular: regular rate and rhythm, nl pulses Gastrointestinal: soft, nl liver, spleen, non-tender Musculoskeletal: nl extremities to inspection, nl gait and stance Results Result Diagram: 11/14/18 0910 11/15/18 0752 KARINA VALADEZ MD Nov 15, 2018 14:07
--- NOTE | 2018-11-15 14:41 | PN ---
Date/Time of Note Date/Time of Note DATE: 11/15/18 TIME: 14:35 Assessment/Plan VTE Prophylaxis Risk score (from Nsg)>0 risk: 5 SCD applied (from Nsg): Yes Pharmacological prophylaxis: heparin Lines/Catheters IV Catheter Type (from Nrsg): Mid Line Urinary Cath still in place: No Assessment/Plan Hospital Course 52 yo male with h/o morbid obesity, OHS, DMII who presents with acute hyperc apneic and hypoxic respiratory failure 2/2 pneumonia/ARDS as well as acute diastolic CHF Acute on chronic hypoxic/hypercapneic respiratory failure 2/2 OHS and acute diastolic CHF: - Continue diuretics. Will add spironolactone for potassium sparing. Closely monitor potassium. - HFNC o2 as needed OHS: - Nocturnal bipap for hypercapnea - Hold sedatives Metabolic alkalosis from volume contraction: - Aggressive KCl repletion. Repleting to K level of 5 given metabolic alkalosis Acute encephelopathy: - Likely delirium from sedation, hopstialization etc. Continue to monitor DMII: - basal/bolus insulin Morbid obesity PT/OT Result Diagram: 11/14/18 0910 11/15/18 0752 Results 24hrs Laboratory Tests Test 11/14/18 17:42 11/14/18 19:57 11/15/18 02:19 11/15/18 05:19 Bedside Glucose 103 93 107 106 Test 11/15/18 07:52 11/15/18 08:26 11/15/18 12:22 11/15/18 13:00 Sodium Level 140 Potassium Level 3.7 Chloride Level 95 L Carbon Dioxide 39 H Level Anion Gap 6 Blood Urea 12 Nitrogen Creatinine 0.46 L Est Glomerular > 60 Filtrat Rate mL/min Glucose Level 111 Calcium Level 9.3 Magnesium Level 1.6 L Bedside Glucose 141 125 Blood Gas Specimen Blood arterial Source Arterial Blood 11/15/2018 1:35:51 Date Drawn PM Arterial Blood pH 7.498 H (Temp corrected) Arterial Blood 45.0 pCO2 (Temp correct) Arterial Blood pO2 46.8 *L (Temp corrected) Arterial Blood 34.1 H HCO3 Arterial Blood 9.6 H Base Excess Arterial Blood 84.7 L Oxygen Saturation Danilo Test N/A Arterial Blood Gas LB Puncture Site Arterial 1.4 Blood Carboxyhemog lobin Arterial Blood 0.2 Methemoglobin Blood Gas A-a O2 49.0 H Differential Oxyhemoglobin 83.3 L Percent Blood Gas 37.0 Temperature Blood Gas Modality ROOM AIR FiO2 21.0 Blood Gas Critical Samantha ROSADO RN Value Read Back Blood Gas Notified Nicholas Whom Blood Gas Notified 11/15/2018 1:50:30 Time PM Subjective 24 Hr Interval Summary Free Text/Dictation Continues to improved Now able to get out of bed to chair Hypoxic on room air with ABG showing PO2 of 46 Exam/Review of Systems Exam Vitals Vital Signs Date Temp Pulse Resp B/P (MAP) Pulse Ox O2 O2 Flow FiO2 Time Delivery Rate 11/15/18 105 12:21 11/15/18 98.6 19 106/75 96 11:25 (85) 11/15/18 65 11:10 11/15/18 Nasal 08:00 Cannula 11/11/18 15.0 17:45 Intake and Output 11/14/18 11/14/18 11/15/18 1515:00 23:00 07:00 IntakeIntake Total 700 ml OutputOutput Total 1500 ml BalanceBalance -800 ml Exam Delirium resolving + JVD RRR Lungs clear Morbid obese abdomen w pannus Ext with resolved edema, venous stasis changes Results Results 24hrs Laboratory Tests Test 11/14/18 17:42 11/14/18 19:57 11/15/18 02:19 11/15/18 05:19 Bedside Glucose 103 93 107 106 Test 11/15/18 07:52 11/15/18 08:26 11/15/18 12:22 11/15/18 13:00 Sodium Level 140 Potassium Level 3.7 Chloride Level 95 L Carbon Dioxide 39 H Level Anion Gap 6 Blood Urea 12 Nitrogen Creatinine 0.46 L Est Glomerular > 60 Filtrat Rate mL/min Glucose Level 111 Calcium Level 9.3 Magnesium Level 1.6 L Bedside Glucose 141 125 Blood Gas Specimen Blood arterial Source Arterial Blood 11/15/2018 1:35:51 Date Drawn PM Arterial Blood pH 7.498 H (Temp corrected) Arterial Blood 45.0 pCO2 (Temp correct) Arterial Blood pO2 46.8 *L (Temp corrected) Arterial Blood 34.1 H HCO3 Arterial Blood 9.6 H Base Excess Arterial Blood 84.7 L Oxygen Saturation Danilo Test N/A Arterial Blood Gas LB Puncture Site Arterial 1.4 Blood Carboxyhemog lobin Arterial Blood 0.2 Methemoglobin Blood Gas A-a O2 49.0 H Differential Oxyhemoglobin 83.3 L Percent Blood Gas 37.0 Temperature Blood Gas Modality ROOM AIR FiO2 21.0 Blood Gas Critical Samantha ROSADO RN Value Read Back Blood Gas Notified Nicholas Jensen Blood Gas Notified 11/15/2018 1:50:30 Time PM Medications Medication Current Medications IV Flush (NS 3 ml) 3 ml PER PROTOCOL IV ; Start 10/17/18 at 15:30 Nystatin (Nystatin Powder) 1 applic BID TOP Last administered on 11/15/18at 08:52; Admin Dose 1 APPLIC; Start 10/19/18 at 21:00 Enoxaparin Sodium (Lovenox) 60 mg DAILY SC Last administered on 11/15/18at 08:55; Admin Dose 60 MG; Start 10/21/18 at 09:00 Diagnostic Test (Pha) (Accu-Chek) 1 ea 02 XX Last administered on 11/14/18at 02:00; Admin Dose 1 EA; Start 10/21/18 at 02:00 Miscellaneous Information 1 ea NOTE XX ; Start 10/20/18 at 16:30 Glucose (Glutose) 15 gm Q15M PRN PO DECREASED GLUCOSE; Start 10/20/18 at 16:30 Glucose (Glutose) 22.5 gm Q15M PRN PO DECREASED GLUCOSE; Start 10/20/18 at 16:30 Dextrose (D50w Syringe) 25 ml Q15M PRN IV DECREASED GLUCOSE; Start 10/20/18 at 16:30 Dextrose (D50w Syringe) 50 ml Q15M PRN IV DECREASED GLUCOSE; Start 10/20/18 at 16:30 Glucagon (Glucagen) 1 mg Q15M PRN IM DECREASED GLUCOSE; Start 10/20/18 at 16:30 Glucose (Glutose) 15 gm Q15M PRN BUCCAL DECREASED GLUCOSE; Start 10/20/18 at 16:30 IV Flush (NS 10 ml) 10 ml PRN PRN IV IV PROTOCOL; Start 10/20/18 at 16:30 Acetaminophen (Tylenol Tab) 650 mg Q6H PRN PO MILD PAIN(1-3)OR ELEVATED TEMP Last administered on 10/25/18at 06:33; Admin Dose 650 MG; Start 10/23/18 at 20:30 Lisinopril (Zestril) 20 mg DAILY NGT Last administered on 11/15/18 08:49; Admin Dose 20 MG; Start 10/30/18 at 10:00 Famotidine (Pepcid) 20 mg Q12 GTB Last administered on 11/15/18 08:48; Admin Dose 20 MG; Start 10/31/18 at 21:00 Bisacodyl (Dulcolax Supp) 10 mg Q24H PRN [place] CONSTIPATION Last administered on 11/02/18 09:28; Admin Dose 10 MG; Start 10/31/18 at 11:30 Sodium Biphosphate/ Sodium Phosphate (Fleet Enema) 133 ml Q24H PRN [place] CONSTIPATION Last administered on 11/02/18 09:28; Admin Dose 133 ML; Start 10/31/18 at 11:30 Acetylcysteine (Mucomyst) 3 ml Q6H RESP THERAPY PRN NEB WHEEZING AND RESP DISTRESS Last administered on 11/02/18 02:43; Admin Dose 3 ML; Start 11/01/18 at 23:00 Hydralazine HCl (Apresoline) 10 mg Q4H PRN IV ELEVATED SYSTOLIC BP Last administered on 11/08/18 03:21; Admin Dose 10 MG; Start 11/02/18 at 00:30 Acetylcysteine (Mucomyst) 1 ml Q6H RESP THERAPY NEB Last administered on 11/15/18 09:46; Admin Dose 1 ML; Start 11/02/18 at 08:00 Insulin Glargine (Lantus) 35 units BID@0800,2000 SC Last administered on 11/15/18 08:33; Admin Dose 35 UNITS; Start 11/05/18 at 20:00 Senna (Senokot) 2 tab BID PO Last administered on 11/15/18 08:49; Admin Dose 2 TAB; Start 11/09/18 at 21:00 Albuterol (Ventolin Hfa) 4 puff Q6H RESP THERAPY PRN INH SHORTNESS OF BREATH; Start 11/10/18 at 17:30 Ipratropium [place] (Atrovent Hfa) 4 puff Q6H RESP THERAPY PRN INH SHORTNESS OF BREATH; Start 11/10/18 at 17:30 Albuterol/ Ipratropium (Duoneb) 3 ml Q6H RESP THERAPY HHN Last administered on 11/15/18 09:45; Admin Dose 3 ML; Start 11/10/18 at 20:30 Lorazepam (Ativan) 1 mg Q4 PRN IV agitation, anxiety Last administered on 11/11/18 22:25; Admin Dose 1 MG; Start 11/11/18 at 00:30 Acetaminophen (Tylenol Supp) 650 mg Q6H PRN [place] fever; Start 11/11/18 at 06:30 Furosemide (Lasix) 40 mg BID DIURETICS IV Last administered on 11/15/18 06:00; Admin Dose 40 MG; Start 11/11/18 at 09:00 Nystatin (Nystatin Susp) 5 ml QHS PO Last administered on 11/14/18 21:04; Admin Dose 5 ML; Start 11/13/18 at 21:00 Potassium Chloride (Potassium Chloride Pwd/Soln) 40 meq BID PO Last administered on 11/15/18 08:48; Admin Dose 40 MEQ; Start 11/13/18 at 21:00 Spironolactone (Aldactone) 50 mg DAILY PO Last administered on 11/15/18 08:49; Admin Dose 50 MG; Start 11/14/18 at 14:30 Magnesium Oxide (Mag-Ox 400) 400 mg BID PO Last administered on 11/15/18 12:20; Admin Dose 400 MG; Start 11/15/18 at 11:00; Stop 11/17/18 at 21:01 Metoprolol Succinate (Toprol Xl) 50 mg DAILY PO ; Start 11/16/18 at 09:00 Insulin Aspart (Novolog Insulin Pen) NOVOLOG *MODERATE* ALGORI... AC LUNCH DINNER [place] ; Start 11/15/18 at 12:30 LUCIE ELIZABETH MD Nov 15, 2018 14:41
[2018-11-15] MEDS ORDERED: INSULIN ASPART [NOVOLOG] 3 ML PEN SC SCH (17:25)
[2018-11-15] MEDS: MINERAL OIL 240 ML LOT TOP SCH (20:21)
[2018-11-16] VITALS (10 sets, daily range): BP systolic 111–135; BP diastolic 59–93; PULSE 92–106; RESP 14–20
[2018-11-16] MEDS: ALBUTEROL/IPRATROPIUM (NEB) 3 ML AMP HHN SCH ×4 (01:24→19:30)
[2018-11-16] MEDS: FUROSEMIDE 40 MG INJ IV SCH ×2 (06:35→17:22)
[2018-11-16] MEDS: INSULIN ASPART [NOVOLOG] 3 ML PEN SC SCH ×3 (07:50→17:23)
[2018-11-16] MEDS: MAGNESIUM OXIDE 400 MG TAB PO SCH ×2 (08:56→20:57)
[2018-11-16] MEDS: SPIRONOLACTONE 50 MG TAB PO SCH (08:57)
[2018-11-16] MEDS: LISINOPRIL 20 MG TAB NGT SCH (08:57)
[2018-11-16] MEDS: METOPROLOL (XL) 50 MG TAB PO SCH (08:57)
[2018-11-16] MEDS: SENNA TAB PO SCH ×2 (08:57→20:57)
[2018-11-16] MEDS: MINERAL OIL 240 ML LOT TOP SCH (08:58)
[2018-11-16] MEDS: POTASSIUM CHLORIDE 20 MEQ POWDER FOR ORAL SOLN PO SCH ×2 (08:58→20:58)
[2018-11-16] MEDS: NYSTATIN 30 GM POWDER BTL TOP SCH ×2 (08:58→22:33)
[2018-11-16] MEDS: ENOXAPARIN 60 MG/0.6 ML SYG SC SCH (09:13)
[2018-11-16] MEDS: INSULIN GLARGINE [LANTus] (100 UNITS/ML) SYG SC SCH ×2 (09:14→21:02)
--- NOTE | 2018-11-16 13:24 | PN ---
Date/Time of Note Date/Time of Note DATE: 11/16/18 TIME: 13:22 Assessment/Plan VTE Prophylaxis Risk score (from Nsg)>0 risk: 4 SCD applied (from Nsg): Yes Pharmacological prophylaxis: heparin Lines/Catheters IV Catheter Type (from Nrsg): [place] Urinary Cath still in place: No Assessment/Plan Hospital Course 52 yo male with h/o morbid obesity, OHS, DMII who presents with acute hy percapneic and hypoxic respiratory failure 2/2 pneumonia/ARDS as well as acute diastolic CHF Acute on chronic hypoxic/hypercapneic respiratory failure 2/2 OHS and acute diastolic CHF: - Continue diuretics. Will add spironolactone for potassium sparing. Closely monitor potassium. - HFNC o2 as needed OHS: - Nocturnal bipap for hypercapnea - Hold sedatives Metabolic alkalosis from volume contraction: - Aggressive KCl repletion. Repleting to K level of 5 given metabolic alkalosis Acute encephelopathy: - Likely delirium from sedation, hopstialization etc. Continue to monitor DMII: - basal/bolus insulin KEVON: - Resolved Morbid obesity PT/OT Lopez evaluation Result Diagram: 11/14/18 0910 11/16/18 0617 Results 24hrs Laboratory Tests Test 11/15/18 17:22 11/15/18 20:18 11/16/18 02:34 11/16/18 06:17 Bedside Glucose 137 130 141 Sodium Level 137 Potassium Level 4.1 Chloride Level 97 Carbon Dioxide Level 37 H Anion Gap 3 L Blood Urea Nitrogen 17 Creatinine 0.50 L Est Glomerular > 60 Filtrat Rate mL/min Glucose Level 112 Calcium Level 9.0 Magnesium Level 1.6 L Test 11/16/18 08:55 11/16/18 11:47 Bedside Glucose 108 115 Subjective 24 Hr Interval Summary Free Text/Dictation Doing well, up and out of bed to chair Now on 6 L by nasal cannula Continues diuresis Exam/Review of Systems Exam Vitals Vital Signs Date Temp Pulse Resp B/P (MAP) Pulse Ox O2 O2 Flow FiO2 Time Delivery Rate 11/16/18 97 12:48 11/16/18 98.3 17 134/93 94 Nasal 11:44 (107) Cannula 11/16/18 6.0 08:15 11/15/18 65 15:35 Intake and Output 11/15/18 11/15/18 11/16/18 1515:00 23:00 07:00 IntakeIntake Total 700 ml 450 ml OutputOutput Total 800 ml 2 ml BalanceBalance -100 ml 448 ml Exam + JVD Breathing comfortably RRR Clear lungs Peripheral edema resolved Obese belly, soft nt nd Results Results 24hrs Laboratory Tests Test 11/15/18 17:22 11/15/18 20:18 11/16/18 02:34 11/16/18 06:17 Bedside Glucose 137 130 141 Sodium Level 137 Potassium Level 4.1 Chloride Level 97 Carbon Dioxide Level 37 H Anion Gap 3 L Blood Urea Nitrogen 17 Creatinine 0.50 L Est Glomerular > 60 Filtrat Rate mL/min Glucose Level 112 Calcium Level 9.0 Magnesium Level 1.6 L Test 11/16/18 08:55 11/16/18 11:47 Bedside Glucose 108 115 Medications Medication Current Medications IV Flush (NS 3 ml) 3 ml PER PROTOCOL IV ; Start 10/17/18 at 15:30 Nystatin (Nystatin Powder) 1 applic BID TOP Last administered on 11/16/18at 08:58; Admin Dose 1 APPLIC; Start 10/19/18 at 21:00 Enoxaparin Sodium (Lovenox) 60 mg DAILY SC Last administered on 11/16/18at 09:13; Admin Dose 60 MG; Start 10/21/18 at 09:00 Miscellaneous Information 1 ea NOTE XX ; Start 10/20/18 at 16:30 Glucose (Glutose) 15 gm Q15M PRN PO DECREASED GLUCOSE; Start 10/20/18 at 16:30 Glucose (Glutose) 22.5 gm Q15M PRN PO DECREASED GLUCOSE; Start 10/20/18 at 16:30 Dextrose (D50w Syringe) 25 ml Q15M PRN IV DECREASED GLUCOSE; Start 10/20/18 at 16:30 Dextrose (D50w Syringe) 50 ml Q15M PRN IV DECREASED GLUCOSE; Start 10/20/18 at 16:30 Glucagon (Glucagen) 1 mg Q15M PRN IM DECREASED GLUCOSE; Start 10/20/18 at 16:30 Glucose (Glutose) 15 gm Q15M PRN BUCCAL DECREASED GLUCOSE; Start 10/20/18 at 16:30 IV Flush (NS 10 ml) 10 ml PRN PRN IV IV PROTOCOL; Start 10/20/18 at 16:30 Acetaminophen (Tylenol Tab) 650 mg Q6H PRN PO MILD PAIN(1-3)OR ELEVATED TEMP Last administered on 10/25/18 06:33; Admin Dose 650 MG; Start 10/23/18 at 20:30 Lisinopril (Zestril) 20 mg DAILY NGT Last administered on 11/16/18 08:57; Admin Dose 20 MG; Start 10/30/18 at 10:00 Bisacodyl (Dulcolax Supp) 10 mg Q24H PRN [place] CONSTIPATION Last administered on 11/02/18 09:28; Admin Dose 10 MG; Start 10/31/18 at 11:30 Sodium Biphosphate/ Sodium Phosphate (Fleet Enema) 133 ml Q24H PRN [place] CONSTIPATION Last administered on 11/02/18 09:28; Admin Dose 133 ML; Start 10/31/18 at 11:30 Acetylcysteine (Mucomyst) 3 ml Q6H RESP THERAPY PRN NEB WHEEZING AND RESP DISTRESS Last administered on 11/02/18 02:43; Admin Dose 3 ML; Start 11/01/18 at 23:00 Hydralazine HCl (Apresoline) 10 mg Q4H PRN IV ELEVATED SYSTOLIC BP Last administered on 11/08/18 03:21; Admin Dose 10 MG; Start 11/02/18 at 00:30 Insulin Glargine (Lantus) 35 units BID@0800,2000 SC Last administered on 11/16/18 09:14; Admin Dose 35 UNITS; Start 11/05/18 at 20:00 Senna (Senokot) 2 tab BID PO Last administered on 11/16/18 08:57; Admin Dose 2 TAB; Start 11/09/18 at 21:00 Albuterol (Ventolin Hfa) 4 puff Q6H RESP THERAPY PRN INH SHORTNESS OF BREATH; Start 11/10/18 at 17:30 Ipratropium [place] (Atrovent Hfa) 4 puff Q6H RESP THERAPY PRN INH SHORTNESS OF BREATH; Start 11/10/18 at 17:30 Albuterol/ Ipratropium (Duoneb) 3 ml Q6H RESP THERAPY HHN Last administered on 11/16/18 08:02; Admin Dose 3 ML; Start 11/10/18 at 20:30 Lorazepam (Ativan) 1 mg Q4 PRN IV agitation, anxiety Last administered on 11/11/18at 22:25; Admin Dose 1 MG; Start 11/11/18 at 00:30 Acetaminophen (Tylenol Supp) 650 mg Q6H PRN [place] fever; Start 11/11/18 at 06:30 Furosemide (Lasix) 40 mg BID DIURETICS IV Last administered on 11/16/18at 0 6:35; Admin Dose 40 MG; Start 11/11/18 at 09:00 Potassium Chloride (Potassium Chloride Pwd/Soln) 40 meq BID PO Last administered on 11/16/18at 08:58; Admin Dose 40 MEQ; Start 11/13/18 at 21:00 Spironolactone (Aldactone) 50 mg DAILY PO Last administered on 11/16/18 08:57; Admin Dose 50 MG; Start 11/14/18 at 14:30 Magnesium Oxide (Mag-Ox 400) 400 mg BID PO Last administered on 11/16/18 08:56; Admin Dose 400 MG; Start 11/15/18 at 11:00; Stop 11/17/18 at 21:01 Metoprolol Succinate (Toprol Xl) 50 mg DAILY PO Last administered on 11/16/18at 08:57; Admin Dose 50 MG; Start 11/16/18 at 09:00 Mineral Oil (Eucerin Lotion) 1 applic DAILY TOP Last administered on 11/16/18at 08:58; Admin Dose 1 APPLIC; Start 11/15/18 at 17:00 Insulin Aspart (Novolog Insulin Pen) NOVOLOG *MODERATE* ALGORI... AC MEALS SC ; Start 11/16/18 at 07:50 LUCIE ELIZABETH MD Nov 16, 2018 13:24
--- NOTE | 2018-11-16 13:36 | CONS ---
Consult Date/Type/Reason Admit Date/Time Oct 17, 2018 at 14:17 Initial Consult Date 10/18/18 Type of Consultation: Pulm/CCM Date/Time of Note DATE: 11/16/18 TIME: 13:35 Subjective no events. out of bed to a chair. Objective Vitals Vital Signs Date Temp Pulse Resp B/P (MAP) Pulse Ox O2 O2 Flow FiO2 Time Delivery Rate 11/16/18 97 12:48 11/16/18 98.3 17 134/93 94 Nasal 11:44 (107) Cannula 11/16/18 6.0 08:15 11/15/18 65 15:35 Intake and Output 11/15/18 11/15/18 11/16/18 1515:00 23:00 07:00 IntakeIntake Total 700 ml 450 ml OutputOutput Total 800 ml 2 ml BalanceBalance -100 ml 448 ml Exam HEENT: Neck supple; no JVD; no LAD CVS: RRR, S1 and S2 CHEST: Coarse rhonchi b/l ABD: Obese, soft, NT, + BS EXT: No c/c; + edema Results/Medications Result Diagram: 11/14/18 0910 11/16/18 0617 Results 24 hrs Laboratory Tests Test 11/15/18 17:22 11/15/18 20:18 11/16/18 02:34 11/16/18 06:17 Bedside Glucose 137 130 141 Sodium Level 137 Potassium Level 4.1 Chloride Level 97 Carbon Dioxide Level 37 H Anion Gap 3 L Blood Urea Nitrogen 17 Creatinine 0.50 L Est Glomerular > 60 Filtrat Rate mL/min Glucose Level 112 Calcium Level 9.0 Magnesium Level 1.6 L Test 11/16/18 08:55 11/16/18 11:47 Bedside Glucose 108 115 Home Meds Reported Medications Hydrochlorothiazide* (Hydrochlorothiazide*) 25 Mg Tab, 25 MG PO DAILY, #30 TAB 10/17/18 Lisinopril* (Lisinopril*) 20 Mg Tablet, 20 MG PO DAILY, #30 TAB 10/17/18 Medications Current Medications IV Flush (NS 3 ml) 3 ml PER PROTOCOL IV ; Start 10/17/18 at 15:30 Nystatin (Nystatin Powder) 1 applic BID TOP Last administered on 11/16/18at 08:58; Admin Dose 1 APPLIC; Start 10/19/18 at 21:00 Enoxaparin Sodium (Lovenox) 60 mg DAILY SC Last administered on 11/16/18at 09:13; Admin Dose 60 MG; Start 10/21/18 at 09:00 Miscellaneous Information 1 ea NOTE XX ; Start 10/20/18 at 16:30 Glucose (Glutose) 15 gm Q15M PRN PO DECREASED GLUCOSE; Start 10/20/18 at 16:30 Glucose (Glutose) 22.5 gm Q15M PRN PO DECREASED GLUCOSE; Start 10/20/18 at 16:30 Dextrose (D50w Syringe) 25 ml Q15M PRN IV DECREASED GLUCOSE; Start 10/20/18 at 16:30 Dextrose (D50w Syringe) 50 ml Q15M PRN IV DECREASED GLUCOSE; Start 10/20/18 at 16:30 Glucagon (Glucagen) 1 mg Q15M PRN IM DECREASED GLUCOSE; Start 10/20/18 at 16:30 Glucose (Glutose) 15 gm Q15M PRN BUCCAL DECREASED GLUCOSE; Start 10/20/18 at 16:30 IV Flush (NS 10 ml) 10 ml PRN PRN IV IV PROTOCOL; Start 10/20/18 at 16:30 Acetaminophen (Tylenol Tab) 650 mg Q6H PRN PO MILD PAIN(1-3)OR ELEVATED TEMP Last administered on 10/25/18at 06:33; Admin Dose 650 MG; Start 10/23/18 at 20:30 Lisinopril (Zestril) 20 mg DAILY NGT Last administered on 11/16/18at 08:57; Admin Dose 20 MG; Start 10/30/18 at 10:00 Bisacodyl (Dulcolax Supp) [address] [place] CONSTIPATION Last administered on 11/02/18at 09:28; Admin Dose 10 MG; Start 10/31/18 at 11:30 Sodium Biphosphate/ Sodium Phosphate (Fleet Enema) [address] CONSTIPATION Last administered on 11/02/18at 09:28; Admin Dose 133 ML; Start 10/31/18 at 11:30 Acetylcysteine (Mucomyst) 3 ml Q6H RESP THERAPY PRN NEB WHEEZING AND RESP DISTRESS Last administered on 11/02/18at 02:43; Admin Dose 3 ML; Start 11/01/18 at 23:00 Hydralazine HCl (Apresoline) 10 mg Q4H PRN IV ELEVATED SYSTOLIC BP Last administered on 11/08/18 03:21; Admin Dose 10 MG; Start 11/02/18 at 00:30 Insulin Glargine (Lantus) 35 units BID@0800,2000 SC Last administered on 11/16/18 09:14; Admin Dose 35 UNITS; Start 11/05/18 at 20:00 Senna (Senokot) 2 tab BID PO Last administered on 11/16/18 08:57; Admin Dose 2 TAB; Start 11/09/18 at 21:00 Albuterol (Ventolin Hfa) 4 puff Q6H RESP THERAPY PRN INH SHORTNESS OF BREATH; Start 11/10/18 at 17:30 Ipratropium [place] (Atrovent Hfa) 4 puff Q6H RESP THERAPY PRN INH SHORTNESS OF BREATH; Start 11/10/18 at 17:30 Albuterol/ Ipratropium (Duoneb) 3 ml Q6H RESP THERAPY HHN Last administered on 11/16/18 08:02; Admin Dose 3 ML; Start 11/10/18 at 20:30 Lorazepam (Ativan) 1 mg Q4 PRN IV agitation, anxiety Last administered on 11/11/18 22:25; Admin Dose 1 MG; Start 11/11/18 at 00:30 Acetaminophen (Tylenol Supp) [address] fever; Start 11/11/18 at 06:30 Furosemide (Lasix) 40 mg BID DIURETICS IV Last administered on 11/16/18 06:35; Admin Dose 40 MG; Start 11/11/18 at 09:00 Potassium Chloride (Potassium Chloride Pwd/Soln) 40 meq BID PO Last administered on 11/16/18 08:58; Admin Dose 40 MEQ; Start 11/13/18 at 21:00 Spironolactone (Aldactone) 50 mg DAILY PO Last administered on 11/16/18 08:57; Admin Dose 50 MG; Start 11/14/18 at 14:30 Magnesium Oxide (Mag-Ox 400) 400 mg BID PO Last administered on 11/16/18 08:56; Admin Dose 400 MG; Start 11/15/18 at 11:00; Stop 11/17/18 at 21:01 Metoprolol Succinate (Toprol Xl) 50 mg DAILY PO Last administered on 11/16/18at 08:57; Admin Dose 50 MG; Start 11/16/18 at 09:00 Mineral Oil (Eucerin Lotion) 1 applic DAILY TOP Last administered on 11/16/18at 08:58; Admin Dose 1 APPLIC; Start 11/15/18 at 17:00 Insulin Aspart (Novolog Insulin Pen) NOVOLOG *MODERATE* ALGORI... AC MEALS SC ; Start 11/16/18 at 07:50 Assessment/Plan Assessment/Plan (Daily) IMP: 1. Status post acute on chronic hypoxemic respiratory failure 2/2 ARDS 2. Likely obesity hypoventilation syndrome with chronic hypercapnia 3. Status post congestive cardiac failure ongoing significant pulmonary edema 4. History of diabetes mellitus RECS: 1. Nocturnal BiPAP 2. Keep I<O's 3. Physical therapy/OOB 4. DVT/GI prophylaxis 5. Decrease O2 as tolerated to SpO2 of 88%-92% ANGEL MO MD Nov 16, 2018 13:36
[2018-11-17] MEDS: ALBUTEROL/IPRATROPIUM (NEB) 3 ML AMP HHN SCH ×4 (02:29→21:23)
[2018-11-17 05:28] VITALS: BP 121/74; PULSE 92; RESP 17
[2018-11-17] MEDS: FUROSEMIDE 40 MG INJ IV SCH ×2 (05:37→17:52)
[2018-11-17] MEDS: ACETYLCYSTEINE 20% 4 ML VIAL NEB PRN (08:16)
[2018-11-17] MEDS: INSULIN ASPART [NOVOLOG] 3 ML PEN SC SCH ×3 (08:50→17:25)
[2018-11-17] MEDS: SENNA TAB PO SCH ×2 (08:50→20:59)
[2018-11-17] MEDS: LISINOPRIL 20 MG TAB NGT SCH (08:53)
[2018-11-17] MEDS: METOPROLOL (XL) 50 MG TAB PO SCH (08:54)
[2018-11-17] MEDS: POTASSIUM CHLORIDE 20 MEQ POWDER FOR ORAL SOLN PO SCH ×2 (08:56→20:59)
[2018-11-17] MEDS: MAGNESIUM OXIDE 400 MG TAB PO SCH ×2 (08:56→20:59)
[2018-11-17] MEDS: ENOXAPARIN 60 MG/0.6 ML SYG SC SCH (09:01)
[2018-11-17] MEDS: INSULIN GLARGINE [LANTus] (100 UNITS/ML) SYG SC SCH ×2 (09:04→21:04)
[2018-11-17] MEDS: NYSTATIN 30 GM POWDER BTL TOP SCH ×2 (09:05→21:18)
[2018-11-17] MEDS: MINERAL OIL 240 ML LOT TOP SCH (09:05)
--- NOTE | 2018-11-17 11:59 | PN ---
Date/Time of Note Date/Time of Note DATE: 11/17/18 TIME: 11:53 Assessment/Plan VTE Prophylaxis Risk score (from Nsg)>0 risk: 7 Pharmacological prophylaxis: LMWH Lines/Catheters IV Catheter Type (from Nrsg): Mid Line Urinary Cath still in place: No Assessment/Plan Hospital Course 52 yo male with h/o morbid obesity, OHS, DMII who presents with acute hypercapneic and hypoxic respiratory failure 2/2 pneumonia/ARDS as well as acute diastolic CHF Acute on chronic hypoxic/hypercapneic respiratory failure 2/2 OHS and acute diastolic CHF-resolved -Patient required a prolonged ICU stay for ventilatory support, now extubated - Continue diuretics. Will add spironolactone for potassium sparing. Closely monitor potassium. -Continue supplement O2 as needed OHS: - Nocturnal bipap for hypercapnea - Hold sedatives Metabolic alkalosis from volume contraction: - Aggressive KCl repletion. Repleting to K level of 5 given metabolic alkalosis Acute encephalopathy secondary to delirium-resolving DMII: - basal/bolus insulin KEVON: - Resolved Morbid obesity Debility secondary to morbid obesity and prolonged ICU stay -PT/OT -Likely placement in facility Prophylaxis: Lovenox Result Diagram: 11/14/18 0910 11/17/18 0430 Results 24hrs Laboratory Tests Test 11/16/18 17:18 11/16/18 20:55 11/17/18 04:30 11/17/18 08:50 Bedside Glucose 94 102 131 Sodium Level 137 Potassium Level 3.9 Chloride Level 94 L Carbon Dioxide Level 36 H Anion Gap 7 Blood Urea Nitrogen 15 Creatinine 0.51 L Est Glomerular > 60 Filtrat Rate mL/min Glucose Level 116 Calcium Level 9.2 Magnesium Level 1.8 Subjective 24 Hr Interval Summary Constitutional: no complaints Exam/Review of Systems Exam Vitals Vital Signs Date Temp Pulse Resp B/P (MAP) Pulse Ox O2 O2 Flow FiO2 Time Delivery Rate 11/17/18 94 5.0 08:20 11/17/18 97 20 Nasal 08:17 Cannula 11/17/18 121/74 05:28 (90) 11/16/18 98.2 23:20 11/16/18 21 13:56 Intake and Output 11/16/18 11/16/18 11/17/18 1515:00 23:00 07:00 IntakeIntake Total 900 ml 500 ml OutputOutput Total 1600 ml 700 ml BalanceBalance -700 ml -200 ml Constitutional: alert, oriented Respiratory: clear to auscultation Cardiovascular: regular rate and rhythm Gastrointestinal: soft; No distended Musculoskeletal: nl extremities to inspection Results Results 24hrs Laboratory Tests Test 11/16/18 17:18 11/16/18 20:55 11/17/18 04:30 11/17/18 08:50 Bedside Glucose 94 102 131 Sodium Level 137 Potassium Level 3.9 Chloride Level 94 L Carbon Dioxide Level 36 H Anion Gap 7 Blood Urea Nitrogen 15 Creatinine 0.51 L Est Glomerular > 60 Filtrat Rate mL/min Glucose Level 116 Calcium Level 9.2 Magnesium Level 1.8 Medications Medication Current Medications IV Flush (NS 3 ml) 3 ml PER PROTOCOL IV ; Start 10/17/18 at 15:30 Nystatin (Nystatin Powder) 1 applic BID TOP Last administered on 11/17/18at 09:05; Admin Dose 1 APPLIC; Start 10/19/18 at 21:00 Enoxaparin Sodium (Lovenox) 60 mg DAILY SC Last administered on 11/17/18at 09:01; Admin Dose 60 MG; Start 10/21/18 at 09:00 Miscellaneous Information 1 ea NOTE XX ; Start 10/20/18 at 16:30 Glucose (Glutose) 15 gm Q15M PRN PO DECREASED GLUCOSE; Start 10/20/18 at 16:30 Glucose (Glutose) 22.5 gm Q15M PRN PO DECREASED GLUCOSE; Start 10/20/18 at 16: 30 Dextrose (D50w Syringe) 25 ml Q15M PRN IV DECREASED GLUCOSE; Start 10/20/18 at 16:30 Dextrose (D50w Syringe) 50 ml Q15M PRN IV DECREASED GLUCOSE; Start 10/20/18 at 16:30 Glucagon (Glucagen) 1 mg Q15M PRN IM DECREASED GLUCOSE; Start 10/20/18 at 16:30 Glucose (Glutose) 15 gm Q15M PRN BUCCAL DECREASED GLUCOSE; Start 10/20/18 at 16:30 IV Flush (NS 10 ml) 10 ml PRN PRN IV IV PROTOCOL; Start 10/20/18 at 16:30 Acetaminophen (Tylenol Tab) 650 mg Q6H PRN PO MILD PAIN(1-3)OR ELEVATED TEMP Last administered on 10/25/18at 06:33; Admin Dose 650 MG; Start 10/23/18 at 20:30 Lisinopril (Zestril) 20 mg DAILY NGT Last administered on 11/17/18 08:53; Admin Dose 20 MG; Start 10/30/18 at 10:00 Bisacodyl (Dulcolax Supp) 10 mg Q24H PRN [place] CONSTIPATION Last administered on 11/02/18 09:28; Admin Dose 10 MG; Start 10/31/18 at 11:30 Sodium Biphosphate/ Sodium Phosphate (Fleet Enema) 133 ml Q24H PRN [place] CONSTIPATION Last administered on 11/02/18 09:28; Admin Dose 133 ML; Start 10/31/18 at 11:30 Acetylcysteine (Mucomyst) 3 ml Q6H RESP THERAPY PRN NEB WHEEZING AND RESP DISTRESS Last administered on 11/17/18 08:16; Admin Dose 3 ML; Start 11/01/18 at 23:00 Hydralazine HCl (Apresoline) 10 mg Q4H PRN IV ELEVATED SYSTOLIC BP Last administered on 11/08/18 03:21; Admin Dose 10 MG; Start 11/02/18 at 00:30 Insulin Glargine (Lantus) 35 units BID@0800,2000 SC Last administered on 11/17/18 09:04; Admin Dose 35 UNITS; Start 11/05/18 at 20:00 Senna (Senokot) 2 tab BID PO Last administered on 11/16/18 20:57; Admin Dose 2 TAB; Start 11/09/18 at 21:00 Albuterol (Ventolin Hfa) 4 puff Q6H RESP THERAPY PRN INH SHORTNESS OF BREATH; Start 11/10/18 at 17:30 Ipratropium [place] (Atrovent Hfa) 4 puff Q6H RESP THERAPY PRN INH SHORTNESS OF BREATH; Start 11/10/18 at 17:30 Albuterol/ Ipratropium (Duoneb) 3 ml Q6H RESP THERAPY HHN Last administered on 11/17/18 08:15; Admin Dose 3 ML; Start 11/10/18 at 20:30 Lorazepam (Ativan) 1 mg Q4 PRN IV agitation, anxiety Last administered on 11/11/18 22:25; Admin Dose 1 MG; Start 11/11/18 at 00:30 Acetaminophen (Tylenol Supp) 650 mg Q6H PRN [place] fever; Start 11/11/18 at 06:30 Furosemide (Lasix) 40 mg BID DIURETICS IV Last administered on 11/17/18at 05:37; Admin Dose 40 MG; Start 11/11/18 at 09:00 Potassium Chloride (Potassium Chloride Pwd/Soln) 40 meq BID PO Last administered on 11/17/18at 08:56; Admin Dose 40 MEQ; Start 11/13/18 at 21:00 Spironolactone (Aldactone) 50 mg DAILY PO Last administered on 11/16/18at 08:57; Admin Dose 50 MG; Start 11/14/18 at 14:30 Magnesium Oxide (Mag-Ox 400) 400 mg BID PO Last administered on 11/17/18at 08:56; Admin Dose 400 MG; Start 11/15/18 at 11:00; Stop 11/17/18 at 21:01 Metoprolol Succinate (Toprol Xl) 50 mg DAILY PO Last administered on 11/17/18at 08:54; Admin Dose 50 MG; Start 11/16/18 at 09:00 Mineral Oil (Eucerin Lotion) 1 applic DAILY TOP Last administered on 11/17/18at 09:05; Admin Dose 1 APPLIC; Start 11/15/18 at 17:00 Insulin Aspart (Novolog Insulin Pen) NOVOLOG *MODERATE* ALGORI... AC MEALS SC ; Start 11/16/18 at 07:[address] [place] Nov 17, 2018 11:59
[2018-11-17] MEDS: SPIRONOLACTONE 50 MG TAB PO SCH (14:08)
[2018-11-17 14:54] VITALS: BP 117/67; PULSE 87; RESP 18
--- NOTE | 2018-11-17 15:30 | CONS ---
Consult Date/Type/Reason Admit Date/Time Oct 17, 2018 at 14:17 Initial Consult Date 10/18/18 Type of Consult Pulmonary Date/Time of Note DATE: 11/17/18 TIME: 15:29 Subjective Patient comfortable this morning awake alert oriented no respiratory distress. Beginning to ambulate with physical therapy. Objective Vital Signs Date Temp Pulse Resp B/P (MAP) Pulse Ox O2 O2 Flow FiO2 Time Delivery Rate 11/17/18 98.3 87 18 117/67 92 Room Air 14:54 (84) 11/17/18 5.0 08:20 11/16/18 21 13:56 Intake and Output 11/16/18 11/16/18 11/17/18 1515:00 23:00 07:00 IntakeIntake Total 900 ml 500 ml OutputOutput Total 1600 ml 700 ml BalanceBalance -700 ml -200 ml Exam GENERAL: Morbidly obese young gentleman on 2 L nasal cannula VITAL SIGNS: per chart NECK: Supple. No JVD or lymphadenopathy. CARDIAC EXAM: S1, S2. No added sounds or murmurs. CHEST: clear bilaterally, No added sounds, rales or wheezes ABDOMEN: Soft, nontender. No guarding or rebound. EXTREMITIES: No cyanosis, clubbing or edema. NEUROLOGIC: Generalized weakness. No focal deficits. Vent Setting Ventilator Support Mode: CPAP Fraction of Inspired Oxygen pe: 21 Positive End Expiratory Pressu: 5.0 Results/Medications Result Diagram: 11/14/18 0910 11/17/18 0430 Results 24 hrs Laboratory Tests Test 11/16/18 17:18 11/16/18 20:55 11/17/18 04:30 11/17/18 08:50 Bedside Glucose 94 102 131 Sodium Level 137 Potassium Level 3.9 Chloride Level 94 L Carbon Dioxide Level 36 H Anion Gap 7 Blood Urea Nitrogen 15 Creatinine 0.51 L Est Glomerular > 60 Filtrat Rate mL/min Glucose Level 116 Calcium Level 9.2 Magnesium Level 1.8 Test 11/17/18 12:53 Bedside Glucose 171 Medications Current Medications IV Flush (NS 3 ml) 3 ml PER PROTOCOL IV ; Start 10/17/18 at 15:30 Nystatin (Nystatin Powder) 1 applic BID TOP Last administered on 11/17/18at 09:05; Admin Dose 1 APPLIC; Start 10/19/18 at 21:00 Enoxaparin Sodium (Lovenox) 60 mg DAILY SC Last administered on 11/17/18at 09:01; Admin Dose 60 MG; Start 10/21/18 at 09:00 Miscellaneous Information 1 ea NOTE XX ; Start 10/20/18 at 16:30 Glucose (Glutose) 15 gm Q15M PRN PO DECREASED GLUCOSE; Start 10/20/18 at 16:30 Glucose (Glutose) 22.5 gm Q15M PRN PO DECREASED GLUCOSE; Start 10/20/18 at 16:30 Dextrose (D50w Syringe) 25 ml Q15M PRN IV DECREASED GLUCOSE; Start 10/20/18 at 16:30 Dextrose (D50w Syringe) 50 ml Q15M PRN IV DECREASED GLUCOSE; Start 10/20/18 at 16:30 Glucagon (Glucagen) 1 mg Q15M PRN IM DECREASED GLUCOSE; Start 10/20/18 at 16:30 Glucose (Glutose) 15 gm Q15M PRN BUCCAL DECREASED GLUCOSE; Start 10/20/18 at 16:30 IV Flush (NS 10 ml) 10 ml PRN PRN IV IV PROTOCOL; Start 10/20/18 at 16:30 Acetaminophen (Tylenol Tab) 650 mg Q6H PRN PO MILD PAIN(1-3)OR ELEVATED TEMP Last administered on 10/25/18at 06:33; Admin Dose 650 MG; Start 10/23/18 at 20:30 Lisinopril (Zestril) 20 mg DAILY NGT Last administered on 11/17/18at 08:53; Admin Dose 20 MG; Start 10/30/18 at 10:00 Bisacodyl (Dulcolax Supp) 10 mg Q24H PRN [place] CONSTIPATION Last administered on 11/02/18at 09:28; Admin Dose 10 MG; Start 10/31/18 at 11:30 Sodium Biphosphate/ Sodium Phosphate (Fleet Enema) 133 ml Q24H PRN [place] CONSTIPATION Last administered on 11/02/18at 09:28; Admin Dose 133 ML; Start 10/31/18 at 11:30 Acetylcysteine (Mucomyst) 3 ml Q6H RESP THERAPY PRN NEB WHEEZING AND RESP DISTRESS Last administered on 11/17/18at 08:16; Admin Dose 3 ML; Start 11/01/18 at 23:00 Hydralazine HCl (Apresoline) 10 mg Q4H PRN IV ELEVATED SYSTOLIC BP Last administered on 11/08/18 03:21; Admin Dose 10 MG; Start 11/02/18 at 00:30 Insulin Glargine (Lantus) 35 units BID@0800,2000 SC Last administered on 11/17/18 09:04; Admin Dose 35 UNITS; Start 11/05/18 at 20:00 Senna (Senokot) 2 tab BID PO Last administered on 11/16/18 20:57; Admin Dose 2 TAB; Start 11/09/18 at 21:00 Albuterol (Ventolin Hfa) 4 puff Q6H RESP THERAPY PRN INH SHORTNESS OF BREATH; Start 11/10/18 at 17:30 Ipratropium [place] (Atrovent Hfa) 4 puff Q6H RESP THERAPY PRN INH SHORTNESS OF BREATH; Start 11/10/18 at 17:30 Albuterol/ Ipratropium (Duoneb) 3 ml Q6H RESP THERAPY HHN Last administered on 11/17/18 08:15; Admin Dose 3 ML; Start 11/10/18 at 20:30 Lorazepam (Ativan) 1 mg Q4 PRN IV agitation, anxiety Last administered on 11/11/18 22:25; Admin Dose 1 MG; Start 11/11/18 at 00:30 Acetaminophen (Tylenol Supp) 650 mg Q6H PRN [place] fever; Start 11/11/18 at 06:30 Furosemide (Lasix) 40 mg BID DIURETICS IV Last administered on 11/17/18at 05:37; Admin Dose 40 MG; Start 11/11/18 at 09:00 Potassium Chloride (Potassium Chloride Pwd/Soln) 40 meq BID PO Last administered on 11/17/18 08:56; Admin Dose 40 MEQ; Start 11/13/18 at 21:00 Spironolactone (Aldactone) 50 mg DAILY PO Last administered on 11/17/18 14:08; Admin Dose 50 MG; Start 11/14/18 at 14:30 Magnesium Oxide (Mag-Ox 400) 400 mg BID PO Last administered on 11/17/18 08:56; Admin Dose 400 MG; Start 11/15/18 at 11:00; Stop 11/17/18 at 21:01 Metoprolol Succinate (Toprol Xl) 50 mg DAILY PO Last administered on 11/17/18at 08:54; Admin Dose 50 MG; Start 11/16/18 at 09:00 Mineral Oil (Eucerin Lotion) 1 applic DAILY TOP Last administered on 11/17/18at 09:05; Admin Dose 1 APPLIC; Start 11/15/18 at 17:00 Insulin Aspart (Novolog Insulin Pen) NOVOLOG *MODERATE* ALGORI... AC MEALS SC Last administered on 11/17/18at 12:55; Admin Dose 2 UNIT; Start 11/16/18 at 07:50 Assessment/Plan Hospital Course (Demo Recall) IMP: 1. Status post acute on chronic hypoxemic respiratory failure 2/2 ARDS 2. Likely obesity hypoventilation syndrome with chronic hypercapnia 3. Status post congestive cardiac failure ongoing significant pulmonary edema 4. History of diabetes mellitus RECS: 1. Nocturnal BiPAP 2. Keep I<O's 3. Physical therapy/OOB 4. DVT/GI prophylaxis 5. Decrease O2 as tolerated to SpO2 of 88%-92% Consider DC planning to [facility] facility RENATO JAVIER MD, FCCP Nov 17, 2018 15:30
[2018-11-17 20:48] VITALS: BP 106/58; PULSE 89; RESP 18
[2018-11-18 01:41] VITALS: BP 130/71; PULSE 88; RESP 18
[2018-11-18] MEDS: ALBUTEROL/IPRATROPIUM (NEB) 3 ML AMP HHN SCH ×4 (02:33→19:57)
[2018-11-18] MEDS: FUROSEMIDE 40 MG INJ IV SCH ×2 (05:38→17:39)
[2018-11-18 08:47] VITALS: BP 121/58; PULSE 94; RESP 18
[2018-11-18] MEDS: SENNA TAB PO SCH ×2 (08:59→20:33)
[2018-11-18] MEDS: LISINOPRIL 20 MG TAB NGT SCH (09:00)
[2018-11-18] MEDS: INSULIN ASPART [NOVOLOG] 3 ML PEN SC SCH ×3 (09:00→17:25)
[2018-11-18] MEDS: METOPROLOL (XL) 50 MG TAB PO SCH (09:01)
[2018-11-18] MEDS: SPIRONOLACTONE 50 MG TAB PO SCH (09:02)
[2018-11-18] MEDS: POTASSIUM CHLORIDE 20 MEQ POWDER FOR ORAL SOLN PO SCH ×2 (09:03→20:33)
[2018-11-18] MEDS: ENOXAPARIN 60 MG/0.6 ML SYG SC SCH (09:04)
[2018-11-18] MEDS: NYSTATIN 30 GM POWDER BTL TOP SCH ×2 (09:05→20:34)
[2018-11-18] MEDS: MINERAL OIL 240 ML LOT TOP SCH (09:05)
[2018-11-18] MEDS: INSULIN GLARGINE [LANTus] (100 UNITS/ML) SYG SC SCH ×2 (09:10→20:38)
--- NOTE | 2018-11-18 12:31 | CONS ---
Consult Date/Type/Reason Admit Date/Time Oct 17, 2018 at 14:17 Initial Consult Date 10/18/18 Type of Consult Pulmonary Date/Time of Note DATE: 11/18/18 TIME: 12:30 Subjective Patient stable this morning. No new events. Objective Vital Signs Date Temp Pulse Resp B/P (MAP) Pulse Ox O2 O2 Flow FiO2 Time Delivery Rate 11/18/18 97.8 94 18 121/58 96 Room Air 08:47 (79) 11/18/18 5.0 08:45 11/16/18 21 13:56 Intake and Output 11/17/18 11/17/18 11/18/18 1515:00 23:00 07:00 IntakeIntake Total 400 ml 400 ml 800 ml OutputOutput Total 250 ml BalanceBalance 150 ml 400 ml 800 ml Exam GENERAL: Morbidly obese young gentleman on 2 L nasal cannula VITAL SIGNS: per chart NECK: Supple. No JVD or lymphadenopathy. CARDIAC EXAM: S1, S2. No added sounds or murmurs. CHEST: clear bilaterally, No added sounds, rales or wheezes ABDOMEN: Soft, nontender. No guarding or rebound. EXTREMITIES: No cyanosis, clubbing or edema. NEUROLOGIC: Generalized weakness. No focal deficits. Vent Setting Ventilator Support Mode: CPAP Fraction of Inspired Oxygen pe: 21 Positive End Expiratory Pressu: 5.0 Results/Medications Result Diagram: 11/14/18 0910 11/17/18 0430 Results 24 hrs Laboratory Tests Test 11/17/18 12:53 11/17/18 17:50 11/17/18 20:56 11/18/18 08:57 Bedside Glucose 171 112 115 136 Medications Current Medications IV Flush (NS 3 ml) 3 ml PER PROTOCOL IV ; Start 10/17/18 at 15:30 Nystatin (Nystatin Powder) 1 applic BID TOP Last administered on 11/18/18at 09:05; Admin Dose 1 APPLIC; Start 10/19/18 at 21:00 Enoxaparin Sodium (Lovenox) 60 mg DAILY SC Last administered on 11/18/18at 09 :04; Admin Dose 60 MG; Start 10/21/18 at 09:00 Miscellaneous Information 1 ea NOTE XX ; Start 10/20/18 at 16:30 Glucose (Glutose) 15 gm Q15M PRN PO DECREASED GLUCOSE; Start 10/20/18 at 16:30 Glucose (Glutose) 22.5 gm Q15M PRN PO DECREASED GLUCOSE; Start 10/20/18 at 16:30 Dextrose (D50w Syringe) 25 ml Q15M PRN IV DECREASED GLUCOSE; Start 10/20/18 at 16:30 Dextrose (D50w Syringe) 50 ml Q15M PRN IV DECREASED GLUCOSE; Start 10/20/18 at 16:30 Glucagon (Glucagen) 1 mg Q15M PRN IM DECREASED GLUCOSE; Start 10/20/18 at 16:30 Glucose (Glutose) 15 gm Q15M PRN BUCCAL DECREASED GLUCOSE; Start 10/20/18 at 16:30 IV Flush (NS 10 ml) 10 ml PRN PRN IV IV PROTOCOL; Start 10/20/18 at 16:30 Acetaminophen (Tylenol Tab) 650 mg Q6H PRN PO MILD PAIN(1-3)OR ELEVATED TEMP Last administered on 10/25/18 06:33; Admin Dose 650 MG; Start 10/23/18 at 20:30 Lisinopril (Zestril) 20 mg DAILY NGT Last administered on 11/18/18 09:00; Admin Dose 20 MG; Start 10/30/18 at 10:00 Bisacodyl (Dulcolax Supp) 10 mg Q24H PRN [place] CONSTIPATION Last administered on 11/02/18 09:28; Admin Dose 10 MG; Start 10/31/18 at 11:30 Sodium Biphosphate/ Sodium Phosphate (Fleet Enema) 133 ml Q24H PRN [place] CONSTIPATION Last administered on 11/02/18 09:28; Admin Dose 133 ML; Start 10/31/18 at 11:30 Acetylcysteine (Mucomyst) 3 ml Q6H RESP THERAPY PRN NEB WHEEZING AND RESP DISTRESS Last administered on 11/17/18 08:16; Admin Dose 3 ML; Start 11/01/18 at 23:00 Hydralazine HCl (Apresoline) 10 mg Q4H PRN IV ELEVATED SYSTOLIC BP Last administered on 11/08/18 03:21; Admin Dose 10 MG; Start 11/02/18 at 00:30 Insulin Glargine (Lantus) 35 units BID@0800,2000 SC Last administered on 11/18/18 09:10; Admin Dose 35 UNITS; Start 11/05/18 at 20:00 Senna (Senokot) 2 tab BID PO Last administered on 11/18/18 08:59; Admin Dose 2 TAB; Start 11/09/18 at 21:00 Albuterol (Ventolin Hfa) 4 puff Q6H RESP THERAPY PRN INH SHORTNESS OF BREATH; Start 11/10/18 at 17:30 Ipratropium [place] (Atrovent Hfa) 4 puff Q6H RESP THERAPY PRN INH SHORTNESS OF BREATH; Start 11/10/18 at 17:30 Albuterol/ Ipratropium (Duoneb) 3 ml Q6H RESP THERAPY HHN Last administered on 11/18/18 08:13; Admin Dose 3 ML; Start 11/10/18 at 20:30 Lorazepam (Ativan) 1 mg Q4 PRN IV agitation, anxiety Last administered on 11/11/18 22:25; Admin Dose 1 MG; Start 11/11/18 at 00:30 Acetaminophen (Tylenol Supp) 650 mg Q6H PRN [place] fever; Start 11/11/18 at 06:30 Furosemide (Lasix) 40 mg BID DIURETICS IV Last administered on 11/18/18 05:38; Admin Dose 40 MG; Start 11/11/18 at 09:00 Potassium Chloride (Potassium Chloride Pwd/Soln) 40 meq BID PO Last administered on 11/18/18 09:03; Admin Dose 40 MEQ; Start 11/13/18 at 21:00 Spironolactone (Aldactone) 50 mg DAILY PO Last administered on 11/18/18 09:02; Admin Dose 50 MG; Start 11/14/18 at 14:30 Metoprolol Succinate (Toprol Xl) 50 mg DAILY PO Last administered on 11/18/18 09:01; Admin Dose 50 MG; Start 11/16/18 at 09:00 Mineral Oil (Eucerin Lotion) 1 applic DAILY TOP Last administered on 11/18/18 09:05; Admin Dose 1 APPLIC; Start 11/15/18 at 17:00 Insulin Aspart (Novolog Insulin Pen) NOVOLOG *MODERATE* ALGORI... AC MEALS SC Last administered on 11/17/18 12:55; Admin Dose 2 UNIT; Start 11/16/18 at 07:50 Assessment/Plan Hospital Course (Demo Recall) IMP: 1. Status post acute on chronic hypoxemic respiratory failure 2/2 ARDS 2. Likely obesity hypoventilation syndrome with chronic hypercapnia 3. Status post congestive cardiac failure ongoing significant pulmonary edema 4. History of diabetes mellitus RECS: 1. Nocturnal BiPAP 2. Keep I<O's 3. Physical therapy/OOB 4. DVT/GI prophylaxis 5. Decrease O2 as tolerated to SpO2 of 88%-92% Consider DC planning to senior care facility Discharge planning okay from pulmonary standpoint RENATO JAVIER MD, [facility] Nov 18, 2018 12:31
--- NOTE | 2018-11-18 14:42 | PN ---
Date/Time of Note Date/Time of Note DATE: 11/18/18 TIME: 14:36 Assessment/Plan VTE Prophylaxis Risk score (from Nsg)>0 risk: 7 Pharmacological prophylaxis: LMWH Lines/Catheters IV Catheter Type (from Nrsg): [place] Urinary Cath still in place: No Assessment/Plan Hospital Course 52 yo male with h/o morbid obesity, OHS, DMII who presents with acute hypercapneic and hypoxic respiratory failure 2/2 pneumonia/ARDS as well as acute diastolic CHF Acute on chronic hypoxic/hypercapneic respiratory failure 2/2 OHS and acute diastolic CHF-resolved -Patient required a prolonged ICU stay for ventilatory support, now extubated - Continue diuretics. Will add spironolactone for potassium sparing. Closely monitor potassium. -Continue supplement O2 as needed OHS: - Nocturnal bipap for hypercapnea - Hold sedatives Metabolic alkalosis from volume contraction: - Aggressive KCl repletion. 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 nursing facility Result Diagram: 11/14/18 0910 11/17/18 0430 Results 24hrs Laboratory Tests Test 11/17/18 17:50 11/17/18 20:56 11/18/18 08:57 11/18/18 13:11 Bedside Glucose 112 115 136 146 Subjective 24 Hr Interval Summary Constitutional: no complaints Exam/Review of Systems Exam Vitals Vital Signs Date Temp Pulse Resp B/P (MAP) Pulse Ox O2 O2 Flow FiO2 Time Delivery Rate 11/18/18 92 18 94 Nasal 5.0 13:35 Cannula 11/18/18 97.8 121/58 08:47 (79) 11/16/18 21 13:56 Intake and Output 11/17/18 11/17/18 11/18/18 1515:00 23:00 07:00 IntakeIntake Total 400 ml 400 ml 800 ml OutputOutput Total 250 ml BalanceBalance 150 ml 400 ml 800 ml Constitutional: alert, oriented Respiratory: clear to auscultation Cardiovascular: regular rate and rhythm Gastrointestinal: soft; No distended Musculoskeletal: nl extremities to inspection Results Results 24hrs Laboratory Tests Test 11/17/18 17:50 11/17/18 20:56 11/18/18 08:57 11/18/18 13:11 Bedside Glucose 112 115 136 146 Medications Medication Current Medications IV Flush (NS 3 ml) 3 ml PER PROTOCOL IV ; Start 10/17/18 at 15:30 Nystatin (Nystatin Powder) 1 applic BID TOP Last administered on 11/18/18at 09:05; Admin Dose 1 APPLIC; Start 10/19/18 at 21:00 Enoxaparin Sodium (Lovenox) 60 mg DAILY SC Last administered on 11/18/18at 09:04; Admin Dose 60 MG; Start 10/21/18 at 09:00 Miscellaneous Information 1 ea NOTE XX ; Start 10/20/18 at 16:30 Glucose (Glutose) 15 gm Q15M PRN PO DECREASED GLUCOSE; Start 10/20/18 at 16:30 Glucose (Glutose) 22.5 gm Q15M PRN PO DECREASED GLUCOSE; Start 10/20/18 at 16:30 Dextrose (D50w Syringe) 25 ml Q15M PRN IV DECREASED GLUCOSE; Start 10/20/18 at 16:30 Dextrose (D50w Syringe) 50 ml Q15M PRN IV DECREASED GLUCOSE; Start 10/20/18 at 16:30 Glucagon (Glucagen) 1 mg Q15M PRN IM DECREASED GLUCOSE; Start 10/20/18 at 16:30 Glucose (Glutose) 15 gm Q15M PRN BUCCAL DECREASED GLUCOSE; Start 10/20/18 at 16:30 IV Flush (NS 10 ml) 10 ml PRN PRN IV IV PROTOCOL; Start 10/20/18 at 16:30 Acetaminophen (Tylenol Tab) 650 mg Q6H PRN PO MILD PAIN(1-3)OR ELEVATED TEMP Last administered on 10/25/18at 06:33; Admin Dose 650 MG; Start 10/23/18 at 20:30 Lisinopril (Zestril) 20 mg DAILY NGT Last administered on 11/18/18at 09:00; Admin Dose 20 MG; Start 10/30/18 at 10:00 Bisacodyl (Dulcolax Supp) 10 mg Q24H PRN [place] CONSTIPATION Last administered on 11/02/18at 09:28; Admin Dose 10 MG; Start 10/31/18 at 11:30 Sodium Biphosphate/ Sodium Phosphate (Fleet Enema) 133 ml Q24H PRN [place] CONSTIPATION Last administered on 11/02/18 09:28; Admin Dose 133 ML; Start 10/31/18 at 11:30 Acetylcysteine (Mucomyst) 3 ml Q6H RESP THERAPY PRN NEB WHEEZING AND RESP DISTRESS Last administered on 11/17/18 08:16; Admin Dose 3 ML; Start 11/01/18 at 23:00 Hydralazine HCl (Apresoline) 10 mg Q4H PRN IV ELEVATED SYSTOLIC BP Last administered on 11/08/18 03:21; Admin Dose 10 MG; Start 11/02/18 at 00:30 Insulin Glargine (Lantus) 35 units BID@0800,2000 SC Last administered on 11/18/18 09:10; Admin Dose 35 UNITS; Start 11/05/18 at 20:00 Senna (Senokot) 2 tab BID PO Last administered on 11/18/18 08:59; Admin Dose 2 TAB; Start 11/09/18 at 21:00 Albuterol (Ventolin Hfa) 4 puff Q6H RESP THERAPY PRN INH SHORTNESS OF BREATH; Start 11/10/18 at 17:30 Ipratropium [place] (Atrovent Hfa) 4 puff Q6H RESP THERAPY PRN INH SHORTNESS OF BREATH; Start 11/10/18 at 17:30 Albuterol/ Ipratropium (Duoneb) 3 ml Q6H RESP THERAPY HHN Last administered on 11/18/18 13:34; Admin Dose 3 ML; Start 11/10/18 at 20:30 Lorazepam (Ativan) 1 mg Q4 PRN IV agitation, anxiety Last administered on 11/11/18 22:25; Admin Dose 1 MG; Start 11/11/18 at 00:30 Acetaminophen (Tylenol Supp) 650 mg Q6H PRN [place] fever; Start 11/11/18 at 06:30 Furosemide (Lasix) 40 mg BID DIURETICS IV Last administered on 11/18/18 05:38; Admin Dose 40 MG; Start 11/11/18 at 09:00 Potassium Chloride (Potassium Chloride Pwd/Soln) 40 meq BID PO Last administered on 11/18/18 09:03; Admin Dose 40 MEQ; Start 11/13/18 at 21:00 Spironolactone (Aldactone) 50 mg DAILY PO Last administered on 11/18/18 09:02; Admin Dose 50 MG; Start 11/14/18 at 14:30 Metoprolol Succinate (Toprol Xl) 50 mg DAILY PO Last administered on 11/18/18 09:01; Admin Dose 50 MG; Start 11/16/18 at 09:00 Mineral Oil (Eucerin Lotion) 1 applic DAILY TOP Last administered on 11/18/18 09:05; Admin Dose 1 APPLIC; Start 11/15/18 at 17:00 Insulin Aspart (Novolog Insulin Pen) NOVOLOG *MODERATE* ALGORI... AC MEALS SC Last administered on 11/18/18 13:23; Admin Dose 2 UNIT; Start 11/16/18 at 07:[address] [place] Nov 18, 2018 14:42
[2018-11-18 14:49] VITALS: BP 139/70; PULSE 78; RESP 18
[2018-11-18 20:12] VITALS: BP 101/57; PULSE 88; RESP 18
[2018-11-19] MEDS: ALBUTEROL/IPRATROPIUM (NEB) 3 ML AMP HHN SCH ×4 (02:31→19:58)
[2018-11-19] MEDS: FUROSEMIDE 40 MG INJ IV SCH ×2 (05:43→17:17)
[2018-11-19 07:33] VITALS: BP 114/59; PULSE 92; RESP 18; RESP 20
[2018-11-19] MEDS: INSULIN ASPART [NOVOLOG] 3 ML PEN SC SCH ×3 (08:50→17:25)
[2018-11-19] MEDS: SENNA TAB PO SCH ×2 (08:55→20:35)
[2018-11-19] MEDS: SPIRONOLACTONE 50 MG TAB PO SCH (08:56)
[2018-11-19] MEDS: LISINOPRIL 20 MG TAB NGT SCH (08:57)
[2018-11-19] MEDS: POTASSIUM CHLORIDE 20 MEQ POWDER FOR ORAL SOLN PO SCH ×2 (08:57→20:35)
[2018-11-19] MEDS: METOPROLOL (XL) 50 MG TAB PO SCH (08:57)
[2018-11-19] MEDS: INSULIN GLARGINE [LANTus] (100 UNITS/ML) SYG SC SCH ×2 (08:58→20:37)
[2018-11-19] MEDS: MINERAL OIL 240 ML LOT TOP SCH (08:59)
[2018-11-19] MEDS: NYSTATIN 30 GM POWDER BTL TOP SCH ×2 (08:59→20:35)
[2018-11-19] MEDS: ENOXAPARIN 60 MG/0.6 ML SYG SC SCH (08:59)
--- NOTE | 2018-11-19 16:15 | PN ---
Date/Time of Note Date/Time of Note DATE: 11/19/18 TIME: 16:15 Assessment/Plan VTE Prophylaxis Risk score (from Nsg)>0 risk: 7 Pharmacological prophylaxis: LMWH Lines/Catheters Urinary Cath still in place: No Assessment/Plan Hospital Course 52 yo male with h/o morbid obesity, OHS, DMII who presents with acute hypercapneic and hypoxic respiratory failure 2/2 pneumonia/ARDS as well as acute diastolic CHF Acute on chronic hypoxic/hypercapneic respiratory failure 2/2 OHS and acute diastolic CHF-resolved -Patient required a prolonged ICU stay for ventilatory support, now extubated - Continue diuretics. Will add spironolactone for potassium sparing. Closely monitor potassium. -Continue supplement O2 as needed OHS: - Nocturnal bipap for hypercapnea - Hold sedatives Metabolic alkalosis from volume contraction: - Aggressive KCl repletion. 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 a nursing facility Result Diagram: 11/17/18 0430 Results 24hrs Laboratory Tests Test 11/18/18 17:38 11/18/18 20:32 11/19/18 08:50 11/19/18 12:22 Bedside Glucose 132 140 116 136 Subjective 24 Hr Interval Summary Constitutional: no complaints Exam/Review of Systems Exam Vitals Vital Signs Date Temp Pulse Resp B/P (MAP) Pulse Ox O2 O2 Flow FiO2 Time Delivery Rate 11/19/18 91 16 94 Nasal 4.0 13:01 Cannula 11/19/18 97.5 114/59 07:33 (77) 11/16/18 21 13:56 Intake and Output 11/18/18 11/18/18 11/19/18 1414:59 22:59 06:59 IntakeIntake Total 1160 ml 800 ml 300 ml OutputOutput Total 400 ml 300 ml BalanceBalance 1160 ml 400 ml 0 ml Constitutional: alert, oriented Respiratory: clear to auscultation Cardiovascular: regular rate and rhythm Gastrointestinal: soft; No distended Musculoskeletal: nl extremities to inspection Results Results 24hrs Laboratory Tests Test 11/18/18 17:38 11/18/18 20:32 11/19/18 08:50 11/19/18 12:22 Bedside Glucose 132 140 116 136 Medications Medication Current Medications Nystatin (Nystatin Powder) 1 applic BID TOP Last administered on 11/19/18 08:59; Admin Dose 1 APPLIC; Start 10/19/18 at 21:00 Enoxaparin Sodium (Lovenox) 60 mg DAILY SC Last administered on 11/19/18 08:59; Admin Dose 60 MG; Start 10/21/18 at 09:00 Miscellaneous Information 1 ea NOTE XX ; Start 10/20/18 at 16:30 Glucose (Glutose) 15 gm Q15M PRN PO DECREASED GLUCOSE; Start 10/20/18 at 16:30 Glucose (Glutose) 22.5 gm Q15M PRN PO DECREASED GLUCOSE; Start 10/20/18 at 16:30 Dextrose (D50w Syringe) 25 ml Q15M PRN IV DECREASED GLUCOSE; Start 10/20/18 at 16:30 Dextrose (D50w Syringe) 50 ml Q15M PRN IV DECREASED GLUCOSE; Start 10/20/18 at 16:30 Glucagon (Glucagen) 1 mg Q15M PRN IM DECREASED GLUCOSE; Start 10/20/18 at 16:30 Glucose (Glutose) 15 gm Q15M PRN BUCCAL DECREASED GLUCOSE; Start 10/20/18 at 16:30 IV Flush (NS 10 ml) 10 ml PRN PRN IV IV PROTOCOL; Start 10/20/18 at 16:30 Acetaminophen (Tylenol Tab) 650 mg Q6H PRN PO MILD PAIN(1-3)OR ELEVATED TEMP Last administered on 10/25/18at 06:33; Admin Dose 650 MG; Start 10/23/18 at 20:30 Lisinopril (Zestril) 20 mg DAILY NGT Last administered on 11/19/18at 08:57; Admin Dose 20 MG; Start 10/30/18 at 10:00 Bisacodyl (Dulcolax Supp) 10 mg Q24H PRN [place] CONSTIPATION Last administered on 11/02/18at 09:28; Admin Dose 10 MG; Start 10/31/18 at 11:30 Sodium Biphosphate/ Sodium Phosphate (Fleet Enema) 133 ml Q24H PRN [place] CONSTIPATION Last administered on 11/02/18at 09:28; Admin Dose 133 ML; Start 10/31/18 at 11:30 Acetylcysteine (Mucomyst) 3 ml Q6H RESP THERAPY PRN NEB WHEEZING AND RESP DISTRESS Last administered on 11/17/18 08:16; Admin Dose 3 ML; Start 11/01/18 at 23:00 Hydralazine HCl (Apresoline) 10 mg Q4H PRN IV ELEVATED SYSTOLIC BP Last administered on 11/08/18 03:21; Admin Dose 10 MG; Start 11/02/18 at 00:30 Insulin Glargine (Lantus) 35 units BID@0800,2000 SC Last administered on 11/19/18 08:58; Admin Dose 35 UNITS; Start 11/05/18 at 20:00 Senna (Senokot) 2 tab BID PO Last administered on 11/18/18 20:33; Admin Dose 2 TAB; Start 11/09/18 at 21:00 Albuterol (Ventolin Hfa) 4 puff Q6H RESP THERAPY PRN INH SHORTNESS OF BREATH; Start 11/10/18 at 17:30 Ipratropium [place] (Atrovent Hfa) 4 puff Q6H RESP THERAPY PRN INH SHORTNESS OF BREATH; Start 11/10/18 at 17:30 Albuterol/ Ipratropium (Duoneb) 3 ml Q6H RESP THERAPY HHN Last administered on 11/19/18 13:00; Admin Dose 3 ML; Start 11/10/18 at 20:30 Lorazepam (Ativan) 1 mg Q4 PRN IV agitation, anxiety Last administered on 11/11/18 22:25; Admin Dose 1 MG; Start 11/11/18 at 00:30 Acetaminophen (Tylenol Supp) 650 mg Q6H PRN [place] fever; Start 11/11/18 at 06:30 Furosemide (Lasix) 40 mg BID DIURETICS IV Last administered on 11/19/18 05:43 ; Admin Dose 40 MG; Start 11/11/18 at 09:00 Potassium Chloride (Potassium Chloride Pwd/Soln) 40 meq BID PO Last administered on 11/19/18 08:57; Admin Dose 40 MEQ; Start 11/13/18 at 21:00 Spironolactone (Aldactone) 50 mg DAILY PO Last administered on 11/19/18 08:56; Admin Dose 50 MG; Start 11/14/18 at 14:30 Metoprolol Succinate (Toprol Xl) 50 mg DAILY PO Last administered on 11/19/18at 08:57; Admin Dose 50 MG; Start 11/16/18 at 09:00 Mineral Oil (Eucerin Lotion) 1 applic DAILY TOP Last administered on 11/19/18at 08:59; Admin Dose 1 APPLIC; Start 11/15/18 at 17:00 Insulin Aspart (Novolog Insulin Pen) NOVOLOG *MODERATE* ALGORI... AC MEALS SC Last administered on 11/18/18at 13:23; Admin Dose 2 UNIT; Start 11/16/18 at 07:50 Miscellaneous Information (*Order Clarification Bulletin) MEDICATION REQUIRES CLARIFICATI... Q8H XX ; Start 11/18/18 at 21:30; Stop 11/20/18 at 21:29 [address] [place] Nov 19, 2018 16:15
[2018-11-19 20:22] VITALS: BP 92/55; PULSE 88; RESP 16
[2018-11-20] MEDS: ALBUTEROL/IPRATROPIUM (NEB) 3 ML AMP HHN SCH ×4 (02:12→19:51)
[2018-11-20 02:38] VITALS: BP 114/58; PULSE 94; RESP 16
[2018-11-20] MEDS: FUROSEMIDE 40 MG INJ IV SCH ×2 (05:43→17:43)
[2018-11-20 07:21] VITALS: BP 118/68; PULSE 73; RESP 17
[2018-11-20] MEDS: LISINOPRIL 20 MG TAB NGT SCH (08:18)
[2018-11-20] MEDS: SENNA TAB PO SCH ×2 (08:18→21:45)
[2018-11-20] MEDS: POTASSIUM CHLORIDE 20 MEQ POWDER FOR ORAL SOLN PO SCH ×2 (08:18→21:45)
[2018-11-20] MEDS: SPIRONOLACTONE 50 MG TAB PO SCH (08:18)
[2018-11-20] MEDS: METOPROLOL (XL) 50 MG TAB PO SCH (08:19)
[2018-11-20] MEDS: ENOXAPARIN 60 MG/0.6 ML SYG SC SCH (08:20)
[2018-11-20] MEDS: INSULIN GLARGINE [LANTus] (100 UNITS/ML) SYG SC SCH ×2 (08:21→21:47)
[2018-11-20] MEDS: INSULIN ASPART [NOVOLOG] 3 ML PEN SC SCH ×3 (08:22→17:35)
[2018-11-20] MEDS: MINERAL OIL 240 ML LOT TOP SCH (08:26)
[2018-11-20] MEDS: NYSTATIN 30 GM POWDER BTL TOP SCH ×2 (08:26→21:45)
[2018-11-20 14:59] VITALS: BP 97/54; PULSE 92; RESP 18
--- NOTE | 2018-11-20 15:23 | PN ---
Date/Time of Note Date/Time of Note DATE: 11/20/18 TIME: 15:22 Assessment/Plan VTE Prophylaxis Risk score (from Nsg)>0 risk: 2 Pharmacological prophylaxis: LMWH Lines/Catheters IV Catheter Type (from Nrsg): Mid Line Urinary Cath still in place: No Assessment/Plan Hospital Course 52 yo male with h/o morbid obesity, OHS, DMII who presents with acute hypercapneic and hypoxic respiratory failure 2/2 pneumonia/ARDS as well as acute diastolic CHF Acute on chronic hypoxic/hypercapneic respiratory failure 2/2 OHS and acute diastolic CHF-resolved -Patient required a prolonged ICU stay for ventilatory support, now extubated - Continue diuretics. Will add spironolactone for potassium sparing. Closely monitor potassium. -Continue supplement O2 as needed OHS: - Nocturnal bipap for hypercapnea - Hold sedatives Metabolic alkalosis from volume contraction: - Aggressive KCl repletion. 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 Result Diagram: 11/17/18 0430 Results 24hrs Laboratory Tests Test 11/19/18 17:15 11/19/18 20:33 11/20/18 08:16 11/20/18 12:43 Bedside Glucose 147 152 150 149 Subjective 24 Hr Interval Summary Constitutional: no complaints Exam/Review of Systems Exam Vitals Vital Signs Date Temp Pulse Resp B/P (MAP) Pulse Ox O2 O2 Flow FiO2 Time Delivery Rate 11/20/18 97.5 92 18 97/54 (68) 93 Nasal 14:59 Cannula 11/20/18 4.0 14:25 11/16/18 21 13:56 Intake and Output 11/19/18 11/19/18 11/20/18 1515:00 23:00 07:00 IntakeIntake Total 700 ml 240 ml OutputOutput Total 1 ml 500 ml BalanceBalance 699 ml -260 ml Constitutional: alert, oriented Respiratory: clear to auscultation Cardiovascular: regular rate and rhythm Gastrointestinal: soft; No distended Musculoskeletal: nl extremities to inspection Results Results 24hrs Laboratory Tests Test 11/19/18 17:15 11/19/18 20:33 11/20/18 08:16 11/20/18 12:43 Bedside Glucose 147 152 150 149 Medications Medication Current Medications Nystatin (Nystatin Powder) 1 applic BID TOP Last administered on 11/20/18 08:26; Admin Dose 1 APPLIC; Start 10/19/18 at 21:00 Enoxaparin Sodium (Lovenox) 60 mg DAILY SC Last administered on 11/20/18 08:20; Admin Dose 60 MG; Start 10/21/18 at 09:00 Miscellaneous Information 1 ea NOTE XX ; Start 10/20/18 at 16:30 Glucose (Glutose) 15 gm Q15M PRN PO DECREASED GLUCOSE; Start 10/20/18 at 16:30 Glucose (Glutose) 22.5 gm Q15M PRN PO DECREASED GLUCOSE; Start 10/20/18 at 16:30 Dextrose (D50w Syringe) 25 ml Q15M PRN IV DECREASED GLUCOSE; Start 10/20/18 at 16:30 Dextrose (D50w Syringe) 50 ml Q15M PRN IV DECREASED GLUCOSE; Start 10/20/18 at 16:30 Glucagon (Glucagen) 1 mg Q15M PRN IM DECREASED GLUCOSE; Start 10/20/18 at 16:30 Glucose (Glutose) 15 gm Q15M PRN BUCCAL DECREASED GLUCOSE; Start 10/20/18 at 16:30 IV Flush (NS 10 ml) 10 ml PRN PRN IV IV PROTOCOL; Start 10/20/18 at 16:30 Acetaminophen (Tylenol Tab) 650 mg Q6H PRN PO MILD PAIN(1-3)OR ELEVATED TEMP Last administered on 10/25/18at 06:33; Admin Dose 650 MG; Start 10/23/18 at 20:30 Lisinopril (Zestril) 20 mg DAILY NGT Last administered on 11/20/18 08:18; Admin Dose 20 MG; Start 10/30/18 at 10:00 Bisacodyl (Dulcolax Supp) 10 mg Q24H PRN [place] CONSTIPATION Last administered on 11/02/18 09:28; Admin Dose 10 MG; Start 10/31/18 at 11:30 Sodium Biphosphate/ Sodium Phosphate (Fleet Enema) 133 ml Q24H PRN [place] CONSTIPATION Last administered on 1/27/19at 09:28; Admin Dose 133 ML; Start 10/31/18 at 11:30 Acetylcysteine (Mucomyst) 3 ml Q6H RESP THERAPY PRN NEB WHEEZING AND RESP DISTRESS Last administered on 11/17/18 08:16; Admin Dose 3 ML; Start 11/01/18 at 23:00 Hydralazine HCl (Apresoline) 10 mg Q4H PRN IV ELEVATED SYSTOLIC BP Last administered on 11/08/18 03:21; Admin Dose 10 MG; Start 11/02/18 at 00:30 Insulin Glargine (Lantus) 35 units BID@0800,2000 SC Last administered on 11/20/18 08:21; Admin Dose 35 UNITS; Start 11/05/18 at 20:00 Senna (Senokot) 2 tab BID PO Last administered on 11/20/18 08:18; Admin Dose 2 TAB; Start 11/09/18 at 21:00 Albuterol (Ventolin Hfa) 4 puff Q6H RESP THERAPY PRN INH SHORTNESS OF BREATH; Start 11/10/18 at 17:30 Ipratropium [place] (Atrovent Hfa) 4 puff Q6H RESP THERAPY PRN INH SHORTNESS OF BREATH; Start 11/10/18 at 17:30 Albuterol/ Ipratropium (Duoneb) 3 ml Q6H RESP THERAPY HHN Last administered on 11/20/18 14:23; Admin Dose 3 ML; Start 11/10/18 at 20:30 Lorazepam (Ativan) 1 mg Q4 PRN IV agitation, anxiety Last administered on 11/11/18 22:25; Admin Dose 1 MG; Start 11/11/18 at 00:30 Acetaminophen (Tylenol Supp) 650 mg Q6H PRN [place] fever; Start 11/11/18 at 06:30 Furosemide (Lasix) 40 mg BID DIURETICS IV Last administered on 11/20/18 05:43; Admin Dose 40 MG; Start 11/11/18 at 09:00 Potassium Chloride (Potassium Chloride Pwd/Soln) 40 meq BID PO Last administered on 11/20/18 08:18; Admin Dose 40 MEQ; Start 11/13/18 at 21:00 Spironolactone (Aldactone) 50 mg DAILY PO Last administered on 2/14/19at 08:18; Admin Dose 50 MG; Start 11/14/18 at 14:30 Metoprolol Succinate (Toprol Xl) 50 mg DAILY PO Last administered on 11/20/18at 08:19; Admin Dose 50 MG; Start 11/16/18 at 09:00 Mineral Oil (Eucerin Lotion) 1 applic DAILY TOP Last administered on 11/20/18at 08:26; Admin Dose 1 APPLIC; Start 11/15/18 at 17:00 Insulin Aspart (Novolog Insulin Pen) NOVOLOG *MODERATE* ALGORI... AC MEALS SC Last administered on 11/20/18at 12:45; Admin Dose 2 UNIT; Start 11/16/18 at 07:50 [address] [place] Nov 20, 2018 15:23
[2018-11-20 20:30] VITALS: BP 84/49; PULSE 91; RESP 19
[2018-11-20 21:22] VITALS: BP 123/58; PULSE 90; RESP 19
[2018-11-21] VITALS (7 sets, daily range): BP systolic 79–115; BP diastolic 50–68; PULSE 89–106; RESP 18–19
[2018-11-21] MEDS: ALBUTEROL/IPRATROPIUM (NEB) 3 ML AMP HHN SCH ×4 (01:34→20:28)
[2018-11-21] MEDS: FUROSEMIDE 40 MG INJ IV SCH ×2 (05:53→18:00)
[2018-11-21] MEDS: SPIRONOLACTONE 50 MG TAB PO SCH (09:00)
[2018-11-21] MEDS: METOPROLOL (XL) 50 MG TAB PO SCH (09:00)
[2018-11-21] MEDS: SENNA TAB PO SCH ×2 (09:00→20:52)
[2018-11-21] MEDS: LISINOPRIL 20 MG TAB NGT SCH (09:00)
[2018-11-21] MEDS: INSULIN ASPART [NOVOLOG] 3 ML PEN SC SCH ×3 (09:32→17:53)
[2018-11-21] MEDS: INSULIN GLARGINE [LANTus] (100 UNITS/ML) SYG SC SCH ×2 (09:34→20:54)
[2018-11-21] MEDS: ENOXAPARIN 60 MG/0.6 ML SYG SC SCH (10:27)
[2018-11-21] MEDS: NYSTATIN 30 GM POWDER BTL TOP SCH ×2 (10:30→20:54)
[2018-11-21] MEDS: MINERAL OIL 240 ML LOT TOP SCH (10:32)
--- NOTE | 2018-11-21 11:42 | PN ---
Date/Time of Note Date/Time of Note DATE: 11/21/18 TIME: 11:41 Assessment/Plan VTE Prophylaxis Risk score (from Ns)>0 risk: 4 SCD applied (from Ns): Yes Pharmacological prophylaxis: LMWH Lines/Catheters Urinary Cath still in place: No Assessment/Plan Hospital Course 52 yo male with h/o morbid obesity, OHS, DMII who presents with acute hypercapneic and hypoxic respiratory failure 2/2 pneumonia/ARDS as well as acute diastolic CHF Acute on chronic hypoxic/hypercapneic respiratory failure 2/2 OHS and acute diastolic CHF-resolved -Patient required a prolonged ICU stay for ventilatory support, now extubated - Continue diuretics. Will add spironolactone for potassium sparing. Closely monitor potassium. -Continue supplement O2 as needed OHS: - Nocturnal bipap for hypercapnea - Hold sedatives Metabolic alkalosis from volume contraction: - Aggressive KCl repletion. Repleting to K level of 5 given metabolic alkalosis Acute encephalopathy secondary to delirium-resolving DMII: - basal/bolus insulin KEVON: - Resolved Morbid obesity Debility secondary to morbid obesity and prolonged ICU stay -PT/OT -Likely placement in facility Prophylaxis: Lovenox DC planning: assistant import manager to arrange for placement in a nursing facility Result Diagram: 11/21/18 0446 Results 24hrs Laboratory Tests Test 11/20/18 12:43 11/20/18 17:33 11/20/18 21:44 11/21/18 04:46 Bedside Glucose 149 155 136 Sodium Level 136 Potassium Level 5.0 Chloride Level 94 L Carbon Dioxide Level 32 H Anion Gap 10 Blood Urea Nitrogen 20 Creatinine 0.70 Est Glomerular > 60 Filtrat Rate mL/min Glucose Level 148 Calcium Level 9.8 Test 11/21/18 09:12 Bedside Glucose 142 Subjective 24 Hr Interval Summary Constitutional: no complaints Exam/Review of Systems Exam Vitals Vital Signs Date Temp Pulse Resp B/P (MAP) Pulse Ox O2 O2 Flow FiO2 Time Delivery Rate 11/21/18 Nasal 4.0 11:08 Cannula 11/21/18 97.9 95 18 99/54 (69) 97 07:17 Intake and Output 11/20/18 11/20/18 11/21/18 1515:00 23:00 07:00 IntakeIntake Total 480 ml 660 ml OutputOutput Total 550 ml 251 ml BalanceBalance -70 ml 409 ml Constitutional: alert, oriented Respiratory: clear to auscultation Cardiovascular: regular rate and rhythm Gastrointestinal: soft; No distended Musculoskeletal: nl extremities to inspection Results Results 24hrs Laboratory Tests Test 11/20/18 12:43 11/20/18 17:33 11/20/18 21:44 11/21/18 04:46 Bedside Glucose 149 155 136 Sodium Level 136 Potassium Level 5.0 Chloride Level 94 L Carbon Dioxide Level 32 H Anion Gap 10 Blood Urea Nitrogen 20 Creatinine 0.70 Est Glomerular > 60 Filtrat Rate mL/min Glucose Level 148 Calcium Level 9.8 Test 11/21/18 09:12 Bedside Glucose 142 Medications Medication Current Medications Nystatin (Nystatin Powder) 1 applic BID TOP Last administered on 11/21/18at 10:30; Admin Dose 1 APPLIC; Start 10/19/18 at 21:00 Enoxaparin Sodium (Lovenox) 60 mg DAILY SC Last administered on 11/21/18at 10:27; Admin Dose 60 MG; Start 10/21/18 at 09:00 Miscellaneous Information 1 ea NOTE XX ; Start 10/20/18 at 16:30 Glucose (Glutose) 15 gm Q15M PRN PO DECREASED GLUCOSE; Start 10/20/18 at 16:30 Glucose (Glutose) 22.5 gm Q15M PRN PO DECREASED GLUCOSE; Start 10/20/18 at 16:30 Dextrose (D50w Syringe) 25 ml Q15M PRN IV DECREASED GLUCOSE; Start 10/20/18 at 16:30 Dextrose (D50w Syringe) 50 ml Q15M PRN IV DECREASED GLUCOSE; Start 10/20/18 at 16:30 Glucagon (Glucagen) 1 mg Q15M PRN IM DECREASED GLUCOSE; Start 10/20/18 at 16:30 Glucose (Glutose) 15 gm Q15M PRN BUCCAL DECREASED GLUCOSE; Start 10/20/18 at 16:30 IV Flush (NS 10 ml) 10 ml PRN PRN IV IV PROTOCOL; Start 10/20/18 at 16:30 Acetaminophen (Tylenol Tab) 650 mg Q6H PRN PO MILD PAIN(1-3)OR ELEVATED TEMP Last administered on 10/25/18at 06:33; Admin Dose 650 MG; Start 10/23/18 at 20:30 Lisinopril (Zestril) 20 mg DAILY NGT Last administered on 11/20/18 08:18; Admin Dose 20 MG; Start 10/30/18 at 10:00 Bisacodyl (Dulcolax Supp) 10 mg Q24H PRN [place] CONSTIPATION Last administered on 11/02/18 09:28; Admin Dose 10 MG; Start 10/31/18 at 11:30 Sodium Biphosphate/ Sodium Phosphate (Fleet Enema) 133 ml Q24H PRN [place] CONSTIPATION Last administered on 11/02/18 09:28; Admin Dose 133 ML; Start 10/31/18 at 11:30 Acetylcysteine (Mucomyst) 3 ml Q6H RESP THERAPY PRN NEB WHEEZING AND RESP DISTRESS Last administered on 11/17/18 08:16; Admin Dose 3 ML; Start 11/01/18 at 23:00 Hydralazine HCl (Apresoline) 10 mg Q4H PRN IV ELEVATED SYSTOLIC BP Last administered on 11/08/18 03:21; Admin Dose 10 MG; Start 11/02/18 at 00:30 Insulin Glargine (Lantus) 35 units BID@0800,2000 SC Last administered on 11/21/18 09:34; Admin Dose 35 UNITS; Start 11/05/18 at 20:00 Senna (Senokot) 2 tab BID PO Last administered on 11/20/18 21:45; Admin Dose 2 TAB; Start 11/09/18 at 21:00 Albuterol (Ventolin Hfa) 4 puff Q6H RESP THERAPY PRN INH SHORTNESS OF BREATH; Start 11/10/18 at 17:30 Ipratropium [place] (Atrovent Hfa) 4 puff Q6H RESP THERAPY PRN INH SHORTNESS OF BREATH; Start 11/10/18 at 17:30 Albuterol/ Ipratropium (Duoneb) 3 ml Q6H RESP THERAPY HHN Last administered on 11/21/18 01:34; Admin Dose 3 ML; Start 11/10/18 at 20:30 Lorazepam (Ativan) 1 mg Q4 PRN IV agitation, anxiety Last administered on 11/11/18 22:25; Admin Dose 1 MG; Start 11/11/18 at 00:30 Acetaminophen (Tylenol Supp) 650 mg Q6H PRN [place] fever; Start 11/11/18 at 06:30 Furosemide (Lasix) 40 mg BID DIURETICS IV Last administered on 11/21/18 05:53; Admin Dose 40 MG; Start 11/11/18 at 09:00 Spironolactone (Aldactone) 50 mg DAILY PO Last administered on 11/20/18 08:18; Admin Dose 50 MG; Start 11/14/18 at 14:30 Metoprolol Succinate (Toprol Xl) 50 mg DAILY PO Last administered on 11/20/18 08:19; Admin Dose 50 MG; Start 11/16/18 at 09:00 Mineral Oil (Eucerin Lotion) 1 applic DAILY TOP Last administered on 11/21/18 10:32; Admin Dose 1 APPLIC; Start 11/15/18 at 17:00 Insulin Aspart (Novolog Insulin Pen) NOVOLOG *MODERATE* ALGORI... AC MEALS SC Last administered on 11/21/18 09:32; Admin Dose 2 UNIT; Start 11/16/18 at 07:[address] [place] Nov 21, 2018 11:42
[2018-11-22] MEDS: ALBUTEROL/IPRATROPIUM (NEB) 3 ML AMP HHN SCH ×4 (02:07→21:06)
[2018-11-22] MEDS: FUROSEMIDE 40 MG INJ IV SCH ×2 (06:05→18:00)
[2018-11-22 08:03] VITALS: BP 110/68; PULSE 96; RESP 18
[2018-11-22] MEDS: LISINOPRIL 20 MG TAB NGT SCH (09:00)
[2018-11-22] MEDS: INSULIN ASPART [NOVOLOG] 3 ML PEN SC SCH ×3 (09:04→17:25)
[2018-11-22] MEDS: SENNA TAB PO SCH ×2 (09:05→21:39)
[2018-11-22] MEDS: METOPROLOL (XL) 50 MG TAB PO SCH (09:05)
[2018-11-22] MEDS: SPIRONOLACTONE 50 MG TAB PO SCH (09:05)
[2018-11-22] MEDS: MINERAL OIL 240 ML LOT TOP SCH (09:08)
[2018-11-22] MEDS: NYSTATIN 30 GM POWDER BTL TOP SCH ×2 (09:08→21:48)
[2018-11-22] MEDS: ENOXAPARIN 60 MG/0.6 ML SYG SC SCH (09:09)
[2018-11-22] MEDS: INSULIN GLARGINE [LANTus] (100 UNITS/ML) SYG SC SCH ×2 (09:19→21:42)
--- NOTE | 2018-11-22 10:46 | PN ---
Date/Time of Note Date/Time of Note DATE: 11/22/18 TIME: 10:45 Assessment/Plan VTE Prophylaxis Risk score (from Nsg)>0 risk: 1 SCD applied (from Nsg): Yes Pharmacological prophylaxis: LMWH Lines/Catheters IV Catheter Type (from Nrsg): Mid Line Urinary Cath still in place: No Assessment/Plan Hospital Course 52 yo male with h/o morbid obesity, OHS, DMII who presents with acute hypercap neic and hypoxic respiratory failure 2/2 pneumonia/ARDS as well as acute diastolic CHF Acute on chronic hypoxic/hypercapneic respiratory failure 2/2 OHS and acute diastolic CHF-resolved -Patient required a prolonged ICU stay for ventilatory support, now extubated - Continue diuretics. Will add spironolactone for potassium sparing. Closely monitor potassium. -Continue supplement O2 as needed OHS: - Nocturnal bipap for hypercapnea - Hold sedatives Metabolic alkalosis from volume contraction: -Stable Acute encephalopathy secondary to delirium-resolving DMII: - basal/bolus insulin KEVON: - Resolved Morbid obesity Debility secondary to morbid obesity and prolonged ICU stay -PT/OT -Likely placement in facility Prophylaxis: Lovenox DC planning: manager foreign to arrange for placement in a nursing facility Result Diagram: 11/21/18 0446 Results 24hrs Laboratory Tests Test 11/21/18 12:59 11/21/18 17:50 11/21/18 20:48 11/22/18 08:08 Bedside Glucose 162 143 153 141 Subjective 24 Hr Interval Summary Constitutional: no complaints Exam/Review of Systems Exam Vitals Vital Signs Date Temp Pulse Resp B/P (MAP) Pulse Ox O2 O2 Flow FiO2 Time Delivery Rate 11/22/18 92 20 92 Nasal 3.0 08:32 Cannula 11/22/18 98.5 110/68 08:03 (82) Intake and Output 11/21/18 11/21/18 11/22/18 1515:00 23:00 07:00 IntakeIntake Total 1400 ml 750 ml OutputOutput Total 500 ml 800 ml 1200 ml BalanceBalance -500 ml 600 ml -450 ml Constitutional: alert Respiratory: clear to auscultation Cardiovascular: regular rate and rhythm Gastrointestinal: soft; No distended Musculoskeletal: nl extremities to inspection Results Results 24hrs Laboratory Tests Test 11/21/18 12:59 11/21/18 17:50 11/21/18 20:48 11/22/18 08:08 Bedside Glucose 162 143 153 141 Medications Medication Current Medications Nystatin (Nystatin Powder) 1 applic BID TOP Last administered on 11/22/18 09:08; Admin Dose 1 APPLIC; Start 10/19/18 at 21:00 Enoxaparin Sodium (Lovenox) 60 mg DAILY SC Last administered on 11/22/18 09:09; Admin Dose 60 MG; Start 10/21/18 at 09:00 IV Flush (NS 10 ml) 10 ml PRN PRN IV IV PROTOCOL; Start 10/20/18 at 16:30 Acetaminophen (Tylenol Tab) 650 mg Q6H PRN PO MILD PAIN(1-3)OR ELEVATED TEMP Last administered on 10/25/18 06:33; Admin Dose 650 MG; Start 10/23/18 at 20:30 Lisinopril (Zestril) 20 mg DAILY NGT Last administered on 11/22/18 09:00; Admin Dose 20 MG; Start 10/30/18 at 10:00 Bisacodyl (Dulcolax Supp) 10 mg Q24H PRN [place] CONSTIPATION Last administered on 11/02/18 09:28; Admin Dose 10 MG; Start 10/31/18 at 11:30 Sodium Biphosphate/ Sodium Phosphate (Fleet Enema) 133 ml Q24H PRN [place] CONSTIPATION Last administered on 11/02/18 09:28; Admin Dose 133 ML; Start 10/31/18 at 11:30 Acetylcysteine (Mucomyst) 3 ml Q6H RESP THERAPY PRN NEB WHEEZING AND RESP DISTRESS Last administered on 11/17/18 08:16; Admin Dose 3 ML; Start 11/01/18 at 23:00 Hydralazine HCl (Apresoline) 10 mg Q4H PRN IV ELEVATED SYSTOLIC BP Last administered on 11/08/18 03:21; Admin Dose 10 MG; Start 11/02/18 at 00:30 Insulin Glargine (Lantus) 35 units BID@0800,2000 SC Last administered on 11/22/18 09:19; Admin Dose 35 UNITS; Start 11/05/18 at 20:00 Senna (Senokot) 2 tab BID PO Last administered on 11/22/18 09:05; Admin Dose 2 TAB; Start 11/09/18 at 21:00 Albuterol (Ventolin Hfa) 4 puff Q6H RESP THERAPY PRN INH SHORTNESS OF BREATH; Start 11/10/18 at 17:30 Ipratropium [place] (Atrovent Hfa) 4 puff Q6H RESP THERAPY PRN INH SHORTNESS OF BREATH; Start 11/10/18 at 17:30 Albuterol/ Ipratropium (Duoneb) 3 ml Q6H RESP THERAPY HHN Last administered on 11/22/18 08:28; Admin Dose 3 ML; Start 11/10/18 at 20:30 Lorazepam (Ativan) 1 mg Q4 PRN IV agitation, anxiety Last administered on 11/11/18 22:25; Admin Dose 1 MG; Start 11/11/18 at 00:30 Acetaminophen (Tylenol Supp) 650 mg Q6H PRN [place] fever; Start 11/11/18 at 06:30 Furosemide (Lasix) 40 mg BID DIURETICS IV Last administered on 11/22/18 06:05; Admin Dose 40 MG; Start 11/11/18 at 09:00 Spironolactone (Aldactone) 50 mg DAILY PO Last administered on 11/22/18 09:05; Admin Dose 50 MG; Start 11/14/18 at 14:30 Metoprolol Succinate (Toprol Xl) 50 mg DAILY PO Last administered on 11/22/18 09:05; Admin Dose 50 MG; Start 11/16/18 at 09:00 Mineral Oil (Eucerin Lotion) 1 applic DAILY TOP Last administered on 11/22/18 09:08; Admin Dose 1 APPLIC; Start 11/15/18 at 17:00 Insulin Aspart (Novolog Insulin Pen) NOVOLOG *MODERATE* ALGORI... AC MEALS SC Last administered on 11/22/18 09:04; Admin Dose 2 UNIT; Start 11/16/18 at 07:50 [address] [place] Nov 22, 2018 10:46
[2018-11-22 15:17] VITALS: BP 90/53; PULSE 101; RESP 18
[2018-11-22 18:26] VITALS: BP 99/65; PULSE 90; RESP 20
[2018-11-22 19:35] VITALS: BP 96/55; PULSE 93; RESP 20
[2018-11-22] MEDS: [UNRECOGNIZED DRUG - OTHER] XX SCH (21:00)
[2018-11-22] MEDS: ACETYLCYSTEINE 20% 4 ML VIAL NEB PRN (21:06)
[2018-11-23] MEDS: ALBUTEROL/IPRATROPIUM (NEB) 3 ML AMP HHN SCH ×5 (01:47→20:11)
[2018-11-23 02:10] VITALS: BP 90/52; PULSE 100; RESP 20
[2018-11-23] MEDS: [UNRECOGNIZED DRUG - OTHER] XX SCH ×3 (05:00→21:00)
[2018-11-23] MEDS: FUROSEMIDE 40 MG INJ IV SCH ×2 (06:00→17:54)
[2018-11-23 08:30] VITALS: BP 92/56; PULSE 96; RESP 20
[2018-11-23] MEDS: INSULIN ASPART [NOVOLOG] 3 ML PEN SC SCH ×3 (08:43→17:50)
[2018-11-23] MEDS: INSULIN GLARGINE [LANTus] (100 UNITS/ML) SYG SC SCH ×2 (08:43→22:32)
[2018-11-23] MEDS: ENOXAPARIN 60 MG/0.6 ML SYG SC SCH (08:44)
[2018-11-23] MEDS: SPIRONOLACTONE 50 MG TAB PO SCH (08:48)
[2018-11-23] MEDS: SENNA TAB PO SCH ×2 (08:48→22:30)
[2018-11-23] MEDS: METOPROLOL (XL) 50 MG TAB PO SCH (08:49)
[2018-11-23] MEDS: LISINOPRIL 20 MG TAB NGT SCH (08:49)
[2018-11-23] MEDS: MINERAL OIL 240 ML LOT TOP SCH (09:24)
[2018-11-23] MEDS: NYSTATIN 30 GM POWDER BTL TOP SCH ×2 (09:24→22:30)
[2018-11-23 15:03] VITALS: BP 109/65; PULSE 95; RESP 20
--- NOTE | 2018-11-23 16:28 | PN ---
Date/Time of Note Date/Time of Note DATE: 11/23/18 TIME: 16:28 Assessment/Plan VTE Prophylaxis Risk score (from Ns)>0 risk: 5 SCD applied (from Ns): Yes Pharmacological prophylaxis: LMWH (`) Lines/Catheters Urinary Cath still in place: No Assessment/Plan Hospital Course 52 yo male with h/o morbid obesity, OHS, DMII who presents with acute hypercapneic and hypoxic respiratory failure 2/2 pneumonia/ARDS as well as acute diastolic CHF Acute on chronic hypoxic/hypercapneic respiratory failure 2/2 OHS and acute diastolic CHF-resolved -Patient required a prolonged ICU stay for ventilatory support, now extubated - Continue diuretics. Will add spironolactone for potassium sparing. Closely monitor potassium. 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 manager to arrange for placement in a nursing facility Result Diagram: 11/21/18 0446 Results 24hrs Laboratory Tests Test 11/22/18 18:03 11/22/18 21:39 11/23/18 08:39 11/23/18 13:36 Bedside Glucose 127 135 142 121 Subjective 24 Hr Interval Summary Constitutional: no complaints Exam/Review of Systems Exam Vitals Vital Signs Date Temp Pulse Resp B/P (MAP) Pulse Ox O2 O2 Flow FiO2 Time Delivery Rate 11/23/18 98.1 95 20 109/65 93 Nasal 15:03 (80) Cannula 11/23/18 3.0 09:00 Intake and Output 11/22/18 11/22/18 11/23/18 1414:59 22:59 06:59 IntakeIntake Total 800 ml 1680 ml 300 ml OutputOutput Total 600 ml 901 ml 600 ml BalanceBalance 200 ml 779 ml -300 ml Constitutional: alert, oriented Respiratory: clear to auscultation Cardiovascular: regular rate and rhythm Gastrointestinal: soft; No distended Musculoskeletal: nl extremities to inspection Results Results 24hrs Laboratory Tests Test 11/22/18 18:03 11/22/18 21:39 11/23/18 08:39 11/23/18 13:36 Bedside Glucose 127 135 142 121 Medications Medication Current Medications Nystatin (Nystatin Powder) 1 applic BID TOP Last administered on 11/23/18 09:24; Admin Dose 1 APPLIC; Start 10/19/18 at 21:00 Enoxaparin Sodium (Lovenox) 60 mg DAILY SC Last administered on 11/23/18at 0 8:44; Admin Dose 60 MG; Start 10/21/18 at 09:00 IV Flush (NS 10 ml) 10 ml PRN PRN IV IV PROTOCOL; Start 10/20/18 at 16:30 Acetaminophen (Tylenol Tab) 650 mg Q6H PRN PO MILD PAIN(1-3)OR ELEVATED TEMP Last administered on 10/25/18 06:33; Admin Dose 650 MG; Start 10/23/18 at 20:30 Lisinopril (Zestril) 20 mg DAILY NGT Last administered on 11/22/18 09:00; Admin Dose 20 MG; Start 10/30/18 at 10:00 Bisacodyl (Dulcolax Supp) 10 mg Q24H PRN [place] CONSTIPATION Last administered on 11/02/18 09:28; Admin Dose 10 MG; Start 10/31/18 at 11:30 Sodium Biphosphate/ Sodium Phosphate (Fleet Enema) 133 ml Q24H PRN [place] CONSTIPATION Last administered on 11/02/18 09:28; Admin Dose 133 ML; Start 10/31/18 at 11:30 Acetylcysteine (Mucomyst) 3 ml Q6H RESP THERAPY PRN NEB WHEEZING AND RESP DISTRESS Last administered on 11/22/18 21:06; Admin Dose 3 ML; Start 11/01/18 at 23:00 Hydralazine HCl (Apresoline) 10 mg Q4H PRN IV ELEVATED SYSTOLIC BP Last administered on 11/08/18 03:21; Admin Dose 10 MG; Start 11/02/18 at 00:30 Insulin Glargine (Lantus) 35 units BID@0800,2000 SC Last administered on 11/23/18 08:43; Admin Dose 35 UNITS; Start 11/05/18 at 20:00 Senna (Senokot) 2 tab BID PO Last administered on 11/23/18 08:48; Admin Dose 2 TAB; Start 11/09/18 at 21:00 Albuterol (Ventolin Hfa) 4 puff Q6H RESP THERAPY PRN INH SHORTNESS OF BREATH; Start 11/10/18 at 17:30 Ipratropium [place] (Atrovent Hfa) 4 puff Q6H RESP THERAPY PRN INH SHORTNESS OF BREATH; Start 11/10/18 at 17:30 Albuterol/ Ipratropium (Duoneb) 3 ml Q6H RESP THERAPY HHN Last administered on 11/23/18at 07:43; Admin Dose 3 ML; Start 11/10/18 at 20:30 Lorazepam (Ativan) 1 mg Q4 PRN IV agitation, anxiety Last administered on 11/11/18 22:25; Admin Dose 1 MG; Start 11/11/18 at 00:30 Acetaminophen (Tylenol Supp) 650 mg Q6H PRN [place] fever; Start 11/11/18 at 06:30 Furosemide (Lasix) 40 mg BID DIURETICS IV Last administered on 11/22/18at 06:05; Admin Dose 40 MG; Start 11/11/18 at 09:00 Spironolactone (Aldactone) 50 mg DAILY PO Last administered on 11/23/18at 08:48; Admin Dose 50 MG; Start 11/14/18 at 14:30 Metoprolol Succinate (Toprol Xl) 50 mg DAILY PO Last administered on 11/22/18 09:05; Admin Dose 50 MG; Start 11/16/18 at 09:00 Mineral Oil (Eucerin Lotion) 1 applic DAILY TOP Last administered on 11/23/18 09:24; Admin Dose 1 APPLIC; Start 11/15/18 at 17:00 Insulin Aspart (Novolog Insulin Pen) NOVOLOG *MODERATE* ALGORI... AC MEALS SC Last administered on 11/23/18 08:43; Admin Dose 2 UNIT; Start 11/16/18 at 07:50 Miscellaneous Information (*Order Clarification Bulletin) MEDICATION RENEWAL: TYLENOL ... Q8H XX ; Start 11/22/18 at 21:[address] [place] Nov 23, 2018 16:28
[2018-11-23 20:05] VITALS: PULSE 80
[2018-11-23 20:50] VITALS: BP 103/61; PULSE 94; RESP 20
[2018-11-24] MEDS: ALBUTEROL/IPRATROPIUM (NEB) 3 ML AMP HHN SCH ×4 (01:59→20:50)
[2018-11-24 02:41] VITALS: BP 114/71; PULSE 113; RESP 18
[2018-11-24] MEDS: [UNRECOGNIZED DRUG - OTHER] XX SCH ×3 (05:00→21:00)
[2018-11-24] MEDS: FUROSEMIDE 40 MG INJ IV SCH ×2 (05:25→19:15)
[2018-11-24 05:28] VITALS: BP 112/66; PULSE 98
[2018-11-24 08:04] VITALS: BP 113/56; PULSE 99; RESP 19
[2018-11-24] MEDS: SPIRONOLACTONE 50 MG TAB PO SCH (09:00)
[2018-11-24] MEDS: LISINOPRIL 20 MG TAB NGT SCH (09:00)
[2018-11-24] MEDS: METOPROLOL (XL) 50 MG TAB PO SCH (09:00)
[2018-11-24] MEDS: SENNA TAB PO SCH ×2 (09:49→21:55)
[2018-11-24] MEDS: INSULIN GLARGINE [LANTus] (100 UNITS/ML) SYG SC SCH ×2 (09:54→21:55)
[2018-11-24] MEDS: INSULIN ASPART [NOVOLOG] 3 ML PEN SC SCH ×3 (09:55→17:25)
[2018-11-24] MEDS: ENOXAPARIN 60 MG/0.6 ML SYG SC SCH (10:00)
[2018-11-24] MEDS: NYSTATIN 30 GM POWDER BTL TOP SCH ×2 (10:04→21:57)
[2018-11-24] MEDS: MINERAL OIL 240 ML LOT TOP SCH (10:04)
--- NOTE | 2018-11-24 12:05 | PN ---
Date/Time of Note Date/Time of Note DATE: 11/24/18 TIME: 12:04 Assessment/Plan VTE Prophylaxis Risk score (from Nsg)>0 risk: 3 Pharmacological prophylaxis: LMWH Lines/Catheters IV Catheter Type (from Nrsg): Mid Line Urinary Cath still in place: No Assessment/Plan Hospital Course 52 yo male with h/o morbid obesity, OHS, DMII who presents with acute hypercapneic and hypoxic respiratory failure 2/2 pneumonia/ARDS as well as acute diastolic CHF Acute on chronic hypoxic/hypercapneic respiratory failure 2/2 OHS and acute diastolic CHF-resolved -Patient required a prolonged ICU stay for ventilatory support, now extubated - Continue diuretics. Will add spironolactone for potassium sparing. Closely monitor potassium. -Continue supplement O2 as needed OHS: - Nocturnal bipap for hypercapnea - Hold sedatives Metabolic alkalosis from volume contraction: -Stable Acute encephalopathy secondary to delirium-resolving DMII: - basal/bolus insulin KEVON: - Resolved Morbid obesity Debility secondary to morbid obesity and prolonged ICU stay -PT/OT, patient is now ambulating with a walker -Likely placement in facility Prophylaxis: Lovenox DC planning: bilingual branch manager to arrange for placement in a nursing facility, continue PT and ambulation and if patient does become stronger and ambulates further then consider alternative disposition plan Result Diagram: 11/21/18 0446 Results 24hrs Laboratory Tests Test 11/23/18 13:36 11/23/18 17:47 11/23/18 22:22 11/24/18 09:44 Bedside Glucose 121 202 118 177 Subjective 24 Hr Interval Summary Constitutional: no complaints Exam/Review of Systems Exam Vitals Vital Signs Date Temp Pulse Resp B/P (MAP) Pulse Ox O2 O2 Flow FiO2 Time Delivery Rate 11/24/18 97.6 99 19 113/56 92 08:04 (75) 11/24/18 Nasal 3.0 07:46 Cannula Intake and Output 11/23/18 11/23/18 11/24/18 1515:00 23:00 07:00 IntakeIntake Total 1080 ml 580 ml OutputOutput Total 1250 ml 1300 ml 1000 ml BalanceBalance -170 ml -720 ml -1000 ml Constitutional: alert, oriented Respiratory: clear to auscultation Cardiovascular: regular rate and rhythm Gastrointestinal: soft; No distended Musculoskeletal: nl extremities to inspection Results Results 24hrs Laboratory Tests Test 11/23/18 13:36 11/23/18 17:47 11/23/18 22:22 11/24/18 09:44 Bedside Glucose 121 202 118 177 Medications Medication Current Medications Nystatin (Nystatin Powder) 1 applic BID TOP Last administered on 11/24/18 10:04; Admin Dose 1 APPLIC; Start 10/19/18 at 21:00 Enoxaparin Sodium (Lovenox) 60 mg DAILY SC Last administered on 11/24/18 10:00; Admin Dose 60 MG; Start 10/21/18 at 09:00 IV Flush (NS 10 ml) 10 ml PRN PRN IV IV PROTOCOL; Start 10/20/18 at 16:30 Acetaminophen (Tylenol Tab) 650 mg Q6H PRN PO MILD PAIN(1-3)OR ELEVATED TEMP Last administered on 10/25/18 06:33; Admin Dose 650 MG; Start 10/23/18 at 20:30 Lisinopril (Zestril) 20 mg DAILY NGT Last administered on 11/22/18 09:00; Admin Dose 20 MG; Start 10/30/18 at 10:00 Bisacodyl (Dulcolax Supp) 10 mg Q24H PRN [place] CONSTIPATION Last administered on 11/02/18 09:28; Admin Dose 10 MG; Start 10/31/18 at 11:30 Sodium Biphosphate/ Sodium Phosphate (Fleet Enema) 133 ml Q24H PRN [place] CONSTIPATION Last administered on 11/02/18 09:28; Admin Dose 133 ML; Start 10/31/18 at 11:30 Acetylcysteine (Mucomyst) 3 ml Q6H RESP THERAPY PRN NEB WHEEZING AND RESP DISTRESS Last administered on 11/22/18 21:06; Admin Dose 3 ML; Start 11/01/18 at 23:00 Hydralazine HCl (Apresoline) 10 mg Q4H PRN IV ELEVATED SYSTOLIC BP Last administered on 11/08/18 03:21; Admin Dose 10 MG; Start 11/02/18 at 00:30 Insulin Glargine (Lantus) 35 units BID@0800,2000 SC Last administered on 11/24/18 09:54; Admin Dose 35 UNITS; Start 11/05/18 at 20:00 Senna (Senokot) 2 tab BID PO Last administered on 11/24/18 09:49; Admin Dose 2 TAB; Start 11/09/18 at 21:00 Albuterol (Ventolin Hfa) 4 puff Q6H RESP THERAPY PRN INH SHORTNESS OF BREATH; Start 11/10/18 at 17:30 Ipratropium [place] (Atrovent Hfa) 4 puff Q6H RESP THERAPY PRN INH SHORTNESS OF BREATH; Start 11/10/18 at 17:30 Albuterol/ Ipratropium (Duoneb) 3 ml Q6H RESP THERAPY HHN Last administered on 11/24/18 07:35; Admin Dose 3 ML; Start 11/10/18 at 20:30 Lorazepam (Ativan) 1 mg Q4 PRN IV agitation, anxiety Last administered on 11/11/18 22:25; Admin Dose 1 MG; Start 11/11/18 at 00:30 Acetaminophen (Tylenol Supp) 650 mg Q6H PRN [place] fever; Start 11/11/18 at 06:30 Furosemide (Lasix) 40 mg BID DIURETICS IV Last administered on 11/24/18at 05:25; Admin Dose 40 MG; Start 11/11/18 at 09:00 Spironolactone (Aldactone) 50 mg DAILY PO Last administered on 11/23/18 08:48; Admin Dose 50 MG; Start 11/14/18 at 14:30 Metoprolol Succinate (Toprol Xl) 50 mg DAILY PO Last administered on 11/22/18 09:05; Admin Dose 50 MG; Start 11/16/18 at 09:00 Mineral Oil (Eucerin Lotion) 1 applic DAILY TOP Last administered on 11/24/18 10:04; Admin Dose 1 APPLIC; Start 11/15/18 at 17:00 Insulin Aspart (Novolog Insulin Pen) NOVOLOG *MODERATE* ALGORI... AC MEALS SC Last administered on 11/24/18 09:55; Admin Dose 2 UNIT; Start 11/16/18 at 07:50 Miscellaneous Information (*Order Clarification Bulletin) MEDICATION RENEWAL: TYLENOL ... Q8H XX ; Start 11/22/18 at 21:00 [address] [place] Nov 24, 2018 12:05
[2018-11-24 14:39] VITALS: BP 93/52; PULSE 99; RESP 19
[2018-11-24 19:43] VITALS: BP 128/78; PULSE 100; RESP 18
[2018-11-25] VITALS (12 sets, daily range): BP systolic 67–121; BP diastolic 35–85; PULSE 83–107; RESP 17–18
[2018-11-25] MEDS: ALBUTEROL/IPRATROPIUM (NEB) 3 ML AMP HHN SCH ×4 (02:32→20:01)
[2018-11-25] MEDS: [UNRECOGNIZED DRUG - OTHER] XX SCH ×3 (05:00→21:00)
[2018-11-25] MEDS: FUROSEMIDE 40 MG INJ IV SCH (05:34)
[2018-11-25] MEDS: ENOXAPARIN 60 MG/0.6 ML SYG SC SCH (08:53)
[2018-11-25] MEDS: INSULIN GLARGINE [LANTus] (100 UNITS/ML) SYG SC SCH ×2 (08:53→20:15)
[2018-11-25] MEDS: SENNA TAB PO SCH ×2 (08:54→20:14)
[2018-11-25] MEDS: INSULIN ASPART [NOVOLOG] 3 ML PEN SC SCH ×3 (08:54→17:25)
[2018-11-25] MEDS: LISINOPRIL 20 MG TAB NGT SCH (08:55)
[2018-11-25] MEDS: METOPROLOL (XL) 50 MG TAB PO SCH (08:55)
[2018-11-25] MEDS: MINERAL OIL 240 ML LOT TOP SCH (09:00)
--- NOTE | 2018-11-25 10:40 | PN ---
Date/Time of Note Date/Time of Note DATE: 11/25/18 TIME: 10:38 Assessment/Plan VTE Prophylaxis Risk score (from Ns)>0 risk: 3 SCD applied (from Ns): No SCD contraindicated: other Pharmacological prophylaxis: LMWH Lines/Catheters IV Catheter Type (from Nrs): Mid Line Urinary Cath still in place: No Assessment/Plan Hospital Course A/P: 52 yo male with h/o morbid obesity, OHS, DMII who presents with acute hypercapneic and hypoxic respiratory failure 2/2 pneumonia/ARDS as well as acute diastolic CHF Acute on chronic hypoxic/hypercapneic respiratory failure 2/2 OHS and acute diastolic [id number] required a prolonged ICU stay for ventilatory support, now extubated - Continue diuretics,spironolactone for potassium sparing. Closely monitor potassium. 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, continue PT and ambulation and if patient does become stronger and ambulates further then consider alternative disposition plan Result Diagram: 11/21/18 0446 Results 24hrs Laboratory Tests Test 11/24/18 13:07 11/24/18 17:49 11/24/18 21:51 11/25/18 08:49 Bedside Glucose 157 128 138 145 Exam/Review of Systems Exam Vitals Vital Signs Date Temp Pulse Resp B/P (MAP) Pulse Ox O2 O2 Flow FiO2 Time Delivery Rate 11/25/18 92 4.0 09:10 11/25/18 104 20 Nasal 09:10 Cannula 11/25/18 98.6 113/65 08:16 (81) Intake and Output 11/24/18 11/24/18 11/25/18 1515:00 23:00 07:00 IntakeIntake Total 200 ml 850 ml 100 ml OutputOutput Total 500 ml 200 ml 200 ml BalanceBalance -300 ml 650 ml -100 ml Results Results 24hrs Laboratory Tests Test 11/24/18 13:07 11/24/18 17:49 11/24/18 21:51 11/25/18 08:49 Bedside Glucose 157 128 138 145 Medications Medication Current Medications Nystatin (Nystatin Powder) 1 applic BID TOP Last administered on 11/24/18 21:57; Admin Dose 1 APPLIC; Start 10/19/18 at 21:00 Enoxaparin Sodium (Lovenox) 60 mg DAILY SC Last administered on 11/25/18 08:53; Admin Dose 60 MG; Start 10/21/18 at 09:00 IV Flush (NS 10 ml) 10 ml PRN PRN IV IV PROTOCOL; Start 10/20/18 at 16:30 Lisinopril (Zestril) 20 mg DAILY NGT Last administered on 11/25/18 08:55; Admin Dose 20 MG; Start 10/30/18 at 10:00 Bisacodyl (Dulcolax Supp) 10 mg Q24H PRN [place] CONSTIPATION Last administered on 11/02/18 09:28; Admin Dose 10 MG; Start 10/31/18 at 11:30 Sodium Biphosphate/ Sodium Phosphate (Fleet Enema) 133 ml Q24H PRN [place] CONSTIPATION Last administered on 11/02/18 09:28; Admin Dose 133 ML; Start 10/31/18 at 11:30 Acetylcysteine (Mucomyst) 3 ml Q6H RESP THERAPY PRN NEB WHEEZING AND RESP DISTRESS Last administered on 11/22/18 21:06; Admin Dose 3 ML; Start 11/01/18 at 23:00 Hydralazine HCl (Apresoline) 10 mg Q4H PRN IV ELEVATED SYSTOLIC BP Last administered on 11/08/18 03:21; Admin Dose 10 MG; Start 11/02/18 at 00:30 Insulin Glargine (Lantus) 35 units BID@0800,2000 SC Last administered on 11/25/18 08:53; Admin Dose 35 UNITS; Start 11/05/18 at 20:00 Senna (Senokot) 2 tab BID PO Last administered on 11/25/18 08:54; Admin Dose 2 TAB; Start 11/09/18 at 21:00 Albuterol (Ventolin Hfa) 4 puff Q6H RESP THERAPY PRN INH SHORTNESS OF BREATH; Start 11/10/18 at 17:30 Ipratropium [place] (Atrovent Hfa) 4 puff Q6H RESP THERAPY PRN INH SHORTNESS OF BREATH; Start 11/10/18 at 17:30 Albuterol/ Ipratropium (Duoneb) 3 ml Q6H RESP THERAPY HHN Last administered on 11/25/18 09:09; Admin Dose 3 ML; Start 11/10/18 at 20:30 Lorazepam (Ativan) 1 mg Q4 PRN IV agitation, anxiety Last administered on 11/11/18at 22:25; Admin Dose 1 MG; Start 11/11/18 at 00:30 Acetaminophen (Tylenol Supp) 650 mg Q6H PRN [place] fever; Start 11/11/18 at 06:30 Furosemide (Lasix) 40 mg BID DIURETICS IV Last administered on 11/25/18at 05:34; Admin Dose 40 MG; Start 11/11/18 at 09:00 Spironolactone (Aldactone) 50 mg DAILY PO Last administered on 11/23/18at 08:48; Admin Dose 50 MG; Start 11/14/18 at 14:30 Metoprolol Succinate (Toprol Xl) 50 mg DAILY PO Last administered on 11/25/18 08:55; Admin Dose 50 MG; Start 11/16/18 at 09:00 Mineral Oil (Eucerin Lotion) 1 applic DAILY TOP Last administered on 11/24/18at 10:04; Admin Dose 1 APPLIC; Start 11/15/18 at 17:00 Insulin Aspart (Novolog Insulin Pen) NOVOLOG *MODERATE* ALGORI... AC MEALS SC Last administered on 11/25/18at 08:54; Admin Dose 2 UNIT; Start 11/16/18 at 07:50 Miscellaneous Information (*Order Clarification Bulletin) MEDICATION RENEWAL: TYLENOL ... Q8H XX ; Start 11/22/18 at 21:00 SANJAY BABCOCK Nov 25, 2018 10:40
[2018-11-25] MEDS: NYSTATIN 30 GM POWDER BTL TOP SCH ×2 (12:42→20:21)
[2018-11-25] MEDS: SPIRONOLACTONE 50 MG TAB PO SCH (12:52)
[2018-11-26 00:12] VITALS: BP 89/49; PULSE 95; RESP 18
[2018-11-26] MEDS: ALBUTEROL/IPRATROPIUM (NEB) 3 ML AMP HHN SCH ×4 (02:00→21:07)
[2018-11-26] MEDS: [UNRECOGNIZED DRUG - OTHER] XX SCH ×3 (05:00→21:00)
[2018-11-26] MEDS: INSULIN ASPART [NOVOLOG] 3 ML PEN SC SCH ×3 (07:20→17:25)
[2018-11-26] MEDS: INSULIN GLARGINE [LANTus] (100 UNITS/ML) SYG SC SCH ×2 (08:32→20:33)
[2018-11-26] MEDS: SENNA TAB PO SCH ×2 (08:32→20:34)
[2018-11-26] MEDS: ENOXAPARIN 60 MG/0.6 ML SYG SC SCH (08:32)
[2018-11-26 08:50] VITALS: BP 87/50; PULSE 89; RESP 18
[2018-11-26 09:00] VITALS: BP 101/50; PULSE 90
[2018-11-26] MEDS: FUROSEMIDE 40 MG TAB PO SCH (09:00)
[2018-11-26] MEDS: METOPROLOL (XL) 50 MG TAB PO SCH (09:00)
[2018-11-26] MEDS: NYSTATIN 30 GM POWDER BTL TOP SCH ×2 (09:00→20:34)
[2018-11-26] MEDS: MINERAL OIL 240 ML LOT TOP SCH (09:00)
[2018-11-26] MEDS: LISINOPRIL 20 MG TAB NGT SCH (09:00)
[2018-11-26 15:12] VITALS: BP 90/53; PULSE 92; RESP 18
[2018-11-26 15:58] VITALS: BP 108/59
--- NOTE | 2018-11-26 16:19 | PN ---
Date/Time of Note Date/Time of Note DATE: 11/26/18 TIME: 16:13 Assessment/Plan VTE Prophylaxis Risk score (from Ns)>0 risk: 4 SCD applied (from [facility] [place]): No SCD contraindicated: patient refusal Pharmacological prophylaxis: LMWH Lines/Catheters IV Catheter Type (from [facility]): Mid Line Urinary Cath still in place: No Assessment/Plan Assessment/Plan 1. Acute on chronic hypoxic/hypercapneic respiratory failure 2/2 OHS and acute diastolic CHF-resolved - Patient is doing well on room air but due to prolonged ICU stay is deconditioned - Continue diuretics,spironolactone for potassium sparing. Closely monitor potassium. - Continue supplement O2 as needed 2. OHS - BIPAP hs 3. Metabolic alkalosis from volume contraction - Stable, monitor 4. Acute encephalopathy secondary to delirium-resolved - Monitor 5. DM - A1c noted - Continue Lantus and basal/bolus insulin 6. KEVON - Cr bumped up this am - Monitor and hold Lasix and Lisinopril this am 7. Morbid obesity - Counseled on weight cessation 8. Debility secondary to morbid obesity and prolonged ICU stay - PT/OT 9. Disposition - Continue monitoring on Med/Surg - pending placement Result Diagram: 11/26/18 0431 11/26/18 0431 Results 24hrs Laboratory Tests Test 11/25/18 18:04 11/25/18 20:11 11/26/18 04:31 11/26/18 08:27 Bedside Glucose 128 150 127 White Blood Count 9.8 Red Blood Count 5.73 Hemoglobin 15.1 Hematocrit 48.1 Mean Corpuscular 83.9 Volume Mean Corpuscular 26.4 L Hemoglobin Mean Corpuscular 31.4 L Hemoglobin Concent Red Cell 20.8 H Distribution Width Platelet Count 347 # Mean Platelet Volume 9.6 Immature 0.800 H Granulocytes % Neutrophils % 29.6 L Lymphocytes % 51.2 H Monocytes % 13.5 H Eosinophils % 4.3 Basophils % 0.6 Nucleated Red Blood 0.0 Cells % Immature 0.080 H Granulocytes # Neutrophils # 2.9 Lymphocytes # 5.0 H Monocytes # 1.3 H Eosinophils # 0.4 Basophils # 0.1 Nucleated Red Blood 0.0 Cells # Sodium Level 135 Potassium Level 4.4 Chloride Level 88 L Carbon Dioxide Level 32 H Anion Gap 15 H Blood Urea Nitrogen 30 H Creatinine 1.46 H Est Glomerular 51 L Filtrat Rate mL/min Glucose Level 125 Calcium Level 9.6 Phosphorus Level 7.3 H Magnesium Level 1.7 Test 11/26/18 12:41 Bedside Glucose 158 Subjective 24 Hr Interval Summary Free Text/Dictation Patient doing well and denies any issues. Patient has had low BP but denies any symptoms. Exam/Review of Systems Exam Vitals Vital Signs Date Temp Pulse Resp B/P (MAP) Pulse Ox O2 O2 Flow FiO2 Time Delivery Rate 11/26/18 108/59 15:58 (75) 11/26/18 98.0 92 18 96 Room Air 15:12 11/26/18 3.0 13:58 Intake and Output 11/25/18 11/25/18 11/26/18 1515:00 23:00 07:00 IntakeIntake Total 600 ml 200 ml 440 ml OutputOutput Total 400 ml 500 ml BalanceBalance 200 ml 200 ml -60 ml Exam General: Patient is a pleasant male, no acute distress Neck: Supple Chest: Nontender Lungs: Clear to auscultation bilaterally no crackles rales or wheezing Heart: Normal S1-S2, Regular rate and rhythm. no murmurs Abdomen: Morbidly obese, soft , nontender, nondistended , bowel sounds are present. No guarding no rebound tenderness Extremities: Normal to inspection, no edema no cyanosis Results Results 24hrs Laboratory Tests Test 11/25/18 18:04 11/25/18 20:11 11/26/18 04:31 11/26/18 08:27 Bedside Glucose 128 150 127 White Blood Count 9.8 Red Blood Count 5.73 Hemoglobin 15.1 Hematocrit 48.1 Mean Corpuscular 83.9 Volume Mean Corpuscular 26.4 L Hemoglobin Mean Corpuscular 31.4 L Hemoglobin Concent Red Cell 20.8 H Distribution Width Platelet Count 347 # Mean Platelet Volume 9.6 Immature 0.800 H Granulocytes % Neutrophils % 29.6 L Lymphocytes % 51.2 H Monocytes % 13.5 H Eosinophils % 4.3 Basophils % 0.6 Nucleated Red Blood 0.0 Cells % Immature 0.080 H Granulocytes # Neutrophils # 2.9 Lymphocytes # 5.0 H Monocytes # 1.3 H Eosinophils # 0.4 Basophils # 0.1 Nucleated Red Blood 0.0 Cells # Sodium Level 135 Potassium Level 4.4 Chloride Level 88 L Carbon Dioxide Level 32 H Anion Gap 15 H Blood Urea Nitrogen 30 H Creatinine 1.46 H Est Glomerular 51 L Filtrat Rate mL/min Glucose Level 125 Calcium Level 9.6 Phosphorus Level 7.3 H Magnesium Level 1.7 Test 11/26/18 12:41 Bedside Glucose 158 Medications Medication Current Medications Nystatin (Nystatin Powder) 1 applic BID TOP Last administered on 11/25/18 12:42; Admin Dose 1 APPLIC; Start 10/19/18 at 21:00 Enoxaparin Sodium (Lovenox) 60 mg DAILY SC Last administered on 11/26/18 08:32; Admin Dose 60 MG; Start 10/21/18 at 09:00 IV Flush (NS 10 ml) 10 ml PRN PRN IV IV PROTOCOL; Start 10/20/18 at 16:30 Bisacodyl (Dulcolax Supp) 10 mg Q24H PRN [place] CONSTIPATION Last administered on 11/02/18 09:28; Admin Dose 10 MG; Start 10/31/18 at 11:30 Sodium Biphosphate/ Sodium Phosphate (Fleet Enema) 133 ml Q24H PRN [place] CONSTIPATION Last administered on 11/02/18 09:28; Admin Dose 133 ML; Start 10/31/18 at 11:30 Acetylcysteine (Mucomyst) 3 ml Q6H RESP THERAPY PRN NEB WHEEZING AND RESP DISTRESS Last administered on 11/22/18 21:06; Admin Dose 3 ML; Start 11/01/18 at 23:00 Hydralazine HCl (Apresoline) 10 mg Q4H PRN IV ELEVATED SYSTOLIC BP Last administered on 11/08/18 03:21; Admin Dose 10 MG; Start 11/02/18 at 00:30 Insulin Glargine (Lantus) 35 units BID@0800,2000 SC Last administered on 11/26/18 08:32; Admin Dose 35 UNITS; Start 11/05/18 at 20:00 Senna (Senokot) 2 tab BID PO Last administered on 11/26/18 08:32; Admin Dose 2 TAB; Start 11/09/18 at 21:00 Albuterol (Ventolin Hfa) 4 puff Q6H RESP THERAPY PRN INH SHORTNESS OF BREATH; Start 11/10/18 at 17:30 Ipratropium [place] (Atrovent Hfa) 4 puff Q6H RESP THERAPY PRN INH SHORTNESS OF BREATH; Start 11/10/18 at 17:30 Albuterol/ Ipratropium (Duoneb) 3 ml Q6H RESP THERAPY HHN Last administered on 11/26/18at 13:58; Admin Dose 3 ML; Start 11/10/18 at 20:30 Lorazepam (Ativan) 1 mg Q4 PRN IV agitation, anxiety Last administered on 11/11/18 22:25; Admin Dose 1 MG; Start 11/11/18 at 00:30 Acetaminophen (Tylenol Supp) 650 mg Q6H PRN [place] fever; Start 11/11/18 at 06:30 Mineral Oil (Eucerin Lotion) 1 applic DAILY TOP Last administered on 11/24/18 10:04; Admin Dose 1 APPLIC; Start 11/15/18 at 17:00 Insulin Aspart (Novolog Insulin Pen) NOVOLOG *MODERATE* ALGORI... AC MEALS SC Last administered on 11/26/18 12:43; Admin Dose 2 UNIT; Start 11/16/18 at 07:50 Miscellaneous Information (*Order Clarification Bulletin) MEDICATION RENEWAL: TYLENOL ... Q8H XX Last administered on 11/26/18 12:43; Admin Dose 1 EA; Start 11/22/18 at 21:00 Furosemide (Lasix) 40 mg DAILY PO ; Start 11/26/18 at 09:00 Lisinopril (Zestril) 10 mg DAILY PO ; Start 11/27/18 at 09:00 Metoprolol Succinate (Toprol Xl) 25 mg DAILY PO ; Start 11/27/18 at 09:00 CLAUDIA TIDWELL MD Nov 26, 2018 16:19
[2018-11-26 20:00] VITALS: BP 105/61; PULSE 94; RESP 20
[2018-11-27] MEDS: ALBUTEROL/IPRATROPIUM (NEB) 3 ML AMP HHN SCH ×4 (01:48→19:28)
[2018-11-27 02:00] VITALS: BP 106/69; PULSE 90; RESP 20
[2018-11-27] MEDS: [UNRECOGNIZED DRUG - OTHER] XX SCH ×2 (04:10→13:05)
[2018-11-27] MEDS: INSULIN ASPART [NOVOLOG] 3 ML PEN SC SCH ×3 (07:20→17:25)
[2018-11-27 07:55] VITALS: BP 120/58; PULSE 91; RESP 18
[2018-11-27] MEDS: SENNA TAB PO SCH ×2 (08:27→20:21)
[2018-11-27] MEDS: FUROSEMIDE 40 MG TAB PO SCH (08:28)
[2018-11-27] MEDS: METOPROLOL (XL) 50 MG TAB PO SCH (08:29)
[2018-11-27] MEDS: ENOXAPARIN 60 MG/0.6 ML SYG SC SCH (08:30)
[2018-11-27] MEDS: INSULIN GLARGINE [LANTus] (100 UNITS/ML) SYG SC SCH ×2 (08:30→20:24)
[2018-11-27] MEDS ORDERED: LISINOPRIL 20 MG TAB PO SCH (09:00)
--- NOTE | 2018-11-27 09:03 | PN ---
Date/Time of Note Date/Time of Note DATE: 11/27/18 TIME: 09:03 Assessment/Plan VTE Prophylaxis Risk score (from Ns)>0 risk: 1 SCD applied (from [facility] [place]): No SCD contraindicated: other Pharmacological prophylaxis: LMWH Lines/Catheters IV Catheter Type (from [facility]): Mid Line Urinary Cath still in place: No Assessment/Plan Assessment/Plan 1. Acute on chronic hypoxic/hypercapnic respiratory failure 2/2 OHS and acute diastolic CHF-resolved - Patient is doing well on room air but due to prolonged ICU stay is physically deconditioned - Continue current diuretics. Closely monitor potassium. - Continue supplement O2 as needed 2. OHS - BIPAP hs 3. Metabolic alkalosis from volume contraction - Stable, monitor 4. Acute encephalopathy secondary to delirium-resolved - Monitor 5. DM - A1c noted - Continue Lantus and basal/bolus insulin 6. KEVON- resolved 7. Morbid obesity - Counseled on weight cessation 8. Debility secondary to morbid obesity and prolonged ICU stay - PT/OT 9. Disposition - Continue monitoring on Med/Surg, pending placement Result Diagram: 11/27/18 0447 11/27/18 0447 Results 24hrs Laboratory Tests Test 11/26/18 12:41 11/26/18 17:50 11/26/18 20:30 11/27/18 04:47 Bedside Glucose 158 122 198 White Blood Count 8.6 Red Blood Count 5.86 Hemoglobin 15.3 Hematocrit 49.2 Mean Corpuscular 84.0 Volume Mean Corpuscular 26.1 L Hemoglobin Mean Corpuscular 31.1 L Hemoglobin Concent Red Cell 20.9 H Distribution Width Platelet Count 359 Mean Platelet Volume 9.5 Immature 0.700 H Granulocytes % Neutrophils % 27.9 L Lymphocytes % 54.6 H Monocytes % 12.5 H Eosinophils % 3.7 Basophils % 0.6 Nucleated Red Blood 0.0 Cells % Immature 0.060 H Granulocytes # Neutrophils # 2.4 Lymphocytes # 4.7 H Monocytes # 1.1 H Eosinophils # 0.3 Basophils # 0.1 Nucleated Red Blood 0.0 Cells # Sodium Level 137 Potassium Level 5.4 H Chloride Level 94 L Carbon Dioxide Level 35 H Anion Gap 8 Blood Urea Nitrogen 31 H Creatinine 0.94 Glucose Level 147 Calcium Level 10.0 Phosphorus Level 5.1 #H Magnesium Level 1.9 Albumin 3.8 Test 11/27/18 08:26 Bedside Glucose 124 Subjective 24 Hr Interval Summary Free Text/Dictation Patient doing well and denies any acute issues. Worked with PT this am and states feeling a little better with ambulation. Able to make it to the nursing station desk. Exam/Review of Systems Exam Vitals Vital Signs Date Temp Pulse Resp B/P (MAP) Pulse Ox O2 O2 Flow FiO2 Time Delivery Rate 11/27/18 3.0 08:15 11/27/18 90 18 93 Nasal 08:15 Cannula 11/27/18 98.0 120/58 07:55 (78) Intake and Output 11/26/18 11/26/18 11/27/18 1414:59 22:59 06:59 IntakeIntake Total 1100 ml 880 ml OutputOutput Total 250 ml 1700 ml BalanceBalance 850 ml -820 ml Exam General: Patient is a pleasant male, no acute distress Neck: Supple Chest: Nontender Lungs: Clear to auscultation bilaterally no crackles rales or wheezing Heart: Normal S1-S2, Regular rate and rhythm. no murmurs Abdomen: Morbidly obese, soft , nontender, nondistended , bowel sounds are present. No guarding no rebound tenderness Extremities: Normal to inspection, no edema no cyanosis Results Results 24hrs Laboratory Tests Test 11/26/18 12:41 11/26/18 17:50 11/26/18 20:30 11/27/18 04:47 Bedside Glucose 158 122 198 White Blood Count 8.6 Red Blood Count 5.86 Hemoglobin 15.3 Hematocrit 49.2 Mean Corpuscular 84.0 Volume Mean Corpuscular 26.1 L Hemoglobin Mean Corpuscular 31.1 L Hemoglobin Concent Red Cell 20.9 H Distribution Width Platelet Count 359 Mean Platelet Volume 9.5 Immature 0.700 H Granulocytes % Neutrophils % 27.9 L Lymphocytes % 54.6 H Monocytes % 12.5 H Eosinophils % 3.7 Basophils % 0.6 Nucleated Red Blood 0.0 Cells % Immature 0.060 H Granulocytes # Neutrophils # 2.4 Lymphocytes # 4.7 H Monocytes # 1.1 H Eosinophils # 0.3 Basophils # 0.1 Nucleated Red Blood 0.0 Cells # Sodium Level 137 Potassium Level 5.4 H Chloride Level 94 L Carbon Dioxide Level 35 H Anion Gap 8 Blood Urea Nitrogen 31 H Creatinine 0.94 Glucose Level 147 Calcium Level 10.0 Phosphorus Level 5.1 #H Magnesium Level 1.9 Albumin 3.8 Test 11/27/18 08:26 Bedside Glucose 124 Medications Medication Current Medications Nystatin (Nystatin Powder) 1 applic BID TOP Last administered on 11/26/18at 20:34; Admin Dose 1 APPLIC; Start 10/19/18 at 21:00 Enoxaparin Sodium (Lovenox) 60 mg DAILY SC Last administered on 11/27/18 08:30; Admin Dose 60 MG; Start 10/21/18 at 09:00 IV Flush (NS 10 ml) 10 ml PRN PRN IV IV PROTOCOL; Start 10/20/18 at 16:30 Bisacodyl (Dulcolax Supp) 10 mg Q24H PRN [place] CONSTIPATION Last administered on 11/02/18 09:28; Admin Dose 10 MG; Start 10/31/18 at 11:30 Sodium Biphosphate/ Sodium Phosphate (Fleet Enema) 133 ml Q24H PRN [place] CONSTIPATION Last administered on 11/02/18 09:28; Admin Dose 133 ML; Start 10/31/18 at 11:30 Acetylcysteine (Mucomyst) 3 ml Q6H RESP THERAPY PRN NEB WHEEZING AND RESP DISTRESS Last administered on 11/22/18 21:06; Admin Dose 3 ML; Start 11/01/18 at 23:00 Hydralazine HCl (Apresoline) 10 mg Q4H PRN IV ELEVATED SYSTOLIC BP Last administered on 11/08/18 03:21; Admin Dose 10 MG; Start 11/02/18 at 00:30 Insulin Glargine (Lantus) 35 units BID@0800,2000 SC Last administered on 11/27/18 08:30; Admin Dose 35 UNITS; Start 11/05/18 at 20:00 Senna (Senokot) 2 tab BID PO Last administered on 11/27/18 08:27; Admin Dose 2 TAB; Start 11/09/18 at 21:00 Albuterol (Ventolin Hfa) 4 puff Q6H RESP THERAPY PRN INH SHORTNESS OF BREATH; Start 11/10/18 at 17:30 Ipratropium [place] (Atrovent Hfa) 4 puff Q6H RESP THERAPY PRN INH SHORTNESS OF BREATH; Start 11/10/18 at 17:30 Albuterol/ Ipratropium (Duoneb) 3 ml Q6H RESP THERAPY HHN Last administered on 11/27/18 08:15; Admin Dose 3 ML; Start 11/10/18 at 20:30 Lorazepam (Ativan) 1 mg Q4 PRN IV agitation, anxiety Last administered on 11/11/18 22:25; Admin Dose 1 MG; Start 11/11/18 at 00:30 Acetaminophen (Tylenol Supp) 650 mg Q6H PRN [place] fever; Start 11/11/18 at 06:30 Mineral Oil (Eucerin Lotion) 1 applic DAILY TOP Last administered on 11/24/18 10:04; Admin Dose 1 APPLIC; Start 11/15/18 at 17:00 Insulin Aspart (Novolog Insulin Pen) NOVOLOG *MODERATE* ALGORI... AC MEALS SC Last administered on 11/26/18 12:43; Admin Dose 2 UNIT; Start 11/16/18 at 07:50 Miscellaneous Information (*Order Clarification Bulletin) MEDICATION RENEWAL: TYLENOL ... Q8H XX Last administered on 11/26/18 12:43; Admin Dose 1 EA; Start 11/22/18 at 21:00 Furosemide (Lasix) 40 mg DAILY PO Last administered on 11/27/18 08:28; Admin Dose 40 MG; Start 11/26/18 at 09:00 Lisinopril (Zestril) 10 mg DAILY PO Last administered on 11/27/18 08:29; Admin Dose 10 MG; Start 11/27/18 at 09:00 Metoprolol Succinate (Toprol Xl) 25 mg DAILY PO Last administered on 11/27/18 08:29; Admin Dose 25 MG; Start 11/27/18 at 09:00 CLAUDIA TIDWELL MD Nov 27, 2018 09:03
[2018-11-27] MEDS ORDERED: ACETAMINOPHEN 325 MG TAB PO PRN (09:30)
[2018-11-27] MEDS: MINERAL OIL 240 ML LOT TOP SCH (10:29)
[2018-11-27] MEDS: NYSTATIN 30 GM POWDER BTL TOP SCH ×2 (10:29→20:25)
[2018-11-27 16:40] VITALS: BP 115/58; PULSE 95; RESP 18
[2018-11-27 19:40] VITALS: BP 114/73; PULSE 95; RESP 20
[2018-11-28 02:00] VITALS: BP 109/65; PULSE 99; RESP 20
[2018-11-28] MEDS: ALBUTEROL/IPRATROPIUM (NEB) 3 ML AMP HHN SCH ×4 (02:05→20:26)
[2018-11-28 08:41] VITALS: BP 121/87; PULSE 96; RESP 20
[2018-11-28] MEDS: INSULIN ASPART [NOVOLOG] 3 ML PEN SC SCH ×3 (08:56→17:25)
[2018-11-28] MEDS: NYSTATIN 30 GM POWDER BTL TOP SCH ×2 (08:57→20:19)
[2018-11-28] MEDS: FUROSEMIDE 40 MG TAB PO SCH (08:58)
[2018-11-28] MEDS: METOPROLOL (XL) 50 MG TAB PO SCH (08:59)
[2018-11-28] MEDS: LISINOPRIL 5 MG TAB PO SCH (09:00)
[2018-11-28] MEDS: SENNA TAB PO SCH ×2 (09:00→20:18)
[2018-11-28] MEDS: INSULIN GLARGINE [LANTus] (100 UNITS/ML) SYG SC SCH ×2 (09:02→20:22)
[2018-11-28] MEDS: ENOXAPARIN 60 MG/0.6 ML SYG SC SCH (09:02)
[2018-11-28] MEDS: MINERAL OIL 240 ML LOT TOP SCH (09:06)
--- NOTE | 2018-11-28 15:22 | PN ---
Date/Time of Note Date/Time of Note DATE: 11/28/18 TIME: 15:08 Assessment/Plan VTE Prophylaxis Risk score (from Nsg)>0 risk: 1 SCD applied (from Nsg): Yes Pharmacological prophylaxis: LMWH Lines/Catheters IV Catheter Type (from Nrsg): Mid Line Urinary Cath still in place: No Assessment/Plan Assessment/Plan 1. Acute on chronic hypoxic/hypercapnic respiratory failure 2/2 OHS and acute diastolic CHF-resolved - Stable on NC and saturating well. continue O2 supplementation as needed - Continue current diuretics. Closely monitor potassium. 2. OHS - BIPAP hs 3. Metabolic alkalosis from volume contraction - resolved 4. Acute encephalopathy secondary to delirium-resolved - Monitor 5. DM - A1c noted - Continue Lantus and basal/bolus insulin 6. KEVON- resolved 7. Morbid obesity - Counseled on weight cessation 8. Debility secondary to morbid obesity and prolonged ICU stay - PT/OT 9. Disposition - Continue monitoring on Med/Surg, pending placement Result Diagram: 11/28/18 0451 11/28/18 0451 Results 24hrs Laboratory Tests Test 11/27/18 17:42 11/27/18 20:23 11/28/18 04:51 11/28/18 08:55 Bedside Glucose 121 150 135 White Blood Count 8.6 Red Blood Count 5.76 Hemoglobin 15.1 Hematocrit 48.2 Mean Corpuscular 83.7 Volume Mean Corpuscular 26.2 L Hemoglobin Mean Corpuscular 31.3 L Hemoglobin Concent Red Cell 20.7 H Distribution Width Platelet Count 368 Mean Platelet Volume 9.5 Immature 0.600 H Granulocytes % Neutrophils % 27.6 L Lymphocytes % 55.1 H Monocytes % 12.6 H Eosinophils % 3.4 Basophils % 0.7 Nucleated Red Blood 0.0 Cells % Immature 0.050 H Granulocytes # Neutrophils # 2.4 Lymphocytes # 4.7 H Monocytes # 1.1 H Eosinophils # 0.3 Basophils # 0.1 Nucleated Red Blood 0.0 Cells # Sodium Level 138 Potassium Level 4.3 Chloride Level 95 L Carbon Dioxide Level 31 Anion Gap 12 Blood Urea Nitrogen 22 H Creatinine 0.82 Glucose Level 118 Calcium Level 10.0 Phosphorus Level 5.6 H Magnesium Level 1.8 Albumin 3.8 Test 11/28/18 12:57 Bedside Glucose 123 Subjective 24 Hr Interval Summary Free Text/Dictation Patient doing well and denies any acute issues. Continues to await placement. Exam/Review of Systems Exam Vitals Vital Signs Date Temp Pulse Resp B/P (MAP) Pulse Ox O2 O2 Flow FiO2 Time Delivery Rate 11/28/18 92 2.0 13:39 11/28/18 89 18 Nasal 13:39 Cannula 11/28/18 98.0 121/87 08:41 (98) Intake and Output 11/27/18 11/27/18 11/28/18 1515:00 23:00 07:00 IntakeIntake Total 1500 ml 420 ml OutputOutput Total 1200 ml 500 ml BalanceBalance 300 ml -80 ml Exam General: Patient is a pleasant male, no acute distress Neck: Supple Chest: Nontender Lungs: Clear to auscultation bilaterally no crackles rales or wheezing Heart: Normal S1-S2, Regular rate and rhythm. no murmurs Abdomen: Morbidly obese, soft , nontender, nondistended , bowel sounds are present. No guarding no rebound tenderness Extremities: Normal to inspection, no edema no cyanosis Results Results 24hrs Laboratory Tests Test 11/27/18 17:42 11/27/18 20:23 11/28/18 04:51 11/28/18 08:55 Bedside Glucose 121 150 135 White Blood Count 8.6 Red Blood Count 5.76 Hemoglobin 15.1 Hematocrit 48.2 Mean Corpuscular 83.7 Volume Mean Corpuscular 26.2 L Hemoglobin Mean Corpuscular 31.3 L Hemoglobin Concent Red Cell 20.7 H Distribution Width Platelet Count 368 Mean Platelet Volume 9.5 Immature 0.600 H Granulocytes % Neutrophils % 27.6 L Lymphocytes % 55.1 H Monocytes % 12.6 H Eosinophils % 3.4 Basophils % 0.7 Nucleated Red Blood 0.0 Cells % Immature 0.050 H Granulocytes # Neutrophils # 2.4 Lymphocytes # 4.7 H Monocytes # 1.1 H Eosinophils # 0.3 Basophils # 0.1 Nucleated Red Blood 0.0 Cells # Sodium Level 138 Potassium Level 4.3 Chloride Level 95 L Carbon Dioxide Level 31 Anion Gap 12 Blood Urea Nitrogen 22 H Creatinine 0.82 Glucose Level 118 Calcium Level 10.0 Phosphorus Level 5.6 H Magnesium Level 1.8 Albumin 3.8 Test 11/28/18 12:57 Bedside Glucose 123 Medications Medication Current Medications Nystatin (Nystatin Powder) 1 applic BID TOP Last administered on 11/28/18 08:57; Admin Dose 1 APPLIC; Start 10/19/18 at 21:00 Enoxaparin Sodium (Lovenox) 60 mg DAILY SC Last administered on 11/28/18 09:02; Admin Dose 60 MG; Start 10/21/18 at 09:00 IV Flush (NS 10 ml) 10 ml PRN PRN IV IV PROTOCOL; Start 10/20/18 at 16:30 Bisacodyl (Dulcolax Supp) 10 mg Q24H PRN [place] CONSTIPATION Last administered on 11/02/18 09:28; Admin Dose 10 MG; Start 10/31/18 at 11:30 Sodium Biphosphate/ Sodium Phosphate (Fleet Enema) 133 ml Q24H PRN [place] CONSTIPATION Last administered on 11/02/18 09:28; Admin Dose 133 ML; Start 10/31/18 at 11:30 Acetylcysteine (Mucomyst) 3 ml Q6H RESP THERAPY PRN NEB WHEEZING AND RESP DISTRESS Last administered on 11/22/18 21:06; Admin Dose 3 ML; Start 11/01/18 at 23:00 Hydralazine HCl (Apresoline) 10 mg Q4H PRN IV ELEVATED SYSTOLIC BP Last administered on 11/08/18 03:21; Admin Dose 10 MG; Start 11/02/18 at 00:30 Insulin Glargine (Lantus) 35 units BID@0800,2000 SC Last administered on 11/28/18 09:02; Admin Dose 35 UNITS; Start 11/05/18 at 20:00 Senna (Senokot) 2 tab BID PO Last administered on 11/28/18 09:00; Admin Dose 2 TAB; Start 11/09/18 at 21:00 Albuterol (Ventolin Hfa) 4 puff Q6H RESP THERAPY PRN INH SHORTNESS OF BREATH; Start 11/10/18 at 17:30 Ipratropium [place] (Atrovent Hfa) 4 puff Q6H RESP THERAPY PRN INH SHORTNESS OF BREATH; Start 11/10/18 at 17:30 Albuterol/ Ipratropium (Duoneb) 3 ml Q6H RESP THERAPY HHN Last administered on 11/28/18 13:39; Admin Dose 3 ML; Start 11/10/18 at 20:30 Lorazepam (Ativan) 1 mg Q4 PRN IV agitation, anxiety Last administered on 11/11/18 22:25; Admin Dose 1 MG; Start 11/11/18 at 00:30 Acetaminophen (Tylenol Supp) 650 mg Q6H PRN [place] fever; Start 11/11/18 at 06:30 Mineral Oil (Eucerin Lotion) 1 applic DAILY TOP Last administered on 11/28/18 09:06; Admin Dose 1 APPLIC; Start 11/15/18 at 17:00 Insulin Aspart (Novolog Insulin Pen) NOVOLOG *MODERATE* ALGORI... AC MEALS SC Last administered on 11/27/18 12:36; Admin Dose 2 UNIT; Start 11/16/18 at 07:50 Furosemide (Lasix) 40 mg DAILY PO Last administered on 11/28/18 08:58; Admin Dose 40 MG; Start 11/26/18 at 09:00 Metoprolol Succinate (Toprol Xl) 25 mg DAILY PO Last administered on 11/28/18at 08:59; Admin Dose 25 MG; Start 11/27/18 at 09:00 Acetaminophen (Tylenol Tab) 650 mg Q4H PRN PO MILD PAIN(1-3)OR ELEVATED TEMP; Start 11/27/18 at 09:30 Lisinopril (Zestril) 5 mg DAILY PO Last administered on 11/28/18 09:00; Admin Dose 5 MG; Start 11/28/18 at 09:00 CLAUDIA TIDWELL MD Nov 28, 2018 15:22
[2018-11-28 20:20] VITALS: BP 113/71; PULSE 88; RESP 20
[2018-11-29] MEDS: ALBUTEROL/IPRATROPIUM (NEB) 3 ML AMP HHN SCH ×4 (02:13→20:15)
[2018-11-29 02:40] VITALS: BP 113/67; PULSE 88; RESP 18
[2018-11-29] MEDS: INSULIN ASPART [NOVOLOG] 3 ML PEN SC SCH ×3 (07:20→17:25)
[2018-11-29 08:34] VITALS: BP 112/70; PULSE 95; RESP 18
[2018-11-29] MEDS: SENNA TAB PO SCH ×2 (08:41→20:55)
[2018-11-29] MEDS: FUROSEMIDE 40 MG TAB PO SCH (08:42)
[2018-11-29] MEDS: METOPROLOL (XL) 50 MG TAB PO SCH (08:43)
[2018-11-29] MEDS: LISINOPRIL 5 MG TAB PO SCH (08:44)
[2018-11-29] MEDS: ENOXAPARIN 60 MG/0.6 ML SYG SC SCH (08:44)
[2018-11-29] MEDS: MINERAL OIL 240 ML LOT TOP SCH (08:45)
[2018-11-29] MEDS: INSULIN GLARGINE [LANTus] (100 UNITS/ML) SYG SC SCH ×2 (08:45→20:57)
[2018-11-29] MEDS: NYSTATIN 30 GM POWDER BTL TOP SCH ×2 (08:45→20:55)
--- NOTE | 2018-11-29 09:46 | PN ---
Date/Time of Note Date/Time of Note DATE: 11/29/18 TIME: 09:46 Assessment/Plan VTE Prophylaxis Risk score (from Ns)>0 risk: 5 SCD applied (from Ns): No SCD contraindicated: other Pharmacological prophylaxis: LMWH Lines/Catheters IV Catheter Type (from Nrs): Mid Line Urinary Cath still in place: No Assessment/Plan Assessment/Plan 1. Acute on chronic hypoxic/hypercapnic respiratory failure 2/2 OHS and acute diastolic CHF-resolved - Stable on room air but occasionally on NC and saturating well. continue O2 supplementation as needed - Continue current diuretics. Closely monitor potassium. 2. OHS - BIPAP hs 3. Metabolic alkalosis from volume contraction - resolved 4. Acute encephalopathy secondary to delirium-resolved - Monitor 5. DM - A1c noted - Continue Lantus and basal/bolus insulin 6. KEVON- resolved 7. Morbid obesity - Counseled on weight cessation 8. Debility secondary to morbid obesity and prolonged ICU stay - PT/OT 9. Disposition - CM on board and appreciate assistance with placement. Bariatric bed being ordered and once arrives, can be d/c to [facility] Result Diagram: 11/28/18 0451 11/28/18 0451 Results 24hrs Laboratory Tests Test 11/28/18 12:57 11/28/18 17:41 11/28/18 20:17 11/29/18 08:36 Bedside Glucose 123 120 129 111 Subjective 24 Hr Interval Summary Free Text/Dictation Patient is doing well and in no acute distress. Tolerating PT this am and able to ambulate down the kidd. No acute overnight events. Exam/Review of Systems Exam Vitals Vital Signs Date Temp Pulse Resp B/P (MAP) Pulse Ox O2 O2 Flow FiO2 Time Delivery Rate 11/29/18 98.2 95 18 112/70 96 Room Air 08:34 (84) 11/29/18 2.0 08:21 11/29/18 21 02:13 Intake and Output 11/28/18 11/28/18 11/29/18 1515:00 23:00 07:00 IntakeIntake Total 1200 ml 480 ml 800 ml OutputOutput Total 1050 ml 400 ml 300 ml BalanceBalance 150 ml 80 ml 500 ml Exam General: Patient is a pleasant male, no acute distress Neck: Supple Chest: Nontender Lungs: Clear to auscultation bilaterally no crackles rales or wheezing Heart: Normal S1-S2, Regular rate and rhythm. no murmurs Abdomen: Morbidly obese, soft , nontender, nondistended , bowel sounds are present. No guarding no rebound tenderness Extremities: Normal to inspection, no edema no cyanosis Results Results 24hrs Laboratory Tests Test 11/28/18 12:57 11/28/18 17:41 11/28/18 20:17 11/29/18 08:36 Bedside Glucose 123 120 129 111 Medications Medication Current Medications Nystatin (Nystatin Powder) 1 applic BID TOP Last administered on 11/29/18 08:45; Admin Dose 1 APPLIC; Start 10/19/18 at 21:00 Enoxaparin Sodium (Lovenox) 60 mg DAILY SC Last administered on 11/29/18 08:44; Admin Dose 60 MG; Start 10/21/18 at 09:00 IV Flush (NS 10 ml) 10 ml PRN PRN IV IV PROTOCOL; Start 10/20/18 at 16:30 Bisacodyl (Dulcolax Supp) 10 mg Q24H PRN [place] CONSTIPATION Last administered on 11/02/18 09:28; Admin Dose 10 MG; Start 10/31/18 at 11:30 Sodium Biphosphate/ Sodium Phosphate (Fleet Enema) 133 ml Q24H PRN [place] CONSTIPATION Last administered on 11/02/18 09:28; Admin Dose 133 ML; Start 10/31/18 at 11:30 Acetylcysteine (Mucomyst) 3 ml Q6H RESP THERAPY PRN NEB WHEEZING AND RESP DISTRESS Last administered on 11/22/18 21:06; Admin Dose 3 ML; Start 11/01/18 at 23:00 Hydralazine HCl (Apresoline) 10 mg Q4H PRN IV ELEVATED SYSTOLIC BP Last administered on 11/08/18 03:21; Admin Dose 10 MG; Start 11/02/18 at 00:30 Insulin Glargine (Lantus) 35 units BID@0800,2000 SC Last administered on 11/29/18 08:45; Admin Dose 35 UNITS; Start 11/05/18 at 20:00 Senna (Senokot) 2 tab BID PO Last administered on 11/29/18 08:41; Admin Dose 2 TAB; Start 11/09/18 at 21:00 Albuterol (Ventolin Hfa) 4 puff Q6H RESP THERAPY PRN INH SHORTNESS OF BREATH; Start 11/10/18 at 17:30 Ipratropium [place] (Atrovent Hfa) 4 puff Q6H RESP THERAPY PRN INH SHORTNESS OF BREATH; Start 11/10/18 at 17:30 Albuterol/ Ipratropium (Duoneb) 3 ml Q6H RESP THERAPY HHN Last administered on 11/29/18 08:21; Admin Dose 3 ML; Start 11/10/18 at 20:30 Lorazepam (Ativan) 1 mg Q4 PRN IV agitation, anxiety Last administered on 11/11/18 22:25; Admin Dose 1 MG; Start 11/11/18 at 00:30 Acetaminophen (Tylenol Supp) 650 mg Q6H PRN [place] fever; Start 11/11/18 at 06:30 Mineral Oil (Eucerin Lotion) 1 applic DAILY TOP Last administered on 11/29/18 08:45; Admin Dose 1 APPLIC; Start 11/15/18 at 17:00 Insulin Aspart (Novolog Insulin Pen) NOVOLOG *MODERATE* ALGORI... AC MEALS SC Last administered on 11/27/18 12:36; Admin Dose 2 UNIT; Start 11/16/18 at 07:50 Furosemide (Lasix) 40 mg DAILY PO Last administered on 11/29/18 08:42; Admin Dose 40 MG; Start 11/26/18 at 09:00 Metoprolol Succinate (Toprol Xl) 25 mg DAILY PO Last administered on 11/29/18 08:43; Admin Dose 25 MG; Start 11/27/18 at 09:00 Acetaminophen (Tylenol Tab) 650 mg Q4H PRN PO MILD PAIN(1-3)OR ELEVATED TEMP; Start 11/27/18 at 09:30 Lisinopril (Zestril) 5 mg DAILY PO Last administered on 11/29/18 08:44; Admin Dose 5 MG; Start 11/28/18 at 09:00 CLAUDIA TIDWELL MD Nov 29, 2018 09:46
[2018-11-29 15:00] VITALS: BP 105/58; PULSE 92; RESP 18
[2018-11-29] MEDS ORDERED: METO-319 PO (16:55)
[2018-11-29] MEDS ORDERED: Insulin Glargine SC (16:55)
[2018-11-29] MEDS ORDERED: FURO40TA4 PO (16:55)
--- NOTE | 2018-11-29 17:03 | PDOCDIS ---
Discharge Instructions DIAGNOSIS Discharge Diagnosis 1. Acute on chronic hypoxic/hypercapnic respiratory failure 2/2 OHS and acute diastolic CHF-resolved 2. OHS 3. Metabolic alkalosis from volume contraction- resolved 4. Acute encephalopathy secondary to delirium-resolved 5. DM 6. KEVON- resolved 7. Morbid obesity 8. Debility secondary to prolonged ICU stay CONDITION [id number] Patient Condition: [id number] Stable HOME CARE INSTRUCTIONS: [id number] Diet Instructions: [id number] Reduced Calorie [id number] Special Diet: [id number] CONSISTENT CARB DIET ACTIVITY: [id number] Activity Restrictions: [id number] Slowly Increase Activity Rest between Activity Avoid heavy lifting Do not Drive Do not operate Machinery Do not operate Power Tool Avoid Heavy Housework [id number] Bathing Restrictions: [id number] Shower [id number] Activity Restrictions Comment: [id number] with assist FOLLOW UP/APPOINTMENTS Follow-up Plan 1. Continue all medications as prescribed 2. It is important you continue with physical therapy and increase physical activity in general 3. You will need to follow up with your Primary Care Physician in 1 week 4. You will need to a outpatient sleep study 5. Continue Lantus 35 unit in the am and pm to control your sugars 6. If symptoms return, please go to your nearest emergency department. CLAUDIA TIDWELL MD Nov 29, 2018 17:03
[2018-11-29 19:47] VITALS: BP 118/58; PULSE 93; RESP 20
[2018-11-30] MEDS: ALBUTEROL/IPRATROPIUM (NEB) 3 ML AMP HHN SCH ×3 (01:15→14:01)
[2018-11-30 01:57] VITALS: BP 108/61; PULSE 90; RESP 20
[2018-11-30] MEDS: INSULIN ASPART [NOVOLOG] 3 ML PEN SC SCH ×2 (07:20→11:10)
[2018-11-30 07:38] VITALS: BP 123/75; PULSE 92; RESP 16
--- NOTE | 2018-11-30 08:48 | PN ---
Date/Time of Note Date/Time of Note DATE: 11/30/18 TIME: 08:47 Assessment/Plan VTE Prophylaxis Risk score (from Ns)>0 risk: 3 SCD applied (from [facility] [place]): No SCD contraindicated: patient refusal Pharmacological prophylaxis: LMWH Lines/Catheters IV C[facility]ter Type (from [facility]): Mid Line Urinary Cath still in place: No Assessment/Plan Assessment/Plan 1. Acute on chronic hypoxic/hypercapnic respiratory failure 2/2 OHS and acute diastolic CHF-resolved - Stable on room air but occasionally on NC and saturating well. continue O2 supplementation as needed - Continue current diuretics. Closely monitor potassium. 2. OHS - BIPAP hs 3. Metabolic alkalosis from volume contraction - resolved 4. Acute encephalopathy secondary to delirium-resolved 5. DM - A1c noted - Continue Lantus and basal/bolus insulin 6. KEVON- resolved 7. Morbid obesity - Counseled on weight cessation 8. Debility secondary to morbid obesity and prolonged ICU stay - PT/OT 9. Disposition - Medically stable for discharge to SNF Result Diagram: 11/28/1845011/28/181 Results 24hrs Laboratory Tests Test 11/29/18 13:10 11/29/18 17:51 11/29/18 20:53 Bedside Glucose 116 115 132 Subjective 24 Hr Interval Summary Free Text/Dictation Patient is doing well and no acute overnight events. Plans for d/c today Exam/Review of Systems Exam Vitals Vital Signs Date Temp Pulse Resp B/P (MAP) Pulse Ox O2 O2 Flow FiO2 Time Delivery Rate 11/30/18 95 18 97 21 08:15 11/30/18 97.9 123/75 Room Air 07:38 (91) 11/29/18 2.0 14:19 Intake and Output 11/29/18 11/29/18 11/30/18 1515:00 23:00 07:00 IntakeIntake Total 900 ml OutputOutput Total 750 ml 500 ml BalanceBalance 150 ml -500 ml Exam General: Patient is a pleasant male, no acute distress Neck: Supple Chest: Nontender Lungs: Clear to auscultation bilaterally no crackles rales or wheezing Heart: Normal S1-S2, Regular rate and rhythm. no murmurs Abdomen: Morbidly obese, soft , nontender, nondistended , bowel sounds are present. No guarding no rebound tenderness Extremities: Normal to inspection, no edema no cyanosis Results Results 24hrs Laboratory Tests Test 11/29/18 13:10 11/29/18 17:51 11/29/18 20:53 Bedside Glucose 116 115 132 Medications Medication Current Medications Nystatin (Nystatin Powder) 1 applic BID TOP Last administered on 11/29/18 20:55; Admin Dose 1 APPLIC; Start 10/19/18 at 21:00 Enoxaparin Sodium (Lovenox) 60 mg DAILY SC Last administered on 11/29/18 08:44; Admin Dose 60 MG; Start 10/21/18 at 09:00 IV Flush (NS 10 ml) 10 ml PRN PRN IV IV PROTOCOL; Start 10/20/18 at 16:30 Bisacodyl (Dulcolax Supp) 10 mg Q24H PRN [place] CONSTIPATION Last administered on 11/02/18 09:28; Admin Dose 10 MG; Start 10/31/18 at 11:30 Sodium Biphosphate/ Sodium Phosphate (Fleet Enema) 133 ml Q24H PRN [place] CONSTIPATION Last administered on 11/02/18 09:28; Admin Dose 133 ML; Start 10/31/18 at 11:30 Acetylcysteine (Mucomyst) 3 ml Q6H RESP THERAPY PRN NEB WHEEZING AND RESP DISTRESS Last administered on 11/22/18 21:06; Admin Dose 3 ML; Start 11/01/18 at 23:00 Hydralazine HCl (Apresoline) 10 mg Q4H PRN IV ELEVATED SYSTOLIC BP Last ad ministered on 11/08/18 03:21; Admin Dose 10 MG; Start 11/02/18 at 00:30 Insulin Glargine (Lantus) 35 units BID@0800,2000 SC Last administered on 11/29/18 20:57; Admin Dose 35 UNITS; Start 11/05/18 at 20:00 Senna (Senokot) 2 tab BID PO Last administered on 11/29/18 20:55; Admin Dose 2 TAB; Start 11/09/18 at 21:00 Albuterol (Ventolin Hfa) 4 puff Q6H RESP THERAPY PRN INH SHORTNESS OF BREATH; Start 11/10/18 at 17:30 Ipratropium [place] (Atrovent Hfa) 4 puff Q6H RESP THERAPY PRN INH SHORTNESS OF BREATH; Start 11/10/18 at 17:30 Albuterol/ Ipratropium (Duoneb) 3 ml Q6H RESP THERAPY HHN Last administered on 11/30/18 08:15; Admin Dose 3 ML; Start 11/10/18 at 20:30 Lorazepam (Ativan) 1 mg Q4 PRN IV agitation, anxiety Last administered on 11/11/18 22:25; Admin Dose 1 MG; Start 11/11/18 at 00:30 Acetaminophen (Tylenol Supp) 650 mg Q6H PRN [place] fever; Start 11/11/18 at 06:30 Mineral Oil (Eucerin Lotion) 1 applic DAILY TOP Last administered on 11/29/18 08:45; Admin Dose 1 APPLIC; Start 11/15/18 at 17:00 Insulin Aspart (Novolog Insulin Pen) NOVOLOG *MODERATE* ALGORI... AC MEALS SC Last administered on 11/27/18 12:36; Admin Dose 2 UNIT; Start 11/16/18 at 07:50 Furosemide (Lasix) 40 mg DAILY PO Last administered on 11/29/18 08:42; Admin Dose 40 MG; Start 11/26/18 at 09:00 Metoprolol Succinate (Toprol Xl) 25 mg DAILY PO Last administered on 11/29/18 08:43; Admin Dose 25 MG; Start 11/27/18 at 09:00 Acetaminophen (Tylenol Tab) 650 mg Q4H PRN PO MILD PAIN(1-3)OR ELEVATED TEMP; Start 11/27/18 at 09:30 CLAUDIA TIDWELL MD Nov 30, 2018 08:48
[2018-11-30] MEDS: SENNA TAB PO SCH (09:13)
[2018-11-30] MEDS: FUROSEMIDE 40 MG TAB PO SCH (09:15)
[2018-11-30] MEDS: METOPROLOL (XL) 50 MG TAB PO SCH (09:15)
[2018-11-30] MEDS: ENOXAPARIN 60 MG/0.6 ML SYG SC SCH (09:16)
[2018-11-30] MEDS: NYSTATIN 30 GM POWDER BTL TOP SCH (09:17)
[2018-11-30] MEDS: INSULIN GLARGINE [LANTus] (100 UNITS/ML) SYG SC SCH (09:17)
[2018-11-30] MEDS: MINERAL OIL 240 ML LOT TOP SCH (09:18)
[2018-11-30 14:13] VITALS: BP 113/60; PULSE 85; RESP 17
--- NOTE | 2018-11-30 15:42 | DS ---
Date/Time of Note Date/Time of Note DATE: 11/30/18 TIME: 15:23 Discharge Summary Admission/Discharge Info Admit Date/Time Oct 17, 2018 at 14:17 Discharge Date/Time Nov 30, 2018 at 14:28 Discharge Diagnosis 1. Acute on chronic hypoxic/hypercapnic respiratory failure 2/2 OHS and acute diastolic CHF-resolved 2. OHS 3. Metabolic alkalosis from volume contraction- resolved 4. Acute encephalopathy secondary to delirium-resolved 5. DM 6. KEVON- resolved 7. Morbid obesity 8. Debility secondary to prolonged ICU stay Patient Condition: Stable Consults Pulmonology CT surgery Procedures PROCEDURE: XR Chest. CLINICAL INDICATION: shortness of breath TECHNIQUE: Single portable view of the chest was obtained COMPARISON: None FINDINGS: There is mild cardiomegaly. There is mild pulmonary vascular congestion. There are bilateral perihilar and lower lobe increased interstitial changes. There is a slightly more focal right lower lobe infiltrate. There is a small left pleural effusion.. There is no pneumothorax. RPTAT: AA IMPRESSION: Mild cardiomegaly with pulmonary vascular congestion. Slightly more focal right lower lobe consolidation, may represent associated pneumonia.. .Gurpreet Harvey MD, MD Date Time Electronically viewed and signed by .Gurpreet Harvey MD, MD on 10/17/2018 12:28 . . PROCEDURE: US Lower extremity Venous. CLINICAL INDICATION: Bilateral lower extremity edema TECHNIQUE: Multiple sonographic images of the bilateral lower extremity deep venous system was obtained utilizing grayscale, color-flow, compressive sonography and doppler imaging with augmentation. The images were reviewed on a PACS workstation. COMPARISON: None. FINDINGS: The study is very limited due to the patient's large body habitus. There is normal compressibility and flow within the bilateral femoral and popliteal veins. The right common femoral vein is not well seen. There is Doppler flow identified. The left common femoral vein is patent. The calf veins were not visualized. RPTAT: AA IMPRESSION: Very limited study due to the patient's body habitus. The calf veins were not visualized. No gross sonographic evidence for deep venous thrombosis. .Gurpreet Harvey MD, MD Date Time Electronically viewed and signed by .Gurpreet Harvey MD, MD on 10/19/2018 12:10 PROCEDURE: US guidance for PICC line CLINICAL INDICATION: PICC line placement TECHNIQUE: Multiple real-time images were acquired of the patient's arm utilizing a high resolution transducer. This was performed by the PICC line nurse for venous access. COMPARISON: None FINDINGS: Ultrasound guidance for PICC line placement. IMPRESSION: Ultrasound guidance for PICC line placement. RPTAT: QQ Physician Moni Date Time Electronically viewed and signed by Physician Moni on 10/20/2018 16:22 PROCEDURE: XR Abdomen. CLINICAL INDICATION: Obstruction. TECHNIQUE: Portable AP supine view of the abdomen was obtained. COMPARISON: None FINDINGS: Examination is limited due to the patient's body habitus. Within limitations of this study, no abnormally dilated bowel loops is seen in the abdomen. A radiopaque catheter/tubing superimposes the pelvis and may represent a urinary catheter. IMPRESSION: 1. Limited examination due to the patient's body habitus. 2. Grossly, nonobstructive bowel gas pattern. RPTAT:HAJM Physician Pattie Date Time Electronically viewed and signed by Physician Pattie on 10/28/2018 23:07 PROCEDURE: XR Chest. CLINICAL INDICATION: CHF TECHNIQUE: Frontal chest x-ray was obtained. COMPARISON: Chest x-ray November 13 FINDINGS: There is cardiomegaly. Mediastinum is not widened. No hilar masses seen. There has been interval partial clearing of diffuse bilateral reticular nodular infiltrates. No effusion or pneumothorax is seen. IMPRESSION: Resolving diffuse bilateral reticular nodular infiltrates compatible with partially treated pneumonia or failure. .Benito Panda MD, MD Date Time Electronically viewed and signed by .Benito Panda MD, MD on 11/16/2018 14:37 Hx of Present Illness 52 yo male with h/o morbid obesity, DMII presented with respiratory distress Patient currently intubated and unable to provide a history. Sister at bedside. Says he does not care for himself at all. Drinks heavily. Smokes heavily. Doesn't see doctors. She has been checking in on him at home. Has been combative over previous weeks. Over past days has developed SOB. Sister went b y today and found him in severe respiratory distress so called 911. Here found to be in marked hypercapnic respiratory failure. Urgently intubated. Appears comfortable now Hospital Course Patient was admitted to ICU for treatment of acute respiratory failure secondary to CHF exacerbation and superimposed pneumonia. Patient was started on IV an tibiotics and was aggressively diuresed. Pulmonology was consulted for vent management based on ARDS guidelines. Patient had a prolonged ICU stay given difficulty weaning down vent setting. Patients respiratory status improved and was weaned off the vent successfully and placed on high flow O2. Patients diabetes was managed with insulin drip and transitioned to SC Lantus with good control. Patient developed mild KEVON and after medication adjustments were made, resolved. patient worked with physical therapy and due to prolonged ICU stay and deconditioning, SNF vs rehab was recommended. Patients presenting symptoms improved significantly and on day of discharge, patients vitals and physical exam were stable. Patient was discharged to SNF in good condition. Home Meds Active Scripts [Insulin Glargine] 100 UNITS/ML SOLN No Conflict Check, 35 UNITS SC BID@0800,20 00 for 30 Days, #1 VIAL Prov:CLAUDIA TIDWELL MD 11/29/18 Furosemide* (Furosemide*) 40 Mg Tablet, 40 MG PO DAILY for 30 Days, #30 TAB 6 Refills Prov:CLAUDIA TIDWELL MD 11/29/18 Metoprolol Succinate* (Toprol XL*) 50 Mg Tab.er.24h, 25 MG PO DAILY for 30 Days, #30 TAB Prov:CLAUDIA TIDWELL MD 11/29/18 Discontinued Reported Medications Hydrochlorothiazide* (Hydrochlorothiazide*) 25 Mg Tab, 25 MG PO DAILY, #30 TAB 10/17/18 Lisinopril* (Lisinopril*) 20 Mg Tablet, 20 MG PO DAILY, #30 TAB 10/17/18 Follow-up Plan 1. Continue all medications as prescribed 2. It is important you continue with physical therapy and increase physical activity in general 3. You will need to follow up with your Primary Care Physician in 1 week 4. You will need to a outpatient sleep study 5. Continue Lantus 35 unit in the am and pm to control your sugars 6. If symptoms return, please go to your nearest emergency department. Primary Care Provider Care Physician No Primary Time spent on discharge: > 30 minutes Pending Labs Laboratory Tests Test 11/29/18 17:51 11/29/18 20:53 11/30/18 08:55 11/30/18 13:18 Bedside 115 132 114 140 Glucose mg/dL (70-220) mg/dL (70-220) mg/dL (70-220) mg/dL (70-220) CLAUDIA TIDWELL MD Nov 30, 2018 15:41
== END 2018-11-30 14:28 | DRG 207 ==
LOC: E/R 11:41 → ICU 14:17 → TEL 11-13 15:50 → MS1 11-16 22:50
PROVIDERS: ADMIT Internal Medicine; ATTEND Internal Medicine
PROC: 0BH17EZ Insertion of Endotracheal Airway into Trachea, Via Natural or Artificial Opening (ICD-10-PCS; 2018-10-17)
PROC: 02HV33Z Insertion of Infusion Device into Superior Vena Cava, Percutaneous Approach (ICD-10-PCS; 2018-10-20)
PROC: 5A1955Z Respiratory Ventilation, Greater than 96 Consecutive Hours (ICD-10-PCS; principal; 2018-11-04)
PROC: 0BJ08ZZ Inspection of Tracheobronchial Tree, Via Natural or Artificial Opening Endoscopic (ICD-10-PCS; 2018-11-04)
DX: J96.02 Acute respiratory failure with hypercapnia (principal); I50.33 Acute on chronic diastolic (congestive) heart failure; L89.313 Pressure ulcer of right buttock, stage 3; A41.9 Sepsis, unspecified organism; J18.9 Pneumonia, unspecified organism; E87.2 Acidosis; E66.2 Morbid (severe) obesity with alveolar hypoventilation; E87.3 Alkalosis; G93.49 Other encephalopathy; N17.9 Acute kidney failure, unspecified; Z68.42 Body mass index [BMI] 45.0-49.9, adult; J96.01 Acute respiratory failure with hypoxia; I11.0 Hypertensive heart disease with heart failure; E11.65 Type 2 diabetes mellitus with hyperglycemia; E66.01 Morbid (severe) obesity due to excess calories; R53.81 Other malaise; R00.1 Bradycardia, unspecified; J44.9 Chronic obstructive pulmonary disease, unspecified; F17.200 Nicotine dependence, unspecified, uncomplicated
CPT/HCPCS: 31500; 36415; 36569; 36600; 71045; 74018; 76937; 80048; 80053; 80069; 80202; 80307; 81001; 82550; 82553; 82803; 82962; 83036; 83605; 83735; 83880; 84100; 84132; 84436; 84478; 84479; 84484; 85025; 85610; 85730; 87040; 87081; 87400; 92526; 92610; 93005; 93306; 93970; 94002; 94003; 94640; 94644; 94660; 94664; 94770; 96374; 97110; 97116; 97163; 97530; J0360; J0692; J1170; J1200; J1650; J1815; J1940; J1956; J2060; J2250; J2543; J2765; J2920; J2930; J2997; J3010; J3370; J3475; J3480; J7040; J7042